=== PATIENT | female | born 1960 | race African-American/Black ===

== ENCOUNTER 2017-04-25 23:24 | Inpatient (IN) | payer OTHER ==
[2017-04-25] MEDS ORDERED: ALBUTEROL SO4 2.5/IPRATROPIUM 0.5 INH SOL 3 ML VIAL.NEB. NEB ONE (23:31)
[2017-04-26] MEDS ORDERED: MAGNESIUM SULF 50% (8.12 MEQ/2 ML-1 GM VIAL) IVPB ONE (00:08)
[2017-04-26] MEDS ORDERED: ALBUTEROL SO4 0.083% IH SOL 2.5 MG/3 ML VIAL.NEB. NEB PRN ×2 (00:08→17:13)
[2017-04-26] MEDS ORDERED: methylPREDNISolone NA SUCC 125 MG/2 ML VIAL IVPB ONE (00:08)
--- NOTE | 2017-04-26 00:08 | PDOC ---
History of Present Illness - History of Present Illness Initial Comments: 04/26/17 01:03 The patient is a 55 year old female with a significant past medical history of HTN, DM, and asthma who presents with shortness of breath and hemoptysis today s /p discharge from [facility] after a week admission for asthma exacerbation. She states she does not feel improved after her discharge and reports coughing blood today. She denies chest pain, headache and dizziness. She denies fever, chills, nausea , vomit, diarrhea and constipation. She denies dysuria, frequency, urgency and hematuria. Allergies: NKDA Past surgical history: Pt denies Social history: Pt denies toxic habits PCP - Dr. Harpreet Polo <Sahra Hay - Last Filed: 04/26/17 02:03> <Kyara Grande - Last Filed: 04/26/17 02:35> - General Chief Complaint: Asthma Stated Complaint: ASTHMA Time Seen by Provider: 04/25/17 23:30 Past History <Sahra Hay - Last Filed: 04/26/17 02:03> - Past Medical History Asthma: Yes Diabetes: Yes HTN: Yes Hypercholesterolemia: Yes - Surgical History Cholecystectomy: Yes - Psycho/Social/Smoking Cessation Hx Anxiety: No Suicidal Ideation: No Smoking History: Unknown if ever smoked Number of Cigarettes Smoked Daily: 8 Information on smoking cessation initiated: No Hx Alcohol Use: No Drug/Substance Use Hx: No Substance Use Type: None Hx Substance Use Treatment: No <Kyara Grande - Last Filed: 04/26/17 02:35> - Past Medical History Allergies/Adverse Reactions: Allergies Allergy/AdvReac Type Severity Reaction Status Date / Time No Known Allergies Allergy Verified 04/25/17 23:35 Home Medications: Ambulatory Orders Albuterol 0.083% Nebulizer Chayito [Ventolin 0.083% Nebulizer Soln -] 1 neb NEB Q6H 04/27/15 Furosemide [Lasix -] 20 mg PO DAILY 04/27/15 Hydrochlorothiazide [Hctz -] 25 mg PO DAILY 04/27/15 Insulin (Levemir) [Levemir Flexpen -] 50 units SQ HS 04/27/15 Insulin (Novolog) [Novolog Flexpen] 12 units SQ AM 04/27/15 Lisinopril [Prinivil -] 20 mg PO DAILY 04/27/15 Metoprolol Tartrate [Lopressor -] 50 mg PO DAILY 04/27/15 Verapamil HCl 10 mg PO DAILY 04/27/15 Respiratory Specific PMHX - Complaint Specific PMHX Bronchitis: Yes <HarjinderKyarawinter Arita - Last Filed: 04/26/17 02:35> Review of Systems - Review of Systems Able to Perform ROS?: Yes Comments:: 04/26/17 01:03 CONSTITUTIONAL: Absent: fever, chills, diaphoresis, generalized weakness, malaise, loss of appetite HEENT: Absent: rhinorrhea, nasal congestion, throat pain, throat swelling, difficulty swallowing, mouth swelling, ear pain, eye pain, visual Changes CARDIOVASCULAR: Absent: chest pain, syncope, palpitations, irregular heart rate, lightheadedness , peripheral edema RESPIRATORY: (+) Hemoptysis and shortness of breath, Absent: cough, dyspnea with exertion, orthopnea, wheezing, stridor, GASTROINTESTINAL: Absent: abdominal pain, abdominal distension, nausea, vomiting, diarrhea, constipation, melena, hematochezia GENITOURINARY: Absent: dysuria, frequency, urgency, hesitancy, hematuria, flank pain, genital pain MUSCULOSKELETAL: Absent: myalgia, arthralgia, joint swelling SKIN: Absent: rash, itching, pallor HEMATOLOGIC/IMMUNOLOGIC: Absent: easy bleeding, easy bruising, lymphadenopathy, frequent infections ENDOCRINE: Absent: unexplained weight gain, unexplained weight loss, heat intolerance, cold intolerance NEUROLOGIC: Absent: headache, focal weakness or paresthesias, dizziness, unsteady gait, seizure, mental status changes, bladder or bowel incontinence PSYCHIATRIC: Absent: anxiety, depression, suicidal or homicidal ideation, hallucinations. <Sahra Hay - Last Filed: 04/26/17 02:03> *Physical Exam - Vital Signs Last Vital Signs Temp Pulse Resp BP Pulse Ox 116 H 20 148/104 88 L 04/25/17 23:41 04/25/17 23:41 04/25/17 23:41 04/25/17 23:41 - Physical Exam Comments: 04/26/17 01:04 GENERAL: (+) Well developed, Obese, Awake and alert. In respiratory distress. HEENT: Normocephalic, atraumatic. PERRLA, EOMI. No conjunctival pallor. Sclera are non- icteric. Moist mucous membranes. Oropharynx is clear. NECK: Supple. Full ROM. No JVD. Carotid pulses 2+ and symmetric, without bruits. No thyromegaly. No lymphadenopathy. CARDIOVASCULAR: Regular rate and rhythm. No murmurs, rubs, or gallops. Distal pulses are 2+ and symmetric. PULMONARY: (+) respiratory distress with diffuse wheezing, No rales or rhonchi. ABDOMINAL: Soft. Non-tender. Non-distended. No rebound or guarding. No organomegaly. Normoactive bowel sounds. MUSCULOSKELETAL Normal range of motion at all joints. No bony deformities or tenderness. No CVA tenderness. EXTREMITIES: No cyanosis. No clubbing. No edema. No calf tenderness. SKIN: Warm and dry. Normal capillary refill. No rashes. No jaundice. NEUROLOGICAL: Alert, awake, appropriate. Cranial nerves 2-12 intact. Normoreflexic in the upper and lower extremities. Normal speech. Toes are down-going bilaterally. Gait is normal without ataxia. PSYCHIATRIC: Cooperative. Good eye contact. Appropriate mood and affect. <Sahra Hay - Last Filed: 04/26/17 02:03> - Vital Signs Last Vital Signs Temp Pulse Resp BP Pulse Ox 116 H 20 148/104 88 L 04/25/17 23:41 04/25/17 23:41 04/25/17 23:41 04/25/17 23:41 <Kyara Grande - Last Filed: 04/26/17 02:35> Heart Score/ECG Review - History History: Slightly suspicious - Electrocardiogram EKG: Non specific repolarization disturbance - Age Age: >/= 65 - Risk Factors Risk Factors Heart Score: Yes Hx Hypertension, Yes Hx Diabetes, Yes Hx Obesity Based on the list above the patient has:: >/=3 risk factors or Hx atherosclerotic disease - Troponin Troponin: </= normal limit - Score Heart Score - Total: 5 <Kyara Grande - Last Filed: 04/26/17 02:35> ED Treatment Course - LABORATORY CBC & Chemistry Diagram: 04/26/17 00:25 04/26/17 00:25 - ADDITIONAL ORDERS Additional order review: Laboratory Results 04/26/17 04/26/17 04/26/17 00:25 00:25 00:25 INR 1.03 Sodium Potassium Chloride Carbon Dioxide Anion Gap BUN Creatinine Creat Clearance w eGFR Random Glucose Calcium Total Bilirubin AST ALT Alkaline Phosphatase Creatine Kinase Cancelled Troponin I Cancelled B-Natriuretic Peptide Cancelled Total Protein Albumin 04/26/17 00:25 INR Sodium Cancelled Potassium Cancelled Chloride Cancelled Carbon Dioxide Cancelled Anion Gap Cancelled BUN Cancelled Creatinine Cancelled Creat Clearance w eGFR Cancelled Random Glucose Cancelled Calcium Cancelled Total Bilirubin Cancelled AST Cancelled ALT Cancelled Alkaline Phosphatase Cancelled Creatine Kinase Troponin I B-Natriuretic Peptide Total Protein Cancelled Albumin Cancelled 04/26/17 00:25 RBC 5.55 H MCV 89.1 MCHC 32.3 RDW 17.0 H MPV 8.4 Neutrophils % Y Lymphocytes % Y - RADIOLOGY Radiograph Interpretation: 04/26/17 02:03 Preliminary read of CXR by Dr. Grande reveals cardiomegaly and CHF. - Medications Given in the ED: ED Medications Discontinued Medications Generic Name Dose Route Start Last Admin Trade Name Freq PRN Reason Stop Dose Admin Magnesium Sulfate 2 gm 04/26/17 00:08 04/26/17 00:43 Magnesium Sulfate IVPB 04/26/17 00:09 2 gm ONCE ONE Administration Methylprednisolone Sodium Succinate 125 mg 04/26/17 00:08 04/26/17 00:43 Solu-Medrol - IVPB 04/26/17 00:09 125 mg ONCE ONE Administration <Sahra Hay - Last Filed: 04/26/17 02:03> - LABORATORY CBC & Chemistry Diagram: 04/26/17 00:25 04/26/17 00:25 <Kyara Grande - Last Filed: 04/26/17 02:35> Medical Decision Making - Medical Decision Making 04/26/17 02:07 67-year-old female presents with diffuse wheezing. Patient states that she was just discharged from [facility] earlier today. Past medical history significant for asthma, diabetes, CHF, obesity. EKG is initially tachycardic at 110 Exam patient lab distress, hypoxic on room air, tachycardic with diffuse expiratory wheezing Chest x-ray shows cardiomegaly, congestive heart failure. In reviewing the patient's medications as see that she is already on Lasix. She will be given Lasix IV push Patient's labs hemolyzed and therefore her BNP, chemistry and cardiac enzymes are still pending Plan-labs, IV Lasix, respiratory treatments, admission <Kyara Grande - Last Filed: 04/26/17 02:35> *DC/Admit/Observation/Transfer - Attestations Scribe Attestion: 04/26/17 01:04 Documentation prepared by Sahra Hay, acting as neuropsychology medical consultant for Kyara Grande MD <Sahra Hay - Last Filed: 04/26/17 02:03> - Discharge Dispostion Admit: Yes <Kyara Grande - Last Filed: 04/26/17 02:35> Diagnosis at time of Disposition: CHF (congestive heart failure) Qualifiers: Congestive heart failure type: unspecified congestive heart failure type Congestive heart failure chronicity: acute on chronic Qualified Code(s): I50.9 - Heart failure, unspecified Asthma Qualifiers: Asthma severity: unspecified severity Asthma complication type: uncomplicated Qualified Code(s): J45.909 - Unspecified asthma, uncomplicated Diabetes Qualifiers: Diabetes mellitus type: type 1 Diabetes mellitus complication status: with hyperglycemia Qualified Code(s): E10.65 - Type 1 diabetes mellitus with hyperglycemia - Referrals Referrals: Harpreet Polo MD [Primary Care Provider] -
[2017-04-26] MEDS ORDERED: MAGNESIUM SULF 50% (8.12 MEQ/2 ML-1 GM VIAL) ONE (00:34)
[2017-04-26] MEDS ORDERED: methylPREDNISolone NA SUCC 125 MG/2 ML VIAL ONE (00:34)
[2017-04-26 00:40] LABS: MCH 28.8 pg (25.7-33.7); MCHC 32.3 g/dl (32.0-36.0); MEAN CELL VOLUME 89.1 fl (80-96); MEAN PLT VOLUME 8.4 fl (7.5-11.1); PLATELET COUNT 333 K/MM3 (134-434); WHITE BLOOD COUNT 21.5 K/mm3 (4.0-10.0)
[2017-04-26 00:53] LABS: INR 1.03 (0.82-1.09); PROTHROMBIN TIME (PATIENT) 11.3 SEC (9.98-11.88)
[2017-04-26 01:28] LABS: PLATELET ESTIMATE ADEQUATE (NORMAL); TOTAL CELLS COUNTED 100
[2017-04-26] MEDS ORDERED: ALBUTEROL SO4 2.5/IPRATROPIUM 0.5 INH SOL 3 ML VIAL.NEB. NEB ONE (01:55)
[2017-04-26] MEDS ORDERED: FUROSEMIDE 40 MG/4 ML INJECTABLE VIAL IVPUSH ONE (02:02)
[2017-04-26] MEDS ORDERED: FUROSEMIDE 40 MG/4 ML INJECTABLE VIAL ONE ×3 (02:06→14:14)
[2017-04-26] MEDS ORDERED: ACETAMINOPHEN 325 MG TABLET (FP) ONE (02:16)
[2017-04-26] MEDS ORDERED: ACETAMINOPHEN 325 MG TABLET (FP) PO ONE ×2 (02:19)
[2017-04-26 02:43] LABS: ALBUMIN 2.8 g/dl (3.4-5.0); ALK PHOS 141 U/L (45-117); ANION GAP 10 (8-16); BILIRUBIN,TOTAL 0.5 mg/dL (0.2-1.0); CALCIUM 8.6 mg/dL (8.5-10.1); CO2 31 mmol/L (21-32); CREATININE 0.7 mg/dL (0.55-1.02); GLUCOSE,RANDOM 242 mg/dL (74-106); SGOT/AST 12 U/L (15-37); SGPT/ALT 23 U/L (12-78); TOT PROT 6.3 g/dl (6.4-8.2)
[2017-04-26 02:50] LABS: TROPONIN I 0.05 ng/ml (0.00-0.05)
[2017-04-26 06:08] LABS: TROPONIN I 0.05 ng/ml (0.00-0.05)
[2017-04-26] MEDS: FUROSEMIDE 40 MG/4 ML INJECTABLE VIAL IVPB SCH ×2 (07:11→14:16)
[2017-04-26] MEDS: INSULIN SLIDING SCALE (NOVOLOG) 1 VIAL SQ SCH ×3 (07:26→17:00)
[2017-04-26] MEDS ORDERED: LISINOPRIL 20 MG TABLET (FP) ONE (09:17)
[2017-04-26] MEDS: METOPROLOL TARTRATE 25 MG TABLET (FP) PO SCH (09:31)
[2017-04-26] MEDS: methylPREDNISolone NA SUCC 125 MG/2 ML VIAL IVPB SCH ×2 (09:31→14:52)
[2017-04-26] MEDS: LISINOPRIL 20 MG TABLET (FP) PO SCH (09:31)
[2017-04-26] MEDS ORDERED: CEFTRIAXONE 50 ML ONE (09:31)
[2017-04-26] MEDS ORDERED: LEVOFLOXACIN 750 MG IVPB 150 ML IVPB ONE (09:44)
--- NOTE | 2017-04-26 09:46 | HP ---
Admitting History and Physical - Admission History of Present Illness: 55 year old female with a significant past medical history of HTN, DM, and asthma who presents with shortness of breath and hemoptysis today s/p discharge from [facility] after a week admission for asthma exacerbation. She states she does not feel improved after her discharge and reports coughing blood today. PT C/O COUGH,SOB AND HEMOPTYSIS - Past Medical History Cardiovascular: Yes: HTN, Hyperlipdemia. No: AFIB, CAD Pulmonary: Yes: Asthma, COPD. No: Pulmonary Embolus Gastrointestinal: Yes: GERD. No: Cancer Endocrine: Yes: Diabetes Mellitus - Smoking History Smoking history: Unknown if ever smoked Have you smoked in the past 12 months: No Aproximately how many cigarettes per day: 8 - Alcohol/Substance Use Hx Alcohol Use: No Home Medications - Allergies Allergies/Adverse Reactions: Allergies Allergy/AdvReac Type Severity Reaction Status Date / Time No Known Allergies Allergy Verified 04/25/17 23:35 - Home Medications Home Medications: Ambulatory Orders Furosemide [Lasix -] 40 mg PO DAILY 04/27/15 Insulin (Levemir) [Levemir Flexpen -] 80 units SQ HS 04/27/15 Albuterol 2.5/Ipratropium 0.5 [Duoneb -] 1 neb NEB Q4H PRN 04/26/17 Amlodipine/Valsartan [Amlodipine-Valsartan 5-160 mg] 1 each PO DAILY 04/26/17 Atorvastatin Ca [Lipitor] 10 mg PO HS 04/26/17 Dapagliflozin Propanediol [Farxiga] 10 mg PO DAILY 04/26/17 Linaclotide [Linzess] 145 mcg PO DAILY 04/26/17 Montelukast Na [Singulair -] 10 mg PO HS 04/26/17 Review of Systems - Review of Systems Cardiovascular: reports: Edema, Shortness of Breath. denies: Chest Pain, Palpitations Respiratory: reports: Cough, Hemoptysis, SOB, SOB on Exertion, Wheezing Gastrointestinal: denies: Abdominal Pain, Rectal Bleeding Genitourinary: reports: No Symptoms Neurological: reports: No Symptoms. denies: Change in LOC Physical Examination Vital Signs: Vital Signs Temperature Pulse Rate 108 H 04/26/17 07:10 Respiratory Rate 20 04/26/17 07:10 Blood Pressure 138/92 04/26/17 07:10 O2 Sat by Pulse Oximetry (%) 97 04/26/17 07:29 Neck: Yes: Supple Cardiovascular: Yes: Regular Rate and Rhythm Respiratory: Yes: Diminished, On Nasal O2, Rhonchi, Wheezes Gastrointestinal: Yes: Normal Bowel Sounds, Soft. No: Tenderness Edema: Yes Edema: LLE: 2+, RLE: 2+ Imaging - Results Cat Scan: Report Reviewed Problem List - Problems (1) COPD exacerbation Assessment/Plan: IV STEROIDS IV ABX NEBS PULM CONSULT Code(s): J44.1 - CHRONIC OBSTRUCTIVE PULMONARY DISEASE W (ACUTE) EXACERBATION (2) Hemoptysis Assessment/Plan: MAYBE DUE TO PNA R/O MALIGNANCY Code(s): R04.2 - HEMOPTYSIS (3) Pneumonia Assessment/Plan: ABOVE Code(s): J18.9 - PNEUMONIA, UNSPECIFIED ORGANISM (4) CHF (congestive heart failure) Assessment/Plan: IV LASIX ECHO CARDIO Code(s): I50.9 - HEART FAILURE, UNSPECIFIED Qualifiers: Congestive heart failure type: unspecified congestive heart failure type Congestive heart failure chronicity: acute on chronic Qualified Code(s): I50.9 - Heart failure, unspecified (5) Diabetes Assessment/Plan: INSULIN BGM ENDO Code(s): E11.9 - TYPE 2 DIABETES MELLITUS WITHOUT COMPLICATIONS Qualifiers: Diabetes mellitus type: type 1 Diabetes mellitus complication status: with hyperglycemia Qualified Code(s): E10.65 - Type 1 diabetes mellitus with hyperglycemia (6) Edema Assessment/Plan: LASIX DUPLEX Code(s): R60.9 - EDEMA, UNSPECIFIED
[2017-04-26] MEDS ORDERED: ASPIRIN COATED 81 MG TABLET.EC PO SCH (10:00)
[2017-04-26] MEDS ORDERED: HEPARIN NA (PORCINE) 5,000 UNITS/ML 1ML VIAL SQ SCH (10:00)
[2017-04-26] MEDS ORDERED: CEFTRIAXONE 1 GM in DEXTROSE 5%-WATER - 50 ML IVPB SCH (10:00)
[2017-04-26 10:15] LABS: BASOPHIL 0.3 % (0-2.0); MCHC 32.6 g/dl (32.0-36.0); MEAN CELL VOLUME 89.2 fl (80-96); MEAN PLT VOLUME 8.1 fl (7.5-11.1); NEUTROPHILS 94.4 % (42.8-82.8); PLATELET COUNT 296 K/MM3 (134-434); RDW 16.6 % (11.6-15.6); WHITE BLOOD COUNT 19.2 K/mm3 (4.0-10.0)
[2017-04-26 10:31] LABS: INR 1.09 (0.82-1.09); TROPONIN I 0.03 ng/ml (0.00-0.05)
[2017-04-26 10:34] LABS: ACTIVATED PTT 32.1 SECONDS (26.9-34.4)
--- NOTE | 2017-04-26 11:08 | EKG ---
Test Reason : Blood Pressure : / mmHG Vent. Rate : 110 BPM Atrial Rate : 110 BPM P-R Int : 136 ms QRS Dur : 086 ms QT Int : 348 ms P-R-T Axes : 059 084 074 degrees QTc Int : 470 ms POOR DATA QUALITY, INTERPRETATION MAY BE ADVERSELY AFFECTED SINUS TACHYCARDIA POSSIBLE LEFT ATRIAL ENLARGEMENT SEPTAL INFARCT , AGE UNDETERMINED ABNORMAL ECG WHEN COMPARED WITH ECG OF 17-SEP-2007 18:46, FUSION COMPLEXES ARE NO LONGER PRESENT VENT. RATE HAS INCREASED BY 39 BPM NONSPECIFIC T WAVE ABNORMALITY NO LONGER EVIDENT IN INFERIOR LEADS Confirmed by MEGAN GANDHI MD ([id number]) on 04/26/2017 11:08:03 AM Referred By: Confirmed By:MEGAN GANDHI MD
--- NOTE | 2017-04-26 11:10 | EKG ---
Test Reason : Blood Pressure : / mmHG Vent. Rate : 087 BPM Atrial Rate : 087 BPM P-R Int : 142 ms QRS Dur : 090 ms QT Int : 428 ms P-R-T Axes : 051 113 092 degrees QTc Int : 515 ms NORMAL SINUS RHYTHM POSSIBLE LEFT ATRIAL ENLARGEMENT RIGHT AXIS DEVIATION PROLONGED QT ABNORMAL ECG WHEN COMPARED WITH ECG OF 26-APR-2017 00:34, NO SIGNIFICANT CHANGE WAS FOUND Confirmed by OKSANA MANSFIELD, MEGAN ([id number]) on 04/26/2017 11:10:21 AM Referred By: MARQUIS GARDNER DR Confirmed By:MEGAN GANDHI MD
[2017-04-26] MEDS ORDERED: INSULIN (NOVOLOG) ASPART 100 UNITS/ML 10ML VIAL SQ ONE (13:49)
--- NOTE | 2017-04-26 14:32 | CON.CARD ---
Consult Consult Specialty:: Cardiology Reason for Consultation:: CHF - History of Present Illness History of Present Illness: 57 F diabetic with HTN and asthma with history of NICM sp cath 10/2016 showing EF 50% and no coronary obstruction. She was treated for PNA at [facility] but is readmitted here with hempotosis and dyspnea/edema. There is no chest pain, orthopnea, palpitaitons. Has been complaint with medications prior to admission. At baseline has unlimited exercise capacity. Echocardiogram today showed moderate diffuse LV systolic dysfunction. - History Source History Provided By: Patient, Medical Record Limitations to Obtaining History: No Limitations - Past Medical History Cardio/Vascular: Yes: HTN, Hyperlipdemia, Other. No: AFIB, CAD Pulmonary: Yes: Asthma, COPD. No: Pulmonary Embolus Gastrointestinal: Yes: GERD. No: Cancer Endocrine: Yes: Diabetes Mellitus - Alcohol/Substance Use Hx Alcohol Use: No - Smoking History Smoking history: Unknown if ever smoked Have you smoked in the past 12 months: No Aproximately how many cigarettes per day: 8 Home Medications - Allergies Allergies/Adverse Reactions: Allergies Allergy/AdvReac Type Severity Reaction Status Date / Time No Known Allergies Allergy Verified 04/25/17 23:35 - Home Medications Home Medications: Ambulatory Orders Furosemide [Lasix -] 40 mg PO DAILY 04/27/15 Insulin (Levemir) [Levemir Flexpen -] 80 units SQ HS 04/27/15 Albuterol 2.5/Ipratropium 0.5 [Duoneb -] 1 neb NEB Q4H PRN 04/26/17 Amlodipine/Valsartan [Amlodipine-Valsartan 5-160 mg] 1 each PO DAILY 04/26/17 Atorvastatin Ca [Lipitor] 10 mg PO HS 04/26/17 Dapagliflozin Propanediol [Farxiga] 10 mg PO DAILY 04/26/17 Linaclotide [Linzess] 145 mcg PO DAILY 04/26/17 Montelukast Na [Singulair -] 10 mg PO HS 04/26/17 Review of Systems - Review of Systems Constitutional: reports: No Symptoms Eyes: reports: No Symptoms HENT: reports: No Symptoms Neck: reports: No Symptoms Cardiovascular: reports: Edema, Shortness of Breath Respiratory: reports: Cough, SOB, SOB on Exertion Gastrointestinal: reports: No Symptoms Neurological: reports: No Symptoms Vital Signs: Vital Signs Temperature 97.9 F 04/26/17 13:27 Pulse Rate 87 04/26/17 13:27 Respiratory Rate 19 04/26/17 13:27 Blood Pressure 142/94 04/26/17 13:27 O2 Sat by Pulse Oximetry (%) 97 04/26/17 13:27 Constitutional: Yes: Obese Eyes: Yes: Conjunctiva Clear, EOM Intact HENT: Yes: Atraumatic, Normocephalic Neck: Yes: Supple, Trachea Midline Respiratory: Yes: Rhonchi Gastrointestinal: Yes: Normal Bowel Sounds, Soft Cardiovascular: Yes: Regular Rate and Rhythm JVD: Yes Carotid Bruit: No PMI: Non-Displaced Heart Sounds: Yes: S1, S2 Edema: Yes Edema: LLE: 1+, RLE: 1+ - Other Data Labs, Other Data: CBC, BMP 04/26/17 09:50 INR, PTT INR 1.09 (0.82-1.09) 04/26/17 09:50 Troponin, BNP 04/26/17 04/26/17 05:30 09:50 Troponin I 0.05 0.03 Troponin, BNP 04/26/17 04/26/17 05:30 09:50 Troponin I 0.05 0.03 Laboratory Tests 04/26/17 02:10 B-Natriuretic Peptide 1373.87 H Imaging - Results Chest X-ray: Report Reviewed X-ray: Report Reviewed Cat Scan: Report Reviewed EKG: Image Reviewed (NSR no STT changes.) Problem List - Problems (1) CHF (congestive heart failure) Code(s): I50.9 - HEART FAILURE, UNSPECIFIED Qualifiers: Congestive heart failure type: unspecified congestive heart failure type Congestive heart failure chronicity: acute on chronic Qualified Code(s): I50.9 - Heart failure, unspecified (2) Pneumonia Code(s): J18.9 - PNEUMONIA, UNSPECIFIED ORGANISM Assessment/Plan Diabetic 57 yo woman with prior history of NICM (negative cath 10/2016 EF 50%) multilobar PNA and acute on chronic systolic CHF exacerbation. Rec: Lasix 40mg IV BID continue Valsartan Hold Amlodipine Continue Metoprolol
[2017-04-26] MEDS ORDERED: PNEUMOC 13-VAL CONJ-DIP CRM/PF 0.5 ML DISP.SYRIN IM ONE (16:21)
[2017-04-26 16:42] VITALS: BMI 35.0
[2017-04-26] MEDS ORDERED: PNEUMOCOCCAL 23 VACCINE 0.5 ML VIAL IM ONE (16:45)
--- NOTE | 2017-04-26 16:59 | PN ---
Progress Note (short form) - Note Progress Note: PULMONARY IMP EXTENSIVE BILATERAL CONSOLIDATIONS LIKELY PNEUMONIA,?INFLAMMATORY,?MALIGNANT HEMOPTYSIS SECONDARY TO ABOVE CHF NON-ISCHEMIC CARDIOMYOPATHY MEDIASTINAL AND HILAR ADENOPATHY ?REACTIVE,?MALIGNANT,?SARCOID COPD/ASTHMA ERYTHROCYTOSIS DM HTN LIKEY OSAS PLAN BROAD SPECTRUM ANTIBIOTICS INHALED BRONCHODILATORS O2 STEROID TAPER LASIX CULTURES,AFB SPUTUM CYTOLOGY LEGIONELLA URINARY ANTIGEN COLD AGGLUTININS FLEX BRONCHOSCOPY IF NO IMPROVEMENT MONITOR CBC QUANTIFERON GOLD FOLLOWUP CHEST CT 6-8WKS TO DOCUMENT RESOLUTION OF INFILTRATES SLEEP SCREEN DR LOMELI Problem List - Problems (1) CHF (congestive heart failure) Code(s): I50.9 - HEART FAILURE, UNSPECIFIED Qualifiers: Congestive heart failure type: unspecified congestive heart failure type Congestive heart failure chronicity: acute on chronic Qualified Code(s ): I50.9 - Heart failure, unspecified (2) COPD exacerbation Code(s): J44.1 - CHRONIC OBSTRUCTIVE PULMONARY DISEASE W (ACUTE) EXACERBATION (3) Diabetes Code(s): E11.9 - TYPE 2 DIABETES MELLITUS WITHOUT COMPLICATIONS Qualifiers: Diabetes mellitus type: type 1 Diabetes mellitus complication status: with hyperglycemia Qualified Code(s): E10.65 - Type 1 diabetes mellitus with hyperglycemia (4) Edema Code(s): R60.9 - EDEMA, UNSPECIFIED (5) Hemoptysis Code(s): R04.2 - HEMOPTYSIS (6) Pneumonia Code(s): J18.9 - PNEUMONIA, UNSPECIFIED ORGANISM (7) Mediastinal adenopathy Code(s): R59.0 - LOCALIZED ENLARGED LYMPH NODES (8) Cardiomyopathy Code(s): I42.9 - CARDIOMYOPATHY, UNSPECIFIED
--- NOTE | 2017-04-26 17:16 | PN ---
Progress Note (short form) - Note Progress Note: ID consult dictated imp/reccd 57 year old female PMH diabetes and asthma just admitted at [facility] for cough and asthma- 04/17 to 04/25 she left yesterday and was admitted here last night with SOB, subjective fevers at home and hemoptysis for the last 2 days no weight loss no history of TB Ct scan shows patchy nodular infiltrates including LYL and mediastinal adenopathy originally from [place] spoke to doctor at [facility]- no antibiotics there, treated with steroids and diuretics and nebs pneumonia with hemoptysis- r/o tb infectious- cover for hcap ?inflammatory- r/o sarcoid r/o neoplasm sputum culture sputum afb quant gold esr/crp sputum cytology urinary antigens levaquin and ceftriaxone today given in ED will switch to zosyn/vancomycin-has been in the hospital for 7 days at [facility] will cover for HCAP mediastinal adenopathy asthma exacerbation diabetes d/w pulmonary Problem List - Problems (1) Pneumonia Code(s): J18.9 - PNEUMONIA, UNSPECIFIED ORGANISM (2) Mediastinal adenopathy Code(s): R59.0 - LOCALIZED ENLARGED LYMPH NODES (3) Asthma Code(s): J45.909 - UNSPECIFIED ASTHMA, UNCOMPLICATED Qualifiers: Asthma severity: unspecified severity Asthma complication type: uncomplicated Qualified Code(s): J45.909 - Unspecified asthma, uncomplicated (4) Cardiomyopathy Code(s): I42.9 - CARDIOMYOPATHY, UNSPECIFIED
[2017-04-26] MEDS ORDERED: PIPERACILLIN/TAZOBACTAM 4.5 GM VIAL IVPB ONE (17:58)
[2017-04-26] MEDS ORDERED: DEXTROSE 5%-WATER 100 ML IVPB ONE (17:59)
[2017-04-26] MEDS ORDERED: PIPERACILLIN/TAZOB 4.5 GM/100 ML PRE-DOCKED IVPB SCH (18:00)
[2017-04-26] MEDS: ALBUTEROL SO4 2.5/IPRATROPIUM 0.5 INH SOL 3 ML VIAL.NEB. NEB SCH (18:03)
[2017-04-26] MEDS: PIPERACILLIN/TAZOB 4.5 GM 4.5 GM in DEXTROSE 5%-WATER 100 ML IVPB SCH (18:31)
[2017-04-26] MEDS: methylPREDNISolone NA SUCC 40 MG/1 ML VIAL IVPB SCH (21:59)
[2017-04-26] MEDS ORDERED: INSULIN DETEMIR 100 UNITS/ML MDV SQ SCH (22:00)
[2017-04-26] MEDS ORDERED: VANCOMYCIN 1 GRAM (PRE-DOCKED) 1,000 MG/250 ML BAG IVPB SCH (22:00)
[2017-04-26] MEDS ORDERED: INSULIN (NOVOLOG) ASPART 100 UNITS/ML 10ML VIAL ONE (22:00)
[2017-04-26] MEDS: VANCOMYCIN 1,000 MG in DEXTROSE 5%-WATER - 250 ML IVPB SCH (22:54)
[2017-04-27] MEDS: INSULIN SLIDING SCALE (NOVOLOG) 1 VIAL SQ SCH ×7 (00:31→21:11)
[2017-04-27] MEDS ORDERED: PIPERACILLIN/TAZOBACTAM 4.5 GM VIAL IVPB ONE (00:58)
[2017-04-27] MEDS ORDERED: DEXTROSE 5%-WATER 100 ML IVPB ONE (00:59)
[2017-04-27] MEDS: PIPERACILLIN/TAZOB 4.5 GM 4.5 GM in DEXTROSE 5%-WATER 100 ML IVPB SCH ×2 (02:57→10:36)
[2017-04-27] MEDS: methylPREDNISolone NA SUCC 40 MG/1 ML VIAL IVPB SCH ×4 (03:49→21:10)
[2017-04-27] MEDS: FUROSEMIDE 40 MG/4 ML INJECTABLE VIAL IVPB SCH ×2 (05:47→13:42)
[2017-04-27] MEDS: INSULIN DETEMIR 100 UNITS/ML MDV SQ SCH ×2 (06:11→17:34)
[2017-04-27] MEDS: ALBUTEROL SO4 2.5/IPRATROPIUM 0.5 INH SOL 3 ML VIAL.NEB. NEB SCH ×4 (06:34→18:21)
[2017-04-27 07:26] LABS: BASOPHIL 0.4 % (0-2.0); MCH 28.9 pg (25.7-33.7); MCHC 32.3 g/dl (32.0-36.0); MEAN CELL VOLUME 89.6 fl (80-96); MEAN PLT VOLUME 8.4 fl (7.5-11.1); NEUTROPHILS 88.5 % (42.8-82.8); PLATELET COUNT 293 K/MM3 (134-434); RDW 17.1 % (11.6-15.6)
--- NOTE | 2017-04-27 07:34 | CONS ---
DATE OF CONSULTATION: 04/26/2017 HISTORY OF PRESENT ILLNESS: This is a 57-year-old woman with a past medical history of diabetes and asthma. She was admitted late last night after she was discharged yesterday after spending a week at [facility] for cough and asthma. She reports she got sick about a week ago. She was coughing. Her asthma acted up. She was admitted to [facility]. She was discharged yesterday afternoon. She reported she really did not feel any better. Also reports for the last 2 days she has had hemoptysis. After going home, she felt she had subjective fever and presented to the emergency room. On further conversation with the patient, she was discharged on oral prednisone and was treated for an asthma exacerbation as well as for CHF with diuretics. She did not receive any antibiotics at [facility]. ALLERGIES: She has no known drug allergies. PAST MEDICAL HISTORY: Notable for asthma, diabetes, hypertension, hypercholesterolemia. She knows she has some trouble with her heart. She does not know the nature of this. She is status post cholecystectomy. She has a history of nonischemic cardiomyopathy and is status post catheterization in October 2015 with no coronary obstruction. She had a CAT scan done in the emergency room and was found to have bilateral multifocal pneumonia with nodular infiltrates both of the left upper lobe and left lower lobe with air bronchograms as well as the right lower lobe. She has atelectasis as well. There is no accompanying effusion. She has enlarged mediastinal lymph nodes. She had a duplex of her legs done as well that revealed no DVT. MEDICATIONS AT HOME: Include Lasix, insulin, Duo-Nebs, amlodipine, valsartan, atorvastatin, Farxiga, Linzess, Singulair, and she was on a prednisone taper. SOCIAL HISTORY: She is originally from [place]. 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 She has been on disability for the last 10 years. Currently, she unfortunately lost her apartment and she is living among relatives. There is no history of any cigarette or substance use. PRIMARY CARE PHYSICIAN: Dr. Polo PHYSICAL EXAMINATION:General: She is awake and alert. Vital Signs: Her temperature is 98.7, pulse is 92, blood pressure is 147/88, respiratory rate is 20, she weighs 217 pounds. HEENT: She is normocephalic. Her eyes are anicteric. She has no thrush. Neck: Supple. Lungs: Have scattered rhonchi and wheezes. Heart: Regular rate and rhythm. Abdomen: Soft, nontender. Extremities: Without edema. She has no rash. LABORATORIES: White count is 19.2, hemoglobin 16.1, hematocrit of 49.3, platelets of 296. Her INR is 1. BUN is 19 and creatinine is 0.7 with an alkaline phosphatase of 141. Her CAT scan findings as previously described show multifocal infiltrates and mediastinal adenopathy. ASSESSMENT: In summary, this is a 57-year-old woman originally from [place] with no history of tuberculosis, but she does not know her PPD status, admitted with hemoptysis, just discharged after a 7-day admission to another hospital, [facility]. RECOMMENDATIONS: Given the hemoptysis and the nodular infiltrates, would obtain a QuantiFERON gold, rule out TB. Obtain a regular sputum as well and treat her for HCAP. As well, would consider sarcoid given the nodular infiltrates and mediastinal adenopathy as well as possible neoplasm. Would obtain sputum AFB, sedimentation rate, CRP, sputum cytology, urinary antigens. If she has not had an HIV test, this should be obtained as well. She was given Levaquin and ceftriaxone today in the emergency room. Would switch her to Zosyn and vancomycin. Given the recent admission to [facility], she will need coverage for hospital-acquired pneumonia. Further recommendations to follow. Case was discussed at length with Pulmonary. MILLI DAVIS M.D. JEREMIAH/[id number]
--- NOTE | 2017-04-27 07:51 | CONS ---
DATE OF CONSULTATION: 04/26/2017 REFERRING PHYSICIAN: Ronnie Winkler MD HISTORY OF PRESENT ILLNESS: The patient is a 57-year-old female with a past medical history of nonischemic cardiomyopathy, moderate LV dysfunction, hypertension, asthma, history of tobacco use of a pack per day since age 15 and quit about a month ago, asthma/COPD, hyperlipidemia, admitted to [facility], recently discharged from [facility] on April 25 after hospitalization for asthma exacerbation. Patient apparently was treated with bronchodilators and steroids on previous hospitalization. She was also noted to have elevated WBC as well as hemoglobin and hematocrit. She apparently was evaluated by Hematology. Patient was discharged yesterday and presented to [facility] ER today with complaint of moderate amount of hemoptysis. She also complained of chills and fever, but did not actually take a temp. She denied any chest pain, just complained of shortness of breath. She presented to the emergency room with the above. In the ER she had a CT scan of the chest which revealed extensive bilateral consolidations, also noted mediastinal lymphadenopathy and bilateral hilar adenopathy. Patient was admitted. She was started on antibiotic therapy. She denies any previous history of known hemoptysis. She denies any prior history of pneumonia. She was born in [place], moved to the [place] in the 1980s. There is no history of TB in the past. She denies any history of occupational exposure to chemical fumes. PAST MEDICAL HISTORY: Again includes nonischemic cardiomyopathy, moderate LV dysfunction noted on echocardiogram earlier, hypertension, asthma, diabetes mellitus, COPD, hyperlipidemia, and hypertension. REVIEW OF SYSTEMS: Positive cough, positive shortness of breath, positive hemoptysis, positive chills. No chest pain. No palpitations. No nausea. No vomiting. No diaphoresis. CURRENT MEDICATIONS: Include Solu-Medrol 80 q.6, Prinivil, ceftriaxone, Lopressor, NovoLog, Levemir, Lasix, and Prevnar. PHYSICAL EXAMINATION: General: The patient is an obese female, but awake, alert, in no acute distress. Vital signs: She is currently afebrile, blood pressure 147/88, respiratory rate 20, O2 saturation is 94% on 2 L. HEENT: Head is normocephalic atraumatic. Neck: Supple. Heart: Regular, S1, S2. Chest: Scattered bilateral wheezes and rhonchi. Abdomen: Soft. Bowel sounds are positive. Extremities: No sign of bilateral lower extremity edema. LABORATORIES: Hemoglobin A1c is 10.7, BUN 19, creatinine 0.7. BNP 1373. WBC is 19.2, hemoglobin 16.1, hematocrit 49.3, with a platelet count of 296,000. Chest x-ray shows cardiomegaly, consolidated opacities of bilateral upper lobes compatible with pneumonia. Chest CT showed bilateral patchy consolidations, mediastinal and hilar adenopathy, borderline sized main pulmonary artery. There is determined left adrenal nodule. IMPRESSION: 1. Extensive bilateral consolidations likely pneumonia, treate as health-care- associated pneumonia. 2. Possible neoplasia,Inflammatory. 3. Erythrocytosis. 4. Hemoptysis secondary to pneumonia. 5. Hypertension. 6. Congestive heart failure, most likely a component secondary to pneumonia , nonischemic cardiomyopathy. PLAN: Sputum cytology, C&S, AFB, broad spectrum antibiotics as per Infectious Disease, obtain cultures, check CRP, taper of steroids, follow up chest x-ray, monitor CBC, check O2 saturation at rest and post exercise prior to discharge also consider sleep screen when patient is more stable. Also pulmonary function test as an outpatient. Follow up chest CT as an outpatient to document resolution of consolidations. If no improvement in hemoptysis or infiltrates, will schedule for a flexible bronchoscopy. TAMELA LOMELI M.D. CÉSAR/[id number] MTDD
[2017-04-27 08:00] LABS: ALBUMIN 2.7 g/dl (3.4-5.0); ANION GAP 9 (8-16); BILIRUBIN,TOTAL 0.7 mg/dL (0.2-1.0); C-REACTIVE PROTEIN 10.7 MG/DL (0.00-0.3); CO2 33 mmol/L (21-32); CREATININE 0.7 mg/dL (0.55-1.02); GLUCOSE,RANDOM 272 mg/dL (74-106); SGOT/AST 13 U/L (15-37); SGPT/ALT 26 U/L (12-78); TOT PROT 6.5 g/dl (6.4-8.2)
[2017-04-27 08:01] LABS: ALK PHOS 188 U/L (45-117)
[2017-04-27] MEDS ORDERED: PT OWN MED DRAWER 7, Y5N ONE ×3 (08:49→20:55)
--- NOTE | 2017-04-27 08:57 | PN ---
Progress Note, Physician History of Present Illness: FEELS BETTER LESS SOB NO CP - Current Medication List Current Medications: Active Medications Albuterol Sulfate (Ventolin 0.083% Nebulizer Soln -) 1 amp NEB Q4H PRN PRN Reason: SHORT OF BREATH/WHEEZING Albuterol/Ipratropium (Duoneb -) 1 amp NEB QIDR [facility] Last Admin: 04/27/17 06:34 Dose: 1 amp Furosemide (Lasix Injection -) 40 mg IVPB BIDLASIX [facility] Last Admin: 04/27/17 05:47 Dose: 40 mg Piperacillin Sod/Tazobactam (Sod 4.5 gm/ Dextrose) 100 mls @ 200 mls/hr IVPB Q8H-IV [facility] Last Admin: 04/27/17 02:57 Dose: 200 mls/hr Vancomycin HCl 1,000 mg/ (Dextrose) 250 mls @ 250 mls/hr IVPB BID [facility] Last Admin: 04/26/17 22:54 Dose: 250 mls/hr Insulin Aspart (Novolog Vial Sliding Scale -) 1 vial SQ Q4HPO [facility] PRN Reason: Protocol Last Admin: 04/27/17 06:10 Dose: 8 units Insulin Detemir (Levemir Vial) 50 units SQ BIDI [facility] Last Admin: 04/27/17 06:11 Dose: 50 units Lisinopril (Prinivil) 20 mg PO DAILY [facility] Last Admin: 04/26/17 09:31 Dose: 20 mg Methylprednisolone Sodium Succinate (Solu-Medrol -) 40 mg IVPB Q6H-IV [facility] Last Admin: 04/27/17 03:49 Dose: 40 mg Metoprolol Tartrate (Lopressor -) 25 mg PO DAILY [facility] Last Admin: 04/26/17 09:31 Dose: 25 mg - Objective Vital Signs: Vital Signs Temperature 97.9 F 04/27/17 06:00 Pulse Rate 86 04/27/17 06:00 Respiratory Rate 19 04/27/17 06:00 Blood Pressure 142/84 04/27/17 06:00 O2 Sat by Pulse Oximetry (%) 97 04/27/17 06:00 Cardiovascular: Yes: Murmur, S1, S2 Respiratory: Yes: Rales, Rhonchi Gastrointestinal: Yes: Normal Bowel Sounds, Soft Labs: CBC, BMP 04/27/17 05:35 04/27/17 05:35 INR, PTT INR 1.09 (0.82-1.09) 04/26/17 09:50 Problem List - Problems (1) COPD exacerbation Assessment/Plan: IV STEROIDS IV ABX NEBS PULM CONSULT Code(s): J44.1 - CHRONIC OBSTRUCTIVE PULMONARY DISEASE W (ACUTE) EXACERBATION (2) Hemoptysis Assessment/Plan: MAYBE DUE TO PNA R/O MALIGNANCY PULM/ID ON BOARD ISOLATION Code(s): R04.2 - HEMOPTYSIS (3) Pneumonia Code(s): J18.9 - PNEUMONIA, UNSPECIFIED ORGANISM (4) CHF (congestive heart failure) Assessment/Plan: IV LASIX ECHO CARDIO Code(s): I50.9 - HEART FAILURE, UNSPECIFIED Qualifiers: Congestive heart failure type: unspecified congestive heart failure type Congestive heart failure chronicity: acute on chronic Qualified Code(s ): I50.9 - Heart failure, unspecified (5) Diabetes Assessment/Plan: INSULIN BGM ENDO Code(s): E11.9 - TYPE 2 DIABETES MELLITUS WITHOUT COMPLICATIONS Qualifiers: Diabetes mellitus type: type 1 Diabetes mellitus complication status: with hyperglycemia Qualified Code(s): E10.65 - Type 1 diabetes mellitus with hyperglycemia (6) Edema Assessment/Plan: LASIX DUPLEX Code(s): R60.9 - EDEMA, UNSPECIFIED
[2017-04-27] MEDS: LISINOPRIL 20 MG TABLET (FP) PO SCH (09:09)
[2017-04-27] MEDS: METOPROLOL TARTRATE 25 MG TABLET (FP) PO SCH (09:09)
[2017-04-27] MEDS: VANCOMYCIN 1,000 MG in DEXTROSE 5%-WATER - 250 ML IVPB SCH (09:09)
[2017-04-27] MEDS ORDERED: PIPERACILLIN/TAZOB 4.5 GM 4.5 GM in SODIUM CHLORIDE 100 ML IVPB SCH (10:28)
[2017-04-27] MEDS ORDERED: INSULIN (NOVOLOG) ASPART 100 UNITS/ML 10ML VIAL ONE (10:28)
[2017-04-27] MEDS: PIPERACILLIN/TAZOB 4.5 GM 4.5 GM in SODIUM CHLORIDE 100 ML IVPB SCH ×2 (10:35→17:35)
--- NOTE | 2017-04-27 12:21 | PN ---
Progress Note (short form) - Note Progress Note: Feels a little better today. No francisco hemoptysis, but some blood tinged sputum. Intake & Output 04/24/17 04/25/17 04/26/17 04/27/17 23:59 23:59 23:59 23:59 Intake Total 310 1050 Balance 310 1050 Weight 195 lb 217 lb 220 lb Last Vital Signs Temp Pulse Resp BP Pulse Ox 97.9 F 82 19 142/84 95 04/27/17 06:00 04/27/17 11:31 04/27/17 06:00 04/27/17 06:00 04/27/17 11:31 Active Medications Albuterol Sulfate (Ventolin 0.083% Nebulizer Soln -) 1 amp NEB Q4H PRN PRN Reason: SHORT OF BREATH/WHEEZING Albuterol/Ipratropium (Duoneb -) 1 amp NEB QIDR [facility] Last Admin: 04/27/17 11:32 Dose: 1 amp Furosemide (Lasix Injection -) 40 mg IVPB BIDLASIX [facility] Last Admin: 04/27/17 05:47 Dose: 40 mg Vancomycin HCl 1,000 mg/ (Sodium Chloride) 250 mls @ 166.667 mls/hr IVPB BID [facility] Piperacillin Sod/Tazobactam (Sod 4.5 gm/ Sodium Chloride) 100 mls @ 200 mls/hr IVPB Q8H-IV [facility] Last Admin: 04/27/17 10:35 Dose: 200 mls/hr Insulin Aspart (Novolog Vial Sliding Scale -) 1 vial SQ Q4HPO [facility] PRN Reason: Protocol Last Admin: 04/27/17 10:35 Dose: 5 units Insulin Detemir (Levemir Vial) 50 units SQ BIDI [facility] Last Admin: 04/27/17 06:11 Dose: 50 units Lisinopril (Prinivil) 20 mg PO DAILY [facility] Last Admin: 04/27/17 09:09 Dose: 20 mg Methylprednisolone Sodium Succinate (Solu-Medrol -) 40 mg IVPB Q6H-IV [facility] Last Admin: 04/27/17 08:08 Dose: 40 mg Metoprolol Tartrate (Lopressor -) 25 mg PO DAILY [facility] Last Admin: 04/27/17 09:09 Dose: 25 mg Constitutional: Yes: NAD, Obese Eyes: Yes: Conjunctiva Clear, EOM Intact HENT: Yes: Atraumatic, Normocephalic Neck: Yes: Supple, Trachea Midline Respiratory: Yes: Bilateral Rhonchi, no wheeze Gastrointestinal: Yes: Normal Bowel Sounds, Soft Cardiovascular: Yes: Regular Rate and Rhythm JVD: Yes Carotid Bruit: No PMI: Non-Displaced Heart Sounds: Yes: S1, S2 Edema: Yes Edema: LLE: 1+, RLE: 1+ Laboratory Results - last 24 hr 04/26/17 04/26/17 04/26/17 13:42 17:01 22:05 WBC RBC Hgb Hct MCV MCH MCHC RDW Plt Count MPV Neutrophils % Lymphocytes % Monocytes % Eosinophils % Basophils % ESR Sodium Potassium Chloride Carbon Dioxide Anion Gap BUN Creatinine Creat Clearance w eGFR POC Glucometer [phone] 506 Random Glucose Calcium Total Bilirubin AST ALT Alkaline Phosphatase C-Reactive Protein Total Protein Albumin 04/26/17 04/27/17 04/27/17 22:15 02:53 05:35 WBC 17.0 H RBC 5.34 H Hgb 15.5 H Hct 47.8 H MCV 89.6 MCH 28.9 MCHC 32.3 RDW 17.1 H Plt Count 293 MPV 8.4 Neutrophils % 88.5 H Lymphocytes % 5.2 L D Monocytes % 5.9 D Eosinophils % 0.0 Basophils % 0.4 ESR Sodium Potassium Chloride Carbon Dioxide Anion Gap BUN Creatinine Creat Clearance w eGFR POC Glucometer 381 Random Glucose 548 H* D Calcium Total Bilirubin AST ALT Alkaline Phosphatase C-Reactive Protein Total Protein Albumin 04/27/17 04/27/17 04/27/17 05:35 05:35 05:35 WBC RBC Hgb Hct MCV MCH MCHC RDW Plt Count MPV Neutrophils % Lymphocytes % Monocytes % Eosinophils % Basophils % ESR 13 Sodium 140 Potassium 3.7 Chloride 98 Carbon Dioxide 33 H Anion Gap 9 BUN 25 H D Creatinine 0.7 Creat Clearance w eGFR > 60 POC Glucometer Random Glucose 272 H D Calcium 9.0 Total Bilirubin 0.7 D AST 13 L ALT 26 Alkaline Phosphatase 188 H D C-Reactive Protein 10.7 H Cancelled Total Protein 6.5 Albumin 2.7 L 04/27/17 04/27/17 05:45 10:32 WBC RBC Hgb Hct MCV MCH MCHC RDW Plt Count MPV Neutrophils % Lymphocytes % Monocytes % Eosinophils % Basophils % ESR Sodium Potassium Chloride Carbon Dioxide Anion Gap BUN Creatinine Creat Clearance w eGFR POC Glucometer 234 160 Random Glucose Calcium Total Bilirubin AST ALT Alkaline Phosphatase C-Reactive Protein Total Protein Albumin Problem List - Problems (1) CHF (congestive heart failure) Code(s): I50.9 - HEART FAILURE, UNSPECIFIED Qualifiers: Qualified Code(s): I50.9 - Heart failure, unspecified (2) COPD exacerbation Code(s): J44.1 - CHRONIC OBSTRUCTIVE PULMONARY DISEASE W (ACUTE) EXACERBATION (3) Diabetes Code(s): E11.9 - TYPE 2 DIABETES MELLITUS WITHOUT COMPLICATIONS Qualifiers: Qualified Code(s): E10.65 - Type 1 diabetes mellitus with hyperglycemia (4) Edema Code(s): R60.9 - EDEMA, UNSPECIFIED (5) Hemoptysis Code(s): R04.2 - HEMOPTYSIS (6) Pneumonia Code(s): J18.9 - PNEUMONIA, UNSPECIFIED ORGANISM (7) Mediastinal adenopathy Code(s): R59.0 - LOCALIZED ENLARGED LYMPH NODES (8) Cardiomyopathy Code(s): I42.9 - CARDIOMYOPATHY, UNSPECIFIED IMP EXTENSIVE BILATERAL CONSOLIDATIONS LIKELY PNEUMONIA,?INFLAMMATORY,?MALIGNANT HEMOPTYSIS SECONDARY TO ABOVE CHF NON-ISCHEMIC CARDIOMYOPATHY MEDIASTINAL AND HILAR ADENOPATHY ?REACTIVE,?MALIGNANT,?SARCOID COPD/ASTHMA ERYTHROCYTOSIS DM HTN LIKEY OSAS PLAN BROAD SPECTRUM ANTIBIOTICS PER ID INHALED BRONCHODILATORS O2 STEROIDS CULTURES,AFB SPUTUM CYTOLOGY COLD AGGLUTININS MAY NEED FLEX BRONCHOSCOPY IF NO IMPROVEMENT QUANTIFERON GOLD FOLLOWUP CHEST CT 6-8WKS TO DOCUMENT RESOLUTION OF INFILTRATES SLEEP SCREEN AN OUTPATIENT DR HICKMAN
--- NOTE | 2017-04-27 14:21 | PN ---
Progress Note, Physician Chief Complaint: Cardiology FU Less SOB Telem NSR History of Present Illness: 57 F diabetic with HTN and asthma with history of NICM sp cath 10/2016 showing EF 50% and no coronary obstruction. She was treated for PNA at [facility] but is readmitted here with hempotosis and dyspnea/edema. There is no chest pain, orthopnea, palpitaitons. Has been complaint with medications prior to admission. At baseline has unlimited exercise capacity. Echocardiogram today showed moderate diffuse LV systolic dysfunction. - Current Medication List Current Medications: Active Medications Albuterol Sulfate (Ventolin 0.083% Nebulizer Soln -) 1 amp NEB Q4H PRN PRN Reason: SHORT OF BREATH/WHEEZING Albuterol/Ipratropium (Duoneb -) 1 amp NEB QIDR [facility] Last Admin: 04/27/17 11:32 Dose: 1 amp Furosemide (Lasix Injection -) 40 mg IVPB BIDLASIX [facility] Last Admin: 04/27/17 13:42 Dose: 40 mg Vancomycin HCl 1,000 mg/ (Sodium Chloride) 250 mls @ 166.667 mls/hr IVPB BID [facility] Piperacillin Sod/Tazobactam (Sod 4.5 gm/ Sodium Chloride) 100 mls @ 200 mls/hr IVPB Q8H-IV [facility] Last Admin: 04/27/17 10:35 Dose: 200 mls/hr Insulin Aspart (Novolog Vial Sliding Scale -) 1 vial SQ Q4HPO [facility] PRN Reason: Protocol Last Admin: 04/27/17 10:35 Dose: 5 units Insulin Detemir (Levemir Vial) 50 units SQ BIDI [facility] Last Admin: 04/27/17 06:11 Dose: 50 units Lisinopril (Prinivil) 20 mg PO DAILY [facility] Last Admin: 04/27/17 09:09 Dose: 20 mg Methylprednisolone Sodium Succinate (Solu-Medrol -) 40 mg IVPB Q6H-IV [facility] Last Admin: 04/27/17 08:08 Dose: 40 mg Metoprolol Tartrate (Lopressor -) 25 mg PO DAILY [facility] Last Admin: 04/27/17 09:09 Dose: 25 mg - Objective Vital Signs: Vital Signs Temperature 97.9 F 04/27/17 06:00 Pulse Rate 82 04/27/17 11:31 Respiratory Rate 19 04/27/17 06:00 Blood Pressure 142/84 04/27/17 06:00 O2 Sat by Pulse Oximetry (%) 95 04/27/17 11:31 Constitutional: Yes: Well Nourished, No Distress Eyes: Yes: Conjunctiva Clear, EOM Intact HENT: Yes: Atraumatic, Normocephalic Neck: Yes: Supple, Trachea Midline Cardiovascular: Yes: Regular Rate and Rhythm, JVD Respiratory: Yes: Regular, Rales, Rhonchi, SOB Gastrointestinal: Yes: Normal Bowel Sounds, Soft ...Rectal Exam: Yes: WNL Edema: Yes Edema: LLE: 1+, RLE: 1+ Labs: CBC, BMP 04/27/17 05:35 04/27/17 05:35 INR, PTT INR 1.09 (0.82-1.09) 04/26/17 09:50 Problem List - Problems (1) CHF (congestive heart failure) Code(s): I50.9 - HEART FAILURE, UNSPECIFIED Qualifiers: Congestive heart failure type: unspecified congestive heart failure type Congestive heart failure chronicity: acute on chronic Qualified Code(s ): I50.9 - Heart failure, unspecified (2) Pneumonia Code(s): J18.9 - PNEUMONIA, UNSPECIFIED ORGANISM Assessment/Plan Diabetic 57 yo woman with prior history of NICM (negative cath 10/2016 EF 50%) multilobar PNA and acute on chronic systolic CHF exacerbation. Rec: Continue Lasix 40mg IV BID Still volume up. Repeat BNP in AM
[2017-04-27] MEDS: VANCOMYCIN 1,000 MG in SODIUM CHLORIDE 250 ML IVPB SCH (21:11)
[2017-04-28] MEDS: ALBUTEROL SO4 2.5/IPRATROPIUM 0.5 INH SOL 3 ML VIAL.NEB. NEB SCH ×5 (00:05→23:14)
--- NOTE | 2017-04-28 00:29 | CONSULT ---
Consult Consult Specialty:: endocrine Referred by:: dr.annabi villanueva Reason for Consultation:: diabetes mellitus - History of Present Illness Chief Complaint: high sugars History of Present Illness: 57 y female,pmh diabetes mellitus,htn paty katz dc from [facility] after admission for respiratory illness readmitted with respiratory difficulty cough weakness,wheezing dyspnea,and chest tightness,has had elevated blood sugars,despite insulin doses on iv steroids for copd excarcerbation - History Source History Provided By: Patient - Past Medical History Cardio/Vascular: Yes: HTN, Hyperlipdemia, Other. No: AFIB, CAD Pulmonary: Yes: Asthma, COPD. No: Pulmonary Embolus Gastrointestinal: Yes: GERD. No: Cancer Endocrine: Yes: Diabetes Mellitus - Alcohol/Substance Use Hx Alcohol Use: No - Smoking History Smoking history: Former smoker Have you smoked in the past 12 months: Yes Aproximately how many cigarettes per day: 8 If you are a former smoker, when did you quit?: 1 month ago Home Medications - Allergies Allergies/Adverse Reactions: Allergies Allergy/AdvReac Type Severity Reaction Status Date / Time No Known Allergies Allergy Verified 04/25/17 23:35 - Home Medications Home Medications: Ambulatory Orders Furosemide [Lasix -] 40 mg PO DAILY 04/27/15 Insulin (Levemir) [Levemir Flexpen -] 80 units SQ HS 04/27/15 Albuterol 2.5/Ipratropium 0.5 [Duoneb -] 1 neb NEB Q4H PRN 04/26/17 Amlodipine/Valsartan [Amlodipine-Valsartan 5-160 mg] 1 each PO DAILY 04/26/17 Atorvastatin Ca [Lipitor] 10 mg PO HS 04/26/17 Dapagliflozin Propanediol [Farxiga] 10 mg PO DAILY 04/26/17 Linaclotide [Linzess] 145 mcg PO DAILY 04/26/17 Montelukast Na [Singulair -] 10 mg PO HS 04/26/17 Review of Systems - Review of Systems Constitutional: reports: Lethargy, Weakness Eyes: reports: No Symptoms HENT: reports: No Symptoms Neck: reports: No Symptoms Cardiovascular: reports: No Symptoms, Shortness of Breath Respiratory: reports: Exercise Intolerance, SOB, SOB on Exertion Gastrointestinal: reports: No Symptoms Genitourinary: reports: No Symptoms Breasts: reports: No Symptoms Reported Musculoskeletal: reports: Muscle Cramps, Muscle Weakness Integumentary: reports: No Symptoms Neurological: reports: No Symptoms Physical Exam Vital Signs: Vital Signs Temperature 98.2 F 04/27/17 22:00 Pulse Rate 98 H 04/27/17 22:00 Respiratory Rate 20 04/27/17 22:00 Blood Pressure 158/86 04/27/17 22:00 O2 Sat by Pulse Oximetry (%) 95 04/27/17 21:00 Constitutional: Yes: Anxious Eyes: Yes: EOM Intact HENT: Yes: Normocephalic Neck: Yes: Trachea Midline Cardiovascular: Yes: Tachycardia Respiratory: Yes: Rhonchi, Tachypnea, Wheezes Gastrointestinal: Yes: Normal Bowel Sounds ...Rectal Exam: Yes: Deferred Renal/: Yes: WNL Musculoskeletal: Yes: WNL Extremities: Yes: WNL Edema: No Neurological: Yes: Alert, Oriented Labs: CBC, BMP 04/27/17 05:35 04/27/17 21:45 Problem List - Problems (1) Asthma Code(s): J45.909 - UNSPECIFIED ASTHMA, UNCOMPLICATED Qualifiers: Asthma severity: unspecified severity Asthma complication type: uncomplicated Qualified Code(s): J45.909 - Unspecified asthma, uncomplicated (2) CHF (congestive heart failure) Code(s): I50.9 - HEART FAILURE, UNSPECIFIED Qualifiers: Congestive heart failure type: unspecified congestive heart failure type Congestive heart failure chronicity: acute on chronic Qualified Code(s ): I50.9 - Heart failure, unspecified (3) COPD exacerbation Code(s): J44.1 - CHRONIC OBSTRUCTIVE PULMONARY DISEASE W (ACUTE) EXACERBATION (4) Cardiomyopathy Code(s): I42.9 - CARDIOMYOPATHY, UNSPECIFIED (5) Diabetes Code(s): E11.9 - TYPE 2 DIABETES MELLITUS WITHOUT COMPLICATIONS Qualifiers: Diabetes mellitus type: type 1 Diabetes mellitus complication status: with hyperglycemia Qualified Code(s): E10.65 - Type 1 diabetes mellitus with hyperglycemia (6) Edema Code(s): R60.9 - EDEMA, UNSPECIFIED Assessment/Plan Current Active Problems Asthma (Acute) CHF (congestive heart failure) (Acute) COPD exacerbation (Acute) Cardiomyopathy (Acute) Diabetes (Acute) Edema (Acute) Hemoptysis (Acute) Mediastinal adenopathy (Acute) Pneumonia (Acute) hyperglycemia insulin resistant Abnormal Lab Results 04/27/17 04/27/17 04/27/17 05:35 05:35 21:45 WBC 17.0 H RBC 5.34 H Hgb 15.5 H Hct 47.8 H RDW 17.1 H Neutrophils % 88.5 H Lymphocytes % 5.2 L D Carbon Dioxide 33 H BUN 25 H D Random Glucose 272 H D 469 H* D AST 13 L Alkaline Phosphatase 188 H D C-Reactive Protein 10.7 H Albumin 2.7 L Laboratory Results - last 24 hr 04/27/17 04/27/17 04/27/17 02:53 05:35 05:35 WBC 17.0 H RBC 5.34 H Hgb 15.5 H Hct 47.8 H MCV 89.6 MCH 28.9 MCHC 32.3 RDW 17.1 H Plt Count 293 MPV 8.4 Neutrophils % 88.5 H Lymphocytes % 5.2 L D Monocytes % 5.9 D Eosinophils % 0.0 Basophils % 0.4 ESR Sodium 140 Potassium 3.7 Chloride 98 Carbon Dioxide 33 H Anion Gap 9 BUN 25 H D Creatinine 0.7 Creat Clearance w eGFR > 60 POC Glucometer 381 Random Glucose 272 H D Calcium 9.0 Total Bilirubin 0.7 D AST 13 L ALT 26 Alkaline Phosphatase 188 H D C-Reactive Protein 10.7 H Total Protein 6.5 Albumin 2.7 L 04/27/17 04/27/17 04/27/17 05:35 05:35 05:45 WBC RBC Hgb Hct MCV MCH MCHC RDW Plt Count MPV Neutrophils % Lymphocytes % Monocytes % Eosinophils % Basophils % ESR 13 Sodium Potassium Chloride Carbon Dioxide Anion Gap BUN Creatinine Creat Clearance w eGFR POC Glucometer 234 Random Glucose Calcium Total Bilirubin AST ALT Alkaline Phosphatase C-Reactive Protein Cancelled Total Protein Albumin 04/27/17 04/27/17 04/27/17 10:32 21:01 21:45 WBC RBC Hgb Hct MCV MCH MCHC RDW Plt Count MPV Neutrophils % Lymphocytes % Monocytes % Eosinophils % Basophils % ESR Sodium Potassium Chloride Carbon Dioxide Anion Gap BUN Creatinine Creat Clearance w eGFR POC Glucometer 160 492 Random Glucose 469 H* D Calcium Total Bilirubin AST ALT Alkaline Phosphatase C-Reactive Protein Total Protein Albumin plan: Current Medications Generic Name Dose Route Start Last Admin Trade Name Freq PRN Reason Stop Dose Admin Albuterol Sulfate 1 amp 04/26/17 17:13 Ventolin 0.083% Nebulizer Soln - NEB Q4H PRN SHORT OF BREATH/WHEEZING Albuterol/Ipratropium 1 amp 04/26/17 18:00 04/27/17 18:21 Duoneb - NEB 1 amp QIDR LETA Administration Furosemide 40 mg 04/26/17 06:00 04/27/17 13:42 Lasix Injection - IVPB 40 mg BIDLASIX LETA Administration Vancomycin HCl 1,000 mg/ 250 mls @ 166.667 mls/hr 04/27/17 10:27 04/27/17 21:11 Sodium Chloride IVPB 166.667 mls/hr BID LETA Administration Piperacillin Sod/Tazobactam 100 mls @ 200 mls/hr 04/28/17 02:00 Sod 4.5 gm/ Sodium Chloride IVPB Q8H-IV LETA Insulin Aspart 1 vial 04/28/17 00:22 Novolog Vial Sliding Scale - SQ Q4HPO ON LICENSE OF [facility] Protocol Insulin Detemir 50 units 04/27/17 07:00 04/27/17 17:34 Levemir Vial SQ 50 units BIDI LETA Administration Lisinopril 20 mg 04/26/17 10:00 04/27/17 09:09 Prinivil PO 20 mg DAILY ON LICENSE OF [facility] Administration Methylprednisolone Sodium Succinate 40 mg 04/26/17 21:00 04/27/17 21:10 Solu-Medrol - IVPB 40 mg Q6H-IV LETA Administration Metoprolol Tartrate 25 mg 04/26/17 10:00 04/27/17 09:09 Lopressor - PO 25 mg DAILY LETA Administration ch hba1c continue to taper doses of steroid and insulin once sugars improve Laboratory Tests 04/26/17 05:30 Hemoglobin A1c % 10.7 H
[2017-04-28] MEDS: methylPREDNISolone NA SUCC 40 MG/1 ML VIAL IVPB SCH ×3 (02:00→21:44)
[2017-04-28] MEDS: PIPERACILLIN/TAZOB 4.5 GM 4.5 GM in SODIUM CHLORIDE 100 ML IVPB SCH ×3 (02:00→17:39)
[2017-04-28] MEDS: INSULIN SLIDING SCALE (NOVOLOG) 1 VIAL SQ SCH ×6 (02:07→21:44)
[2017-04-28] MEDS: FUROSEMIDE 40 MG/4 ML INJECTABLE VIAL IVPB SCH ×2 (06:34→14:29)
[2017-04-28] MEDS: INSULIN DETEMIR 100 UNITS/ML MDV SQ SCH ×2 (06:34→17:22)
--- NOTE | 2017-04-28 07:54 | PN ---
Progress Note, Physician History of Present Illness: FEELS BETTER LESS SOB NO CP - Current Medication List Current Medications: Active Medications Albuterol Sulfate (Ventolin 0.083% Nebulizer Soln -) 1 amp NEB Q4H PRN PRN Reason: SHORT OF BREATH/WHEEZING Albuterol/Ipratropium (Duoneb -) 1 amp NEB QIDR [facility] Last Admin: 04/28/17 06:50 Dose: 1 amp Furosemide (Lasix Injection -) 40 mg IVPB BIDLASIX [facility] Last Admin: 04/28/17 06:34 Dose: 40 mg Vancomycin HCl 1,000 mg/ (Sodium Chloride) 250 mls @ 166.667 mls/hr IVPB BID [facility] Last Admin: 04/27/17 21:11 Dose: 166.667 mls/hr Piperacillin Sod/Tazobactam (Sod 4.5 gm/ Sodium Chloride) 100 mls @ 200 mls/hr IVPB Q8H-IV [facility] Last Admin: 04/28/17 02:00 Dose: 200 mls/hr Insulin Aspart (Novolog Vial Sliding Scale -) 1 vial SQ Q4HPO [facility] PRN Reason: Protocol Last Admin: 04/28/17 06:33 Dose: 7 unit Insulin Detemir (Levemir Vial) 50 units SQ BIDI [facility] Last Admin: 04/28/17 06:34 Dose: 50 units Lisinopril (Prinivil) 20 mg PO DAILY [facility] Last Admin: 04/27/17 09:09 Dose: 20 mg Methylprednisolone Sodium Succinate (Solu-Medrol -) 40 mg IVPB BID [facility] Metoprolol Tartrate (Lopressor -) 25 mg PO DAILY [facility] Last Admin: 04/27/17 09:09 Dose: 25 mg - Objective Vital Signs: Vital Signs Temperature 98.2 F 04/27/17 22:00 Pulse Rate 98 H 04/27/17 22:00 Respiratory Rate 20 04/27/17 22:00 Blood Pressure 158/86 04/27/17 22:00 O2 Sat by Pulse Oximetry (%) 95 04/27/17 21:00 Cardiovascular: Yes: S1, S2 Respiratory: Yes: Rhonchi Gastrointestinal: Yes: Normal Bowel Sounds, Soft Labs: CBC, BMP 04/27/17 05:35 04/27/17 21:45 INR, PTT INR 1.09 (0.82-1.09) 04/26/17 09:50 Problem List - Problems (1) COPD exacerbation Assessment/Plan: IV STEROIDS-TAPER IV ABX NEBS PULM CONSULT Code(s): J44.1 - CHRONIC OBSTRUCTIVE PULMONARY DISEASE W (ACUTE) EXACERBATION (2) Hemoptysis Assessment/Plan: MAYBE DUE TO PNA R/O MALIGNANCY PULM/ID ON BOARD ISOLATION AFB GOLD Code(s): R04.2 - HEMOPTYSIS (3) Pneumonia Code(s): J18.9 - PNEUMONIA, UNSPECIFIED ORGANISM (4) CHF (congestive heart failure) Assessment/Plan: IV LASIX ECHO CARDIO Code(s): I50.9 - HEART FAILURE, UNSPECIFIED Qualifiers: Congestive heart failure type: unspecified congestive heart failure type Congestive heart failure chronicity: acute on chronic Qualified Code(s ): I50.9 - Heart failure, unspecified (5) Diabetes Assessment/Plan: INSULIN BGM ENDO Code(s): E11.9 - TYPE 2 DIABETES MELLITUS WITHOUT COMPLICATIONS Qualifiers: Diabetes mellitus type: type 1 Diabetes mellitus complication status: with hyperglycemia Qualified Code(s): E10.65 - Type 1 diabetes mellitus with hyperglycemia (6) Edema Assessment/Plan: LASIX DUPLEX Code(s): R60.9 - EDEMA, UNSPECIFIED
[2017-04-28] MEDS: METOPROLOL TARTRATE 25 MG TABLET (FP) PO SCH (09:36)
[2017-04-28] MEDS: LISINOPRIL 20 MG TABLET (FP) PO SCH (09:36)
[2017-04-28] MEDS: VANCOMYCIN 1,000 MG in SODIUM CHLORIDE 250 ML IVPB SCH ×2 (10:39→21:44)
--- NOTE | 2017-04-28 11:38 | PN ---
Progress Note (short form) - Note Progress Note: no more hemoptysis still with productive cough refused interpretor phone- spoke with her at length via daughter translating via cell phone no history of TBno history of HIV- consents to testing NO chronic steroid use was at [facility] about 3 months ago for asthma, discharged on steroid taper- only takes prednisone for flares currently [facility] at [facility] for the last one month- she is homeless Vital Signs Period Temp Pulse Resp BP Sys/Plasencia Pulse Ox Last 24 Hr 97.0 F-99.2 F 93-98 19-20 137-158/81-88 95 cor-rrr lung bilateral rhonchi abd soft,nt ext no edema CBC, BMP 04/27/17 05:35 04/27/17 21:45 a/p pneumonia with hemoptysis- r/o tb infectious- cover for hcap ?inflammatory- r/o sarcoid r/o neoplasm sputum culture sputum afb quant gold esr/crp sputum cytology sputumfungal culture fungitell/aspergillus galactomannan urinary antigens are negative continue vancomycin and zosyn f/u vanco trough in am erythrocytosis mediastinal adenopathy asthma exacerbation diabetes d/w pulmonary spoke with family as well Problem List - Problems (1) Pneumonia Code(s): J18.9 - PNEUMONIA, UNSPECIFIED ORGANISM (2) Mediastinal adenopathy Code(s): R59.0 - LOCALIZED ENLARGED LYMPH NODES (3) Asthma Code(s): J45.909 - UNSPECIFIED ASTHMA, UNCOMPLICATED Qualifiers: Asthma severity: unspecified severity Asthma complication type: uncomplicated Qualified Code(s): J45.909 - Unspecified asthma, uncomplicated (4) Cardiomyopathy Code(s): I42.9 - CARDIOMYOPATHY, UNSPECIFIED
--- NOTE | 2017-04-28 12:29 | PN ---
Progress Note (short form) - Note Progress Note: PULMONARY AWAKE/ALERT APPEARS IMPROVED VSS/AFEBRILE ANICTERIC DISTANT BREATH SOUNDS S1S2 OBESE DIMINISHED ANKLE EDEMA LABS/MEDS/NOTES/IMAGING/MICRO NOTED SPOKE WITH FAMILY IMP EXTENSIVE BILATERAL CONSOLIDATIONS LIKELY PNEUMONIA,?INFLAMMATORY,?MALIGNANT HEMOPTYSIS SECONDARY TO ABOVE CHF NON-ISCHEMIC CARDIOMYOPATHY MEDIASTINAL AND HILAR ADENOPATHY ?REACTIVE,?MALIGNANT,?SARCOID COPD/ASTHMA ERYTHROCYTOSIS DM HTN LIKEY OSAS PLAN BROAD SPECTRUM ANTIBIOTICS INHALED BRONCHODILATORS O2 STEROID TAPER LASIX CULTURES,AFB SPUTUM CYTOLOGY LEGIONELLA URINARY ANTIGEN COLD AGGLUTININS FLEX BRONCHOSCOPY IF NO IMPROVEMENT MONITOR CBC QUANTIFERON GOLD FOLLOWUP CHEST CT 6-8WKS TO DOCUMENT RESOLUTION OF INFILTRATES Cassandra BUENO MD
[2017-04-28 13:10] LABS: HIV 1 & 2 AB NEGATIVE; HIV 1 AGp24 NEGATIVE
--- NOTE | 2017-04-28 15:54 | PN ---
Progress Note, Physician Chief Complaint: Cardiology FU Less SOB Still edema History of Present Illness: 57 F diabetic with HTN and asthma with history of NICM sp cath 10/2016 showing EF 50% and no coronary obstruction. She was treated for PNA at [facility] but is readmitted here with hempotosis and dyspnea/edema. There is no chest pain, orthopnea, palpitaitons. Has been complaint with medications prior to admission. At baseline has unlimited exercise capacity. Echocardiogram here showed moderate diffuse LV systolic dysfunction. - Current Medication List Current Medications: Active Medications Albuterol Sulfate (Ventolin 0.083% Nebulizer Soln -) 1 amp NEB Q4H PRN PRN Reason: SHORT OF BREATH/WHEEZING Albuterol/Ipratropium (Duoneb -) 1 amp NEB QIDR [facility] Last Admin: 04/28/17 12:04 Dose: 1 amp Furosemide (Lasix Injection -) 40 mg IVPB BIDLASIX [facility] Last Admin: 04/28/17 14:29 Dose: 40 mg Vancomycin HCl 1,000 mg/ (Sodium Chloride) 250 mls @ 166.667 mls/hr IVPB BID [facility] Last Admin: 04/28/17 10:39 Dose: 166.667 mls/hr Piperacillin Sod/Tazobactam (Sod 4.5 gm/ Sodium Chloride) 100 mls @ 200 mls/hr IVPB Q8H-IV [facility] Last Admin: 04/28/17 09:36 Dose: 200 mls/hr Insulin Aspart (Novolog Vial Sliding Scale -) 1 vial SQ Q4HPO [facility] PRN Reason: Protocol Last Admin: 04/28/17 14:33 Dose: 5 unit Insulin Detemir (Levemir Vial) 50 units SQ BIDI [facility] Last Admin: 04/28/17 06:34 Dose: 50 units Lisinopril (Prinivil) 20 mg PO DAILY [facility] Last Admin: 04/28/17 09:36 Dose: 20 mg Methylprednisolone Sodium Succinate (Solu-Medrol -) 40 mg IVPB BID [facility] Last Admin: 04/28/17 09:36 Dose: 40 mg Metoprolol Tartrate (Lopressor -) 25 mg PO DAILY [facility] Last Admin: 04/28/17 09:36 Dose: 25 mg - Objective Vital Signs: Vital Signs Temperature 98.1 F 04/28/17 14:42 Pulse Rate 87 04/28/17 14:42 Respiratory Rate 20 04/28/17 14:42 Blood Pressure 150/106 04/28/17 14:42 O2 Sat by Pulse Oximetry (%) 97 04/28/17 12:09 Constitutional: Yes: Well Nourished, No Distress Eyes: Yes: Conjunctiva Clear HENT: Yes: Atraumatic, Normocephalic Neck: Yes: Supple, Trachea Midline Cardiovascular: Yes: Regular Rate and Rhythm, JVD Respiratory: Yes: Regular, Rales, Rhonchi Gastrointestinal: Yes: Normal Bowel Sounds Edema: Yes Labs: CBC, BMP 04/27/17 05:35 04/27/17 21:45 INR, PTT INR 1.09 (0.82-1.09) 04/26/17 09:50 Laboratory Tests 04/26/17 04/28/17 02:10 06:30 B-Natriuretic Peptide 1373.87 H 1762.09 H Problem List - Problems (1) CHF (congestive heart failure) Code(s): I50.9 - HEART FAILURE, UNSPECIFIED Qualifiers: Congestive heart failure type: unspecified congestive heart failure type Congestive heart failure chronicity: acute on chronic Qualified Code(s ): I50.9 - Heart failure, unspecified (2) Pneumonia Code(s): J18.9 - PNEUMONIA, UNSPECIFIED ORGANISM Assessment/Plan Diabetic 57 yo woman with prior history of NICM (negative cath 10/2016 EF 50%) multilobar PNA and acute on chronic systolic CHF exacerbation. Rec: Reduce Lasix 40mg IV qd Still volume up. Add Aldactone 25mg qd. Monitor Electrolytes.
[2017-04-28] MEDS: SPIRONOLACTONE 25 MG TABLET (FP) PO SCH (17:19)
[2017-04-29] MEDS: INSULIN SLIDING SCALE (NOVOLOG) 1 VIAL SQ SCH ×6 (03:09→21:46)
[2017-04-29] MEDS: PIPERACILLIN/TAZOB 4.5 GM 4.5 GM in SODIUM CHLORIDE 100 ML IVPB SCH ×3 (03:10→17:33)
[2017-04-29] MEDS: ALBUTEROL SO4 2.5/IPRATROPIUM 0.5 INH SOL 3 ML VIAL.NEB. NEB SCH ×4 (05:52→23:17)
[2017-04-29] MEDS: INSULIN DETEMIR 100 UNITS/ML MDV SQ SCH ×2 (06:25→17:32)
[2017-04-29 07:39] LABS: BASOPHIL 0.4 % (0-2.0); MCH 28.8 pg (25.7-33.7); MCHC 32.1 g/dl (32.0-36.0); MEAN CELL VOLUME 89.8 fl (80-96); NEUTROPHILS 89.1 % (42.8-82.8); PLATELET COUNT 331 K/MM3 (134-434); RDW 17.1 % (11.6-15.6); WHITE BLOOD COUNT 16.7 K/mm3 (4.0-10.0)
[2017-04-29 07:55] LABS: ALK PHOS 178 U/L (45-117); ANION GAP 6 (8-16); BILIRUBIN,TOTAL 0.6 mg/dL (0.2-1.0); CO2 33 mmol/L (21-32); CREATININE 0.8 mg/dL (0.55-1.02); GLUCOSE,RANDOM 168 mg/dL (74-106); SGOT/AST 34 U/L (15-37); SGPT/ALT 44 U/L (12-78)
--- NOTE | 2017-04-29 09:06 | PN ---
Progress Note, Physician Chief Complaint: AWAKE IN ISOLATION - Current Medication List Current Medications: Active Medications Albuterol Sulfate (Ventolin 0.083% Nebulizer Soln -) 1 amp NEB Q4H PRN PRN Reason: SHORT OF BREATH/WHEEZING Albuterol/Ipratropium (Duoneb -) 1 amp NEB QIDR [facility] Last Admin: 04/29/17 05:52 Dose: 1 amp Furosemide (Lasix Injection -) 40 mg IVPB DAILY [facility] Vancomycin HCl 1,000 mg/ (Sodium Chloride) 250 mls @ 166.667 mls/hr IVPB BID [facility] Last Admin: 04/28/17 21:44 Dose: 166.667 mls/hr Piperacillin Sod/Tazobactam (Sod 4.5 gm/ Sodium Chloride) 100 mls @ 200 mls/hr IVPB Q8H-IV [facility] Last Admin: 04/29/17 03:10 Dose: 200 mls/hr Insulin Aspart (Novolog Vial Sliding Scale -) 1 vial SQ Q4HPO [facility] PRN Reason: Protocol Last Admin: 04/29/17 06:25 Dose: 5 unit Insulin Detemir (Levemir Vial) 50 units SQ BIDI [facility] Last Admin: 04/29/17 06:25 Dose: 50 units Lisinopril (Prinivil) 20 mg PO DAILY [facility] Last Admin: 04/28/17 09:36 Dose: 20 mg Methylprednisolone Sodium Succinate (Solu-Medrol -) 40 mg IVPB BID [facility] Last Admin: 04/28/17 21:44 Dose: 40 mg Metoprolol Tartrate (Lopressor -) 25 mg PO DAILY [facility] Last Admin: 04/28/17 09:36 Dose: 25 mg Spironolactone (Aldactone -) 25 mg PO DAILY [facility] Last Admin: 04/28/17 17:19 Dose: 25 mg - Objective Vital Signs: Vital Signs Temperature 98.7 F 04/29/17 08:40 Pulse Rate 111 H 04/29/17 08:40 Respiratory Rate 20 04/29/17 08:40 Blood Pressure 150/90 04/29/17 08:40 O2 Sat by Pulse Oximetry (%) 97 04/28/17 20:07 Constitutional: Yes: No Distress Eyes: Yes: WNL HENT: Yes: WNL Neck: Yes: WNL Cardiovascular: Yes: WNL Respiratory: Yes: WNL Gastrointestinal: Yes: WNL Genitourinary: Yes: WNL Musculoskeletal: Yes: WNL Edema: No Peripheral Pulses WNL: Yes Integumentary: Yes: WNL Wound/Incision: Yes: Clean/Dry Neurological: Yes: WNL ...Motor Strength: WNL Psychiatric: Yes: WNL Labs: CBC, BMP 04/29/17 06:30 04/29/17 06:30 INR, PTT INR 1.09 (0.82-1.09) 04/26/17 09:50 Problem List - Problems (1) Asthma Code(s): J45.909 - UNSPECIFIED ASTHMA, UNCOMPLICATED Qualifiers: Asthma severity: unspecified severity Asthma complication type: uncomplicated Qualified Code(s): J45.909 - Unspecified asthma, uncomplicated (2) COPD exacerbation Code(s): J44.1 - CHRONIC OBSTRUCTIVE PULMONARY DISEASE W (ACUTE) EXACERBATION (3) Diabetes Code(s): E11.9 - TYPE 2 DIABETES MELLITUS WITHOUT COMPLICATIONS Qualifiers: Diabetes mellitus type: type 1 Diabetes mellitus complication status: with hyperglycemia Qualified Code(s): E10.65 - Type 1 diabetes mellitus with hyperglycemia (4) Hemoptysis Code(s): R04.2 - HEMOPTYSIS Assessment/Plan AWAITING TB STUDIES BGM CONTROL' NEBS OOB TO CHAIR
--- NOTE | 2017-04-29 10:20 | PN ---
Progress Note (short form) - Note Progress Note: Feels OK today. No francisco hemoptysis. Intake & Output 04/26/17 04/27/17 04/28/17 04/29/17 23:59 23:59 23:59 23:59 Intake Total 310 3210 1440 Balance 310 3210 1440 Weight 217 lb 220 lb 222 lb 6 oz Last Vital Signs Temp Pulse Resp BP Pulse Ox 98.7 F 111 H 20 150/90 97 04/29/17 08:40 04/29/17 08:40 04/29/17 08:40 04/29/17 08:40 04/28/17 20:07 Active Medications Albuterol Sulfate (Ventolin 0.083% Nebulizer Soln -) 1 amp NEB Q4H PRN PRN Reason: SHORT OF BREATH/WHEEZING Albuterol/Ipratropium (Duoneb -) 1 amp NEB QIDR [facility] Last Admin: 04/29/17 05:52 Dose: 1 amp Furosemide (Lasix Injection -) 40 mg IVPB DAILY [facility] Vancomycin HCl 1,000 mg/ (Sodium Chloride) 250 mls @ 166.667 mls/hr IVPB BID [facility] Last Admin: 04/28/17 21:44 Dose: 166.667 mls/hr Piperacillin Sod/Tazobactam (Sod 4.5 gm/ Sodium Chloride) 100 mls @ 200 mls/hr IVPB Q8H-IV [facility] Last Admin: 04/29/17 03:10 Dose: 200 mls/hr Insulin Aspart (Novolog Vial Sliding Scale -) 1 vial SQ Q4HPO [facility] PRN Reason: Protocol Last Admin: 04/29/17 06:25 Dose: 5 unit Insulin Detemir (Levemir Vial) 50 units SQ BIDI [facility] Last Admin: 04/29/17 06:25 Dose: 50 units Lisinopril (Prinivil) 20 mg PO DAILY [facility] Last Admin: 04/28/17 09:36 Dose: 20 mg Methylprednisolone Sodium Succinate (Solu-Medrol -) 40 mg IVPB BID [facility] Last Admin: 04/28/17 21:44 Dose: 40 mg Metoprolol Tartrate (Lopressor -) 25 mg PO DAILY [facility] Last Admin: 04/28/17 09:36 Dose: 25 mg Spironolactone (Aldactone -) 25 mg PO DAILY [facility] Last Admin: 04/28/17 17:19 Dose: 25 mg Constitutional: Yes: NAD, Obese Eyes: Yes: Conjunctiva Clear, EOM Intact HENT: Yes: Atraumatic, Normocephalic Neck: Yes: Supple, Trachea Midline Respiratory: Yes: Bilateral Rhonchi, no wheeze Gastrointestinal: Yes: Normal Bowel Sounds, Soft Cardiovascular: Yes: Regular Rate and Rhythm JVD: Yes Carotid Bruit: No PMI: Non-Displaced Heart Sounds: Yes: S1, S2 Edema: Yes Edema: LLE: 1+, RLE: 1+ Laboratory Results - last 24 hr 04/28/17 04/28/17 04/28/17 11:02 12:00 12:19 WBC RBC Hgb Hct MCV MCH MCHC RDW Plt Count MPV Neutrophils % Lymphocytes % Monocytes % Eosinophils % Basophils % Sodium Potassium Chloride Carbon Dioxide Anion Gap BUN Creatinine Creat Clearance w eGFR POC Glucometer 145 138 Random Glucose Calcium Total Bilirubin AST ALT Alkaline Phosphatase Total Protein Albumin HIV 1&2 Antibody Screen Negative HIV P24 Antigen Negative 04/28/17 04/28/17 04/28/17 14:32 17:21 21:42 WBC RBC Hgb Hct MCV MCH MCHC RDW Plt Count MPV Neutrophils % Lymphocytes % Monocytes % Eosinophils % Basophils % Sodium Potassium Chloride Carbon Dioxide Anion Gap BUN Creatinine Creat Clearance w eGFR POC Glucometer 195 141 194 Random Glucose Calcium Total Bilirubin AST ALT Alkaline Phosphatase Total Protein Albumin HIV 1&2 Antibody Screen HIV P24 Antigen 04/29/17 04/29/17 04/29/17 03:01 06:24 06:30 WBC 16.7 H RBC 5.50 H Hgb 15.9 H Hct 49.4 H MCV 89.8 MCH 28.8 MCHC 32.1 RDW 17.1 H Plt Count 331 MPV 8.0 Neutrophils % 89.1 H Lymphocytes % 5.6 L Monocytes % 4.9 Eosinophils % 0.0 Basophils % 0.4 Sodium Potassium Chloride Carbon Dioxide Anion Gap BUN Creatinine Creat Clearance w eGFR POC Glucometer 312 172 Random Glucose Calcium Total Bilirubin AST ALT Alkaline Phosphatase Total Protein Albumin HIV 1&2 Antibody Screen HIV P24 Antigen 04/29/17 06:30 WBC RBC Hgb Hct MCV MCH MCHC RDW Plt Count MPV Neutrophils % Lymphocytes % Monocytes % Eosinophils % Basophils % Sodium 139 Potassium 3.8 Chloride 100 Carbon Dioxide 33 H Anion Gap 6 L BUN 26 H Creatinine 0.8 Creat Clearance w eGFR > 60 POC Glucometer Random Glucose 168 H D Calcium 9.0 Total Bilirubin 0.6 AST 34 D ALT 44 D Alkaline Phosphatase 178 H Total Protein 7.0 Albumin 3.0 L HIV 1&2 Antibody Screen HIV P24 Antigen Problem List - Problems (1) CHF (congestive heart failure) Code(s): I50.9 - HEART FAILURE, UNSPECIFIED Qualifiers: Qualified Code(s): I50.9 - Heart failure, unspecified (2) COPD exacerbation Code(s): J44.1 - CHRONIC OBSTRUCTIVE PULMONARY DISEASE W (ACUTE) EXACERBATION (3) Diabetes Code(s): E11.9 - TYPE 2 DIABETES MELLITUS WITHOUT COMPLICATIONS Qualifiers: Qualified Code(s): E10.65 - Type 1 diabetes mellitus with hyperglycemia (4) Edema Code(s): R60.9 - EDEMA, UNSPECIFIED (5) Hemoptysis Code(s): R04.2 - HEMOPTYSIS (6) Pneumonia Code(s): J18.9 - PNEUMONIA, UNSPECIFIED ORGANISM (7) Mediastinal adenopathy Code(s): R59.0 - LOCALIZED ENLARGED LYMPH NODES (8) Cardiomyopathy Code(s): I42.9 - CARDIOMYOPATHY, UNSPECIFIED IMP EXTENSIVE BILATERAL CONSOLIDATIONS LIKELY PNEUMONIA,?INFLAMMATORY,?MALIGNANT HEMOPTYSIS SECONDARY TO ABOVE CHF NON-ISCHEMIC CARDIOMYOPATHY MEDIASTINAL AND HILAR ADENOPATHY ?REACTIVE,?MALIGNANT,?SARCOID COPD/ASTHMA ERYTHROCYTOSIS DM HTN LIKEY OSAS PLAN ANTIBIOTICS PER ID INHALED BRONCHODILATORS O2 STEROIDS FOLLOW AFB CULTURES, ONLY 1 (-) NOTED SO FAR SPUTUM CYTOLOGY MAY NEED FLEX BRONCHOSCOPY FOLLOWUP CHEST CT 6-8WKS TO DOCUMENT RESOLUTION OF INFILTRATES SLEEP SCREEN AN OUTPATIENT DR HICKMAN
[2017-04-29] MEDS ORDERED: PT OWN MED DRAWER 7, Y5N ONE ×7 (10:51→19:16)
[2017-04-29] MEDS ORDERED: INSULIN (NOVOLOG) ASPART 100 UNITS/ML 10ML VIAL ONE (10:52)
[2017-04-29] MEDS: methylPREDNISolone NA SUCC 40 MG/1 ML VIAL IVPB SCH ×2 (11:00→21:38)
[2017-04-29] MEDS: FUROSEMIDE 40 MG/4 ML INJECTABLE VIAL IVPB SCH (11:00)
[2017-04-29] MEDS: METOPROLOL TARTRATE 25 MG TABLET (FP) PO SCH (11:01)
[2017-04-29] MEDS: SPIRONOLACTONE 25 MG TABLET (FP) PO SCH (11:01)
[2017-04-29] MEDS: LISINOPRIL 20 MG TABLET (FP) PO SCH (11:02)
--- NOTE | 2017-04-29 13:15 | PN ---
Progress Note (short form) - Note Progress Note: no more hemoptysis still with productive cough but less Vital Signs Period Temp Pulse Resp BP Sys/Plasencia Pulse Ox Last 24 Hr 97.6 F-99.3 F 87-111 16-20 150-156/87-106 93-97 cor-rrr lungs bilateral rhonchi abd soft,nt ext no edema CBC, BMP 04/29/17 06:30 04/29/17 06:30 Microbiology 04/26/17 09:16 Blood - Peripheral Venous Blood Culture - Preliminary NO GROWTH OBTAINED AFTER 72 HOURS, INCUBATION TO CONTINUE FOR 2 DAYS. 04/26/17 09:16 Blood - Peripheral Venous Blood Culture - Preliminary NO GROWTH OBTAINED AFTER 72 HOURS, INCUBATION TO CONTINUE FOR 2 DAYS. 04/28/17 06:00 Sputum - Expectorated AFB Smear Concentration - Preliminary 04/28/17 06:00 Sputum - Expectorated Direct Acid Fast Bacilli Smear - Final 04/28/17 06:00 Sputum - Expectorated Mycobacterial Culture - Preliminary 04/26/17 21:00 Sputum - Expectorated Gram Stain - Final 04/26/17 21:00 Sputum - Expectorated Sputum Culture - Preliminary NORMAL RESPIRATORY ZAHIRA 04/26/17 21:00 Urine For Antigen Detection Legionella Antigen - Final 04/26/17 21:00 Urine For Antigen Detection Streptococcus pneumoniae Antigen (M - Final 04/26/17 20:00 Nasopharyngeal Swab Influenza Types A,B Antigen (CORNELIO) - Preliminary 04/26/17 20:00 Nasopharyngeal Swab - Preliminary Laboratory Tests 04/27/17 04/27/17 04/28/17 05:35 05:35 12:00 ESR 13 C-Reactive Protein 10.7 H HIV 1&2 Antibody Screen Negative HIV P24 Antigen Negative a/p pneumonia with hemoptysis- r/o tb infectious- cover for hcap ?inflammatory- r/o sarcoid r/o neoplasm sputum culture sputum afb quant gold esr/crp sputum cytology sputumfungal culture fungitell/aspergillus galactomannan urinary antigens are negative d/c vanco/zosyn sputum culture normal zahira d/c vancomycin collection sputum afb filled out forms for sputum cytology erythrocytosis mediastinal adenopathy asthma exacerbation diabetes Problem List - Problems (1) Pneumonia Code(s): J18.9 - PNEUMONIA, UNSPECIFIED ORGANISM (2) Mediastinal adenopathy Code(s): R59.0 - LOCALIZED ENLARGED LYMPH NODES (3) Asthma Code(s): J45.909 - UNSPECIFIED ASTHMA, UNCOMPLICATED Qualifiers: Asthma severity: unspecified severity Asthma complication type: uncomplicated Qualified Code(s): J45.909 - Unspecified asthma, uncomplicated (4) Cardiomyopathy Code(s): I42.9 - CARDIOMYOPATHY, UNSPECIFIED
[2017-04-29] MEDS: VANCOMYCIN 1,000 MG in SODIUM CHLORIDE 250 ML IVPB SCH (13:36)
--- NOTE | 2017-04-29 17:04 | PN ---
Progress Note, Physician Chief Complaint: Presently resting comfortably History of Present Illness: 57 F diabetic with HTN and asthma with history of NICM sp cath 10/2016 showing EF 50% and no coronary obstruction. She was treated for PNA at [facility] but is readmitted here with hempotosis and dyspnea/edema. There is no chest pain, orthopnea, palpitaitons. Has been complaint with medications prior to admission. At baseline has unlimited exercise capacity. Echocardiogram here showed moderate diffuse LV systolic dysfunction. 04/29/17 In no distress. - Current Medication List Current Medications: Active Medications Albuterol Sulfate (Ventolin 0.083% Nebulizer Soln -) 1 amp NEB Q4H PRN PRN Reason: SHORT OF BREATH/WHEEZING Albuterol/Ipratropium (Duoneb -) 1 amp NEB QIDR [facility] Last Admin: 04/29/17 11:35 Dose: 1 amp Furosemide (Lasix Injection -) 40 mg IVPB DAILY [facility] Last Admin: 04/29/17 11:00 Dose: 40 mg Piperacillin Sod/Tazobactam (Sod 4.5 gm/ Sodium Chloride) 100 mls @ 200 mls/hr IVPB Q8H-IV [facility] Last Admin: 04/29/17 11:02 Dose: 200 mls/hr Doxycycline Hyclate 100 mg/ (Dextrose) 100 mls @ 100 mls/hr IVPB BID [facility] Insulin Aspart (Novolog Vial Sliding Scale -) 1 vial SQ Q4HPO [facility] PRN Reason: Protocol Last Admin: 04/29/17 14:09 Dose: 5 unit Insulin Detemir (Levemir Vial) 50 units SQ BIDI [facility] Last Admin: 04/29/17 06:25 Dose: 50 units Lisinopril (Prinivil) 20 mg PO DAILY [facility] Last Admin: 04/29/17 11:02 Dose: 20 mg Methylprednisolone Sodium Succinate (Solu-Medrol -) 40 mg IVPB BID [facility] Last Admin: 04/29/17 11:00 Dose: 40 mg Metoprolol Tartrate (Lopressor -) 25 mg PO DAILY [facility] Last Admin: 04/29/17 11:01 Dose: 25 mg Spironolactone (Aldactone -) 25 mg PO DAILY [facility] Last Admin: 04/29/17 11:01 Dose: 25 mg - Objective Vital Signs: Vital Signs Temperature 98.0 F 04/29/17 14:15 Pulse Rate 88 04/29/17 14:15 Respiratory Rate 20 04/29/17 14:15 Blood Pressure 120/80 04/29/17 14:15 O2 Sat by Pulse Oximetry (%) 93 L 04/29/17 11:35 Constitutional: Yes: No Distress Neck: Yes: WNL Cardiovascular: Yes: Regular Rate and Rhythm, Other (NL S1S2, No MRHG) Respiratory: Yes: Other (Scattered Rhonchi) Gastrointestinal: Yes: Soft Extremities: Yes: Other (Positive edema) Integumentary: Yes: WNL Neurological: Yes: Oriented (Grossly non focal) Labs: CBC, BMP 04/29/17 06:30 04/29/17 06:30 INR, PTT INR 1.09 (0.82-1.09) 04/26/17 09:50 Assessment/Plan [facility] *LIVE* Assessment/Plan Diabetic 57 yo woman with prior history of NICM (negative cath 10/2016 EF 50%) multilobar PNA and acute on chronic systolic CHF exacerbation. Rec: Continue Lasix 40mg IVSS daily Daily Lytes/Wt's/I's/O's Continue Aldactone 25mg PO daily.
[2017-04-29] MEDS ORDERED: METOPROLOL TARTRATE 50 MG TABLET (FP) PO ONE (19:15)
[2017-04-29] MEDS: DOXYCYCLINE INJECTION 100 MG in DEXTROSE 5%-WATER - 100 ML IVPB SCH (21:38)
[2017-04-30] MEDS: PIPERACILLIN/TAZOB 4.5 GM 4.5 GM in SODIUM CHLORIDE 100 ML IVPB SCH ×2 (01:30→10:11)
[2017-04-30] MEDS: INSULIN SLIDING SCALE (NOVOLOG) 1 VIAL SQ SCH ×4 (06:20→22:15)
[2017-04-30] MEDS: INSULIN DETEMIR 100 UNITS/ML MDV SQ SCH ×2 (06:21→17:21)
[2017-04-30] MEDS: ALBUTEROL SO4 2.5/IPRATROPIUM 0.5 INH SOL 3 ML VIAL.NEB. NEB SCH ×4 (06:31→23:48)
[2017-04-30] MEDS ORDERED: PT OWN MED DRAWER 7, Y5N ONE ×2 (09:32→17:11)
[2017-04-30] MEDS: methylPREDNISolone NA SUCC 40 MG/1 ML VIAL IVPB SCH ×2 (10:11→21:54)
[2017-04-30] MEDS: METOPROLOL TARTRATE 25 MG TABLET (FP) PO SCH (10:11)
[2017-04-30] MEDS: SPIRONOLACTONE 25 MG TABLET (FP) PO SCH (10:11)
[2017-04-30] MEDS: FUROSEMIDE 40 MG/4 ML INJECTABLE VIAL IVPB SCH (10:11)
[2017-04-30] MEDS: LISINOPRIL 20 MG TABLET (FP) PO SCH (10:11)
--- NOTE | 2017-04-30 10:24 | PN ---
Progress Note (short form) - Note Progress Note: No acute events overnight. No CP or SOB. No hemoptysis. Intake & Output 04/27/17 04/28/17 04/29/17 04/30/17 23:59 23:59 23:59 23:59 Intake Total 3210 1440 380 100 Balance 3210 1440 380 100 Weight 220 lb 222 lb 6 oz 229 lb Last Vital Signs Temp Pulse Resp BP Pulse Ox 98.2 F 88 20 160/100 93 L 04/30/17 08:24 04/30/17 08:24 04/30/17 08:24 04/30/17 08:24 04/29/17 21:00 Active Medications Albuterol Sulfate (Ventolin 0.083% Nebulizer Soln -) 1 amp NEB Q4H PRN PRN Reason: SHORT OF BREATH/WHEEZING Albuterol/Ipratropium (Duoneb -) 1 amp NEB QIDR [facility] Last Admin: 04/30/17 06:31 Dose: 1 amp Furosemide (Lasix Injection -) 40 mg IVPB DAILY [facility] Last Admin: 04/30/17 10:11 Dose: 40 mg Piperacillin Sod/Tazobactam (Sod 4.5 gm/ Sodium Chloride) 100 mls @ 200 mls/hr IVPB Q8H-IV [facility] Last Admin: 04/30/17 10:11 Dose: 200 mls/hr Doxycycline Hyclate 100 mg/ (Dextrose) 100 mls @ 100 mls/hr IVPB BID [facility] Last Admin: 04/29/17 21:38 Dose: 100 mls/hr Insulin Aspart (Novolog Vial Sliding Scale -) 1 vial SQ ACHS [facility] PRN Reason: Protocol Last Admin: 04/30/17 06:20 Dose: 15 unit Insulin Detemir (Levemir Vial) 50 units SQ BIDI [facility] Last Admin: 04/30/17 06:21 Dose: 50 units Lisinopril (Prinivil) 20 mg PO DAILY [facility] Last Admin: 04/30/17 10:11 Dose: 20 mg Methylprednisolone Sodium Succinate (Solu-Medrol -) 40 mg IVPB BID [facility] Last Admin: 04/30/17 10:11 Dose: 40 mg Metoprolol Tartrate (Lopressor -) 25 mg PO DAILY [facility] Last Admin: 04/30/17 10:11 Dose: 25 mg Spironolactone (Aldactone -) 25 mg PO DAILY [facility] Last Admin: 04/30/17 10:11 Dose: 25 mg Constitutional: Yes: NAD, Obese Eyes: Yes: Conjunctiva Clear, EOM Intact HENT: Yes: Atraumatic, Normocephalic Neck: Yes: Supple, Trachea Midline Respiratory: Yes: Bilateral Rhonchi, no wheeze Gastrointestinal: Yes: Normal Bowel Sounds, Soft Cardiovascular: Yes: Regular Rate and Rhythm JVD: Yes Carotid Bruit: No PMI: Non-Displaced Heart Sounds: Yes: S1, S2 Edema: Yes Edema: LLE: 1+, RLE: 1+ Laboratory Results - last 24 hr 04/29/17 04/29/17 04/29/17 10:57 14:04 17:37 POC Glucometer 204 196 198 04/29/17 04/30/17 21:39 06:02 POC Glucometer 412 423 Problem List - Problems (1) CHF (congestive heart failure) Code(s): I50.9 - HEART FAILURE, UNSPECIFIED Qualifiers: Qualified Code(s): I50.9 - Heart failure, unspecified (2) COPD exacerbation Code(s): J44.1 - CHRONIC OBSTRUCTIVE PULMONARY DISEASE W (ACUTE) EXACERBATION (3) Diabetes Code(s): E11.9 - TYPE 2 DIABETES MELLITUS WITHOUT COMPLICATIONS Qualifiers: Qualified Code(s): E10.65 - Type 1 diabetes mellitus with hyperglycemia (4) Edema Code(s): R60.9 - EDEMA, UNSPECIFIED (5) Hemoptysis Code(s): R04.2 - HEMOPTYSIS (6) Pneumonia Code(s): J18.9 - PNEUMONIA, UNSPECIFIED ORGANISM (7) Mediastinal adenopathy Code(s): R59.0 - LOCALIZED ENLARGED LYMPH NODES (8) Cardiomyopathy Code(s): I42.9 - CARDIOMYOPATHY, UNSPECIFIED IMP EXTENSIVE BILATERAL CONSOLIDATIONS LIKELY PNEUMONIA,?INFLAMMATORY,?MALIGNANT HEMOPTYSIS SECONDARY TO ABOVE CHF NON-ISCHEMIC CARDIOMYOPATHY MEDIASTINAL AND HILAR ADENOPATHY ?REACTIVE,?MALIGNANT,?SARCOID COPD/ASTHMA ERYTHROCYTOSIS DM HTN LIKEY OSAS PLAN ANTIBIOTICS PER ID INHALED BRONCHODILATORS O2 STEROIDS FOLLOW AFB CULTURES, ONLY 1 (-) NOTED SO FAR SPUTUM CYTOLOGY MAY NEED FLEX BRONCHOSCOPY FOLLOWUP CHEST CT 6-8WKS TO DOCUMENT RESOLUTION OF INFILTRATES SLEEP SCREEN AN OUTPATIENT DR HICKMAN
[2017-04-30] MEDS: DOXYCYCLINE INJECTION 100 MG in DEXTROSE 5%-WATER - 100 ML IVPB SCH ×2 (10:52→21:54)
--- NOTE | 2017-04-30 11:34 | PN ---
Progress Note, Physician Chief Complaint: AWAKE , EVENTS REVIEWED BP ELEVATED NO CP - Current Medication List Current Medications: Active Medications Albuterol Sulfate (Ventolin 0.083% Nebulizer Soln -) 1 amp NEB Q4H PRN PRN Reason: SHORT OF BREATH/WHEEZING Albuterol/Ipratropium (Duoneb -) 1 amp NEB QIDR [facility] Last Admin: 04/30/17 06:31 Dose: 1 amp Furosemide (Lasix Injection -) 40 mg IVPB DAILY [facility] Last Admin: 04/30/17 10:11 Dose: 40 mg Piperacillin Sod/Tazobactam (Sod 4.5 gm/ Sodium Chloride) 100 mls @ 200 mls/hr IVPB Q8H-IV [facility] Last Admin: 04/30/17 10:11 Dose: 200 mls/hr Doxycycline Hyclate 100 mg/ (Dextrose) 100 mls @ 100 mls/hr IVPB BID [facility] Last Admin: 04/30/17 10:52 Dose: 100 mls/hr Insulin Aspart (Novolog Vial Sliding Scale -) 1 vial SQ ACHS [facility] PRN Reason: Protocol Last Admin: 04/30/17 06:20 Dose: 15 unit Insulin Detemir (Levemir Vial) 50 units SQ BIDI [facility] Last Admin: 04/30/17 06:21 Dose: 50 units Lisinopril (Prinivil) 20 mg PO DAILY [facility] Last Admin: 04/30/17 10:11 Dose: 20 mg Methylprednisolone Sodium Succinate (Solu-Medrol -) 40 mg IVPB BID [facility] Last Admin: 04/30/17 10:11 Dose: 40 mg Metoprolol Tartrate (Lopressor -) 50 mg PO BID [facility] Spironolactone (Aldactone -) 25 mg PO DAILY [facility] Last Admin: 04/30/17 10:11 Dose: 25 mg - Objective Vital Signs: Vital Signs Temperature 98.2 F 04/30/17 08:24 Pulse Rate 88 04/30/17 08:24 Respiratory Rate 20 04/30/17 08:24 Blood Pressure 160/100 04/30/17 08:24 O2 Sat by Pulse Oximetry (%) 93 L 04/29/17 21:00 Constitutional: Yes: No Distress Eyes: Yes: WNL HENT: Yes: WNL Neck: Yes: WNL Cardiovascular: Yes: WNL Respiratory: Yes: Rhonchi Gastrointestinal: Yes: WNL Genitourinary: Yes: WNL Musculoskeletal: Yes: WNL Extremities: Yes: WNL Edema: No Peripheral Pulses WNL: Yes Integumentary: Yes: WNL Wound/Incision: Yes: Clean/Dry Neurological: Yes: WNL ...Motor Strength: WNL Psychiatric: Yes: WNL Labs: CBC, BMP 04/29/17 06:30 04/29/17 06:30 INR, PTT INR 1.09 (0.82-1.09) 04/26/17 09:50 Problem List - Problems (1) Asthma Code(s): J45.909 - UNSPECIFIED ASTHMA, UNCOMPLICATED Qualifiers: Asthma severity: unspecified severity Asthma complication type: uncomplicated Qualified Code(s): J45.909 - Unspecified asthma, uncomplicated (2) COPD exacerbation Code(s): J44.1 - CHRONIC OBSTRUCTIVE PULMONARY DISEASE W (ACUTE) EXACERBATION (3) Diabetes Code(s): E11.9 - TYPE 2 DIABETES MELLITUS WITHOUT COMPLICATIONS Qualifiers: Diabetes mellitus type: type 1 Diabetes mellitus complication status: with hyperglycemia Qualified Code(s): E10.65 - Type 1 diabetes mellitus with hyperglycemia (4) Hemoptysis Code(s): R04.2 - HEMOPTYSIS Assessment/Plan METOPROLOL INCREASED TO 50MG BID FOR BETTER BP CONTROL NEBS 02 SUPPROT ID/PULM FOLLOW UP
[2017-04-30] MEDS: METOPROLOL TARTRATE 50 MG TABLET (FP) PO SCH ×2 (11:56→21:53)
--- NOTE | 2017-04-30 11:58 | PN ---
Progress Note (short form) - Note Progress Note: no more hemoptysis cough now dry Vital Signs Period Temp Pulse Resp BP Sys/Plasencia Pulse Ox Last 24 Hr 97.8 F-98.2 F 76-112 20-20 120-170/80-101 93 thrush cor-rrr lungs scattered rhonchi abd soft,nt ext no edema CBC, BMP 04/29/17 06:30 04/29/17 06:30 Microbiology 04/28/17 06:00 Sputum - Expectorated AFB Smear Concentration - Final 04/28/17 06:00 Sputum - Expectorated Direct Acid Fast Bacilli Smear - Final 04/28/17 06:00 Sputum - Expectorated Mycobacterial Culture - Preliminary 04/26/17 09:16 Blood - Peripheral Venous Blood Culture - Preliminary NO GROWTH OBTAINED AFTER 96 HOURS, INCUBATION TO CONTINUE FOR 1 DAYS. 04/26/17 09:16 Blood - Peripheral Venous Blood Culture - Preliminary NO GROWTH OBTAINED AFTER 96 HOURS, INCUBATION TO CONTINUE FOR 1 DAYS. 04/30/17 07:00 Sputum - Expectorated ALDAIR Preparation - Preliminary 04/30/17 07:00 Sputum - Expectorated Fungal Culture - Preliminary 04/29/17 10:20 Blood - Peripheral Venous TB Test (QFT) (CORNELIO) - Preliminary 04/26/17 21:00 Sputum - Expectorated Gram Stain - Final 04/26/17 21:00 Sputum - Expectorated Sputum Culture - Final NORMAL RESPIRATORY WILLAM 04/26/17 21:00 Urine For Antigen Detection Legionella Antigen - Final 04/26/17 21:00 Urine For Antigen Detection Streptococcus pneumoniae Antigen (M - Final 04/26/17 20:00 Nasopharyngeal Swab Influenza Types A,B Antigen (CORNELIO) - Preliminary 04/26/17 20:00 Nasopharyngeal Swab - Preliminary Laboratory Tests 04/27/17 04/27/17 04/28/17 05:35 05:35 12:00 ESR 13 C-Reactive Protein 10.7 H HIV 1&2 Antibody Screen Negative HIV P24 Antigen Negative a/p pneumonia with hemoptysis- r/o tb infectious- cover for hcap ?inflammatory- r/o sarcoid r/o neoplasm sputum culture sputum afb quant gold sputum cytology sputumfungal culture fungitell/aspergillus galactomannan urinary antigens are negative rocephin/doxy d/c zosyn- erythrocytosis mediastinal adenopathy asthma exacerbation diabetes Problem List - Problems (1) Pneumonia Code(s): J18.9 - PNEUMONIA, UNSPECIFIED ORGANISM (2) Mediastinal adenopathy Code(s): R59.0 - LOCALIZED ENLARGED LYMPH NODES (3) Asthma Code(s): J45.909 - UNSPECIFIED ASTHMA, UNCOMPLICATED Qualifiers: Asthma severity: unspecified severity Asthma complication type: uncomplicated Qualified Code(s): J45.909 - Unspecified asthma, uncomplicated (4) Cardiomyopathy Code(s): I42.9 - CARDIOMYOPATHY, UNSPECIFIED
[2017-04-30] MEDS ORDERED: cefTRIAXone 2 GM/100 ML BAG (PRE-DOCKED) IVPB SCH (12:00)
[2017-04-30] MEDS ORDERED: DEXTROSE 5%-WATER 100 ML IVPB ONE (14:28)
[2017-04-30] MEDS: CEFTRIAXONE 2 GM in DEXTROSE 5%-WATER 100 ML IVPB SCH (14:39)
[2017-04-30] MEDS: NYSTATIN 500,000 UNITS/5 ML SUSPENSION PO SCH ×2 (14:40→17:18)
[2017-04-30] MEDS ORDERED: INSULIN DETEMIR 100 UNITS/ML MDV SQ ONE ×2 (17:10→18:36)
[2017-04-30] MEDS ORDERED: INSULIN (NOVOLOG) ASPART 100 UNITS/ML 10ML VIAL ONE (20:57)
[2017-05-01] MEDS: NYSTATIN 500,000 UNITS/5 ML SUSPENSION PO SCH ×4 (00:03→17:21)
[2017-05-01] MEDS: INSULIN DETEMIR 100 UNITS/ML MDV SQ SCH ×2 (06:08→17:26)
[2017-05-01] MEDS: INSULIN SLIDING SCALE (NOVOLOG) 1 VIAL SQ SCH ×4 (06:08→22:15)
[2017-05-01] MEDS: ALBUTEROL SO4 2.5/IPRATROPIUM 0.5 INH SOL 3 ML VIAL.NEB. NEB SCH ×3 (06:35→17:55)
--- NOTE | 2017-05-01 08:21 | PN ---
Progress Note, Physician Chief Complaint: ID Marked clinical improvement since admission Couph better no hemoptysis fever SOB Ceftriaxone and Doxycycline day 5 antibiotics - Current Medication List Current Medications: Active Medications Albuterol Sulfate (Ventolin 0.083% Nebulizer Soln -) 1 amp NEB Q4H PRN PRN Reason: SHORT OF BREATH/WHEEZING Albuterol/Ipratropium (Duoneb -) 1 amp NEB QIDR [facility] Last Admin: 05/01/17 06:35 Dose: 1 amp Furosemide (Lasix Injection -) 40 mg IVPB DAILY [facility] Last Admin: 04/30/17 10:11 Dose: 40 mg Doxycycline Hyclate 100 mg/ (Dextrose) 100 mls @ 100 mls/hr IVPB BID [facility] Last Admin: 04/30/17 21:54 Dose: 100 mls/hr Ceftriaxone Sodium 2 gm/ (Dextrose) 100 mls @ 200 mls/hr IVPB DAILY [facility] Last Admin: 04/30/17 14:39 Dose: 200 mls/hr Insulin Aspart (Novolog Vial Sliding Scale -) 1 vial SQ ACHS [facility] PRN Reason: Protocol Last Admin: 05/01/17 06:08 Dose: 8 unit Insulin Detemir (Levemir Vial) 50 units SQ BIDI [facility] Last Admin: 05/01/17 06:08 Dose: 50 units Lisinopril (Prinivil) 20 mg PO DAILY [facility] Last Admin: 04/30/17 10:11 Dose: 20 mg Methylprednisolone Sodium Succinate (Solu-Medrol -) 40 mg IVPB BID [facility] Last Admin: 04/30/17 21:54 Dose: 40 mg Metoprolol Tartrate (Lopressor -) 50 mg PO BID [facility] Last Admin: 04/30/17 21:53 Dose: 50 mg Nystatin (Nystatin Oral Suspension -) 500,000 units PO Q6HPO [facility] Last Admin: 05/01/17 05:38 Dose: 500,000 units Spironolactone (Aldactone -) 25 mg PO DAILY [facility] Last Admin: 04/30/17 10:11 Dose: 25 mg - Objective Vital Signs: Vital Signs Temperature 97.2 F L 05/01/17 06:35 Pulse Rate 78 05/01/17 06:35 Respiratory Rate 20 05/01/17 06:35 Blood Pressure 149/99 05/01/17 06:35 O2 Sat by Pulse Oximetry (%) 93 L 04/29/17 21:00 Constitutional: Yes: No Distress HENT: Yes: WNL, Atraumatic Neck: Yes: WNL, Supple Respiratory: Yes: WNL, Regular, CTA Bilaterally, Wheezes. No: Rales, Rhonchi Gastrointestinal: Yes: WNL, Normal Bowel Sounds, Soft. No: Tenderness, Tenderness, Epigastrium, Tenderness, Rebound Extremities: No: Calf Tenderness, Cold, Cool, Cyanosis Edema: No Labs: CBC, BMP 04/29/17 06:30 04/29/17 06:30 INR, PTT INR 1.09 (0.82-1.09) 04/26/17 09:50 Assessment/Plan Microbiology 04/29/17 11:00 Sputum - Expectorated Direct Acid Fast Bacilli Smear - Final 04/28/17 06:00 Sputum - Expectorated AFB Smear Concentration - Final 04/28/17 06:00 Sputum - Expectorated Direct Acid Fast Bacilli Smear - Final 04/26/17 21:00 Sputum - Expectorated Gram Stain - Final 04/26/17 21:00 Sputum - Expectorated Sputum Culture - Final NORMAL RESPIRATORY WILLAM 04/28/17 06:00 Sputum - Expectorated Mycobacterial Culture - Preliminary 04/26/17 20:00 Nasopharyngeal Swab Influenza Types A,B Antigen (CORNELIO) - Preliminary 04/26/17 20:00 Nasopharyngeal Swab - Preliminary 04/26/17 09:16 Blood - Peripheral Venous Blood Culture - Preliminary NO GROWTH OBTAINED AFTER 96 HOURS, INCUBATION TO CONTINUE FOR 1 DAYS. 04/26/17 09:16 Blood - Peripheral Venous Blood Culture - Preliminary NO GROWTH OBTAINED AFTER 96 HOURS, INCUBATION TO CONTINUE FOR 1 DAYS. Laboratory Tests 04/27/17 04/28/17 04/29/17 05:35 12:00 06:30 WBC 16.7 H Hgb 15.9 H Hct 49.4 H Plt Count 331 ESR 13 BUN Creatinine AST ALT Alkaline Phosphatase Total Protein Albumin HIV 1&2 Antibody Screen Negative 04/29/17 06:30 WBC Hgb Hct Plt Count ESR BUN 26 H Creatinine 0.8 AST 34 D ALT 44 D Alkaline Phosphatase 178 H Total Protein 7.0 Albumin 3.0 L HIV 1&2 Antibody Screen Assessment Asthma exacerbation with underlying PNA HPTN DIABETES Hemoptysis resolved Alk phos elevation ? fatty liver Plan Complete 7 days treatment Doxycyline can be changed to oral TB collection in progress though given clinical improvement this seems less likely Son[facility] liver Queenie Jerome MD
[2017-05-01] MEDS ORDERED: PT OWN MED DRAWER 7, Y5N ONE (10:00)
[2017-05-01] MEDS ORDERED: DEXTROSE 5%-WATER 100 ML IVPB ONE (10:01)
[2017-05-01] MEDS: DOXYCYCLINE HYCLATE 100 MG CAPSULE PO SCH ×2 (10:14→17:21)
[2017-05-01] MEDS: LISINOPRIL 20 MG TABLET (FP) PO SCH (10:14)
[2017-05-01] MEDS: FUROSEMIDE 40 MG/4 ML INJECTABLE VIAL IVPB SCH (10:14)
[2017-05-01] MEDS: SPIRONOLACTONE 25 MG TABLET (FP) PO SCH (10:14)
[2017-05-01] MEDS: METOPROLOL TARTRATE 50 MG TABLET (FP) PO SCH ×2 (10:14→22:13)
[2017-05-01] MEDS: CEFTRIAXONE 2 GM in DEXTROSE 5%-WATER 100 ML IVPB SCH (10:15)
[2017-05-01] MEDS: methylPREDNISolone NA SUCC 40 MG/1 ML VIAL IVPB SCH ×2 (10:17→22:13)
--- NOTE | 2017-05-01 10:24 | PN ---
Progress Note (short form) - Note Progress Note: PULMONARY Feels better. Denies hemoptysis. +cough with yellow sputum. No fevers or chills. Last Vital Signs Temp Pulse Resp BP Pulse Ox 97.2 F L 78 20 149/99 93 L 05/01/17 06:35 05/01/17 06:35 05/01/17 06:35 05/01/17 06:35 04/29/17 21:00 Gen: NAD in chair Heart: RRR Lung: decreased breath sounds at the bases Abd: soft, nontender Ext: no edema CBC, BMP 04/29/17 06:30 04/29/17 06:30 Active Medications Albuterol Sulfate (Ventolin 0.083% Nebulizer Soln -) 1 amp NEB Q4H PRN PRN Reason: SHORT OF BREATH/WHEEZING Albuterol/Ipratropium (Duoneb -) 1 amp NEB QIDR [facility] Last Admin: 05/01/17 06:35 Dose: 1 amp Doxycycline Hyclate (Vibramycin -) 100 mg PO BID@1000,1800 [facility] Last Admin: 05/01/17 10:14 Dose: 100 mg Furosemide (Lasix Injection -) 40 mg IVPB DAILY [facility] Last Admin: 05/01/17 10:14 Dose: 40 mg Ceftriaxone Sodium 2 gm/ (Dextrose) 100 mls @ 200 mls/hr IVPB DAILY [facility] Last Admin: 05/01/17 10:15 Dose: 200 mls/hr Insulin Aspart (Novolog Vial Sliding Scale -) 1 vial SQ ACHS [facility] PRN Reason: Protocol Last Admin: 05/01/17 06:08 Dose: 8 unit Insulin Detemir (Levemir Vial) 50 units SQ BIDI [facility] Last Admin: 05/01/17 06:08 Dose: 50 units Lisinopril (Prinivil) 20 mg PO DAILY [facility] Last Admin: 05/01/17 10:14 Dose: 20 mg Methylprednisolone Sodium Succinate (Solu-Medrol -) 40 mg IVPB BID [facility] Last Admin: 05/01/17 10:17 Dose: 40 mg Metoprolol Tartrate (Lopressor -) 50 mg PO BID [facility] Last Admin: 05/01/17 10:14 Dose: 50 mg Nystatin (Nystatin Oral Suspension -) 500,000 units PO Q6HPO [facility] Last Admin: 09/18/17 05:38 Dose: 500,000 units Spironolactone (Aldactone -) 25 mg PO DAILY [facility] Last Admin: 05/01/17 10:14 Dose: 25 mg A/P Multilobar Pneumonia Hemoptysis resolved LV Systolic Dysfunction HTN Acute Asthma Exacerbation r/o RICKY - continue antibiotics per ID - inhaled bronchodilators - can change steroids to PO prednisone 40mg daily in AM - glucose control while on systemic steroids - DVT prophylaxis - will need outpt f/u of chest imaging to ensure resolution of infiltrates
[2017-05-01] MEDS ORDERED: INSULIN (NOVOLOG) ASPART 100 UNITS/ML 10ML VIAL ONE ×2 (11:35→17:13)
--- NOTE | 2017-05-01 14:38 | PN ---
Progress Note, Physician History of Present Illness: The patient still reports mild dyspnea. Cough persists. - Current Medication List Current Medications: Active Medications Albuterol Sulfate (Ventolin 0.083% Nebulizer Soln -) 1 amp NEB Q4H PRN PRN Reason: SHORT OF BREATH/WHEEZING Albuterol/Ipratropium (Duoneb -) 1 amp NEB QIDR [facility] Last Admin: 05/01/17 11:25 Dose: 1 amp Doxycycline Hyclate (Vibramycin -) 100 mg PO BID@1000,1800 [facility] Last Admin: 05/01/17 10:14 Dose: 100 mg Furosemide (Lasix Injection -) 40 mg IVPB DAILY [facility] Last Admin: 05/01/17 10:14 Dose: 40 mg Ceftriaxone Sodium 2 gm/ (Dextrose) 100 mls @ 200 mls/hr IVPB DAILY [facility] Last Admin: 05/01/17 10:15 Dose: 200 mls/hr Insulin Aspart (Novolog Vial Sliding Scale -) 1 vial SQ ACHS [facility] PRN Reason: Protocol Last Admin: 05/01/17 11:45 Dose: 7 unit Insulin Detemir (Levemir Vial) 50 units SQ BIDI [facility] Last Admin: 05/01/17 06:08 Dose: 50 units Lisinopril (Prinivil) 20 mg PO DAILY [facility] Last Admin: 05/01/17 10:14 Dose: 20 mg Methylprednisolone Sodium Succinate (Solu-Medrol -) 40 mg IVPB BID [facility] Last Admin: 05/01/17 10:17 Dose: 40 mg Metoprolol Tartrate (Lopressor -) 50 mg PO BID [facility] Last Admin: 05/01/17 10:14 Dose: 50 mg Nystatin (Nystatin Oral Suspension -) 500,000 units PO Q6HPO [facility] Last Admin: 05/01/17 11:42 Dose: 500,000 units Spironolactone (Aldactone -) 25 mg PO DAILY [facility] Last Admin: 05/01/17 10:14 Dose: 25 mg - Objective Vital Signs: Vital Signs Temperature 98.2 F 05/01/17 08:35 Pulse Rate 99 H 05/01/17 11:25 Respiratory Rate 18 05/01/17 08:35 Blood Pressure 157/104 05/01/17 08:35 O2 Sat by Pulse Oximetry (%) 96 05/01/17 11:25 Constitutional: Yes: Well Nourished Eyes: Yes: WNL HENT: Yes: WNL Neck: Yes: WNL, Supple Cardiovascular: Yes: Regular Rate and Rhythm, S1, S2 Respiratory: Yes: Accessory Muscle Use, Cough, Rales, Rhonchi Gastrointestinal: Yes: WNL ...Rectal Exam: Yes: Deferred Musculoskeletal: Yes: WNL Extremities: Yes: WNL Edema: LLE: Trace, RLE: Trace Peripheral Pulses WNL: Yes Labs: CBC, BMP 04/29/17 06:30 04/29/17 06:30 INR, PTT INR 1.09 (0.82-1.09) 04/26/17 09:50 Assessment/Plan The patient continues to cough. Mild respiratory distress. No angina. The blood pressure needs better control. Please increase lisinopril to 40 mg daily. Continue metoprolol as currently. Continue intravenous Lasix as currently. Sodium and fluid restrictions. There is no need for further cardiac workup at this point.
--- NOTE | 2017-05-01 16:17 | PN ---
Progress Note, Physician Chief Complaint: SOB, Cough, Pneumonia History of Present Illness: NAD, OOB in chair, coughing minimally, no hemoptysis, sob, fatigue or chills. No fevers. On iV abx and steroids went for U/S abd,alk phos mildly abnormal, likely secondary to hepatomegaly, - Current Medication List Current Medications: Active Medications Albuterol Sulfate (Ventolin 0.083% Nebulizer Soln -) 1 amp NEB Q4H PRN PRN Reason: SHORT OF BREATH/WHEEZING Albuterol/Ipratropium (Duoneb -) 1 amp NEB QIDR [facility] Last Admin: 05/01/17 11:25 Dose: 1 amp Doxycycline Hyclate (Vibramycin -) 100 mg PO BID@1000,1800 [facility] Last Admin: 05/01/17 10:14 Dose: 100 mg Furosemide (Lasix Injection -) 40 mg IVPB DAILY [facility] Last Admin: 05/01/17 10:14 Dose: 40 mg Ceftriaxone Sodium 2 gm/ (Dextrose) 100 mls @ 200 mls/hr IVPB DAILY [facility] Last Admin: 05/01/17 10:15 Dose: 200 mls/hr Insulin Aspart (Novolog Vial Sliding Scale -) 1 vial SQ ACHS [facility] PRN Reason: Protocol Last Admin: 05/01/17 11:45 Dose: 7 unit Insulin Detemir (Levemir Vial) 50 units SQ BIDI [facility] Last Admin: 05/01/17 06:08 Dose: 50 units Lisinopril (Prinivil) 40 mg PO DAILY [facility] Methylprednisolone Sodium Succinate (Solu-Medrol -) 40 mg IVPB BID [facility] Last Admin: 05/01/17 10:17 Dose: 40 mg Metoprolol Tartrate (Lopressor -) 50 mg PO BID [facility] Last Admin: 05/01/17 10:14 Dose: 50 mg Nystatin (Nystatin Oral Suspension -) 500,000 units PO Q6HPO [facility] Last Admin: 05/01/17 11:42 Dose: 500,000 units Spironolactone (Aldactone -) 25 mg PO DAILY [facility] Last Admin: 05/01/17 10:14 Dose: 25 mg - Objective Vital Signs: Vital Signs Temperature 97.7 F 05/01/17 15:51 Pulse Rate 77 05/01/17 15:51 Respiratory Rate 20 05/01/17 15:51 Blood Pressure 140/97 05/01/17 15:51 O2 Sat by Pulse Oximetry (%) 96 05/01/17 11:25 Constitutional: Yes: Well Nourished, No Distress, Calm Cardiovascular: Yes: Regular Rate and Rhythm Respiratory: Yes: Regular, Wheezes (LLL) Gastrointestinal: Yes: Normal Bowel Sounds Extremities: Yes: WNL Edema: No Peripheral Pulses WNL: Yes Neurological: Yes: Alert, Oriented Psychiatric: Yes: Alert, Oriented Labs: CBC, BMP 04/29/17 06:30 04/29/17 06:30 INR, PTT INR 1.09 (0.82-1.09) 04/26/17 09:50 Problem List - Problems (1) CHF (congestive heart failure) Code(s): I50.9 - HEART FAILURE, UNSPECIFIED Qualifiers: Congestive heart failure type: unspecified congestive heart failure type Congestive heart failure chronicity: acute on chronic Qualified Code(s ): I50.9 - Heart failure, unspecified (2) COPD exacerbation Code(s): J44.1 - CHRONIC OBSTRUCTIVE PULMONARY DISEASE W (ACUTE) EXACERBATION (3) Pneumonia Code(s): J18.9 - PNEUMONIA, UNSPECIFIED ORGANISM (4) Abnormal liver enzymes Code(s): R74.8 - ABNORMAL LEVELS OF OTHER SERUM ENZYMES (5) Hepatomegaly Code(s): R16.0 - HEPATOMEGALY, NOT ELSEWHERE CLASSIFIED (6) HTN (hypertension) Code(s): I10 - ESSENTIAL (PRIMARY) HYPERTENSION Assessment/Plan -IV abx -IV steroids -Pulmonary, ID and GI consult -neb treatments -labs in AM -Final cultures pending -lisinopril increased to 40 mg po daily as recommended by Cardiology
--- NOTE | 2017-05-01 16:33 | PN ---
Progress Note (short form) - Note Progress Note: called to evkalee elevated ALP. Ms. Cardoso's nurse asked her if she is followed by a air boatswain. She had EGD/Colnoscopy and named Dr. Ortiz as her air boatswain. Advised ZAHRA Rider to call Dr. Ortiz's service for further evaluation.
[2017-05-01] MEDS ORDERED: INSULIN DETEMIR 100 UNITS/ML MDV SQ ONE (17:29)
[2017-05-02] MEDS ORDERED: INSULIN SLIDING SCALE (NOVOLOG) 1 VIAL SQ SCH (00:12)
--- NOTE | 2017-05-02 00:17 | PN ---
Progress Note (short form) - Note Progress Note: high sugars with insulin resistant effects likely steroid related Laboratory Results - last 24 hr 05/01/17 05/01/17 05/01/17 06:06 11:14 17:19 POC Glucometer 254 201 355 05/01/17 22:12 POC Glucometer 240 Current Active Problems Abnormal liver enzymes (Acute) Asthma (Acute) CHF (congestive heart failure) (Acute) COPD exacerbation (Acute) Cardiomyopathy (Acute) Diabetes (Acute) Edema (Acute) HTN (hypertension) (Acute) Hemoptysis (Acute) Hepatomegaly (Acute) Mediastinal adenopathy (Acute) Pneumonia (Acute) plan: bgm dose titration as sugar remain elevated levemir 60 units bid Problem List - Problems (1) Asthma Code(s): J45.909 - UNSPECIFIED ASTHMA, UNCOMPLICATED Qualifiers: Asthma severity: unspecified severity Asthma complication type: uncomplicated Qualified Code(s): J45.909 - Unspecified asthma, uncomplicated (2) CHF (congestive heart failure) Code(s): I50.9 - HEART FAILURE, UNSPECIFIED Qualifiers: Congestive heart failure type: unspecified congestive heart failure type Congestive heart failure chronicity: acute on chronic Qualified Code(s ): I50.9 - Heart failure, unspecified (3) COPD exacerbation Code(s): J44.1 - CHRONIC OBSTRUCTIVE PULMONARY DISEASE W (ACUTE) EXACERBATION (4) Cardiomyopathy Code(s): I42.9 - CARDIOMYOPATHY, UNSPECIFIED (5) Diabetes Code(s): E11.9 - TYPE 2 DIABETES MELLITUS WITHOUT COMPLICATIONS Qualifiers: Diabetes mellitus type: type 1 Diabetes mellitus complication status: with hyperglycemia Qualified Code(s): E10.65 - Type 1 diabetes mellitus with hyperglycemia (6) Edema Code(s): R60.9 - EDEMA, UNSPECIFIED
[2017-05-02] MEDS ORDERED: INSULIN (NOVOLOG) ASPART 100 UNITS/ML 10ML VIAL ONE ×3 (06:18→20:24)
[2017-05-02] MEDS: INSULIN DETEMIR 100 UNITS/ML MDV SQ SCH ×2 (06:25→17:40)
[2017-05-02] MEDS: NYSTATIN 500,000 UNITS/5 ML SUSPENSION PO SCH ×4 (06:25→17:36)
[2017-05-02] MEDS: INSULIN SLIDING SCALE (NOVOLOG) 1 VIAL SQ SCH ×4 (06:26→21:41)
--- NOTE | 2017-05-02 08:21 | PN ---
Progress Note, Physician History of Present Illness: FEELS BETTER LESS SOB NO CP - Current Medication List Current Medications: Active Medications Doxycycline Hyclate (Vibramycin -) 100 mg PO BID@1000,1800 [facility] Last Admin: 05/01/17 17:21 Dose: 100 mg Furosemide (Lasix Injection -) 40 mg IVPB DAILY [facility] Last Admin: 05/01/17 10:14 Dose: 40 mg Ceftriaxone Sodium 2 gm/ (Dextrose) 100 mls @ 200 mls/hr IVPB DAILY [facility] Last Admin: 05/01/17 10:15 Dose: 200 mls/hr Insulin Aspart (Novolog Vial Sliding Scale -) 1 vial SQ ACHS [facility] PRN Reason: Protocol Last Admin: 05/02/17 06:26 Dose: 9 units Insulin Detemir (Levemir Vial) 60 units SQ BIDI [facility] Last Admin: 05/02/17 06:25 Dose: 60 units Lisinopril (Prinivil) 40 mg PO DAILY [facility] Methylprednisolone Sodium Succinate (Solu-Medrol -) 40 mg IVPB BID [facility] Last Admin: 05/01/17 22:13 Dose: 40 mg Metoprolol Tartrate (Lopressor -) 50 mg PO BID [facility] Last Admin: 05/01/17 22:13 Dose: 50 mg Nystatin (Nystatin Oral Suspension -) 500,000 units PO Q6HPO [facility] Last Admin: 05/02/17 06:25 Dose: 500,000 units Spironolactone (Aldactone -) 25 mg PO DAILY [facility] Last Admin: 05/01/17 10:14 Dose: 25 mg - Objective Vital Signs: Vital Signs Temperature 97.8 F 05/02/17 06:55 Pulse Rate 77 05/02/17 06:55 Respiratory Rate 20 05/02/17 06:55 Blood Pressure 166/109 05/02/17 06:55 O2 Sat by Pulse Oximetry (%) 96 05/01/17 21:00 Cardiovascular: Yes: Regular Rate and Rhythm Respiratory: Yes: Regular, CTA Bilaterally Gastrointestinal: Yes: Normal Bowel Sounds, Soft Labs: CBC, BMP 04/29/17 06:30 04/29/17 06:30 INR, PTT INR 1.09 (0.82-1.09) 04/26/17 09:50 Problem List - Problems (1) COPD exacerbation Assessment/Plan: IV STEROIDS-TAPER--TO PO IV ABX--DAY 6/7 NEBS PULM CONSULT Code(s): J44.1 - CHRONIC OBSTRUCTIVE PULMONARY DISEASE W (ACUTE) EXACERBATION (2) Pneumonia Code(s): J18.9 - PNEUMONIA, UNSPECIFIED ORGANISM (3) Hemoptysis Assessment/Plan: RESOLVED MAYBE DUE TO PNA R/O MALIGNANCY PULM/ID ON BOARD ISOLATION AFB NEG TO DATE GOLD Code(s): R04.2 - HEMOPTYSIS (4) CHF (congestive heart failure) Assessment/Plan: IV LASIX ECHO CARDIO Code(s): I50.9 - HEART FAILURE, UNSPECIFIED Qualifiers: Congestive heart failure type: unspecified congestive heart failure type Congestive heart failure chronicity: acute on chronic Qualified Code(s ): I50.9 - Heart failure, unspecified (5) Diabetes Assessment/Plan: INSULIN BGM ENDO Code(s): E11.9 - TYPE 2 DIABETES MELLITUS WITHOUT COMPLICATIONS Qualifiers: Diabetes mellitus type: type 1 Diabetes mellitus complication status: with hyperglycemia Qualified Code(s): E10.65 - Type 1 diabetes mellitus with hyperglycemia (6) Edema Assessment/Plan: LASIX DUPLEX Code(s): R60.9 - EDEMA, UNSPECIFIED (7) HTN (hypertension) Assessment/Plan: HIGH---ADJUST MEDS Code(s): I10 - ESSENTIAL (PRIMARY) HYPERTENSION
[2017-05-02] MEDS ORDERED: PT OWN MED DRAWER 7, Y5N ONE (09:05)
[2017-05-02] MEDS ORDERED: DEXTROSE 5%-WATER 100 ML IVPB ONE (09:05)
[2017-05-02] MEDS: SPIRONOLACTONE 25 MG TABLET (FP) PO SCH (09:16)
[2017-05-02] MEDS: METOPROLOL TARTRATE 50 MG TABLET (FP) PO SCH ×2 (09:16→21:40)
[2017-05-02] MEDS: FUROSEMIDE 40 MG/4 ML INJECTABLE VIAL IVPB SCH (09:17)
[2017-05-02] MEDS: LISINOPRIL 20 MG TABLET (FP) PO SCH (09:17)
[2017-05-02] MEDS: amLODIPine BESYLATE 10 MG TABLET (FP) PO SCH (09:17)
[2017-05-02] MEDS: DOXYCYCLINE HYCLATE 100 MG CAPSULE PO SCH ×2 (09:17→17:36)
[2017-05-02] MEDS: CEFTRIAXONE 2 GM in DEXTROSE 5%-WATER 100 ML IVPB SCH (09:18)
[2017-05-02] MEDS: methylPREDNISolone NA SUCC 40 MG/1 ML VIAL IVPB SCH (09:19)
--- NOTE | 2017-05-02 10:35 | PN ---
Progress Note (short form) - Note Progress Note: PULMONARY +cough with yellow sputum without hemoptysis. No fevers or chills. Last Vital Signs Temp Pulse Resp BP Pulse Ox 97.8 F 77 20 166/109 96 05/02/17 06:55 05/02/17 06:55 05/02/17 06:55 05/02/17 06:55 05/01/17 21:00 Gen: NAD in chair Heart: RRR Lung: decreased breath sounds at the bases Abd: soft, nontender Ext: no edema CBC, BMP 04/29/17 06:30 04/29/17 06:30 Active Medications Amlodipine Besylate (Norvasc -) 10 mg PO DAILY [facility] Last Admin: 05/02/17 09:17 Dose: 10 mg Doxycycline Hyclate (Vibramycin -) 100 mg PO BID@1000,1800 [facility] Last Admin: 05/02/17 09:17 Dose: 100 mg Furosemide (Lasix Injection -) 40 mg IVPB DAILY [facility] Last Admin: 05/02/17 09:17 Dose: 40 mg Ceftriaxone Sodium 2 gm/ (Dextrose) 100 mls @ 200 mls/hr IVPB DAILY [facility] Last Admin: 05/02/17 09:18 Dose: 200 mls/hr Insulin Aspart (Novolog Vial Sliding Scale -) 1 vial SQ ACHS [facility] PRN Reason: Protocol Last Admin: 05/02/17 06:26 Dose: 9 units Insulin Detemir (Levemir Vial) 60 units SQ BIDI [facility] Last Admin: 05/02/17 06:25 Dose: 60 units Lisinopril (Prinivil) 40 mg PO DAILY [facility] Last Admin: 05/02/17 09:17 Dose: 40 mg Metoprolol Tartrate (Lopressor -) 50 mg PO BID [facility] Last Admin: 05/02/17 09:16 Dose: 50 mg Nystatin (Nystatin Oral Suspension -) 500,000 units PO Q6HPO [facility] Last Admin: 05/02/17 06:25 Dose: 500,000 units Prednisone (Deltasone -) 40 mg PO DAILY [facility] Spironolactone (Aldactone -) 25 mg PO DAILY [facility] Last Admin: 05/02/17 09:16 Dose: 25 mg A/P Multilobar Pneumonia Hemoptysis resolved LV Systolic Dysfunction HTN Acute Asthma Exacerbation r/o RICKY - continue antibiotics per ID - inhaled bronchodilators - prednisone taper - glucose control while on systemic steroids - DVT prophylaxis - will need outpt f/u of chest imaging to ensure resolution of infiltrates - can d/c home once on PO antibiotics
--- NOTE | 2017-05-02 12:10 | PN ---
Progress Note (short form) - Note Progress Note: c/o heartburn/gerd Vital Signs Period Temp Pulse Resp BP Sys/Plasencia Pulse Ox Last 24 Hr 97.7 F-97.9 F 77-83 20-20 140-166/86-109 96 no thrush cor-rrr lungs decreased bs at bases abd soft,nt ext trace edema CBC, BMP 04/29/17 06:30 04/29/17 06:30 Microbiology 04/26/17 20:00 Nasopharyngeal Swab Influenza Types A,B Antigen (CORNELIO) - Final 04/26/17 20:00 Nasopharyngeal Swab - Final 04/29/17 11:00 Sputum - Expectorated AFB Smear Concentration - Final 04/29/17 11:00 Sputum - Expectorated Direct Acid Fast Bacilli Smear - Final 04/29/17 11:00 Sputum - Expectorated Mycobacterial Culture - Preliminary 04/30/17 12:00 Sputum - Expectorated AFB Smear Concentration - Final 04/30/17 12:00 Sputum - Expectorated Direct Acid Fast Bacilli Smear - Final 04/30/17 12:00 Sputum - Expectorated Mycobacterial Culture - Preliminary 04/26/17 09:16 Blood - Peripheral Venous Blood Culture - Final NO GROWTH AFTER 5 DAYS INCUBATION 04/26/17 09:16 Blood - Peripheral Venous Blood Culture - Final NO GROWTH AFTER 5 DAYS INCUBATION 04/28/17 16:00 Sputum - Expectorated Mycobacteria (PCR) - Preliminary 04/28/17 06:00 Sputum - Expectorated AFB Smear Concentration - Final 04/28/17 06:00 Sputum - Expectorated Direct Acid Fast Bacilli Smear - Final 04/28/17 06:00 Sputum - Expectorated Mycobacterial Culture - Preliminary 04/30/17 07:00 Sputum - Expectorated ALDAIR Preparation - Preliminary 04/30/17 07:00 Sputum - Expectorated Fungal Culture - Preliminary 04/29/17 10:20 Blood - Peripheral Venous TB Test (QFT) (CORNELIO) - Preliminary 04/26/17 21:00 Sputum - Expectorated Gram Stain - Final 04/26/17 21:00 Sputum - Expectorated Sputum Culture - Final NORMAL RESPIRATORY WILLAM 04/26/17 21:00 Urine For Antigen Detection Legionella Antigen - Final 04/26/17 21:00 Urine For Antigen Detection Streptococcus pneumoniae Antigen (M - Final Current Medications Amlodipine Besylate (Norvasc -) 10 mg PO DAILY [facility] Last Admin: 05/02/17 09:17 Dose: 10 mg Doxycycline Hyclate (Vibramycin -) 100 mg PO BID@1000,1800 [facility] Last Admin: 05/02/17 09:17 Dose: 100 mg Furosemide (Lasix Injection -) 40 mg IVPB DAILY [facility] Last Admin: 05/02/17 09:17 Dose: 40 mg Ceftriaxone Sodium 2 gm/ (Dextrose) 100 mls @ 200 mls/hr IVPB DAILY [facility] Last Admin: 05/02/17 09:18 Dose: 200 mls/hr Insulin Aspart (Novolog Vial Sliding Scale -) 1 vial SQ ACHS [facility] PRN Reason: Protocol Last Admin: 05/02/17 06:26 Dose: 9 units Insulin Detemir (Levemir Vial) 60 units SQ BIDI [facility] Last Admin: 05/02/17 06:25 Dose: 60 units Lisinopril (Prinivil) 40 mg PO DAILY [facility] Last Admin: 05/02/17 09:17 Dose: 40 mg Metoprolol Tartrate (Lopressor -) 50 mg PO BID [facility] Last Admin: 05/02/17 09:16 Dose: 50 mg Nystatin (Nystatin Oral Suspension -) 500,000 units PO Q6HPO [facility] Last Admin: 05/02/17 06:25 Dose: 500,000 units Prednisone (Deltasone -) 40 mg PO DAILY [facility] Spironolactone (Aldactone -) 25 mg PO DAILY [facility] Last Admin: 05/02/17 09:16 Dose: 25 mg a/p pneumonia with hemoptysis- infectious- cover for hcap ?inflammatory- r/o sarcoid r/o neoplasm sputum afb and mt pcr are negative can d/c isolation sputum cytology sputumfungal culture fungitell/aspergillus galactomannan urinary antigens are negative rocephin/doxy- day #7 erythrocytosis mediastinal adenopathy asthma exacerbation diabetes repeat cbc d/c isolation Problem List - Problems (1) Pneumonia Code(s): J18.9 - PNEUMONIA, UNSPECIFIED ORGANISM (2) Mediastinal adenopathy Code(s): R59.0 - LOCALIZED ENLARGED LYMPH NODES (3) Asthma Code(s): J45.909 - UNSPECIFIED ASTHMA, UNCOMPLICATED Qualifiers: Asthma severity: unspecified severity Asthma complication type: uncomplicated Qualified Code(s): J45.909 - Unspecified asthma, uncomplicated (4) Cardiomyopathy Code(s): I42.9 - CARDIOMYOPATHY, UNSPECIFIED
[2017-05-02] MEDS ORDERED: MAG HYDROX/AL HYDROX/SIMETH 30 ML UNIT-DOSE CUP PO ONE (12:11)
[2017-05-02] MEDS: predniSONE 20 MG TABLET (UD) PO SCH (12:32)
[2017-05-02] MEDS ORDERED: MAG HYDROX/AL HYDROX/SIMETH 355 ML ORAL.SUSP PO PRN (13:39)
--- NOTE | 2017-05-02 14:44 | PN ---
Progress Note, Physician History of Present Illness: The patient respiratory status is improved. She is breathing more comfortably. Denies chest pains and shortness of breath. - Current Medication List Current Medications: Active Medications Al Hydroxide/Mg Hydroxide (Mylanta Suspension -) 15 ml PO Q6HPO PRN PRN Reason: DYSPEPSIA Amlodipine Besylate (Norvasc -) 10 mg PO DAILY [facility] Last Admin: 05/02/17 09:17 Dose: 10 mg Doxycycline Hyclate (Vibramycin -) 100 mg PO BID@1000,1800 [facility] Last Admin: 05/02/17 09:17 Dose: 100 mg Furosemide (Lasix Injection -) 40 mg IVPB DAILY [facility] Last Admin: 05/02/17 09:17 Dose: 40 mg Ceftriaxone Sodium 2 gm/ (Dextrose) 100 mls @ 200 mls/hr IVPB DAILY [facility] Last Admin: 05/02/17 09:18 Dose: 200 mls/hr Insulin Aspart (Novolog Vial Sliding Scale -) 1 vial SQ ACHS [facility] PRN Reason: Protocol Last Admin: 05/02/17 12:38 Dose: 8 units Insulin Detemir (Levemir Vial) 60 units SQ BIDI [facility] Last Admin: 05/02/17 06:25 Dose: 60 units Lisinopril (Prinivil) 40 mg PO DAILY [facility] Last Admin: 05/02/17 09:17 Dose: 40 mg Metoprolol Tartrate (Lopressor -) 50 mg PO BID [facility] Last Admin: 05/02/17 09:16 Dose: 50 mg Nystatin (Nystatin Oral Suspension -) 500,000 units PO Q6HPO [facility] Last Admin: 05/02/17 12:38 Dose: 500,000 units Prednisone (Deltasone -) 40 mg PO DAILY [facility] Last Admin: 05/02/17 12:32 Dose: 40 mg Spironolactone (Aldactone -) 25 mg PO DAILY [facility] Last Admin: 05/02/17 09:16 Dose: 25 mg - Objective Vital Signs: Vital Signs Temperature 97.9 F 05/02/17 08:20 Pulse Rate 74 05/02/17 12:45 Respiratory Rate 20 05/02/17 08:20 Blood Pressure 153/102 05/02/17 12:45 O2 Sat by Pulse Oximetry (%) 96 05/01/17 21:00 Constitutional: Yes: Mild Distress, Obese Eyes: Yes: WNL HENT: Yes: WNL, Atraumatic, Normocephalic Neck: Yes: Supple, Trachea Midline Cardiovascular: Yes: Regular Rate and Rhythm, S1, S2, Other (Minimal rales bilaterally) Respiratory: Yes: Regular, Rales Gastrointestinal: Yes: WNL ...Rectal Exam: Yes: Deferred Musculoskeletal: Yes: Back Pain, Muscle Pain Extremities: Yes: WNL Edema: No Peripheral Pulses WNL: Yes Integumentary: Yes: WNL Neurological: Yes: WNL ...Motor Strength: WNL Psychiatric: Yes: WNL Labs: CBC, BMP 04/29/17 06:30 04/29/17 06:30 INR, PTT INR 1.09 (0.82-1.09) 04/26/17 09:50 Assessment/Plan The patient is responding to treatment. She is clinically better. Her cough improved. She reports no shortness of breath nor chest pains. The patient has moderate left ventricular systolic dysfunction. She needs salt and fluid restrictions. Stop metoprolol tartrate. Start Toprol-XL 100 mg daily. Start hydralazine 25 mg 3 times a day. Continue the other medications as currently. There is no need for further cardiac workup at this point. Please do not hesitate to call us PRN
--- NOTE | 2017-05-02 14:51 | PATH ---
Cytology Non-Gynecological Report Patient Name: NANCY KWOK Med. Rec. #: [id number] /Age/Gender: 1960 (Age: 57) / F Account: [id number] Location: [facility] MED/SURG Taken: 04/30/2017 Received: 05/01/2017 Reported: 05/02/2017 Physicians: Christian Veronica M.D. Specimen(s) Received SPUTUM Clinical History r/o lung cancer Final Diagnosis SPUTUM FOR CYTOLOGY: EVALUATION LIMITED BY THE ABSENCE OF ALVEOLAR MACROPHAGES. SQUAMOUS CELLS AND INFLAMMATORY CELLS PRESENT. FUNGAL ORGANISM MORPHOLOGICALLY CONSISTENT WITH STEFANIE SPECIES PRESENT. Comment: Note no macrophages are present. The specimen does not represent lower respiratory system. Clinical correlations are suggested. Electronically Signed Dino Ramirez M.D. Gross Description Received is 50 cc of clear fluid in 50% alcohol. Two cytofunnel slides are made.
--- NOTE | 2017-05-02 14:51 | PATH ---
Cytology Non-Gynecological Report Patient Name: NANCY KWOK Med. Rec. #: [id number] /Age/Gender: 1960 (Age: 57) / F Account: [id number] Location: [facility] MED/SURG Taken: 05/01/2017 Received: 05/01/2017 Reported: 05/02/2017 Physicians: Christian Veronica M.D. Specimen(s) Received SPUTUM Clinical History r/o lung cancer Final Diagnosis SPUTUM FOR CYTOLOGY: EVALUATION LIMITED BY THE ABSENCE OF ALVEOLAR MACROPHAGES. SQUAMOUS CELLS AND INFLAMMATORY CELLS PRESENT. FUNGAL ORGANISMS MORPHOLOGICALLY CONSISTENT WITH STEFANIE SPECIES PRESENT. Comment: No alveolar macrophages are seen. The specimen does not represent lower respiratory system. Clinical correlations are suggested. Electronically Signed Dino Ramirez M.D. Gross Description Received is 50 cc of pink fluid in 50% alcohol. Two cytofunnel slides are made.
[2017-05-03 00:06] LABS: C-ANCA <1:20 titer (Neg:<1:20); MYELOPEROXIDASE ANTIBODY <9.0 U/mL (0.0-9.0); P-ANCA <1:20 titer (Neg:<1:20); PROTEINASE-3 ANTIBODY <3.5 U/mL (0.0-3.5)
[2017-05-03] MEDS: NYSTATIN 500,000 UNITS/5 ML SUSPENSION PO SCH ×3 (06:14→13:07)
[2017-05-03] MEDS: INSULIN SLIDING SCALE (NOVOLOG) 1 VIAL SQ SCH ×2 (08:36→11:40)
[2017-05-03] MEDS: INSULIN DETEMIR 100 UNITS/ML MDV SQ SCH (08:37)
[2017-05-03] MEDS ORDERED: INSULIN DETEMIR 100 UNITS/ML MDV SQ ONE (08:45)
[2017-05-03] MEDS ORDERED: INSULIN (NOVOLOG) ASPART 100 UNITS/ML 10ML VIAL ONE ×2 (08:46→11:35)
[2017-05-03] MEDS ORDERED: DEXTROSE 5%-WATER 100 ML IVPB ONE (10:43)
--- NOTE | 2017-05-03 10:55 | PN ---
Progress Note (short form) - Note Progress Note: PULMONARY AWAKE/ALERT APPEARS IMPROVED VSS/AFEBRILE ANICTERIC DISTANT BREATH SOUNDS S1S2 OBESE DIMINISHED ANKLE EDEMA LABS/MEDS/NOTES/IMAGING/MICRO NOTED SPOKE WITH FAMILY IMP EXTENSIVE BILATERAL CONSOLIDATIONS LIKELY PNEUMONIA,?INFLAMMATORY,?MALIGNANT HEMOPTYSIS SECONDARY TO ABOVE NOW RESOLVED CHF NON-ISCHEMIC CARDIOMYOPATHY MEDIASTINAL AND HILAR ADENOPATHY ?REACTIVE,?MALIGNANT,?SARCOID COPD/ASTHMA ERYTHROCYTOSIS DM HTN LIKEY OSAS PLAN AGREE WITH OUTPATIENT STATUS INHALED BRONCHODILATORS STEROID TAPER OUTPATIENT LASIX FOLLOWUP CHEST CT 6-8WKS TO DOCUMENT RESOLUTION OF INFILTRATES Cassandra BUENO MD
[2017-05-03] MEDS: LISINOPRIL 20 MG TABLET (FP) PO SCH (11:24)
[2017-05-03] MEDS: METOPROLOL TARTRATE 50 MG TABLET (FP) PO SCH (11:24)
[2017-05-03] MEDS: predniSONE 20 MG TABLET (UD) PO SCH (11:25)
[2017-05-03] MEDS: amLODIPine BESYLATE 10 MG TABLET (FP) PO SCH (11:25)
[2017-05-03] MEDS: SPIRONOLACTONE 25 MG TABLET (FP) PO SCH (11:25)
[2017-05-03] MEDS: DOXYCYCLINE HYCLATE 100 MG CAPSULE PO SCH (11:26)
[2017-05-03] MEDS: FUROSEMIDE 40 MG/4 ML INJECTABLE VIAL IVPB SCH (11:27)
[2017-05-03] MEDS: CEFTRIAXONE 2 GM in DEXTROSE 5%-WATER 100 ML IVPB SCH (11:27)
[2017-05-03 12:01] VITALS: TEMP 98.2
--- NOTE | 2017-05-03 12:40 | PN ---
Progress Note (short form) - Note Progress Note: feels great no wheezing no cough Vital Signs Period Temp Pulse Resp BP Sys/Plasencia Pulse Ox Last 24 Hr 97.2 F-98.2 F 60-85 20-20 141-155/79-109 99 cor-rrr lungs clear abd soft,nt ext no edema CBC, BMP 04/29/17 06:30 04/29/17 06:30 Microbiology 04/28/17 16:00 Sputum - Expectorated Mycobacteria (PCR) - Preliminary 04/26/17 20:00 Nasopharyngeal Swab Influenza Types A,B Antigen (CORNELIO) - Final 04/26/17 20:00 Nasopharyngeal Swab - Final 04/29/17 11:00 Sputum - Expectorated AFB Smear Concentration - Final 04/29/17 11:00 Sputum - Expectorated Direct Acid Fast Bacilli Smear - Final 04/29/17 11:00 Sputum - Expectorated Mycobacterial Culture - Preliminary 04/30/17 12:00 Sputum - Expectorated AFB Smear Concentration - Final 04/30/17 12:00 Sputum - Expectorated Direct Acid Fast Bacilli Smear - Final 04/30/17 12:00 Sputum - Expectorated Mycobacterial Culture - Preliminary 04/26/17 09:16 Blood - Peripheral Venous Blood Culture - Final NO GROWTH AFTER 5 DAYS INCUBATION 04/26/17 09:16 Blood - Peripheral Venous Blood Culture - Final NO GROWTH AFTER 5 DAYS INCUBATION 04/28/17 06:00 Sputum - Expectorated AFB Smear Concentration - Final 04/28/17 06:00 Sputum - Expectorated Direct Acid Fast Bacilli Smear - Final 04/28/17 06:00 Sputum - Expectorated Mycobacterial Culture - Preliminary 04/30/17 07:00 Sputum - Expectorated ALDAIR Preparation - Preliminary 04/30/17 07:00 Sputum - Expectorated Fungal Culture - Preliminary 04/29/17 10:20 Blood - Peripheral Venous TB Test (QFT) (CORNELIO) - Preliminary 04/26/17 21:00 Sputum - Expectorated Gram Stain - Final 04/26/17 21:00 Sputum - Expectorated Sputum Culture - Final NORMAL RESPIRATORY WILLAM 04/26/17 21:00 Urine For Antigen Detection Legionella Antigen - Final 04/26/17 21:00 Urine For Antigen Detection Streptococcus pneumoniae Antigen (M - Final a/p pneumonia with hemoptysis- multilobar i rocephin/doxy- day #8 can switch to po ceftin/doxycycline to complete 10 days Total erythrocytosis-should have heme followup as outpt mediastinal adenopathy-will need repeat chest ct as outpt per pulmonary asthma exacerbation diabetes Problem List - Problems (1) Pneumonia Code(s): J18.9 - PNEUMONIA, UNSPECIFIED ORGANISM (2) Mediastinal adenopathy Code(s): R59.0 - LOCALIZED ENLARGED LYMPH NODES (3) Asthma Code(s): J45.909 - UNSPECIFIED ASTHMA, UNCOMPLICATED Qualifiers: Asthma severity: unspecified severity Asthma complication type: uncomplicated Qualified Code(s): J45.909 - Unspecified asthma, uncomplicated (4) Cardiomyopathy Code(s): I42.9 - CARDIOMYOPATHY, UNSPECIFIED
[2017-05-03 13:10] LABS: ASPERGILLUS GALACTOMANNAN AG 0.04
--- NOTE | 2017-05-03 13:47 | PATH ---
Cytology Non-Gynecological Report Patient Name: NANCY KWOK Med. Rec. #: [id number] /Age/Gender: 1960 (Age: 57) / F Account: [id number] Location: [facility] MED/SURG Taken: 05/02/2017 Received: 05/02/2017 Reported: 05/03/2017 Physicians: Christian Veronica M.D. Specimen(s) Received SPUTUM Clinical History r/o lung cancer Final Diagnosis SPUTUM FOR CYTOLOGY: EVALUATION IS LIMITED BY THE ABSENCE OF ALVEOLAR MACROPHAGES. SQUAMOUS CELLS AND INFLAMMATORY CELLS PRESENT. SCATTERED FUNGAL ORGANISMS MORPHOLOGICALLY CONSISTENT WITH STEFANIE SPECIES PRESENT. Comment: The specimen does not represent lower respiratory tract. Clinical correlations are suggested. Electronically Signed Dino Ramirez M.D. Gross Description Received is 50 cc of clear fluid in 50% alcohol. Two cytofunnel slides are made.
--- NOTE | 2017-05-03 14:19 | PN ---
Progress Note, Physician Chief Complaint: SOB, Cough, Pneumonia History of Present Illness: NAD, OOB in chair, - Current Medication List Current Medications: Active Medications Al Hydroxide/Mg Hydroxide (Mylanta Suspension -) 15 ml PO Q6HPO PRN PRN Reason: DYSPEPSIA Amlodipine Besylate (Norvasc -) 10 mg PO DAILY [facility] Last Admin: 05/03/17 11:25 Dose: 10 mg Doxycycline Hyclate (Vibramycin -) 100 mg PO BID@1000,1800 [facility] Last Admin: 05/03/17 11:26 Dose: 100 mg Furosemide (Lasix Injection -) 40 mg IVPB DAILY [facility] Last Admin: 05/03/17 11:27 Dose: Not Given Ceftriaxone Sodium 2 gm/ (Dextrose) 100 mls @ 200 mls/hr IVPB DAILY [facility] Last Admin: 05/03/17 11:27 Dose: Not Given Insulin Aspart (Novolog Vial Sliding Scale -) 1 vial SQ ACHS [facility] PRN Reason: Protocol Last Admin: 05/03/17 11:40 Dose: 8 units Insulin Detemir (Levemir Vial) 60 units SQ BIDI [facility] Last Admin: 05/03/17 08:37 Dose: 60 units Lisinopril (Prinivil) 40 mg PO DAILY [facility] Last Admin: 05/03/17 11:24 Dose: 40 mg Metoprolol Tartrate (Lopressor -) 50 mg PO BID [facility] Last Admin: 05/03/17 11:24 Dose: 50 mg Nystatin (Nystatin Oral Suspension -) 500,000 units PO Q6HPO [facility] Last Admin: 05/03/17 13:07 Dose: 500,000 units Prednisone (Deltasone -) 40 mg PO DAILY [facility] Last Admin: 05/03/17 11:25 Dose: 40 mg Spironolactone (Aldactone -) 25 mg PO DAILY [facility] Last Admin: 05/03/17 11:25 Dose: 25 mg - Objective Vital Signs: Vital Signs Temperature 98.2 F 05/03/17 12:00 Pulse Rate 85 05/03/17 12:00 Respiratory Rate 20 05/03/17 12:00 Blood Pressure 151/79 05/03/17 12:00 O2 Sat by Pulse Oximetry (%) 99 05/03/17 09:00 Constitutional: Yes: Well Nourished, No Distress, Calm Cardiovascular: Yes: Regular Rate and Rhythm Respiratory: Yes: Regular Gastrointestinal: Yes: Normal Bowel Sounds Musculoskeletal: Yes: WNL Extremities: Yes: WNL Edema: No Peripheral Pulses WNL: Yes Neurological: Yes: Alert, Oriented Psychiatric: Yes: Alert, Oriented Labs: CBC, BMP 04/29/17 06:30 04/29/17 06:30 INR, PTT INR 1.09 (0.82-1.09) 04/26/17 09:50 Problem List - Problems (1) CHF (congestive heart failure) Assessment/Plan: -PO diuretics daily -low sodium diet -seen by cardiology, no further cardiac work up recommended. Code(s): I50.9 - HEART FAILURE, UNSPECIFIED Qualifiers: Congestive heart failure type: unspecified congestive heart failure type Congestive heart failure chronicity: acute on chronic Qualified Code(s ): I50.9 - Heart failure, unspecified (2) COPD exacerbation Code(s): J44.1 - CHRONIC OBSTRUCTIVE PULMONARY DISEASE W (ACUTE) EXACERBATION (3) Pneumonia Assessment/Plan: -Abx changed to po for another 3 days -doxycycline 100 mg po BID x 3 days -ceftin 500 mg po BID x 3 days Code(s): J18.9 - PNEUMONIA, UNSPECIFIED ORGANISM (4) Abnormal liver enzymes Assessment/Plan: -Chronic, likely secondary to hepatomegaly Code(s): R74.8 - ABNORMAL LEVELS OF OTHER SERUM ENZYMES (5) Hepatomegaly Code(s): R16.0 - HEPATOMEGALY, NOT ELSEWHERE CLASSIFIED (6) HTN (hypertension) Assessment/Plan: -stable, baseline Code(s): I10 - ESSENTIAL (PRIMARY) HYPERTENSION (7) Polycythemia Assessment/Plan: f/u with hematology outpatient. Code(s): D75.1 - SECONDARY POLYCYTHEMIA Assessment/Plan will discharge home on tapering steroids and oral antibiotics will need repeat CT chest as outpatient f/u with PCP, pulmonary and hematology as outpatient
[2017-05-03 14:33] VITALS: BP 124/89; PULSE 78
== END 2017-05-03 15:42 | disposition home or self-care (01) | DRG 190 ==
LOC: JER 23:24 → JERBED 04-26 02:30 → UNDOADMIN 04-26 02:46 → J4S 04-26 15:28 → J4W 04-26 20:12 → J4S 04-26 20:15 → J4W 04-26 21:06 → J8W 04-27 19:42
PROVIDERS: ADMIT Family Medicine; ATTEND Family Medicine
DX: J44.1 Chronic obstructive pulmonary disease with (acute) exacerbation (principal); J18.9 Pneumonia, unspecified organism; I50.23 Acute on chronic systolic (congestive) heart failure; R04.2 Hemoptysis; B37.89 Other sites of candidiasis; I42.8 Other cardiomyopathies; R00.0 Tachycardia, unspecified; I11.0 Hypertensive heart disease with heart failure; R09.02 Hypoxemia; E66.8 Other obesity; Z68.37 Body mass index [BMI] 37.0-37.9, adult; J45.909 Unspecified asthma, uncomplicated; E78.5 Hyperlipidemia, unspecified; K21.9 Gastro-esophageal reflux disease without esophagitis; E10.65 Type 1 diabetes mellitus with hyperglycemia; R60.9 Edema, unspecified; G47.33 Obstructive sleep apnea (adult) (pediatric); R59.0 Localized enlarged lymph nodes; D75.1 Secondary polycythemia; R16.0 Hepatomegaly, not elsewhere classified; R74.8 Abnormal levels of other serum enzymes; Z79.4 Long term (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 of insulin
CPT/HCPCS: 36415; 71010-TC; 71275-TC; 76705-TC; 80053; 80061; 82553; 82947; 83036; 83520; 83721; 83880; 84484; 85025; 85610; 85651; 85730; 86140; 86256; 86480; 87040; 87070; 87102; 87116; 87205; 87206; 87210; 87305; 87389; 87449; 87556; 87804; 87899; 88104; 88108; 90732; 93005; 93010; 93306-TC; 93970-TC; 94640; 99285-25; G0009; J1644

== ENCOUNTER 2017-07-01 02:08 | Inpatient (IN) | payer OTHER ==
[2017-07-01] MEDS ORDERED: ALBUTEROL SO4 0.083% IH SOL 2.5 MG/3 ML VIAL.NEB. NEB ONE ×2 (02:36→03:14)
--- NOTE | 2017-07-01 02:53 | PDOC ---
History of Present Illness - General Chief Complaint: Shortness of Breath Stated Complaint: DIFFICULTY BREATHING Time Seen by Provider: 07/01/17 02:15 History Source: Patient Exam Limitations: No Limitations - History of Present Illness Initial Comments: 07/01/17 02:43 Patient is a 57F with history of HTN, IDDM, Asthma/COPD, CHF and polycythemia here today complaining of shortness of breath after inhaling chemicals from a bug bomb. Paramedics report that she was exposed to tetramethrin and cypermethrin. Patient reports associated cough, wheezing, back pain and foot pain after exposure. She denies feeling ill before exposure. Denies chest pain, changes in vision, rhinorrhea, nausea, vomiting, and confusion. Paramedics report that her lungs were clear with normal vital signs when they arrived. Given albuterol and fluids in the field. Past History - Past Medical History Allergies/Adverse Reactions: Allergies Allergy/AdvReac Type Severity Reaction Status Date / Time No Known Allergies Allergy Verified 07/01/17 02:14 Home Medications: Ambulatory Orders Albuterol 2.5/Ipratropium 0.5 [Duoneb -] 1 neb NEB Q4H PRN #180 amp 05/03/17 Amlodipine Besylate [Norvasc -] 10 mg PO DAILY #30 tab 05/03/17 Atorvastatin Ca [Lipitor] 10 mg PO HS #30 tab 05/03/17 Cefuroxime Axetil [Ceftin -] 500 mg PO BID #6 tablet 05/03/17 Dapagliflozin Propanediol [Farxiga] 10 mg PO DAILY #30 tab 05/03/17 Doxycycline Hyclate [Vibramycin -] 100 mg PO BID@1000,1800 #6 cap 05/03/17 Furosemide [Lasix -] 40 mg PO DAILY #30 tab 05/03/17 Insulin (Levemir) [Levemir Flexpen -] 50 units SQ BID 30 Days each 05/03/17 Linaclotide [Linzess] 145 mcg PO DAILY #30 cap 05/03/17 Lisinopril [Prinivil] 40 mg PO DAILY #30 tablet 05/03/17 Metoprolol Tartrate [Lopressor -] 50 mg PO BID #30 tablet 05/03/17 Montelukast Na [Singulair -] 10 mg PO HS #30 tab 05/03/17 Nystatin Oral Suspension - [Nystatin Oral Susp 944976 Units/5 ML -] 500,000 units PO Q6HPO 10 Days ml 05/03/17 Prednisone [Deltasone -] 40 mg PO DAILY #32 tablet 05/03/17 Spironolactone [Aldactone -] 25 mg PO DAILY #30 tablet 05/03/17 Asthma: Yes Diabetes: Yes HTN: Yes Hypercholesterolemia: Yes - Surgical History Cholecystectomy: Yes - Suicide/Smoking/Psychosocial Hx Smoking History: Unknown if ever smoked Have you smoked in the past 12 months: Yes Number of Cigarettes Smoked Daily: 8 If you are a former smoker, when did you quit?: 1 month ago Information on smoking cessation initiated: No 'Breaking Loose' booklet given: 04/26/17 Hx Alcohol Use: No Drug/Substance Use Hx: No Substance Use Type: None Hx Substance Use Treatment: No Review of Systems - Review of Systems Comments:: 07/01/17 02:53 GENERAL/CONSTITUTIONAL: No fever or chills. No weakness. HEAD, EYES, EARS, NOSE AND THROAT: No change in vision. No sore throat. CARDIOVASCULAR: No chest pain. Positive for shortness of breath RESPIRATORY: Positive for cough and wheezing. Negative for hemoptysis. GASTROINTESTINAL: No nausea, vomiting, diarrhea or constipation. GENITOURINARY: No dysuria, frequency, or change in urination. MUSCULOSKELETAL: No joint or muscle swelling or pain. No neck or back pain. SKIN: No rash NEUROLOGIC: No headache, vertigo, loss of consciousness, or change in strength/ sensation. ENDOCRINE: No increased thirst. No abnormal weight change HEMATOLOGIC/LYMPHATIC: No anemia, easy bleeding, or history of blood clots. Positive for history of polycythemia. ALLERGIC/IMMUNOLOGIC: No hives or skin allergy. *Physical Exam - Vital Signs Last Vital Signs Temp Pulse Resp BP Pulse Ox 97.9 F 104 H 28 H 122/78 98 07/01/17 02:14 07/01/17 02:14 07/01/17 02:14 07/01/17 02:14 07/01/17 02:14 - Physical Exam Comments: 07/01/17 02:54 GENERAL: Awake, alert, and fully oriented, in no acute distress, coughing during interview HEAD: No signs of trauma, normocephalic, atraumatic EYES: PERRLA, EOMI, sclera anicteric, conjunctiva clear ENT: Auricles normal inspection, hearing grossly normal, nares patent, oropharynx clear without exudates. Moist mucosa NECK: Normal ROM, supple, no lymphadenopathy, JVD, or masses LUNGS: No distress, speaks full sentences, scattered wheezes bilaterally HEART: Regular rate and rhythm, normal S1 and S2, no murmurs, rubs or gallops, peripheral pulses normal and equal bilaterally. ABDOMEN: Soft, nontender, normoactive bowel sounds. No guarding, no rebound. No masses EXTREMITIES: Normal inspection, Normal range of motion, no edema. No clubbing or cyanosis. NEUROLOGICAL: Cranial nerves II through XII grossly intact. Normal speech, no focal sensorimotor deficits SKIN: Warm, Dry, normal turgor, no rashes or lesions noted. ED Treatment Course - LABORATORY CBC & Chemistry Diagram: 07/01/17 03:23 07/01/17 03:23 - RADIOLOGY Radiology Studies Ordered: Category Date Time Status CHEST X-RAY PORTABLE* [RAD] Stat Radiology 07/01/17 02:36 Ordered Medical Decision Making - Medical Decision Making 07/01/17 02:55 Patient is a 57F with history of HTN, IDDM, Asthma/COPD, CHF and polycythemia here today complaining of shortness of breath after inhaling tetramethrin and cypermethrin. Vital signs stable and normal. Will give additional duoneb and observe. Will eval further with cbc, cmp, ekg and cxr. 07/01/17 03:20 Poison control called. Chemical exposure to tetramethrin and cypermethrin can cause immediate respiratory reactions in people with asthma and copd. Can also cause a chemical pneumonitis with presentation delayed up to 6 hours. Will observe patient. Also recommended to use humidified oxygen. 07/01/17 04:41 Laboratory Tests 07/01/17 07/01/17 03:23 03:23 WBC 7.0 D Hgb 15.8 H Hct 48.5 H Plt Count 285 Sodium 140 Potassium 3.6 BUN 14 D Creatinine 1.1 H D Random Glucose 408 H* D Glucose 408, acetone added. Potassium 3.6. Will give gentle hydration and hold insulin. Upon further questioning, patient ate and did not take her insulin before coming into the ED today. Will give 6U insulin sq. 07/01/17 04:51 CXR shows bilateral patchy infiltrates, concerning for CHF vs pneumonitis. Patient's baseline CXR is likely abnormal, but concerned that a small insult to this patient with poor reserve will lead to a poor outcome. Will admit for further observation and management of DM/CHF. 07/01/17 05:27 EKG shows normal sinus rhythm at regular rate with right axis deviation. Multiple biphasic p waves. QTc prolongation to 505ms. No st elevations/ depressions. Will give 2g mag. 07/01/17 06:12 Dr Layne consulted for admission. Discussed patient. Referred admission back to Dr Pereyra. 07/01/17 06:30 Dr Pereyra consulted for admission. Discussed patient. Admitted to med/surg under Annabi. *DC/Admit/Observation/Transfer Diagnosis at time of Disposition: Shortness of breath - Discharge Dispostion Condition at time of disposition: Stable Admit: Yes - Referrals - Patient Instructions - Post Discharge Activity
[2017-07-01 03:32] LABS: BASOPHIL 0.7 % (0-2.0); EOSINOPHIL 1.2 % (0-4.5); MCH 29.5 pg (25.7-33.7); MCHC 32.6 g/dl (32.0-36.0); MEAN CELL VOLUME 90.3 fl (80-96); MEAN PLT VOLUME 8.1 fl (7.5-11.1); NEUTROPHILS 66.5 % (42.8-82.8); PLATELET COUNT 285 K/MM3 (134-434); RDW 16.5 % (11.6-15.6)
[2017-07-01 03:51] LABS: ALBUMIN 3.1 g/dl (3.4-5.0); ALK PHOS 203 U/L (45-117); ANION GAP 12 (8-16); BILIRUBIN,TOTAL 0.2 mg/dL (0.2-1.0); CALCIUM 9.2 mg/dL (8.5-10.1); CO2 25 mmol/L (21-32); CREATININE 1.1 mg/dL (0.55-1.02); SGOT/AST 13 U/L (15-37); SGPT/ALT 24 U/L (12-78); TOT PROT 6.7 g/dl (6.4-8.2)
[2017-07-01 04:07] LABS: GLUCOSE,RANDOM 408 mg/dL (74-106)
--- NOTE | 2017-07-01 04:51 | PDOC ---
Attending Attestation - Resident Resident Name: Harjinder Sullivan - ED Attending Attestation I have performed the following: I have examined & evaluated the patient, The case was reviewed & discussed with the resident, I agree w/resident's findings & plan - HPI HPI: 07/02/17 01:40 Pt has difficulty breathing after setting off a chemical insect icide bomb. - Physicial Exam PE: 07/02/17 01:40 Agree with resident exam - Medical Decision Making 07/01/17 06:28 Patient Name: NANCY KWOK THIS IS A PRELIMINARY REPORT FROM [facility] DATE OF SERVICE: 2017-07-01 04:31:44 IMAGES: 1 EXAM: X-RAY CHEST Patchy opacities right greater than left lungs, possibly pneumonitis, pneumonia or pulmonary edema. Cardiomegaly and/or pericardial effusion. THIS DOCUMENT HAS BEEN ELECTRONICALLY SIGNED 07/02/17 01:40 Pt improved home with PMD follow up.
[2017-07-01] MEDS ORDERED: MAGNESIUM SULF 50% (8.12 MEQ/2 ML-1 GM VIAL) IVPB ONE (05:28)
[2017-07-01] MEDS ORDERED: MAGNESIUM SULF 50% (8.12 MEQ/2 ML-1 GM VIAL) ONE (05:30)
[2017-07-01 09:39] LABS: MCH 29.3 pg (25.7-33.7); MCHC 32.1 g/dl (32.0-36.0); MEAN CELL VOLUME 91.3 fl (80-96); PLATELET COUNT 287 K/MM3 (134-434); RDW 16.7 % (11.6-15.6); WHITE BLOOD COUNT 7.8 K/mm3 (4.0-10.0)
[2017-07-01] MEDS ORDERED: ACETAMINOPHEN 325 MG TABLET (FP) PO PRN (09:51)
--- NOTE | 2017-07-01 10:02 | HP ---
Admitting History and Physical - Primary Care Physician PCP: Ronnie Winkler - Admission Chief Complaint: RESPIRATORY DISTRESS/ ACUTE ON CHRONIC CHF/ACUTE ON CHRONIC COPD/ASTHMA EXACERBATION History of Present Illness: 57 Y/O FEMALE NON-COMPLIANT DIABETIC WITH HISTORY OF CHF, COPD HERE WITH RESPIRATORY DISTRESS. PATIENT CLAIMS SHE INHALED AN UROLOGY SURGEON CHEMICAL THAT WAS USED IN HER HOUSE HOLD. EMS DESCRIBES THE CHEMICAL A CYPER/ TETRAMETHRINS. History Source: Medical Record Limitations to Obtaining History: Clinical Condition - Past Medical History Cardiovascular: Yes: HTN, Hyperlipdemia, Other. No: AFIB, CAD Pulmonary: Yes: Asthma, COPD. No: Pulmonary Embolus Gastrointestinal: Yes: GERD. No: Cancer Endocrine: Yes: Diabetes Mellitus - Smoking History Smoking history: Unknown if ever smoked Have you smoked in the past 12 months: Yes Aproximately how many cigarettes per day: 8 If you are a former smoker, when did you quit?: 1 month ago - Alcohol/Substance Use Hx Alcohol Use: No Home Medications - Allergies Allergies/Adverse Reactions: Allergies Allergy/AdvReac Type Severity Reaction Status Date / Time No Known Allergies Allergy Verified 07/01/17 02:14 - Home Medications Home Medications: Ambulatory Orders Albuterol 2.5/Ipratropium 0.5 [Duoneb -] 1 neb NEB Q4H PRN #180 amp 05/03/17 Amlodipine Besylate [Norvasc -] 10 mg PO DAILY #30 tab 05/03/17 Atorvastatin Ca [Lipitor] 10 mg PO HS #30 tab 05/03/17 Cefuroxime Axetil [Ceftin -] 500 mg PO BID #6 tablet 05/03/17 Dapagliflozin Propanediol [Farxiga] 10 mg PO DAILY #30 tab 05/03/17 Doxycycline Hyclate [Vibramycin -] 100 mg PO BID@1000,1800 #6 cap 05/03/17 Furosemide [Lasix -] 40 mg PO DAILY #30 tab 05/03/17 Insulin (Levemir) [Levemir Flexpen -] 50 units SQ BID 30 Days each 05/03/17 Linaclotide [Linzess] 145 mcg PO DAILY #30 cap 05/03/17 Lisinopril [Prinivil] 40 mg PO DAILY #30 tablet 05/03/17 Metoprolol Tartrate [Lopressor -] 50 mg PO BID #30 tablet 05/03/17 Montelukast Na [Singulair -] 10 mg PO HS #30 tab 05/03/17 Nystatin Oral Suspension - [Nystatin Oral Susp 833757 Units/5 ML -] 500,000 units PO Q6HPO 10 Days ml 05/03/17 Prednisone [Deltasone -] 40 mg PO DAILY #32 tablet 05/03/17 Spironolactone [Aldactone -] 25 mg PO DAILY #30 tablet 05/03/17 Review of Systems Findings/Remarks: BOLIVARSEY - Review of Systems Constitutional: reports: Lethargy, Weakness Eyes: reports: No Symptoms HENT: reports: No Symptoms Neck: reports: No Symptoms Cardiovascular: reports: No Symptoms Respiratory: reports: SOB, Wheezing Gastrointestinal: reports: No Symptoms Genitourinary: reports: No Symptoms Musculoskeletal: reports: Muscle Weakness Integumentary: reports: No Symptoms Neurological: reports: Weakness Endocrine: reports: No Symptoms Hematology/Lymphatic: reports: No Symptoms Psychiatric: reports: No Symptoms Physical Examination Vital Signs: Vital Signs Temperature 97.8 F 07/01/17 05:53 Pulse Rate 105 H 07/01/17 06:33 Respiratory Rate 16 07/01/17 05:53 Blood Pressure 119/90 07/01/17 05:53 O2 Sat by Pulse Oximetry (%) 96 07/01/17 06:43 Constitutional: Yes: Mild Distress Eyes: Yes: WNL HENT: Yes: WNL Neck: Yes: WNL Cardiovascular: Yes: WNL Respiratory: Yes: Wheezes Gastrointestinal: Yes: WNL Renal/: Yes: WNL Musculoskeletal: Yes: WNL Extremities: Yes: WNL Edema: Yes Edema: LLE: Trace, RLE: Trace Peripheral Pulses WNL: Yes Integumentary: Yes: WNL Wound/Incision: Yes: Clean/Dry Neurological: Yes: WNL ...Motor Strength: WNL Psychiatric: Yes: WNL Labs: CBC, BMP 07/01/17 09:25 Imaging - Results Chest X-ray: Report Reviewed, Image Reviewed Problem List - Problems (1) Diabetes 1.5, managed as type 1 Code(s): E10.9 - TYPE 1 DIABETES MELLITUS WITHOUT COMPLICATIONS (2) Shortness of breath Code(s): R06.02 - SHORTNESS OF BREATH (3) CHF (congestive heart failure) Code(s): I50.9 - HEART FAILURE, UNSPECIFIED Qualifiers: Congestive heart failure type: unspecified congestive heart failure type Congestive heart failure chronicity: acute on chronic Qualified Code(s): I50.9 - Heart failure, unspecified (4) COPD exacerbation Code(s): J44.1 - CHRONIC OBSTRUCTIVE PULMONARY DISEASE W (ACUTE) EXACERBATION (5) Cardiomyopathy Code(s): I42.9 - CARDIOMYOPATHY, UNSPECIFIED Qualifiers: Cardiomyopathy type: unspecified Qualified Code(s): I42.9 - Cardiomyopathy , unspecified (6) HTN (hypertension) Code(s): I10 - ESSENTIAL (PRIMARY) HYPERTENSION Qualifiers: Hypertension type: essential hypertension Qualified Code(s): I10 - Essential (primary) hypertension (7) Lethargy Code(s): R53.83 - OTHER FATIGUE Assessment/Plan AMMONIA LEVEL NOW BNP LEVEL CT CHEST AND HEAD NOW TRANSFER TELEMETRY ABG BGM CHECKS DIABETIC PRECAUTIONS
[2017-07-01 10:03] LABS: ANION GAP 6 (8-16); CALCIUM 8.6 mg/dL (8.5-10.1); CO2 29 mmol/L (21-32); CREATININE 0.9 mg/dL (0.55-1.02); GLUCOSE,RANDOM 292 mg/dL (74-106)
[2017-07-01] MEDS: INSULIN DETEMIR 100 UNITS/ML MDV SQ SCH ×2 (11:49→17:32)
[2017-07-01] MEDS: METOPROLOL TARTRATE 50 MG TABLET (FP) PO SCH ×2 (11:50→21:43)
[2017-07-01] MEDS: HEPARIN NA (PORCINE) 5,000 UNITS/ML 1ML VIAL SQ SCH ×2 (11:50→21:46)
[2017-07-01] MEDS: SPIRONOLACTONE 25 MG TABLET (FP) PO SCH (11:50)
[2017-07-01] MEDS: ATORVASTATIN CA 10 MG TABLET (FP) PO SCH ×2 (11:50→21:48)
[2017-07-01] MEDS: amLODIPine BESYLATE 5 MG TABLET (FP) PO SCH (11:51)
[2017-07-01] MEDS: FUROSEMIDE 40 MG/4 ML INJECTABLE VIAL IVPUSH SCH ×2 (11:52→14:55)
[2017-07-01 11:54] LABS: ARTERIAL BLD GAS O2 SATURATION 94.8 % (90-98.9); ARTERIAL BLOOD GAS BASE EXCESS 0.3 meq/l (-2-2); ARTERIAL BLOOD GAS HCO3 27.4 meq/L (22-26); ARTERIAL BLOOD GAS PO2 78.4 mmHg (80-100); ARTERIAL BLOOD GAS pH 7.31 (7.35-7.45)
[2017-07-01 11:55] LABS: ALLENS TEST POSITIVE
[2017-07-01 11:56] LABS: PT. ON O2? YES
--- NOTE | 2017-07-01 11:59 | CONSULT ---
Consult - text type - Consultation Consultation Note: Neurology History of Present Illness Patient is a 57F with history of HTN, IDDM, Asthma/COPD, CHF and polycythemia here today complaining of shortness of breath after inhaling chemicals from a bug bomb. Paramedics report that she was exposed to tetramethrin and cypermethrin. Patient reports associated cough, wheezing, back pain and foot pain after exposure. She denies feeling ill before exposure. Denies chest pain, changes in vision, rhinorrhea, nausea, vomiting, and confusion. Paramedics report that her lungs were clear with normal vital signs when they arrived. Given albuterol and fluids in the field. She was admitted to the hospital and CT head completed, reviewed images and report. Radiologist suggested MRI brain which was ordered. She is on telemetry monitoring and is somnolent but arousable. When awoken follows commands in k[place]. No focal deficits and able to move all extremities grossly. Does not maintain awakeness but was following basic comands. Past History - Past Medical History Allergies/Adverse Reactions: Allergies Allergy/AdvReac Type Severity Reaction Status Date / Time No Known Allergies Allergy Verified 07/01/17 02:14 Home Medications: Ambulatory Orders Albuterol 2.5/Ipratropium 0.5 [Duoneb -] 1 neb NEB Q4H PRN #180 amp 05/03/17 Amlodipine Besylate [Norvasc -] 10 mg PO DAILY #30 tab 05/03/17 Atorvastatin Ca [Lipitor] 10 mg PO HS #30 tab 05/03/17 Cefuroxime Axetil [Ceftin -] 500 mg PO BID #6 tablet 05/03/17 Dapagliflozin Propanediol [Farxiga] 10 mg PO DAILY #30 tab 05/03/17 Doxycycline Hyclate [Vibramycin -] 100 mg PO BID@1000,1800 #6 cap 05/03/17 Furosemide [Lasix -] 40 mg PO DAILY #30 tab 05/03/17 Insulin (Levemir) [Levemir Flexpen -] 50 units SQ BID 30 Days each 05/03/17 Linaclotide [Linzess] 145 mcg PO DAILY #30 cap 05/03/17 Lisinopril [Prinivil] 40 mg PO DAILY #30 tablet 05/03/17 Metoprolol Tartrate [Lopressor -] 50 mg PO BID #30 tablet 05/03/17 Montelukast Na [Singulair -] 10 mg PO HS #30 tab 05/03/17 Nystatin Oral Suspension - [Nystatin Oral Susp 978731 Units/5 ML -] 500,000 units PO Q6HPO 10 Days ml 05/03/17 Prednisone [Deltasone -] 40 mg PO DAILY #32 tablet 05/03/17 Spironolactone [Aldactone -] 25 mg PO DAILY #30 tablet 05/03/17 Asthma: Yes Diabetes: Yes HTN: Yes Hypercholesterolemia: Yes - Surgical History Cholecystectomy: Yes - Suicide/Smoking/Psychosocial Hx Smoking History: Unknown if ever smoked Have you smoked in the past 12 months: Yes Number of Cigarettes Smoked Daily: 8 If you are a former smoker, when did you quit?: 1 month ago Information on smoking cessation initiated: No 'Breaking Loose' booklet given: 04/26/17 Hx Alcohol Use: No Drug/Substance Use Hx: No Substance Use Type: None Hx Substance Use Treatment: No Review of Systems GENERAL/CONSTITUTIONAL: No fever or chills. No weakness. HEAD, EYES, EARS, NOSE AND THROAT: No change in vision. No sore throat. CARDIOVASCULAR: No chest pain. Positive for shortness of breath RESPIRATORY: Positive for cough and wheezing. Negative for hemoptysis. GASTROINTESTINAL: No nausea, vomiting, diarrhea or constipation. GENITOURINARY: No dysuria, frequency, or change in urination. MUSCULOSKELETAL: No joint or muscle swelling or pain. No neck or back pain. SKIN: No rash NEUROLOGIC: No headache, vertigo, loss of consciousness, or change in strength/ sensation. ENDOCRINE: No increased thirst. No abnormal weight change HEMATOLOGIC/LYMPHATIC: No anemia, easy bleeding, or history of blood clots. Positive for history of polycythemia. ALLERGIC/IMMUNOLOGIC: No hives or skin allergy. *Physical Exam - Vital Signs Last Vital Signs Temp Pulse Resp BP Pulse Ox 97.9 F 104 H 28 H 122/78 98 07/01/17 02:14 07/01/17 02:14 07/01/17 02:14 07/01/17 02:14 07/01/17 02:14 GENERAL: Somnolent but in no acute distress HEAD: No signs of trauma, normocephalic, atraumatic EYES: PERRLA, EOMI, sclera anicteric, conjunctiva clear ENT: Auricles normal inspection, hearing grossly normal, nares patent, oropharynx clear without exudates. Moist mucosa NECK: Normal ROM, supple, no lymphadenopathy, JVD, or masses LUNGS: No distress, speaks full sentences, scattered wheezes bilaterally HEART: Regular rate and rhythm, normal S1 and S2, no murmurs, rubs or gallops, peripheral pulses normal and equal bilaterally. ABDOMEN: Soft, nontender, normoactive bowel sounds. No guarding, no rebound. No masses EXTREMITIES: Normal inspection, Normal range of motion, no edema. No clubbing or cyanosis. NEUROLOGICAL: Cranial nerves II through XII grossly intact. Normal speech, no focal sensorimotor deficits, somnolent, not following complex commands SKIN: Warm, Dry, normal turgor, no rashes or lesions noted. CBCD WBC 7.8 K/mm3 (4.0-10.0) 07/01/17 09:25 RBC 5.43 M/mm3 (3.60-5.2) H 07/01/17 09:25 Hgb 15.9 GM/dL (10.7-15.3) H 07/01/17 09:25 Hct 49.6 % (32.4-45.2) H 07/01/17 09:25 MCV 91.3 fl (80-96) 07/01/17 09:25 MCHC 32.1 g/dl (32.0-36.0) 07/01/17 09:25 RDW 16.7 % (11.6-15.6) H 07/01/17 09:25 Plt Count 287 K/MM3 (134-434) 07/01/17 09:25 MPV 8.0 fl (7.5-11.1) 07/01/17 09:25 CMP Sodium 140 mmol/L (136-145) 07/01/17 09:25 Potassium 3.7 mmol/L (3.5-5.1) 07/01/17 09:25 Chloride 105 mmol/L (98-107) 07/01/17 09:25 Carbon Dioxide 29 mmol/L (21-32) 07/01/17 09:25 Anion Gap 6 (8-16) L 07/01/17 09:25 BUN 12 mg/dL (7-18) 07/01/17 09:25 Creatinine 0.9 mg/dL (0.55-1.02) 07/01/17 09:25 Creat Clearance w eGFR 51.38 (>60) 07/01/17 03:23 Calcium 8.6 mg/dL (8.5-10.1) 07/01/17 09:25 Total Bilirubin 0.2 mg/dL (0.2-1.0) D 07/01/17 03:23 AST 13 U/L (15-37) L D 07/01/17 03:23 ALT 24 U/L (12-78) D 07/01/17 03:23 Alkaline Phosphatase 203 U/L (45-117) H 07/01/17 03:23 Total Protein 6.7 g/dl (6.4-8.2) 07/01/17 03:23 Albumin 3.1 g/dl (3.4-5.0) L 07/01/17 03:23 - RADIOLOGY CT head completed and reviewed Medical Decision Making 57F with history of HTN, IDDM, Asthma/COPD, CHF and polycythemia here today complaining of shortness of breath after inhaling chemicals from a bug bomb. Paramedics report that she was exposed to tetramethrin and cypermethrin. Patient reports associated cough, wheezing, back pain and foot pain after exposure. She denies feeling ill before exposure. Denies chest pain, changes in vision, rhinorrhea, nausea, vomiting, and confusion. Paramedics report that her lungs were clear with normal vital signs when they arrived. Given albuterol and fluids in the field. She was admitted to the hospital and CT head completed, reviewed images and report. Radiologist suggested MRI brain which was ordered. She is on telemetry monitoring and is somnolent but arousable. When awoken follows commands in [place]. No focal deficits and able to move all extremities grossly. Does not maintain awakeness but was following basic comands. AMS and Toxic metabolic encephalopahthy Ammonia level pending Follow up MRI brain Continue tele monitoring in ICU Maintain adequate hydration, may not be taking PO at this time Caution for aspiriation Monitor respiratory status as tetramethrin and cypermethrin can cause immediate respiratory reactions Hyperglycemic, continue Tx of MD, tight glycemic control Monitor CHF status, consider cardiology follow up Blood pressure control, maintain < 140/90 Continue anti-HTN medication DVT ppx as patient not ambulatory
[2017-07-01] MEDS: ALBUTEROL SO4 2.5/IPRATROPIUM 0.5 INH SOL 3 ML VIAL.NEB. NEB PRN (12:02)
[2017-07-01] MEDS: INSULIN SLIDING SCALE (NOVOLOG) 1 VIAL SQ SCH ×4 (12:03→22:33)
[2017-07-01 12:50] VITALS: BMI 38.3
[2017-07-01] MEDS: MONTELUKAST NA 10 MG TABLET PO SCH ×2 (13:00→21:45)
--- NOTE | 2017-07-01 13:06 | CON.NEP ---
Consult Consult Specialty:: nephrology Referred by:: dr rojas Reason for Consultation:: conner - History of Present Illness Chief Complaint: acute sob History of Present Illness: multiple medical problems including copd admitted with acute sob after exposure to bug spray PMHx noted dm, htn, hf, erythrocytosis - Past Medical History Cardio/Vascular: Yes: HTN, Hyperlipdemia, Other. No: AFIB, CAD Pulmonary: Yes: Asthma, COPD. No: Pulmonary Embolus Gastrointestinal: Yes: GERD. No: Cancer Endocrine: Yes: Diabetes Mellitus - Alcohol/Substance Use Hx Alcohol Use: No - Smoking History Smoking history: Former smoker Have you smoked in the past 12 months: Yes Aproximately how many cigarettes per day: 4 If you are a former smoker, when did you quit?: 1 month ago Home Medications - Allergies Allergies/Adverse Reactions: Allergies Allergy/AdvReac Type Severity Reaction Status Date / Time No Known Allergies Allergy Verified 07/01/17 02:14 - Home Medications Home Medications: Ambulatory Orders Albuterol 2.5/Ipratropium 0.5 [Duoneb -] 1 neb NEB Q4H PRN #180 amp 05/03/17 Amlodipine Besylate [Norvasc -] 10 mg PO DAILY #30 tab 05/03/17 Atorvastatin Ca [Lipitor] 10 mg PO HS #30 tab 05/03/17 Cefuroxime Axetil [Ceftin -] 500 mg PO BID #6 tablet 05/03/17 Dapagliflozin Propanediol [Farxiga] 10 mg PO DAILY #30 tab 05/03/17 Doxycycline Hyclate [Vibramycin -] 100 mg PO BID@1000,1800 #6 cap 05/03/17 Furosemide [Lasix -] 40 mg PO DAILY #30 tab 05/03/17 Insulin (Levemir) [Levemir Flexpen -] 50 units SQ BID 30 Days each 05/03/17 Linaclotide [Linzess] 145 mcg PO DAILY #30 cap 05/03/17 Lisinopril [Prinivil] 40 mg PO DAILY #30 tablet 05/03/17 Metoprolol Tartrate [Lopressor -] 50 mg PO BID #30 tablet 05/03/17 Montelukast Na [Singulair -] 10 mg PO HS #30 tab 05/03/17 Nystatin Oral Suspension - [Nystatin Oral Susp 148683 Units/5 ML -] 500,000 units PO Q6HPO 10 Days ml 05/03/17 Prednisone [Deltasone -] 40 mg PO DAILY #32 tablet 05/03/17 Spironolactone [Aldactone -] 25 mg PO DAILY #30 tablet 05/03/17 Review of Systems - Review of Systems Constitutional: reports: No Symptoms Respiratory: reports: SOB Nephrology Consult - Height Height: 5 ft 3 in - Weight Weight: 216 lb 7.903 oz - BMI Body Mass Index (BMI): 38.3 - Lab Results CBC,BMP: CBC, BMP 07/01/17 09:25 07/01/17 09:25 Anion Gap: Anion Gap Anion Gap 6 (8-16) L 07/01/17 09:25 - Physical Examination Vital Signs: Vital Signs Temperature 98.6 F 07/01/17 12:00 Pulse Rate 100 H 07/01/17 12:54 Respiratory Rate 15 07/01/17 12:54 Blood Pressure 126/86 07/01/17 12:54 O2 Sat by Pulse Oximetry (%) 95 07/01/17 12:30 Constitutional: Yes: Well Nourished Eyes: Yes: WNL, Conjunctiva Clear, EOM Intact HENT: Yes: WNL, Atraumatic, Normocephalic Neck: Yes: WNL, Supple, Trachea Midline Cardiovascular: Yes: WNL, Regular Rate and Rhythm Respiratory: Yes: WNL, Regular, CTA Bilaterally Gastrointestinal: Yes: WNL, Normal Bowel Sounds Renal/: Yes: WNL Extremities: Yes: WNL Integumentary: Yes: WNL Neurological: Yes: WNL, Alert, Oriented Psychiatric: Yes: WNL, Alert, Oriented Assessment/Plan CONNER secondary to prerenal factors related to acute illness serum creatinine 1.1 now coming down to 0.9 conner seems to be resolving Bronchospasm/smoker/underlying obstructive lung disease- s/p exposure to airway irritant h/o HTN DM HF Erythrocytosis Plan- follow renal function in labs tomorrow
[2017-07-01] MEDS: methylPREDNISolone NA SUCC 40 MG/1 ML VIAL IVPUSH SCH (21:40)
[2017-07-02] MEDS: FUROSEMIDE 40 MG/4 ML INJECTABLE VIAL IVPUSH SCH ×2 (06:00→15:53)
[2017-07-02] MEDS: methylPREDNISolone NA SUCC 40 MG/1 ML VIAL IVPUSH SCH ×4 (06:03→21:24)
[2017-07-02] MEDS: INSULIN SLIDING SCALE (NOVOLOG) 1 VIAL SQ SCH ×4 (06:14→21:26)
[2017-07-02 06:34] LABS: ANION GAP 8 (8-16); CALCIUM 8.7 mg/dL (8.5-10.1); CO2 24 mmol/L (21-32); CREATININE 0.9 mg/dL (0.55-1.02); GLUCOSE,RANDOM 260 mg/dL (74-106)
[2017-07-02] MEDS: INSULIN DETEMIR 100 UNITS/ML MDV SQ SCH ×2 (07:06→18:02)
[2017-07-02] MEDS: SPIRONOLACTONE 25 MG TABLET (FP) PO SCH (10:02)
[2017-07-02] MEDS: METOPROLOL TARTRATE 50 MG TABLET (FP) PO SCH ×2 (10:02→21:26)
[2017-07-02] MEDS: amLODIPine BESYLATE 5 MG TABLET (FP) PO SCH (10:02)
[2017-07-02] MEDS: HEPARIN NA (PORCINE) 5,000 UNITS/ML 1ML VIAL SQ SCH ×2 (10:02→21:24)
[2017-07-02] MEDS: ALBUTEROL SO4 2.5/IPRATROPIUM 0.5 INH SOL 3 ML VIAL.NEB. NEB PRN (10:58)
--- NOTE | 2017-07-02 11:08 | PN ---
Progress Note, Physician Chief Complaint: AWAKE ALERT, FAMILY BEDSIDE C/O DIZZINESS UNSTEADY GAIT - Current Medication List Current Medications: Active Medications Acetaminophen (Tylenol -) 650 mg PO Q6H PRN PRN Reason: FEVER OR PAIN Albuterol/Ipratropium (Duoneb -) 1 amp NEB Q6H PRN PRN Reason: SHORTNESS OF BREATH Last Admin: 07/02/17 10:58 Dose: 1 amp Amlodipine Besylate (Norvasc -) 5 mg PO DAILY [facility] Last Admin: 07/02/17 10:02 Dose: 5 mg Atorvastatin Calcium (Lipitor -) 10 mg PO HS [facility] Last Admin: 07/01/17 21:48 Dose: 10 mg Furosemide (Lasix Injection -) 40 mg IVPUSH BID@0600,1400 [facility] Last Admin: 07/02/17 06:00 Dose: 40 mg Heparin Sodium (Porcine) (Heparin -) 5,000 unit SQ BID [facility] Last Admin: 07/02/17 10:02 Dose: 5,000 unit Insulin Aspart (Novolog Vial Sliding Scale -) 1 vial SQ ACHS [facility] PRN Reason: Protocol Last Admin: 07/02/17 06:14 Dose: 4 units Insulin Detemir (Levemir Vial) 25 units SQ BIDAC [facility] Last Admin: 07/02/17 07:06 Dose: 25 unit Methylprednisolone Sodium Succinate (Solu-Medrol -) 40 mg IVPUSH Q6H-IV [facility] Last Admin: 07/02/17 10:01 Dose: 40 mg Metoprolol Tartrate (Lopressor -) 50 mg PO BID [facility] Last Admin: 07/02/17 10:02 Dose: 50 mg Montelukast Sodium (Singulair -) 10 mg PO HS [facility] Last Admin: 07/01/17 21:45 Dose: 10 mg Spironolactone (Aldactone -) 25 mg PO DAILY [facility] Last Admin: 07/02/17 10:02 Dose: 25 mg - Objective Vital Signs: Vital Signs Temperature 98 F 07/02/17 09:59 Pulse Rate 104 H 07/02/17 09:59 Respiratory Rate 20 07/02/17 09:59 Blood Pressure 120/79 07/02/17 09:59 O2 Sat by Pulse Oximetry (%) 95 07/02/17 09:00 Constitutional: Yes: Mild Distress Eyes: Yes: WNL HENT: Yes: WNL Neck: Yes: WNL Cardiovascular: Yes: WNL Respiratory: Yes: WNL Gastrointestinal: Yes: WNL Genitourinary: Yes: WNL Musculoskeletal: Yes: Back Pain, Muscle Weakness Extremities: Yes: WNL Edema: No Peripheral Pulses WNL: Yes Integumentary: Yes: WNL Wound/Incision: Yes: Clean/Dry Neurological: Yes: Pre-Existing Deficit ...Motor Strength: WNL Psychiatric: Yes: Other Labs: CBC, BMP 07/01/17 09:25 07/02/17 05:50 Problem List - Problems (1) Diabetes 1.5, managed as type 1 Code(s): E10.9 - TYPE 1 DIABETES MELLITUS WITHOUT COMPLICATIONS (2) Shortness of breath Code(s): R06.02 - SHORTNESS OF BREATH (3) CHF (congestive heart failure) Code(s): I50.9 - HEART FAILURE, UNSPECIFIED Qualifiers: Congestive heart failure type: unspecified congestive heart failure type Congestive heart failure chronicity: acute on chronic Qualified Code(s): I50.9 - Heart failure, unspecified (4) COPD exacerbation Code(s): J44.1 - CHRONIC OBSTRUCTIVE PULMONARY DISEASE W (ACUTE) EXACERBATION (5) Cardiomyopathy Code(s): I42.9 - CARDIOMYOPATHY, UNSPECIFIED Qualifiers: Cardiomyopathy type: unspecified Qualified Code(s): I42.9 - Cardiomyopathy , unspecified (6) HTN (hypertension) Code(s): I10 - ESSENTIAL (PRIMARY) HYPERTENSION Qualifiers: Hypertension type: essential hypertension Qualified Code(s): I10 - Essential (primary) hypertension (7) Lethargy Code(s): R53.83 - OTHER FATIGUE (8) Toxic metabolic encephalopathy Code(s): G92 - TOXIC ENCEPHALOPATHY Assessment/Plan NEUROLOGY WORKUP FOR MS RULE OUT OR OTHER NEUROLOGICAL MANIFESTATION WILL NEED STRICT DIABETIC CONTROL [facility] FOR SHORT STAY OOB TO CHAIR WITH ASSIST FALL RISK PRECAUTIONS PSYCHOLOGY EVAL
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
--- NOTE | 2017-07-02 12:12 | CON.PSY ---
Psychiatry Consult Chief Complaint: 57 yr old female with COPD and other chronic medical conditions admitted after expoeuru to some chemiocals. swhe has a history of non compliane with tratyment.Patient being ecavulated forvMS. Sjhe reports to have seen a psychqaitrist some time ago and hjaving taken some meds. She is not able to remember the meds at this time Reportts ghanshyam quesada is iok Mentally now. Symptoms: reports: Impaired Concentration - Previous Psychiatric Treatment Outpatient: More than 6 mos ago Inpatient: None - Previous Substance Abuse Treatment Outpatient: None Inpatient: None - Current Medications Current Medications: Active Medications Acetaminophen (Tylenol -) 650 mg PO Q6H PRN PRN Reason: FEVER OR PAIN Albuterol/Ipratropium (Duoneb -) 1 amp NEB Q6H PRN PRN Reason: SHORTNESS OF BREATH Last Admin: 07/02/17 10:58 Dose: 1 amp Amlodipine Besylate (Norvasc -) 5 mg PO DAILY [facility] Last Admin: 07/02/17 10:02 Dose: 5 mg Atorvastatin Calcium (Lipitor -) 10 mg PO HS [facility] Last Admin: 07/01/17 21:48 Dose: 10 mg Furosemide (Lasix Injection -) 40 mg IVPUSH BID@0600,1400 [facility] Last Admin: 07/02/17 06:00 Dose: 40 mg Heparin Sodium (Porcine) (Heparin -) 5,000 unit SQ BID [facility] Last Admin: 07/02/17 10:02 Dose: 5,000 unit Insulin Aspart (Novolog Vial Sliding Scale -) 1 vial SQ ACHS [facility] PRN Reason: Protocol Last Admin: 07/02/17 06:14 Dose: 4 units Insulin Detemir (Levemir Vial) 25 units SQ BIDAC [facility] Last Admin: 07/02/17 07:06 Dose: 25 unit Methylprednisolone Sodium Succinate (Solu-Medrol -) 40 mg IVPUSH Q6H-IV [facility] Stop: 07/03/17 23:59 Last Admin: 07/02/17 10:01 Dose: 40 mg Metoprolol Tartrate (Lopressor -) 50 mg PO BID [facility] Last Admin: 07/02/17 10:02 Dose: 50 mg Montelukast Sodium (Singulair -) 10 mg PO HS [facility] Last Admin: 07/01/17 21:45 Dose: 10 mg Spironolactone (Aldactone -) 25 mg PO DAILY [facility] Last Admin: 07/02/17 10:02 Dose: 25 mg - Allergies Allergies: Allergies Allergy/AdvReac Type Severity Reaction Status Date / Time No Known Allergies Allergy Verified 07/01/17 02:14 - Current Living Status Usual Living Arrangement: Alone - Current Mental Status Evaluation Appearance: Well Groomed Attitude: Cooperative - Affect Affect: Constrictive Appropriateness: Appropriate to Content - Mood Mood: Euthymic - Speech/Language Expressive: Coherent - Psychomotor Activity Psychomotor Activity: Normal - Thought Process Thought Process: Intact - Thought Content Hallucinations: Absent Delusions: Absent - Self Perception Self Perception: No Impairment - Cognition Attention: Alert Orientation: Time Memory, Immediate Recall: Intact Memory, Short Term: 2/3 Memory, Remote with Promptin/3 - Concentration Serial Sevens Intact: No Simple Calculations Intact: No - Abstraction Proverb Interpretation: Intact Judgement: Minimally Impaired - Insight Insight: Intact - Impulse Control Impulse Control: Minimally Impaired - Suicidal Ideation Suicidal Ideation: No - Homicidal Ideation Homicidal Ideation: No Assessment/Plan 1) No evidence ofv any acute Psych issues at this time./2) No need for Psych meds at this time./ 3) Will follow.
[2017-07-02] MEDS ORDERED: INSULIN (NOVOLOG) ASPART 100 UNITS/ML 10ML VIAL ONE (12:17)
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
--- NOTE | 2017-07-02 17:38 | PN ---
Progress Note (short form) - Note Progress Note: conner copd htn dm hf erythrocytosis Current Medications Acetaminophen (Tylenol -) 650 mg PO Q6H PRN PRN Reason: FEVER OR PAIN Albuterol/Ipratropium (Duoneb -) 1 amp NEB Q6H PRN PRN Reason: SHORTNESS OF BREATH Last Admin: 07/02/17 10:58 Dose: 1 amp Amlodipine Besylate (Norvasc -) 5 mg PO DAILY [facility] Last Admin: 07/02/17 10:02 Dose: 5 mg Atorvastatin Calcium (Lipitor -) 10 mg PO HS [facility] Last Admin: 07/01/17 21:48 Dose: 10 mg Furosemide (Lasix Injection -) 40 mg IVPUSH BID@0600,1400 [facility] Last Admin: 07/02/17 15:53 Dose: 40 mg Heparin Sodium (Porcine) (Heparin -) 5,000 unit SQ BID [facility] Last Admin: 07/02/17 10:02 Dose: 5,000 unit Insulin Aspart (Novolog Vial Sliding Scale -) 1 vial SQ ACHS [facility] PRN Reason: Protocol Last Admin: 07/02/17 12:00 Dose: 10 units Insulin Detemir (Levemir Vial) 25 units SQ BIDAC [facility] Last Admin: 07/02/17 07:06 Dose: 25 unit Methylprednisolone Sodium Succinate (Solu-Medrol -) 40 mg IVPUSH Q6H-IV [facility] Stop: 07/03/17 23:59 Last Admin: 07/02/17 15:54 Dose: 40 mg Metoprolol Tartrate (Lopressor -) 50 mg PO BID [facility] Last Admin: 07/02/17 10:02 Dose: 50 mg Montelukast Sodium (Singulair -) 10 mg PO HS [facility] Last Admin: 07/01/17 21:45 Dose: 10 mg Spironolactone (Aldactone -) 25 mg PO DAILY [facility] Last Admin: 07/02/17 10:02 Dose: 25 mg Last Vital Signs Temp Pulse Resp BP Pulse Ox 98.5 F 104 H 20 123/84 95 07/02/17 14:00 07/02/17 09:59 07/02/17 14:00 07/02/17 14:00 07/02/17 09:00 Lungs clear Heart reg Abd soft ext no edema CBC, BMP 07/01/17 09:25 07/02/17 05:50 CONNER secondary to prerenal factors related to acute illness serum creatinine 1.1 now coming down to 0.9 conner resolved Bronchospasm/smoker/underlying obstructive lung disease- s/p exposure to airway irritant h/o HTN DM HF Erythrocytosis Plan- follow renal function in labs tomorrow
[2017-07-02] MEDS: MONTELUKAST NA 10 MG TABLET PO SCH (21:25)
[2017-07-02] MEDS: ATORVASTATIN CA 10 MG TABLET (FP) PO SCH (21:25)
[2017-07-03] MEDS: methylPREDNISolone NA SUCC 40 MG/1 ML VIAL IVPUSH SCH ×4 (02:16→22:28)
[2017-07-03] MEDS ORDERED: INSULIN (NOVOLOG) ASPART 100 UNITS/ML 10ML VIAL ONE ×2 (05:36→11:52)
[2017-07-03] MEDS: FUROSEMIDE 40 MG/4 ML INJECTABLE VIAL IVPUSH SCH ×2 (06:18→14:52)
[2017-07-03] MEDS: INSULIN DETEMIR 100 UNITS/ML MDV SQ SCH ×2 (06:18→18:17)
[2017-07-03] MEDS: INSULIN SLIDING SCALE (NOVOLOG) 1 VIAL SQ SCH ×4 (06:19→22:28)
--- NOTE | 2017-07-03 09:08 | PN ---
Progress Note, Physician History of Present Illness: c/o feeling dizzy and off balance - Current Medication List Current Medications: Active Medications Acetaminophen (Tylenol -) 650 mg PO Q6H PRN PRN Reason: FEVER OR PAIN Albuterol/Ipratropium (Duoneb -) 1 amp NEB Q6H PRN PRN Reason: SHORTNESS OF BREATH Last Admin: 07/02/17 10:58 Dose: 1 amp Amlodipine Besylate (Norvasc -) 5 mg PO DAILY [facility] Last Admin: 07/02/17 10:02 Dose: 5 mg Atorvastatin Calcium (Lipitor -) 10 mg PO HS [facility] Last Admin: 07/02/17 21:25 Dose: 10 mg Furosemide (Lasix Injection -) 40 mg IVPUSH BID@0600,1400 [facility] Last Admin: 07/03/17 06:18 Dose: 40 mg Heparin Sodium (Porcine) (Heparin -) 5,000 unit SQ BID [facility] Last Admin: 07/02/17 21:24 Dose: 5,000 unit Insulin Aspart (Novolog Vial Sliding Scale -) 1 vial SQ ACHS [facility] PRN Reason: Protocol Last Admin: 07/03/17 06:19 Dose: 6 units Insulin Detemir (Levemir Vial) 25 units SQ BIDAC [facility] Last Admin: 07/03/17 06:18 Dose: 25 unit Methylprednisolone Sodium Succinate (Solu-Medrol -) 40 mg IVPUSH Q6H-IV [facility] Stop: 07/03/17 23:59 Last Admin: 07/03/17 02:16 Dose: 40 mg Metoprolol Tartrate (Lopressor -) 50 mg PO BID [facility] Last Admin: 07/02/17 21:26 Dose: 50 mg Montelukast Sodium (Singulair -) 10 mg PO HS [facility] Last Admin: 07/02/17 21:25 Dose: 10 mg Spironolactone (Aldactone -) 25 mg PO DAILY [facility] Last Admin: 07/02/17 10:02 Dose: 25 mg - Objective Vital Signs: Vital Signs Temperature 97.7 F 07/03/17 05:54 Pulse Rate 80 07/03/17 05:54 Respiratory Rate 20 07/03/17 08:24 Blood Pressure 138/99 07/03/17 05:54 O2 Sat by Pulse Oximetry (%) 95 07/02/17 22:00 Cardiovascular: Yes: S1, S2 Respiratory: Yes: Regular, CTA Bilaterally Gastrointestinal: Yes: Normal Bowel Sounds, Soft. No: Tenderness Edema: No Labs: CBC, BMP 07/01/17 09:25 07/02/17 05:50 Problem List - Problems (1) Diabetes 1.5, managed as type 1 Assessment/Plan: continue with insulin--levemir and sliding scale a1c monitor bgm endo consult Code(s): E10.9 - TYPE 1 DIABETES MELLITUS WITHOUT COMPLICATIONS (2) Multiple sclerosis Assessment/Plan: must rule out with pt s/s mri with contrast neuro follow up Code(s): G35 - MULTIPLE SCLEROSIS (3) CHF (congestive heart failure) Assessment/Plan: on iv lASIX F/U CXR Code(s): I50.9 - HEART FAILURE, UNSPECIFIED Qualifiers: Congestive heart failure type: unspecified congestive heart failure type Congestive heart failure chronicity: acute on chronic Qualified Code(s): I50.9 - Heart failure, unspecified (4) COPD exacerbation Assessment/Plan: STEROID TAPER PER PULM NEBS Code(s): J44.1 - CHRONIC OBSTRUCTIVE PULMONARY DISEASE W (ACUTE) EXACERBATION (5) Pneumonia Assessment/Plan: IV ABX ID CONSULT CXR Code(s): J18.9 - PNEUMONIA, UNSPECIFIED ORGANISM
--- NOTE | 2017-07-03 09:22 | PN ---
Progress Note (short form) - Note Progress Note: Neurology History of Present Illness Patient is a 57F with history of HTN, IDDM, Asthma/COPD, CHF and presented for shortness of breath after inhaling chemicals from a bug bomb. Paramedics reported that she was exposed to tetramethrin and cypermethrin. Patient reports associated cough, wheezing, back pain and foot pain after exposure. She denies feeling ill before exposure. She was admitted to the hospital and CT head completed, reviewed images and report. Radiologist suggested MRI brain which was completed and showed extensive white matter changes. She is on telemetry monitoring and more arousable now. No focal deficits and more interactive at this time. Active Medications Acetaminophen (Tylenol -) 650 mg PO Q6H PRN PRN Reason: FEVER OR PAIN Albuterol/Ipratropium (Duoneb -) 1 amp NEB Q6H PRN PRN Reason: SHORTNESS OF BREATH Last Admin: 07/02/17 10:58 Dose: 1 amp Amlodipine Besylate (Norvasc -) 5 mg PO DAILY [facility] Last Admin: 07/02/17 10:02 Dose: 5 mg Atorvastatin Calcium (Lipitor -) 10 mg PO HS [facility] Last Admin: 07/02/17 21:25 Dose: 10 mg Furosemide (Lasix Injection -) 40 mg IVPUSH BID@0600,1400 [facility] Last Admin: 07/03/17 06:18 Dose: 40 mg Heparin Sodium (Porcine) (Heparin -) 5,000 unit SQ BID [facility] Last Admin: 07/02/17 21:24 Dose: 5,000 unit Insulin Aspart (Novolog Vial Sliding Scale -) 1 vial SQ ACHS [facility] PRN Reason: Protocol Last Admin: 07/03/17 06:19 Dose: 6 units Insulin Detemir (Levemir Vial) 25 units SQ BIDAC [facility] Last Admin: 07/03/17 06:18 Dose: 25 unit Methylprednisolone Sodium Succinate (Solu-Medrol -) 40 mg IVPUSH Q6H-IV [facility] Stop: 07/03/17 23:59 Last Admin: 07/03/17 02:16 Dose: 40 mg Metoprolol Tartrate (Lopressor -) 50 mg PO BID [facility] Last Admin: 07/02/17 21:26 Dose: 50 mg Montelukast Sodium (Singulair -) 10 mg PO HS [facility] Last Admin: 07/02/17 21:25 Dose: 10 mg Spironolactone (Aldactone -) 25 mg PO DAILY [facility] Last Admin: 07/02/17 10:02 Dose: 25 mg *Physical Exam Vital Signs Temperature 97.7 F 07/03/17 05:54 Pulse Rate 80 07/03/17 05:54 Respiratory Rate 20 07/03/17 08:24 Blood Pressure 138/99 07/03/17 05:54 O2 Sat by Pulse Oximetry (%) 95 07/02/17 22:00 GENERAL: Somnolent but in no acute distress HEAD: No signs of trauma, normocephalic, atraumatic EYES: PERRLA, EOMI, sclera anicteric, conjunctiva clear ENT: Auricles normal inspection, hearing grossly normal, nares patent, oropharynx clear without exudates. Moist mucosa NECK: Normal ROM, supple, no lymphadenopathy, JVD, or masses LUNGS: No distress, speaks full sentences, scattered wheezes bilaterally HEART: Regular rate and rhythm, normal S1 and S2, no murmurs, rubs or gallops, peripheral pulses normal and equal bilaterally. ABDOMEN: Soft, nontender, normoactive bowel sounds. No guarding, no rebound. No masses EXTREMITIES: Normal inspection, Normal range of motion, no edema. No clubbing or cyanosis. NEUROLOGICAL: Cranial nerves II through XII grossly intact. Normal speech, no focal sensorimotor deficits, somnolent, not following complex commands SKIN: Warm, Dry, normal turgor, no rashes or lesions noted. CBC,CMP WBC 7.8 K/mm3 (4.0-10.0) 07/01/17 09:25 RBC 5.43 M/mm3 (3.60-5.2) H 07/01/17 09:25 Hgb 15.9 GM/dL (10.7-15.3) H 07/01/17 09:25 Hct 49.6 % (32.4-45.2) H 07/01/17 09:25 MCV 91.3 fl (80-96) 07/01/17 09:25 MCH 29.3 pg (25.7-33.7) 07/01/17 09:25 MCHC 32.1 g/dl (32.0-36.0) 07/01/17 09:25 RDW 16.7 % (11.6-15.6) H 07/01/17 09:25 Plt Count 287 K/MM3 (134-434) 07/01/17 09:25 MPV 8.0 fl (7.5-11.1) 07/01/17 09:25 Neutrophils % 66.5 % (42.8-82.8) D 07/01/17 03:23 Lymphocytes % 22.2 % (8-40) D 07/01/17 03:23 Monocytes % 9.4 % (3.8-10.2) D 07/01/17 03:23 Eosinophils % 1.2 % (0-4.5) D 07/01/17 03:23 Basophils % 0.7 % (0-2.0) 07/01/17 03:23 Sodium 139 mmol/L (136-145) 07/02/17 05:50 Potassium 4.8 mmol/L (3.5-5.1) D 07/02/17 05:50 Chloride 107 mmol/L (98-107) 07/02/17 05:50 Carbon Dioxide 24 mmol/L (21-32) 07/02/17 05:50 Anion Gap 8 (8-16) 07/02/17 05:50 BUN 17 mg/dL (7-18) D 07/02/17 05:50 Creatinine 0.9 mg/dL (0.55-1.02) 07/02/17 05:50 Creat Clearance w eGFR 51.38 (>60) 07/01/17 03:23 POC Glucometer 323 UNITS (80-120) 07/03/17 05:26 Random Glucose 260 mg/dL (74-106) H 07/02/17 05:50 Calcium 8.7 mg/dL (8.5-10.1) 07/02/17 05:50 Total Bilirubin 0.2 mg/dL (0.2-1.0) D 07/01/17 03:23 AST 13 U/L (15-37) L D 07/01/17 03:23 ALT 24 U/L (12-78) D 07/01/17 03:23 Alkaline Phosphatase 203 U/L (45-117) H 07/01/17 03:23 Ammonia 31.26 umol/L (11-32) 07/01/17 09:25 B-Natriuretic Peptide 260.92 pg/ml (5-125) H 07/01/17 09:25 Total Protein 6.7 g/dl (6.4-8.2) 07/01/17 03:23 Albumin 3.1 g/dl (3.4-5.0) L 07/01/17 03:23 - RADIOLOGY CT head completed and reviewed MRI brain completed and reviewed Medical Decision Making 57F with history of HTN, IDDM, Asthma/COPD, CHF and presented for shortness of breath after inhaling chemicals from a bug bomb. Paramedics reported that she was exposed to tetramethrin and cypermethrin. Patient reports associated cough, wheezing, back pain and foot pain after exposure. She denies feeling ill before exposure. She was admitted to the hospital and CT head completed, reviewed images and report. Radiologist suggested MRI brain which was completed and showed extensive white matter changes. She is on telemetry monitoring and more arousable now. No focal deficits and more interactive at this time. MRI brain reviewed, white matter changes noted Does not have signs of demylination Post contrast imaging mentioned, can be done as outpatient Maintain adequate hydration Caution for aspiriation Monitor respiratory status as tetramethrin and cypermethrin can cause immediate respiratory reactions Hyperglycemic, continue Tx of MD, tight glycemic control Monitor CHF status, consider cardiology follow up Blood pressure control, maintain < 140/90 Continue anti-HTN medication DVT ppx as patient not ambulatory
--- NOTE | 2017-07-03 09:56 | EKG ---
Test Reason : Blood Pressure : / mmHG Vent. Rate : 100 BPM Atrial Rate : 100 BPM P-R Int : 152 ms QRS Dur : 098 ms QT Int : 392 ms P-R-T Axes : 057 124 079 degrees QTc Int : 505 ms NORMAL SINUS RHYTHM POSSIBLE LEFT ATRIAL ENLARGEMENT RIGHT AXIS DEVIATION PROLONGED QT ABNORMAL ECG WHEN COMPARED WITH ECG OF 26-APR-2017 10:53, NO SIGNIFICANT CHANGE WAS FOUND Confirmed by OKSANA MANSFIELD, MEGAN ([id number]) on 07/03/2017 9:56:20 AM Referred By: Confirmed By:MEGAN GANDHI MD
[2017-07-03 10:20] LABS: BASOPHIL 0.2 % (0-2.0); MCH 29.1 pg (25.7-33.7); MCHC 31.9 g/dl (32.0-36.0); MEAN CELL VOLUME 91.1 fl (80-96); MEAN PLT VOLUME 8.2 fl (7.5-11.1); NEUTROPHILS 92.6 % (42.8-82.8); PLATELET COUNT 314 K/MM3 (134-434); RDW 16.5 % (11.6-15.6); WHITE BLOOD COUNT 18.4 K/mm3 (4.0-10.0)
[2017-07-03] MEDS: ALBUTEROL SO4 2.5/IPRATROPIUM 0.5 INH SOL 3 ML VIAL.NEB. NEB PRN (10:35)
[2017-07-03] MEDS: amLODIPine BESYLATE 5 MG TABLET (FP) PO SCH (10:48)
[2017-07-03] MEDS: SPIRONOLACTONE 25 MG TABLET (FP) PO SCH (10:48)
[2017-07-03] MEDS: METOPROLOL TARTRATE 50 MG TABLET (FP) PO SCH ×2 (10:48→22:25)
[2017-07-03] MEDS: HEPARIN NA (PORCINE) 5,000 UNITS/ML 1ML VIAL SQ SCH ×2 (10:48→22:26)
[2017-07-03 11:12] LABS: ALBUMIN 3.4 g/dl (3.4-5.0); ANION GAP 10 (8-16); CALCIUM 8.5 mg/dL (8.5-10.1); CO2 30 mmol/L (21-32)
[2017-07-03 11:17] LABS: ALK PHOS 136 U/L (45-117); BILIRUBIN,TOTAL 0.4 mg/dL (0.2-1.0); CREATININE 1.2 mg/dL (0.55-1.02); SGOT/AST 19 U/L (15-37); SGPT/ALT 37 U/L (12-78); TOT PROT 7.6 g/dl (6.4-8.2)
[2017-07-03 11:53] LABS: GLUCOSE,RANDOM 431 mg/dL (74-106)
--- NOTE | 2017-07-03 12:46 | PN ---
Progress Note, Physician History of Present Illness: pulmonary alert,feeling better,less dyspneic,less cough - Current Medication List Current Medications: Active Medications Acetaminophen (Tylenol -) 650 mg PO Q6H PRN PRN Reason: FEVER OR PAIN Albuterol/Ipratropium (Duoneb -) 1 amp NEB Q6H PRN PRN Reason: SHORTNESS OF BREATH Last Admin: 07/03/17 10:35 Dose: 1 amp Amlodipine Besylate (Norvasc -) 5 mg PO DAILY [facility] Last Admin: 07/03/17 10:48 Dose: 5 mg Atorvastatin Calcium (Lipitor -) 10 mg PO HS [facility] Last Admin: 07/02/17 21:25 Dose: 10 mg Furosemide (Lasix Injection -) 40 mg IVPUSH BID@0600,1400 [facility] Last Admin: 07/03/17 06:18 Dose: 40 mg Heparin Sodium (Porcine) (Heparin -) 5,000 unit SQ BID [facility] Last Admin: 07/03/17 10:48 Dose: 5,000 unit Insulin Aspart (Novolog Vial Sliding Scale -) 1 vial SQ ACHS [facility] PRN Reason: Protocol Last Admin: 07/03/17 11:57 Dose: 6 units Insulin Detemir (Levemir Vial) 25 units SQ BIDAC [facility] Last Admin: 07/03/17 06:18 Dose: 25 unit Methylprednisolone Sodium Succinate (Solu-Medrol -) 40 mg IVPUSH Q6H-IV [facility] Stop: 07/03/17 23:59 Last Admin: 07/03/17 10:48 Dose: 40 mg Metoprolol Tartrate (Lopressor -) 50 mg PO BID [facility] Last Admin: 07/03/17 10:48 Dose: 50 mg Montelukast Sodium (Singulair -) 10 mg PO HS [facility] Last Admin: 07/02/17 21:25 Dose: 10 mg Spironolactone (Aldactone -) 25 mg PO DAILY [facility] Last Admin: 07/03/17 10:48 Dose: 25 mg - Objective Vital Signs: Vital Signs Temperature 98 F 07/03/17 09:00 Pulse Rate 88 07/03/17 10:40 Respiratory Rate 20 07/03/17 09:00 Blood Pressure 130/69 07/03/17 09:00 O2 Sat by Pulse Oximetry (%) 92 L 07/03/17 10:40 Constitutional: Yes: Well Nourished, Calm Eyes: Yes: WNL HENT: Yes: WNL Neck: Yes: WNL Cardiovascular: Yes: Regular Rate and Rhythm, S1, S2 Respiratory: Yes: Wheezes (scattered bilateral wheezes) Gastrointestinal: Yes: Normal Bowel Sounds, Soft Extremities: Yes: WNL Edema: No Labs: CBC, BMP 07/03/17 10:03 07/03/17 10:03 Problem List - Problems (1) Diabetes 1.5, managed as type 1 Code(s): E10.9 - TYPE 1 DIABETES MELLITUS WITHOUT COMPLICATIONS (2) HTN (hypertension) Code(s): I10 - ESSENTIAL (PRIMARY) HYPERTENSION Qualifiers: Hypertension type: essential hypertension Qualified Code(s): I10 - Essential (primary) hypertension (3) Polycythemia Code(s): D75.1 - SECONDARY POLYCYTHEMIA Assessment/Plan Problem List - Problems (1) Bronchiolitis Code(s): J21.9 - ACUTE BRONCHIOLITIS, UNSPECIFIED (2) Diabetes 1.5, managed as type 1 Code(s): E10.9 - TYPE 1 DIABETES MELLITUS WITHOUT COMPLICATIONS (3) Shortness of breath Code(s): R06.02 - SHORTNESS OF BREATH (4) Abnormal liver enzymes Code(s): R74.8 - ABNORMAL LEVELS OF OTHER SERUM ENZYMES (5) Asthma Code(s): J45.909 - UNSPECIFIED ASTHMA, UNCOMPLICATED Qualifiers: Asthma severity: unspecified severity Asthma complication type: uncomplicated Qualified Code(s): J45.909 - Unspecified asthma, uncomplicated (6) Asthmatic bronchitis Code(s): J45.909 - UNSPECIFIED ASTHMA, UNCOMPLICATED Assessment/Plan LIKELY INHALATION INJURY TO "BUG BOMB" ASTHMA/COPD EXACERBATION SECONDARY TO ABOVE POLYCYTHEMIA HTN DM PLAN IV STEROIDS INHALED BRONCHODILATORS O2 PRN PEAK FLOW PFTS OUTPATIENT DR LOMELI
--- NOTE | 2017-07-03 13:13 | PN ---
Progress Note (short form) - Note Progress Note: ID consult dictated imp/reccd 57 year old female with HTN, DM, Asthma, chf admitted with sob after "bug bomomb " in her apt. denies fevers or chills +cough +wheezing chest ct with ground glass infiltrates and patchy lower lobe infiltrates now with leukocytosis hiv negative - tested in april 2017 suspect inhalation bronchospasm but cannot r/o pneumonia add ceftriaxone check echo d/w Dr Paredes Problem List - Problems (1) Asthma Code(s): J45.909 - UNSPECIFIED ASTHMA, UNCOMPLICATED Qualifiers: Asthma severity: unspecified severity Asthma complication type: uncomplicated (2) Pneumonia Code(s): J18.9 - PNEUMONIA, UNSPECIFIED ORGANISM
[2017-07-03] MEDS ORDERED: cefTRIAXone 2 GM/100 ML BAG (PRE-DOCKED) IVPB SCH (13:30)
--- NOTE | 2017-07-03 14:35 | CONS ---
DATE OF CONSULTATION: REQUESTING PHYSICIAN: Ronnie Winkler MD HISTORY: This is a 57-year-old woman with past medical history of hypertension, diabetes, asthma who had an admission in April to [facility] for pneumonia and hemoptysis. Included AFB workup. Sputum grew Mycobacterium avium complex. She was HIV negative. She was discharged home on oral antibiotics. She reports she did well at that time. She is now admitted after she developed shortness of breath at home from chemicals from apparently a bug bomb that was set up in her kitchen. She reports she has been having cough difficult at tell and perhaps even prior to this bomb as well as she now is wheezing. She was admitted with these complaints. As part of the evaluation, she had a head CT that was abnormal. She had an MRI of her brain showing white matter changes. She had a chest x-ray that shows bibasilar infiltrates as well as a chest CT that shows bibasilar atelectasis and infiltrates with some ground-glass with some air trapping in the upper lobes. When compared to CAT scan from April, most of the infiltrates are resolved, but she does appear to have a new left lower lobe infiltrate. I am asked to see her for leukocytosis infiltrate. PAST MEDICAL HISTORY: Notable for history of hypertension, diabetes, asthma, COPD, CHF, and polycythemia. She has a history of GERD as well. ALLERGIES: She has no known drug allergies. MEDICATIONS: Her medication list could not be verified from the last admission and included DuoNeb, Norvasc, Lipitor, Farxiga, Lasix, insulin, , Prinivil, Lopressor, Singulair, and spironolactone. SURGICAL HISTORY: She is status post cholecystectomy. She has a history of nonischemic cardiomyopathy as well. She had a CAT scan in 2016 that showed no coronary obstruction. SOCIAL HISTORY: She is originally from [place]. 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 She has been on disability. No history of any cigarette or substance use. She is followed by Dr. Winkler. REVIEW OF SYSTEMS: Notable for wheezing. Otherwise, she has a good appetite and feels well. She denies any headache or visual changes. PHYSICAL EXAMINATION: Vital Signs: Temperature is 98, pulse 88, blood pressure 130/69, respiratory rate 20, saturating 92% on room air. HEENT: She is normocephalic. Eyes are anicteric. She has no thrush. Neck: Supple. Lungs: Scattered rhonchi and crackles at the left base. Heart: Regular rate and rhythm. Abdomen: Soft and nontender. It is protuberant. Cannot palpate any organomegaly. Extremities: Without edema. Her HIV test in April was negative. Her BUN 26, creatinine 1.2 with a glucose for 431. Hemoglobin A1C is 11.4. Her white count is 18.4 today, hemoglobin 15.6 with platelets 314. In summary, this is a 57-year-old woman admitted after an inhalation with shortness of breath and a questionable bibasilar infiltrate, possible left lower lobe on x-ray now with leukocytosis, which may well be secondary to steroids. As well, she is HIV negative. I suspect she has inhalation bronchospasm but given the CAT scan findings, cannot rule out pneumonia. Would obtain cultures and add ceftriaxone. As well would obtain an echocardiogram. The case was discussed with Pulmonary. Christian [id number]
--- NOTE | 2017-07-03 15:06 | PN ---
Progress Note, Physician History of Present Illness: Pt seen and examined at bedside. She is awake and alert. She feels her breathing is improved. - Current Medication List Current Medications: Active Medications Acetaminophen (Tylenol -) 650 mg PO Q6H PRN PRN Reason: FEVER OR PAIN Albuterol/Ipratropium (Duoneb -) 1 amp NEB Q6H PRN PRN Reason: SHORTNESS OF BREATH Last Admin: 07/03/17 10:35 Dose: 1 amp Amlodipine Besylate (Norvasc -) 5 mg PO DAILY [facility] Last Admin: 07/03/17 10:48 Dose: 5 mg Atorvastatin Calcium (Lipitor -) 10 mg PO HS [facility] Last Admin: 07/02/17 21:25 Dose: 10 mg Ceftriaxone Sodium (Rocephin 2gm Ivpb (Pre-Docked)) 2 gm IVPB DAILY [facility] PRN Reason: Protocol Furosemide (Lasix Injection -) 40 mg IVPUSH BID@0600,1400 [facility] Last Admin: 07/03/17 14:52 Dose: 40 mg Heparin Sodium (Porcine) (Heparin -) 5,000 unit SQ BID [facility] Last Admin: 07/03/17 10:48 Dose: 5,000 unit Insulin Aspart (Novolog Vial Sliding Scale -) 1 vial SQ ACHS [facility] PRN Reason: Protocol Last Admin: 07/03/17 11:57 Dose: 6 units Insulin Detemir (Levemir Vial) 25 units SQ BIDAC [facility] Last Admin: 07/03/17 06:18 Dose: 25 unit Methylprednisolone Sodium Succinate (Solu-Medrol -) 40 mg IVPUSH Q6H-IV [facility] Stop: 07/03/17 23:59 Last Admin: 07/03/17 14:52 Dose: 40 mg Metoprolol Tartrate (Lopressor -) 50 mg PO BID [facility] Last Admin: 07/03/17 10:48 Dose: 50 mg Montelukast Sodium (Singulair -) 10 mg PO HS [facility] Last Admin: 07/02/17 21:25 Dose: 10 mg Spironolactone (Aldactone -) 25 mg PO DAILY [facility] Last Admin: 07/03/17 10:48 Dose: 25 mg - Objective Vital Signs: Vital Signs Temperature 98.2 F 07/03/17 13:37 Pulse Rate 82 07/03/17 13:37 Respiratory Rate 20 07/03/17 13:37 Blood Pressure 113/67 11/20/17 13:37 O2 Sat by Pulse Oximetry (%) 92 L 07/03/17 10:40 Constitutional: Yes: Calm Eyes: Yes: Conjunctiva Clear HENT: Yes: Atraumatic Neck: Yes: Supple Cardiovascular: Yes: S1, S2 Respiratory: Yes: On Nasal O2 Gastrointestinal: Yes: Soft Genitourinary: Yes: WNL Extremities: Yes: WNL Edema: No Neurological: Yes: Oriented Labs: CBC, BMP 07/03/17 10:03 07/03/17 10:03 Assessment/Plan Current Medications Generic Name Dose Route Start Last Admin Trade Name Freq PRN Reason Stop Dose Admin Acetaminophen 650 mg 07/01/17 09:51 Tylenol - PO Q6H PRN FEVER OR PAIN Albuterol/Ipratropium 1 amp 07/01/17 09:51 07/03/17 10:35 Duoneb - NEB 1 amp Q6H PRN Administration SHORTNESS OF BREATH Amlodipine Besylate 5 mg 07/01/17 10:00 07/03/17 10:48 Norvasc - PO 5 mg DAILY [facility] Administration Atorvastatin Calcium 10 mg 07/01/17 10:00 07/02/17 21:25 Lipitor - PO 10 mg HS [facility] Administration Ceftriaxone Sodium 2 gm 07/03/17 13:30 Rocephin 2gm Ivpb (Pre-Docked) IVPB DAILY [facility] Protocol Furosemide 40 mg 07/01/17 10:00 07/03/17 14:52 Lasix Injection - IVPUSH 40 mg BID@0600,1400 [facility] Administration Heparin Sodium (Porcine) 5,000 unit 07/01/17 10:45 07/03/17 10:48 Heparin - SQ 5,000 unit BID [facility] Administration Insulin Aspart 1 vial 07/01/17 10:00 07/03/17 11:57 Novolog Vial Sliding Scale - SQ 6 units ACHS [facility] Administration Protocol Insulin Detemir 25 units 07/01/17 10:00 07/03/17 06:18 Levemir Vial SQ 25 unit BIDAC [facility] Administration Methylprednisolone Sodium Succinate 40 mg 07/01/17 21:00 07/03/17 14:52 Solu-Medrol - IVPUSH 07/03/17 23:59 40 mg Q6H-IV [facility] Administration Metoprolol Tartrate 50 mg 07/01/17 10:00 07/03/17 10:48 Lopressor - PO 50 mg BID [facility] Administration Montelukast Sodium 10 mg 07/01/17 10:00 07/02/17 21:25 Singulair - PO 10 mg HS [facility] Administration Spironolactone 25 mg 07/01/17 10:00 07/03/17 10:48 Aldactone - PO 25 mg DAILY [facility] Administration Impression 1. CONNER 2. DM uncontrolled 3. CHF 4. copd 5. htn Plan - renal function worse today - repeat labs in am - will need better glucose control - repeat cxr - check ua Dr Lawrence
[2017-07-03] MEDS: CEFTRIAXONE 2 GM in DEXTROSE 5%-WATER - 100 ML IVPB SCH (15:45)
[2017-07-03] MEDS ORDERED: PT OWN MED DRAWER 7, Y5N ONE (16:29)
[2017-07-03 17:54] LABS: URINE APPEARANCE CLEAR; URINE BILIRUBIN NEGATIVE (NEGATIVE); URINE BLOOD 1+ (NEGATIVE); URINE COLOR STRAW; URINE GLUCOSE (UA) 3+ (NEGATIVE); URINE KETONE NEGATIVE (NEGATIVE); URINE NITRITE NEGATIVE (NEGATIVE); URINE PROTEIN NEGATIVE (NEGATIVE); URINE UROBILINOGEN NEGATIVE mg/dL (0.2-1.0)
[2017-07-03 17:56] LABS: URINE MUCUS RARE; URINE RBC 1 /hpf (0-3); URINE WBC 1 /hpf (3-5)
[2017-07-03] MEDS ORDERED: INSULIN DETEMIR 100 UNITS/ML MDV SQ ONE (18:10)
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
[2017-07-03 21:45] LABS: URINE LEUK ESTERASE Negative (NEGATIVE)
[2017-07-03] MEDS: ATORVASTATIN CA 10 MG TABLET (FP) PO SCH (22:26)
[2017-07-03] MEDS: MONTELUKAST NA 10 MG TABLET PO SCH (22:26)
[2017-07-04] MEDS ORDERED: INSULIN DETEMIR 100 UNITS/ML MDV SQ ONE ×2 (00:30→17:28)
[2017-07-04] MEDS: INSULIN DETEMIR 100 UNITS/ML MDV SQ SCH ×2 (06:22→17:30)
[2017-07-04] MEDS: FUROSEMIDE 40 MG/4 ML INJECTABLE VIAL IVPUSH SCH ×2 (06:22→13:09)
[2017-07-04] MEDS: INSULIN SLIDING SCALE (NOVOLOG) 1 VIAL SQ SCH ×4 (06:23→21:30)
[2017-07-04] MEDS ORDERED: INSULIN (NOVOLOG) ASPART 100 UNITS/ML 10ML VIAL ONE ×3 (06:39→21:22)
[2017-07-04 07:34] LABS: ANION GAP 7 (8-16); CALCIUM 8.1 mg/dL (8.5-10.1); CO2 31 mmol/L (21-32); CREATININE 0.9 mg/dL (0.55-1.02)
[2017-07-04 07:41] LABS: GLUCOSE,RANDOM 409 mg/dL (74-106)
--- NOTE | 2017-07-04 08:07 | PN ---
Progress Note, Physician History of Present Illness: c/o feeling dizzy and off balance - Current Medication List Current Medications: Active Medications Acetaminophen (Tylenol -) 650 mg PO Q6H PRN PRN Reason: FEVER OR PAIN Albuterol/Ipratropium (Duoneb -) 1 amp NEB Q6H PRN PRN Reason: SHORTNESS OF BREATH Last Admin: 07/03/17 10:35 Dose: 1 amp Amlodipine Besylate (Norvasc -) 5 mg PO DAILY [facility] Last Admin: 07/03/17 10:48 Dose: 5 mg Atorvastatin Calcium (Lipitor -) 10 mg PO HS [facility] Last Admin: 07/03/17 22:26 Dose: 10 mg Furosemide (Lasix Injection -) 40 mg IVPUSH BID@0600,1400 [facility] Last Admin: 07/04/17 06:22 Dose: 40 mg Heparin Sodium (Porcine) (Heparin -) 5,000 unit SQ BID [facility] Last Admin: 07/03/17 22:26 Dose: 5,000 unit Ceftriaxone Sodium 2 gm/ (Dextrose) 100 mls @ 200 mls/hr IVPB DAILY [facility] Last Admin: 07/03/17 15:45 Dose: 200 mls/hr Insulin Aspart (Novolog Vial Sliding Scale -) 1 vial SQ ACHS [facility] PRN Reason: Protocol Last Admin: 07/04/17 06:23 Dose: 13 units Insulin Detemir (Levemir Vial) 36 units SQ BIDAC [facility] Last Admin: 07/04/17 06:22 Dose: 36 units Metoprolol Tartrate (Lopressor -) 50 mg PO BID [facility] Last Admin: 07/03/17 22:25 Dose: 50 mg Montelukast Sodium (Singulair -) 10 mg PO HS [facility] Last Admin: 07/03/17 22:26 Dose: 10 mg Spironolactone (Aldactone -) 25 mg PO DAILY [facility] Last Admin: 07/03/17 10:48 Dose: 25 mg - Objective Vital Signs: Vital Signs Temperature 97.4 F L 07/04/17 06:00 Pulse Rate 86 07/04/17 06:00 Respiratory Rate 18 07/04/17 06:00 Blood Pressure 116/72 07/04/17 06:00 O2 Sat by Pulse Oximetry (%) 96 07/03/17 22:00 Respiratory: Yes: Rales (-less) Gastrointestinal: Yes: Normal Bowel Sounds, Soft Labs: CBC, BMP 07/04/17 06:49 Problem List - Problems (1) Diabetes 1.5, managed as type 1 Assessment/Plan: continue with insulin--levemir and sliding scale a1c monitor bgm endo consult noted Code(s): E10.9 - TYPE 1 DIABETES MELLITUS WITHOUT COMPLICATIONS (2) Multiple sclerosis Assessment/Plan: ruled out mri with contrast no evidence of demyelinating ds neuro follow up Code(s): G35 - MULTIPLE SCLEROSIS (3) CHF (congestive heart failure) Assessment/Plan: lv dysfunctio--ef 44% on iv lASIX--change to po F/U CXR noted Code(s): I50.9 - HEART FAILURE, UNSPECIFIED Qualifiers: Congestive heart failure type: unspecified congestive heart failure type Congestive heart failure chronicity: acute on chronic Qualified Code(s): I50.9 - Heart failure, unspecified (4) COPD exacerbation Assessment/Plan: STEROID TAPER PER PULM NEBS Code(s): J44.1 - CHRONIC OBSTRUCTIVE PULMONARY DISEASE W (ACUTE) EXACERBATION (5) Pneumonia Assessment/Plan: IV ABX ID CONSULT NOTED--ON ABX CXR Code(s): J18.9 - PNEUMONIA, UNSPECIFIED ORGANISM
[2017-07-04 08:09] LABS: MCH 28.7 pg (25.7-33.7); MCHC 31.6 g/dl (32.0-36.0); MEAN CELL VOLUME 90.9 fl (80-96); MEAN PLT VOLUME 8.6 fl (7.5-11.1); PLATELET COUNT 315 K/MM3 (134-434); RDW 16.5 % (11.6-15.6); WHITE BLOOD COUNT 16.7 K/mm3 (4.0-10.0)
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
[2017-07-04] MEDS: SPIRONOLACTONE 25 MG TABLET (FP) PO SCH (09:49)
[2017-07-04] MEDS: amLODIPine BESYLATE 5 MG TABLET (FP) PO SCH (09:49)
[2017-07-04] MEDS: HEPARIN NA (PORCINE) 5,000 UNITS/ML 1ML VIAL SQ SCH ×2 (09:49→21:30)
[2017-07-04] MEDS: CEFTRIAXONE 2 GM in DEXTROSE 5%-WATER - 100 ML IVPB SCH (09:49)
[2017-07-04] MEDS: METOPROLOL TARTRATE 50 MG TABLET (FP) PO SCH ×2 (09:50→21:33)
[2017-07-04 10:00] LABS: PLATELET ESTIMATE ADEQUATE; TOTAL CELLS COUNTED 100
[2017-07-04] MEDS: ALBUTEROL SO4 2.5/IPRATROPIUM 0.5 INH SOL 3 ML VIAL.NEB. NEB PRN ×2 (10:00→22:33)
--- NOTE | 2017-07-04 11:46 | PN ---
Progress Note, Physician History of Present Illness: PULMONARY AWAKE,AMBULATING WITH PT,-RESP DISTRES - Current Medication List Current Medications: Active Medications Acetaminophen (Tylenol -) 650 mg PO Q6H PRN PRN Reason: FEVER OR PAIN Albuterol/Ipratropium (Duoneb -) 1 amp NEB Q6H PRN PRN Reason: SHORTNESS OF BREATH Last Admin: 07/04/17 10:00 Dose: 1 amp Amlodipine Besylate (Norvasc -) 5 mg PO DAILY [facility] Last Admin: 07/04/17 09:49 Dose: 5 mg Atorvastatin Calcium (Lipitor -) 10 mg PO HS [facility] Last Admin: 07/03/17 22:26 Dose: 10 mg Furosemide (Lasix Injection -) 40 mg IVPUSH BID@0600,1400 [facility] Last Admin: 07/04/17 06:22 Dose: 40 mg Heparin Sodium (Porcine) (Heparin -) 5,000 unit SQ BID [facility] Last Admin: 07/04/17 09:49 Dose: 5,000 unit Ceftriaxone Sodium 2 gm/ (Dextrose) 100 mls @ 200 mls/hr IVPB DAILY [facility] Last Admin: 07/04/17 09:49 Dose: 200 mls/hr Insulin Aspart (Novolog Vial Sliding Scale -) 1 vial SQ ACHS [facility] PRN Reason: Protocol Last Admin: 07/04/17 06:23 Dose: 13 units Insulin Detemir (Levemir Vial) 36 units SQ BIDAC [facility] Last Admin: 07/04/17 06:22 Dose: 36 units Metoprolol Tartrate (Lopressor -) 50 mg PO BID [facility] Last Admin: 07/04/17 09:50 Dose: 50 mg Montelukast Sodium (Singulair -) 10 mg PO HS [facility] Last Admin: 07/03/17 22:26 Dose: 10 mg Spironolactone (Aldactone -) 25 mg PO DAILY [facility] Last Admin: 07/04/17 09:49 Dose: 25 mg - Objective Vital Signs: Vital Signs Temperature 97.4 F L 07/04/17 06:00 Pulse Rate 84 07/04/17 10:00 Respiratory Rate 18 07/04/17 06:00 Blood Pressure 116/72 07/04/17 06:00 O2 Sat by Pulse Oximetry (%) 98 07/04/17 10:00 Constitutional: Yes: Well Nourished, Calm Eyes: Yes: WNL HENT: Yes: WNL Neck: Yes: WNL Cardiovascular: Yes: Regular Rate and Rhythm, S1, S2 Respiratory: Yes: Diminished Gastrointestinal: Yes: Normal Bowel Sounds, Soft Extremities: Yes: WNL Edema: No Labs: CBC, BMP 07/04/17 06:50 07/04/17 06:49 - ....Imaging Chest X-ray: Report Reviewed, Image Reviewed Cat Scan: Report Reviewed, Image Reviewed Problem List - Problems (1) Diabetes 1.5, managed as type 1 Code(s): E10.9 - TYPE 1 DIABETES MELLITUS WITHOUT COMPLICATIONS (2) HTN (hypertension) Code(s): I10 - ESSENTIAL (PRIMARY) HYPERTENSION Qualifiers: Hypertension type: essential hypertension Qualified Code(s): I10 - Essential (primary) hypertension (3) Polycythemia Code(s): D75.1 - SECONDARY POLYCYTHEMIA Assessment/Plan Problem List - Problems (1) Bronchiolitis Code(s): J21.9 - ACUTE BRONCHIOLITIS, UNSPECIFIED (2) Diabetes 1.5, managed as type 1 Code(s): E10.9 - TYPE 1 DIABETES MELLITUS WITHOUT COMPLICATIONS (3) Shortness of breath Code(s): R06.02 - SHORTNESS OF BREATH (4) Abnormal liver enzymes Code(s): R74.8 - ABNORMAL LEVELS OF OTHER SERUM ENZYMES (5) Asthma Code(s): J45.909 - UNSPECIFIED ASTHMA, UNCOMPLICATED Qualifiers: Asthma severity: unspecified severity Asthma complication type: uncomplicated Qualified Code(s): J45.909 - Unspecified asthma, uncomplicated (6) Asthmatic bronchitis Code(s): J45.909 - UNSPECIFIED ASTHMA, UNCOMPLICATED Assessment/Plan LIKELY INHALATION INJURY TO "BUG BOMB" ASTHMA/COPD EXACERBATION SECONDARY TO ABOVE POLYCYTHEMIA HTN DM BILATERAL BIBASILAR INFILTRATES/ATELECTASIS PLAN IV STEROIDS INHALED BRONCHODILATORS O2 PRN PEAK FLOW PFTS OUTPATIENT DR LOMELI
--- NOTE | 2017-07-04 13:43 | PN ---
Progress Note, Physician History of Present Illness: Pt seen and examined at bedside. Her blood sugar has been difficult to control. - Current Medication List Current Medications: Active Medications Acetaminophen (Tylenol -) 650 mg PO Q6H PRN PRN Reason: FEVER OR PAIN Albuterol/Ipratropium (Duoneb -) 1 amp NEB Q6H PRN PRN Reason: SHORTNESS OF BREATH Last Admin: 07/04/17 10:00 Dose: 1 amp Amlodipine Besylate (Norvasc -) 5 mg PO DAILY [facility] Last Admin: 07/04/17 09:49 Dose: 5 mg Atorvastatin Calcium (Lipitor -) 10 mg PO HS [facility] Last Admin: 07/03/17 22:26 Dose: 10 mg Furosemide (Lasix Injection -) 40 mg IVPUSH BID@0600,1400 [facility] Last Admin: 07/04/17 13:09 Dose: 40 mg Heparin Sodium (Porcine) (Heparin -) 5,000 unit SQ BID [facility] Last Admin: 07/04/17 09:49 Dose: 5,000 unit Ceftriaxone Sodium 2 gm/ (Dextrose) 100 mls @ 200 mls/hr IVPB DAILY [facility] Last Admin: 07/04/17 09:49 Dose: 200 mls/hr Insulin Aspart (Novolog Vial Sliding Scale -) 1 vial SQ ACHS [facility] PRN Reason: Protocol Last Admin: 07/04/17 11:54 Dose: 13 units Insulin Detemir (Levemir Vial) 36 units SQ BIDAC [facility] Last Admin: 07/04/17 06:22 Dose: 36 units Metoprolol Tartrate (Lopressor -) 50 mg PO BID [facility] Last Admin: 07/04/17 09:50 Dose: 50 mg Montelukast Sodium (Singulair -) 10 mg PO HS [facility] Last Admin: 07/03/17 22:26 Dose: 10 mg Spironolactone (Aldactone -) 25 mg PO DAILY [facility] Last Admin: 07/04/17 09:49 Dose: 25 mg - Objective Vital Signs: Vital Signs Temperature 98.2 F 07/04/17 10:00 Pulse Rate 85 07/04/17 10:00 Respiratory Rate 20 07/04/17 10:00 Blood Pressure 133/83 07/04/17 10:00 O2 Sat by Pulse Oximetry (%) 98 07/04/17 10:00 Constitutional: Yes: Calm Eyes: Yes: Conjunctiva Clear HENT: Yes: Atraumatic Neck: Yes: Supple Cardiovascular: Yes: S1, S2 Respiratory: Yes: CTA Bilaterally Gastrointestinal: Yes: Soft Genitourinary: Yes: WNL Musculoskeletal: Yes: WNL Edema: No Neurological: Yes: Oriented Psychiatric: Yes: Oriented Labs: CBC, BMP 07/04/17 06:50 07/04/17 06:49 Problem List - Problems (1) Hematuria Code(s): R31.9 - HEMATURIA, UNSPECIFIED (2) CHF (congestive heart failure) Code(s): I50.9 - HEART FAILURE, UNSPECIFIED Qualifiers: Congestive heart failure type: unspecified congestive heart failure type Congestive heart failure chronicity: acute on chronic Qualified Code(s): I50.9 - Heart failure, unspecified (3) COPD exacerbation Code(s): J44.1 - CHRONIC OBSTRUCTIVE PULMONARY DISEASE W (ACUTE) EXACERBATION Assessment/Plan Current Medications Generic Name Dose Route Start Last Admin Trade Name Freq PRN Reason Stop Dose Admin Acetaminophen 650 mg 07/01/17 09:51 Tylenol - PO Q6H PRN FEVER OR PAIN Albuterol/Ipratropium 1 amp 07/01/17 09:51 07/04/17 10:00 Duoneb - NEB 1 amp Q6H PRN Administration SHORTNESS OF BREATH Amlodipine Besylate 5 mg 07/01/17 10:00 07/04/17 09:49 Norvasc - PO 5 mg DAILY [facility] Administration Atorvastatin Calcium 10 mg 07/01/17 10:00 07/03/17 22:26 Lipitor - PO 10 mg HS [facility] Administration Furosemide 40 mg 07/01/17 10:00 07/04/17 13:09 Lasix Injection - IVPUSH 40 mg BID@0600,1400 [facility] Administration Heparin Sodium (Porcine) 5,000 unit 07/01/17 10:45 07/04/17 09:49 Heparin - SQ 5,000 unit BID [facility] Administration Ceftriaxone Sodium 2 gm/ 100 mls @ 200 mls/hr 07/03/17 15:30 07/04/17 09:49 Dextrose IVPB 200 mls/hr DAILY [facility] Administration Insulin Aspart 1 vial 07/03/17 22:00 07/04/17 11:54 Novolog Vial Sliding Scale - SQ 13 units ACHS [facility] Administration Protocol Insulin Detemir 36 units 07/04/17 07:00 07/04/17 06:22 Levemir Vial SQ 36 units BIDAC [facility] Administration Metoprolol Tartrate 50 mg 07/01/17 10:00 07/04/17 09:50 Lopressor - PO 50 mg BID [facility] Administration Montelukast Sodium 10 mg 07/01/17 10:00 07/03/17 22:26 Singulair - PO 10 mg HS [facility] Administration Spironolactone 25 mg 07/01/17 10:00 07/04/17 09:49 Aldactone - PO 25 mg DAILY [facility] Administration Laboratory Tests 07/03/17 17:00 Urine Glucose (UA) 3+ H Urine Blood 1+ H Impression 1. CONNER 2. DM uncontrolled 3. CHF 4. copd 5. htn 6. microscopic hematuria Plan - renal function is improved - will need better glucose control - repeat labs in am - check renal ultrasound as she has microscopic hematuria - cxr reviewed, there is congestion - cont with diuretics - will follow Dr Lawrence
--- NOTE | 2017-07-04 13:57 | PN ---
Progress Note (short form) - Note Progress Note: doing well less wheezing Vital Signs Period Temp Pulse Resp BP Sys/Plasencia Pulse Ox Last 24 Hr 97.4 F-98.7 F 80-88 16-20 116-146/72-97 96-98 cor-rrr lungs scattered wheezes - few abd soft,nt ext no edema CBC, BMP 07/04/17 06:50 07/04/17 06:49 cultures pending imp/reccd 57 year old female with HTN, DM, Asthma, chf admitted with sob after "bug bog bomb" in her apt. denies fevers or chills +cough +wheezing suspect inhalation bronchospasm but cannot r/o pneumonia ceftriaxone day #2, can switch to ceftin in am complete 7 days Problem List - Problems (1) Asthma Code(s): J45.909 - UNSPECIFIED ASTHMA, UNCOMPLICATED Qualifiers: Asthma severity: unspecified severity Asthma complication type: uncomplicated (2) Pneumonia Code(s): J18.9 - PNEUMONIA, UNSPECIFIED ORGANISM
[2017-07-04] MEDS: ALPRAZolam 0.25 MG TABLET PO PRN (15:07)
[2017-07-04] MEDS ORDERED: FLU VACCINE QUAD 60 MCG/0.5 ML (MDV 17-18) IM ONE (16:00)
[2017-07-04] MEDS: MONTELUKAST NA 10 MG TABLET PO SCH (21:32)
[2017-07-04] MEDS: ATORVASTATIN CA 10 MG TABLET (FP) PO SCH (21:33)
[2017-07-05] MEDS: ALPRAZolam 0.25 MG TABLET PO PRN (03:19)
[2017-07-05] MEDS ORDERED: INSULIN DETEMIR 100 UNITS/ML MDV SQ ONE (05:39)
[2017-07-05] MEDS: FUROSEMIDE 40 MG/4 ML INJECTABLE VIAL IVPUSH SCH (06:31)
[2017-07-05] MEDS: INSULIN SLIDING SCALE (NOVOLOG) 1 VIAL SQ SCH ×3 (06:34→17:51)
[2017-07-05] MEDS ORDERED: INSULIN (NOVOLOG) ASPART 100 UNITS/ML 10ML VIAL ONE ×2 (06:42→12:05)
--- NOTE | 2017-07-05 09:17 | DS ---
Physical Examination Vital Signs: Vital Signs Temperature 98 F 07/05/17 09:00 Pulse Rate 82 07/05/17 09:00 Respiratory Rate 20 07/05/17 09:00 Blood Pressure 106/66 07/05/17 09:00 O2 Sat by Pulse Oximetry (%) 95 07/04/17 22:00 Labs: CBC, BMP 07/04/17 06:50 07/04/17 06:49 Discharge Summary Reason For Visit: SHORTNESS OF BREATH Current Active Problems Bronchiolitis (Acute) Diabetes 1.5, managed as type 1 (Acute) Hematuria (Acute) Lethargy (Acute) Multiple sclerosis (Acute) Shortness of breath (Acute) Toxic metabolic encephalopathy (Acute) Hospital Course: 57 Y/O FEMALE NON-COMPLIANT DIABETIC WITH HISTORY OF CHF, COPD HERE WITH RESPIRATORY DISTRESS. PATIENT CLAIMS SHE INHALED AN [employer] CHEMICAL THAT WAS USED IN HER HOUSE HOLD. EMS DESCRIBES THE CHEMICAL A CYPER/ TETRAMETHRINS. History Source: Medical Record Limitations to Obtaining History: Clinical Condition - Past Medical History Cardiovascular: Yes: HTN, Hyperlipdemia, Other. No: AFIB, CAD Pulmonary: Yes: Asthma, COPD. No: Pulmonary Embolus Gastrointestinal: Yes: GERD. No: Cancer Endocrine: Yes: Diabetes Mellitus Problems (1) Diabetes 1.5, managed as type 1 Assessment/Plan: continue with insulin--levemir and sliding scale a1c monitor bgm endo consult noted Code(s): E10.9 - TYPE 1 DIABETES MELLITUS WITHOUT COMPLICATIONS (2) Multiple sclerosis Assessment/Plan: ruled out mri with contrast no evidence of demyelinating ds neuro follow up Code(s): G35 - MULTIPLE SCLEROSIS (3) CHF (congestive heart failure) Assessment/Plan: lv dysfunctio--ef 44% on iv lASIX--change to po F/U CXR noted Code(s): I50.9 - HEART FAILURE, UNSPECIFIED Qualifiers: Congestive heart failure type: unspecified congestive heart failure type Congestive heart failure chronicity: acute on chronic Qualified Code(s): I50.9 - Heart failure, unspecified (4) COPD exacerbation Assessment/Plan: STEROID TAPER PER PULM NEBS 0xygen 88 %--needs home oxygen Code(s): J44.1 - CHRONIC OBSTRUCTIVE PULMONARY DISEASE W (ACUTE) EXACERBATION (5) Pneumonia Assessment/Plan: IV ABX--to po ID CONSULT NOTED--ON ABX CXR Code(s): J18.9 - PNEUMONIA, UNSPECIFIED ORGANISM Condition: Improved - Instructions Disposition: HOME - Home Medications Comprehensive Discharge Medication List: Ambulatory Orders Albuterol 2.5/Ipratropium 0.5 [Duoneb -] 1 neb NEB Q4H PRN #180 amp 05/03/17 Atorvastatin Ca [Lipitor] 10 mg PO HS #30 tab 05/03/17 Dapagliflozin Propanediol [Farxiga] 10 mg PO DAILY #30 tab 05/03/17 Doxycycline Hyclate [Vibramycin -] 100 mg PO BID@1000,1800 #6 cap 05/03/17 Insulin (Levemir) [Levemir Flexpen -] 50 units SQ BID 30 Days each 05/03/17 Linaclotide [Linzess] 145 mcg PO DAILY #30 cap 05/03/17 Metoprolol Tartrate [Lopressor -] 50 mg PO BID #30 tablet 05/03/17 Montelukast Na [Singulair -] 10 mg PO HS #30 tab 05/03/17 Nystatin Oral Suspension - [Nystatin Oral Susp 551783 Units/5 ML -] 500,000 units PO Q6HPO 10 Days ml 05/03/17 Spironolactone [Aldactone -] 25 mg PO DAILY #30 tablet 05/03/17 Amlodipine Besylate [Norvasc -] 5 mg PO DAILY #30 tablet 07/05/17 Cefuroxime Axetil [Ceftin -] 500 mg PO BID #14 tablet 07/05/17 Furosemide [Lasix -] 40 mg PO BID@0600,1400 #60 tablet 07/05/17 Prednisone [Deltasone -] 10 mg PO BID #60 tablet 07/05/17 Ramipril [Altace] 2.5 mg PO DAILY #30 capsule 07/05/17
--- NOTE | 2017-07-05 09:35 | PN ---
Progress Note (short form) - Note Progress Note: Neurology History of Present Illness Patient is a 57F with history of HTN, IDDM, Asthma/COPD, CHF and presented for shortness of breath after inhaling chemicals from a bug bomb. Paramedics reported that she was exposed to tetramethrin and cypermethrin. Patient reports associated cough, wheezing, back pain and foot pain after exposure. She denies feeling ill before exposure. She was admitted to the hospital and CT head completed, reviewed images and report. Radiologist suggested MRI brain which was completed and showed extensive white matter changes. MRI brain with contrast completed and did not show demylination, only showed microvascular changes as seen on noncontrast MRI. She feels well this morning, some slight dizzyness but otherwise stable. No focal deficits and more interactive at this time. Plan is for discharge. Active Medications Acetaminophen (Tylenol -) 650 mg PO Q6H PRN PRN Reason: FEVER OR PAIN Albuterol/Ipratropium (Duoneb -) 1 amp NEB Q6H PRN PRN Reason: SHORTNESS OF BREATH Last Admin: 07/04/17 22:33 Dose: 1 amp Alprazolam (Xanax -) 0.25 mg PO Q12H PRN Last Admin: 07/05/17 03:19 Dose: 0.25 mg Amlodipine Besylate (Norvasc -) 5 mg PO DAILY [facility] Last Admin: 07/04/17 09:49 Dose: 5 mg Atorvastatin Calcium (Lipitor -) 10 mg PO HS [facility] Last Admin: 07/04/17 21:33 Dose: 10 mg Furosemide (Lasix -) 40 mg PO BID@0600,1400 [facility] Heparin Sodium (Porcine) (Heparin -) 5,000 unit SQ BID [facility] Last Admin: 07/04/17 21:30 Dose: 5,000 unit Ceftriaxone Sodium 2 gm/ (Dextrose) 100 mls @ 200 mls/hr IVPB DAILY [facility] Last Admin: 07/04/17 09:49 Dose: 200 mls/hr Insulin Aspart (Novolog Vial Sliding Scale -) 1 vial SQ ACHS [facility] PRN Reason: Protocol Last Admin: 07/05/17 06:34 Dose: Not Given Insulin Detemir (Levemir Vial) 36 units SQ BIDAC [facility] Last Admin: 07/04/17 17:30 Dose: 36 units Metoprolol Tartrate (Lopressor -) 50 mg PO BID [facility] Last Admin: 07/04/17 21:33 Dose: 50 mg Montelukast Sodium (Singulair -) 10 mg PO HS [facility] Last Admin: 07/04/17 21:32 Dose: 10 mg Prednisone (Deltasone -) 10 mg PO BID [facility] Ramipril (Altace -) 2.5 mg PO DAILY [facility] Spironolactone (Aldactone -) 25 mg PO DAILY [facility] Last Admin: 07/04/17 09:49 Dose: 25 mg *Physical Exam Vital Signs Period Temp Pulse Resp BP Sys/Plasencia Pulse Ox Last 24 Hr 97.7 F-98.2 F 70-85 16-20 106-140/66-83 95-98 GENERAL: Somnolent but in no acute distress HEAD: No signs of trauma, normocephalic, atraumatic EYES: PERRLA, EOMI, sclera anicteric, conjunctiva clear ENT: Auricles normal inspection, hearing grossly normal, nares patent, oropharynx clear without exudates. Moist mucosa NECK: Normal ROM, supple, no lymphadenopathy, JVD, or masses LUNGS: No distress, speaks full sentences, scattered wheezes bilaterally HEART: Regular rate and rhythm, normal S1 and S2, no murmurs, rubs or gallops, peripheral pulses normal and equal bilaterally. ABDOMEN: Soft, nontender, normoactive bowel sounds. No guarding, no rebound. No masses EXTREMITIES: Normal inspection, Normal range of motion, no edema. No clubbing or cyanosis. NEUROLOGICAL: Cranial nerves II through XII grossly intact. Normal speech, no focal sensorimotor deficits, somnolent, not following complex commands SKIN: Warm, Dry, normal turgor, no rashes or lesions noted. CBCD WBC 16.7 K/mm3 (4.0-10.0) H 07/04/17 06:50 RBC 5.33 M/mm3 (3.60-5.2) H 07/04/17 06:50 Hgb 15.3 GM/dL (10.7-15.3) 07/04/17 06:50 Hct 48.4 % (32.4-45.2) H 07/04/17 06:50 MCV 90.9 fl (80-96) 07/04/17 06:50 MCHC 31.6 g/dl (32.0-36.0) L 11/21/17 06:50 RDW 16.5 % (11.6-15.6) H 07/04/17 06:50 Plt Count 315 K/MM3 (134-434) 07/04/17 06:50 MPV 8.6 fl (7.5-11.1) 07/04/17 06:50 CMP Sodium 137 mmol/L (136-145) 07/04/17 06:49 Potassium 4.5 mmol/L (3.5-5.1) 07/04/17 06:49 Chloride 99 mmol/L (98-107) 07/04/17 06:49 Carbon Dioxide 31 mmol/L (21-32) 07/04/17 06:49 Anion Gap 7 (8-16) L 07/04/17 06:49 BUN 25 mg/dL (7-18) H 07/04/17 06:49 Creatinine 0.9 mg/dL (0.55-1.02) D 07/04/17 06:49 Creat Clearance w eGFR 46.47 (>60) 07/03/17 10:03 Calcium 8.1 mg/dL (8.5-10.1) L 07/04/17 06:49 Total Bilirubin 0.4 mg/dL (0.2-1.0) D 07/03/17 10:03 AST 19 U/L (15-37) D 07/03/17 10:03 ALT 37 U/L (12-78) D 07/03/17 10:03 Alkaline Phosphatase 136 U/L (45-117) H D 07/03/17 10:03 Total Protein 7.6 g/dl (6.4-8.2) 07/03/17 10:03 Albumin 3.4 g/dl (3.4-5.0) 07/03/17 10:03 - RADIOLOGY MRI brain completed and reviewed MRI brain with contrast reviewed Medical Decision Making 57F with history of HTN, IDDM, Asthma/COPD, CHF and presented for shortness of breath after inhaling chemicals from a bug bomb. Paramedics reported that she was exposed to tetramethrin and cypermethrin. Patient reports associated cough, wheezing, back pain and foot pain after exposure. She denies feeling ill before exposure. She was admitted to the hospital and CT head completed, reviewed images and report. Radiologist suggested MRI brain which was completed and showed extensive white matter changes. She is on telemetry monitoring and more arousable now. No focal deficits and more interactive at this time. MRI brain with contrast reviewed, white matter changes noted Does not have clinical signs or symptoms of demylination Maintain adequate hydration Blood pressure control, maintain < 140/90 Continue anti-HTN medication Neurologically stable at this time for discharge
[2017-07-05] MEDS: INSULIN DETEMIR 100 UNITS/ML MDV SQ SCH ×2 (10:31→17:52)
[2017-07-05] MEDS: amLODIPine BESYLATE 5 MG TABLET (FP) PO SCH (10:32)
[2017-07-05] MEDS: SPIRONOLACTONE 25 MG TABLET (FP) PO SCH (10:32)
[2017-07-05] MEDS: METOPROLOL TARTRATE 50 MG TABLET (FP) PO SCH (10:32)
[2017-07-05] MEDS: HEPARIN NA (PORCINE) 5,000 UNITS/ML 1ML VIAL SQ SCH (10:32)
[2017-07-05] MEDS: FUROSEMIDE 40 MG TABLET (FP) PO SCH ×2 (10:37→15:18)
[2017-07-05] MEDS: predniSONE 10 MG TABLET (UD) PO SCH ×2 (10:37)
[2017-07-05] MEDS: RAMIPRIL 2.5 MG CAPSULE (FP) PO SCH ×2 (10:37)
[2017-07-05] MEDS: ALBUTEROL SO4 2.5/IPRATROPIUM 0.5 INH SOL 3 ML VIAL.NEB. NEB PRN (11:20)
[2017-07-05] MEDS: CEFTRIAXONE 2 GM in DEXTROSE 5%-WATER - 100 ML IVPB SCH (12:24)
--- NOTE | 2017-07-05 13:09 | PN ---
Progress Note, Physician History of Present Illness: Pt seen and examined at bedside. She is awake and alert. She says she feels better. - Current Medication List Current Medications: Active Medications Acetaminophen (Tylenol -) 650 mg PO Q6H PRN PRN Reason: FEVER OR PAIN Albuterol/Ipratropium (Duoneb -) 1 amp NEB Q6H PRN PRN Reason: SHORTNESS OF BREATH Last Admin: 07/05/17 11:20 Dose: 1 amp Alprazolam (Xanax -) 0.25 mg PO Q12H PRN Last Admin: 07/05/17 03:19 Dose: 0.25 mg Amlodipine Besylate (Norvasc -) 5 mg PO DAILY [facility] Last Admin: 07/05/17 10:32 Dose: 5 mg Atorvastatin Calcium (Lipitor -) 10 mg PO HS [facility] Last Admin: 07/04/17 21:33 Dose: 10 mg Furosemide (Lasix -) 40 mg PO BID@0600,1400 [facility] Last Admin: 07/05/17 10:37 Dose: 40 mg Heparin Sodium (Porcine) (Heparin -) 5,000 unit SQ BID [facility] Last Admin: 07/05/17 10:32 Dose: 5,000 unit Ceftriaxone Sodium 2 gm/ (Dextrose) 100 mls @ 200 mls/hr IVPB DAILY [facility] Last Admin: 07/05/17 12:24 Dose: 200 mls/hr Insulin Aspart (Novolog Vial Sliding Scale -) 1 vial SQ ACHS [facility] PRN Reason: Protocol Last Admin: 07/05/17 12:24 Dose: 6 units Insulin Detemir (Levemir Vial) 36 units SQ BIDAC [facility] Last Admin: 07/05/17 10:31 Dose: Not Given Metoprolol Tartrate (Lopressor -) 50 mg PO BID [facility] Last Admin: 07/05/17 10:32 Dose: 50 mg Montelukast Sodium (Singulair -) 10 mg PO HS [facility] Last Admin: 07/04/17 21:32 Dose: 10 mg Prednisone (Deltasone -) 10 mg PO BID [facility] Last Admin: 07/05/17 10:37 Dose: 10 mg Ramipril (Altace -) 2.5 mg PO DAILY [facility] Last Admin: 07/05/17 10:37 Dose: 2.5 mg Spironolactone (Aldactone -) 25 mg PO DAILY [facility] Last Admin: 07/05/17 10:32 Dose: 25 mg - Objective Vital Signs: Vital Signs Temperature 98 F 07/05/17 09:00 Pulse Rate 84 07/05/17 11:05 Respiratory Rate 20 07/05/17 09:00 Blood Pressure 106/66 07/05/17 09:00 O2 Sat by Pulse Oximetry (%) 93 L 07/05/17 11:05 Constitutional: Yes: Calm Eyes: Yes: Conjunctiva Clear HENT: Yes: Atraumatic Neck: Yes: Supple Cardiovascular: Yes: S1, S2 Respiratory: Yes: CTA Bilaterally Gastrointestinal: Yes: Soft, Abdomen, Obese Genitourinary: Yes: WNL Musculoskeletal: Yes: WNL Edema: No Neurological: Yes: Oriented Psychiatric: Yes: Oriented Labs: CBC, BMP 07/04/17 06:50 07/04/17 06:49 Problem List - Problems (1) Hematuria Code(s): R31.9 - HEMATURIA, UNSPECIFIED (2) CHF (congestive heart failure) Code(s): I50.9 - HEART FAILURE, UNSPECIFIED Qualifiers: Congestive heart failure type: unspecified congestive heart failure type Congestive heart failure chronicity: acute on chronic Qualified Code(s): I50.9 - Heart failure, unspecified (3) COPD exacerbation Code(s): J44.1 - CHRONIC OBSTRUCTIVE PULMONARY DISEASE W (ACUTE) EXACERBATION Assessment/Plan Current Medications Generic Name Dose Route Start Last Admin Trade Name Freq PRN Reason Stop Dose Admin Acetaminophen 650 mg 07/01/17 09:51 Tylenol - PO Q6H PRN FEVER OR PAIN Albuterol/Ipratropium 1 amp 07/01/17 09:51 07/05/17 11:20 Duoneb - NEB 1 amp Q6H PRN Administration SHORTNESS OF BREATH Alprazolam 0.25 mg 07/04/17 14:03 07/05/17 03:19 Xanax - PO 0.25 mg Q12H PRN Administration Amlodipine Besylate 5 mg 07/01/17 10:00 07/05/17 10:32 Norvasc - PO 5 mg DAILY [facility] Administration Atorvastatin Calcium 10 mg 07/01/17 10:00 07/04/17 21:33 Lipitor - PO 10 mg HS [facility] Administration Furosemide 40 mg 07/05/17 09:15 07/05/17 10:37 Lasix - PO 40 mg BID@0600,1400 [facility] Administration Heparin Sodium (Porcine) 5,000 unit 07/01/17 10:45 07/05/17 10:32 Heparin - SQ 5,000 unit BID [facility] Administration Ceftriaxone Sodium 2 gm/ 100 mls @ 200 mls/hr 07/03/17 15:30 07/05/17 12:24 Dextrose IVPB 200 mls/hr DAILY [facility] Administration Insulin Aspart 1 vial 07/03/17 22:00 07/05/17 12:24 Novolog Vial Sliding Scale - SQ 6 units ACHS [facility] Administration Protocol Insulin Detemir 36 units 07/04/17 07:00 07/05/17 10:31 Levemir Vial SQ Not Given BIDAC [facility] Metoprolol Tartrate 50 mg 07/01/17 10:00 07/05/17 10:32 Lopressor - PO 50 mg BID [facility] Administration Montelukast Sodium 10 mg 07/01/17 10:00 07/04/17 21:32 Singulair - PO 10 mg HS [facility] Administration Prednisone 10 mg 07/05/17 09:15 07/05/17 10:37 Deltasone - PO 10 mg BID [facility] Administration Ramipril 2.5 mg 07/05/17 09:15 07/05/17 10:37 Altace - PO 2.5 mg DAILY [facility] Administration Spironolactone 25 mg 07/01/17 10:00 07/05/17 10:32 Aldactone - PO 25 mg DAILY [facility] Administration Impression 1. CONNER 2. DM uncontrolled 3. CHF 4. copd 5. htn 6. microscopic hematuria Plan - cont current meds - will need outpt renal follow up - no bmp today - blood sugars are improved - pt will monitor blood sugar more closely - renal ultrasound reviewed, will repeat urine studies in office - cont with diuretics - will follow Dr Lawrence
[2017-07-05 14:07] VITALS: BP 117/77; PULSE 77; TEMP 98.1
== END 2017-07-05 19:36 | disposition home or self-care (01) | DRG 917 ==
LOC: JER 02:08 → JERBED 06:31 → UNDOADMIN 06:32 → J6S 07:37 → J2W 11:14 → J4S 07-02 07:02
PROVIDERS: ADMIT Family Medicine; ATTEND Family Medicine
DX: T60.2X1A Toxic effect of other insecticides, accidental (unintentional), initial encounter (principal); J18.9 Pneumonia, unspecified organism; G92 Toxic encephalopathy; J44.1 Chronic obstructive pulmonary disease with (acute) exacerbation; I42.9 Cardiomyopathy, unspecified; N17.9 Acute kidney failure, unspecified; J21.9 Acute bronchiolitis, unspecified; I50.22 Chronic systolic (congestive) heart failure; E10.65 Type 1 diabetes mellitus with hyperglycemia; G35 Multiple sclerosis; R31.29 Other microscopic hematuria; I11.0 Hypertensive heart disease with heart failure; R74.8 Abnormal levels of other serum enzymes; D75.1 Secondary polycythemia; R53.83 Other fatigue; Y92.89 Other specified places as the place of occurrence of the external cause; Z79.4 Long term (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 of insulin
CPT/HCPCS: 36415; 36600; 70450-TC; 70551-TC; 70552-TC; 71010-TC; 71020-TC; 71250-TC; 76775-TC; 76856-TC; 80048; 80053; 81003; 81015; 82009; 82140; 82607; 82803; 82947; 83036; 83880; 84443; 85025; 85027; 87040; 87070; 87205; 87899; 90688; 93005; 93010; 93306-TC; 94640; 94761; 97116-GP; 97161-GP; 99284-25; J1644

== ENCOUNTER 2017-07-23 04:27 | Emergency (ER) | payer OTHER ==
--- NOTE | 2017-07-23 04:56 | PDOC ---
History of Present Illness - General History Source: Patient Exam Limitations: No Limitations - History of Present Illness Initial Comments: 07/23/17 05:24 The patient is a 57 year old female with a significant PMH of HTN, insulin- dependent diabetes, asthma/COPD (on home O2 as needed), CHF, polycythemia, and chronic knee pain who presents to the emergency department with cough and shortness of breath beginning approximately yesterday. The patient also reports bilateral knee pain, which is chronic, and left flank pain. The patients daughter reports that the patient does not like using her home O2 as it drys her nose and makes her bleed. The patients daughter notes that the patients grandsons had RSV and strep throat recently, respectively. The patient denies receiving this years flu shot. The patient denies chest pain, shortness of breath, headache and dizziness. Denies fever, chills, nausea, vomit, diarrhea and constipation. Denies dysuria, frequency, urgency and hematuria. Allergies: NKA Past surgical history: Cholecystectomy (1988). Social history: Current everyday smoker (6 cigs/day). No reported alcohol or drug use. PCP: Dr. Hsu <Bob Sierra - Last Filed: 07/23/17 05:24> <Rakel Valencia - Last Filed: 07/23/17 19:56> - General Chief Complaint: Shortness of Breath Stated Complaint: COUGH Time Seen by Provider: 07/23/17 04:45 Past History <Bob Sierra - Last Filed: 07/23/17 05:24> - Past Medical History Asthma: Yes Diabetes: Yes HTN: Yes Hypercholesterolemia: Yes - Surgical History Cholecystectomy: Yes - Suicide/Smoking/Psychosocial Hx Smoking History: Current every day smoker Have you smoked in the past 12 months: Yes Number of Cigarettes Smoked Daily: 6 If you are a former smoker, when did you quit?: 1 month ago Cigars Per Day: 0 Information on smoking cessation initiated: Yes 'Breaking Loose' booklet given: 07/01/17 Hx Alcohol Use: No Drug/Substance Use Hx: No Substance Use Type: None Hx Substance Use Treatment: No <Rakel Valencia - Last Filed: 07/23/17 19:56> - Past Medical History Allergies/Adverse Reactions: Allergies Allergy/AdvReac Type Severity Reaction Status Date / Time No Known Allergies Allergy Verified 07/23/17 05:39 Home Medications: Ambulatory Orders Albuterol 2.5/Ipratropium 0.5 [Duoneb -] 1 neb NEB Q4H PRN #180 amp 05/03/17 Atorvastatin Ca [Lipitor] 10 mg PO HS #30 tab 05/03/17 Dapagliflozin Propanediol [Farxiga] 10 mg PO DAILY #30 tab 05/03/17 Doxycycline Hyclate [Vibramycin -] 100 mg PO BID@1000,1800 #6 cap 05/03/17 Insulin (Levemir) [Levemir Flexpen -] 50 units SQ BID 30 Days each 05/03/17 Linaclotide [Linzess] 145 mcg PO DAILY #30 cap 05/03/17 Metoprolol Tartrate [Lopressor -] 50 mg PO BID #30 tablet 05/03/17 Montelukast Na [Singulair -] 10 mg PO HS #30 tab 05/03/17 Nystatin Oral Suspension - [Nystatin Oral Susp 440835 Units/5 ML -] 500,000 units PO Q6HPO 10 Days ml 05/03/17 Spironolactone [Aldactone -] 25 mg PO DAILY #30 tablet 05/03/17 Amlodipine Besylate [Norvasc -] 5 mg PO DAILY #30 tablet 07/05/17 Cefuroxime Axetil [Ceftin -] 500 mg PO BID #14 tablet 07/05/17 Furosemide [Lasix -] 40 mg PO BID@0600,1400 #60 tablet 07/05/17 Prednisone [Deltasone -] 10 mg PO BID #60 tablet 07/05/17 Ramipril [Altace] 2.5 mg PO DAILY #30 capsule 07/05/17 Prednisone [Deltasone -] 40 mg PO DAILY #5 tablet 07/23/17 Review of Systems - Review of Systems Able to Perform ROS?: Yes Comments:: 07/23/17 05:24 GENERAL/CONSTITUTIONAL: No fever or chills. No weakness. HEAD, EYES, EARS, NOSE AND THROAT: No change in vision. No ear pain or discharge. No sore throat. CARDIOVASCULAR: (+) Shortness of breath. No chest pain. RESPIRATORY: (+) Cough. No wheezing, or hemoptysis. GASTROINTESTINAL: No nausea, vomiting, diarrhea or constipation. GENITOURINARY: No dysuria, frequency, or change in urination. MUSCULOSKELETAL: (+) Left flank pain. No joint pain. No neck or back pain. SKIN: No rash NEUROLOGIC: No headache, vertigo, loss of consciousness, or change in strength/ sensation. ENDOCRINE: No increased thirst. No abnormal weight change. HEMATOLOGIC/LYMPHATIC: No anemia, easy bleeding, or history of blood clots. ALLERGIC/IMMUNOLOGIC: No hives or skin allergy. <Bob Sierra - Last Filed: 07/23/17 05:24> *Physical Exam - Vital Signs Last Vital Signs Temp Pulse Resp BP Pulse Ox 98.9 F 110 H 18 130/92 96 07/23/17 04:45 07/23/17 04:45 07/23/17 04:45 07/23/17 04:45 07/23/17 04:45 - Physical Exam Comments: 07/23/17 05:25 GENERAL: Awake, alert, and fully oriented, in no acute distress HEAD: No signs of trauma EYES: PERRLA, EOMI, sclera anicteric, conjunctiva clear ENT: Auricles normal inspection, hearing grossly normal, nares patent, oropharynx clear without exudates. Moist mucosa NECK: Normal ROM, supple, no lymphadenopathy, JVD, or masses LUNGS: (+) Decreased breath sounds. Breath sounds equal, clear to auscultation bilaterally. No wheezes, and no crackles HEART: Regular rate and rhythm, normal S1 and S2, no murmurs, rubs or gallops ABDOMEN: Soft, nontender, normoactive bowel sounds. No guarding, no rebound. No masses EXTREMITIES: Normal range of motion, no edema. No clubbing or cyanosis. No cords, erythema, or tenderness NEUROLOGICAL: Cranial nerves II through XII grossly intact. Normal speech. SKIN: Warm, Dry, normal turgor, no rashes or lesions noted. <Bob Sierra - Last Filed: 07/23/17 05:24> - Vital Signs Last Vital Signs Temp Pulse Resp BP Pulse Ox 98.9 F 110 H 18 130/92 96 07/23/17 04:45 07/23/17 04:45 07/23/17 04:45 07/23/17 04:45 07/23/17 04:45 <Rakel Valencia - Last Filed: 07/23/17 19:56> ED Treatment Course - LABORATORY CBC & Chemistry Diagram: 07/23/17 05:01 07/23/17 05:01 - ADDITIONAL ORDERS Additional order review: 07/23/17 05:01 RBC 5.38 H MCV 91.9 MCHC 33.3 RDW 17.2 H MPV 8.1 - Medications Given in the ED: ED Medications Discontinued Medications Generic Name Dose Route Start Last Admin Trade Name Corey PRN Reason Stop Dose Admin Methylprednisolone Sodium Succinate 125 mg 07/23/17 05:11 07/23/17 05:21 Solu-Medrol - IVPB 07/23/17 05:12 125 mg ONCE ONE Administration <Bob Sierra - Last Filed: 07/23/17 05:24> - LABORATORY CBC & Chemistry Diagram: 07/23/17 05:01 07/23/17 05:01 <Rakel Valencia - Last Filed: 07/23/17 19:56> Medical Decision Making - Medical Decision Making 07/23/17 05:40 CXR appears normal 07/23/17 06:36 Pt comes with COPD exacerbation. She has home oxygen, and she has been uncomfortable on it. She is a current smoker. Pt didn't get her flu vaccine this year. Pt's 2 grandchildren are ill. Once has RSV and the other has sore throat/step throat. Pt has no complaint of sore throat. Only cough and SOB. 07/23/17 06:38 Influenza is normal; pt doesn't have the flu. 07/23/17 06:38 Pt is a bit dry/dehydrated; WBC is normal. Pt has an elevated blood sugar. Likely viral syndrome. However, we will get a CXR. 07/23/17 19:56 Pt signed out to the day team. <Rakel Valencia - Last Filed: 07/23/17 19:56> *DC/Admit/Observation/Transfer - Attestations Scribe Attestion: 07/23/17 05:25 Documentation prepared by Bob Sierra, acting as medical office technology instructor for Rakel Valencia MD. <Bob Sierra - Last Filed: 07/23/17 05:24> <Rakel Valencia - Last Filed: 07/23/17 19:56> Diagnosis at time of Disposition: COPD exacerbation, Bronchiolitis, Shortness of breath, Asthmatic bronchitis, Hyperglycemia - Discharge Dispostion Disposition: HOME Condition at time of disposition: Improved - Prescriptions Prescriptions: Prednisone [Deltasone -] 40 mg PO DAILY #5 tablet - Referrals Referrals: Ronnie Hus MD [Primary Care Provider] - - Patient Instructions Printed Discharge Instructions: DI for Chronic Obstructive Pulmonary Disease, DI for Hyperglycemia -- Adult Additional Instructions: Use albuterol inhaler 2 puffs every 4 hours as needed for cough or wheezing take prednisone 40 mg daily 5 days be sure to follow up with Dr. hsu, This week call to schedule. Return for any worsening shortness of breath high fevers vomiting chest pain or any concerns - Post Discharge Activity
[2017-07-23 04:58] VITALS: TEMP 98.9; BMI 35.4
[2017-07-23] MEDS ORDERED: ALBUTEROL SO4 2.5/IPRATROPIUM 0.5 INH SOL 3 ML VIAL.NEB. NEB ONE ×3 (05:11→08:18)
[2017-07-23] MEDS ORDERED: methylPREDNISolone NA SUCC 125 MG/2 ML VIAL IVPB ONE (05:11)
[2017-07-23] MEDS ORDERED: methylPREDNISolone NA SUCC 125 MG/2 ML VIAL ONE (05:12)
[2017-07-23 05:16] LABS: MCH 30.6 pg (25.7-33.7); MCHC 33.3 g/dl (32.0-36.0); MEAN CELL VOLUME 91.9 fl (80-96); MEAN PLT VOLUME 8.1 fl (7.5-11.1); PLATELET COUNT 330 K/MM3 (134-434); RDW 17.2 % (11.6-15.6); WHITE BLOOD COUNT 6.6 K/mm3 (4.0-10.0)
[2017-07-23 05:36] LABS: INR 0.98 (0.82-1.09); PROTHROMBIN TIME (PATIENT) 11.1 SEC (9.98-11.88)
[2017-07-23 05:51] LABS: ALBUMIN 3.3 g/dl (3.4-5.0); ANION GAP 9 (8-16); BILIRUBIN,TOTAL 0.2 mg/dL (0.2-1.0); CALCIUM 8.8 mg/dL (8.5-10.1); CO2 28 mmol/L (21-32); CREATININE 1.3 mg/dL (0.55-1.02); SGOT/AST 12 U/L (15-37); SGPT/ALT 25 U/L (12-78); TOT PROT 7.3 g/dl (6.4-8.2)
[2017-07-23 05:53] LABS: ALK PHOS 191 U/L (45-117)
[2017-07-23 05:58] LABS: GLUCOSE,RANDOM 389 mg/dL (74-106)
[2017-07-23] MEDS ORDERED: INSULIN REGULAR HUMAN 100 UNITS/ML *VIAL IVPUSH ONE (05:59)
[2017-07-23] MEDS ORDERED: INSULIN REGULAR HUMAN 100 UNITS/ML *VIAL ONE (06:01)
[2017-07-23] MEDS ORDERED: SODIUM CHLORIDE 0.9% 500 ML INFUS.BAG IV ONE (06:39)
[2017-07-23] MEDS ORDERED: SODIUM CHLORIDE 0.9% 1000 ML INFUS.BAG IV ONE (08:13)
--- NOTE | 2017-07-23 08:18 | PDOC ---
*Physical Exam - Vital Signs Last Vital Signs Temp Pulse Resp BP Pulse Ox 98.9 F 110 H 18 130/92 96 07/23/17 04:45 07/23/17 04:45 07/23/17 04:45 07/23/17 04:45 07/23/17 04:45 <Manju Crespo - Last Filed: 07/23/17 09:17> - Vital Signs Last Vital Signs Temp Pulse Resp BP Pulse Ox 98.9 F 110 H 18 130/92 96 07/23/17 04:45 07/23/17 04:45 07/23/17 04:45 07/23/17 04:45 07/23/17 04:45 - Physical Exam General Appearance: Yes: Appropriately Dressed HEENT: positive: Normal ENT Inspection Neck: positive: Trachea midline Respiratory/Chest: positive: Lungs Clear, Normal Breath Sounds Cardiovascular: positive: Regular Rhythm, Regular Rate, S1, S2 Gastrointestinal/Abdominal: positive: Normal Bowel Sounds, Flat, Soft Musculoskeletal: positive: Normal Inspection Extremity: positive: Normal Capillary Refill Integumentary: positive: Normal Color, Dry, Warm Neurologic: positive: Fully Oriented, Alert, Normal Mood/Affect <Arina Spaulding - Last Filed: 07/23/17 09:23> ED Treatment Course - LABORATORY CBC & Chemistry Diagram: 07/23/17 05:01 07/23/17 05:01 - ADDITIONAL ORDERS Additional order review: Laboratory Results 07/23/17 07/23/17 07/23/17 06:35 05:01 05:01 PT with INR INR D-Dimer Sodium 139 Potassium 4.8 Chloride 102 Carbon Dioxide 28 Anion Gap 9 BUN 16 D Creatinine 1.3 H D Creat Clearance w eGFR 42.37 Random Glucose 389 H* Calcium 8.8 Total Bilirubin 0.2 D AST 12 L D ALT 25 D Alkaline Phosphatase 191 H D B-Natriuretic Peptide 315.70 H Total Protein 7.3 Albumin 3.3 L Lipase 216 Blood Type O POSITIVE Antibody Screen Negative 07/23/17 05:01 PT with INR 11.10 INR 0.98 D-Dimer 212 Sodium Potassium Chloride Carbon Dioxide Anion Gap BUN Creatinine Creat Clearance w eGFR Random Glucose Calcium Total Bilirubin AST ALT Alkaline Phosphatase B-Natriuretic Peptide Total Protein Albumin Lipase Blood Type Antibody Screen 07/23/17 05:03 Influenza Types A,B Antigen (CORNELIO) - Final Nasopharyngeal Swab - Final 07/23/17 05:01 RBC 5.38 H MCV 91.9 MCHC 33.3 RDW 17.2 H MPV 8.1 - Medications Given in the ED: ED Medications Discontinued Medications Generic Name Dose Route Start Last Admin Trade Name Corey PRN Reason Stop Dose Admin Albuterol/Ipratropium 1 amp 07/23/17 05:11 07/23/17 05:26 Duoneb - NEB 07/23/17 05:12 1 amp ONCE ONE Administration Insulin Human Regular 8 units 07/23/17 05:59 07/23/17 06:21 Novolin R Vial *For Ivpush Or Iv Drip Only* IVPUSH 07/23/17 06:00 8 unit ONCE ONE Administration Methylprednisolone Sodium Succinate 125 mg 07/23/17 05:11 07/23/17 05:21 Solu-Medrol - IVPB 07/23/17 05:12 125 mg ONCE ONE Administration Sodium Chloride 250 ml 07/23/17 06:39 07/23/17 06:48 Normal Saline - IV 07/23/17 06:40 250 ml ONCE ONE Administration <Manju Crespo - Last Filed: 07/23/17 09:17> - LABORATORY CBC & Chemistry Diagram: 07/23/17 05:01 07/23/17 05:01 - ADDITIONAL ORDERS Additional order review: Laboratory Results 07/23/17 07/23/17 07/23/17 06:35 05:01 05:01 PT with INR INR D-Dimer Sodium 139 Potassium 4.8 Chloride 102 Carbon Dioxide 28 Anion Gap 9 BUN 16 D Creatinine 1.3 H D Creat Clearance w eGFR 42.37 Random Glucose 389 H* Calcium 8.8 Total Bilirubin 0.2 D AST 12 L D ALT 25 D Alkaline Phosphatase 191 H D B-Natriuretic Peptide 315.70 H Total Protein 7.3 Albumin 3.3 L Lipase 216 Blood Type O POSITIVE Antibody Screen Negative 07/23/17 05:01 PT with INR 11.10 INR 0.98 D-Dimer 212 Sodium Potassium Chloride Carbon Dioxide Anion Gap BUN Creatinine Creat Clearance w eGFR Random Glucose Calcium Total Bilirubin AST ALT Alkaline Phosphatase B-Natriuretic Peptide Total Protein Albumin Lipase Blood Type Antibody Screen 07/23/17 05:03 Influenza Types A,B Antigen (CORNELIO) - Final Nasopharyngeal Swab - Final 07/23/17 05:01 RBC 5.38 H MCV 91.9 MCHC 33.3 RDW 17.2 H MPV 8.1 - Medications Given in the ED: ED Medications Discontinued Medications Generic Name Dose Route Start Last Admin Trade Name Corey PRN Reason Stop Dose Admin Albuterol/Ipratropium 1 amp 07/23/17 05:11 07/23/17 05:26 Duoneb - NEB 07/23/17 05:12 1 amp ONCE ONE Administration Insulin Human Regular 8 units 07/23/17 05:59 07/23/17 06:21 Novolin R Vial *For Ivpush Or Iv Drip Only* IVPUSH 07/23/17 06:00 8 unit ONCE ONE Administration Methylprednisolone Sodium Succinate 125 mg 07/23/17 05:11 07/23/17 05:21 Solu-Medrol - IVPB 07/23/17 05:12 125 mg ONCE ONE Administration Sodium Chloride 250 ml 07/23/17 06:39 07/23/17 06:48 Normal Saline - IV 07/23/17 06:40 250 ml ONCE ONE Administration <Arina Spaulding - Last Filed: 07/23/17 09:23> Medical Decision Making - Medical Decision Making 07/23/17 08:13am Call was placed to Dr. Hsu's answering service, awaiting call back 9:09pm A second call was placed to Dr. Hsu, case was discussed. <Manju Crespo - Last Filed: 07/23/17 09:17> - Medical Decision Making 07/23/17 08:14 57-year-old female signed out to me by Dr. Brown with a history of COPD and diabetes here with shortness of breath cough known sick contacts and elevated blood sugars in the 300s. Patient was given insulin small amount of IV fluids nebs states overall she is feeling much improved like to go home did have a flu swab which was negative discuss with Dr. Hsu. On exam patient is sleeping comfortably but arousable lungs are clear bilaterally without audible wheezing no acute distress heart is regular no murmurs rubs or gallops skin is warm and dry semis are warm well perfused no noted edema Plan patient feels improved we'll recheck glucose administer 1 more DuoNeb and discussed With Dr. hsu for likely outpatient follow-up 07/23/17 09:[address] Hsu patient can follow-up as an outpatient feels better given prescription for prednisone 40 mg sugars improved in the 200s <Arina Spaulding - Last Filed: 07/23/17 09:23> *DC/Admit/Observation/Transfer - Attestations Scribe Attestion: 07/23/17 08:28 Documentation prepared by Manju Crespo, acting as medical doctor md/medical director for Arina Spaulding MD, MD. <Manju Crespo - Last Filed: 07/23/17 09:17> - Discharge Dispostion Admit: No <Arina Spaulding - Last Filed: 07/23/17 09:23> Diagnosis at time of Disposition: COPD exacerbation, Bronchiolitis, Shortness of breath, Asthmatic bronchitis, Hyperglycemia - Discharge Dispostion Disposition: HOME Condition at time of disposition: Improved - Prescriptions Prescriptions: Prednisone [Deltasone -] 40 mg PO DAILY #5 tablet - Referrals Referrals: Ronnie Hsu MD [Primary Care Provider] - - Patient Instructions Printed Discharge Instructions: Chronic Obstructive Pulmonary Disease ( Alternative Therapy), DI for Hyperglycemia -- Adult Additional Instructions: Use albuterol inhaler 2 puffs every 4 hours as needed for cough or wheezing take prednisone 40 mg daily 5 days be sure to follow up with Dr. hsu, This week call to schedule. Return for any worsening shortness of breath high fevers vomiting chest pain or any concerns - Post Discharge Activity
[2017-07-23 09:46] VITALS: BP 110/77; PULSE 68
== END 2017-07-23 09:30 | disposition home or self-care (01) ==
LOC: JER 04:27
PROC: 3E0337Z Introduction of Electrolytic and Water Balance Substance into Peripheral Vein, Percutaneous Approach (ICD-10-PCS; principal; 2017-07-23)
PROC: 3E0F7GC Introduction of Other Therapeutic Substance into Respiratory Tract, Via Natural or Artificial Opening (ICD-10-PCS; 2017-07-23)
PROC: 3E033VG Introduction of Insulin into Peripheral Vein, Percutaneous Approach (ICD-10-PCS; 2017-07-23)
PROC: 3E033GC Introduction of Other Therapeutic Substance into Peripheral Vein, Percutaneous Approach (ICD-10-PCS; 2017-07-23)
DX: J44.1 Chronic obstructive pulmonary disease with (acute) exacerbation (principal); J45.909 Unspecified asthma, uncomplicated; R06.02 Shortness of breath; E11.65 Type 2 diabetes mellitus with hyperglycemia; Z79.4 Long term (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 of insulin
CPT/HCPCS: 36415; 71020-TC; 80053; 83690; 83880; 85027; 85379; 85610; 86850; 86900; 86901; 87804; 94640; 96374; 96375; 99284-25

== ENCOUNTER 2017-08-29 12:24 | Inpatient (IN) | payer OTHER ==
[2017-08-29 12:34] VITALS: BMI 38.9
--- NOTE | 2017-08-29 12:37 | PDOC ---
History of Present Illness - General Chief Complaint: Edema Stated Complaint: SWOLLEN FEET Time Seen by Provider: 08/29/17 12:37 - History of Present Illness Initial Comments: The patient is a 57 year old female with a significant PMH of HTN, insulin- dependent diabetes, asthma/COPD (on home O2 @ 2.5 L), CHF, polycythemia, and chronic knee pain presenting with increased bilateral pitting edema and slightly worsened SOB (no change in O2 requirement) for the past three weeks. Patient states that she has been taking her lasix 4 0PO BID and her spirinolactone as instructed but her swelling has gotten worse over the past three weeks. Also admits to a cough with occasional warmth over the same period of time occasionally productive of green sputum. She has been constipated over the past 4 days as well that hasn't resolved with an enema. Denies chest pain, nausea, vomiting, dysuria, or syncope. Her PCP is Dr. Polo but she wasn't able to scheduel an appointment sooner than 2 weeks from now so she came into the ED. 08/29/17 12:51 Past History - Past Medical History Allergies/Adverse Reactions: Allergies Allergy/AdvReac Type Severity Reaction Status Date / Time No Known Allergies Allergy Verified 08/29/17 12:29 Home Medications: Ambulatory Orders Albuterol 2.5/Ipratropium 0.5 [Duoneb -] 1 neb NEB Q4H PRN #180 amp 05/03/17 Atorvastatin Ca [Lipitor] 10 mg PO HS #30 tab 05/03/17 Dapagliflozin Propanediol [Farxiga] 10 mg PO DAILY #30 tab 05/03/17 Doxycycline Hyclate [Vibramycin -] 100 mg PO BID@1000,1800 #6 cap 05/03/17 Insulin (Levemir) [Levemir Flexpen -] 50 units SQ BID 30 Days each 05/03/17 Linaclotide [Linzess] 145 mcg PO DAILY #30 cap 05/03/17 Metoprolol Tartrate [Lopressor -] 50 mg PO BID #30 tablet 05/03/17 Montelukast Na [Singulair -] 10 mg PO HS #30 tab 05/03/17 Nystatin Oral Suspension - [Nystatin Oral Susp 237077 Units/5 ML -] 500,000 units PO Q6HPO 10 Days ml 05/03/17 Spironolactone [Aldactone -] 25 mg PO DAILY #30 tablet 05/03/17 Amlodipine Besylate [Norvasc -] 5 mg PO DAILY #30 tablet 07/05/17 Cefuroxime Axetil [Ceftin -] 500 mg PO BID #14 tablet 07/05/17 Furosemide [Lasix -] 40 mg PO BID@0600,1400 #60 tablet 07/05/17 Prednisone [Deltasone -] 10 mg PO BID #60 tablet 07/05/17 Ramipril [Altace] 2.5 mg PO DAILY #30 capsule 07/05/17 Prednisone [Deltasone -] 40 mg PO DAILY #5 tablet 07/23/17 Asthma: Yes COPD: No DVT: No Diabetes: Yes HTN: Yes Hypercholesterolemia: Yes - Surgical History Cholecystectomy: Yes - Immunization History Immunization Up to Date: Yes - Suicide/Smoking/Psychosocial Hx Smoking History: Never smoked Have you smoked in the past 12 months: Yes Number of Cigarettes Smoked Daily: 6 If you are a former smoker, when did you quit?: 1 month ago Cigars Per Day: 0 Information on smoking cessation initiated: No 'Breaking Loose' booklet given: 07/01/17 Hx Alcohol Use: No Drug/Substance Use Hx: No Substance Use Type: None Hx Substance Use Treatment: No Review of Systems - Review of Systems Constitutional: No: Chills, Diaphoresis, Fever, Loss of Appetite, Weakness HEENTM: No: Blurred Vision Respiratory: Yes: Cough, Shortness of Breath, Productive cough. No: Hemoptysis Cardiac (ROS): Yes: Edema. No: Chest Pain, Irregular Heart Rate ABD/GI: Yes: Abdominal Distended, Constipated. No: Diarrhea : No: Burning, Dysuria Musculoskeletal: No: Back Pain Integumentary: No: Change in Color, Lesions Neurological: No: Headache, Numbness, Paresthesia *Physical Exam - Vital Signs Last Vital Signs Temp Pulse Resp BP Pulse Ox 98.4 F 119 H 16 135/94 95 08/29/17 12:29 08/29/17 12:29 08/29/17 12:29 08/29/17 12:29 08/29/17 12:29 - Physical Exam General Appearance: Yes: Nourished, Appropriately Dressed. No: Apparent Distress HEENT: positive: EOMI, REESE, Normal ENT Inspection, Normal Voice Neck: positive: Trachea midline, Normal Thyroid, Supple. negative: Tender, Rigid Respiratory/Chest: positive: Decreased Breath Sounds (distant breath sounds bilaterally6 with delayed expiratory phase), Crackles (Bilateral basilar crackles (faint)). negative: Chest Tender, Lungs Clear, Normal Breath Sounds, Respiratory Distress, Accessory Muscle Use Cardiovascular: positive: Regular Rhythm, Tachycardia. negative: Regular Rate, Murmur Gastrointestinal/Abdominal: positive: Normal Bowel Sounds, Distended, Other. negative: Tender, Flat, Soft (overall distended and slightly firm but no pain) Musculoskeletal: negative: Normal Inspection (Per below) Extremity: positive: Normal Capillary Refill, Normal Range of Motion, Pedal Edema (Bilateral pitting edema R>L 3+ to the knees). negative: Normal Inspection, Tender Neurologic: positive: Fully Oriented, Alert, Normal Mood/Affect, Normal Response , Motor Strength 5/ ED Treatment Course - LABORATORY CBC & Chemistry Diagram: 08/29/17 13:37 08/29/17 13:30 Medical Decision Making - Medical Decision Making 57 year old female with a significant PMH of HTN, insulin-dependent diabetes, asthma/COPD (2.5 L), CHF, polycythemia, and chronic knee pain presenting with worsenign bilateral LE pitting edema, slightly worsened SOB, cough ( occasionally productive), and constipation over the past three weeks. PE significant for 3+ bilateral pitting edema R>L, decreased lung sounds with bilateral LLF faint crackles, and abdominal firmnes without pain. SOB and pitting edema likely related to worsening CHF (related to subtherapetuic lasix, new cardiac pathology, or recent URI) vs. new onset Afib vs PE vs. PNA vs. blood dyscrasia. ABdominal distenson likely constipation given lack of pain and relatively normal appetite possibly in the setting of increased bowel gut edema 2/2 CHF exacerbation. Will give lasix 40 IV, get CXR, RLE doppler, CBC, CMP, BNP , cardiac panel, EKG, and re-evaluate patient for further workup (including CTA , therapeutic rate control, etc) 08/29/17 13:20 Labs returned signifcant for BNP of 2500 compared to highest in our system of 1300 and last recorded at 300. CBC and CMP significant for slightly elevated Alk Phos, CK, and positive troponin of 0.13. Asa ordered. EKG pending as patient is fetting her RLE ultrasound. 08/29/17 14:[address] Polo, she has possible drug use history and had an LHC on 11/28 at [facility] that was negative for ischemic heart disease but a recent echo in our records (07/03/17) that sdemonstrates EF 45% mod RA dilation, Mod MR, and mild TR. Will add on UDS. Pending EKG and CXR or admission. 08/29/17 14:54 EKG demonstrating poor R wave progression in lateral leads and possible new Q wave in V3, V4 08/29/17 16:18 Good output with 40 IV Lasix. Spoke to Dr. Winkler and will admit the patient for serial troponins, and further IV diuresis. 08/29/17 17:36 *DC/Admit/Observation/Transfer Diagnosis at time of Disposition: Acute on chronic systolic (congestive) heart failure - Discharge Dispostion Condition at time of disposition: Stable Admit: Yes - Referrals - Patient Instructions - Post Discharge Activity
[2017-08-29] MEDS ORDERED: FUROSEMIDE 40 MG/4 ML INJECTABLE VIAL IVPUSH ONE (13:03)
[2017-08-29] MEDS ORDERED: FUROSEMIDE 40 MG/4 ML INJECTABLE VIAL ONE (13:24)
[2017-08-29] MEDS ORDERED: ALBUTEROL SO4 2.5/IPRATROPIUM 0.5 INH SOL 3 ML VIAL.NEB. NEB ONE ×2 (13:35→14:46)
--- NOTE | 2017-08-29 13:38 | PDOC ---
Attending Attestation - Resident Resident Name: Annie Larsen - ED Attending Attestation I have performed the following: I have examined & evaluated the patient, The case was reviewed & discussed with the resident, I agree w/resident's findings & plan, Exceptions are as noted - HPI HPI: 08/29/17 13:35 57-year-old female with history of COPD, CHF presents with 2-3 weeks of worsening volume overload with dyspnea on exertion and leg swelling. Patient takes 80 mg of Lasix daily and reports compliance, last admission for volume overload was about 3 months ago, is scheduled to see Dr. Polo at the end of the month for her symptoms of present secondary to worsening dyspnea and edema. - Physicial Exam PE: 08/29/17 13:35 tachy, + dyspnea on minimal exertion bibasilar crackles + abd wall edema 2/3+ edema b/l, R slightly more than L - Medical Decision Making 08/29/17 13:37 Patient seen and evaluated with the resident. I agree with the overall evaluation, assessment, and management with the following summary of visit: 57-year-old female with history of CHF and COPD with worsening volume overload/ dyspnea/edema despite compliance with her medications. No chest pain. Labs, troponin, BNP Chest x-ray, Dopplers IV diuresis, will likely need ongoing IV diuresis in the hospital
[2017-08-29 13:43] LABS: BASO % 0.4 % (0-2.0); EOS % 0.8 % (0-4.5); HEMATOCRIT 48.2 % (32.4-45.2); HEMOGLOBIN 15.3 GM/dL (10.7-15.3); MCH 29.7 pg (25.7-33.7); MCHC 31.7 g/dl (32.0-36.0); MEAN CELL VOLUME 93.9 fl (80-96); MEAN PLT VOLUME 7.6 fl (7.5-11.1); MONO % 11.1 % (3.8-10.2); NEUT % 76.7 % (42.8-82.8); PLATELET COUNT 301 K/MM3 (134-434); RBC 5.13 M/mm3 (3.60-5.2); RDW 16.8 % (11.6-15.6); WHITE BLOOD COUNT 9.1 K/mm3 (4.0-10.0)
[2017-08-29 14:04] LABS: ALBUMIN 2.5 g/dl (3.4-5.0); ANION GAP 8 (8-16); BLOOD UREA NITROGEN 16 mg/dL (7-18); CALCIUM 8.2 mg/dL (8.5-10.1); CHLORIDE 106 mmol/L (98-107); CO2 28 mmol/L (21-32); GLUCOSE,RANDOM 159 mg/dL (74-106); SODIUM 142 mmol/L (136-145)
[2017-08-29 14:10] LABS: ALK PHOS 251 U/L (45-117); BILIRUBIN,TOTAL 0.9 mg/dL (0.2-1.0); N-TERMINAL BNP 2576.89 pg/ml (5-125); SGPT/ALT 70 U/L (12-78)
[2017-08-29 14:12] LABS: POTASSIUM 4.2 mmol/L (3.5-5.1); SGOT/AST 43 U/L (15-37)
[2017-08-29] MEDS ORDERED: ASPIRIN 81 MG CHEWABLE TABLETS PO ONE (14:32)
[2017-08-29] MEDS ORDERED: ASPIRIN 81 MG CHEWABLE TABLETS ONE (14:45)
[2017-08-29 16:33] LABS: URINE APPEARANCE CLEAR; URINE BILIRUBIN NEGATIVE (NEGATIVE); URINE BLOOD NEGATIVE (NEGATIVE); URINE COLOR COLORLESS; URINE GLUCOSE (UA) 3+ (NEGATIVE); URINE KETONE NEGATIVE (NEGATIVE); URINE LEUK ESTERASE NEGATIVE (NEGATIVE); URINE NITRITE NEGATIVE (NEGATIVE); URINE PROTEIN NEGATIVE (NEGATIVE); URINE UROBILINOGEN NEGATIVE mg/dL (0.2-1.0)
[2017-08-29 17:43] LABS: OPIATES, URI NEGATIVE ng/ml (CUTOFF=300); PHENCYCLIDINE,URINE NEGATIVE ng/ml (CUTOFF=25); URINE AMPHETAMINES NEGATIVE ng/ml (CUTOFF=500); URINE BARBITURATES NEGATIVE ng/ml (CUTOFF=200); URINE BENZODIAZEPINES NEGATIVE ng/ml (CUTOFF=200)
[2017-08-29 17:44] LABS: METHADONE, UR NEGATIVE ng/ml (CUTOFF=300)
[2017-08-29 17:45] LABS: COCAINE, UR POSITIVE ng/ml (CUTOFF=300)
--- NOTE | 2017-08-29 20:59 | HP ---
Admitting History and Physical - Admission History of Present Illness: 57 year old female with a significant PMH of HTN, insulin-dependent diabetes, asthma/COPD (on home O2 @ 2.5 L), CHF, polycythemia, and chronic knee pain presenting with increased bilateral pitting edema and slightly worsened SOB (no change in O2 requirement) for the past three weeks. Patient states that she has been taking her lasix 4 0PO BID and her spirinolactone as instructed but her swelling has gotten worse over the past three weeks. Also admits to a cough with occasional warmth over the same period of time occasionally productive of green sputum. She has been constipated over the past 4 days as well that hasn't resolved with an enema. Denies chest pain, nausea, vomiting, dysuria, or syncope. Her PCP is Dr. Polo but she wasn't able to scheduel an appointment sooner than 2 weeks from now so she came into the ED. - Past Medical History Cardiovascular: Yes: HTN, Hyperlipdemia, Other. No: AFIB, CAD Pulmonary: Yes: Asthma, COPD. No: Pulmonary Embolus Gastrointestinal: Yes: GERD. No: Cancer Endocrine: Yes: Diabetes Mellitus - Smoking History Smoking history: Never smoked Have you smoked in the past 12 months: Yes Aproximately how many cigarettes per day: 6 If you are a former smoker, when did you quit?: 1 month ago - Alcohol/Substance Use Hx Alcohol Use: No Home Medications - Allergies Allergies/Adverse Reactions: Allergies Allergy/AdvReac Type Severity Reaction Status Date / Time No Known Allergies Allergy Verified 08/29/17 12:29 - Home Medications Home Medications: Ambulatory Orders Albuterol 2.5/Ipratropium 0.5 [Duoneb -] 1 neb NEB Q4H PRN #180 amp 05/03/17 Atorvastatin Ca [Lipitor] 10 mg PO HS #30 tab 05/03/17 Dapagliflozin Propanediol [Farxiga] 10 mg PO DAILY #30 tab 05/03/17 Insulin (Levemir) [Levemir Flexpen -] 50 units SQ BID 30 Days each 05/03/17 Linaclotide [Linzess] 145 mcg PO DAILY #30 cap 05/03/17 Metoprolol Tartrate [Lopressor -] 50 mg PO BID #30 tablet 05/03/17 Montelukast Na [Singulair -] 10 mg PO HS #30 tab 05/03/17 Nystatin Oral Suspension - [Nystatin Oral Susp 299512 Units/5 ML -] 500,000 units PO Q6HPO 10 Days ml 05/03/17 Spironolactone [Aldactone -] 25 mg PO DAILY #30 tablet 05/03/17 Amlodipine Besylate [Norvasc -] 5 mg PO DAILY #30 tablet 07/05/17 Cefuroxime Axetil [Ceftin -] 500 mg PO BID #14 tablet 07/05/17 Furosemide [Lasix -] 40 mg PO BID@0600,1400 #60 tablet 07/05/17 Prednisone [Deltasone -] 10 mg PO BID #60 tablet 07/05/17 Ramipril [Altace] 2.5 mg PO DAILY #30 capsule 07/05/17 Review of Systems - Review of Systems Cardiovascular: denies: Chest Pain Respiratory: reports: Cough, SOB, SOB on Exertion. denies: Wheezing Physical Examination Vital Signs: Vital Signs Temperature 98.4 F 08/29/17 12:29 Pulse Rate 117 H 08/29/17 20:47 Respiratory Rate 22 08/29/17 20:47 Blood Pressure 124/87 08/29/17 20:47 O2 Sat by Pulse Oximetry (%) 96 08/29/17 20:47 Cardiovascular: Yes: S1, S2 Respiratory: Yes: On Nasal O2, Rales, SOB Gastrointestinal: Yes: Normal Bowel Sounds, Soft Edema: Yes Edema: LLE: 3+, RLE: 3+ Labs: CBC, BMP 08/29/17 13:37 08/29/17 13:30 Problem List - Problems (1) Acute on chronic systolic (congestive) heart failure Assessment/Plan: IV LASIX FOLLOW LYTES ECHO CARDIO Code(s): I50.23 - ACUTE ON CHRONIC SYSTOLIC (CONGESTIVE) HEART FAILURE (2) COPD exacerbation Assessment/Plan: SOLUMEDROL O2 NEBS Code(s): J44.1 - CHRONIC OBSTRUCTIVE PULMONARY DISEASE W (ACUTE) EXACERBATION (3) Diabetes Assessment/Plan: BGM INSULIN ENDO Code(s): E11.9 - TYPE 2 DIABETES MELLITUS WITHOUT COMPLICATIONS Qualifiers: Diabetes mellitus type: type 1 Diabetes mellitus complication status: with hyperglycemia Qualified Code(s): E10.65 - Type 1 diabetes mellitus with hyperglycemia
[2017-08-29] MEDS ORDERED: methylPREDNISolone NA SUCC 40 MG/1 ML VIAL ONE (21:11)
[2017-08-29] MEDS: methylPREDNISolone NA SUCC 40 MG/1 ML VIAL IVPUSH SCH (21:17)
[2017-08-29] MEDS ORDERED: METOPROLOL TARTRATE 50 MG TABLET (FP) ONE (22:34)
[2017-08-29] MEDS ORDERED: HEPARIN NA (PORCINE) 5,000 UNITS/ML 1ML VIAL ONE (22:35)
[2017-08-29] MEDS ORDERED: MONTELUKAST NA 10 MG TABLET ONE (22:35)
[2017-08-29] MEDS ORDERED: INSULIN (NOVOLOG) ASPART 100 UNITS/ML 10ML VIAL ONE (22:49)
[2017-08-29] MEDS: METOPROLOL TARTRATE 50 MG TABLET (FP) PO SCH (23:00)
[2017-08-29] MEDS: HEPARIN NA (PORCINE) 5,000 UNITS/ML 1ML VIAL SQ SCH (23:00)
[2017-08-29] MEDS: INSULIN SLIDING SCALE (NOVOLOG) 1 VIAL SQ SCH (23:00)
[2017-08-29] MEDS: MONTELUKAST NA 10 MG TABLET PO SCH (23:01)
[2017-08-29] MEDS: ATORVASTATIN CA 10 MG TABLET (FP) PO SCH (23:03)
[2017-08-30] MEDS ORDERED: methylPREDNISolone NA SUCC 40 MG/1 ML VIAL ONE ×2 (02:55→08:17)
[2017-08-30] MEDS: methylPREDNISolone NA SUCC 40 MG/1 ML VIAL IVPUSH SCH ×3 (03:07→22:12)
[2017-08-30] MEDS ORDERED: FUROSEMIDE 40 MG/4 ML INJECTABLE VIAL ONE (06:16)
[2017-08-30] MEDS: FUROSEMIDE 40 MG/4 ML INJECTABLE VIAL IVPUSH SCH ×2 (06:31→15:02)
[2017-08-30] MEDS ORDERED: INSULIN (NOVOLOG) ASPART 100 UNITS/ML 10ML VIAL ONE ×2 (07:25→11:09)
[2017-08-30] MEDS: INSULIN SLIDING SCALE (NOVOLOG) 1 VIAL SQ SCH ×4 (07:28→22:12)
[2017-08-30 07:32] LABS: BASO % 0.3 % (0-2.0); EOS % 0.1 % (0-4.5); HEMATOCRIT 49.8 % (32.4-45.2); HEMOGLOBIN 15.5 GM/dL (10.7-15.3); LYMPH % 4.8 % (8-40); MCHC 31.2 g/dl (32.0-36.0); MEAN PLT VOLUME 8.1 fl (7.5-11.1); MONO % 1.7 % (3.8-10.2); NEUT % 93.1 % (42.8-82.8); PLATELET COUNT 311 K/MM3 (134-434); RBC 5.18 M/mm3 (3.60-5.2); RDW 17.6 % (11.6-15.6)
[2017-08-30 07:54] LABS: ALBUMIN 2.4 g/dl (3.4-5.0); ANION GAP 8 (8-16); BLOOD UREA NITROGEN 18 mg/dL (7-18); CALCIUM 7.5 mg/dL (8.5-10.1); CHLORIDE 106 mmol/L (98-107); CO2 26 mmol/L (21-32); POTASSIUM 4.8 mmol/L (3.5-5.1); SODIUM 140 mmol/L (136-145)
[2017-08-30 07:58] LABS: ALK PHOS 300 U/L (45-117); BILIRUBIN,TOTAL 0.6 mg/dL (0.2-1.0); CHOLESTEROL 104 mg/dL (50-200); CREATININE 1.2 mg/dL (0.55-1.02); HDL CHOLESTEROL 37 mg/dL (40-60); LDL CHOLESTEROL (ONLY SJRH) 64 mg/dL (5-100); SGOT/AST 49 U/L (15-37); SGPT/ALT 69 U/L (12-78); TOT PROT 5.7 g/dl (6.4-8.2); TRIGLYCERIDES 87 mg/dL (35-160)
[2017-08-30] MEDS ORDERED: amLODIPine BESYLATE 5 MG TABLET (FP) ONE (08:16)
[2017-08-30] MEDS ORDERED: SPIRONOLACTONE 25 MG TABLET (FP) ONE (08:17)
[2017-08-30] MEDS ORDERED: HEPARIN NA (PORCINE) 5,000 UNITS/ML 1ML VIAL ONE (08:17)
[2017-08-30] MEDS ORDERED: METOPROLOL TARTRATE 50 MG TABLET (FP) ONE (08:17)
[2017-08-30 08:32] LABS: GLUCOSE,RANDOM 446 mg/dL (74-106)
[2017-08-30] MEDS ORDERED: ALBUTEROL SO4 2.5/IPRATROPIUM 0.5 INH SOL 3 ML VIAL.NEB. NEB ONE (08:40)
[2017-08-30] MEDS: ALBUTEROL SO4 2.5/IPRATROPIUM 0.5 INH SOL 3 ML VIAL.NEB. NEB PRN ×2 (08:45→16:54)
[2017-08-30] MEDS: SPIRONOLACTONE 25 MG TABLET (FP) PO SCH (08:59)
[2017-08-30] MEDS: RAMIPRIL 2.5 MG CAPSULE (FP) PO SCH (08:59)
[2017-08-30] MEDS: HEPARIN NA (PORCINE) 5,000 UNITS/ML 1ML VIAL SQ SCH ×2 (08:59→22:12)
[2017-08-30] MEDS: METOPROLOL TARTRATE 50 MG TABLET (FP) PO SCH ×2 (08:59→22:12)
[2017-08-30] MEDS ORDERED: amLODIPine BESYLATE 5 MG TABLET (FP) PO SCH (10:00)
--- NOTE | 2017-08-30 10:07 | PN ---
Progress Note, Physician - Current Medication List Current Medications: Active Medications Albuterol/Ipratropium (Duoneb -) 1 amp NEB Q4H PRN PRN Reason: ASTHMA Last Admin: 08/30/17 08:45 Dose: 1 amp Amlodipine Besylate (Norvasc -) 5 mg PO DAILY [facility] Last Admin: 08/30/17 08:59 Dose: 5 mg Atorvastatin Calcium (Lipitor -) 10 mg PO HS [facility] Last Admin: 08/29/17 23:03 Dose: 10 mg Furosemide (Lasix Injection -) 40 mg IVPUSH BID@0600,1400 [facility] Last Admin: 08/30/17 06:31 Dose: 40 mg Heparin Sodium (Porcine) (Heparin -) 5,000 unit SQ BID [facility] Last Admin: 08/30/17 08:59 Dose: 5,000 unit Insulin Aspart (Novolog Vial Sliding Scale -) 1 vial SQ ACHS [facility] PRN Reason: Protocol Last Admin: 08/30/17 07:28 Dose: 14 units Methylprednisolone Sodium Succinate (Solu-Medrol -) 40 mg IVPUSH Q6H-IV [facility] Last Admin: 08/30/17 08:49 Dose: 40 mg Metoprolol Tartrate (Lopressor -) 50 mg PO BID [facility] Last Admin: 08/30/17 08:59 Dose: 50 mg Montelukast Sodium (Singulair -) 10 mg PO HS [facility] Last Admin: 08/29/17 23:01 Dose: 10 mg Non-Formulary Medication (Insulin (Levemir) [Levemir Flexpen -]) 50 units SQ BID [facility] Non-Formulary Medication (Linaclotide [Linzess]) 145 mcg PO DAILY [facility] Ramipril (Altace -) 2.5 mg PO DAILY [facility] Last Admin: 08/30/17 08:59 Dose: Not Given Spironolactone (Aldactone -) 25 mg PO DAILY [facility] Last Admin: 08/30/17 08:59 Dose: 25 mg - Objective Vital Signs: Vital Signs Temperature 97.8 F 08/30/17 06:31 Pulse Rate 97 H 08/30/17 06:31 Respiratory Rate 20 08/30/17 06:31 Blood Pressure 117/72 08/30/17 06:31 O2 Sat by Pulse Oximetry (%) 98 08/30/17 06:31 Cardiovascular: Yes: Regular Rate and Rhythm Respiratory: Yes: Rales Gastrointestinal: Yes: Normal Bowel Sounds, Soft Edema: Yes Edema: LLE: 2+, RLE: 2+ Labs: CBC, BMP 08/30/17 07:11 08/30/17 07:08 Problem List - Problems (1) Acute on chronic systolic (congestive) heart failure Assessment/Plan: IV LASIX FOLLOW LYTES ECHO CARDIO Code(s): I50.23 - ACUTE ON CHRONIC SYSTOLIC (CONGESTIVE) HEART FAILURE (2) COPD exacerbation Assessment/Plan: SOLUMEDROL TAPER O2 NEBS Code(s): J44.1 - CHRONIC OBSTRUCTIVE PULMONARY DISEASE W (ACUTE) EXACERBATION (3) Diabetes Assessment/Plan: BGM INSULIN ENDO Code(s): E11.9 - TYPE 2 DIABETES MELLITUS WITHOUT COMPLICATIONS Qualifiers: Diabetes mellitus type: type 1 Diabetes mellitus complication status: with hyperglycemia Qualified Code(s): E10.65 - Type 1 diabetes mellitus with hyperglycemia (4) Substance abuse Assessment/Plan: TOX SCREN POSITIVE PT DENIES Code(s): F19.10 - OTHER PSYCHOACTIVE SUBSTANCE ABUSE, UNCOMPLICATED
--- NOTE | 2017-08-30 10:49 | EKG ---
Test Reason : Blood Pressure : / mmHG Vent. Rate : 100 BPM Atrial Rate : 100 BPM P-R Int : 162 ms QRS Dur : 090 ms QT Int : 380 ms P-R-T Axes : 018 136 073 degrees QTc Int : 490 ms SINUS RHYTHM WITH OCCASIONAL PREMATURE VENTRICULAR COMPLEXES POSSIBLE LEFT ATRIAL ENLARGEMENT RIGHT AXIS DEVIATION PULMONARY DISEASE PATTERN SEPTAL INFARCT (CITED ON OR BEFORE 29-AUG-2017) ABNORMAL ECG WHEN COMPARED WITH ECG OF 29-AUG-2017 16:03, PREMATURE VENTRICULAR COMPLEXES ARE NOW PRESENT Confirmed by OKSANA MANSFIELD, MEGAN ([id number]) on 08/30/2017 10:48:46 AM Referred By: MARQUIS GARDNER DR Confirmed By:MEGAN GANDHI MD
--- NOTE | 2017-08-30 10:55 | EKG ---
Test Reason : Blood Pressure : / mmHG Vent. Rate : 110 BPM Atrial Rate : 110 BPM P-R Int : 154 ms QRS Dur : 090 ms QT Int : 382 ms P-R-T Axes : 008 117 059 degrees QTc Int : 516 ms SINUS TACHYCARDIA RIGHT AXIS DEVIATION LOW VOLTAGE QRS SEPTAL INFARCT , AGE UNDETERMINED ABNORMAL ECG WHEN COMPARED WITH ECG OF 01-JUL-2017 02:17, QRS VOLTAGE HAS DECREASED Confirmed by OKSANA MANSFIELD, MEGAN ([id number]) on 08/30/2017 10:55:08 AM Referred By: Confirmed By:MEGAN GANDHI MD
--- NOTE | 2017-08-30 14:36 | CON.CARD ---
Consult Consult Specialty:: Cardiology Reason for Consultation:: CHF - History of Present Illness History of Present Illness: This is a 57 year old female with a a PMH of HTN, insulin-dependent diabetes, asthma/COPD (on home O2 @ 2.5 L), CHF, polycythemia, and chronic knee pain. She presents here with with increased bilateral pitting edema and slightly worsened SOB (no change in O2 requirement) for the past three weeks. Patient states that she has been taking her lasix 40 PO BID and her spirinolactone as instructed but her swelling has gotten worse over the past three weeks. She also has been coughing, occasionally productive of green sputum. - Past Medical History Cardio/Vascular: Yes: HTN, Hyperlipdemia, Other. No: AFIB, CAD Pulmonary: Yes: Asthma, COPD. No: Pulmonary Embolus Gastrointestinal: Yes: GERD. No: Cancer Endocrine: Yes: Diabetes Mellitus - Alcohol/Substance Use Hx Alcohol Use: No - Smoking History Smoking history: Never smoked Have you smoked in the past 12 months: Yes Aproximately how many cigarettes per day: 6 If you are a former smoker, when did you quit?: 1 month ago - Social History Usual Living Arrangement: Alone Home Medications - Allergies Allergies/Adverse Reactions: Allergies Allergy/AdvReac Type Severity Reaction Status Date / Time No Known Allergies Allergy Verified 08/29/17 12:29 - Home Medications Home Medications: Ambulatory Orders Albuterol 2.5/Ipratropium 0.5 [Duoneb -] 1 neb NEB Q4H PRN #180 amp 05/03/17 Atorvastatin Ca [Lipitor] 10 mg PO HS #30 tab 05/03/17 Dapagliflozin Propanediol [Farxiga] 10 mg PO DAILY #30 tab 05/03/17 Insulin (Levemir) [Levemir Flexpen -] 50 units SQ BID 30 Days each 05/03/17 Linaclotide [Linzess] 145 mcg PO DAILY #30 cap 05/03/17 Metoprolol Tartrate [Lopressor -] 50 mg PO BID #30 tablet 05/03/17 Montelukast Na [Singulair -] 10 mg PO HS #30 tab 05/03/17 Nystatin Oral Suspension - [Nystatin Oral Susp 308782 Units/5 ML -] 500,000 units PO Q6HPO 10 Days ml 05/03/17 Spironolactone [Aldactone -] 25 mg PO DAILY #30 tablet 05/03/17 Amlodipine Besylate [Norvasc -] 5 mg PO DAILY #30 tablet 07/05/17 Cefuroxime Axetil [Ceftin -] 500 mg PO BID #14 tablet 07/05/17 Furosemide [Lasix -] 40 mg PO BID@0600,1400 #60 tablet 07/05/17 Prednisone [Deltasone -] 10 mg PO BID #60 tablet 07/05/17 Ramipril [Altace] 2.5 mg PO DAILY #30 capsule 07/05/17 Review of Systems Findings/Remarks: As per HPI Vital Signs: Vital Signs Temperature 97.5 F L 08/30/17 09:00 Pulse Rate 99 H 08/30/17 09:00 Respiratory Rate 20 08/30/17 09:00 Blood Pressure 105/68 08/30/17 09:00 O2 Sat by Pulse Oximetry (%) 100 08/30/17 10:00 Constitutional: Yes: No Distress HENT: Yes: WNL Neck: Yes: WNL Respiratory: Yes: Rales (Bibasilar rales) Gastrointestinal: Yes: Soft Cardiovascular: Yes: Regular Rate and Rhythm (NL S1S2, no MRHG) JVD: No Extremities: Yes: WNL Edema: Yes Edema: LLE: Trace, RLE: Trace Neurological: Yes: Alert, Oriented (Grossly non focal) - Other Data Labs, Other Data: CBC, BMP 08/30/17 07:11 08/30/17 07:08 Troponin, BNP 08/29/17 08/30/17 19:54 07:08 Troponin I 0.13 H 0.10 H Troponin, BNP 08/29/17 08/30/17 19:54 07:08 Troponin I 0.13 H 0.10 H Assessment/Plan Systolic CHF Acute on Chronic Would Diuress with LASIX 60 IVSS BID Daily I's/O's/Wt's/Lytes Continue Spironolactone [Aldactone -] 25 mg PO DAILY Continue Metoprolol Tartrate [Lopressor -] 50 mg PO BID Continue Ramipril [Altace] 2.5 mg PO DAILY Consider DC'ing Norvasc as that can lead to worsening peripheral edema and the BP is low HLD Continue Atorvastatin Ca [Lipitor] 10 mg PO Will follow with you
--- NOTE | 2017-08-30 14:37 | PN ---
Progress Note (short form) - Note Progress Note: PULMONARY CONSULTATION DICTATED 08/30/17 IMP DYSPNEA ACUTE ON CHRONIC SYSTOLIC CHF SEVERE LV DYSFUNCTION COPD O2 DEPENDENT PULMONARY HTN DM POLYCYTHEMIA PLAN IV LASIX O2 INHALED BRONCHODILATORS DAILY WTS STRICT I+OS F/U CHEST X-RAYS DR LOMELI Problem List - Problems (1) Acute on chronic systolic (congestive) heart failure Code(s): I50.23 - ACUTE ON CHRONIC SYSTOLIC (CONGESTIVE) HEART FAILURE (2) CHF (congestive heart failure) Code(s): I50.9 - HEART FAILURE, UNSPECIFIED Qualifiers: Congestive heart failure type: unspecified congestive heart failure type Congestive heart failure chronicity: acute on chronic Qualified Code(s): I50.9 - Heart failure, unspecified (3) COPD exacerbation Code(s): J44.1 - CHRONIC OBSTRUCTIVE PULMONARY DISEASE W (ACUTE) EXACERBATION (4) Cardiomyopathy Code(s): I42.9 - CARDIOMYOPATHY, UNSPECIFIED Qualifiers: Cardiomyopathy type: unspecified Qualified Code(s): I42.9 - Cardiomyopathy , unspecified (5) Diabetes Code(s): E11.9 - TYPE 2 DIABETES MELLITUS WITHOUT COMPLICATIONS Qualifiers: Diabetes mellitus type: type 1 Diabetes mellitus complication status: with hyperglycemia Qualified Code(s): E10.65 - Type 1 diabetes mellitus with hyperglycemia (6) HTN (hypertension) Code(s): I10 - ESSENTIAL (PRIMARY) HYPERTENSION Qualifiers: Hypertension type: essential hypertension Qualified Code(s): I10 - Essential (primary) hypertension (7) Polycythemia Code(s): D75.1 - SECONDARY POLYCYTHEMIA (8) Shortness of breath Code(s): R06.02 - SHORTNESS OF BREATH
--- NOTE | 2017-08-30 15:39 | CONS ---
DATE OF CONSULTATION: 08/30/2017 REFERRING PHYSICIAN: Ronnie Winkler MD The patient is a 57-year-old female with a past medical history of hypertension, insulin-dependent diabetes mellitus, asthma, COPD, on home O2, CHF , polycythemia, chronic knee pain, admitted to [facility] with increasing shortness of breath. Patient states the past 3 weeks though she started noted increasing shortness of breath, dyspnea on exertion, and bilateral lower extremity edema. Denied any chest pain, nausea, vomiting or diaphoresis. Apparently she has been compliant with the Lasix at home, taking 40 b.i.d. as well as Aldactone. It has only continued to increase in severity. She also has an occasional cough which is productive of mostly clear sputum. Denies any fever, chills, nausea, vomiting or diaphoresis. Denies any hemoptysis. She presented to the emergency room with above. In the emergency room, she was noted with shortness of breath. She was started on IV Lasix, with good response. She was also felt to have possible new-onset atrial fibrillation. Chest x-ray performed, which revealed bilateral pulmonary vascular congestion. She was admitted to telemetry unit for further monitoring. Patient was also noted to have elevated troponins. Basic metabolic panel on admission was 2576. Past medical history again includes polycythemia, COPD, on O2, CHF. REVIEW OF SYSTEMS: Positive orthopnea, positive dyspnea, positive cough. No chest pain, no palpitation, no fevers, no chills, no hemoptysis. Positive increase in lower extremity edema. Current medications include insulin, , Solu-Medrol, Altace, heparin, DuoNeb, Lopressor, Norvasc, Lipitor, NovoLog, Singulair, and Aldactone. SOCIAL HISTORY: Born in [place]. No occupational exposures. Positive history of smoking 1 pack per day for greater than 40 years, stopped about a month ago. PHYSICAL EXAMINATION: General: The patient is a well-developed, well-nourished female, awake, alert, currently in no acute distress. Vital Signs: She is currently afebrile. Heart rate is 99. Blood pressure is 117/72. Respiratory rate 20. HEENT: Normocephalic, atraumatic. Neck: Supple. Heart: Regular, normal S1, S2. Chest: Bibasilar crackles. Abdomen: Soft. Bowel sounds are present. Extremities: Bilateral extremity edema. Chest x-ray shows cardiomegaly with pulmonary vascular congestion bilaterally. Vascular study: No evidence of DVT. Echocardiogram: Normal LV size, left ventricular systolic function severely reduced, severe global hypokinesia of the left ventricle. Right ventricle is normal. Right ventricular systolic function mildly reduced. Right ventricular systolic pressure 30 to 40 mmHg. IMPRESSION: 1. Dyspnea, acute on chronic decompensated congestive heart failure. 2. Severe left ventricular dysfunction, 3. Chronic obstructive pulmonary disease. 4. Pulmonary hypertension. 5. Diabetes mellitus. 6. History of polycythemia. 7. Likely OSAS PLAN: Supplemental O2, Lasix, daily weights, inhaled bronchodilators, monitor hemoglobin and hematocrit, monitor CBC, monitor electrolytes. Obtain followup chest x-rays,sleep studies outpatient . Thank you. Will follow closely with you. TAMELA LOMELI M.D. [id number] MTDD
[2017-08-30] MEDS: ATORVASTATIN CA 10 MG TABLET (FP) PO SCH (22:12)
[2017-08-30] MEDS: MONTELUKAST NA 10 MG TABLET PO SCH (22:12)
[2017-08-30] MEDS: BENZOCAINE/MENTH/CETYLPYRD CL 1 EACH LOZENGE MM PRN (22:13)
[2017-08-31] MEDS: ALBUTEROL SO4 2.5/IPRATROPIUM 0.5 INH SOL 3 ML VIAL.NEB. NEB PRN ×5 (01:30→21:15)
[2017-08-31] MEDS ORDERED: MAG HYDROX/AL HYDROX/SIMETH 30 ML UNIT-DOSE CUP PO ONE (04:00)
--- NOTE | 2017-08-31 04:02 | HOSP ---
Subjective - Review of Symptoms Events since last encounter: Called to see pt by RN as BP 89/68 and pt c/o dizziness Subjective: pt c/o sensation of dizziness, not breathing properly and itching to bilat arms. She also reports pain in her epigastric region. Physical Examination Vital Signs: Vital Signs Temperature 97.9 F 08/31/17 02:00 Pulse Rate 103 H 08/31/17 02:00 Respiratory Rate 20 08/31/17 02:00 Blood Pressure 128/76 08/31/17 02:00 O2 Sat by Pulse Oximetry (%) 92 L 08/30/17 21:00 Current: T 98.4 P99 R 18 BP 89/68 ox sat 96% on oxygen Cardiovascular: Yes: Regular Rate and Rhythm, S1, S2 Respiratory: Yes: Wheezes (mild diffuse expiratory wheezing noted, especially left lower lobe). No: Cough, Rales Gastrointestinal: Yes: Normal Bowel Sounds, Soft, Tenderness (epigastric on deep palpation) Labs: CBC, BMP 08/30/17 07:11 08/30/17 07:08 Hospitalist Encounter Assessment: Dizziness - ? due to hypotension, pt with severe CHF, EF 14%, will defer IVF for now, repeat BP in one hour - will dc norvasc as per cardiology recommendation wheezing - nebulizer now itching - no rash noted, will defer treatment epigastric discomfort - maalox 30cc x 1
[2017-08-31] MEDS ORDERED: ALBUTEROL SO4 0.083% IH SOL 2.5 MG/3 ML VIAL.NEB. NEB ONE (04:48)
[2017-08-31] MEDS ORDERED: SODIUM CHLORIDE 0.45% 1,000 ML IV SCH (05:45)
[2017-08-31] MEDS: FUROSEMIDE 40 MG/4 ML INJECTABLE VIAL IVPUSH SCH ×2 (06:14→13:23)
[2017-08-31] MEDS: INSULIN SLIDING SCALE (NOVOLOG) 1 VIAL SQ SCH ×4 (06:18→22:51)
[2017-08-31] MEDS: BENZOCAINE/MENTH/CETYLPYRD CL 1 EACH LOZENGE MM PRN ×2 (08:18→15:36)
[2017-08-31] MEDS ORDERED: INSULIN DETEMIR SQ SCH (10:00)
[2017-08-31] MEDS ORDERED: [UNRECOGNIZED DRUG - OTHER] SQ SCH (10:00)
[2017-08-31] MEDS: SPIRONOLACTONE 25 MG TABLET (FP) PO SCH (10:05)
[2017-08-31] MEDS: RAMIPRIL 2.5 MG CAPSULE (FP) PO SCH (10:05)
[2017-08-31] MEDS: methylPREDNISolone NA SUCC 40 MG/1 ML VIAL IVPUSH SCH ×2 (10:05→22:50)
[2017-08-31] MEDS: METOPROLOL TARTRATE 50 MG TABLET (FP) PO SCH (10:05)
[2017-08-31] MEDS: HEPARIN NA (PORCINE) 5,000 UNITS/ML 1ML VIAL SQ SCH ×2 (10:05→22:50)
[2017-08-31] MEDS: PATIENT'S OWN MEDICATION (NON-FORMULARY) (Linaclotide [Linzess] 145 MCG) PO SCH (13:23)
--- NOTE | 2017-08-31 13:54 | PN ---
Progress Note (short form) - Note Progress Note: Breathing feels slightly better. Reports dizziness that worsens with movement. Nares feel dry. Intake & Output 08/28/17 08/29/17 08/30/17 08/31/17 23:59 23:59 23:59 23:59 Intake Total 740 250 Balance 740 250 Weight 220 lb 267 lb 6.4 oz Last Vital Signs Temp Pulse Resp BP Pulse Ox 97.6 F 105 H 18 104/82 97 08/31/17 05:39 08/31/17 12:00 08/31/17 12:00 08/31/17 12:00 08/31/17 09:00 Active Medications Albuterol/Ipratropium (Duoneb -) 1 amp NEB Q4H PRN PRN Reason: ASTHMA Last Admin: 08/31/17 11:46 Dose: 1 amp Atorvastatin Calcium (Lipitor -) 10 mg PO [facility] Last Admin: 08/30/17 22:12 Dose: 10 mg Benzocaine/Menthol (Cepacol Lozenge -) 1 each MM Q1H PRN PRN Reason: SORE THROAT Last Admin: 08/31/17 08:18 Dose: 1 each Furosemide (Lasix Injection -) 40 mg IVPUSH BID@0600,1400 [facility] Last Admin: 08/31/17 13:23 Dose: 40 mg Guaifenesin (Diabetic Tussin Dm -) 10 ml PO Q6H PRN PRN Reason: COUGH Heparin Sodium (Porcine) (Heparin -) 5,000 unit SQ BID [facility] Last Admin: 08/31/17 10:05 Dose: 5,000 unit Insulin Aspart (Novolog Vial Sliding Scale -) 1 vial SQ [facility] PRN Reason: Protocol Last Admin: 08/31/17 11:19 Dose: 5 units Insulin Detemir (Levemir Vial) 50 units SQ BID@0700,2200 [facility] Melatonin (Melatonin) 3 mg PO [facility] Methylprednisolone Sodium Succinate (Solu-Medrol -) 40 mg IVPUSH BID [facility] Last Admin: 08/31/17 10:05 Dose: 40 mg Metoprolol Tartrate (Lopressor -) 50 mg PO BID [facility] Last Admin: 08/31/17 10:05 Dose: 50 mg Montelukast Sodium (Singulair -) 10 mg PO [facility] Last Admin: 08/30/17 22:12 Dose: 10 mg Non-Formulary Medication (Linaclotide [Linzess]) 145 mcg PO DAILY [facility] Last Admin: 08/31/17 13:23 Dose: 145 mcg Nystatin (Nystatin Oral Suspension -) 500,000 units PO Q6HPO [facility] Stop: 09/10/17 17:59 Ramipril (Altace -) 2.5 mg PO DAILY [facility] Last Admin: 08/31/17 10:05 Dose: 2.5 mg Spironolactone (Aldactone -) 25 mg PO DAILY [facility] Last Admin: 08/31/17 10:05 Dose: 25 mg Constitutional: Yes: NAD HENT: Yes: WNL Neck: Yes: WNL Respiratory: Yes: Bibasilar rales / rhonchi Gastrointestinal: Yes: Soft Cardiovascular: Yes: Regular Rate and Rhythm (NL S1S2, no MRHG) JVD: No Extremities: Yes: WNL Edema: Yes Edema: LLE: Trace, RLE: Trace Neurological: Yes: Alert, Non-focal Laboratory Results - last 24 hr 08/30/17 08/30/17 08/30/17 07:09 11:05 16:56 POC Glucometer > 400 > 400 351 08/30/17 08/31/17 08/31/17 22:01 03:36 06:13 POC Glucometer 311 266 217 08/31/17 08/31/17 08:47 11:15 POC Glucometer 209 265 Problem List - Problems (1) Acute on chronic systolic (congestive) heart failure Code(s): I50.23 - ACUTE ON CHRONIC SYSTOLIC (CONGESTIVE) HEART FAILURE (2) CHF (congestive heart failure) Code(s): I50.9 - HEART FAILURE, UNSPECIFIED Qualifiers: Congestive heart failure type: unspecified congestive heart failure type Congestive heart failure chronicity: acute on chronic Qualified Code(s): I50.9 - Heart failure, unspecified (3) COPD exacerbation Code(s): J44.1 - CHRONIC OBSTRUCTIVE PULMONARY DISEASE W (ACUTE) EXACERBATION (4) Cardiomyopathy Code(s): I42.9 - CARDIOMYOPATHY, UNSPECIFIED Qualifiers: Cardiomyopathy type: unspecified Qualified Code(s): I42.9 - Cardiomyopathy , unspecified (5) Diabetes Code(s): E11.9 - TYPE 2 DIABETES MELLITUS WITHOUT COMPLICATIONS Qualifiers: Diabetes mellitus type: type 1 Diabetes mellitus complication status: with hyperglycemia Qualified Code(s): E10.65 - Type 1 diabetes mellitus with hyperglycemia (6) HTN (hypertension) Code(s): I10 - ESSENTIAL (PRIMARY) HYPERTENSION Qualifiers: Hypertension type: essential hypertension Qualified Code(s): I10 - Essential (primary) hypertension (7) Polycythemia Code(s): D75.1 - SECONDARY POLYCYTHEMIA (8) Shortness of breath Code(s): R06.02 - SHORTNESS OF BREATH IMP DYSPNEA ACUTE ON CHRONIC SYSTOLIC CHF SEVERE LV DYSFUNCTION COPD O2 DEPENDENT PULMONARY HTN DM POLYCYTHEMIA HIGH CLINICAL SUSPICION FOR SLEEP APNEA PLAN IV LASIX O2 INHALED BRONCHODILATORS DAILY WTS STRICT I+OS HUMIDIFY O2 SHOULD HAVE FORMAL SLEEP APNEA WORKUP AFTER D/C DR HICKMAN
[2017-08-31] MEDS: guaiFENesin/D-M SUGAR-FREE/ACLHOL-FREE 118 ML BOTTLE PO PRN (15:34)
--- NOTE | 2017-08-31 15:45 | PN ---
Progress Note, Physician Chief Complaint: Symptomatically improved History of Present Illness: This is a 57 year old female with a a PMH of HTN, insulin-dependent diabetes, asthma/COPD (on home O2 @ 2.5 L), CHF, polycythemia, and chronic knee pain. She presents here with with increased bilateral pitting edema and slightly worsened SOB (no change in O2 requirement) for the past three weeks. Patient states that she has been taking her lasix 40 PO BID and her spirinolactone as instructed but her swelling has gotten worse over the past three weeks. She also has been coughing, occasionally productive of green sputum. Echocardiogram 08/30/17: EF 13.5% Severely reduced LV function Moderately reduced RV function Moderate MR Moderate TR This is significantly reduced compared with at echocardiogram from 04/27/17 where the EF was 40%. - Current Medication List Current Medications: Active Medications Albuterol/Ipratropium (Duoneb -) 1 amp NEB Q4H PRN PRN Reason: ASTHMA Last Admin: 08/31/17 11:46 Dose: 1 amp Atorvastatin Calcium (Lipitor -) 10 mg PO HS [facility] Last Admin: 08/30/17 22:12 Dose: 10 mg Benzocaine/Menthol (Cepacol Lozenge -) 1 each MM Q1H PRN PRN Reason: SORE THROAT Last Admin: 08/31/17 08:18 Dose: 1 each Furosemide (Lasix Injection -) 40 mg IVPUSH BID@0600,1400 [facility] Last Admin: 08/31/17 13:23 Dose: 40 mg Guaifenesin (Diabetic Tussin Dm -) 10 ml PO Q6H PRN PRN Reason: COUGH Heparin Sodium (Porcine) (Heparin -) 5,000 unit SQ BID [facility] Last Admin: 08/31/17 10:05 Dose: 5,000 unit Insulin Aspart (Novolog Vial Sliding Scale -) 1 vial SQ ACHS [facility] PRN Reason: Protocol Last Admin: 08/31/17 11:19 Dose: 5 units Insulin Detemir (Levemir Vial) 50 units SQ BID@0700,2200 [facility] Melatonin (Melatonin) 3 mg PO HS [facility] Methylprednisolone Sodium Succinate (Solu-Medrol -) 40 mg IVPUSH BID [facility] Last Admin: 08/31/17 10:05 Dose: 40 mg Metoprolol Tartrate (Lopressor -) 50 mg PO BID [facility] Last Admin: 08/31/17 10:05 Dose: 50 mg Montelukast Sodium (Singulair -) 10 mg PO HS [facility] Last Admin: 08/30/17 22:12 Dose: 10 mg Non-Formulary Medication (Linaclotide [Linzess]) 145 mcg PO DAILY [facility] Last Admin: 08/31/17 13:23 Dose: 145 mcg Nystatin (Nystatin Oral Suspension -) 500,000 units PO Q6HPO [facility] Stop: 09/10/17 17:59 Ramipril (Altace -) 2.5 mg PO DAILY [facility] Last Admin: 08/31/17 10:05 Dose: 2.5 mg Spironolactone (Aldactone -) 25 mg PO DAILY [facility] Last Admin: 08/31/17 10:05 Dose: 25 mg - Objective Vital Signs: Vital Signs Temperature 97.6 F 08/31/17 05:39 Pulse Rate 105 H 08/31/17 12:00 Respiratory Rate 18 08/31/17 12:00 Blood Pressure 104/82 08/31/17 12:00 O2 Sat by Pulse Oximetry (%) 97 08/31/17 09:00 Constitutional: Yes: No Distress Eyes: Yes: WNL Neck: Yes: WNL Cardiovascular: Yes: Regular Rate and Rhythm (NL S1S2, no MRHG) Respiratory: Yes: CTA Bilaterally Gastrointestinal: Yes: Soft Extremities: Yes: WNL Edema: LLE: Trace, RLE: Trace Neurological: Yes: Alert, Oriented (Grossly non focal) Labs: CBC, BMP 08/30/17 07:11 08/30/17 07:08 Assessment/Plan Systolic CHF Acute on Chronic Would Diuress with LASIX 60 IVSS BID Daily I's/O's/Wt's/Lytes Continue Spironolactone [Aldactone -] 25 mg PO DAILY Continue Ramipril [Altace] 2.5 mg PO DAILY Agree with NELL'edmond Orellana as that can lead to worsening peripheral edema and the BP is low Given she is cocaine positive, would change metoprolol to carvedilol which is both an alpha elias and a beta elias HLD Continue Atorvastatin Ca [Lipitor] 10 mg PO Given the very low EF, the the patient would benefit from being followed at [facility] with advance care such as an evaluation for an ICD. Upon discharge please consider arranging for a Heart Failure Clinic Visit . Will follow with you
[2017-08-31] MEDS ORDERED: PT OWN MED DRAWER 7, Y5N ONE ×2 (16:00→22:42)
--- NOTE | 2017-08-31 16:14 | PN ---
Progress Note, Physician Chief Complaint: in bed sleeping - Current Medication List Current Medications: Active Medications Albuterol/Ipratropium (Duoneb -) 1 amp NEB Q4H PRN PRN Reason: ASTHMA Last Admin: 08/31/17 11:46 Dose: 1 amp Atorvastatin Calcium (Lipitor -) 10 mg PO [facility] Last Admin: 08/30/17 22:12 Dose: 10 mg Benzocaine/Menthol (Cepacol Lozenge -) 1 each MM Q1H PRN PRN Reason: SORE THROAT Last Admin: 08/31/17 15:36 Dose: 1 each Furosemide (Lasix Injection -) 40 mg IVPUSH BID@0600,1400 [facility] Last Admin: 08/31/17 13:23 Dose: 40 mg Guaifenesin (Diabetic Tussin Dm -) 10 ml PO Q6H PRN PRN Reason: COUGH Last Admin: 08/31/17 15:34 Dose: 10 ml Heparin Sodium (Porcine) (Heparin -) 5,000 unit SQ BID [facility] Last Admin: 08/31/17 10:05 Dose: 5,000 unit Insulin Aspart (Novolog Vial Sliding Scale -) [address] [facility] PRN Reason: Protocol Last Admin: 08/31/17 11:19 Dose: 5 units Insulin Detemir (Levemir Vial) 50 units SQ BID@0700,2200 [facility] Melatonin (Melatonin) 3 mg PO [facility] Methylprednisolone Sodium Succinate (Solu-Medrol -) 40 mg IVPUSH BID [facility] Last Admin: 08/31/17 10:05 Dose: 40 mg Metoprolol Tartrate (Lopressor -) 50 mg PO BID [facility] Last Admin: 08/31/17 10:05 Dose: 50 mg Montelukast Sodium (Singulair -) 10 mg PO [facility] Last Admin: 08/30/17 22:12 Dose: 10 mg Non-Formulary Medication (Linaclotide [Linzess]) 145 mcg PO DAILY [facility] Last Admin: 08/31/17 13:23 Dose: 145 mcg Nystatin (Nystatin Oral Suspension -) 500,000 units PO Q6HPO [facility] Stop: 09/10/17 17:59 Ramipril (Altace -) 2.5 mg PO DAILY [facility] Last Admin: 08/31/17 10:05 Dose: 2.5 mg Spironolactone (Aldactone -) 25 mg PO DAILY [facility] Last Admin: 08/31/17 10:05 Dose: 25 mg - Objective Vital Signs: Vital Signs Temperature 97.6 F 08/31/17 05:39 Pulse Rate 105 H 08/31/17 12:00 Respiratory Rate 18 08/31/17 12:00 Blood Pressure 104/82 08/31/17 12:00 O2 Sat by Pulse Oximetry (%) 97 08/31/17 09:00 Constitutional: Yes: Calm Cardiovascular: Yes: Regular Rate and Rhythm, S1, S2 Respiratory: Yes: CTA Bilaterally Gastrointestinal: Yes: Normal Bowel Sounds, Soft Neurological: Yes: Alert Labs: CBC, BMP 08/30/17 07:11 08/30/17 07:08 Problem List - Problems (1) Acute on chronic systolic (congestive) heart failure Assessment/Plan: iv lasix continue aldactone ramipril and stop Metoprolol and start coreg i/o cxr monitor lytes low EF noted : will need to FU at Heart failure clinic at [facility] on discharge Code(s): I50.23 - ACUTE ON CHRONIC SYSTOLIC (CONGESTIVE) HEART FAILURE (2) COPD exacerbation Assessment/Plan: iv steroids oxygen will need sleep study on discharge Code(s): J44.1 - CHRONIC OBSTRUCTIVE PULMONARY DISEASE W (ACUTE) EXACERBATION (3) Diabetes Assessment/Plan: insulin bgm hga1c noted levemir bid enodcrine eval Code(s): E11.9 - TYPE 2 DIABETES MELLITUS WITHOUT COMPLICATIONS Qualifiers: Diabetes mellitus type: type 1 Diabetes mellitus complication status: with hyperglycemia Qualified Code(s): E10.65 - Type 1 diabetes mellitus with hyperglycemia
[2017-08-31] MEDS: NYSTATIN 500,000 UNITS/5 ML SUSPENSION PO SCH (17:41)
[2017-08-31] MEDS ORDERED: INSULIN (NOVOLOG) ASPART 100 UNITS/ML 10ML VIAL ONE (22:40)
[2017-08-31] MEDS: INSULIN DETEMIR 100 UNITS/ML MDV SQ SCH (22:50)
[2017-08-31] MEDS: ATORVASTATIN CA 10 MG TABLET (FP) PO SCH (22:51)
[2017-08-31] MEDS: CARVEDILOL 3.125 MG TABLET (FP) PO SCH (22:51)
[2017-08-31] MEDS: MONTELUKAST NA 10 MG TABLET PO SCH (22:51)
[2017-08-31] MEDS: MELATONIN 1 MG TABLET PO SCH (22:52)
[2017-09-01] MEDS: NYSTATIN 500,000 UNITS/5 ML SUSPENSION PO SCH ×4 (00:29→17:42)
--- NOTE | 2017-09-01 01:11 | CONSULT ---
Consult Consult Specialty:: endocrine Referred by:: dr.annabi villanueva Reason for Consultation:: diabetes mellitus hyperglycemia - History of Present Illness Chief Complaint: difficulty breathing and high sugars History of Present Illness: 57 year old female with a significant PMH of HTN, insulin-dependent diabetes, asthma/COPD (on home O2 @ 2.5 L), CHF, polycythemia, and chronic knee pain presenting with increased bilateral pitting edema and slightly worsened SOB and cough wheezing.her blood sugars have been elevated although she had no appetite ,no hypoglycemia - History Source History Provided By: Patient - Past Medical History Cardio/Vascular: Yes: HTN, Hyperlipdemia, Other. No: AFIB, CAD Pulmonary: Yes: Asthma, COPD. No: Pulmonary Embolus Gastrointestinal: Yes: GERD. No: Cancer Endocrine: Yes: Diabetes Mellitus - Alcohol/Substance Use Hx Alcohol Use: No - Smoking History Smoking history: Never smoked Have you smoked in the past 12 months: Yes Aproximately how many cigarettes per day: 6 If you are a former smoker, when did you quit?: 1 month ago - Social History Usual Living Arrangement: Alone Home Medications - Allergies Allergies/Adverse Reactions: Allergies Allergy/AdvReac Type Severity Reaction Status Date / Time No Known Allergies Allergy Verified 08/29/17 12:29 - Home Medications Home Medications: Ambulatory Orders Albuterol 2.5/Ipratropium 0.5 [Duoneb -] 1 neb NEB Q4H PRN #180 amp 05/03/17 Atorvastatin Ca [Lipitor] 10 mg PO HS #30 tab 05/03/17 Dapagliflozin Propanediol [Farxiga] 10 mg PO DAILY #30 tab 05/03/17 Insulin (Levemir) [Levemir Flexpen -] 50 units SQ BID 30 Days each 05/03/17 Linaclotide [Linzess] 145 mcg PO DAILY #30 cap 05/03/17 Metoprolol Tartrate [Lopressor -] 50 mg PO BID #30 tablet 05/03/17 Montelukast Na [Singulair -] 10 mg PO HS #30 tab 05/03/17 Nystatin Oral Suspension - [Nystatin Oral Susp 021562 Units/5 ML -] 500,000 units PO Q6HPO 10 Days ml 05/03/17 Spironolactone [Aldactone -] 25 mg PO DAILY #30 tablet 05/03/17 Amlodipine Besylate [Norvasc -] 5 mg PO DAILY #30 tablet 07/05/17 Cefuroxime Axetil [Ceftin -] 500 mg PO BID #14 tablet 07/05/17 Furosemide [Lasix -] 40 mg PO BID@0600,1400 #60 tablet 07/05/17 Prednisone [Deltasone -] 10 mg PO BID #60 tablet 07/05/17 Ramipril [Altace] 2.5 mg PO DAILY #30 capsule 07/05/17 Review of Systems - Review of Systems Constitutional: reports: Lethargy, Loss of Appetite, Weakness Eyes: reports: Blurred Vision HENT: reports: Throat Pain Neck: reports: No Symptoms Cardiovascular: reports: Palpitations, Shortness of Breath Respiratory: reports: Exercise Intolerance, Orthopnea, SOB on Exertion, Wheezing Gastrointestinal: reports: Bloating, Nausea Genitourinary: reports: No Symptoms Breasts: reports: No Symptoms Reported Musculoskeletal: reports: Extremity Pain, Muscle Pain, Muscle Cramps, Muscle Weakness Integumentary: reports: No Symptoms Neurological: reports: Dizziness, Numbness, Tremors, Unsteady Gait, Weakness Endocrine: reports: Unexplained Weight Gain Physical Exam Vital Signs: Vital Signs Temperature 97.3 F L 08/31/17 22:00 Pulse Rate 106 H 08/31/17 22:00 Respiratory Rate 18 08/31/17 22:00 Blood Pressure 101/74 08/31/17 22:00 O2 Sat by Pulse Oximetry (%) 97 08/31/17 09:00 Constitutional: Yes: Anxious Eyes: Yes: EOM Intact HENT: Yes: Normocephalic Neck: Yes: Trachea Midline Cardiovascular: Yes: Tachycardia, S3 Respiratory: Yes: On Nasal O2, Rales, Rhonchi, SOB, Tachypnea Gastrointestinal: Yes: Abdomen, Obese ...Rectal Exam: Yes: Deferred Renal/: Yes: WNL Musculoskeletal: Yes: Back Pain Extremities: Yes: Delayed Capillary Refill Edema: LLE: 1+, RLE: 1+ Neurological: Yes: Alert, Oriented Labs: CBC, BMP 08/30/17 07:11 08/30/17 07:08 Problem List - Problems (1) Controlled type 1 diabetes mellitus with peripheral vascular disease Code(s): E10.51 - TYPE 1 DIABETES W DIABETIC PERIPHERAL ANGIOPATH W/O GANGRENE (2) Acute on chronic systolic (congestive) heart failure Code(s): I50.23 - ACUTE ON CHRONIC SYSTOLIC (CONGESTIVE) HEART FAILURE (3) Asthmatic bronchitis Code(s): J45.909 - UNSPECIFIED ASTHMA, UNCOMPLICATED (4) Bronchiolitis Code(s): J21.9 - ACUTE BRONCHIOLITIS, UNSPECIFIED (5) CHF (congestive heart failure) Code(s): I50.9 - HEART FAILURE, UNSPECIFIED Qualifiers: Congestive heart failure type: unspecified congestive heart failure type Congestive heart failure chronicity: acute on chronic Qualified Code(s): I50.9 - Heart failure, unspecified Assessment/Plan Current Active Problems Acute on chronic systolic (congestive) heart failure (Acute) Controlled type 1 diabetes mellitus with peripheral vascular disease (Acute) Substance abuse (Acute) iddm hyperglycemia morbid obesity Laboratory Results - last 24 hr 08/31/17 08/31/17 08/31/17 03:36 06:13 08:47 POC Glucometer 266 217 209 08/31/17 08/31/17 08/31/17 11:15 17:12 20:59 POC Glucometer 265 223 231 Laboratory Tests 08/30/17 08/30/17 08/30/17 07:08 07:08 07:11 WBC 7.0 RBC 5.18 Hgb 15.5 H Hct 49.8 H MCV 96.0 MCH 30.0 RDW 17.6 H Sodium 140 Potassium 4.8 Chloride 106 Carbon Dioxide 26 Anion Gap 8 BUN 18 Creatinine 1.2 H Creat Clearance w eGFR 46.47 POC Glucometer Hemoglobin A1c % 10.4 H D Cholesterol 104 D Total LDL Cholesterol 64 08/31/17 08/31/17 08/31/17 03:36 06:13 08:47 WBC RBC Hgb Hct MCV MCH RDW Sodium Potassium Chloride Carbon Dioxide Anion Gap BUN Creatinine Creat Clearance w eGFR POC Glucometer 266 217 209 Hemoglobin A1c % Cholesterol Total LDL Cholesterol 08/31/17 08/31/17 08/31/17 11:15 17:12 20:59 WBC RBC Hgb Hct MCV MCH RDW Sodium Potassium Chloride Carbon Dioxide Anion Gap BUN Creatinine Creat Clearance w eGFR POC Glucometer 265 223 231 Hemoglobin A1c % Cholesterol Total LDL Cholesterol plan: abgm qid novolog scale adjustment levemir 50 units bid will need titration of insulin as steroids are tapered
[2017-09-01] MEDS: ALBUTEROL SO4 2.5/IPRATROPIUM 0.5 INH SOL 3 ML VIAL.NEB. NEB PRN ×4 (03:05→21:37)
[2017-09-01 06:41] LABS: BASO % 0.1 % (0-2.0); EOS % 0.1 % (0-4.5); HEMATOCRIT 51.4 % (32.4-45.2); HEMOGLOBIN 16.1 GM/dL (10.7-15.3); LYMPH % 6.7 % (8-40); MCH 29.8 pg (25.7-33.7); MCHC 31.4 g/dl (32.0-36.0); MEAN CELL VOLUME 94.9 fl (80-96); MEAN PLT VOLUME 8.4 fl (7.5-11.1); MONO % 7.5 % (3.8-10.2); NEUT % 85.6 % (42.8-82.8); PLATELET COUNT 396 K/MM3 (134-434); RBC 5.42 M/mm3 (3.60-5.2); RDW 17.3 % (11.6-15.6); WHITE BLOOD COUNT 15.5 K/mm3 (4.0-10.0)
[2017-09-01] MEDS: FUROSEMIDE 40 MG/4 ML INJECTABLE VIAL IVPUSH SCH ×2 (06:46→14:21)
[2017-09-01] MEDS: INSULIN DETEMIR 100 UNITS/ML MDV SQ SCH ×2 (06:46→21:21)
[2017-09-01] MEDS: INSULIN SLIDING SCALE (NOVOLOG) 1 VIAL SQ SCH ×4 (06:47→21:20)
[2017-09-01 07:22] LABS: ALBUMIN 2.5 g/dl (3.4-5.0); ANION GAP 10 (8-16); BILIRUBIN,TOTAL 1.9 mg/dL (0.2-1.0); BLOOD UREA NITROGEN 59 mg/dL (7-18); CALCIUM 8.1 mg/dL (8.5-10.1); CHLORIDE 103 mmol/L (98-107); CO2 24 mmol/L (21-32); GLUCOSE,RANDOM 167 mg/dL (74-106); POTASSIUM 4.5 mmol/L (3.5-5.1); SGOT/AST 341 U/L (15-37); SGPT/ALT 314 U/L (12-78); SODIUM 137 mmol/L (136-145); TOT PROT 5.5 g/dl (6.4-8.2)
[2017-09-01 07:23] LABS: ALK PHOS 273 U/L (45-117)
[2017-09-01] MEDS: HEPARIN NA (PORCINE) 5,000 UNITS/ML 1ML VIAL SQ SCH ×2 (09:03→21:20)
[2017-09-01] MEDS: methylPREDNISolone NA SUCC 40 MG/1 ML VIAL IVPUSH SCH ×2 (09:03→21:21)
[2017-09-01] MEDS: RAMIPRIL 2.5 MG CAPSULE (FP) PO SCH (09:04)
[2017-09-01] MEDS: SPIRONOLACTONE 25 MG TABLET (FP) PO SCH (09:04)
[2017-09-01] MEDS: CARVEDILOL 3.125 MG TABLET (FP) PO SCH ×2 (09:04→21:21)
[2017-09-01] MEDS: PATIENT'S OWN MEDICATION (NON-FORMULARY) (Linaclotide [Linzess] 145 MCG) PO SCH (09:04)
[2017-09-01] MEDS: guaiFENesin/D-M SUGAR-FREE/ACLHOL-FREE 118 ML BOTTLE PO PRN (09:15)
--- NOTE | 2017-09-01 15:35 | PN ---
Progress Note, Physician Chief Complaint: Patient lying flat SOB improved as per patient Not compliant with urine monitoring History of Present Illness: This is a 57 year old female with a a PMH of HTN, insulin-dependent diabetes, asthma/COPD (on home O2 @ 2.5 L), CHF, polycythemia, and chronic knee pain. She presents here with with increased bilateral pitting edema and slightly worsened SOB (no change in O2 requirement) for the past three weeks. Patient states that she has been taking her lasix 40 PO BID and her spirinolactone as instructed but her swelling has gotten worse over the past three weeks. She also has been coughing, occasionally productive of green sputum. Echocardiogram 08/30/17: EF 13.5% Severely reduced LV function Moderately reduced RV function Moderate MR Moderate TR This is significantly reduced compared with at echocardiogram from 04/27/17 where the EF was 40%. - Current Medication List Current Medications: Active Medications Albuterol/Ipratropium (Duoneb -) 1 amp NEB Q4H PRN PRN Reason: ASTHMA Last Admin: 09/01/17 07:45 Dose: 1 amp Atorvastatin Calcium (Lipitor -) 10 mg PO HS [facility] Last Admin: 08/31/17 22:51 Dose: 10 mg Benzocaine/Menthol (Cepacol Lozenge -) 1 each MM Q1H PRN PRN Reason: SORE THROAT Last Admin: 08/31/17 15:36 Dose: 1 each Carvedilol (Coreg -) 3.125 mg PO BID [facility] Last Admin: 09/01/17 09:04 Dose: 3.125 mg Furosemide (Lasix Injection -) 40 mg IVPUSH BID@0600,1400 [facility] Last Admin: 09/01/17 14:21 Dose: 40 mg Guaifenesin (Diabetic Tussin Dm -) 10 ml PO Q6H PRN PRN Reason: COUGH Last Admin: 09/01/17 09:15 Dose: 10 ml Heparin Sodium (Porcine) (Heparin -) 5,000 unit SQ BID [facility] Last Admin: 09/01/17 09:03 Dose: 5,000 unit Insulin Aspart (Novolog Vial Sliding Scale -) 1 vial SQ ACHS [facility] PRN Reason: Protocol Last Admin: 09/01/17 11:48 Dose: Not Given Insulin Detemir (Levemir Vial) 50 units SQ BID@0700,2200 [facility] Last Admin: 09/01/17 06:46 Dose: 50 units Melatonin (Melatonin) 3 mg PO [facility] Last Admin: 08/31/17 22:52 Dose: 3 mg Methylprednisolone Sodium Succinate (Solu-Medrol -) 40 mg IVPUSH BID [facility] Last Admin: 09/01/17 09:03 Dose: 40 mg Montelukast Sodium (Singulair -) 10 mg PO HS [facility] Last Admin: 08/31/17 22:51 Dose: 10 mg Non-Formulary Medication (Linaclotide [Linzess]) 145 mcg PO DAILY [facility] Last Admin: 09/01/17 09:04 Dose: 145 mcg Nystatin (Nystatin Oral Suspension -) 500,000 units PO Q6HPO [facility] Stop: 09/10/17 17:59 Last Admin: 09/01/17 11:48 Dose: 500,000 units Ramipril (Altace -) 2.5 mg PO DAILY [facility] Last Admin: 09/01/17 09:04 Dose: 2.5 mg Spironolactone (Aldactone -) 25 mg PO DAILY [facility] Last Admin: 09/01/17 09:04 Dose: 25 mg - Objective Vital Signs: Vital Signs Temperature 97.5 F L 09/01/17 14:45 Pulse Rate 104 H 09/01/17 14:45 Respiratory Rate 20 09/01/17 14:31 Blood Pressure 120/74 09/01/17 14:45 O2 Sat by Pulse Oximetry (%) 116 H 09/01/17 09:00 Constitutional: Yes: No Distress Cardiovascular: Yes: Regular Rate and Rhythm, JVD. No: Murmur Respiratory: Yes: Wheezes Gastrointestinal: Yes: Soft Edema: Yes Edema: LLE: 1+, RLE: 1+ Labs: CBC, BMP 09/01/17 05:35 09/01/17 05:35 Problem List - Problems (1) Acute on chronic systolic (congestive) heart failure Code(s): I50.23 - ACUTE ON CHRONIC SYSTOLIC (CONGESTIVE) HEART FAILURE Assessment/Plan This is a 57 year old female with a a PMH of HTN, insulin-dependent diabetes, asthma/COPD (on home O2 @ 2.5 L), CHF, polycythemia, and chronic knee pain. She presents here with with increased bilateral pitting edema and slightly worsened SOB (no change in O2 requirement) for the past three weeks. Patient states that she has been taking her lasix 40 PO BID and her spirinolactone as instructed but her swelling has gotten worse over the past three weeks. She also has been coughing, occasionally productive of green sputum. Echocardiogram 08/30/17: EF 13.5% Severely reduced LV function Moderately reduced RV function Moderate MR Moderate TR This is significantly reduced compared with at echocardiogram from 04/27/17 where the EF was 40%. 1) Acute on chronic systolic CHF nonischemic +cocaine use -CHF regimen of carvedilol low dose, low dose ramipril, and spironolactone Patient with LE edema but comfortable lying flat and feels better. BP borderline. Not compliant with urine monitoring but nurse says patient is peeing a lot and always has a wet adult diaper. CONNER on labs. Will decrease furosemide to 40mg IV daily and monitor bun/cr and to best ability I/O's. Also will monitor lfts as elevated. Monitor K as patient with CONNER and on bárbara-i along with spironolactone Will monitor closely how patient responds and if no improvement whether patient needs any additional chf therapy such as ionotropes
--- NOTE | 2017-09-01 17:05 | PN ---
Progress Note, Physician History of Present Illness: a little better - Current Medication List Current Medications: Active Medications Albuterol/Ipratropium (Duoneb -) 1 amp NEB Q4H PRN PRN Reason: ASTHMA Last Admin: 09/01/17 07:45 Dose: 1 amp Atorvastatin Calcium (Lipitor -) 10 mg PO [facility] Last Admin: 08/31/17 22:51 Dose: 10 mg Benzocaine/Menthol (Cepacol Lozenge -) 1 each MM Q1H PRN PRN Reason: SORE THROAT Last Admin: 08/31/17 15:36 Dose: 1 each Carvedilol (Coreg -) 3.125 mg PO BID [facility] Last Admin: 09/01/17 09:04 Dose: 3.125 mg Furosemide (Lasix Injection -) 40 mg IVPUSH DAILY [facility] Guaifenesin (Diabetic Tussin Dm -) 10 ml PO Q6H PRN PRN Reason: COUGH Last Admin: 09/01/17 09:15 Dose: 10 ml Heparin Sodium (Porcine) (Heparin -) 5,000 unit SQ BID [facility] Last Admin: 09/01/17 09:03 Dose: 5,000 unit Insulin Aspart (Novolog Vial Sliding Scale -) 1 vial SQ [facility] PRN Reason: Protocol Last Admin: 09/01/17 16:34 Dose: Not Given Insulin Detemir (Levemir Vial) 50 units SQ BID@0700,2200 [facility] Last Admin: 09/01/17 06:46 Dose: 50 units Melatonin (Melatonin) 3 mg PO [facility] Last Admin: 08/31/17 22:52 Dose: 3 mg Methylprednisolone Sodium Succinate (Solu-Medrol -) 40 mg IVPUSH BID [facility] Last Admin: 09/01/17 09:03 Dose: 40 mg Montelukast Sodium (Singulair -) 10 mg PO [facility] Last Admin: 08/31/17 22:51 Dose: 10 mg Non-Formulary Medication (Linaclotide [Linzess]) 145 mcg PO DAILY [facility] Last Admin: 09/01/17 09:04 Dose: 145 mcg Nystatin (Nystatin Oral Suspension -) 500,000 units PO Q6HPO [facility] Stop: 09/10/17 17:59 Last Admin: 09/01/17 11:48 Dose: 500,000 units Ramipril (Altace -) 2.5 mg PO DAILY [facility] Last Admin: 09/01/17 09:04 Dose: 2.5 mg Spironolactone (Aldactone -) 25 mg PO DAILY [facility] Last Admin: 09/01/17 09:04 Dose: 25 mg - Objective Vital Signs: Vital Signs Temperature 97.5 F L 09/01/17 14:45 Pulse Rate 104 H 09/01/17 14:45 Respiratory Rate 20 09/01/17 14:31 Blood Pressure 120/74 09/01/17 14:45 O2 Sat by Pulse Oximetry (%) 116 H 09/01/17 09:00 Respiratory: Yes: On Nasal O2, Rales, Rhonchi Gastrointestinal: Yes: Normal Bowel Sounds, Soft. No: Tenderness Labs: CBC, BMP 09/01/17 05:35 09/01/17 05:35 Problem List - Problems (1) Acute on chronic systolic (congestive) heart failure Assessment/Plan: IV LASIX FOLLOW LYTES ECHO CARDIO Code(s): I50.23 - ACUTE ON CHRONIC SYSTOLIC (CONGESTIVE) HEART FAILURE (2) COPD exacerbation Assessment/Plan: SOLUMEDROL TAPER O2 NEBS Code(s): J44.1 - CHRONIC OBSTRUCTIVE PULMONARY DISEASE W (ACUTE) EXACERBATION (3) Diabetes Assessment/Plan: BGM INSULIN ENDO Code(s): E11.9 - TYPE 2 DIABETES MELLITUS WITHOUT COMPLICATIONS Qualifiers: Diabetes mellitus type: type 1 Diabetes mellitus complication status: with hyperglycemia Qualified Code(s): E10.65 - Type 1 diabetes mellitus with hyperglycemia (4) Substance abuse Assessment/Plan: TOX SCREN POSITIVE PT DENIES Code(s): F19.10 - OTHER PSYCHOACTIVE SUBSTANCE ABUSE, UNCOMPLICATED
--- NOTE | 2017-09-01 17:08 | PN ---
Progress Note, Physician History of Present Illness: pulmonary alert,still c/o sob,congestion - Current Medication List Current Medications: Active Medications Albuterol/Ipratropium (Duoneb -) 1 amp NEB Q4H PRN PRN Reason: ASTHMA Last Admin: 09/01/17 07:45 Dose: 1 amp Atorvastatin Calcium (Lipitor -) 10 mg PO [facility] Last Admin: 08/31/17 22:51 Dose: 10 mg Benzocaine/Menthol (Cepacol Lozenge -) 1 each MM Q1H PRN PRN Reason: SORE THROAT Last Admin: 08/31/17 15:36 Dose: 1 each Carvedilol (Coreg -) 3.125 mg PO BID [facility] Last Admin: 09/01/17 09:04 Dose: 3.125 mg Furosemide (Lasix Injection -) 40 mg IVPUSH DAILY [facility] Guaifenesin (Diabetic Tussin Dm -) 10 ml PO Q6H PRN PRN Reason: COUGH Last Admin: 09/01/17 09:15 Dose: 10 ml Heparin Sodium (Porcine) (Heparin -) 5,000 unit SQ BID [facility] Last Admin: 09/01/17 09:03 Dose: 5,000 unit Insulin Aspart (Novolog Vial Sliding Scale -) 1 vial SQ [facility] PRN Reason: Protocol Last Admin: 09/01/17 16:34 Dose: Not Given Insulin Detemir (Levemir Vial) 50 units SQ BID@0700,2200 [facility] Last Admin: 09/01/17 06:46 Dose: 50 units Melatonin (Melatonin) 3 mg PO [facility] Last Admin: 08/31/17 22:52 Dose: 3 mg Methylprednisolone Sodium Succinate (Solu-Medrol -) 40 mg IVPUSH BID [facility] Last Admin: 09/01/17 09:03 Dose: 40 mg Montelukast Sodium (Singulair -) 10 mg PO [facility] Last Admin: 08/31/17 22:51 Dose: 10 mg Non-Formulary Medication (Linaclotide [Linzess]) 145 mcg PO DAILY [facility] Last Admin: 09/01/17 09:04 Dose: 145 mcg Nystatin (Nystatin Oral Suspension -) 500,000 units PO Q6HPO [facility] Stop: 09/10/17 17:59 Last Admin: 09/01/17 11:48 Dose: 500,000 units Ramipril (Altace -) 2.5 mg PO DAILY [facility] Last Admin: 09/01/17 09:04 Dose: 2.5 mg Spironolactone (Aldactone -) 25 mg PO DAILY [facility] Last Admin: 09/01/17 09:04 Dose: 25 mg - Objective Vital Signs: Vital Signs Temperature 97.5 F L 09/01/17 14:45 Pulse Rate 104 H 09/01/17 14:45 Respiratory Rate 20 09/01/17 14:31 Blood Pressure 120/74 09/01/17 14:45 O2 Sat by Pulse Oximetry (%) 116 H 09/01/17 09:00 Constitutional: Yes: Well Nourished, Calm Eyes: Yes: WNL HENT: Yes: WNL Neck: Yes: WNL Cardiovascular: Yes: Regular Rate and Rhythm, S1, S2 Respiratory: Yes: Rhonchi, Wheezes (vivi rhonchi and wheezes) Gastrointestinal: Yes: Normal Bowel Sounds, Soft Extremities: Yes: WNL Edema: Yes Labs: CBC, BMP 09/01/17 05:35 09/01/17 05:35 Problem List - Problems (1) Acute on chronic systolic (congestive) heart failure Code(s): I50.23 - ACUTE ON CHRONIC SYSTOLIC (CONGESTIVE) HEART FAILURE (2) CHF (congestive heart failure) Code(s): I50.9 - HEART FAILURE, UNSPECIFIED Qualifiers: Congestive heart failure type: unspecified congestive heart failure type Congestive heart failure chronicity: acute on chronic Qualified Code(s): I50.9 - Heart failure, unspecified (3) COPD exacerbation Code(s): J44.1 - CHRONIC OBSTRUCTIVE PULMONARY DISEASE W (ACUTE) EXACERBATION (4) Cardiomyopathy Code(s): I42.9 - CARDIOMYOPATHY, UNSPECIFIED Qualifiers: Cardiomyopathy type: unspecified Qualified Code(s): I42.9 - Cardiomyopathy , unspecified (5) Diabetes Code(s): E11.9 - TYPE 2 DIABETES MELLITUS WITHOUT COMPLICATIONS Qualifiers: Diabetes mellitus type: type 1 Diabetes mellitus complication status: with hyperglycemia Qualified Code(s): E10.65 - Type 1 diabetes mellitus with hyperglycemia (6) HTN (hypertension) Code(s): I10 - ESSENTIAL (PRIMARY) HYPERTENSION Qualifiers: Hypertension type: essential hypertension Qualified Code(s): I10 - Essential (primary) hypertension (7) Polycythemia Code(s): D75.1 - SECONDARY POLYCYTHEMIA (8) Shortness of breath Code(s): R06.02 - SHORTNESS OF BREATH Assessment/Plan IMP DYSPNEA ACUTE ON CHRONIC SYSTOLIC CHF SEVERE LV DYSFUNCTION COPD O2 DEPENDENT PULMONARY HTN DM POLYCYTHEMIA LIKELY OSAS PLAN IV LASIX O2 INHALED BRONCHODILATORS DAILY WTS STRICT I+OS F/U CHEST X-RAYS SLEEP STUDIES OUTPATIENT DR LOMELI Problem List - Problems (1) Acute on chronic systolic (congestive) heart failure Code(s): I50.23 - ACUTE ON CHRONIC SYSTOLIC (CONGESTIVE) HEART FAILURE (2) CHF (congestive heart failure) Code(s): I50.9 - HEART FAILURE, UNSPECIFIED Qualifiers: Congestive heart failure type: unspecified congestive heart failure type Congestive heart failure chronicity: acute on chronic Qualified Code(s): I50.9 - Heart failure, unspecified (3) COPD exacerbation Code(s): J44.1 - CHRONIC OBSTRUCTIVE PULMONARY DISEASE W (ACUTE) EXACERBATION (4) Cardiomyopathy Code(s): I42.9 - CARDIOMYOPATHY, UNSPECIFIED Qualifiers: Cardiomyopathy type: unspecified Qualified Code(s): I42.9 - Cardiomyopathy , unspecified (5) Diabetes Code(s): E11.9 - TYPE 2 DIABETES MELLITUS WITHOUT COMPLICATIONS Qualifiers: Diabetes mellitus type: type 1 Diabetes mellitus complication status: with hyperglycemia Qualified Code(s): E10.65 - Type 1 diabetes mellitus with hyperglycemia (6) HTN (hypertension) Code(s): I10 - ESSENTIAL (PRIMARY) HYPERTENSION Qualifiers: Hypertension type: essential hypertension Qualified Code(s): I10 - Essential (primary) hypertension (7) Polycythemia Code(s): D75.1 - SECONDARY POLYCYTHEMIA (8) Shortness of breath Code(s): R06.02 - SHORTNESS OF BREATH
[2017-09-01] MEDS ORDERED: PT OWN MED DRAWER 7, Y5N ONE (20:46)
[2017-09-01] MEDS: ATORVASTATIN CA 10 MG TABLET (FP) PO SCH (21:20)
[2017-09-01] MEDS: MELATONIN 1 MG TABLET PO SCH (21:20)
[2017-09-01] MEDS: MONTELUKAST NA 10 MG TABLET PO SCH (21:20)
[2017-09-02] MEDS: NYSTATIN 500,000 UNITS/5 ML SUSPENSION PO SCH ×4 (00:30→17:34)
[2017-09-02] MEDS: INSULIN DETEMIR 100 UNITS/ML MDV SQ SCH (06:16)
[2017-09-02] MEDS: INSULIN SLIDING SCALE (NOVOLOG) 1 VIAL SQ SCH ×4 (06:16→22:00)
--- NOTE | 2017-09-02 07:54 | PN ---
Progress Note, Physician Chief Complaint: Cardiology consult No events Cough and congestion Telem NSR History of Present Illness: 57 year old female with a a PMH of HTN, insulin-dependent diabetes, asthma/ COPD (on home O2 @ 2.5 L), CHF, polycythemia, and chronic knee pain. She presents with increased bilateral pitting edema and worsened SOB (no change in O2 requirement) for the past three weeks. Echocardiogram 08/30/17: EF 13.5% Severely reduced LV function Moderately reduced RV function Moderate MR Moderate TR This is significantly reduced compared with at echocardiogram from 04/27/17 where the EF was 40%. - Current Medication List Current Medications: Active Medications Albuterol/Ipratropium (Duoneb -) 1 amp NEB Q4H PRN PRN Reason: ASTHMA Last Admin: 09/01/17 21:37 Dose: 1 amp Atorvastatin Calcium (Lipitor -) 10 mg PO HS [facility] Last Admin: 09/01/17 21:20 Dose: 10 mg Benzocaine/Menthol (Cepacol Lozenge -) 1 each MM Q1H PRN PRN Reason: SORE THROAT Last Admin: 08/31/17 15:36 Dose: 1 each Carvedilol (Coreg -) 3.125 mg PO BID [facility] Last Admin: 09/01/17 21:21 Dose: 3.125 mg Furosemide (Lasix Injection -) 40 mg IVPUSH DAILY [facility] Guaifenesin (Diabetic Tussin Dm -) 10 ml PO Q6H PRN PRN Reason: COUGH Last Admin: 09/01/17 09:15 Dose: 10 ml Heparin Sodium (Porcine) (Heparin -) 5,000 unit SQ BID [facility] Last Admin: 09/01/17 21:20 Dose: 5,000 unit Insulin Aspart (Novolog Vial Sliding Scale -) 1 vial SQ ACHS [facility] PRN Reason: Protocol Last Admin: 09/02/17 06:16 Dose: 5 units Insulin Detemir (Levemir Vial) 50 units SQ BID@0700,2200 [facility] Last Admin: 09/02/17 06:16 Dose: 50 units Melatonin (Melatonin) 3 mg PO HS [facility] Last Admin: 09/01/17 21:20 Dose: 3 mg Methylprednisolone Sodium Succinate (Solu-Medrol -) 40 mg IVPUSH BID [facility] Last Admin: 09/01/17 21:21 Dose: 40 mg Montelukast Sodium (Singulair -) 10 mg PO HS [facility] Last Admin: 09/01/17 21:20 Dose: 10 mg Non-Formulary Medication (Linaclotide [Linzess]) 145 mcg PO DAILY [facility] Last Admin: 09/01/17 09:04 Dose: 145 mcg Nystatin (Nystatin Oral Suspension -) 500,000 units PO Q6HPO [facility] Stop: 09/10/17 17:59 Last Admin: 09/02/17 06:06 Dose: 500,000 units Ramipril (Altace -) 2.5 mg PO DAILY [facility] Last Admin: 09/01/17 09:04 Dose: 2.5 mg Spironolactone (Aldactone -) 25 mg PO DAILY [facility] Last Admin: 09/01/17 09:04 Dose: 25 mg - Objective Vital Signs: Vital Signs Temperature 97.4 F L 09/02/17 06:00 Pulse Rate 92 H 09/02/17 06:00 Respiratory Rate 18 09/02/17 06:00 Blood Pressure 134/84 09/02/17 06:00 O2 Sat by Pulse Oximetry (%) 98 09/01/17 21:00 Constitutional: Yes: No Distress Eyes: Yes: Conjunctiva Clear HENT: Yes: WNL Cardiovascular: Yes: Regular Rate and Rhythm, S1, S2. No: JVD Respiratory: Yes: CTA Bilaterally, SOB on Exertion. No: Orthopnea, Rhonchi Gastrointestinal: Yes: WNL, Soft, Abdomen, Obese Edema: Yes Edema: LLE: 2+, RLE: 2+ Labs: CBC, BMP 09/01/17 05:35 09/01/17 05:35 Problem List - Problems (1) Acute on chronic systolic (congestive) heart failure Code(s): I50.23 - ACUTE ON CHRONIC SYSTOLIC (CONGESTIVE) HEART FAILURE (2) Substance abuse Code(s): F19.10 - OTHER PSYCHOACTIVE SUBSTANCE ABUSE, UNCOMPLICATED (3) Abnormal liver enzymes Code(s): R74.8 - ABNORMAL LEVELS OF OTHER SERUM ENZYMES (4) Cardiomyopathy Code(s): I42.9 - CARDIOMYOPATHY, UNSPECIFIED Qualifiers: Cardiomyopathy type: unspecified Qualified Code(s): I42.9 - Cardiomyopathy , unspecified Assessment/Plan nonischemic cardiomyopathy with significant reduction of LVEF. +cocaine use -CHF regimen of carvedilol low dose, low dose ramipril, and spironolactone Continue present dose of Lasix, ACEI adn spironolactone. On low dose Coreg. DC Statin and monitor LFT
[2017-09-02] MEDS ORDERED: FUROSEMIDE 40 MG/4 ML INJECTABLE VIAL IVPUSH SCH (10:00)
[2017-09-02] MEDS: methylPREDNISolone NA SUCC 40 MG/1 ML VIAL IVPUSH SCH (10:29)
[2017-09-02] MEDS: HEPARIN NA (PORCINE) 5,000 UNITS/ML 1ML VIAL SQ SCH (10:29)
[2017-09-02] MEDS: SPIRONOLACTONE 25 MG TABLET (FP) PO SCH (10:29)
[2017-09-02] MEDS: RAMIPRIL 2.5 MG CAPSULE (FP) PO SCH (10:29)
[2017-09-02] MEDS: PATIENT'S OWN MEDICATION (NON-FORMULARY) (Linaclotide [Linzess] 145 MCG) PO SCH (10:29)
[2017-09-02] MEDS: CARVEDILOL 3.125 MG TABLET (FP) PO SCH (10:29)
[2017-09-02] MEDS: guaiFENesin/D-M SUGAR-FREE/ACLHOL-FREE 118 ML BOTTLE PO PRN (10:41)
[2017-09-02] MEDS: ALBUTEROL SO4 2.5/IPRATROPIUM 0.5 INH SOL 3 ML VIAL.NEB. NEB PRN ×2 (11:15→20:03)
[2017-09-02] MEDS: BENZOCAINE/MENTH/CETYLPYRD CL 1 EACH LOZENGE MM PRN (12:16)
--- NOTE | 2017-09-02 14:06 | PN ---
Progress Note (short form) - Note Progress Note: Breathing feels slightly better. Saturation 98% on 2 L NC O2. Still with some dizziness. No acute events overnight. Intake & Output 08/30/17 08/31/17 09/01/17 09/02/17 23:59 23:59 23:59 23:59 Intake Total 740 650 140 Balance 740 650 140 Weight 267 lb 6.4 oz Last Vital Signs Temp Pulse Resp BP Pulse Ox 98.3 F 92 H 18 100/63 98 09/02/17 10:00 09/02/17 10:00 09/02/17 10:00 09/02/17 10:00 09/02/17 10:00 Active Medications Albuterol/Ipratropium (Duoneb -) 1 amp NEB Q4H PRN PRN Reason: ASTHMA Last Admin: 09/02/17 11:15 Dose: 1 amp Atorvastatin Calcium (Lipitor -) 10 mg PO HS [facility] Last Admin: 09/01/17 21:20 Dose: 10 mg Benzocaine/Menthol (Cepacol Lozenge -) 1 each MM Q1H PRN PRN Reason: SORE THROAT Last Admin: 09/02/17 12:16 Dose: 1 each Carvedilol (Coreg -) 3.125 mg PO BID [facility] Last Admin: 09/02/17 10:29 Dose: 3.125 mg Furosemide (Lasix Injection -) 40 mg IVPUSH DAILY [facility] Last Admin: 09/02/17 10:29 Dose: 40 mg Guaifenesin (Diabetic Tussin Dm -) 10 ml PO Q6H PRN PRN Reason: COUGH Last Admin: 09/02/17 10:41 Dose: 10 ml Heparin Sodium (Porcine) (Heparin -) 5,000 unit SQ BID [facility] Last Admin: 09/02/17 10:29 Dose: 5,000 unit Insulin Aspart (Novolog Vial Sliding Scale -) 1 vial SQ ACHS [facility] PRN Reason: Protocol Last Admin: 09/02/17 12:13 Dose: Not Given Insulin Detemir (Levemir Vial) 50 units SQ BID@0700,2200 [facility] Last Admin: 09/02/17 06:16 Dose: 50 units Melatonin (Melatonin) 3 mg PO HS [facility] Last Admin: 09/01/17 21:20 Dose: 3 mg Methylprednisolone Sodium Succinate (Solu-Medrol -) 40 mg IVPUSH BID [facility] Last Admin: 09/02/17 10:29 Dose: 40 mg Montelukast Sodium (Singulair -) 10 mg PO HS [facility] Last Admin: 09/01/17 21:20 Dose: 10 mg Non-Formulary Medication (Linaclotide [Linzess]) 145 mcg PO DAILY [facility] Last Admin: 09/02/17 10:29 Dose: 145 mcg Nystatin (Nystatin Oral Suspension -) 500,000 units PO Q6HPO [facility] Stop: 09/10/17 17:59 Last Admin: 09/02/17 12:15 Dose: 500,000 units Ramipril (Altace -) 2.5 mg PO DAILY [facility] Last Admin: 09/02/17 10:29 Dose: 2.5 mg Spironolactone (Aldactone -) 25 mg PO DAILY [facility] Last Admin: 09/02/17 10:29 Dose: 25 mg Constitutional: Yes: NAD HENT: Yes: WNL Neck: Yes: WNL Respiratory: Yes: Bibasilar rales / rhonchi Gastrointestinal: Yes: Soft Cardiovascular: Yes: Regular Rate and Rhythm (NL S1S2, no MRHG) JVD: No Extremities: Yes: WNL Edema: Yes Edema: LLE: Trace, RLE: Trace Neurological: Yes: Alert, Non-focal Laboratory Results - last 24 hr 09/01/17 09/01/17 09/02/17 16:33 21:15 06:03 POC Glucometer 117 196 184 09/02/17 11:49 POC Glucometer 103 Problem List - Problems (1) Acute on chronic systolic (congestive) heart failure Code(s): I50.23 - ACUTE ON CHRONIC SYSTOLIC (CONGESTIVE) HEART FAILURE (2) CHF (congestive heart failure) Code(s): I50.9 - HEART FAILURE, UNSPECIFIED Qualifiers: Congestive heart failure type: unspecified congestive heart failure type Congestive heart failure chronicity: acute on chronic Qualified Code(s): I50.9 - Heart failure, unspecified (3) COPD exacerbation Code(s): J44.1 - CHRONIC OBSTRUCTIVE PULMONARY DISEASE W (ACUTE) EXACERBATION (4) Cardiomyopathy Code(s): I42.9 - CARDIOMYOPATHY, UNSPECIFIED Qualifiers: Cardiomyopathy type: unspecified Qualified Code(s): I42.9 - Cardiomyopathy , unspecified (5) Diabetes Code(s): E11.9 - TYPE 2 DIABETES MELLITUS WITHOUT COMPLICATIONS Qualifiers: Diabetes mellitus type: type 1 Diabetes mellitus complication status: with hyperglycemia Qualified Code(s): E10.65 - Type 1 diabetes mellitus with hyperglycemia (6) HTN (hypertension) Code(s): I10 - ESSENTIAL (PRIMARY) HYPERTENSION Qualifiers: Hypertension type: essential hypertension Qualified Code(s): I10 - Essential (primary) hypertension (7) Polycythemia Code(s): D75.1 - SECONDARY POLYCYTHEMIA (8) Shortness of breath Code(s): R06.02 - SHORTNESS OF BREATH IMP DYSPNEA ACUTE ON CHRONIC SYSTOLIC CHF SEVERE LV DYSFUNCTION COPD O2 DEPENDENT PULMONARY HTN DM POLYCYTHEMIA HIGH CLINICAL SUSPICION FOR SLEEP APNEA PLAN IV LASIX O2 INHALED BRONCHODILATORS DAILY WTS STRICT I+OS HUMIDIFY O2 SHOULD HAVE FORMAL SLEEP APNEA WORKUP AFTER D/C DR HICKMAN
[2017-09-02] MEDS ORDERED: PT OWN MED DRAWER 7, Y5N ONE (19:16)
--- NOTE | 2017-09-02 22:31 | PN ---
Progress Note, Physician Chief Complaint: CHF, SOB History of Present Illness: NAD, feels a bit better on Nasal o2 - Current Medication List Current Medications: Active Medications Albuterol/Ipratropium (Duoneb -) 1 amp NEB Q4H PRN PRN Reason: ASTHMA Last Admin: 09/02/17 20:03 Dose: 1 amp Atorvastatin Calcium (Lipitor -) 10 mg PO [facility] Last Admin: 09/01/17 21:20 Dose: 10 mg Benzocaine/Menthol (Cepacol Lozenge -) 1 each MM Q1H PRN PRN Reason: SORE THROAT Last Admin: 09/02/17 12:16 Dose: 1 each Carvedilol (Coreg -) 3.125 mg PO BID [facility] Last Admin: 09/02/17 10:29 Dose: 3.125 mg Furosemide (Lasix Injection -) 40 mg IVPUSH DAILY [facility] Last Admin: 09/02/17 10:29 Dose: 40 mg Guaifenesin (Diabetic Tussin Dm -) 10 ml PO Q6H PRN PRN Reason: COUGH Last Admin: 09/02/17 10:41 Dose: 10 ml Heparin Sodium (Porcine) (Heparin -) 5,000 unit SQ BID [facility] Last Admin: 09/02/17 10:29 Dose: 5,000 unit Insulin Aspart (Novolog Vial Sliding Scale -) 1 vial SQ [facility] PRN Reason: Protocol Last Admin: 09/02/17 17:34 Dose: Not Given Insulin Detemir (Levemir Vial) 50 units SQ BID@0700,2200 [facility] Last Admin: 09/02/17 06:16 Dose: 50 units Melatonin (Melatonin) 3 mg PO [facility] Last Admin: 09/01/17 21:20 Dose: 3 mg Methylprednisolone Sodium Succinate (Solu-Medrol -) 40 mg IVPUSH BID [facility] Last Admin: 09/02/17 10:29 Dose: 40 mg Montelukast Sodium (Singulair -) 10 mg PO [facility] Last Admin: 09/01/17 21:20 Dose: 10 mg Non-Formulary Medication (Linaclotide [Linzess]) 145 mcg PO DAILY [facility] Last Admin: 09/02/17 10:29 Dose: 145 mcg Nystatin (Nystatin Oral Suspension -) 500,000 units PO Q6HPO [facility] Stop: 09/10/17 17:59 Last Admin: 09/02/17 17:34 Dose: 500,000 units Ramipril (Altace -) 2.5 mg PO DAILY [facility] Last Admin: 09/02/17 10:29 Dose: 2.5 mg Spironolactone (Aldactone -) 25 mg PO DAILY [facility] Last Admin: 09/02/17 10:29 Dose: 25 mg - Objective Vital Signs: Vital Signs Temperature 97.8 F 09/02/17 18:01 Pulse Rate 101 H 09/02/17 18:01 Respiratory Rate 20 09/02/17 18:01 Blood Pressure 99/76 09/02/17 18:01 O2 Sat by Pulse Oximetry (%) 98 09/02/17 10:00 Constitutional: Yes: Well Nourished, No Distress, Calm Cardiovascular: Yes: Regular Rate and Rhythm Respiratory: Yes: Regular Gastrointestinal: Yes: Normal Bowel Sounds, Soft Edema: Yes Edema: LLE: Trace, RLE: Trace Peripheral Pulses WNL: Yes Neurological: Yes: Alert, Oriented Psychiatric: Yes: Alert, Oriented Labs: CBC, BMP 09/01/17 05:35 09/01/17 05:35 Problem List - Problems (1) Constipation Assessment/Plan: -Chronic -on linzess Code(s): K59.00 - CONSTIPATION, UNSPECIFIED (2) Diabetes Assessment/Plan: -in insulin sliding scale -diabetic diet -endocrinology consult -last A1c at 10.4 Code(s): E11.9 - TYPE 2 DIABETES MELLITUS WITHOUT COMPLICATIONS Qualifiers: Diabetes mellitus type: type 1 Diabetes mellitus complication status: with hyperglycemia Qualified Code(s): E10.65 - Type 1 diabetes mellitus with hyperglycemia (3) CHF (congestive heart failure) Assessment/Plan: -acute on chronic -IV lasix -continue aldactone ramipril and stop Metoprolol and start coreg -I/O's -CXR -monitor lytes -low EF noted : will need to FU at Heart failure clinic at [facility] on discharge Code(s): I50.9 - HEART FAILURE, UNSPECIFIED Qualifiers: Congestive heart failure type: unspecified congestive heart failure type Congestive heart failure chronicity: acute on chronic (4) Abnormal liver enzymes Assessment/Plan: -GI consult -check Hepatitis panel -monitor trend -last U/S abdomen 04/2017 showed hepatomegaly -d/c statin Code(s): R74.8 - ABNORMAL LEVELS OF OTHER SERUM ENZYMES Assessment/Plan see problem list
--- NOTE | 2017-09-02 23:02 | PN ---
Progress Note, Physician Chief Complaint: short of breath in bed,weak and light headed standing History of Present Illness: chf,ashd,copd,dm hyperglycemia,insulin requirements higher - Current Medication List Current Medications: Active Medications Albuterol/Ipratropium (Duoneb -) 1 amp NEB Q4H PRN PRN Reason: ASTHMA Last Admin: 09/02/17 20:03 Dose: 1 amp Atorvastatin Calcium (Lipitor -) 10 mg PO [facility] Last Admin: 09/01/17 21:20 Dose: 10 mg Benzocaine/Menthol (Cepacol Lozenge -) 1 each MM Q1H PRN PRN Reason: SORE THROAT Last Admin: 09/02/17 12:16 Dose: 1 each Carvedilol (Coreg -) 3.125 mg PO BID [facility] Last Admin: 09/02/17 10:29 Dose: 3.125 mg Furosemide (Lasix Injection -) 40 mg IVPUSH DAILY [facility] Last Admin: 09/02/17 10:29 Dose: 40 mg Guaifenesin (Diabetic Tussin Dm -) 10 ml PO Q6H PRN PRN Reason: COUGH Last Admin: 09/02/17 10:41 Dose: 10 ml Heparin Sodium (Porcine) (Heparin -) 5,000 unit SQ BID [facility] Last Admin: 09/02/17 10:29 Dose: 5,000 unit Insulin Aspart (Novolog Vial Sliding Scale -) 1 vial SQ [facility] PRN Reason: Protocol Last Admin: 09/02/17 17:34 Dose: Not Given Insulin Detemir (Levemir Vial) 50 units SQ BID@0700,2200 [facility] Last Admin: 09/02/17 06:16 Dose: 50 units Melatonin (Melatonin) 3 mg PO [facility] Last Admin: 09/01/17 21:20 Dose: 3 mg Methylprednisolone Sodium Succinate (Solu-Medrol -) 40 mg IVPUSH BID [facility] Last Admin: 09/02/17 10:29 Dose: 40 mg Montelukast Sodium (Singulair -) 10 mg PO [facility] Last Admin: 09/01/17 21:20 Dose: 10 mg Non-Formulary Medication (Linaclotide [Linzess]) 145 mcg PO DAILY [facility] Last Admin: 09/02/17 10:29 Dose: 145 mcg Nystatin (Nystatin Oral Suspension -) 500,000 units PO Q6HPO [facility] Stop: 09/10/17 17:59 Last Admin: 09/02/17 17:34 Dose: 500,000 units Ramipril (Altace -) 2.5 mg PO DAILY [facility] Last Admin: 09/02/17 10:29 Dose: 2.5 mg Spironolactone (Aldactone -) 25 mg PO DAILY [facility] Last Admin: 09/02/17 10:29 Dose: 25 mg - Objective Vital Signs: Vital Signs Temperature 97.8 F 09/02/17 18:01 Pulse Rate 101 H 09/02/17 18:01 Respiratory Rate 20 09/02/17 18:01 Blood Pressure 99/76 09/02/17 18:01 O2 Sat by Pulse Oximetry (%) 98 09/02/17 10:00 Constitutional: Yes: Anxious Eyes: Yes: EOM Intact HENT: Yes: Normocephalic Neck: Yes: Trachea Midline Cardiovascular: Yes: Tachycardia, JVD, S3 Respiratory: Yes: Rales, SOB, Tachypnea Gastrointestinal: Yes: Abdomen, Obese ...Rectal Exam: Yes: Deferred Genitourinary: Yes: WNL Extremities: Yes: Delayed Capillary Refill, Erythema Edema: LLE: 3+, RLE: 3+ Neurological: Yes: Alert, Oriented Labs: CBC, BMP 09/01/17 05:35 09/01/17 05:35 Problem List - Problems (1) Controlled type 1 diabetes mellitus with peripheral vascular disease Code(s): E10.51 - TYPE 1 DIABETES W DIABETIC PERIPHERAL ANGIOPATH W/O GANGRENE (2) Acute on chronic systolic (congestive) heart failure Code(s): I50.23 - ACUTE ON CHRONIC SYSTOLIC (CONGESTIVE) HEART FAILURE (3) Asthmatic bronchitis Code(s): J45.909 - UNSPECIFIED ASTHMA, UNCOMPLICATED (4) Bronchiolitis Code(s): J21.9 - ACUTE BRONCHIOLITIS, UNSPECIFIED (5) CHF (congestive heart failure) Code(s): I50.9 - HEART FAILURE, UNSPECIFIED Qualifiers: Congestive heart failure type: unspecified congestive heart failure type Congestive heart failure chronicity: acute on chronic Assessment/Plan Current Active Problems Acute on chronic systolic (congestive) heart failure (Acute) Controlled type 1 diabetes mellitus with peripheral vascular disease (Acute) Substance abuse (Acute) Laboratory Results - last 24 hr 01/09/02/17 09/02/17 06:03 11:49 17:30 POC Glucometer 184 103 124 09/02/17 22:21 POC Glucometer 176 Laboratory Tests 08/30/17 09/01/17 09/01/17 07:08 05:35 05:35 WBC 15.5 H D RBC 5.42 H Hgb 16.1 H Hct 51.4 H MCV 94.9 MCH 29.8 Sodium 137 Potassium 4.5 Chloride 103 Carbon Dioxide 24 Anion Gap 10 Creat Clearance w eGFR 25.77 POC Glucometer AST 341 H ALT 314 H Total LDL Cholesterol 64 09/01/17 09/01/17 09/01/17 11:46 16:33 21:15 WBC RBC Hgb Hct MCV MCH Sodium Potassium Chloride Carbon Dioxide Anion Gap Creat Clearance w eGFR POC Glucometer 96 117 196 AST ALT Total LDL Cholesterol 09/02/17 06:03 WBC RBC Hgb Hct MCV MCH Sodium Potassium Chloride Carbon Dioxide Anion Gap Creat Clearance w eGFR POC Glucometer 184 AST ALT Total LDL Cholesterol plan: continue with diuresis continue levemir insulin 30 uinits bid bgm qid novolog doses
[2017-09-02] MEDS ORDERED: INSULIN DETEMIR 100 UNITS/ML MDV SQ SCH (23:03)
[2017-09-03] MEDS: HEPARIN NA (PORCINE) 5,000 UNITS/ML 1ML VIAL SQ SCH (00:05)
[2017-09-03] MEDS: NYSTATIN 500,000 UNITS/5 ML SUSPENSION PO SCH ×2 (00:05→05:11)
[2017-09-03] MEDS: ATORVASTATIN CA 10 MG TABLET (FP) PO SCH (00:05)
[2017-09-03] MEDS: MONTELUKAST NA 10 MG TABLET PO SCH (00:05)
[2017-09-03] MEDS: CARVEDILOL 3.125 MG TABLET (FP) PO SCH (00:05)
[2017-09-03] MEDS: methylPREDNISolone NA SUCC 40 MG/1 ML VIAL IVPUSH SCH (00:05)
[2017-09-03] MEDS ORDERED: PT OWN MED DRAWER 7, Y5N ONE (00:07)
[2017-09-03] MEDS: INSULIN SLIDING SCALE (NOVOLOG) 1 VIAL SQ SCH ×2 (00:08→07:25)
[2017-09-03] MEDS: MELATONIN 1 MG TABLET PO SCH (00:08)
[2017-09-03] MEDS ORDERED: guaiFENesin/CODEINE 5 ML UNIT-DOSE CUPS PO PRN (02:29)
[2017-09-03 06:49] VITALS: BP 136/85; PULSE 80; TEMP 97.6
[2017-09-03] MEDS: ALBUTEROL SO4 2.5/IPRATROPIUM 0.5 INH SOL 3 ML VIAL.NEB. NEB PRN (08:40)
[2017-09-03 08:44] LABS: BASO % 0.2 % (0-2.0); HEMATOCRIT 50.8 % (32.4-45.2); LYMPH % 5.8 % (8-40); MCH 29.8 pg (25.7-33.7); MCHC 31.5 g/dl (32.0-36.0); MEAN CELL VOLUME 94.4 fl (80-96); MONO % 8.5 % (3.8-10.2); NEUT % 85.5 % (42.8-82.8); PLATELET COUNT 331 K/MM3 (134-434); RBC 5.38 M/mm3 (3.60-5.2); RDW 17.1 % (11.6-15.6); WHITE BLOOD COUNT 13.5 K/mm3 (4.0-10.0)
[2017-09-03 09:07] LABS: ALBUMIN 2.5 g/dl (3.4-5.0); ALK PHOS 308 U/L (45-117); ANION GAP 5 (8-16); BLOOD UREA NITROGEN 60 mg/dL (7-18); CALCIUM 7.9 mg/dL (8.5-10.1); CHLORIDE 105 mmol/L (98-107); CO2 29 mmol/L (21-32); CREATININE 1.4 mg/dL (0.55-1.02); GLUCOSE,RANDOM 153 mg/dL (74-106); SGPT/ALT 301 U/L (12-78); SODIUM 139 mmol/L (136-145); TOT PROT 5.6 g/dl (6.4-8.2)
[2017-09-03 09:11] LABS: POTASSIUM 4.7 mmol/L (3.5-5.1); SGOT/AST 160 U/L (15-37)
[2017-09-05 08:07] LABS: CMV IgM < 30.0 AU/mL (0.0-29.9)
[2017-09-06 00:11] LABS: HBSAG SCREEN Negative (Negative); HEP A AB, IGM Negative (Negative); HEP B CORE AB, TOT Negative (Negative)
== END 2017-09-03 09:45 | disposition left against medical advice (07) | DRG 292 ==
LOC: JER 12:24 → JERBED 17:05 → J4S 08-30 13:27
PROVIDERS: ADMIT Family Medicine; ATTEND Family Medicine
DX: I11.0 Hypertensive heart disease with heart failure (principal); J44.1 Chronic obstructive pulmonary disease with (acute) exacerbation; Z68.42 Body mass index [BMI] 45.0-49.9, adult; N17.9 Acute kidney failure, unspecified; I50.23 Acute on chronic systolic (congestive) heart failure; E78.00 Pure hypercholesterolemia, unspecified; D75.1 Secondary polycythemia; K21.9 Gastro-esophageal reflux disease without esophagitis; F19.10 Other psychoactive substance abuse, uncomplicated; F14.10 Cocaine abuse, uncomplicated; E10.65 Type 1 diabetes mellitus with hyperglycemia; I27.20 Pulmonary hypertension, unspecified; R74.8 Abnormal levels of other serum enzymes; G47.33 Obstructive sleep apnea (adult) (pediatric); I08.1 Rheumatic disorders of both mitral and tricuspid valves; I42.8 Other cardiomyopathies; M25.561 Pain in right knee; M25.562 Pain in left knee; E10.51 Type 1 diabetes mellitus with diabetic peripheral angiopathy without gangrene; E66.01 Morbid (severe) obesity due to excess calories; Z99.81 Dependence on supplemental oxygen; Z79.4 Long term (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 of insulin
CPT/HCPCS: 36415; 71045-TC; 71046-TC; 80053; 80061; 80307; 81003; 82550; 82553; 82962; 83036; 83721; 83880; 84484; 85025; 85651; 86140; 86645; 86664; 86704; 86706; 86708; 86735; 86803; 87340; 87389; 87804; 93005; 93010; 93306-TC; 93971-TC; 94640; 99285-25; J1644

== ENCOUNTER 2018-04-20 14:05 | Inpatient (IN) | payer OTHER ==
[2018-04-20] MEDS ORDERED: BENZOIN/ALOE VERA/STORAX/TOLU 58 ML BOTTLE ONE (14:15)
[2018-04-20] MEDS ORDERED: DEXTROSE 50%-WATER - 25 GM/50 ML VIAL IVPUSH ONE ×2 (14:19→17:00)
--- NOTE | 2018-04-20 14:19 | PDOC ---
Attending Attestation - Resident Resident Name: April Valdivia - ED Attending Attestation I have performed the following: I have examined & evaluated the patient, The case was reviewed & discussed with the resident, I agree w/resident's findings & plan, Exceptions are as noted - HPI HPI: 58 yo F history DM presents with AMS. Brought in by EMS, BGM 40s. She took her medication this morning but barely ate anything. No recent illness. No dysuria. - Physicial Exam PE: GENERAL: Lethargic, altered. HEAD: No signs of trauma EYES: PERRLA, EOMI, sclera anicteric, conjunctiva clear ENT: Auricles normal inspection, hearing grossly normal, nares patent, oropharynx clear without exudates. Moist mucosa NECK: Normal ROM, supple, no lymphadenopathy, JVD, or masses LUNGS: Breath sounds equal, clear to auscultation bilaterally. No wheezes, and no crackles HEART: Regular rate and rhythm, normal S1 and S2, no murmurs, rubs or gallops ABDOMEN: Soft, nontender, normoactive bowel sounds. No guarding, no rebound. No masses EXTREMITIES: Normal range of motion, no edema. No clubbing or cyanosis. No cords, erythema, or tenderness NEUROLOGICAL: Limited due to AMS. SKIN: Diaphoretic, normal turgor, no rashes or lesions noted. - Medical Decision Making Pt with hypoglycemia on arrival, second episode in ED after eating a sandwich. Initial temp 94, likely due to hypoglycemia, as she recovered quickly. Will admit for multiple hypoglycemic episodes despite PO intake.
[2018-04-20 14:45] LABS: BASO % 0.5 % (0-2.0); EOS % 0.6 % (0-4.5); HEMATOCRIT 50.5 % (32.4-45.2); HEMOGLOBIN 16.4 GM/dL (10.7-15.3); LYMPH % 14.3 % (8-40); MCH 28.9 pg (25.7-33.7); MCHC 32.5 g/dl (32.0-36.0); MEAN CELL VOLUME 89.2 fl (80-96); MEAN PLT VOLUME 8.1 fl (7.5-11.1); MONO % 12.5 % (3.8-10.2); NEUT % 72.1 % (42.8-82.8); PLATELET COUNT 327 K/MM3 (134-434); RBC 5.66 M/mm3 (3.60-5.2); RDW 16.1 % (11.6-15.6); WHITE BLOOD COUNT 9.8 K/mm3 (4.0-10.0)
[2018-04-20 14:52] VITALS: BMI 33.5
--- NOTE | 2018-04-20 15:05 | PDOC ---
History of Present Illness - General Chief Complaint: Blood Sugar Problem Stated Complaint: SYNCOPE Time Seen by Provider: 04/20/18 14:19 History Source: EMS, Family Exam Limitations: Clinical Condition - History of Present Illness Initial Comments: This is a 58 YOF with h/o insulin-dependent type II DM who was BIBEMS for syncope and subsequent altered mental status onset at the [facility] across the street, while she was at an appointment. EMS found her very confused, minimally responsive, diaphoretic. They measured her FSBG to be 42 just CLAIMS CLERK to the ED. On initial history, the patient is unable to provide any relevant history or symptoms 2/2 decreased responsivenes/obtundation. The notes that she has been taking her insulin as per usual. The daughter notes that a similar incident happened 2 days ago for which the patient was seen at [facility], and discharged without any abnormalities found on workup other than hypoglycemia. On awakening, the patient notes that she ate a small amount for breakfast today (less than normal) and took her normal dose of insulin. She denies any symptoms other than feeling tired. Past History - Past Medical History Allergies/Adverse Reactions: Allergies Allergy/AdvReac Type Severity Reaction Status Date / Time No Known Allergies Allergy Verified 04/20/18 14:42 Home Medications: Ambulatory Orders Albuterol 2.5/Ipratropium 0.5 [Duoneb -] 1 neb NEB Q4H PRN #180 amp 05/03/17 Atorvastatin Ca [Lipitor] 10 mg PO HS #30 tab 05/03/17 Linaclotide [Linzess] 145 mcg PO DAILY #30 cap 05/03/17 Montelukast Na [Singulair -] 10 mg PO HS #30 tab 05/03/17 Esomeprazole Magnesium [Nexium 24Hr] 20 mg PO 04/20/18 Insulin (Levemir) [Levemir Flexpen -] 70 units SQ DAILY 04/20/18 Insulin Lispro [Humalog] 6 unit SQ TID 04/20/18 Linagliptin/Metformin HCl [Jentadueto 2.5 mg-1000 mg Tab] BID 04/20/18 Metoprolol Tartrate [Lopressor -] 50 mg PO DAILY 04/20/18 Asthma: Yes Cancer: No COPD: No DVT: No Diabetes: Yes GI Disorders: No Disorders: No HTN: Yes Hypercholesterolemia: Yes Liver Disease: No Thyroid Disease: No - Surgical History Cholecystectomy: Yes - Immunization History Immunization Up to Date: Yes - Suicide/Smoking/Psychosocial Hx Smoking History: Never smoked Have you smoked in the past 12 months: Yes Number of Cigarettes Smoked Daily: 6 If you are a former smoker, when did you quit?: 1 month ago Cigars Per Day: 0 Information on smoking cessation initiated: No 'Breaking Loose' booklet given: 07/01/17 Hx Alcohol Use: No Drug/Substance Use Hx: No Substance Use Type: None Hx Substance Use Treatment: No *Physical Exam - Vital Signs Last Vital Signs Temp Pulse Resp BP Pulse Ox 78 17 133/75 95 04/20/18 14:56 04/20/18 14:56 04/20/18 14:56 04/20/18 14:56 - Physical Exam General Appearance: Yes: Other (initially obtunded, responsive to pain, opens eyes to loud voice, very diaphoretic, accompanied by family at bedside) HEENT: positive: EOMI, REESE, Normal ENT Inspection, Normal Voice, Hearing Grossly Normal, Other (initially disconjugate gaze). negative: Scleral Icterus (R), Scleral Icterus (L), Nasal Congestion Neck: positive: Trachea midline, Supple. negative: Tender, Rigid Respiratory/Chest: positive: Lungs Clear, Normal Breath Sounds. negative: Respiratory Distress, Crackles, Rhonchi, Stridor, Wheezing Cardiovascular: positive: Regular Rhythm, S1, S2, Tachycardia. negative: Edema , JVD, Murmur Gastrointestinal/Abdominal: positive: Normal Bowel Sounds, Soft, Protuberent ( not tight). negative: Tender, Organomegaly, Pulsatile Mass, Guarding Musculoskeletal: positive: Normal Inspection. negative: Decreased Range of Motion, Vertebral Tenderness Extremity: positive: Normal Capillary Refill, Normal Inspection, Normal Range of Motion. negative: Tender, Cyanosis Integumentary: positive: Normal Color, Dry, Warm. negative: Erythema, Rash, Bruising Neurologic: positive: Other (initially unable to participate in neurological exam but moving all extremities, responds to pain and loud voice, dysconjugate gaze but pupils are equal and reactive to light and accomodation) Heart Score/ECG Review #1 Sinus tachycardia, rate of 138, right axis deviation, prolonged QT grossly and calculated QTc is 572 ms which looks like a reasonable calculation compared with gross appearance, incomplete RBBB, no ischemic ST-T changes ED Treatment Course - LABORATORY CBC & Chemistry Diagram: 04/20/18 14:28 04/20/18 14:28 - ADDITIONAL ORDERS Additional order review: Laboratory Results 04/20/18 14:19 POC Glucometer [id number] 04/20/18 04/20/18 14:28 14:19 RBC 5.66 H MCV 89.2 MCHC 32.5 RDW 16.1 H MPV 8.1 Neutrophils % 72.1 Lymphocytes % 14.3 D Monocytes % 12.5 H Eosinophils % 0.6 D Basophils % 0.5 POC Glucometer [id number] - Medications Given in the ED: ED Medications Discontinued Medications Generic Name Dose Route Start Last Admin Trade Name Corey PRN Reason Stop Dose Admin Dextrose 25 gm 04/20/18 14:19 04/20/18 14:15 D50w (Vial) - IVPUSH 04/20/18 14:20 25 gm NOW ONE Administration Medical Decision Making - Medical Decision Making Pt p/w hypoglycemia FSBG per EMS en route was 42. 1 amp D50 given, subsequently FSBG is 178. Initial Vital Signs Pulse Resp BP Pulse Ox 138 H 16 160/106 95 04/20/18 14:05 04/20/18 14:05 04/20/18 14:05 04/20/18 14:05 Exam: INITIAL examination as noted in Physical Exam section. About one minute after giving D50 the patient awakens, no longer obtunded, smiling, answering questions appropriately, diaphoresis rapidly resolving, no longer dysconjugate gaze, normal neurological examination, A/O x4. DDX IBNLT: simple hypoglycemia (e.g. non-adherence to medications, diet-related , etc), EtOH or drug use, starvation, drug-induced, infection/inflammation/ sepsis (i.e. UTI/pyelonephritis, PNA, bronchitis, skin infection, pancreatitis, etc), ACS, CVA/TIA, renal failure, etc. W/U ordered: FSBG CBCD CMP Mg Phos Serum Trop CK CKMB EKG CXR UA UCx hCG Additional TX ordered: IVF, potassium EKG: Reviewed; results as noted in ECG Review section. Prolonged QT grossly and calculated by computer. CXR: Pulmonary vascular congestion with interval worsening from prior study. Reassessment: Patient states much improved, still sleepy, no pain, no confusion. Laboratory Tests 04/20/18 04/20/18 04/20/18 14:19 14:22 14:28 WBC 9.8 RBC 5.66 H Hgb 16.4 H Hct 50.5 H MCV 89.2 MCH 28.9 MCHC 32.5 RDW 16.1 H Plt Count 327 MPV 8.1 Absolute Neuts (auto) 7.1 Neutrophils % 72.1 Lymphocytes % 14.3 D Monocytes % 12.5 H Eosinophils % 0.6 D Basophils % 0.5 Nucleated RBC % 0 PT with INR INR Sodium Potassium Chloride Carbon Dioxide Anion Gap BUN Creatinine Creat Clearance w eGFR POC Glucometer [id number] Random Glucose Calcium Total Bilirubin AST ALT Alkaline Phosphatase Creatine Kinase Troponin I Total Protein Albumin TSH Blood Type O POSITIVE Antibody Screen Negative 04/20/18 04/20/18 04/20/18 14:28 14:28 16:56 WBC RBC Hgb Hct MCV MCH MCHC RDW Plt Count MPV Absolute Neuts (auto) Neutrophils % Lymphocytes % Monocytes % Eosinophils % Basophils % Nucleated RBC % PT with INR 13.10 H INR 1.16 H Sodium 140 Potassium 3.2 L Chloride 104 Carbon Dioxide 25 Anion Gap 11 BUN 17 Creatinine 0.9 Creat Clearance w eGFR > 60 POC Glucometer < 50 Random Glucose 218 H Calcium 9.0 Total Bilirubin 0.5 AST 24 ALT 19 Alkaline Phosphatase 176 H Creatine Kinase 119 Troponin I 0.02 Total Protein 8.1 Albumin 3.6 TSH 0.81 Blood Type Antibody Screen Vital Signs Temperature 94.9 F L 04/20/18 15:10 Pulse Rate 108 H 04/20/18 15:10 Respiratory Rate 17 04/20/18 14:56 Blood Pressure 133/75 04/20/18 14:56 O2 Sat by Pulse Oximetry (%) 95 04/20/18 14:56 04/20/18 15:38 Patient hypothermic but most likely this is metabolic from hypoglycemia. Will re-check in one hour and confirm this is improving. FSBG recheck ordered. On reassessment patient also has wet-sounding cough, states has had for a few days, CXR will be ordered. 04/20/18 17:10 Repeat FSBG measured to be 42; another amp of D25 ordered. Q1h FSBG order placed. ADMIT The Pt is unsafe for discharge at this time. They require further hospital observation, workup, and treatment. Microblog sent to [facility] for admission. Blank Decision to Admit order placed. 04/20/18 17:[address] Yeung who is [facility]. In agreement patient to be admitted to Med/Surg Obs. Decision to Admit order placed to Dr. Yeung. 04/20/18 19:58 FSBG is 103 Repeat EKG to be ordered now that patient's HR has normalized. *DC/Admit/Observation/Transfer Diagnosis at time of Disposition: Hypoglycemia, Cough, Prolonged Q-T interval on ECG Syncope Qualifiers: Syncope type: unspecified Qualified Code(s): R55 - Syncope and collapse - Discharge Dispostion Condition at time of disposition: Guarded Decision to Admit order: Yes - Referrals - Patient Instructions - Post Discharge Activity
[2018-04-20 15:09] LABS: INR 1.16 (0.83-1.09); PROTHROMBIN TIME (PATIENT) 13.1 SEC (9.7-13.0)
[2018-04-20 15:40] LABS: ALBUMIN 3.6 g/dl (3.4-5.0); ANION GAP 11 MMOL/L (8-16); BLOOD UREA NITROGEN 17 mg/dL (7-18); CHLORIDE 104 mmol/L (98-107); CO2 25 mmol/L (21-32); GLUCOSE,RANDOM 218 mg/dL (74-106); SODIUM 140 mmol/L (136-145)
[2018-04-20 15:52] LABS: ALK PHOS 176 U/L (45-117); BILIRUBIN,TOTAL 0.5 mg/dL (0.2-1.0); CREATININE 0.9 mg/dL (0.55-1.02); SGPT/ALT 19 U/L (12-78); TOT PROT 8.1 g/dl (6.4-8.2)
[2018-04-20 15:56] LABS: POTASSIUM 3.2 mmol/L (3.5-5.1); SGOT/AST 24 U/L (15-37)
[2018-04-20] MEDS ORDERED: POTASSIUM CHLORIDE TABS 20 MEQ TABLET.ER (FP) PO ONE (16:09)
[2018-04-20] MEDS ORDERED: DEXTROSE 50%-WATER 25 GM/50 ML DISP.SYRIN ONE (16:59)
[2018-04-20] MEDS ORDERED: SODIUM CHLORIDE 0.9% 500 ML INFUS.BAG IV ONE (17:03)
[2018-04-20] MEDS ORDERED: POTASSIUM CHLORIDE TABS 10 MEQ TABLET.ER (FP) ONE (17:12)
[2018-04-20] MEDS ORDERED: HEMOQUE TEST 1 EACH EACH ONE (18:06)
[2018-04-20] MEDS ORDERED: DEXTROSE 50%-WATER - 25 GM/50 ML VIAL IVPUSH PRN (18:29)
[2018-04-20] MEDS: INSULIN SLIDING SCALE (NOVOLOG) 1 VIAL SQ SCH (18:36)
--- NOTE | 2018-04-20 18:39 | HP ---
CHIEF COMPLAINT: Hypoglycemia PCP: Dr. Winkler HISTORY OF PRESENT ILLNESS: Patient is a 58 year old female with a PMHx of HTN, IDDMII, CHF, HLD, Asthma who was BIBEMS from [facility] when she was at her husbands doctors appointment after her noticed her being diaphoretic and pale. THey checked her glucose level and it was found to be 42 with OJ given afterwards. Patient had altered mental status and was lethargic according to the ED staff. Upon my arrival patient was awake, alert and reports feeling much better as she recieved two amps of D50. Patient reports having two episodes in the last three weeks with a recent admission to [facility] for this reason. Further questioning revealed that patient has been taking Lantus and levemir as part of her normal regimen. Patient reports taking 70 units on lantus in the morning, which is her normal dose, and 2 units of levemir with breakfast asnd 1.5 units before lunch. However, prior to this hospitalization patient was taking 6 units of levemir before each meal. Patient also reports having poor appetite in the last couple of days after being discharged from [facility]. Otherwise, patient denies chest pain, palpitations, shortness of breath, fever, chills, nausea, vomiting, constipation, diarrhea, dysuria, hematuria. ER course was notable for: (1) Hypoglycemia with glucose levels in the 40's (2) Hypothermia but improved (3) Recent Travel: Denies PAST MEDICAL HISTORY: HTN, IDDMII, CHF, HLD, Asthma PAST SURGICAL HISTORY: Cholecystectomy Social History: SmokinPPD 30 + years. Quit last week. Alcohol: Denies Drugs: Denies Family History: Mother- HTN, HLD Father- DM Allergies: No Known Allergies Allergy (Verified 04/20/18 14:42) HOME MEDICATIONS: Home Medications Medication Instructions Recorded Albuterol 2.5/Ipratropium 0.5 1 neb NEB Q4H PRN #180 amp 05/03/17 [Duoneb -] Atorvastatin Ca [Lipitor] 10 mg PO HS #30 tab 05/03/17 Linaclotide [Linzess] 145 mcg PO DAILY #30 cap 05/03/17 Montelukast Na [Singulair -] 10 mg PO HS #30 tab 05/03/17 Spironolactone [Aldactone -] 25 mg PO DAILY #30 tablet 05/03/17 Ramipril [Altace] 2.5 mg PO DAILY #30 capsule 07/05/17 Esomeprazole Magnesium [Nexium 20 mg PO 04/20/18 24Hr] Furosemide [Lasix -] 40 mg PO DAILY 04/20/18 Insulin (Levemir) [Levemir Flexpen 80 units SQ DAILY 04/20/18 -] Linagliptin/Metformin HCl BID 04/20/18 [Jentadueto 2.5 mg-1000 mg Tab] Metoprolol Tartrate [Lopressor -] 50 mg PO DAILY 04/20/18 REVIEW OF SYSTEMS CONSTITUTIONAL: Absent: fever, chills, diaphoresis, generalized weakness, malaise, loss of appetite, weight change HEENT: Absent: rhinorrhea, nasal congestion, throat pain, throat swelling, difficulty swallowing, mouth swelling, ear pain, eye pain, visual changes CARDIOVASCULAR: Absent: chest pain, syncope, palpitations, irregular heart rate, lightheadedness , peripheral edema RESPIRATORY: Absent: cough, shortness of breath, dyspnea with exertion, orthopnea, wheezing, stridor, hemoptysis GASTROINTESTINAL: Absent: abdominal pain, abdominal distension, nausea, vomiting, diarrhea, constipation, melena, hematochezia GENITOURINARY: Absent: dysuria, frequency, urgency, hesitancy, hematuria, flank pain, genital pain MUSCULOSKELETAL: Absent: myalgia, arthralgia, joint swelling, back pain, neck pain SKIN: Absent: rash, itching, pallor HEMATOLOGIC/IMMUNOLOGIC: Absent: easy bleeding, easy bruising, lymphadenopathy, frequent infections ENDOCRINE: Absent: unexplained weight gain, unexplained weight loss, heat intolerance, cold intolerance NEUROLOGIC: dizziness, mental status changes Absent: headache, focal weakness or paresthesias, unsteady gait, seizure, bladder or bowel incontinence PSYCHIATRIC: Absent: anxiety, depression, suicidal or homicidal ideation, hallucinations. PHYSICAL EXAMINATION Vital Signs - 24 hr 04/20/18 04/20/18 04/20/18 14:05 14:56 15:10 Temperature 94.9 F L Pulse Rate 138 H Pulse Rate [ 78 108 H Apical] Respiratory 16 17 Rate Blood Pressure 160/106 Blood Pressure 133/75 [Right Arm] O2 Sat by Pulse 95 95 Oximetry (%) 04/20/18 04/20/18 04/20/18 15:49 16:30 17:28 Temperature 98.0 F 96.8 F L 96.8 F L Pulse Rate Pulse Rate [ 87 92 H Apical] Respiratory 18 17 Rate Blood Pressure Blood Pressure 117/86 142/100 [Right Arm] O2 Sat by Pulse 96 95 Oximetry (%) 04/20/18 04/20/18 17:48 18:15 Temperature 97 F L 97.4 F L Pulse Rate Pulse Rate [ Apical] Respiratory Rate Blood Pressure Blood Pressure [Right Arm] O2 Sat by Pulse Oximetry (%) GENERAL: Awake, alert, and fully oriented, in no acute distress. HEAD: Normal with no signs of trauma. EYES: Pupils equal, round and reactive to light, extraocular movements intact, sclera anicteric, conjunctiva clear. No lid lag. EARS, NOSE, THROAT: Oropharynx clear without exudates. Moist mucous membranes. NECK: Normal range of motion, supple without lymphadenopathy, JVD, or masses. LUNGS: Breath sounds equal, clear to auscultation bilaterally. No wheezes, and no crackles. No accessory muscle use. HEART: Tachycardic and regular rhythm, normal S1 and S2 without murmur, rub or gallop. ABDOMEN: Soft, nontender, not distended, normoactive bowel sounds, no guarding, no rebound, no masses. No hepatomegaly or splenomegaly. MUSCULOSKELETAL: Normal range of motion at all joints. No bony deformities or tenderness. No CVA tenderness. UPPER EXTREMITIES: 2+ pulses, warm, well-perfused. No cyanosis. No clubbing. No peripheral edema. LOWER EXTREMITIES: 2+ pulses, warm, well-perfused. No calf tenderness. No peripheral edema. NEUROLOGICAL: Cranial nerves II-XII intact. Normal speech. Normal gait. PSYCHIATRIC: Cooperative. Good eye contact. Appropriate mood and affect. SKIN: Warm, dry, normal turgor, no rashes or lesions noted, normal capillary refill. Laboratory Results - last 24 hr CBC, BMP 04/20/18 14:28 04/20/18 14:28 04/20/18 04/20/18 04/20/18 14:28 14:28 17:20 INR 1.16 H Lactic Acid 1.8 Alkaline Phosphatase 176 H TSH 0.81 IMAGES Chest X-Ray (04/20/18): Interval worsening pulmonary venous congestion. Cannot rule out superimposed infiltrates. ASSESSMENT/PLAN: Patient is a 58 year old female who was BIBEMS for diaphoresis, lethargy, AMS and was found to have hypoglycemia. Patient admitted for further monitoring and management/ Hypoglycemia -Likely medication induced -Patient reports taking Lantus and Levemir with oral medications -ISS Q6H -BGM Q6H -D50 PRN -Asked daughter to bring vials from home Hypothermia -Likely secondary to hypoglycemia -Was on a damir hugger but now improved -Continue to monitor vitals Hypokalemia -Potassium cloride 40meq given in ed -IV Fluids NS with KCl ordered -Check magnesium -Monitor BMP Polycythemia -Secondary to dehydration -IV NS ordered -Monitor CBC CHF -No signs of fluid overload -Continue Metoprolol HTN -Continue Metoprolol HLD -Lipitor 10mg HS Asthma -Albuterol PRN Prophylaxis -Heparin 5000 units Sq TID -No Gi required F/E/N -IV NS @83mls/hr -Hypokalemia. Replete and repeat -Sodium controlled diet Disposition -Full code -Frequent glucose checks Case Discussed with Attending, Dr. Yeung. Laly Todd [id number] Visit type - Emergency Visit Emergency Visit: Yes ED Registration Date: 04/20/18 Care time: The patient presented to the Emergency Department on the above date and was hospitalized for further evaluation of their emergent condition. - New Patient This patient is new to me today: Yes Date on this admission: 04/20/18 - Critical Care Critical Care patient: No Hospitalist Screening - Colonoscopy Questionnaire Colonoscopy Questionnaire: Colonoscopy Questionnaire - Patient: 50 - 75 years old and never had a screening colonoscopy: No History of colon or rectal polyps, or CA: No History of IBD, Crohn's disease or UC: No History of abdominal radiation therapy as a child: No - Relative: 1 with colon or rectal CA, or polyps at age 60 or younger: No Colon or rectal CA diagnosed at age 45 or younger: No Multiple relatives with colon or rectal CA: No - Outcome: Screening Result: Negative Screen
--- NOTE | 2018-04-20 18:40 | PN ---
Teaching Attending Note Name of Resident: Laly Todd ATTENDING PHYSICIAN STATEMENT I saw and evaluated the patient. I reviewed the resident's note and discussed the case with the resident. I agree with the resident's findings and plan as documented. SUBJECTIVE:58yo F sent to the ER from [facility] when she was there with her for his doctors appointment and she became faint and diaphoretic. her sugar was checked and was noted to be 42. she was given OJ and brought to ER. on arrival she had barely any mental status and was given d50 nad slowly improved. Sugar on repeat was noted to be 200's. pt was monitored and prior to discharge sugar was repeat at 1700 to be 42. an additional amp ws given. Pt states she took lantus 70units this morning (her normal dose) and levemir 2 units with breakfast but ate very little and then 1.5 units around lunch time around the time of the incident. Pt was recently hospitalized at [facility] for PNA and had several episodes of hypoglycemia there. she states she was previously taking levemir 12 units prior to each meal and was discharged and told to take only 6 units prior to each meal. as per daughter she has been eating less lately due to poor appetite. currently patient is asymptomatic. dneies Cp, SOB, fever, chills, dizzyness, lightheadedness, N/V/C/D, OBJECTIVE: Last Vital Signs Temp Pulse Resp BP Pulse Ox 97.4 F L 92 H 17 142/100 95 04/20/18 18:15 04/20/18 17:28 04/20/18 17:28 04/20/18 17:28 04/20/18 17:28 General NAD CV S1 S2 RRR no murmur/rub/gallop Lungs CTA B/L no wheezing/rale/rhonchi Abdomen soft NT/ND Extremities no pedal edema ASSESSMENT AND PLAN: 58yo F with PMH DM, CHF presented to the ER with decreased mental status assoc with hypoglycemia which is now improving 1. Hypoglycemia- high concern for overmedication and confusion. Pt is on 2 separate long acting insulins and taking them 5x/day. in addition to oral hypoglycemics. possible her medication was changed at recent hospitalization and pt was confused. will hold all insulin at this time. check BGM Q6H. give d50 as needed. frequent neurochecks and instructed patient to inform RN if developing any symptoms of hypoglycemia. will call pharmacy to med rec and verify medications. requested daughter to bring medications wiht her to the hospital in the morning 2. Hypothermia- likely due to hypoglycemia. was on damir hugger. now improving. cont to monitor with frequent vitals 3. Hypokalemia- Kcl po. check mg 4. polycythemia- likely dehydration. will give IVF and monitor 5. CHF- no signs of volume overload. cont lopressor. hold lasix and aldactone 6. DVT ppx- EAM 7. spoke with daughter present at bedside. discussed plan in detail. verbalized understanding of plan. will bring home medications tomorrow.
[2018-04-20] MEDS ORDERED: SODIUM CHLORIDE 1,000 ML with POTASSIUM CHLORIDE 40 MEQ IVPB SCH (18:45)
[2018-04-20] MEDS ORDERED: POTASSIUM CHLORIDE 40 MEQ in SODIUM CHLORIDE 1,000 ML IVPB SCH (22:11)
[2018-04-20] MEDS: ATORVASTATIN CA 10 MG TABLET (FP) PO SCH (23:02)
[2018-04-20] MEDS: MONTELUKAST NA 10 MG TABLET PO SCH (23:02)
[2018-04-21] MEDS: INSULIN SLIDING SCALE (NOVOLOG) 1 VIAL SQ SCH ×5 (01:21→22:17)
[2018-04-21] MEDS: HEPARIN NA (PORCINE) 5,000 UNITS/ML 1ML VIAL SQ SCH ×3 (02:57→17:23)
[2018-04-21 07:10] LABS: HEMATOCRIT 48.9 % (32.4-45.2); HEMOGLOBIN 15.7 GM/dL (10.7-15.3); MCH 28.8 pg (25.7-33.7); MCHC 32.2 g/dl (32.0-36.0); MEAN CELL VOLUME 89.5 fl (80-96); MEAN PLT VOLUME 8.1 fl (7.5-11.1); PLATELET COUNT 283 K/MM3 (134-434); RBC 5.46 M/mm3 (3.60-5.2); RDW 16.4 % (11.6-15.6); WHITE BLOOD COUNT 5.8 K/mm3 (4.0-10.0)
[2018-04-21 07:34] LABS: CHLORIDE 106 mmol/L (98-107); POTASSIUM 4.7 mmol/L (3.5-5.1); SODIUM 139 mmol/L (136-145)
[2018-04-21 07:40] LABS: ANION GAP 8 MMOL/L (8-16); BLOOD UREA NITROGEN 17 mg/dL (7-18); CALCIUM 8.9 mg/dL (8.5-10.1); CO2 25 mmol/L (21-32); CREATININE 0.9 mg/dL (0.55-1.02); GLUCOSE,RANDOM 215 mg/dL (74-106); MAGNESIUM 1.7 mg/dL (1.8-2.4); PHOSPHOROUS 3.7 mg/dL (2.5-4.9)
[2018-04-21] MEDS: METOPROLOL TARTRATE 50 MG TABLET (FP) PO SCH (09:50)
--- NOTE | 2018-04-21 11:58 | PN ---
Progress Note, Physician History of Present Illness: Patient is a 58 year old female who was BIBEMS for diaphoresis, lethargy, AMS and was found to have hypoglycemia. Patient admitted for further monitoring and management/ - Current Medication List Current Medications: Active Medications Albuterol/Ipratropium (Duoneb -) 1 amp NEB Q4H PRN PRN Reason: ASTHMA Atorvastatin Calcium (Lipitor -) 10 mg PO HS [facility] Last Admin: 04/20/18 23:02 Dose: 10 mg Dextrose (D50w (Vial) -) 25 gm IVPUSH PRN PRN PRN Reason: hypoglycemia Heparin Sodium (Porcine) (Heparin -) 5,000 unit SQ Q8H-IV [facility] Last Admin: 04/21/18 09:50 Dose: 5,000 unit Insulin Aspart (Novolog Vial Sliding Scale -) 1 vial SQ Q6H [facility]; Protocol Last Admin: 04/21/18 11:34 Dose: 4 units Metoprolol Tartrate (Lopressor -) 50 mg PO DAILY [facility] Last Admin: 04/21/18 09:50 Dose: 50 mg Montelukast Sodium (Singulair -) 10 mg PO [facility] Last Admin: 04/20/18 23:02 Dose: 10 mg - Objective Vital Signs: Vital Signs Temperature 98.3 F 04/21/18 06:00 Pulse Rate 102 H 04/21/18 06:00 Respiratory Rate 18 04/21/18 06:00 Blood Pressure 137/96 04/21/18 06:00 O2 Sat by Pulse Oximetry (%) 95 04/20/18 22:00 Cardiovascular: Yes: Regular Rate and Rhythm Respiratory: Yes: Rales, Rhonchi Gastrointestinal: Yes: Normal Bowel Sounds, Soft Edema: No Neurological: Yes: Alert, Oriented Labs: CBC, BMP 04/21/18 06:30 04/21/18 06:30 INR, PTT INR 1.16 (0.83-1.09) H 04/20/18 14:28 Problem List - Problems (1) Hypoglycemia Assessment/Plan: -Likely medication induced -Patient reports taking Lantus and Levemir with oral medications -ISS Q6H -BGM Q6H -D50 PRN -Endo Consult Code(s): E16.2 - HYPOGLYCEMIA, UNSPECIFIED (2) CHF (congestive heart failure) Assessment/Plan: -Ct chest -BNP -Lasix Code(s): I50.9 - HEART FAILURE, UNSPECIFIED (3) Diabetes Assessment/Plan: -As above Code(s): E11.9 - TYPE 2 DIABETES MELLITUS WITHOUT COMPLICATIONS Qualifiers: Diabetes mellitus type: type 1 Diabetes mellitus complication status: with hyperglycemia Qualified Code(s): E10.65 - Type 1 diabetes mellitus with hyperglycemia (4) HTN (hypertension) Assessment/Plan: -Metoprolol Code(s): I10 - ESSENTIAL (PRIMARY) HYPERTENSION Qualifiers: Hypertension type: essential hypertension Qualified Code(s): I10 - Essential (primary) hypertension (5) Mediastinal adenopathy Assessment/Plan: -CT chest Code(s): R59.0 - LOCALIZED ENLARGED LYMPH NODES
--- NOTE | 2018-04-21 12:58 | CON.CARD ---
Consult Consult Specialty:: Cardiology Referred by:: jose a cifuentes Reason for Consultation:: CHF - History of Present Illness Chief Complaint: hypoglycemia History of Present Illness: 58 year old female with a PMHx of HTN, IDDMII, HLD, Asthma, and nonischemic CM with LVEF 25% and severe MR on recent echo in March with history of cath in 2016 with normal coronaries who was BIBEMS from [facility] when she was at her husbands doctors appointment after her noticed her being diaphoretic and pale. THy checked her glucose level and it was found to be 42 with OJ given afterwards. Patient had altered mental status and was lethargic according to the ED staff. Currently, patient says she feels fine. Denies any chest pain or sob. No pnd, orthopnea, or edema. No syncope. Has had these episodes prior and admitted to [facility] for similar hypoglycemic episode. Poor appetite CXR: venous congestion and cannot r/o superimposed infiltrate. - History Source History Provided By: Patient, Medical Record - Past Medical History Cardio/Vascular: Yes: HTN, Hyperlipdemia, Other. No: AFIB, CAD Pulmonary: Yes: Asthma, COPD. No: Pulmonary Embolus Gastrointestinal: Yes: GERD. No: Cancer Endocrine: Yes: Diabetes Mellitus - Alcohol/Substance Use Hx Alcohol Use: No - Smoking History Smoking history: Never smoked Have you smoked in the past 12 months: Yes Aproximately how many cigarettes per day: 6 If you are a former smoker, when did you quit?: 1 month ago - Social History Usual Living Arrangement: Alone Home Medications - Allergies Allergies/Adverse Reactions: Allergies Allergy/AdvReac Type Severity Reaction Status Date / Time No Known Allergies Allergy Verified 04/20/18 14:42 - Home Medications Home Medications: Ambulatory Orders Albuterol 2.5/Ipratropium 0.5 [Duoneb -] 1 neb NEB Q4H PRN #180 amp 05/03/17 Atorvastatin Ca [Lipitor] 10 mg PO HS #30 tab 05/03/17 Linaclotide [Linzess] 145 mcg PO DAILY #30 cap 05/03/17 Montelukast Na [Singulair -] 10 mg PO HS #30 tab 05/03/17 Esomeprazole Magnesium [Nexium 24Hr] 20 mg PO 04/20/18 Insulin (Levemir) [Levemir Flexpen -] 70 units SQ DAILY 04/20/18 Insulin Lispro [Humalog] 6 unit SQ TID 04/20/18 Linagliptin/Metformin HCl [Jentadueto 2.5 mg-1000 mg Tab] BID 04/20/18 Metoprolol Tartrate [Lopressor -] 50 mg PO DAILY 04/20/18 Vital Signs: Vital Signs Temperature 98.3 F 04/21/18 06:00 Pulse Rate 102 H 04/21/18 06:00 Respiratory Rate 18 04/21/18 06:00 Blood Pressure 137/96 04/21/18 06:00 O2 Sat by Pulse Oximetry (%) 95 04/20/18 22:00 Constitutional: Yes: No Distress Neck: Yes: Supple Respiratory: Yes: CTA Bilaterally Gastrointestinal: Yes: Soft Cardiovascular: Yes: Regular Rate and Rhythm JVD: No Carotid Bruit: No PMI: Non-Displaced Heart Sounds: Yes: S1, S2 Murmur: Yes: Systolic Murmur Extremities: Yes: WNL Edema: No - Other Data Labs, Other Data: CBC, BMP 04/21/18 06:30 04/21/18 06:30 INR, PTT INR 1.16 (0.83-1.09) H 04/20/18 14:28 Troponin, BNP 04/20/18 14:28 Troponin I 0.02 Troponin, BNP 04/20/18 14:28 Troponin I 0.02 Imaging - Results X-ray: Report Reviewed EKG: Image Reviewed Assessment/Plan 58 year old female with a PMHx of HTN, IDDMII, HLD, Asthma, and nonischemic CM with LVEF 25% and severe MR on recent echo in March with history of cath in 2016 with normal coronaries who was BIBEMS from [facility] when she was at her husbands doctors appointment after her noticed her being diaphoretic and pale. THy checked her glucose level and it was found to be 42 with OJ given afterwards. Patient had altered mental status and was lethargic according to the ED staff. Currently, patient says she feels fine. Denies any chest pain or sob. No pnd, orthopnea, or edema. No syncope. Has had these episodes prior and admitted to [facility] for similar hypoglycemic episode. Poor appetite CXR: venous congestion and cannot r/o superimposed infiltrate. 1) Nonischemic CHF -clarify what meds she was taking at home. Last week during hospital admission she was started on CHF regimen of carvedilol 3.125mg, valsartan, and spironolactone along with furosemide bid dosing. Would prefer patient to be on low dose beta elias, losartan, and spironolactone if bp tolerates -Had a cath one year ago which was normal - Would restart furosemide 40mg po bid Planned for CT chest -Repeat ekg as initial ekg yesterday HR 140 and read as sinus tachycardia. Could have been tachy in setting of hypoglycemia but but ekg is concerning for possible atrial tach so will plan for transfer to telemetry unit to evaluate with warp hanger. -Consider utox as was positive for cocaine last month.
[2018-04-21 13:26] LABS: N-TERMINAL BNP 1705.06 pg/ml (5-125)
[2018-04-21] MEDS: FUROSEMIDE 40 MG/4 ML INJECTABLE VIAL IVPUSH SCH (14:11)
--- NOTE | 2018-04-21 15:58 | CONSULT ---
Consult Consult Specialty:: Endocrinology for Dr Penaloza Referred by:: Dr Winkler Reason for Consultation:: Hypoglycemia - History of Present Illness Chief Complaint: AMS History of Present Illness: This is a 58 year old female with h/o HTN, DM since 2001, on Insulin from 2003 , CHF, HLD, Asthma who was BIBEMS from [facility] after her noticed her being diaphoretic and pale when she was for waiting for transport after her 's doctor's appointment . THey checked her glucose level and it was found to be 42 with OJ given afterwards. Patient had altered mental status and was lethargic according to the ED staff. Patient was awake, alert and reported feeling much better after she recieved two amps of D50. Patient reports having two episodes of hypoglycemia in the last three weeks with a recent admission to [facility] for this reason. Pt says her blood sugar was in 300s in the morning yesterday and took one and half ML of Levemir and 2 ML of Humalog. When shown Insulin syringe she said she was not using that type of syringe. When shown a regular 3 ML syringe she said that was the type she was using. Pt says she is supposed to take Levemir 70 units daily in the morning and Humalog 2 to 12 Units TID with meals. She has Insulin pens at home. Unclear how she has been taking the Insulin the other days. Has blurred vision. Saw Ophthalmology last month. Denies paresthesia of feet. No CP, SOB, Palpitations. No Abd pain, No NV. FS at home usually 200 to 300. - History Source History Provided By: Patient, Medical Record - Past Medical History Cardio/Vascular: Yes: HTN, Hyperlipdemia, Other. No: AFIB, CAD Pulmonary: Yes: Asthma, COPD. No: Pulmonary Embolus Gastrointestinal: Yes: GERD. No: Cancer Endocrine: Yes: Diabetes Mellitus - Alcohol/Substance Use Hx Alcohol Use: No - Smoking History Smoking history: Never smoked Have you smoked in the past 12 months: Yes Aproximately how many cigarettes per day: 6 If you are a former smoker, when did you quit?: 1 month ago - Social History Usual Living Arrangement: Alone Home Medications - Allergies Allergies/Adverse Reactions: Allergies Allergy/AdvReac Type Severity Reaction Status Date / Time No Known Allergies Allergy Verified 04/20/18 14:42 - Home Medications Home Medications: Ambulatory Orders Albuterol 2.5/Ipratropium 0.5 [Duoneb -] 1 neb NEB Q4H PRN #180 amp 05/03/17 Atorvastatin Ca [Lipitor] 10 mg PO HS #30 tab 05/03/17 Linaclotide [Linzess] 145 mcg PO DAILY #30 cap 05/03/17 Montelukast Na [Singulair -] 10 mg PO HS #30 tab 05/03/17 Esomeprazole Magnesium [Nexium 24Hr] 20 mg PO 04/20/18 Insulin (Levemir) [Levemir Flexpen -] 70 units SQ DAILY 04/20/18 Insulin Lispro [Humalog] 6 unit SQ TID 04/20/18 Linagliptin/Metformin HCl [Jentadueto 2.5 mg-1000 mg Tab] BID 04/20/18 Metoprolol Tartrate [Lopressor -] 50 mg PO DAILY 04/20/18 Family Disease History - Family Disease History Family Disease History: Diabetes: Father, Brother Review of Systems - Review of Systems Constitutional: reports: No Symptoms Eyes: reports: Blurred Vision HENT: reports: No Symptoms Neck: reports: No Symptoms Cardiovascular: reports: No Symptoms Respiratory: reports: No Symptoms Gastrointestinal: reports: No Symptoms Genitourinary: reports: No Symptoms Musculoskeletal: reports: No Symptoms Endocrine: reports: No Symptoms Hematology/Lymphatic: reports: No Symptoms Physical Exam Vital Signs: Vital Signs Temperature 98.3 F 04/21/18 06:00 Pulse Rate 102 H 04/21/18 06:00 Respiratory Rate 18 04/21/18 06:00 Blood Pressure 137/96 04/21/18 06:00 O2 Sat by Pulse Oximetry (%) 95 04/20/18 22:00 Constitutional: Yes: No Distress, Calm Eyes: Yes: Conjunctiva Clear, EOM Intact HENT: Yes: Atraumatic, Normocephalic Neck: Yes: Supple, Trachea Midline Cardiovascular: Yes: Regular Rate and Rhythm Respiratory: Yes: Regular, CTA Bilaterally Gastrointestinal: Yes: Normal Bowel Sounds, Soft Musculoskeletal: Yes: WNL Extremities: Yes: WNL Edema: No Integumentary: Yes: WNL Neurological: Yes: Alert, Oriented Labs: CBC, BMP 04/21/18 06:30 04/21/18 06:30 Imaging - Results Chest X-ray: Report Reviewed Cat Scan: Report Reviewed (Chest) Assessment/Plan AP: DM Hypoglycemia: Sec to overdose of Insulin. Seems to have taken 150 units of Levemir 200 units of Humalog Discussed need to take Insulin as presribed. Showed the Insulin syringe and a regular 3 ML syringe and explained the difference that one ML in the regular syringe is 100 units of Insulin Pt verbalizes understanding. Pt's to bring all Insulin and syringes she has at home to review and educate her on the use of the devices. BGM QACHS Novolog SS coverage Nutrition Consult Diabetes education Pericardial effusion/Pleural Effusion on CT Chest Mediastinal Lymphadenopathy HTN HLD Asthma
[2018-04-21] MEDS ORDERED: oxyCODONE HCL 5 MG TABLET PO ONE (21:28)
[2018-04-21] MEDS: ATORVASTATIN CA 10 MG TABLET (FP) PO SCH (22:07)
[2018-04-21] MEDS: MONTELUKAST NA 10 MG TABLET PO SCH (22:07)
[2018-04-21 22:47] LABS: URINE APPEARANCE CLEAR; URINE BILIRUBIN NEGATIVE (<2.0 mg/dL); URINE COLOR LTYELLOW; URINE GLUCOSE (UA) 3+ (NEGATIVE); URINE KETONE NEGATIVE (NEGATIVE); URINE LEUK ESTERASE NEGATIVE (NEGATIVE); URINE NITRITE NEGATIVE (NEGATIVE); URINE UROBILINOGEN NEGATIVE mg/dL (0.2-1.0)
[2018-04-21 22:57] LABS: URINE PROTEIN 1+ (NEGATIVE)
[2018-04-21 22:58] LABS: EPI CELLS RARE /HPF (FEW); URINE HYALINE CAST 17 /lpf; URINE MUCUS RARE
[2018-04-22 01:13] LABS: MAGNESIUM 1.9 mg/dL (1.8-2.4); POTASSIUM 4.3 mmol/L (3.5-5.1)
[2018-04-22] MEDS: HEPARIN NA (PORCINE) 5,000 UNITS/ML 1ML VIAL SQ SCH ×4 (01:41→22:00)
[2018-04-22] MEDS: INSULIN SLIDING SCALE (NOVOLOG) 1 VIAL SQ SCH ×4 (06:26→21:29)
[2018-04-22 06:56] LABS: BASO % 1.3 % (0-2.0); EOS % 2.8 % (0-4.5); HEMATOCRIT 48.5 % (32.4-45.2); HEMOGLOBIN 15.5 GM/dL (10.7-15.3); LYMPH % 40.8 % (8-40); MCH 28.6 pg (25.7-33.7); MCHC 31.9 g/dl (32.0-36.0); MEAN CELL VOLUME 89.5 fl (80-96); MEAN PLT VOLUME 8.3 fl (7.5-11.1); MONO % 13.3 % (3.8-10.2); NEUT % 41.8 % (42.8-82.8); PLATELET COUNT 281 K/MM3 (134-434); RBC 5.43 M/mm3 (3.60-5.2); RDW 16.2 % (11.6-15.6); WHITE BLOOD COUNT 4.8 K/mm3 (4.0-10.0)
[2018-04-22 07:35] LABS: ALBUMIN 3.1 g/dl (3.4-5.0); ALK PHOS 158 U/L (45-117); ANION GAP 6 MMOL/L (8-16); BILIRUBIN,TOTAL 0.5 mg/dL (0.2-1.0); BLOOD UREA NITROGEN 28 mg/dL (7-18); CALCIUM 8.6 mg/dL (8.5-10.1); CHLORIDE 104 mmol/L (98-107); CO2 27 mmol/L (21-32); CREATININE 1.3 mg/dL (0.55-1.02); GLUCOSE,RANDOM 227 mg/dL (74-106); POTASSIUM 4.4 mmol/L (3.5-5.1); SGOT/AST 18 U/L (15-37); SGPT/ALT 18 U/L (12-78); SODIUM 137 mmol/L (136-145)
[2018-04-22] MEDS: FUROSEMIDE 40 MG/4 ML INJECTABLE VIAL IVPUSH SCH (09:29)
[2018-04-22] MEDS: METOPROLOL TARTRATE 50 MG TABLET (FP) PO SCH (09:30)
[2018-04-22] MEDS: ALBUTEROL SO4 2.5/IPRATROPIUM 0.5 INH SOL 3 ML VIAL.NEB. NEB PRN ×2 (10:27→21:40)
--- NOTE | 2018-04-22 11:26 | CON.PULM ---
Consult - History of Present Illness History of Present Illness: This 58 female with h/o insulin-dependent type II DM who was BIBEMS for syncope and subsequent altered mental status onset at the [facility] clinic across the street, while she was at an appointment. EMS found her very confused , minimally responsive, diaphoretic. 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 On initial history, the patient is unable to provide any relevant history or symptoms 2/2 decreased responsivenes/obtundation. The notes that she has been taking her insulin as per usual. The daughter notes that a similar incident happened 2 days ago for which the patient was seen at [facility], and discharged without any abnormalities found on workup other than hypoglycemia. Also h/o COPD for which she takes bronchodilators at home. 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 No: AFIB, CAD Pulmonary: Yes: Asthma, COPD. No: O2 Dependent, Pneumonia, Pulmonary Embolus, Pulmonary Fibrosis, Sleep Apnea Gastrointestinal: Yes: GERD. No: Cancer Hepatobiliary: No: Cirrhosis Renal/: Yes: Renal Inusuff Reproductive: Yes: Postmenopausal ...: No Heme/Onc: No: Anemia Psych: No: Addictions Musculoskeletal: No: Chronic low back pain Rheumatology: No: Fibromyalgia ENT: No: Allergic Rhinitis Endocrine: Yes: Diabetes Mellitus - Alcohol/Substance Use Hx Alcohol Use: No - Smoking History Smoking history: Never smoked Have you smoked in the past 12 months: Yes Aproximately how many cigarettes per day: 6 If you are a former smoker, when did you quit?: 1 month ago - Social History Usual Living Arrangement: With Spouse ADL: Independent Place of : Other History of Recent Travel: No Home Medications - Allergies Allergies/Adverse Reactions: Allergies Allergy/AdvReac Type Severity Reaction Status Date / Time No Known Allergies Allergy Verified 04/20/18 14:42 - Home Medications Home Medications: Ambulatory Orders Albuterol 2.5/Ipratropium 0.5 [Duoneb -] 1 neb NEB Q4H PRN #180 amp 05/03/17 Atorvastatin Ca [Lipitor] 10 mg PO HS #30 tab 05/03/17 Linaclotide [Linzess] 145 mcg PO DAILY #30 cap 05/03/17 Montelukast Na [Singulair -] 10 mg PO HS #30 tab 05/03/17 Esomeprazole Magnesium [Nexium 24Hr] 20 mg PO 04/20/18 Insulin (Levemir) [Levemir Flexpen -] 70 units SQ DAILY 04/20/18 Insulin Lispro [Humalog] 6 unit SQ TID 04/20/18 Linagliptin/Metformin HCl [Jentadueto 2.5 mg-1000 mg Tab] BID 04/20/18 Metoprolol Tartrate [Lopressor -] 50 mg PO DAILY 04/20/18 Family Disease History - Family Disease History Family Disease History: Diabetes: Father, Brother Review of Systems - Review of Systems Constitutional: reports: Lethargy. denies: Fever Eyes: reports: Blurred Vision HENT: denies: Difficult Swallowing Neck: denies: Decreased ROM Cardiovascular: denies: Chest Pain Respiratory: reports: SOB on Exertion. denies: Cough, Hemoptysis, Orthopnea, Wheezing Gastrointestinal: denies: Abdominal Pain Genitourinary: denies: Burning Breasts: reports: No Symptoms Reported Musculoskeletal: reports: No Symptoms Integumentary: reports: No Symptoms Endocrine: reports: Excessive Sweating Physical Exam Vital Sings: Vital Signs Temperature 98.1 F 04/22/18 05:56 Pulse Rate 82 04/22/18 05:56 Respiratory Rate 18 04/22/18 10:00 Blood Pressure 120/94 04/22/18 05:56 O2 Sat by Pulse Oximetry (%) 95 04/22/18 10:00 Constitutional: Yes: Calm Eyes: Yes: EOM Intact HENT: Yes: Normocephalic Neck: Yes: Trachea Midline Cardiovascular: Yes: S1, S2 Respiratory: Yes: Diminished Gastrointestinal: Yes: Normal Bowel Sounds Edema: No Labs: CBC, BMP 04/22/18 06:00 04/22/18 05:30 Imaging - Results Chest X-ray: Report Reviewed, Image Reviewed Cat Scan: Report Reviewed, Image Reviewed Problem List - Problems (1) Hypoglycemia Code(s): E16.2 - HYPOGLYCEMIA, UNSPECIFIED (2) COPD exacerbation Code(s): J44.1 - CHRONIC OBSTRUCTIVE PULMONARY DISEASE W (ACUTE) EXACERBATION (3) Diabetes 1.5, managed as type 1 Code(s): E10.9 - TYPE 1 DIABETES MELLITUS WITHOUT COMPLICATIONS Assessment/Plan HYPOGLYCEMIC EPISODE HAS RESOLVED RESPIRATORY STATUS STABLE RECEIVING NEBS PRN ON A BETA SELECTIVE LYDIA WHICH IS OK WITH COPD/BRONCHOSPASM NO OBJECTION TO CONTINUING TREATMENT AN OUTPATIENT Cassandra BUENO MD
--- NOTE | 2018-04-22 12:19 | PN ---
Progress Note (short form) - Note Progress Note: Feels good Denies any complaints Vital Signs Period Temp Pulse Resp BP Sys/Plasencia Pulse Ox Last 24 Hr 97.5 F-98.4 F 78-92 18-29 101-120/75-100 94-95 PE: AOx3 Neck: Supple, No JVD HEENT: PERRL, EOMI Lungs: CTA CVS: S1S2 Abd: Benign Ext: No edema Neuro: No focal deficit CMP Sodium 137 mmol/L (136-145) 04/22/18 05:30 Potassium 4.4 mmol/L (3.5-5.1) 04/22/18 05:30 Chloride 104 mmol/L (98-107) 04/22/18 05:30 Carbon Dioxide 27 mmol/L (21-32) 04/22/18 05:30 Anion Gap 6 MMOL/L (8-16) L 04/22/18 05:30 BUN 28 mg/dL (7-18) H 04/22/18 05:30 Creatinine 1.3 mg/dL (0.55-1.02) H 04/22/18 05:30 Creat Clearance w eGFR 42.22 (>60) 04/22/18 05:30 POC Glucometer 227 UNITS (80-120) 04/22/18 11:27 Random Glucose 227 mg/dL (74-106) H 04/22/18 05:30 Hemoglobin A1c % 8.6 % (4.8-6.0) H 04/21/18 12:40 Lactic Acid 1.4 mmol/L (0.0-2.0) 04/20/18 21:10 Calcium 8.6 mg/dL (8.5-10.1) 04/22/18 05:30 Phosphorus 3.7 mg/dL (2.5-4.9) 04/21/18 06:30 Magnesium 2.0 mg/dL (1.8-2.4) 04/22/18 05:30 Total Bilirubin 0.5 mg/dL (0.2-1.0) 04/22/18 05:30 AST 18 U/L (15-37) 04/22/18 05:30 ALT 18 U/L (12-78) 04/22/18 05:30 Alkaline Phosphatase 158 U/L (45-117) H D 04/22/18 05:30 Creatine Kinase 66 IU/L (26-192) 04/21/18 12:40 Troponin I 0.04 ng/ml (0.00-0.05) 04/21/18 12:40 B-Natriuretic Peptide 1705.06 pg/ml (5-125) H 04/21/18 12:40 Total Protein 7.0 g/dl (6.4-8.2) 04/22/18 05:30 Albumin 3.1 g/dl (3.4-5.0) L 04/22/18 05:30 TSH 0.81 uIU/ml (0.358-3.74) 04/20/18 14:28 Current Medications Generic Name Dose Route Start Last Admin Trade Name Freq PRN Reason Stop Dose Admin Albuterol/Ipratropium 1 amp 04/20/18 18:37 04/22/18 10:27 Duoneb - NEB 1 amp Q4H PRN Administration ASTHMA Atorvastatin Calcium 10 mg 04/20/18 22:00 04/21/18 22:07 Lipitor - PO 10 mg HS LETA Administration Dextrose 25 gm 04/20/18 18:29 D50w (Vial) - IVPUSH PRN PRN hypoglycemia Furosemide 40 mg 04/21/18 12:00 04/22/18 09:29 Lasix Injection - IVPUSH 40 mg DAILY LETA Administration Heparin Sodium (Porcine) 5,000 unit 04/21/18 02:00 04/22/18 01:41 Heparin - SQ 5,000 unit Q8H-IV LETA Administration Insulin Aspart 1 vial 04/21/18 22:00 04/21/18 22:17 Novolog Vial Sliding Scale - SQ 2 unit HS LETA Administration Protocol Insulin Aspart 1 vial 04/21/18 16:30 04/22/18 06:26 Novolog Vial Sliding Scale - SQ 4 units TIDAC LETA Administration Protocol Metoprolol Tartrate 50 mg 04/21/18 10:00 04/22/18 09:30 Lopressor - PO 50 mg DAILY LETA Administration Montelukast Sodium 10 mg 04/20/18 22:00 04/21/18 22:07 Singulair - PO 10 mg HS LETA Administration Oxycodone HCl 10 mg 04/22/18 10:55 Roxicodone - PO Q6H PRN PAIN LEVEL 6-10 AP: DM Hypoglycemia: Sec to overdose of Insulin. Seems to have taken 150 units of Levemir 200 units of Humalog Discussed need to take Insulin as presribed. Pt brought the syringe she was using at home to take and it was a 3ML syringe as per RN who saw it. Discussed with patient need to take Insulin from the Pen as directed using a pentip needle. Demonstrated how it should be done. Pt verbalizes understanding. BGM QACHS Novolog SS coverage Start Levemir 15 units daily. First dose stat. Nutrition Consult Diabetes education Pt to be discharged home on this dose with adjustments to be made outpatient as necessary. Pericardial effusion/Pleural Effusion on CT Chest Mediastinal Lymphadenopathy HTN HLD Asthma
[2018-04-22] MEDS ORDERED: INSULIN (LEVEMIR) 100 UNITS/ML UNITS SQ ONE ×2 (12:20→16:33)
--- NOTE | 2018-04-22 13:41 | PN ---
Progress Note, Physician History of Present Illness: Patient is a 58 year old female who was BIBEMS for diaphoresis, lethargy, AMS and was found to have hypoglycemia. Patient admitted for further monitoring and management/ - Current Medication List Current Medications: Active Medications Albuterol/Ipratropium (Duoneb -) 1 amp NEB Q4H PRN PRN Reason: ASTHMA Last Admin: 04/22/18 10:27 Dose: 1 amp Atorvastatin Calcium (Lipitor -) 10 mg PO HS [facility] Last Admin: 04/21/18 22:07 Dose: 10 mg Dextrose (D50w (Vial) -) 25 gm IVPUSH PRN PRN PRN Reason: hypoglycemia Furosemide (Lasix Injection -) 40 mg IVPUSH DAILY [facility] Last Admin: 04/22/18 09:29 Dose: 40 mg Heparin Sodium (Porcine) (Heparin -) 5,000 unit SQ Q8H-IV LETA Last Admin: 04/22/18 01:41 Dose: 5,000 unit Insulin Aspart (Novolog Vial Sliding Scale -) 1 vial SQ HS [facility]; Protocol Last Admin: 04/21/18 22:17 Dose: 2 unit Insulin Aspart (Novolog Vial Sliding Scale -) 1 vial SQ TIDAC [facility]; Protocol Last Admin: 04/22/18 12:17 Dose: 4 units Insulin Detemir (Levemir Vial) 15 units SQ ACBK [facility] Metoprolol Tartrate (Lopressor -) 50 mg PO DAILY [facility] Last Admin: 04/22/18 09:30 Dose: 50 mg Montelukast Sodium (Singulair -) 10 mg PO [facility] Last Admin: 04/21/18 22:07 Dose: 10 mg Oxycodone HCl (Roxicodone -) 10 mg PO Q6H PRN PRN Reason: PAIN LEVEL 6-10 - Objective Vital Signs: Vital Signs Temperature 98.1 F 04/22/18 05:56 Pulse Rate 82 04/22/18 05:56 Respiratory Rate 18 04/22/18 10:00 Blood Pressure 120/94 04/22/18 05:56 O2 Sat by Pulse Oximetry (%) 95 04/22/18 10:00 Cardiovascular: Yes: S1, S2 Respiratory: Yes: Regular, Rales Gastrointestinal: Yes: Normal Bowel Sounds, Soft Labs: CBC, BMP 04/22/18 06:00 04/22/18 05:30 INR, PTT INR 1.16 (0.83-1.09) H 04/20/18 14:28 Problem List - Problems (1) Hypoglycemia Assessment/Plan: Meds from home reviewed pt was using 3cc syringe to inject insulin dose was inappropriate==this qas discussed with pt and granddaughter -Likely medication induced -Patient reports taking Lantus and Levemir with oral medications -ISS Q6H -BGM Q6H -D50 PRN -Endo Consult Code(s): E16.2 - HYPOGLYCEMIA, UNSPECIFIED (2) CHF (congestive heart failure) Assessment/Plan: -Ct chest -BNP -Lasix Code(s): I50.9 - HEART FAILURE, UNSPECIFIED (3) Diabetes Assessment/Plan: -As above Code(s): E11.9 - TYPE 2 DIABETES MELLITUS WITHOUT COMPLICATIONS Qualifiers: Diabetes mellitus type: type 1 Diabetes mellitus complication status: with hyperglycemia Qualified Code(s): E10.65 - Type 1 diabetes mellitus with hyperglycemia (4) HTN (hypertension) Assessment/Plan: -Metoprolol Code(s): I10 - ESSENTIAL (PRIMARY) HYPERTENSION Qualifiers: Hypertension type: essential hypertension Qualified Code(s): I10 - Essential (primary) hypertension (5) Mediastinal adenopathy Assessment/Plan: -CT chest noted--pulm on board Code(s): R59.0 - LOCALIZED ENLARGED LYMPH NODES
--- NOTE | 2018-04-22 16:01 | PN ---
Progress Note, Physician Chief Complaint: No chest pain or sob Sinus on tele with brief nsvt History of Present Illness: 58 year old female with a PMHx of HTN, IDDMII, HLD, Asthma, and nonischemic CM with LVEF 25% and severe MR on recent echo in March with history of cath in 2017 with normal coronaries who was BIBEMS from [facility] when she was at her husbands doctors appointment after her noticed her being diaphoretic and pale. THy checked her glucose level and it was found to be 42 with OJ given afterwards. Patient had altered mental status and was lethargic according to the ED staff. Currently, patient says she feels fine. Denies any chest pain or sob. No pnd, orthopnea, or edema. No syncope. Has had these episodes prior and admitted to [facility] for similar hypoglycemic episode. Poor appetite CXR: venous congestion and cannot r/o superimposed infiltrate. - Current Medication List Current Medications: Active Medications Albuterol/Ipratropium (Duoneb -) 1 amp NEB Q4H PRN PRN Reason: ASTHMA Last Admin: 04/22/18 10:27 Dose: 1 amp Atorvastatin Calcium (Lipitor -) 10 mg PO HS [facility] Last Admin: 04/21/18 22:07 Dose: 10 mg Dextrose (D50w (Vial) -) 25 gm IVPUSH PRN PRN PRN Reason: hypoglycemia Furosemide (Lasix Injection -) 40 mg IVPUSH DAILY [facility] Last Admin: 04/22/18 09:29 Dose: 40 mg Heparin Sodium (Porcine) (Heparin -) 5,000 unit SQ Q8H-IV [facility] Last Admin: 04/22/18 01:41 Dose: 5,000 unit Insulin Aspart (Novolog Vial Sliding Scale -) 1 vial SQ HS [facility]; Protocol Last Admin: 04/21/18 22:17 Dose: 2 unit Insulin Aspart (Novolog Vial Sliding Scale -) 1 vial SQ TIDAC [facility]; Protocol Last Admin: 04/22/18 12:17 Dose: 4 units Insulin Detemir (Levemir Vial) 15 units SQ ACBK [facility] Metoprolol Tartrate (Lopressor -) 50 mg PO DAILY [facility] Last Admin: 04/22/18 09:30 Dose: 50 mg Montelukast Sodium (Singulair -) 10 mg PO HS [facility] Last Admin: 04/21/18 22:07 Dose: 10 mg Oxycodone HCl (Roxicodone -) 10 mg PO Q6H PRN PRN Reason: PAIN LEVEL 6-10 - Objective Vital Signs: Vital Signs Temperature 98.2 F 04/22/18 14:00 Pulse Rate 82 04/22/18 14:00 Respiratory Rate 20 04/22/18 14:00 Blood Pressure 91/69 04/22/18 14:00 O2 Sat by Pulse Oximetry (%) 95 04/22/18 10:00 Constitutional: Yes: No Distress Cardiovascular: Yes: Regular Rate and Rhythm, Murmur (2/6 HSM apex), S1, S2. No : JVD Respiratory: Yes: CTA Bilaterally Gastrointestinal: Yes: Soft Edema: No Labs: CBC, BMP 04/22/18 06:00 04/22/18 05:30 INR, PTT INR 1.16 (0.83-1.09) H 04/20/18 14:28 Assessment/Plan 58 year old female with a PMHx of HTN, IDDMII, HLD, Asthma, and nonischemic CM with LVEF 25% and severe MR on recent echo in March with history of cath in 2016 with normal coronaries who was BIBEMS from [facility] when she was at her husbands doctors appointment after her noticed her being diaphoretic and pale. THy checked her glucose level and it was found to be 42 with OJ given afterwards. Patient had altered mental status and was lethargic according to the ED staff. Currently, patient says she feels fine. Denies any chest pain or sob. No pnd, orthopnea, or edema. No syncope. Has had these episodes prior and admitted to [facility] for similar hypoglycemic episode. Poor appetite CXR: venous congestion and cannot r/o superimposed infiltrate. 1) Nonischemic CHF -clarify what meds she was taking at home. Last week during hospital admission she was started on CHF regimen of carvedilol 3.125mg, valsartan, and spironolactone along with furosemide bid dosing. Would prefer patient to be on low dose beta elias, losartan, and spironolactone if bp tolerates. Today her bp on low side and only on lopressor. Would change to carvedilol 3.125mg and restart other CHF meds if tolerates -Had a cath one year ago which was normal - Can D/C IV furosemide and change to 40mg po bid as she was on at home F/u results of CT chest -Tele sinus with no significant arrhythmias but one brief nsvt -Substance abuse cessation Discussed diet. Eating fried chicken and box of oreos
[2018-04-22] MEDS: MONTELUKAST NA 10 MG TABLET PO SCH (21:28)
[2018-04-22] MEDS: ATORVASTATIN CA 10 MG TABLET (FP) PO SCH (21:29)
[2018-04-23] MEDS: oxyCODONE HCL 5 MG TABLET PO PRN ×2 (04:17→21:21)
[2018-04-23] MEDS: HEPARIN NA (PORCINE) 5,000 UNITS/ML 1ML VIAL SQ SCH ×3 (05:57→21:17)
[2018-04-23] MEDS: INSULIN SLIDING SCALE (NOVOLOG) 1 VIAL SQ SCH ×4 (06:00→21:17)
[2018-04-23] MEDS ORDERED: INSULIN (LEVEMIR) 100 UNITS/ML UNITS SQ SCH ×3 (07:00→15:48)
[2018-04-23] MEDS: METOPROLOL TARTRATE 50 MG TABLET (FP) PO SCH (09:14)
--- NOTE | 2018-04-23 10:09 | PN ---
Progress Note, Physician - Current Medication List Current Medications: Active Medications Albuterol/Ipratropium (Duoneb -) 1 amp NEB Q4H PRN PRN Reason: ASTHMA Last Admin: 04/22/18 21:40 Dose: 1 amp Atorvastatin Calcium (Lipitor -) 10 mg PO HS [facility] Last Admin: 04/22/18 21:29 Dose: 10 mg Dextrose (D50w (Vial) -) 25 gm IVPUSH PRN PRN PRN Reason: hypoglycemia Furosemide (Lasix -) 40 mg PO DAILY [facility] Heparin Sodium (Porcine) (Heparin -) 5,000 unit SQ TID [facility] Last Admin: 04/23/18 05:57 Dose: 5,000 unit Insulin Aspart (Novolog Vial Sliding Scale -) 1 vial SQ HS [facility]; Protocol Last Admin: 04/22/18 21:29 Dose: 4 unit Insulin Aspart (Novolog Vial Sliding Scale -) 1 vial SQ TIDAC [facility]; Protocol Last Admin: 04/23/18 06:00 Dose: 2 units Insulin Detemir (Levemir Vial) 25 units SQ ACBK [facility] Metoprolol Tartrate (Lopressor -) 50 mg PO DAILY [facility] Last Admin: 04/23/18 09:14 Dose: 50 mg Montelukast Sodium (Singulair -) 10 mg PO [facility] Last Admin: 04/22/18 21:28 Dose: 10 mg Oxycodone HCl (Roxicodone -) 10 mg PO Q6H PRN PRN Reason: PAIN LEVEL 6-10 Last Admin: 04/23/18 04:17 Dose: 10 mg - Objective Vital Signs: Vital Signs Temperature 98.9 F 04/23/18 01:16 Pulse Rate 84 04/23/18 01:16 Respiratory Rate 20 04/23/18 04:00 Blood Pressure 112/62 04/23/18 01:16 O2 Sat by Pulse Oximetry (%) 96 04/23/18 04:00 Cardiovascular: Yes: Regular Rate and Rhythm Respiratory: Yes: Regular, CTA Bilaterally Gastrointestinal: Yes: Normal Bowel Sounds, Soft Labs: CBC, BMP 04/22/18 06:00 04/22/18 05:30 INR, PTT INR 1.16 (0.83-1.09) H 04/20/18 14:28 Problem List - Problems (1) Hypoglycemia Assessment/Plan: Meds from home reviewed pt was using 3cc syringe to inject insulin dose was inappropriate==this qas discussed with pt and granddaughter -Likely medication induced -Patient reports taking Lantus and Levemir with oral medications -ISS Q6H -BGM Q6H -D50 PRN -Endo Consult noted Code(s): E16.2 - HYPOGLYCEMIA, UNSPECIFIED (2) CHF (congestive heart failure) Assessment/Plan: -Ct chest -BNP -Lasix to po Code(s): I50.9 - HEART FAILURE, UNSPECIFIED (3) Diabetes Assessment/Plan: -As above -Levemir started Code(s): E11.9 - TYPE 2 DIABETES MELLITUS WITHOUT COMPLICATIONS Qualifiers: Diabetes mellitus type: type 1 Diabetes mellitus complication status: with hyperglycemia Qualified Code(s): E10.65 - Type 1 diabetes mellitus with hyperglycemia (4) HTN (hypertension) Assessment/Plan: -Metoprolol Code(s): I10 - ESSENTIAL (PRIMARY) HYPERTENSION Qualifiers: Hypertension type: essential hypertension Qualified Code(s): I10 - Essential (primary) hypertension (5) Mediastinal adenopathy Assessment/Plan: -CT chest noted--pulm on board Code(s): R59.0 - LOCALIZED ENLARGED LYMPH NODES
--- NOTE | 2018-04-23 10:43 | EKG ---
Test Reason : Blood Pressure : / mmHG Vent. Rate : 086 BPM Atrial Rate : 086 BPM P-R Int : 186 ms QRS Dur : 090 ms QT Int : 420 ms P-R-T Axes : 034 147 072 degrees QTc Int : 502 ms NORMAL SINUS RHYTHM POSSIBLE LEFT ATRIAL ENLARGEMENT PROLONGED QT ABNORMAL ECG WHEN COMPARED WITH ECG OF 20-APR-2018 14:10, VENT. RATE HAS DECREASED Confirmed by DIAMANTE MANSFIELD, MARCUS ([id number]) on 04/23/2018 10:43:03 AM Referred By: Cedric SNYDER Confirmed By:MARCUS BOBBY MD
--- NOTE | 2018-04-23 11:16 | EKG ---
Test Reason : Blood Pressure : / mmHG Vent. Rate : 138 BPM Atrial Rate : 138 BPM P-R Int : 120 ms QRS Dur : 100 ms QT Int : 378 ms P-R-T Axes : 000 128 -02 degrees QTc Int : 572 ms SINUS TACHYCARDIA WITH PREMATURE SUPRAVENTRICULAR COMPLEXES RIGHT AXIS DEVIATION LOW VOLTAGE QRS INCOMPLETE RIGHT BUNDLE BRANCH BLOCK SEPTAL INFARCT (CITED ON OR BEFORE 29-AUG-2017) ABNORMAL ECG WHEN COMPARED WITH ECG OF 30-AUG-2017 09:03, PREMATURE VENTRICULAR COMPLEXES ARE NO LONGER PRESENT PREMATURE SUPRAVENTRICULAR COMPLEXES ARE NOW PRESENT VENT. RATE HAS INCREASED Confirmed by DIAMANTE MANSFIELD, MARCUS ([id number]) on 04/23/2018 11:15:49 AM Referred By: Confirmed By:MARCUS BOBBY MD
--- NOTE | 2018-04-23 11:31 | PN ---
Progress Note, Physician History of Present Illness: PULMONARY ,-SOB ALERT,NO DISTRESS - Current Medication List Current Medications: Active Medications Albuterol/Ipratropium (Duoneb -) 1 amp NEB Q4H PRN PRN Reason: ASTHMA Last Admin: 04/22/18 21:40 Dose: 1 amp Atorvastatin Calcium (Lipitor -) 10 mg PO HS [facility] Last Admin: 04/22/18 21:29 Dose: 10 mg Dextrose (D50w (Vial) -) 25 gm IVPUSH PRN PRN PRN Reason: hypoglycemia Furosemide (Lasix -) 40 mg PO DAILY [facility] Heparin Sodium (Porcine) (Heparin -) 5,000 unit SQ TID [facility] Last Admin: 04/23/18 05:57 Dose: 5,000 unit Insulin Aspart (Novolog Vial Sliding Scale -) 1 vial SQ HS [facility]; Protocol Last Admin: 04/22/18 21:29 Dose: 4 unit Insulin Aspart (Novolog Vial Sliding Scale -) 1 vial SQ TIDAC [facility]; Protocol Last Admin: 04/23/18 06:00 Dose: 2 units Insulin Detemir (Levemir Vial) 25 units SQ ACBK [facility] Metoprolol Tartrate (Lopressor -) 50 mg PO DAILY [facility] Last Admin: 04/23/18 09:14 Dose: 50 mg Montelukast Sodium (Singulair -) 10 mg PO [facility] Last Admin: 04/22/18 21:28 Dose: 10 mg Oxycodone HCl (Roxicodone -) 10 mg PO Q6H PRN PRN Reason: PAIN LEVEL 6-10 Last Admin: 04/23/18 04:17 Dose: 10 mg - Objective Vital Signs: Vital Signs Temperature 98.9 F 04/23/18 01:16 Pulse Rate 84 04/23/18 01:16 Respiratory Rate 20 04/23/18 04:00 Blood Pressure 112/62 04/23/18 01:16 O2 Sat by Pulse Oximetry (%) 96 04/23/18 04:00 Constitutional: Yes: Well Nourished, Calm Eyes: Yes: WNL HENT: Yes: WNL Neck: Yes: WNL Cardiovascular: Yes: Regular Rate and Rhythm, S1, S2 Respiratory: Yes: CTA Bilaterally Gastrointestinal: Yes: Normal Bowel Sounds, Soft Extremities: Yes: WNL Edema: No Labs: 04/22/18 06:00 Assessment/Plan Problem List - Problems (1) Hypoglycemia Code(s): E16.2 - HYPOGLYCEMIA, UNSPECIFIED (2) COPD exacerbation Code(s): J44.1 - CHRONIC OBSTRUCTIVE PULMONARY DISEASE W (ACUTE) EXACERBATION (3) Diabetes 1.5, managed as type 1 Code(s): E10.9 - TYPE 1 DIABETES MELLITUS WITHOUT COMPLICATIONS Assessment/Plan HYPOGLYCEMIC EPISODE HAS RESOLVED RESPIRATORY STATUS STABLE NEBS PRN ON A BETA SELECTIVE LYDIA WHICH IS OK WITH COPD/BRONCHOSPASM NO OBJECTION TO CONTINUING TREATMENT AN OUTPATIENT DR LOMELI
--- NOTE | 2018-04-23 11:51 | PN ---
Progress Note (short form) - Note Progress Note: Feels good Denies any complaints Vital Signs Period Temp Pulse Resp BP Sys/Plasencia Pulse Ox Last 24 Hr 97.6 F-98.9 F 72-84 20-20 91-113/59-69 95-98 PE: AOx3 Neck: Supple, No JVD HEENT: PERRL, EOMI Lungs: CTA CVS: S1S2 Abd: Benign Ext: No edema Neuro: No focal deficit CMP Sodium 137 mmol/L (136-145) 04/22/18 05:30 Potassium 4.4 mmol/L (3.5-5.1) 04/22/18 05:30 Chloride 104 mmol/L (98-107) 04/22/18 05:30 Carbon Dioxide 27 mmol/L (21-32) 04/22/18 05:30 Anion Gap 6 MMOL/L (8-16) L 04/22/18 05:30 BUN 28 mg/dL (7-18) H 04/22/18 05:30 Creatinine 1.3 mg/dL (0.55-1.02) H 04/22/18 05:30 Creat Clearance w eGFR 42.22 (>60) 04/22/18 05:30 POC Glucometer 171 UNITS (80-120) 04/23/18 05:15 Random Glucose 227 mg/dL (74-106) H 04/22/18 05:30 Hemoglobin A1c % 8.6 % (4.8-6.0) H 04/21/18 12:40 Lactic Acid 1.4 mmol/L (0.0-2.0) 04/20/18 21:10 Calcium 8.6 mg/dL (8.5-10.1) 04/22/18 05:30 Phosphorus 3.7 mg/dL (2.5-4.9) 04/21/18 06:30 Magnesium 2.0 mg/dL (1.8-2.4) 04/22/18 05:30 Total Bilirubin 0.5 mg/dL (0.2-1.0) 04/22/18 05:30 AST 18 U/L (15-37) 04/22/18 05:30 ALT 18 U/L (12-78) 04/22/18 05:30 Alkaline Phosphatase 158 U/L (45-117) H D 04/22/18 05:30 Creatine Kinase 66 IU/L (26-192) 04/21/18 12:40 Troponin I 0.04 ng/ml (0.00-0.05) 04/21/18 12:40 B-Natriuretic Peptide 1705.06 pg/ml (5-125) H 04/21/18 12:40 Total Protein 7.0 g/dl (6.4-8.2) 04/22/18 05:30 Albumin 3.1 g/dl (3.4-5.0) L 04/22/18 05:30 TSH 0.81 uIU/ml (0.358-3.74) 04/20/18 14:28 Current Medications Generic Name Dose Route Start Last Admin Trade Name Freq PRN Reason Stop Dose Admin Albuterol/Ipratropium 1 amp 04/20/18 18:37 04/22/18 21:40 Duoneb - NEB 1 amp Q4H PRN Administration ASTHMA Atorvastatin Calcium 10 mg 04/20/18 22:00 04/22/18 21:29 Lipitor - PO 10 mg HS [facility] Administration Dextrose 25 gm 04/20/18 18:29 D50w (Vial) - IVPUSH PRN PRN hypoglycemia Furosemide 40 mg 04/24/18 10:00 Lasix - PO DAILY [facility] Heparin Sodium (Porcine) 5,000 unit 04/22/18 06:00 04/23/18 05:57 Heparin - SQ 5,000 unit TID [facility] Administration Insulin Aspart 1 vial 04/21/18 22:00 04/22/18 21:29 Novolog Vial Sliding Scale - SQ 4 unit HS [facility] Administration Protocol Insulin Aspart 1 vial 04/21/18 16:30 04/23/18 06:00 Novolog Vial Sliding Scale - SQ 2 units TIDAC [facility] Administration Protocol Insulin Detemir 25 units 04/23/18 10:04 Levemir Vial SQ ACBK [facility] Metoprolol Tartrate 50 mg 04/21/18 10:00 04/23/18 09:14 Lopressor - PO 50 mg DAILY [facility] Administration Montelukast Sodium 10 mg 04/20/18 22:00 04/22/18 21:28 Singulair - PO 10 mg HS [facility] Administration Oxycodone HCl 10 mg 04/22/18 10:55 04/23/18 04:17 Roxicodone - PO 10 mg Q6H PRN Administration PAIN LEVEL 6-10 AP: DM Hypoglycemia: Sec to overdose of Insulin. Seems to have taken 150 units of Levemir 200 units of Humalog Discussed need to take Insulin as presribed. Demonstrated use of Insulin pen again. . Pt verbalizes understanding. Pt's nurse to do it again before discharge BGM QACHS Novolog SS coverage Levemir 15 units daily. Nutrition Consult Diabetes education Pt to be discharged home on Levemir 15 daily in the morning and Humalog 5 units TID with meals. The same explained to patient. Not to take Levemir and Humalog as she was taking prior to admission. Dose to be adjusted as outpatient by PCP. F/U with PCP within the week of discharge. Pericardial effusion/Pleural Effusion on CT Chest Mediastinal Lymphadenopathy HTN HLD Asthma
[2018-04-23] MEDS: FUROSEMIDE 40 MG/4 ML INJECTABLE VIAL IVPUSH SCH (14:50)
--- NOTE | 2018-04-23 16:24 | PN ---
Progress Note, Physician Chief Complaint: Patient appears comfortable. No SOB at rest, chest pain or palpitation. Refuses to wear tele monitor. Tele showed sinus with 5 beat NSVT. History of Present Illness: 58 year old woman with a PMHx of HTN, IDDM, HLD, asthma, and nonischemic CM with LVEF 25% and severe MR on recent echo in March with history of cath in 2016 with normal coronaries admitted with diaphoretic and pale with evidence of severe hypoglycemia (glucose level and it was found to be 42). Patient had altered mental status and was lethargic according to the ED staff. She has been treated for chronic systolic CHF. CXR: venous congestion and cannot r/o superimposed infiltrate - Current Medication List Current Medications: Active Medications Albuterol/Ipratropium (Duoneb -) 1 amp NEB Q4H PRN PRN Reason: ASTHMA Last Admin: 04/22/18 21:40 Dose: 1 amp Atorvastatin Calcium (Lipitor -) 10 mg PO HS [facility] Last Admin: 04/22/18 21:29 Dose: 10 mg Carvedilol (Coreg -) 6.25 mg PO BID [facility] Dextrose (D50w (Vial) -) 25 gm IVPUSH PRN PRN PRN Reason: hypoglycemia Furosemide (Lasix -) 40 mg PO DAILY [facility] Heparin Sodium (Porcine) (Heparin -) 5,000 unit SQ TID [facility] Last Admin: 04/23/18 05:57 Dose: 5,000 unit Insulin Aspart (Novolog Vial Sliding Scale -) 1 vial SQ HS [facility]; Protocol Last Admin: 04/22/18 21:29 Dose: 4 unit Insulin Aspart (Novolog Vial Sliding Scale -) 1 vial SQ TIDAC [facility]; Protocol Last Admin: 04/23/18 11:58 Dose: Not Given Insulin Detemir (Levemir Vial) 15 units SQ ACBK [facility] Losartan Potassium (Cozaar -) 25 mg PO DAILY [facility] Montelukast Sodium (Singulair -) 10 mg PO HS [facility] Last Admin: 04/22/18 21:28 Dose: 10 mg Oxycodone HCl (Roxicodone -) 10 mg PO Q6H PRN PRN Reason: PAIN LEVEL 6-10 Last Admin: 04/23/18 04:17 Dose: 10 mg Spironolactone (Aldactone -) 25 mg PO DAILY [facility] - Objective Vital Signs: Vital Signs Temperature 98 F 09/10/18 14:45 Pulse Rate 77 04/23/18 14:45 Respiratory Rate 20 04/23/18 14:45 Blood Pressure 119/47 04/23/18 14:45 O2 Sat by Pulse Oximetry (%) 96 04/23/18 04:00 General: Well developed. Well nourished. No acute distress. Head: Normocephalic. Atraumatic, Eyes: PERRLA, EOMI. Sclerae anicteric. Conjunctivae clear. Neck: Supple. No JVD. No bruits. Heart: Normal S1, S2: Regularly regular rhythm and rate. No murmur. No gallop or rub. Lungs: Symmetrical air entry. Clear to auscultation. No crackle. No wheezing or rhonchi. Abdomen: Soft. Bowel sound positive. Non tender. No masses. Extremities: No edema. No clubbing or cyanosis. PD 2+, equal bilaterally. Labs: CBC, BMP 04/22/18 06:00 04/22/18 05:30 INR, PTT INR 1.16 (0.83-1.09) H 04/20/18 14:28 Assessment/Plan 58 year old woman with a PMHx of HTN, IDDM, HLD, asthma, and nonischemic CM with LVEF 25% and severe MR on recent echo in March with history of cath in 2016 with normal coronaries admitted with diaphoretic and pale with evidence of severe hypoglycemia (glucose level and it was found to be 42). Patient had altered mental status and was lethargic according to the ED staff. She has been treated for chronic systolic CHF. CXR: venous congestion and cannot r/o superimposed infiltrate. Nonischemic cardiac myopathy with chronic systolic CHF and severe LV systolic dysfunction: -Unclar what meds she was taking at home. Prefer patient to be on low dose beta elias, losartan, and spironolactone if bp tolerates. Start Carvedilol 6.25 mg BID (titrate up as BP tolerated), losartan 25 mg daily and spironolactone 25 mg daily. Monitor BP, heart rate, potassium and renal function. Continue Lasix 40 mg daily.
[2018-04-23] MEDS: ALBUTEROL SO4 2.5/IPRATROPIUM 0.5 INH SOL 3 ML VIAL.NEB. NEB PRN ×2 (17:28→22:00)
[2018-04-23] MEDS: LOSARTAN POTASSIUM 25 MG TABLET PO SCH (18:08)
[2018-04-23] MEDS: SPIRONOLACTONE 25 MG TABLET (FP) PO SCH (18:08)
[2018-04-23] MEDS: ATORVASTATIN CA 10 MG TABLET (FP) PO SCH (21:16)
[2018-04-23] MEDS: MONTELUKAST NA 10 MG TABLET PO SCH (21:16)
[2018-04-23] MEDS: CARVEDILOL 6.25 MG TABLET (FP) PO SCH (21:16)
[2018-04-24] MEDS: INSULIN SLIDING SCALE (NOVOLOG) 1 VIAL SQ SCH ×2 (06:12→12:00)
[2018-04-24] MEDS: HEPARIN NA (PORCINE) 5,000 UNITS/ML 1ML VIAL SQ SCH (06:18)
--- NOTE | 2018-04-24 08:03 | PN ---
Progress Note, Physician - Current Medication List Current Medications: Active Medications Albuterol/Ipratropium (Duoneb -) 1 amp NEB Q4H PRN PRN Reason: ASTHMA Last Admin: 04/23/18 22:00 Dose: 1 amp Atorvastatin Calcium (Lipitor -) 10 mg PO HS [facility] Last Admin: 04/23/18 21:16 Dose: 10 mg Carvedilol (Coreg -) 6.25 mg PO BID [facility] Last Admin: 04/23/18 21:16 Dose: 6.25 mg Dextrose (D50w (Vial) -) 25 gm IVPUSH PRN PRN PRN Reason: hypoglycemia Furosemide (Lasix -) 40 mg PO DAILY [facility] Heparin Sodium (Porcine) (Heparin -) 5,000 unit SQ TID [facility] Last Admin: 04/24/18 06:18 Dose: 5,000 unit Insulin Aspart (Novolog Vial Sliding Scale -) 1 vial SQ HS [facility]; Protocol Last Admin: 04/23/18 21:17 Dose: 2 unit Insulin Aspart (Novolog Vial Sliding Scale -) 1 vial SQ TIDAC [facility]; Protocol Last Admin: 04/24/18 06:12 Dose: 4 units Insulin Detemir (Levemir Vial) 15 units SQ ACBK [facility] Last Admin: 04/24/18 06:21 Dose: 15 units Losartan Potassium (Cozaar -) 25 mg PO DAILY [facility] Last Admin: 04/23/18 18:08 Dose: Not Given Montelukast Sodium (Singulair -) 10 mg PO HS [facility] Last Admin: 04/23/18 21:16 Dose: 10 mg Oxycodone HCl (Roxicodone -) 10 mg PO Q6H PRN PRN Reason: PAIN LEVEL 6-10 Last Admin: 04/23/18 21:21 Dose: 10 mg Spironolactone (Aldactone -) 25 mg PO DAILY [facility] Last Admin: 04/23/18 18:08 Dose: Not Given - Objective Vital Signs: Vital Signs Temperature 98.6 F 04/24/18 06:00 Pulse Rate 77 04/24/18 06:00 Respiratory Rate 18 04/24/18 06:00 Blood Pressure 116/83 04/24/18 06:00 O2 Sat by Pulse Oximetry (%) 98 04/24/18 04:00 Cardiovascular: Yes: S1, S2 Respiratory: Yes: Regular, CTA Bilaterally Gastrointestinal: Yes: Normal Bowel Sounds, Soft Labs: CBC, BMP 04/22/18 06:00 04/22/18 05:30 INR, PTT INR 1.16 (0.83-1.09) H 04/20/18 14:28 Problem List - Problems (1) Hypoglycemia Assessment/Plan: Meds from home reviewed pt was using 3cc syringe to inject insulin dose was inappropriate==this was discussed with pt and granddaughter -Likely medication induced -Patient reports taking Lantus and Levemir with oral medications -ISS Q6H -BGM Q6H -D50 PRN -Endo Consult noted Code(s): E16.2 - HYPOGLYCEMIA, UNSPECIFIED (2) CHF (congestive heart failure) Assessment/Plan: -EF 25% -on coreg and arb -Lasix to po -Further plan per cardio Code(s): I50.9 - HEART FAILURE, UNSPECIFIED (3) Diabetes Assessment/Plan: -As above -Levemir started Code(s): E11.9 - TYPE 2 DIABETES MELLITUS WITHOUT COMPLICATIONS Qualifiers: Diabetes mellitus type: type 1 Diabetes mellitus complication status: with hyperglycemia Qualified Code(s): E10.65 - Type 1 diabetes mellitus with hyperglycemia (4) HTN (hypertension) Assessment/Plan: -Metoprolol Code(s): I10 - ESSENTIAL (PRIMARY) HYPERTENSION Qualifiers: Hypertension type: essential hypertension Qualified Code(s): I10 - Essential (primary) hypertension (5) Mediastinal adenopathy Assessment/Plan: -CT chest noted--pulm on board -will need outpatient follow up Code(s): R59.0 - LOCALIZED ENLARGED LYMPH NODES
[2018-04-24 09:04] LABS: ANION GAP 7 MMOL/L (8-16); BLOOD UREA NITROGEN 32 mg/dL (7-18); CHLORIDE 104 mmol/L (98-107); CO2 25 mmol/L (21-32); CREATININE 1.2 mg/dL (0.55-1.02); GLUCOSE,RANDOM 248 mg/dL (74-106); POTASSIUM 4.9 mmol/L (3.5-5.1); SODIUM 136 mmol/L (136-145)
[2018-04-24] MEDS ORDERED: FUROSEMIDE 40 MG TABLET (FP) PO SCH (10:00)
[2018-04-24] MEDS: CARVEDILOL 6.25 MG TABLET (FP) PO SCH (10:16)
[2018-04-24] MEDS: SPIRONOLACTONE 25 MG TABLET (FP) PO SCH (10:17)
[2018-04-24] MEDS: LOSARTAN POTASSIUM 25 MG TABLET PO SCH (10:17)
[2018-04-24] MEDS ORDERED: CARVEDILOL 12.5 MG TABLET (FP) PO SCH (10:21)
--- NOTE | 2018-04-24 10:24 | PN ---
Progress Note, Physician History of Present Illness: seen and examined today in nad. no overnight events. no new complaints. - Current Medication List Current Medications: Active Medications Albuterol/Ipratropium (Duoneb -) 1 amp NEB Q4H PRN PRN Reason: ASTHMA Last Admin: 04/23/18 22:00 Dose: 1 amp Atorvastatin Calcium (Lipitor -) 10 mg PO HS [facility] Last Admin: 04/23/18 21:16 Dose: 10 mg Carvedilol (Coreg -) 6.25 mg PO BID [facility] Last Admin: 04/24/18 10:16 Dose: 6.25 mg Dextrose (D50w (Vial) -) 25 gm IVPUSH PRN PRN PRN Reason: hypoglycemia Furosemide (Lasix -) 40 mg PO DAILY [facility] Last Admin: 04/24/18 10:16 Dose: 40 mg Heparin Sodium (Porcine) (Heparin -) 5,000 unit SQ TID [facility] Last Admin: 04/24/18 06:18 Dose: 5,000 unit Insulin Aspart (Novolog Vial Sliding Scale -) 1 vial SQ HS [facility]; Protocol Last Admin: 04/23/18 21:17 Dose: 2 unit Insulin Aspart (Novolog Vial Sliding Scale -) 1 vial SQ TIDAC [facility]; Protocol Last Admin: 04/24/18 06:12 Dose: 4 units Insulin Detemir (Levemir Vial) 15 units SQ ACBK [facility] Last Admin: 04/24/18 06:21 Dose: 15 units Losartan Potassium (Cozaar -) 25 mg PO DAILY [facility] Last Admin: 04/24/18 10:17 Dose: 25 mg Montelukast Sodium (Singulair -) 10 mg PO [facility] Last Admin: 04/23/18 21:16 Dose: 10 mg Oxycodone HCl (Roxicodone -) 10 mg PO Q6H PRN PRN Reason: PAIN LEVEL 6-10 Last Admin: 04/23/18 21:21 Dose: 10 mg Spironolactone (Aldactone -) 25 mg PO DAILY [facility] Last Admin: 04/24/18 10:17 Dose: 25 mg - Objective Vital Signs: Vital Signs Temperature 98.6 F 04/24/18 06:00 Pulse Rate 77 04/24/18 06:00 Respiratory Rate 18 04/24/18 06:00 Blood Pressure 116/83 04/24/18 06:00 O2 Sat by Pulse Oximetry (%) 98 04/24/18 04:00 Constitutional: Yes: No Distress, Calm Eyes: Yes: Conjunctiva Clear, EOM Intact HENT: Yes: Atraumatic, Normocephalic Neck: Yes: Supple, Trachea Midline Cardiovascular: Yes: Regular Rate and Rhythm, S1, S2. No: Bradycardia, Tachycardia, Pulse Irregular, Bruit, JVD, Gallop, Murmur, Rub, S3, S4, Varicosities Respiratory: Yes: Regular, Diminished. No: Rales, Rhonchi, SOB, Wheezes Gastrointestinal: Yes: Normal Bowel Sounds, Soft Edema: No Peripheral Pulses WNL: Yes Neurological: Yes: Alert, Oriented Psychiatric: Yes: Alert, Oriented Labs: CBC, BMP 04/22/18 06:00 04/24/18 07:55 INR, PTT INR 1.16 (0.83-1.09) H 04/20/18 14:28 - ....Imaging Chest X-ray: Report Reviewed, Image Reviewed EKG: Report Reviewed, Image Reviewed Other: Report Reviewed, Image Reviewed (tele-no sig arrhythmias recorded) Assessment/Plan 58 year old woman with a PMHx of HTN, IDDM, HLD, asthma, and nonischemic CM with LVEF 25% and severe MR on recent echo in March with history of cath in 2016 with normal coronaries admitted with diaphoretic and pale with evidence of severe hypoglycemia (glucose level and it was found to be 42). Patient had altered mental status and was lethargic according to the ED staff. She has been treated for chronic systolic CHF. CXR: venous congestion and cannot r/o superimposed infiltrate. Nonischemic cardiomyopathy with chronic systolic CHF and severe LV systolic dysfunction: -currently euvolemic and compensated -Unclear what meds she was taking at home. -cont Coreg 6.25mg bid -if BP tolerates start Losartan and spironolactone, BP did not tolerate yesterday and thus these meds were not given -cont Lasix 40mg po daily for now -Pt is acceptable for discharge planning from a cardiac standpoint with a plan for close outpatient fup and additiona/titration of meds as tolerates. If she does not tolerate Losartan/spironolactone as inpatient can be re-evaluated as outpatient
--- NOTE | 2018-04-24 10:25 | PN ---
Progress Note, Physician History of Present Illness: pulmonary alert,no distress,-cp,-sob,-cough - Current Medication List Current Medications: Active Medications Albuterol/Ipratropium (Duoneb -) 1 amp NEB Q4H PRN PRN Reason: ASTHMA Last Admin: 04/23/18 22:00 Dose: 1 amp Atorvastatin Calcium (Lipitor -) 10 mg PO HS [facility] Last Admin: 04/23/18 21:16 Dose: 10 mg Carvedilol (Coreg -) 6.25 mg PO BID [facility] Last Admin: 04/24/18 10:16 Dose: 6.25 mg Dextrose (D50w (Vial) -) 25 gm IVPUSH PRN PRN PRN Reason: hypoglycemia Furosemide (Lasix -) 40 mg PO DAILY [facility] Last Admin: 04/24/18 10:16 Dose: 40 mg Heparin Sodium (Porcine) (Heparin -) 5,000 unit SQ TID [facility] Last Admin: 04/24/18 06:18 Dose: 5,000 unit Insulin Aspart (Novolog Vial Sliding Scale -) 1 vial SQ HS [facility]; Protocol Last Admin: 04/23/18 21:17 Dose: 2 unit Insulin Aspart (Novolog Vial Sliding Scale -) 1 vial SQ TIDAC [facility]; Protocol Last Admin: 04/24/18 06:12 Dose: 4 units Insulin Detemir (Levemir Vial) 15 units SQ ACBK [facility] Last Admin: 04/24/18 06:21 Dose: 15 units Losartan Potassium (Cozaar -) 25 mg PO DAILY [facility] Last Admin: 04/24/18 10:17 Dose: 25 mg Montelukast Sodium (Singulair -) 10 mg PO [facility] Last Admin: 04/23/18 21:16 Dose: 10 mg Oxycodone HCl (Roxicodone -) 10 mg PO Q6H PRN PRN Reason: PAIN LEVEL 6-10 Last Admin: 04/23/18 21:21 Dose: 10 mg Spironolactone (Aldactone -) 25 mg PO DAILY [facility] Last Admin: 04/24/18 10:17 Dose: 25 mg - Objective Vital Signs: Vital Signs Temperature 98.6 F 04/24/18 06:00 Pulse Rate 77 04/24/18 06:00 Respiratory Rate 18 04/24/18 06:00 Blood Pressure 116/83 04/24/18 06:00 O2 Sat by Pulse Oximetry (%) 98 04/24/18 04:00 Constitutional: Yes: Well Nourished, Calm Eyes: Yes: WNL HENT: Yes: WNL Neck: Yes: WNL Cardiovascular: Yes: Regular Rate and Rhythm, S1, S2 Respiratory: Yes: CTA Bilaterally Gastrointestinal: Yes: Normal Bowel Sounds, Soft Extremities: Yes: WNL Edema: No Labs: CBC, BMP 04/24/18 07:55 INR, PTT Assessment/Plan Problem List - Problems (1) Hypoglycemia Code(s): E16.2 - HYPOGLYCEMIA, UNSPECIFIED (2) COPD exacerbation Code(s): J44.1 - CHRONIC OBSTRUCTIVE PULMONARY DISEASE W (ACUTE) EXACERBATION (3) Diabetes 1.5, managed as type 1 Code(s): E10.9 - TYPE 1 DIABETES MELLITUS WITHOUT COMPLICATIONS 4 Medistinal adenopathy Assessment/Plan HYPOGLYCEMIC EPISODE HAS RESOLVED RESPIRATORY STATUS STABLE PFTS OUTPATIENT CONSIDER PET CT OUTPATIENT TO FURTHER EVALUATE MEDISTINAL ADENOPATHY NEBS PRN ON A BETA SELECTIVE LYDIA WHICH IS OK WITH COPD/BRONCHOSPASM DR LOMELI
[2018-04-24 11:29] VITALS: BP 112/82; PULSE 84; TEMP 97.5
[2018-04-24] MEDS ORDERED: INSULIN (NOVOLOG) ASPART 100 UNITS/ML 10ML VIAL ONE (11:56)
== END 2018-04-24 14:01 | disposition home health service (06) | DRG 917 ==
LOC: JER 14:05 → JERBED 17:12 → J5S 20:33 → J4W 04-21 16:15 → OBSVTOIN 04-22 13:59
PROVIDERS: ADMIT Internal Medicine; ATTEND Family Medicine
DX: T38.3X1A Poisoning by insulin and oral hypoglycemic [antidiabetic] drugs, accidental (unintentional), initial encounter (principal); G92 Toxic encephalopathy; I42.8 Other cardiomyopathies; I31.3 Pericardial effusion (noninflammatory); I50.22 Chronic systolic (congestive) heart failure; Z79.4 Long term (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 of insulin; E11.649 Type 2 diabetes mellitus with hypoglycemia without coma; R68.0 Hypothermia, not associated with low environmental temperature; E87.6 Hypokalemia; D75.1 Secondary polycythemia; I11.0 Hypertensive heart disease with heart failure; I50.9 Heart failure, unspecified; E78.5 Hyperlipidemia, unspecified; J45.909 Unspecified asthma, uncomplicated; R59.0 Localized enlarged lymph nodes; I34.0 Nonrheumatic mitral (valve) insufficiency
CPT/HCPCS: 36415; 71045-TC-FY; 71250-TC; 80048; 80053; 81003; 81015; 82550; 82962; 83036; 83525; 83605; 83735; 83880; 84100; 84132; 84443; 84484; 85025; 85027; 85610; 86850; 86900; 86901; 87040; 87086; 93005; 93010; 94640; 99283-25; G0378; J1644; J7030; J7620

== ENCOUNTER 2018-04-25 12:05 | Inpatient (IN) | payer OTHER ==
[2018-04-25 12:19] VITALS: BMI 32.5
--- NOTE | 2018-04-25 15:50 | PDOC ---
*Physical Exam - Vital Signs Last Vital Signs Temp Pulse Resp BP Pulse Ox 98.2 F 89 17 138/100 97 04/25/18 12:16 04/25/18 12:16 04/25/18 12:16 04/25/18 12:16 04/25/18 12:16 - Physical Exam Comments: 04/25/18 15:50 The patient was examined by [ZAHRA Redmond] under my direct supervision. I personally evaluated the patient. I concur with the above findings and the plan of care. ED Treatment Course - LABORATORY CBC & Chemistry Diagram: 04/30/18 06:20 04/30/18 06:20 *DC/Admit/Observation/Transfer Diagnosis at time of Disposition: Phlebitis, Thrombophlebitis of upper extremity - Discharge Dispostion Disposition: VNS/HOME HEALTH CARE Condition at time of disposition: Stable - Prescriptions - Referrals - Patient Instructions - Post Discharge Activity
--- NOTE | 2018-04-25 15:50 | PDOC ---
History of Present Illness - General Chief Complaint: Edema Stated Complaint: SWOLLEN RT ARM Time Seen by Provider: 04/25/18 14:11 History Source: Patient Exam Limitations: No Limitations - History of Present Illness Initial Comments: 04/25/18 15:59 58-year-old female presents to the emergency room for evaluation of right arm swelling and pain including redness and limited range of motion secondary to the above symptoms. Patient states was discharged from [facility] yesterday and had IVs to the right forearm. Pt states no symptoms but when she awoke this morning she had noticed the above. Patient denies fever, chills, weakness of the right upper extremity or sensory changes to the area. Patient denies chest pain or difficulty breathing. Timing/Duration: constant, getting worse Severity: moderate Associated Symptoms: reports: denies symptoms Past History - Travel Traveled outside of the country in the last 30 days: No - Past Medical History Allergies/Adverse Reactions: Allergies Allergy/AdvReac Type Severity Reaction Status Date / Time No Known Allergies Allergy Verified 04/25/18 12:19 Home Medications: Ambulatory Orders Albuterol 2.5/Ipratropium 0.5 [Duoneb -] 1 neb NEB Q4H PRN #180 amp 05/03/17 Atorvastatin Ca [Lipitor] 10 mg PO HS #30 tab 05/03/17 Linaclotide [Linzess] 145 mcg PO DAILY #30 cap 05/03/17 Montelukast Na [Singulair -] 10 mg PO HS #30 tab 05/03/17 Esomeprazole Magnesium [Nexium 24Hr] 20 mg PO 04/20/18 Carvedilol [Coreg -] 6.25 mg PO BID #60 tablet 04/24/18 Furosemide [Lasix -] 40 mg PO DAILY #30 tablet 04/24/18 Insulin (Levemir) [Levemir Vial] 15 units SQ ACBK units 04/24/18 Insulin Sliding Scale [Novolog Vial Sliding Scale -] 1 vial SQ HS units Losartan Potassium [Cozaar -] 25 mg PO DAILY #30 tablet 04/24/18 Spironolactone [Aldactone -] 25 mg PO DAILY #30 tablet 04/24/18 Asthma: Yes Cancer: No COPD: No DVT: No Diabetes: Yes GI Disorders: No Disorders: No HTN: Yes Hypercholesterolemia: Yes Liver Disease: No Thyroid Disease: No - Surgical History Cholecystectomy: Yes - Immunization History Immunization Up to Date: Yes - Suicide/Smoking/Psychosocial Hx Smoking History: Current every day smoker Have you smoked in the past 12 months: Yes Number of Cigarettes Smoked Daily: 10 If you are a former smoker, when did you quit?: 1 month ago Cigars Per Day: 0 Information on smoking cessation initiated: Yes 'Breaking Loose' booklet given: 04/25/18 Hx Alcohol Use: No Drug/Substance Use Hx: No Substance Use Type: None Hx Substance Use Treatment: No Patient Lives Alone: No Lives with/in: spouse/SO Review of Systems - Review of Systems Able to Perform ROS?: No Constitutional: No: Symptoms Reported HEENTM: No: Symptoms Reported Respiratory: No: Symptoms reported Cardiac (ROS): No: Symptoms Reported ABD/GI: No: Symptoms Reported : No: Symptoms Reported Musculoskeletal: Yes: Muscle Pain Integumentary: Yes: Erythema, Lumps Neurological: No: Symptoms reported Endocrine: No: Symptoms Reported Hematologic/Lymphatic: No: Symptoms Reported *Physical Exam - Vital Signs Last Vital Signs Temp Pulse Resp BP Pulse Ox 98.2 F 89 17 138/100 97 04/25/18 12:16 04/25/18 12:16 04/25/18 12:16 04/25/18 12:16 04/25/18 12:16 - Physical Exam General Appearance: Yes: Nourished, Appropriately Dressed. No: Apparent Distress HEENT: negative: Pale Conjunctivae Respiratory/Chest: positive: Lungs Clear, Normal Breath Sounds. negative: Respiratory Distress, Accessory Muscle Use Cardiovascular: positive: Regular Rhythm, Regular Rate. negative: Murmur Gastrointestinal/Abdominal: positive: Soft. negative: Tenderness Musculoskeletal: positive: Normal Inspection Extremity: positive: Normal Capillary Refill, Tender (generalized over rt forearm and hand). negative: Normal Inspection (noted increased warmth, edema, and redness over the right hand and distal forearm), Normal Range of Motion ( unable to flex at right wrist) Integumentary: positive: Erythema, Swelling Neurologic: positive: Motor Strength 5/5 (rt hand grasp) ED Treatment Course - RADIOLOGY Radiology Studies Ordered: Category Date Time Status DUPLEX VASCUL US-1 ARM [US] Stat Ultrasound 04/25/18 14:55 Ordered Medical Decision Making - Medical Decision Making 04/25/18 15:11 Patient here for evaluation of right forearm swelling redness, and pain since awakening this morning. Patient states had IVs placed to the affected area which were removed upon discharge yesterday. Patient denies fever or chills or drainage from the IV insertion sites. Patient exam and signing for superficial thrombosis versus cellulitis versus phlebitis. Patient ordered for ultrasound to rule out DVT along with labs and IV vancomycin. 04/25/18 16:31 Ultrasound shows no evidence of DVT. Superficial thrombosis within the cephalic pain are noted. Thrombus within a superficial hand pain is at the site of a recent IV. Patient be admitted for IV antibiotics under Dr. Winkler. He is recommending Dr. Rivers ID physician. *DC/Admit/Observation/Transfer Diagnosis at time of Disposition: Phlebitis, Thrombophlebitis of upper extremity - Discharge Dispostion Decision to Admit order: Yes - Referrals - Patient Instructions - Post Discharge Activity
[2018-04-25] MEDS ORDERED: MAGNESIUM SULF 50% (8.12 MEQ/2 ML-1 GM VIAL) ONE (15:58)
[2018-04-25] MEDS ORDERED: VANCOMYCIN 1,000 MG in DEXTROSE 5%-WATER - 250 ML IVPB ONE (15:58)
[2018-04-25] MEDS ORDERED: VANCOMYCIN 1 GRAM (PRE-DOCKED) 1,000 MG/250 ML BAG IVPB ONE (16:44)
[2018-04-25 17:18] LABS: BASO % 0.9 % (0-2.0); EOS % 1.1 % (0-4.5); HEMATOCRIT 49.2 % (32.4-45.2); HEMOGLOBIN 15.9 GM/dL (10.7-15.3); LYMPH % 21.4 % (8-40); MCH 28.7 pg (25.7-33.7); MCHC 32.4 g/dl (32.0-36.0); MEAN CELL VOLUME 88.6 fl (80-96); MEAN PLT VOLUME 8.3 fl (7.5-11.1); NEUT % 65.6 % (42.8-82.8); PLATELET COUNT 292 K/MM3 (134-434); RBC 5.55 M/mm3 (3.60-5.2); RDW 16.5 % (11.6-15.6); WHITE BLOOD COUNT 5.5 K/mm3 (4.0-10.0)
[2018-04-25 17:34] LABS: INR 1.22 (0.83-1.09); PROTHROMBIN TIME (PATIENT) 13.8 SEC (9.7-13.0)
[2018-04-25 17:44] LABS: ALBUMIN 3.4 g/dl (3.4-5.0); ANION GAP 6 MMOL/L (8-16); CHLORIDE 104 mmol/L (98-107); CO2 28 mmol/L (21-32); CREATININE 0.9 mg/dL (0.55-1.02); GLUCOSE,RANDOM 210 mg/dL (74-106); POTASSIUM 4.8 mmol/L (3.5-5.1); SGOT/AST 24 U/L (15-37); SGPT/ALT 28 U/L (12-78); SODIUM 138 mmol/L (136-145)
[2018-04-25 17:47] LABS: ALK PHOS 196 U/L (45-117); BILIRUBIN,TOTAL 0.7 mg/dL (0.2-1.0); BLOOD UREA NITROGEN 20 mg/dL (7-18); TOT PROT 7.8 g/dl (6.4-8.2)
[2018-04-25 23:23] LABS: URINE APPEARANCE SLCLOUDY; URINE BILIRUBIN NEGATIVE (<2.0 mg/dL); URINE COLOR YELLOW; URINE GLUCOSE (UA) 3+ (NEGATIVE); URINE KETONE NEGATIVE (NEGATIVE); URINE LEUK ESTERASE TRACE (NEGATIVE); URINE NITRITE NEGATIVE (NEGATIVE)
[2018-04-25 23:24] LABS: URINE PROTEIN 2+ (NEGATIVE)
[2018-04-25 23:26] LABS: EPI CELLS RARE /HPF (FEW); URINE MUCUS RARE
[2018-04-25] MEDS: HEPARIN NA (PORCINE) 5,000 UNITS/ML 1ML VIAL SQ SCH (23:55)
[2018-04-26] MEDS ORDERED: oxyCODONE HCL 5 MG TABLET PO ONE (01:17)
--- NOTE | 2018-04-26 02:16 | HP ---
CHIEF COMPLAINT: RIGHT ARM PAIN PCP: Cathi HISTORY OF PRESENT ILLNESS: This is a 58 year old female with a significant past medical history of DM, HTN , HLD, asthma who presented to the ED with right arm pain and swelling since awakening 04/25. She was discharged 04/24 after a brief hospitalization for hypoglycemia and CHF. She reports that she had IVs placed in her right arm. ER course was notable for: (1) US neg for DVT, + for superficial thrombus cephalic vein (2) WBC 5.5 Recent Travel: pt denies PAST MEDICAL HISTORY: HTN, HLD, CHF, IDDM, asthma PAST SURGICAL HISTORY: cholecystectomy Social History: Smoking: previous 1ppd x 30+ years, quit recently Alcohol: pt denies Drugs: pt denies Family History: mother HTN, HLD father DM Allergies No Known Allergies Allergy (Verified 04/25/18 12:19) HOME MEDICATIONS: 3 Medication Instructions Recorded Albuterol 2.5/Ipratropium 0.5 1 neb NEB Q4H PRN #180 amp 05/03/17 [Duoneb -] Atorvastatin Ca [Lipitor] 10 mg PO HS #30 tab 05/03/17 Linaclotide [Linzess] 145 mcg PO DAILY #30 cap 05/03/17 Montelukast Na [Singulair -] 10 mg PO HS #30 tab 05/03/17 Esomeprazole Magnesium [Nexium 20 mg PO DAILY 04/20/18 24Hr] Carvedilol [Coreg -] 6.25 mg PO BID #60 tablet 04/24/18 Furosemide [Lasix -] 40 mg PO DAILY #30 tablet 04/24/18 Insulin (Levemir) [Levemir Vial] 15 units SQ ACBK units 04/24/18 Insulin Sliding Scale [Novolog 1 vial SQ HS units 04/24/18 Vial Sliding Scale -] Losartan Potassium [Cozaar -] 25 mg PO DAILY #30 tablet 04/24/18 Spironolactone [Aldactone -] 25 mg PO DAILY #30 tablet 04/24/18 REVIEW OF SYSTEMS CONSTITUTIONAL: Absent: fever, chills, diaphoresis, generalized weakness, malaise, loss of appetite, weight change HEENT: Absent: rhinorrhea, nasal congestion, throat pain, throat swelling, difficulty swallowing, mouth swelling, ear pain, eye pain, visual changes CARDIOVASCULAR: Absent: chest pain, syncope, palpitations, irregular heart rate, lightheadedness , peripheral edema RESPIRATORY: Absent: cough, shortness of breath, dyspnea with exertion, orthopnea, wheezing, stridor, hemoptysis GASTROINTESTINAL: Absent: abdominal pain, abdominal distension, nausea, vomiting, diarrhea, constipation, melena, hematochezia GENITOURINARY: Absent: dysuria, frequency, urgency, hesitancy, hematuria, flank pain, genital pain MUSCULOSKELETAL: Present: right arm pain, redness and swelling Absent: myalgia, arthralgia, joint swelling, back pain, neck pain SKIN: Absent: rash, itching, pallor HEMATOLOGIC/IMMUNOLOGIC: Absent: easy bleeding, easy bruising, lymphadenopathy, frequent infections ENDOCRINE: Absent: unexplained weight gain, unexplained weight loss, heat intolerance, cold intolerance NEUROLOGIC: Absent: headache, focal weakness or paresthesias, dizziness, unsteady gait, seizure, mental status changes, bladder or bowel incontinence PSYCHIATRIC: Absent: anxiety, depression, suicidal or homicidal ideation, hallucinations. PHYSICAL EXAMINATION Vital Signs - 24 hr 3 04/25/18 04/25/18 04/25/18 12:16 12:35 18:31 Temperature 98.2 F 97.7 F Pulse Rate 89 Pulse Rate [ 91 H Right Radial] Respiratory 17 18 Rate Blood Pressure 138/100 Blood Pressure 131/72 [Left Arm] O2 Sat by Pulse 97 99 98 Oximetry (%) 3 04/25/18 04/25/18 04/25/18 20:42 21:00 23:44 Temperature 98.9 F Pulse Rate 87 Pulse Rate [ Right Radial] Respiratory 18 18 18 Rate Blood Pressure 121/84 Blood Pressure [Left Arm] O2 Sat by Pulse 97 98 Oximetry (%) GENERAL: Awake, alert, and fully oriented, in no acute distress. HEAD: Normal with no signs of trauma. EYES: Pupils equal, round and reactive to light, extraocular movements intact, sclera anicteric, conjunctiva clear. No lid lag. EARS, NOSE, THROAT: Ears normal, nares patent, oropharynx clear without exudates. Moist mucous membranes. NECK: Normal range of motion, supple without lymphadenopathy, JVD, or masses. LUNGS: Breath sounds equal, clear to auscultation bilaterally. No wheezes, and no crackles. No accessory muscle use. HEART: Regular rate and rhythm, normal S1 and S2 without murmur, rub or gallop. ABDOMEN: Soft, nontender, not distended, normoactive bowel sounds, no guarding, no rebound, no masses. No hepatomegaly or splenomegaly. MUSCULOSKELETAL: Normal range of motion at all joints except right wrist and elbow. No bony deformities or tenderness. No CVA tenderness. UPPER EXTREMITIES: 2+ pulses, warm, well-perfused. No cyanosis. No clubbing. No peripheral edema. LOWER EXTREMITIES: 2+ pulses, warm, well-perfused. No calf tenderness. No peripheral edema. NEUROLOGICAL: Cranial nerves II-XII intact. Normal speech. PSYCHIATRIC: Cooperative. Good eye contact. Appropriate mood and affect. SKIN: Warm, dry, normal turgor, no rashes or lesions noted, normal capillary refill. + swelling, tenderness and excessive warmth noted right hand and forearm. minimal erythema. Laboratory Results - last 24 hr 3 04/25/18 04/25/18 04/25/18 17:05 17:05 17:05 WBC 5.5 RBC 5.55 H Hgb 15.9 H Hct 49.2 H MCV 88.6 MCH 28.7 MCHC 32.4 RDW 16.5 H Plt Count 292 MPV 8.3 Absolute Neuts (auto) 3.6 Neutrophils % 65.6 D Lymphocytes % 21.4 D Monocytes % 11.0 H Eosinophils % 1.1 Basophils % 0.9 Nucleated RBC % 0 PT with INR 13.80 H INR 1.22 H Sodium Potassium Chloride Carbon Dioxide Anion Gap BUN Creatinine Creat Clearance w eGFR POC Glucometer Random Glucose Lactic Acid 1.6 Calcium Total Bilirubin AST ALT Alkaline Phosphatase Total Protein Albumin Urine Color Urine Appearance Urine pH Ur Specific [place] Urine Protein Urine Glucose (UA) Urine Ketones Urine Blood Urine Nitrite Urine Bilirubin Urine Urobilinogen Ur Leukocyte Esterase Urine WBC (Auto) Urine RBC (Auto) Ur Epithelial Cells Urine Mucus 3 04/25/18 04/25/18 04/26/18 17:05 Unknown 01:13 WBC RBC Hgb Hct MCV MCH MCHC RDW Plt Count MPV Absolute Neuts (auto) Neutrophils % Lymphocytes % Monocytes % Eosinophils % Basophils % Nucleated RBC % PT with INR INR Sodium 138 Potassium 4.8 Chloride 104 Carbon Dioxide 28 Anion Gap 6 L BUN 20 H Creatinine 0.9 Creat Clearance w eGFR > 60 POC Glucometer 251 Random Glucose 210 H Lactic Acid Calcium 9.0 Total Bilirubin 0.7 AST 24 ALT 28 Alkaline Phosphatase 196 H D Total Protein 7.8 Albumin 3.4 Urine Color Yellow Urine Appearance Slcloudy Urine pH 5.0 Ur Specific [place] 1.023 Urine Protein 2+ H Urine Glucose (UA) 3+ H Urine Ketones Negative Urine Blood 1+ H Urine Nitrite Negative Urine Bilirubin Negative Urine Urobilinogen 2.0 H Ur Leukocyte Esterase Trace Urine WBC (Auto) 4 Urine RBC (Auto) 7 Ur Epithelial Cells Rare Urine Mucus Rare Radiology Reports Duplex US Right arm IMPRESSION: 1. No evidence of deep venous thrombosis. 2. Superficial thrombosis within the cephalic vein. 3. Thrombus within a superficial hand vein at the site of a recent IV. Please see above discussion. Reported By: Karl Burns MD 04/25/18 [id number] ASSESSMENT/PLAN: 58yF with PMH DM, HTN, HLD, CHF, asthma presented to the ED with swelling, redness and pain to right forearm. Cellulitis vs thombophlebitis Right arm - given vanco in ED - ID consult, as pt afebrile and no WBC, will defer antibiotic tx to ID - warm compresses - oxycodone for pain, consider short course NSAID if oxycodone not effective superficial thrombus right arm - consider anticoagulation, will attempt conservative management: pain management, warm compresses and elevation HTN/HLD/CHF - cont home meds: lipitor, coreg 6.25, lasix, cozaar, aldactone - monitor BP closely DM - cont home levemir - BGM AC/HS asthma - cont home duoneb PRN - cont home singulair DVT PPX - heparin 5000u SC FEN - tolerating po - BMP in am - diabetic/low sodium diet as tolerated Dispo: Pt currently requires further observation. Visit type - Emergency Visit Emergency Visit: Yes ED Registration Date: 04/25/18 Care time: The patient presented to the Emergency Department on the above date and was hospitalized for further evaluation of their emergent condition. - New Patient This patient is new to me today: Yes Date on this admission: 04/26/18 - Critical Care Critical Care patient: No Hospitalist Screening - Colonoscopy Questionnaire Colonoscopy Questionnaire: Colonoscopy Questionnaire - Patient: 50 - 75 years old and never had a screening colonoscopy: Yes History of colon or rectal polyps, or CA: Unknown History of IBD, Crohn's disease or UC: Unknown History of abdominal radiation therapy as a child: Unknown - Relative: 1 with colon or rectal CA, or polyps at age 60 or younger: Unknown Colon or rectal CA diagnosed at age 45 or younger: Unknown Multiple relatives with colon or rectal CA: Unknown - Outcome: Screening Result: Positive Screen
[2018-04-26] MEDS: oxyCODONE HCL 5 MG TABLET PO PRN ×5 (02:39→21:56)
[2018-04-26] MEDS: HEPARIN NA (PORCINE) 5,000 UNITS/ML 1ML VIAL SQ SCH ×3 (06:45→21:52)
[2018-04-26] MEDS: INSULIN SLIDING SCALE (NOVOLOG) 1 VIAL SQ SCH ×4 (06:46→21:52)
[2018-04-26] MEDS ORDERED: INSULIN (LEVEMIR) 100 UNITS/ML UNITS SQ SCH (07:00)
[2018-04-26 07:46] LABS: BASO % 0.5 % (0-2.0); EOS % 1.2 % (0-4.5); HEMATOCRIT 43.5 % (32.4-45.2); HEMOGLOBIN 14.4 GM/dL (10.7-15.3); LYMPH % 21.9 % (8-40); MCH 29.4 pg (25.7-33.7); MEAN CELL VOLUME 88.9 fl (80-96); MEAN PLT VOLUME 8.7 fl (7.5-11.1); MONO % 13.8 % (3.8-10.2); NEUT % 62.6 % (42.8-82.8); PLATELET COUNT 267 K/MM3 (134-434); RBC 4.89 M/mm3 (3.60-5.2); RDW 16.6 % (11.6-15.6); WHITE BLOOD COUNT 5.6 K/mm3 (4.0-10.0)
[2018-04-26 08:35] LABS: ANION GAP 6 MMOL/L (8-16); BLOOD UREA NITROGEN 17 mg/dL (7-18); CALCIUM 8.5 mg/dL (8.5-10.1); CHLORIDE 104 mmol/L (98-107); CO2 27 mmol/L (21-32); CREATININE 0.8 mg/dL (0.55-1.02); GLUCOSE,RANDOM 252 mg/dL (74-106); MAGNESIUM 1.8 mg/dL (1.8-2.4); POTASSIUM 4.7 mmol/L (3.5-5.1); SODIUM 137 mmol/L (136-145)
[2018-04-26] MEDS: LOSARTAN POTASSIUM 25 MG TABLET PO SCH (09:26)
[2018-04-26] MEDS: PANTOPRAZOLE 20 MG TABLET (FP) PO SCH (09:26)
[2018-04-26] MEDS: FUROSEMIDE 40 MG TABLET (FP) PO SCH (09:26)
[2018-04-26] MEDS: CARVEDILOL 6.25 MG TABLET (FP) PO SCH ×2 (09:26→21:52)
[2018-04-26] MEDS: SPIRONOLACTONE 25 MG TABLET (FP) PO SCH (09:27)
[2018-04-26] MEDS ORDERED: IBUPROFEN 400 MG TABLET (FP) PO PRN (12:15)
--- NOTE | 2018-04-26 12:18 | PN ---
Progress Note, Physician Chief Complaint: patient seen and examined complaining of hand pain and swelling unable to flex her wrist and any slight movement causing severe pain - Current Medication List Current Medications: Active Medications Albuterol/Ipratropium (Duoneb -) 1 amp NEB Q4H PRN PRN Reason: ASTHMA Atorvastatin Calcium (Lipitor -) 10 mg PO HS [facility] Carvedilol (Coreg -) 6.25 mg PO BID [facility] Last Admin: 04/26/18 09:26 Dose: 6.25 mg Furosemide (Lasix -) 40 mg PO DAILY [facility] Last Admin: 04/26/18 09:26 Dose: 40 mg Heparin Sodium (Porcine) (Heparin -) 5,000 unit SQ TID [facility] Last Admin: 04/26/18 06:45 Dose: 5,000 unit Insulin Aspart (Novolog Vial Sliding Scale -) 1 vial SQ ACHS [facility]; Protocol Last Admin: 04/26/18 06:46 Dose: 3 units Insulin Detemir (Levemir Vial) 20 units SQ ACBK [facility] Losartan Potassium (Cozaar -) 25 mg PO DAILY [facility] Last Admin: 04/26/18 09:26 Dose: 25 mg Montelukast Sodium (Singulair -) 10 mg PO HS [facility] Non-Formulary Medication (Linaclotide [Linzess]) 145 mcg PO DAILY [facility] Oxycodone HCl (Roxicodone -) 10 mg PO Q4H PRN PRN Reason: PAIN LEVEL 6-10 Last Admin: 04/26/18 12:03 Dose: 10 mg Pantoprazole Sodium (Protonix -) 20 mg PO DAILY [facility] Last Admin: 04/26/18 09:26 Dose: 20 mg Spironolactone (Aldactone -) 25 mg PO DAILY [facility] Last Admin: 04/26/18 09:27 Dose: 25 mg - Objective Vital Signs: Vital Signs Temperature 97.6 F 04/26/18 09:30 Pulse Rate 90 04/26/18 09:30 Respiratory Rate 22 04/26/18 09:30 Blood Pressure 126/84 04/26/18 09:30 O2 Sat by Pulse Oximetry (%) 98 04/25/18 23:44 Constitutional: Yes: Mild Distress Cardiovascular: Yes: Regular Rate and Rhythm, S1, S2 Respiratory: Yes: CTA Bilaterally Gastrointestinal: Yes: Normal Bowel Sounds, Soft Extremities: Yes: Other (hand and wrist is swollen and tender to touch warm decreased ROM) Edema: No Labs: CBC, BMP 04/26/18 06:30 04/26/18 06:30 INR, PTT INR 1.22 (0.83-1.09) H 04/25/18 17:05 Problem List - Problems (1) Thrombophlebitis of upper extremity Assessment/Plan: warm compress motrin hand elevation hand and wrist xray ortho and ID eval got vancomycin one dose heparin subQ tid Code(s): I80.8 - PHLEBITIS AND THROMBOPHLEBITIS OF OTHER SITES (2) CHF (congestive heart failure) Assessment/Plan: aldactone coreg lasix losartan Code(s): I50.9 - HEART FAILURE, UNSPECIFIED (3) Diabetes Assessment/Plan: insulin bgm sliding scale Code(s): E11.9 - TYPE 2 DIABETES MELLITUS WITHOUT COMPLICATIONS Qualifiers: Diabetes mellitus type: type 1 Diabetes mellitus complication status: with hyperglycemia Qualified Code(s): E10.65 - Type 1 diabetes mellitus with hyperglycemia (4) COPD (chronic obstructive pulmonary disease) Assessment/Plan: bronchodilators singulair Code(s): J44.9 - CHRONIC OBSTRUCTIVE PULMONARY DISEASE, UNSPECIFIED
[2018-04-26] MEDS ORDERED: INSULIN (NOVOLOG) ASPART 100 UNITS/ML 10ML VIAL ONE ×2 (12:58→21:25)
[2018-04-26] MEDS ORDERED: VANCOMYCIN 1,000 MG in DEXTROSE 5%-WATER - 250 ML IVPB ONE (14:52)
[2018-04-26] MEDS ORDERED: PIPERACILLIN/TAZOB 3.375 GM 3.375 GM in DEXTROSE 5%-WATER - 50 ML IVPB ONE (14:53)
[2018-04-26] MEDS ORDERED: PIPERACILLIN/TAZOBACTAM 3.375 GM VIAL IVPB ONE (16:13)
[2018-04-26] MEDS ORDERED: DEXTROSE 5%-WATER - 50 ML IVPB ONE (16:13)
--- NOTE | 2018-04-26 16:36 | PN ---
Progress Note (short form) - Note Progress Note: ID Consult dictated ? catheter -related staph bacteremia Await BC Echocardiogram Vancomycin
[2018-04-26] MEDS ORDERED: VANCOMYCIN 1,000 MG in DEXTROSE 5%-WATER - 250 ML IVPB SCH (17:00)
[2018-04-26] MEDS: VANCOMYCIN 1,250 MG in DEXTROSE 5%-WATER - 250 ML IVPB SCH (17:28)
--- NOTE | 2018-04-26 17:53 | CONS ---
DATE OF CONSULTATION: DATE OF DICTATION: 04/26/2018 INFECTIOUS DISEASE CONSULTATION The patient is a 58-year-old diabetic female who was evaluated for positive blood cultures. The patient was recently hospitalized at [facility] from December 20 through December 22 for symptomatic hypoglycemia. She was discharged on the December 22. She now returns with complaints of right hand and upper extremity pain and swelling. The patient developed pain and swelling approximately within 24 hours prior to readmission. She denies any traumatic injury to the hand. No insect or animal bites or scratches. The patient did note that she had an IV catheter present in the right hand which was causing her discomfort. She denies any fever. She did complain of chills. She was evaluated in the emergency room where cultures were obtained. Blood cultures are now positive for gram-positive cocci in clusters in 2/4 bottles. Doppler exam was negative for DVT but did show a superficial thrombophlebitis. PAST MEDICAL HISTORY: Positive for congestive heart failure, COPD, hypertension, diabetes mellitus, asthma. PAST SURGICAL HISTORY: Status post cholecystectomy and tubal ligation. No known allergies. LABORATORY DATA: White count 5.6, creatinine 0.8. PHYSICAL EXAMINATION: General: She is awake. She is lethargic status post pain medication. Vital Signs: Temperature 98.0, blood pressure 114/85, pulse 83 regular, respirations 20 per minute. Eyes: Sclerae anicteric. Heart: Sounds S1, S2 with a possible soft pansystolic murmur. Lungs: Grossly clear. Abdomen: Obese, nontender. Extremities: Examination of the right hand: There appears to be a puncture wound present on the dorsal aspect of the right hand in the area of the wrist. It is tender to palpation and slightly indurated. There is no palpable cord. There is diffuse swelling of the dorsum of the hand. No appreciable erythema or lymphangitis. No crepitus or fluctuance. IMPRESSION: 1. Possible catheter-related thrombophlebitis/bacteremia. 2. Diabetes mellitus. RECOMMENDATIONS: 1. Await identification of blood isolate. Obtain echocardiogram. 2. Empiric vancomycin 1 g IV piggyback every 12 hours pending identification of blood isolate. 3. Further recommendations to follow. 4. Surgery evaluation. Thank you for the kind referral. BEN SANDOVAL M.D. [id number]
[2018-04-26] MEDS: ALBUTEROL SO4 2.5/IPRATROPIUM 0.5 INH SOL 3 ML VIAL.NEB. NEB PRN (20:45)
[2018-04-26] MEDS: MONTELUKAST NA 10 MG TABLET PO SCH (21:51)
[2018-04-26] MEDS: ATORVASTATIN CA 10 MG TABLET (FP) PO SCH (21:52)
[2018-04-27] MEDS: guaiFENesin 200 MG/10 ML 10 ML UNIT-DOSE CUPS PO PRN (01:37)
[2018-04-27] MEDS: VANCOMYCIN 1,250 MG in DEXTROSE 5%-WATER - 250 ML IVPB SCH ×2 (04:41→17:43)
[2018-04-27] MEDS: oxyCODONE HCL 5 MG TABLET PO PRN ×3 (06:42→19:18)
[2018-04-27] MEDS: INSULIN (LEVEMIR) 100 UNITS/ML UNITS SQ SCH (06:43)
[2018-04-27] MEDS: HEPARIN NA (PORCINE) 5,000 UNITS/ML 1ML VIAL SQ SCH ×3 (06:43→21:36)
[2018-04-27] MEDS: INSULIN SLIDING SCALE (NOVOLOG) 1 VIAL SQ SCH ×4 (06:46→21:36)
[2018-04-27] MEDS ORDERED: PT OWN MED DRAWER 7, Y5N ONE ×2 (11:25→17:30)
[2018-04-27] MEDS: FUROSEMIDE 40 MG TABLET (FP) PO SCH (11:27)
[2018-04-27] MEDS: PANTOPRAZOLE 20 MG TABLET (FP) PO SCH (11:27)
[2018-04-27] MEDS: CARVEDILOL 6.25 MG TABLET (FP) PO SCH ×2 (11:27→21:36)
[2018-04-27] MEDS: LOSARTAN POTASSIUM 25 MG TABLET PO SCH (11:27)
[2018-04-27] MEDS: SPIRONOLACTONE 25 MG TABLET (FP) PO SCH (11:27)
--- NOTE | 2018-04-27 11:50 | ECHO ---
Name: NANCY KWOK Exam:Adult Echocardiogram Study Date: 04/27/2018 10:47 AM Age: 58 yrs Reason For Study: +BLOOD CULTURE C/S STAPH Height: 64 in Weight: 190 lb BSA: 1.9 m2 MMode/2D Measurements & Calculations IVSd: 0.98 cm Ao root diam: 2.9 cm LVIDd: 5.5 cm LA dimension: 4.2 cm LVIDs: 5.0 cm LVPWd: 0.99 cm EDV(Teich): 145.4 ml TAPSE: 1.9 cm ESV(Teich): 119.4 ml RV S Tito: 6.1 cm/sec Doppler Measurements & Calculations MV E max tito: 76.5 cm/sec MR max tito: 357.8 cm/sec MV A max tito: 22.2 cm/sec MR max P.9 mmHg MV E/A: 3.4 MV dec time: 0.14 sec TR max tito: 178.0 cm/sec PI end-d tito: 156.4 cm/sec TR max P.7 mmHg Med Peak E' Tito: 4.0 cm/sec Med E/e': 18.9 Lat Peak E' Tito: 5.6 cm/sec Lat E/e': 13.6 Left Ventricle Left ventricular systolic function is severely reduced. Ejection Fraction = 15-20%. Right Ventricle The right ventricle is grossly normal size. The right ventricular systolic function is grossly normal . Atria The left atrium is mildly dilated. Mitral Valve The mitral valve is grossly normal. There is no mitral valve stenosis. There is mild mitral regurgita tion. Tricuspid Valve The tricuspid valve is not well visualized, but is grossly normal. There is mild to moderate tricuspi d regurgitation. Aortic Valve The aortic valve opens well. No hemodynamically significant valvular aortic stenosis. No aortic regur gitation is present. Pulmonic Valve The pulmonic valve is not well seen, but is grossly normal. There is no pulmonic valvular stenosis. M ild pulmonic valvular regurgitation. Great Vessels The aortic root is normal size. Pericardium/Pleura There is no pericardial effusion. Interpretation Summary Left ventricular systolic function is severely reduced. Ejection Fraction = 15-20%. The left atrium is mildly dilated. There is mild mitral regurgitation. There is mild to moderate tricuspid regurgitation. Mild pulmonic valvular regurgitation. There is no pericardial effusion. MD Skyler Hernandez 04/27/2018 11:49 AM
[2018-04-27] MEDS ORDERED: INSULIN (NOVOLOG) ASPART 100 UNITS/ML 10ML VIAL ONE ×3 (12:08→21:26)
--- NOTE | 2018-04-27 13:38 | PN ---
Progress Note, Physician Chief Complaint: patient seen and examined complaining of hand pain and swelling unable to flex her wrist and any slight movement causing severe pain - Current Medication List Current Medications: Active Medications Albuterol/Ipratropium (Duoneb -) 1 amp NEB Q4H PRN PRN Reason: ASTHMA Last Admin: 04/26/18 20:45 Dose: 1 amp Atorvastatin Calcium (Lipitor -) 10 mg PO HS [facility] Last Admin: 04/26/18 21:52 Dose: 10 mg Carvedilol (Coreg -) 6.25 mg PO BID [facility] Last Admin: 04/27/18 11:27 Dose: 6.25 mg Furosemide (Lasix -) 40 mg PO DAILY [facility] Last Admin: 04/27/18 11:27 Dose: 40 mg Guaifenesin (Robitussin -) 10 ml PO Q4H PRN PRN Reason: COUGH Last Admin: 04/27/18 01:37 Dose: 10 ml Heparin Sodium (Porcine) (Heparin -) 5,000 unit SQ TID [facility] Last Admin: 04/27/18 06:43 Dose: 5,000 unit Vancomycin HCl 1,250 mg/ (Dextrose) 250 mls @ 166.667 mls/hr IVPB BID@0500, 1700 [facility]; Protocol Last Admin: 04/27/18 04:41 Dose: 166.667 mls/hr Ibuprofen (Motrin -) 400 mg PO Q6H PRN PRN Reason: FEVER Insulin Aspart (Novolog Vial Sliding Scale -) 1 vial SQ ACHS [facility]; Protocol Last Admin: 04/27/18 12:47 Dose: 2 units Insulin Detemir (Levemir Vial) 20 units SQ ACBK [facility] Last Admin: 04/27/18 06:43 Dose: 20 units Losartan Potassium (Cozaar -) 25 mg PO DAILY [facility] Last Admin: 04/27/18 11:27 Dose: 25 mg Montelukast Sodium (Singulair -) 10 mg PO [facility] Last Admin: 04/26/18 21:51 Dose: 10 mg Non-Formulary Medication (Linaclotide [Linzess]) 145 mcg PO DAILY [facility] Oxycodone HCl (Roxicodone -) 10 mg PO Q4H PRN PRN Reason: PAIN LEVEL 6-10 Last Admin: 04/27/18 11:29 Dose: 10 mg Pantoprazole Sodium (Protonix -) 20 mg PO DAILY [facility] Last Admin: 04/27/18 11:27 Dose: 20 mg Spironolactone (Aldactone -) 25 mg PO DAILY [facility] Last Admin: 04/27/18 11:27 Dose: 25 mg - Objective Vital Signs: Vital Signs Temperature 98.3 F 04/27/18 06:00 Pulse Rate 80 04/27/18 06:00 Respiratory Rate 20 04/27/18 06:00 Blood Pressure 125/90 04/27/18 06:00 O2 Sat by Pulse Oximetry (%) 98 04/26/18 22:49 Constitutional: Yes: Calm Cardiovascular: Yes: Regular Rate and Rhythm, S2 Respiratory: Yes: CTA Bilaterally Gastrointestinal: Yes: Normal Bowel Sounds, Soft Extremities: Yes: Other (hand and arm swelling reduced and less tender to touch able to flex fingers) Edema: No Neurological: Yes: Alert, Oriented Labs: CBC, BMP 04/26/18 06:30 04/26/18 06:30 INR, PTT INR 1.22 (0.83-1.09) H 04/25/18 17:05 Problem List - Problems (1) Thrombophlebitis of upper extremity Assessment/Plan: warm compress motrin hand elevation hand and wrist xray ortho and ID eval noted Microbiology 04/25/18 17:05 Blood - Peripheral Venous Blood Culture - Preliminary Presumptive Mrsa (Pbp2a Pos) contact isolatiion echo done got vancomycin one dose heparin subQ tid Code(s): I80.8 - PHLEBITIS AND THROMBOPHLEBITIS OF OTHER SITES (2) CHF (congestive heart failure) Assessment/Plan: aldactone coreg lasix losartan Code(s): I50.9 - HEART FAILURE, UNSPECIFIED (3) Diabetes Assessment/Plan: insulin bgm sliding scale Code(s): E11.9 - TYPE 2 DIABETES MELLITUS WITHOUT COMPLICATIONS Qualifiers: Diabetes mellitus type: type 1 Diabetes mellitus complication status: with hyperglycemia Qualified Code(s): E10.65 - Type 1 diabetes mellitus with hyperglycemia (4) COPD (chronic obstructive pulmonary disease) Assessment/Plan: bronchodilators singulair Code(s): J44.9 - CHRONIC OBSTRUCTIVE PULMONARY DISEASE, UNSPECIFIED
--- NOTE | 2018-04-27 14:19 | CONSULT ---
Consult - text type - Consultation Consultation Note: FULL CONSULT DICTATED IMP; RIGHT HAND CELLULITIS AND INFECTION OF IV SITE BUT NO SPECIFIC ABSCESS AT THIS TIME PLAN: IV ABX, ELEVATION AND WARM SOAKS, WILL FOLLOW
--- NOTE | 2018-04-27 16:15 | PN ---
Progress Note, Physician History of Present Illness: Reports less hand pain No c/o fever/ chills BC presumptive MRSA - Current Medication List Current Medications: Active Medications Albuterol/Ipratropium (Duoneb -) 1 amp NEB Q4H PRN PRN Reason: ASTHMA Last Admin: 04/26/18 20:45 Dose: 1 amp Atorvastatin Calcium (Lipitor -) 10 mg PO HS [facility] Last Admin: 04/26/18 21:52 Dose: 10 mg Carvedilol (Coreg -) 6.25 mg PO BID [facility] Last Admin: 04/27/18 11:27 Dose: 6.25 mg Furosemide (Lasix -) 40 mg PO DAILY [facility] Last Admin: 04/27/18 11:27 Dose: 40 mg Guaifenesin (Robitussin -) 10 ml PO Q4H PRN PRN Reason: COUGH Last Admin: 04/27/18 01:37 Dose: 10 ml Heparin Sodium (Porcine) (Heparin -) 5,000 unit SQ TID [facility] Last Admin: 04/27/18 14:07 Dose: 5,000 unit Vancomycin HCl 1,250 mg/ (Dextrose) 250 mls @ 166.667 mls/hr IVPB BID@0500, 1700 [facility]; Protocol Last Admin: 04/27/18 04:41 Dose: 166.667 mls/hr Ibuprofen (Motrin -) 400 mg PO Q6H PRN PRN Reason: FEVER Insulin Aspart (Novolog Vial Sliding Scale -) 1 vial SQ ACHS [facility]; Protocol Last Admin: 04/27/18 12:47 Dose: 2 units Insulin Detemir (Levemir Vial) 20 units SQ ACBK [facility] Last Admin: 04/27/18 06:43 Dose: 20 units Losartan Potassium (Cozaar -) 25 mg PO DAILY [facility] Last Admin: 04/27/18 11:27 Dose: 25 mg Montelukast Sodium (Singulair -) 10 mg PO HS [facility] Last Admin: 04/26/18 21:51 Dose: 10 mg Non-Formulary Medication (Linaclotide [Linzess]) 145 mcg PO DAILY [facility] Oxycodone HCl (Roxicodone -) 10 mg PO Q4H PRN PRN Reason: PAIN LEVEL 6-10 Last Admin: 04/27/18 11:29 Dose: 10 mg Pantoprazole Sodium (Protonix -) 20 mg PO DAILY [facility] Last Admin: 04/27/18 11:27 Dose: 20 mg Spironolactone (Aldactone -) 25 mg PO DAILY [facility] Last Admin: 04/27/18 11:27 Dose: 25 mg - Objective Vital Signs: Vital Signs Temperature 98.3 F 04/27/18 15:59 Pulse Rate 87 04/27/18 15:59 Respiratory Rate 18 04/27/18 15:59 Blood Pressure 128/95 04/27/18 15:59 O2 Sat by Pulse Oximetry (%) 95 04/27/18 10:00 Constitutional: Yes: No Distress Cardiovascular: Yes: Regular Rate and Rhythm, S1, S2 Respiratory: Yes: CTA Bilaterally Gastrointestinal: Yes: Normal Bowel Sounds, Soft, Abdomen, Obese. No: Tenderness Extremities: Yes: Other (+ R hand swelling/ tenderness/ decreased ROM) Labs: CBC, BMP 04/26/18 06:30 04/26/18 06:30 INR, PTT INR 1.22 (0.83-1.09) H 04/25/18 17:05 Assessment/Plan ? catheter- related bacteremia Await BC result Continue vancomycin
--- NOTE | 2018-04-27 16:20 | CON.CARD ---
Consult Consult Specialty:: Cardiology Referred by:: Dr. Winkler Reason for Consultation:: Systolic CHF - History of Present Illness Chief Complaint: Right hand pain History of Present Illness: 58 year old woman with PMHx of HTN, DM, HLD, chronic systolic CHF with severe LV systolic dysfunction secondary to non-ischemic cardiomyopathy with normal coronary arteries from cardiac cath in October 2016, asthma; recently treated for systolic CHF and discharged 04/24/2018, readmitted 04/25/2018 with right arm IV site pain and swelling. US showed right superficial thrombus in cephalic vein. Seen by ID. Jacinto peterson. Ms. Cardoso has been stable from cardiac stand point. She has no recurrent SOB, edema, orthopnea or PND. No chest pain, palpitation, syncope or near syncope. Repeat echo 04/27/2018 showed normal LV size with severe global LV systolic dysfunction, LVEF = 15-20%. Normal RV. Mild MR. - History Source History Provided By: Patient, Medical Record Limitations to Obtaining History: No Limitations - Past Medical History Cardio/Vascular: Yes: HTN, Hyperlipdemia. No: AFIB, CAD Pulmonary: Yes: Asthma, COPD. No: O2 Dependent, Pneumonia, Pulmonary Embolus, Pulmonary Fibrosis, Sleep Apnea Gastrointestinal: Yes: GERD. No: Cancer Renal/: Yes: Renal Inusuff Endocrine: Yes: Diabetes Mellitus - Alcohol/Substance Use Hx Alcohol Use: No - Smoking History Smoking history: Former smoker Have you smoked in the past 12 months: Yes Aproximately how many cigarettes per day: 10 If you are a former smoker, when did you quit?: 1 month ago - Social History Usual Living Arrangement: With Spouse ADL: Independent History of Recent Travel: No Home Medications - Allergies Allergies/Adverse Reactions: Allergies Allergy/AdvReac Type Severity Reaction Status Date / Time No Known Allergies Allergy Verified 04/25/18 12:19 - Home Medications Home Medications: Ambulatory Orders Albuterol 2.5/Ipratropium 0.5 [Duoneb -] 1 neb NEB Q4H PRN #180 amp 05/03/17 Atorvastatin Ca [Lipitor] 10 mg PO HS #30 tab 05/03/17 Linaclotide [Linzess] 145 mcg PO DAILY #30 cap 05/03/17 Montelukast Na [Singulair -] 10 mg PO HS #30 tab 05/03/17 Esomeprazole Magnesium [Nexium 24Hr] 20 mg PO DAILY 04/20/18 Carvedilol [Coreg -] 6.25 mg PO BID #60 tablet 04/24/18 Furosemide [Lasix -] 40 mg PO DAILY #30 tablet 04/24/18 Insulin (Levemir) [Levemir Vial] 15 units SQ ACBK units 04/24/18 Insulin Sliding Scale [Novolog Vial Sliding Scale -] 1 vial SQ HS units Losartan Potassium [Cozaar -] 25 mg PO DAILY #30 tablet 04/24/18 Spironolactone [Aldactone -] 25 mg PO DAILY #30 tablet 04/24/18 Family Disease History - Family Disease History Family Disease History: Diabetes: Father, Brother Review of Systems - Review of Systems Constitutional: reports: No Symptoms Eyes: reports: No Symptoms HENT: reports: No Symptoms Neck: reports: No Symptoms Cardiovascular: reports: No Symptoms Respiratory: reports: No Symptoms Gastrointestinal: reports: No Symptoms Genitourinary: reports: No Symptoms Breasts: reports: No Symptoms Reported Musculoskeletal: reports: Other (Right hand pain and swelling) Neurological: reports: No Symptoms Endocrine: reports: No Symptoms Vital Signs: Vital Signs Temperature 98.3 F 04/27/18 15:59 Pulse Rate 87 04/27/18 15:59 Respiratory Rate 18 04/27/18 15:59 Blood Pressure 128/95 04/27/18 15:59 O2 Sat by Pulse Oximetry (%) 95 04/27/18 10:00 General: Well developed. Well nourished. No acute distress. Head: Normocephalic. Atraumatic, Eyes: PERRLA, EOMI. Sclerae anicteric. Conjunctivae clear. Neck: Supple. No JVD. No bruits. Heart: Normal S1, S2: Regularly regular rhythm and rate. No murmur. No gallop or rub. Lungs: Symmetrical air entry. Clear to auscultation. No crackle. No wheezing or rhonchi. Abdomen: Soft. Bowel sound positive. Non tender. No masses. Extremities: Right hand and forearm swelling, warm and tender. No leg edema. No clubbing or cyanosis. PD 2+, equal bilaterally. Neuro: Intact, no focal findings. AAO X3. - Other Data Labs, Other Data: CBC, BMP 04/26/18 06:30 04/26/18 06:30 INR, PTT INR 1.22 (0.83-1.09) H 04/25/18 17:05 Assessment/Plan 58 year old woman with PMHx of HTN, DM, HLD, chronic systolic CHF with severe LV systolic dysfunction secondary to non-ischemic cardiomyopathy with normal coronary arteries from cardiac cath in October 2016, asthma; recently treated for systolic CHF and discharged 04/24/2018, readmitted 04/25/2018 with right arm IV site pain and swelling. US showed right superficial thrombus in cephalic vein. Seen by ID. Vancomycin started. Ms. Cardoso has been stable from cardiac stand point. She has no recurrent SOB, edema, orthopnea or PND. No chest pain, palpitation, syncope or near syncope. Repeat echo 04/27/2018 showed normal LV size with severe global LV systolic dysfunction, LVEF = 15-20%. Normal RV. Mild MR. Chronic systolic CHF with severe LV systolic dysfunction: Stable without acute exacerbation. No physical signs of fluid overload. 1) Increase carvedilol to 12.5 mg BID. 2) Continue Losartan, increase it to 50 mg daily as BP tolerated. 3) Continue Lasix and Aldactone. 4) Close out-pt cardiac follow up with Dr. Peacock. 5) May need AICD if LV systolic function remains poor in 2-3 months. Please call us for reconsult as needed.
--- NOTE | 2018-04-27 17:47 | CONS ---
DATE OF CONSULTATION: 04/27/2018 ORTHOPEDIC CONSULTATION HISTORY OF PRESENT ILLNESS: Patient is a 58-year-old female who is readmitted from the emergency room yesterday with a painful and swollen right hand. She had just been discharged from the hospital a few days prior where she had an IV that was placed in her right hand. Since then, the pain and swelling has intensified. Patient was admitted and placed on IV antibiotics, and orthopedic consultation was requested. Patient states that she feels much better than she did yesterday when they started her on IV antibiotics. LABORATORY: Values are positive for a white count which is normal, 5.5. She denies fever. PHYSICAL EXAMINATION: She does have painful swollen dorsum of the right hand in the mid aspect, propagating over the wrist, some erythema in this region, no lymphangitis, good motion of all of her fingers, no deep space tenderness in the palm or hand. She can range her wrist but it is quite painful. There is, at the center of this region, a small puncture wound where the IP was inserted, but there does not appear to be any abscess or fluctuance in any specific location. IMPRESSION: Cellulitis and potentially a septic phlebitis from an IV site in the right hand. I recommend continued intravenous antibiotics as per infectious disease. Elevation, warm soaks, and will follow patient over the next few days, see how she does. JAHAIRA GAMEZ M.D. [id number]
[2018-04-27] MEDS: ATORVASTATIN CA 10 MG TABLET (FP) PO SCH (21:36)
[2018-04-27] MEDS: MONTELUKAST NA 10 MG TABLET PO SCH (21:36)
[2018-04-28] MEDS: VANCOMYCIN 1,250 MG in DEXTROSE 5%-WATER - 250 ML IVPB SCH ×3 (05:41→18:25)
[2018-04-28] MEDS: INSULIN SLIDING SCALE (NOVOLOG) 1 VIAL SQ SCH ×4 (06:50→21:15)
[2018-04-28] MEDS: oxyCODONE HCL 5 MG TABLET PO PRN ×3 (06:50→21:17)
[2018-04-28] MEDS: HEPARIN NA (PORCINE) 5,000 UNITS/ML 1ML VIAL SQ SCH ×3 (06:50→21:16)
[2018-04-28] MEDS: INSULIN (LEVEMIR) 100 UNITS/ML UNITS SQ SCH (06:50)
[2018-04-28 07:09] LABS: BASO % 0.7 % (0-2.0); EOS % 1.9 % (0-4.5); HEMATOCRIT 42.6 % (32.4-45.2); HEMOGLOBIN 13.6 GM/dL (10.7-15.3); MCH 28.3 pg (25.7-33.7); MCHC 31.9 g/dl (32.0-36.0); NEUT % 59.4 % (42.8-82.8); PLATELET COUNT 244 K/MM3 (134-434); RBC 4.78 M/mm3 (3.60-5.2); RDW 16.3 % (11.6-15.6); WHITE BLOOD COUNT 5.1 K/mm3 (4.0-10.0)
[2018-04-28 08:02] LABS: CHLORIDE 100 mmol/L (98-107); POTASSIUM 4.4 mmol/L (3.5-5.1); SODIUM 134 mmol/L (136-145)
[2018-04-28 08:15] LABS: ALBUMIN 2.7 g/dl (3.4-5.0); ALK PHOS 181 U/L (45-117); ANION GAP 6 MMOL/L (8-16); BILIRUBIN,TOTAL 0.6 mg/dL (0.2-1.0); BLOOD UREA NITROGEN 16 mg/dL (7-18); CALCIUM 8.2 mg/dL (8.5-10.1); CO2 28 mmol/L (21-32); CREATININE 0.8 mg/dL (0.55-1.3); GLUCOSE,RANDOM 219 mg/dL (74-106); SGOT/AST 16 U/L (15-37); SGPT/ALT 18 U/L (13-61); TOT PROT 6.4 g/dl (6.4-8.2)
--- NOTE | 2018-04-28 08:18 | PN ---
Progress Note, Physician Chief Complaint: AWAKE ALERT NAD EVENTS AND NOTES REVIEWED - Current Medication List Current Medications: Active Medications Albuterol/Ipratropium (Duoneb -) 1 amp NEB Q4H PRN PRN Reason: ASTHMA Last Admin: 04/26/18 20:45 Dose: 1 amp Atorvastatin Calcium (Lipitor -) 10 mg PO HS [facility] Last Admin: 04/27/18 21:36 Dose: 10 mg Carvedilol (Coreg -) 6.25 mg PO BID [facility] Last Admin: 04/27/18 21:36 Dose: 6.25 mg Furosemide (Lasix -) 40 mg PO DAILY [facility] Last Admin: 04/27/18 11:27 Dose: 40 mg Guaifenesin (Robitussin -) 10 ml PO Q4H PRN PRN Reason: COUGH Last Admin: 04/27/18 01:37 Dose: 10 ml Heparin Sodium (Porcine) (Heparin -) 5,000 unit SQ TID [facility] Last Admin: 04/28/18 06:50 Dose: 5,000 unit Vancomycin HCl 1,250 mg/ (Dextrose) 250 mls @ 166.667 mls/hr IVPB BID@0500, 1700 [facility]; Protocol Last Admin: 04/28/18 06:42 Dose: Not Given Ibuprofen (Motrin -) 400 mg PO Q6H PRN PRN Reason: FEVER Insulin Aspart (Novolog Vial Sliding Scale -) 1 vial SQ ACHS [facility]; Protocol Last Admin: 04/28/18 06:50 Dose: 8 units Insulin Detemir (Levemir Vial) 20 units SQ ACBK [facility] Last Admin: 04/28/18 06:50 Dose: 20 units Losartan Potassium (Cozaar -) 25 mg PO DAILY [facility] Last Admin: 04/27/18 11:27 Dose: 25 mg Montelukast Sodium (Singulair -) 10 mg PO HS [facility] Last Admin: 04/27/18 21:36 Dose: 10 mg Non-Formulary Medication (Linaclotide [Linzess]) 145 mcg PO DAILY [facility] Oxycodone HCl (Roxicodone -) 10 mg PO Q4H PRN PRN Reason: PAIN LEVEL 6-10 Last Admin: 04/28/18 06:50 Dose: 10 mg Pantoprazole Sodium (Protonix -) 20 mg PO DAILY [facility] Last Admin: 04/27/18 11:27 Dose: 20 mg Spironolactone (Aldactone -) 25 mg PO DAILY [facility] Last Admin: 04/27/18 11:27 Dose: 25 mg - Objective Vital Signs: Vital Signs Temperature 98.2 F 04/28/18 06:20 Pulse Rate 80 04/28/18 06:20 Respiratory Rate 18 04/28/18 06:20 Blood Pressure 123/85 04/28/18 06:20 O2 Sat by Pulse Oximetry (%) 96 04/27/18 21:00 Constitutional: Yes: Mild Distress Eyes: Yes: WNL HENT: Yes: WNL Neck: Yes: WNL Cardiovascular: Yes: WNL Respiratory: Yes: WNL Gastrointestinal: Yes: WNL Genitourinary: Yes: Incontinence Musculoskeletal: Yes: Muscle Weakness Extremities: Yes: WNL Edema: Yes Peripheral Pulses WNL: Yes Integumentary: Yes: WNL Wound/Incision: Yes: Clean/Dry Neurological: Yes: WNL ...Motor Strength: WNL Psychiatric: Yes: WNL Labs: CBC, BMP 04/28/18 06:10 04/28/18 06:10 INR, PTT INR 1.22 (0.83-1.09) H 04/25/18 17:05 Problem List - Problems (1) COPD (chronic obstructive pulmonary disease) Code(s): J44.9 - CHRONIC OBSTRUCTIVE PULMONARY DISEASE, UNSPECIFIED (2) Phlebitis Code(s): I80.9 - PHLEBITIS AND THROMBOPHLEBITIS OF UNSPECIFIED SITE (3) Acute on chronic systolic (congestive) heart failure Code(s): I50.23 - ACUTE ON CHRONIC SYSTOLIC (CONGESTIVE) HEART FAILURE Assessment/Plan IV ABX PER ID OOB TO CHAIR NEBS PAIN CONTROL
[2018-04-28] MEDS: FUROSEMIDE 40 MG TABLET (FP) PO SCH (09:43)
[2018-04-28] MEDS: guaiFENesin 200 MG/10 ML 10 ML UNIT-DOSE CUPS PO PRN ×2 (09:43→21:16)
[2018-04-28] MEDS: LOSARTAN POTASSIUM 25 MG TABLET PO SCH (09:43)
[2018-04-28] MEDS: PANTOPRAZOLE 20 MG TABLET (FP) PO SCH (09:44)
[2018-04-28] MEDS: CARVEDILOL 6.25 MG TABLET (FP) PO SCH ×2 (09:44→21:16)
[2018-04-28] MEDS: SPIRONOLACTONE 25 MG TABLET (FP) PO SCH (09:44)
[2018-04-28] MEDS: PATIENT'S OWN MEDICATION (NON-FORMULARY) (Linaclotide [Linzess] 145 MCG) PO SCH (09:46)
[2018-04-28] MEDS ORDERED: INSULIN (NOVOLOG) ASPART 100 UNITS/ML 10ML VIAL ONE ×3 (11:15→20:45)
--- NOTE | 2018-04-28 13:46 | PN ---
Progress Note, Physician History of Present Illness: Reports less hand pain/ swelling No c/o fever/ chills BC MRSA - Current Medication List Current Medications: Active Medications Albuterol/Ipratropium (Duoneb -) 1 amp NEB Q4H PRN PRN Reason: ASTHMA Last Admin: 04/26/18 20:45 Dose: 1 amp Atorvastatin Calcium (Lipitor -) 10 mg PO HS [facility] Last Admin: 04/27/18 21:36 Dose: 10 mg Carvedilol (Coreg -) 6.25 mg PO BID [facility] Last Admin: 04/28/18 09:44 Dose: 6.25 mg Furosemide (Lasix -) 40 mg PO DAILY [facility] Last Admin: 04/28/18 09:43 Dose: 40 mg Guaifenesin (Robitussin -) 10 ml PO Q4H PRN PRN Reason: COUGH Last Admin: 04/28/18 09:43 Dose: 10 ml Heparin Sodium (Porcine) (Heparin -) 5,000 unit SQ TID [facility] Last Admin: 04/28/18 13:25 Dose: 5,000 unit Vancomycin HCl 1,250 mg/ (Dextrose) 250 mls @ 166.667 mls/hr IVPB BID@0500, 1700 [facility]; Protocol Last Admin: 04/28/18 06:42 Dose: Not Given Ibuprofen (Motrin -) 400 mg PO Q6H PRN PRN Reason: FEVER Insulin Aspart (Novolog Vial Sliding Scale -) 1 vial SQ ACHS [facility]; Protocol Last Admin: 04/28/18 11:20 Dose: 2 units Insulin Detemir (Levemir Vial) 20 units SQ ACBK [facility] Last Admin: 04/28/18 06:50 Dose: 20 units Losartan Potassium (Cozaar -) 25 mg PO DAILY [facility] Last Admin: 04/28/18 09:43 Dose: 25 mg Montelukast Sodium (Singulair -) 10 mg PO [facility] Last Admin: 04/27/18 21:36 Dose: 10 mg Non-Formulary Medication (Linaclotide [Linzess]) 145 mcg PO DAILY [facility] Last Admin: 04/28/18 09:46 Dose: 145 mcg Oxycodone HCl (Roxicodone -) 10 mg PO Q4H PRN PRN Reason: PAIN LEVEL 6-10 Last Admin: 04/28/18 12:31 Dose: 10 mg Pantoprazole Sodium (Protonix -) 20 mg PO DAILY [facility] Last Admin: 04/28/18 09:44 Dose: 20 mg Spironolactone (Aldactone -) 25 mg PO DAILY [facility] Last Admin: 04/28/18 09:44 Dose: 25 mg - Objective Vital Signs: Vital Signs Temperature 98.7 F 04/28/18 10:00 Pulse Rate 82 04/28/18 10:00 Respiratory Rate 18 04/28/18 10:00 Blood Pressure 128/95 04/28/18 10:00 O2 Sat by Pulse Oximetry (%) 96 04/27/18 21:00 Constitutional: Yes: No Distress Eyes: Yes: Conjunctiva Clear Cardiovascular: Yes: Regular Rate and Rhythm, S1, S2 Respiratory: Yes: CTA Bilaterally Gastrointestinal: Yes: Normal Bowel Sounds, Soft. No: Tenderness Extremities: Yes: Other (decreased R hand edema/ tenderness) Edema: No Labs: CBC, BMP 04/28/18 06:10 04/28/18 06:10 INR, PTT INR 1.22 (0.83-1.09) H 04/25/18 17:05 Assessment/Plan ? catheter- related bacteremia MRSA Continue vancomycin Check trough level
[2018-04-28] MEDS ORDERED: BISACODYL 5 MG TABLET.DR (FP) PO ONE (14:00)
[2018-04-28] MEDS ORDERED: MAGNESIUM HYDROX 2400MG/30ML ORAL SUSPENSION 30 ML CUP PO ONE (14:00)
[2018-04-28] MEDS: ALBUTEROL SO4 2.5/IPRATROPIUM 0.5 INH SOL 3 ML VIAL.NEB. NEB PRN (21:05)
[2018-04-28] MEDS: ATORVASTATIN CA 10 MG TABLET (FP) PO SCH (21:16)
[2018-04-28] MEDS: MONTELUKAST NA 10 MG TABLET PO SCH (21:16)
[2018-04-29] MEDS ORDERED: PT OWN MED DRAWER 7, Y5N ONE ×2 (04:53→06:57)
[2018-04-29] MEDS: oxyCODONE HCL 5 MG TABLET PO PRN ×3 (05:36→20:15)
[2018-04-29] MEDS: VANCOMYCIN 1,250 MG in DEXTROSE 5%-WATER - 250 ML IVPB SCH ×2 (05:36→18:23)
[2018-04-29] MEDS: guaiFENesin 200 MG/10 ML 10 ML UNIT-DOSE CUPS PO PRN ×3 (05:36→21:32)
[2018-04-29] MEDS: HEPARIN NA (PORCINE) 5,000 UNITS/ML 1ML VIAL SQ SCH ×3 (06:41→21:32)
[2018-04-29] MEDS: INSULIN SLIDING SCALE (NOVOLOG) 1 VIAL SQ SCH ×4 (06:42→21:32)
[2018-04-29] MEDS: INSULIN (LEVEMIR) 100 UNITS/ML UNITS SQ SCH (06:42)
[2018-04-29] MEDS ORDERED: INSULIN (LEVEMIR) 100 UNITS/ML UNITS SQ ONE (06:57)
--- NOTE | 2018-04-29 09:07 | PN ---
Progress Note (short form) - Note Progress Note: IMPROVING SLOWLY AROM RIGHT WRIST IMPROVING AND SWELLING GOING DOWN PLAN: CONTINUE ABX , WILL FOLLOW
[2018-04-29] MEDS: PANTOPRAZOLE 20 MG TABLET (FP) PO SCH (09:38)
[2018-04-29] MEDS: LOSARTAN POTASSIUM 25 MG TABLET PO SCH (09:38)
[2018-04-29] MEDS: PATIENT'S OWN MEDICATION (NON-FORMULARY) (Linaclotide [Linzess] 145 MCG) PO SCH (09:38)
[2018-04-29] MEDS: FUROSEMIDE 40 MG TABLET (FP) PO SCH (09:38)
[2018-04-29] MEDS: CARVEDILOL 6.25 MG TABLET (FP) PO SCH ×2 (09:38→21:31)
[2018-04-29] MEDS: SPIRONOLACTONE 25 MG TABLET (FP) PO SCH (09:39)
--- NOTE | 2018-04-29 11:25 | PN ---
Progress Note, Physician Chief Complaint: AWAKE ALERT MILD DISCOMFORT - Current Medication List Current Medications: Active Medications Albuterol/Ipratropium (Duoneb -) 1 amp NEB Q4H PRN PRN Reason: ASTHMA Last Admin: 04/28/18 21:05 Dose: 1 amp Atorvastatin Calcium (Lipitor -) 10 mg PO HS [facility] Last Admin: 04/28/18 21:16 Dose: 10 mg Carvedilol (Coreg -) 6.25 mg PO BID [facility] Last Admin: 04/29/18 09:38 Dose: 6.25 mg Furosemide (Lasix -) 40 mg PO DAILY [facility] Last Admin: 04/29/18 09:38 Dose: 40 mg Guaifenesin (Robitussin -) 10 ml PO Q4H PRN PRN Reason: COUGH Last Admin: 04/29/18 09:49 Dose: 10 ml Heparin Sodium (Porcine) (Heparin -) 5,000 unit SQ TID [facility] Last Admin: 04/29/18 06:41 Dose: 5,000 unit Vancomycin HCl 1,250 mg/ (Dextrose) 250 mls @ 166.667 mls/hr IVPB BID@0500, 1700 [facility]; Protocol Last Admin: 04/29/18 05:36 Dose: 166.667 mls/hr Ibuprofen (Motrin -) 400 mg PO Q6H PRN PRN Reason: FEVER Insulin Aspart (Novolog Vial Sliding Scale -) 1 vial SQ ACHS [facility]; Protocol Last Admin: 04/29/18 11:09 Dose: 2 units Insulin Detemir (Levemir Vial) 20 units SQ ACBK [facility] Last Admin: 04/29/18 06:42 Dose: 20 units Losartan Potassium (Cozaar -) 25 mg PO DAILY [facility] Last Admin: 04/29/18 09:38 Dose: 25 mg Montelukast Sodium (Singulair -) 10 mg PO [facility] Last Admin: 04/28/18 21:16 Dose: 10 mg Non-Formulary Medication (Linaclotide [Linzess]) 145 mcg PO DAILY [facility] Last Admin: 04/29/18 09:38 Dose: 145 mcg Oxycodone HCl (Roxicodone -) 10 mg PO Q4H PRN PRN Reason: PAIN LEVEL 6-10 Last Admin: 04/29/18 09:36 Dose: 10 mg Pantoprazole Sodium (Protonix -) 20 mg PO DAILY [facility] Last Admin: 04/29/18 09:38 Dose: 20 mg Spironolactone (Aldactone -) 25 mg PO DAILY [facility] Last Admin: 04/29/18 09:39 Dose: 25 mg - Objective Vital Signs: Vital Signs Temperature 98.4 F 04/29/18 05:55 Pulse Rate 79 04/29/18 05:55 Respiratory Rate 20 04/29/18 05:55 Blood Pressure 113/77 04/29/18 05:55 O2 Sat by Pulse Oximetry (%) 96 04/28/18 21:00 Constitutional: Yes: Mild Distress Eyes: Yes: WNL HENT: Yes: WNL Neck: Yes: WNL Cardiovascular: Yes: WNL Respiratory: Yes: WNL Gastrointestinal: Yes: WNL Genitourinary: Yes: WNL Musculoskeletal: Yes: WNL Extremities: Yes: Erythema Edema: Yes Edema: RUE: 1+ Peripheral Pulses WNL: Yes Integumentary: Yes: Erythema Wound/Incision: Yes: Clean/Dry Neurological: Yes: Other Psychiatric: Yes: Other Labs: CBC, BMP 04/28/18 06:10 04/28/18 06:10 INR, PTT INR 1.22 (0.83-1.09) H 04/25/18 17:05 Problem List - Problems (1) COPD (chronic obstructive pulmonary disease) Code(s): J44.9 - CHRONIC OBSTRUCTIVE PULMONARY DISEASE, UNSPECIFIED (2) Phlebitis Code(s): I80.9 - PHLEBITIS AND THROMBOPHLEBITIS OF UNSPECIFIED SITE (3) Acute on chronic systolic (congestive) heart failure Code(s): I50.23 - ACUTE ON CHRONIC SYSTOLIC (CONGESTIVE) HEART FAILURE Assessment/Plan IV ABX PER ID OOB TO CHAIR NEBS PAIN CONTROL ORTHOPEDIC EVAL
[2018-04-29] MEDS ORDERED: MAGNESIUM HYDROX 2400MG/30ML ORAL SUSPENSION 30 ML CUP PO PRN (11:28)
[2018-04-29] MEDS: POLYETHYLENE GLYCOL 3350 119 GM BTL PO SCH (11:52)
[2018-04-29] MEDS: ALBUTEROL SO4 2.5/IPRATROPIUM 0.5 INH SOL 3 ML VIAL.NEB. NEB PRN (20:58)
[2018-04-29] MEDS ORDERED: INSULIN (NOVOLOG) ASPART 100 UNITS/ML 10ML VIAL ONE (21:20)
--- NOTE | 2018-04-29 21:24 | PN ---
Progress Note, Physician History of Present Illness: Less hand pain/ swelling No c/o fever/ chills BC MRSA - Current Medication List Current Medications: Active Medications Albuterol/Ipratropium (Duoneb -) 1 amp NEB Q4H PRN PRN Reason: ASTHMA Last Admin: 04/28/18 21:05 Dose: 1 amp Atorvastatin Calcium (Lipitor -) 10 mg PO HS [facility] Last Admin: 04/28/18 21:16 Dose: 10 mg Carvedilol (Coreg -) 6.25 mg PO BID [facility] Last Admin: 04/29/18 09:38 Dose: 6.25 mg Furosemide (Lasix -) 40 mg PO DAILY [facility] Last Admin: 04/29/18 09:38 Dose: 40 mg Guaifenesin (Robitussin -) 10 ml PO Q4H PRN PRN Reason: COUGH Last Admin: 04/29/18 09:49 Dose: 10 ml Heparin Sodium (Porcine) (Heparin -) 5,000 unit SQ TID [facility] Last Admin: 04/29/18 14:10 Dose: 5,000 unit Vancomycin HCl 1,250 mg/ (Dextrose) 250 mls @ 166.667 mls/hr IVPB BID@0500, 1700 [facility]; Protocol Last Admin: 04/29/18 18:23 Dose: 166.667 mls/hr Ibuprofen (Motrin -) 400 mg PO Q6H PRN PRN Reason: FEVER Insulin Aspart (Novolog Vial Sliding Scale -) 1 vial SQ ACHS [facility]; Protocol Last Admin: 04/29/18 16:17 Dose: 4 units Insulin Detemir (Levemir Vial) 20 units SQ ACBK [facility] Last Admin: 04/29/18 06:42 Dose: 20 units Losartan Potassium (Cozaar -) 25 mg PO DAILY [facility] Last Admin: 04/29/18 09:38 Dose: 25 mg Magnesium Hydroxide (Milk Of Magnesia -) 30 ml PO Q8H PRN PRN Reason: INDIGESTION Montelukast Sodium (Singulair -) 10 mg PO HS [facility] Last Admin: 04/28/18 21:16 Dose: 10 mg Non-Formulary Medication (Linaclotide [Linzess]) 145 mcg PO DAILY [facility] Last Admin: 04/29/18 09:38 Dose: 145 mcg Oxycodone HCl (Roxicodone -) 10 mg PO Q4H PRN PRN Reason: PAIN LEVEL 6-10 Last Admin: 04/29/18 20:15 Dose: 10 mg Pantoprazole Sodium (Protonix -) 20 mg PO DAILY [facility] Last Admin: 04/29/18 09:38 Dose: 20 mg Polyethylene Glycol (Miralax (For Daily Use) -) 17 gm PO DAILY [facility] Last Admin: 04/29/18 11:52 Dose: 17 gm Senna (Senna -) 1 tab PO [facility] Spironolactone (Aldactone -) 25 mg PO DAILY [facility] Last Admin: 04/29/18 09:39 Dose: 25 mg - Objective Vital Signs: Vital Signs Temperature 98.3 F 04/29/18 18:23 Pulse Rate 86 04/29/18 18:23 Respiratory Rate 18 04/29/18 18:23 Blood Pressure 124/94 04/29/18 18:23 O2 Sat by Pulse Oximetry (%) 94 L 04/29/18 09:00 Constitutional: Yes: No Distress Cardiovascular: Yes: Regular Rate and Rhythm, S1, S2 Respiratory: Yes: CTA Bilaterally Gastrointestinal: Yes: Normal Bowel Sounds Extremities: Yes: Other (R hand remains swollen Less tender Better ROM Able to clench fist) Labs: CBC, BMP 04/28/18 06:10 04/28/18 06:10 INR, PTT INR 1.22 (0.83-1.09) H 04/25/18 17:05 Assessment/Plan ? catheter- related phlebitis/ bacteremia MRSA Continue vancomycin Repeat BC am Discussed with family at bedside
[2018-04-29] MEDS: SENNOSIDES 8.6MG TABLET (FP) PO SCH (21:31)
[2018-04-29] MEDS: ATORVASTATIN CA 10 MG TABLET (FP) PO SCH (21:31)
[2018-04-29] MEDS: MONTELUKAST NA 10 MG TABLET PO SCH (21:31)
[2018-04-30] MEDS ORDERED: PT OWN MED DRAWER 7, Y5N ONE ×3 (04:58→21:25)
[2018-04-30] MEDS: INSULIN (LEVEMIR) 100 UNITS/ML UNITS SQ SCH (06:08)
[2018-04-30] MEDS: VANCOMYCIN 1,250 MG in DEXTROSE 5%-WATER - 250 ML IVPB SCH ×2 (06:08→18:32)
[2018-04-30] MEDS: INSULIN SLIDING SCALE (NOVOLOG) 1 VIAL SQ SCH ×4 (06:09→21:18)
[2018-04-30] MEDS: HEPARIN NA (PORCINE) 5,000 UNITS/ML 1ML VIAL SQ SCH ×3 (06:10→21:17)
[2018-04-30] MEDS: oxyCODONE HCL 5 MG TABLET PO PRN ×3 (07:23→23:06)
[2018-04-30 07:58] LABS: HEMATOCRIT 43.3 % (32.4-45.2); HEMOGLOBIN 13.9 GM/dL (10.7-15.3); MCH 28.6 pg (25.7-33.7); MCHC 32.1 g/dl (32.0-36.0); MEAN CELL VOLUME 89.1 fl (80-96); MEAN PLT VOLUME 8.2 fl (7.5-11.1); PLATELET COUNT 239 K/MM3 (134-434); RBC 4.86 M/mm3 (3.60-5.2); RDW 16.7 % (11.6-15.6); WHITE BLOOD COUNT 4.7 K/mm3 (4.0-10.0)
[2018-04-30] MEDS ORDERED: INSULIN (LEVEMIR) 100 UNITS/ML UNITS SQ ONE (08:05)
[2018-04-30] MEDS ORDERED: INSULIN (NOVOLOG) ASPART 100 UNITS/ML 10ML VIAL ONE ×2 (08:05→21:06)
[2018-04-30 08:36] LABS: ALBUMIN 2.7 g/dl (3.4-5.0); ANION GAP 8 MMOL/L (8-16); BLOOD UREA NITROGEN 14 mg/dL (7-18); CALCIUM 8.3 mg/dL (8.5-10.1); CHLORIDE 100 mmol/L (98-107); CO2 28 mmol/L (21-32); CREATININE 0.9 mg/dL (0.55-1.3); POTASSIUM 4.4 mmol/L (3.5-5.1); SGOT/AST 15 U/L (15-37); SGPT/ALT 15 U/L (13-61); SODIUM 136 mmol/L (136-145)
[2018-04-30 08:38] LABS: ALK PHOS 200 U/L (45-117); BILIRUBIN,TOTAL 0.7 mg/dL (0.2-1.0); TOT PROT 6.5 g/dl (6.4-8.2)
--- NOTE | 2018-04-30 08:47 | PN ---
Progress Note (short form) - Note Progress Note: Ortho Pt seen and examined- swelling and pain improving Selected Entries 04/30/18 06:00 Temperature 97.5 F L Pulse Rate 83 Respiratory 18 Rate Blood Pressure 130/92 Laboratory Tests 04/30/18 06:20 WBC 4.7 Hgb 13.9 Hct 43.3 Plt Count 239 decr swelling, incr rom, small area of fluctuance over dorsal aspect of wrist, nvi a/p continue abx Dr. Hernandez to evaluate for possible I&D tomorrow afternoon will keep NPO after midnight pain control elevation d/w Dr. Hernandez
[2018-04-30 09:00] LABS: GLUCOSE,RANDOM 307 mg/dL (74-106)
[2018-04-30] MEDS: PANTOPRAZOLE 20 MG TABLET (FP) PO SCH (10:24)
[2018-04-30] MEDS: SPIRONOLACTONE 25 MG TABLET (FP) PO SCH (11:00)
[2018-04-30] MEDS: FUROSEMIDE 40 MG TABLET (FP) PO SCH (11:24)
[2018-04-30] MEDS: CARVEDILOL 6.25 MG TABLET (FP) PO SCH ×2 (11:24→21:19)
[2018-04-30] MEDS: LOSARTAN POTASSIUM 25 MG TABLET PO SCH (12:24)
[2018-04-30] MEDS: PATIENT'S OWN MEDICATION (NON-FORMULARY) (Linaclotide [Linzess] 145 MCG) PO SCH (12:24)
[2018-04-30] MEDS: POLYETHYLENE GLYCOL 3350 119 GM BTL PO SCH ×2 (12:25→18:45)
--- NOTE | 2018-04-30 13:56 | PN ---
Progress Note, Physician History of Present Illness: Reports less hand pain/ swelling No c/o fever/ chills Tolerating antibiotic - Current Medication List Current Medications: Active Medications Albuterol/Ipratropium (Duoneb -) 1 amp NEB Q4H PRN PRN Reason: ASTHMA Last Admin: 04/29/18 20:58 Dose: 1 amp Atorvastatin Calcium (Lipitor -) 10 mg PO [facility] Last Admin: 04/29/18 21:31 Dose: 10 mg Carvedilol (Coreg -) 6.25 mg PO BID [facility] Last Admin: 04/30/18 11:24 Dose: 6.25 mg Furosemide (Lasix -) 40 mg PO DAILY [facility] Last Admin: 04/30/18 11:24 Dose: 40 mg Guaifenesin (Robitussin -) 10 ml PO Q4H PRN PRN Reason: COUGH Last Admin: 04/29/18 21:32 Dose: 10 ml Heparin Sodium (Porcine) (Heparin -) 5,000 unit SQ TID [facility] Last Admin: 04/30/18 06:10 Dose: 5,000 unit Vancomycin HCl 1,250 mg/ (Dextrose) 250 mls @ 166.667 mls/hr IVPB BID@0500, 1700 [facility]; Protocol Last Admin: 04/30/18 06:08 Dose: 166.667 mls/hr Ibuprofen (Motrin -) 400 mg PO Q6H PRN PRN Reason: FEVER Insulin Aspart (Novolog Vial Sliding Scale -) 1 vial SQ ACHS [facility]; Protocol Last Admin: 04/30/18 13:31 Dose: 4 units Insulin Detemir (Levemir Vial) 20 units SQ ACBK [facility] Last Admin: 04/30/18 06:08 Dose: 20 units Losartan Potassium (Cozaar -) 25 mg PO DAILY [facility] Last Admin: 04/30/18 12:24 Dose: 25 mg Magnesium Hydroxide (Milk Of Magnesia -) 30 ml PO Q8H PRN PRN Reason: INDIGESTION Montelukast Sodium (Singulair -) 10 mg PO HS [facility] Last Admin: 04/29/18 21:31 Dose: 10 mg Non-Formulary Medication (Linaclotide [Linzess]) 145 mcg PO DAILY [facility] Last Admin: 04/30/18 12:24 Dose: 145 mcg Oxycodone HCl (Roxicodone -) 10 mg PO Q4H PRN PRN Reason: PAIN LEVEL 6-10 Last Admin: 04/30/18 07:23 Dose: 10 mg Pantoprazole Sodium (Protonix -) 20 mg PO DAILY [facility] Last Admin: 04/30/18 10:24 Dose: 20 mg Polyethylene Glycol (Miralax (For Daily Use) -) 17 gm PO DAILY [facility] Last Admin: 04/30/18 12:25 Dose: Not Given Senna (Senna -) 1 tab PO HS [facility] Last Admin: 04/29/18 21:31 Dose: 1 tab Spironolactone (Aldactone -) 25 mg PO DAILY [facility] Last Admin: 04/30/18 11:00 Dose: 25 mg - Objective Vital Signs: Vital Signs Temperature 98 F 04/30/18 12:29 Pulse Rate 87 04/30/18 12:29 Respiratory Rate 18 04/30/18 12:29 Blood Pressure 136/98 04/30/18 12:29 O2 Sat by Pulse Oximetry (%) 94 L 04/29/18 21:00 Constitutional: Yes: No Distress Eyes: Yes: Conjunctiva Clear Cardiovascular: Yes: Regular Rate and Rhythm, S1, S2 Respiratory: Yes: CTA Bilaterally Gastrointestinal: Yes: Normal Bowel Sounds, Soft. No: Tenderness Extremities: Yes: Other (+ swelling, dorsum of hand. Approx 2cm fluctuant swelling, dorsum of wrist.) Labs: CBC, BMP 04/30/18 06:20 04/30/18 06:20 INR, PTT INR 1.22 (0.83-1.09) H 04/25/18 17:05 Assessment/Plan ? catheter- related phlebitis/ bacteremia MRSA Abscess formation Continue vancomycin Repeat BC pending Surgical follow up appreciated For I&D
[2018-04-30] MEDS: ALBUTEROL SO4 2.5/IPRATROPIUM 0.5 INH SOL 3 ML VIAL.NEB. NEB PRN (19:19)
[2018-04-30] MEDS: ATORVASTATIN CA 10 MG TABLET (FP) PO SCH (21:19)
[2018-04-30] MEDS: MONTELUKAST NA 10 MG TABLET PO SCH (21:19)
[2018-04-30] MEDS: SENNOSIDES 8.6MG TABLET (FP) PO SCH (21:20)
[2018-04-30] MEDS: guaiFENesin 200 MG/10 ML 10 ML UNIT-DOSE CUPS PO PRN (21:20)
--- NOTE | 2018-04-30 22:20 | PN ---
Progress Note, Physician Chief Complaint: right arm cellulitis History of Present Illness: NAD wants to go home right Forearm swelling improved on IV vanco - Current Medication List Current Medications: Active Medications Albuterol/Ipratropium (Duoneb -) 1 amp NEB Q4H PRN PRN Reason: ASTHMA Last Admin: 04/30/18 19:19 Dose: 1 amp Atorvastatin Calcium (Lipitor -) 10 mg PO [facility] Last Admin: 04/30/18 21:19 Dose: 10 mg Carvedilol (Coreg -) 6.25 mg PO BID [facility] Last Admin: 04/30/18 21:19 Dose: 6.25 mg Furosemide (Lasix -) 40 mg PO DAILY [facility] Last Admin: 04/30/18 11:24 Dose: 40 mg Guaifenesin (Robitussin -) 10 ml PO Q4H PRN PRN Reason: COUGH Last Admin: 04/30/18 21:20 Dose: 10 ml Heparin Sodium (Porcine) (Heparin -) 5,000 unit SQ TID [facility] Last Admin: 04/30/18 21:17 Dose: 5,000 unit Vancomycin HCl 1,250 mg/ (Dextrose) 250 mls @ 166.667 mls/hr IVPB BID@0500, 1700 [facility]; Protocol Last Admin: 04/30/18 18:32 Dose: 166.667 mls/hr Ibuprofen (Motrin -) 400 mg PO Q6H PRN PRN Reason: FEVER Insulin Aspart (Novolog Vial Sliding Scale -) 1 vial SQ ACHS [facility]; Protocol Last Admin: 04/30/18 21:18 Dose: 4 units Insulin Detemir (Levemir Vial) 20 units SQ ACBK [facility] Last Admin: 04/30/18 06:08 Dose: 20 units Losartan Potassium (Cozaar -) 25 mg PO DAILY [facility] Last Admin: 04/30/18 12:24 Dose: 25 mg Magnesium Hydroxide (Milk Of Magnesia -) 30 ml PO Q8H PRN PRN Reason: INDIGESTION Montelukast Sodium (Singulair -) 10 mg PO HS [facility] Last Admin: 04/30/18 21:19 Dose: 10 mg Non-Formulary Medication (Linaclotide [Linzess]) 145 mcg PO DAILY [facility] Last Admin: 04/30/18 12:24 Dose: 145 mcg Oxycodone HCl (Roxicodone -) 10 mg PO Q4H PRN PRN Reason: PAIN LEVEL 6-10 Last Admin: 04/30/18 18:49 Dose: 10 mg Pantoprazole Sodium (Protonix -) 20 mg PO DAILY [facility] Last Admin: 04/30/18 10:24 Dose: 20 mg Polyethylene Glycol (Miralax (For Daily Use) -) 17 gm PO DAILY [facility] Last Admin: 04/30/18 18:45 Dose: 17 gm Senna (Senna -) 1 tab PO [facility] Last Admin: 04/30/18 21:20 Dose: Not Given Spironolactone (Aldactone -) 25 mg PO DAILY [facility] Last Admin: 04/30/18 11:00 Dose: 25 mg - Objective Vital Signs: Vital Signs Temperature 98.1 F 04/30/18 18:00 Pulse Rate 88 04/30/18 18:00 Respiratory Rate 20 04/30/18 18:00 Blood Pressure 141/78 04/30/18 18:00 O2 Sat by Pulse Oximetry (%) 94 L 04/30/18 09:00 Constitutional: Yes: Well Nourished, No Distress, Calm Gastrointestinal: Yes: Normal Bowel Sounds, Soft Musculoskeletal: Yes: WNL Extremities: Yes: WNL Edema: No Peripheral Pulses WNL: Yes Wound/Incision: Yes: Clean/Dry, Well Approximated, Open to air Neurological: Yes: Alert, Oriented Psychiatric: Yes: Alert, Oriented Labs: CBC, BMP 04/30/18 06:20 04/30/18 06:20 INR, PTT INR 1.22 (0.83-1.09) H 04/25/18 17:05 Problem List - Problems (1) MRSA bacteremia Assessment/Plan: -ID on borad -IV vancomycin BID -Repeat BC pending -Needs PICC and IV abx for 4-6 weeks Code(s): R78.81 - BACTEREMIA (2) Thrombophlebitis of upper extremity Assessment/Plan: -looks much better -No I&D indicated -Seen by ortho and ID -IV abx Code(s): I80.8 - PHLEBITIS AND THROMBOPHLEBITIS OF OTHER SITES (3) Diabetes Assessment/Plan: -BGM AC HS -diabetic diet -Insulin -last A1c at 8.6 Code(s): E11.9 - TYPE 2 DIABETES MELLITUS WITHOUT COMPLICATIONS Qualifiers: Diabetes mellitus type: type 1 Diabetes mellitus complication status: with hyperglycemia Qualified Code(s): E10.65 - Type 1 diabetes mellitus with hyperglycemia Assessment/Plan see problem list
[2018-05-01] MEDS: VANCOMYCIN 1,250 MG in DEXTROSE 5%-WATER - 250 ML IVPB SCH ×2 (06:18→17:52)
[2018-05-01] MEDS: INSULIN (LEVEMIR) 100 UNITS/ML UNITS SQ SCH (06:19)
[2018-05-01] MEDS: HEPARIN NA (PORCINE) 5,000 UNITS/ML 1ML VIAL SQ SCH ×3 (06:19→21:23)
[2018-05-01] MEDS: INSULIN SLIDING SCALE (NOVOLOG) 1 VIAL SQ SCH ×4 (06:20→21:24)
[2018-05-01] MEDS: guaiFENesin 200 MG/10 ML 10 ML UNIT-DOSE CUPS PO PRN ×2 (06:35→10:43)
[2018-05-01] MEDS ORDERED: INSULIN (NOVOLOG) ASPART 100 UNITS/ML 10ML VIAL ONE ×2 (06:58→20:28)
[2018-05-01] MEDS: LOSARTAN POTASSIUM 25 MG TABLET PO SCH (09:57)
[2018-05-01] MEDS: PANTOPRAZOLE 20 MG TABLET (FP) PO SCH (09:57)
[2018-05-01] MEDS: PATIENT'S OWN MEDICATION (NON-FORMULARY) (Linaclotide [Linzess] 145 MCG) PO SCH (09:58)
[2018-05-01] MEDS: SPIRONOLACTONE 25 MG TABLET (FP) PO SCH (09:58)
[2018-05-01] MEDS: FUROSEMIDE 40 MG TABLET (FP) PO SCH (09:58)
[2018-05-01] MEDS: CARVEDILOL 6.25 MG TABLET (FP) PO SCH ×2 (09:58→21:23)
[2018-05-01] MEDS: ALBUTEROL SO4 2.5/IPRATROPIUM 0.5 INH SOL 3 ML VIAL.NEB. NEB PRN ×2 (10:40→20:46)
[2018-05-01] MEDS: POLYETHYLENE GLYCOL 3350 119 GM BTL PO SCH (10:43)
--- NOTE | 2018-05-01 11:54 | PN ---
Progress Note, Physician Chief Complaint: right arm cellulitis History of Present Illness: NAD wants to go home right Forearm swelling improved on IV vanco I&D at bedside not done yet - Current Medication List Current Medications: Active Medications Albuterol/Ipratropium (Duoneb -) 1 amp NEB Q4H PRN PRN Reason: ASTHMA Last Admin: 04/30/18 19:19 Dose: 1 amp Atorvastatin Calcium (Lipitor -) 10 mg PO HS [facility] Last Admin: 04/30/18 21:19 Dose: 10 mg Carvedilol (Coreg -) 6.25 mg PO BID [facility] Last Admin: 05/01/18 09:58 Dose: 6.25 mg Furosemide (Lasix -) 40 mg PO DAILY [facility] Last Admin: 05/01/18 09:58 Dose: 40 mg Guaifenesin (Robitussin -) 10 ml PO Q4H PRN PRN Reason: COUGH Last Admin: 05/01/18 10:43 Dose: 10 ml Heparin Sodium (Porcine) (Heparin -) 5,000 unit SQ TID [facility] Last Admin: 05/01/18 06:19 Dose: 5,000 unit Vancomycin HCl 1,250 mg/ (Dextrose) 250 mls @ 166.667 mls/hr IVPB BID@0500, 1700 [facility]; Protocol Last Admin: 05/01/18 06:18 Dose: 166.667 mls/hr Ibuprofen (Motrin -) 400 mg PO Q6H PRN PRN Reason: FEVER Last Admin: 05/01/18 06:36 Dose: 400 mg Insulin Aspart (Novolog Vial Sliding Scale -) 1 vial SQ ACHS [facility]; Protocol Last Admin: 05/01/18 11:32 Dose: 6 units Insulin Detemir (Levemir Vial) 20 units SQ ACBK [facility] Last Admin: 05/01/18 06:19 Dose: 20 units Losartan Potassium (Cozaar -) 25 mg PO DAILY [facility] Last Admin: 05/01/18 09:57 Dose: 25 mg Magnesium Hydroxide (Milk Of Magnesia -) 30 ml PO Q8H PRN PRN Reason: INDIGESTION Last Admin: 05/01/18 06:35 Dose: 30 ml Montelukast Sodium (Singulair -) 10 mg PO HS [facility] Last Admin: 04/30/18 21:19 Dose: 10 mg Non-Formulary Medication (Linaclotide [Linzess]) 145 mcg PO DAILY [facility] Last Admin: 05/01/18 09:58 Dose: 145 mcg Oxycodone HCl (Roxicodone -) 10 mg PO Q4H PRN PRN Reason: PAIN LEVEL 6-10 Last Admin: 04/30/18 23:06 Dose: 10 mg Pantoprazole Sodium (Protonix -) 20 mg PO DAILY [facility] Last Admin: 05/01/18 09:57 Dose: 20 mg Polyethylene Glycol (Miralax (For Daily Use) -) 17 gm PO DAILY [facility] Last Admin: 05/01/18 10:43 Dose: 17 gm Senna (Senna -) 1 tab PO HS [facility] Last Admin: 04/30/18 21:20 Dose: Not Given Spironolactone (Aldactone -) 25 mg PO DAILY [facility] Last Admin: 05/01/18 09:58 Dose: 25 mg - Objective Vital Signs: Vital Signs Temperature 97.6 F 05/01/18 10:00 Pulse Rate 86 05/01/18 10:00 Respiratory Rate 18 05/01/18 10:00 Blood Pressure 145/82 05/01/18 10:00 O2 Sat by Pulse Oximetry (%) 94 L 04/30/18 21:00 Constitutional: Yes: Well Nourished, No Distress, Calm Cardiovascular: Yes: Regular Rate and Rhythm Respiratory: Yes: Regular Gastrointestinal: Yes: Normal Bowel Sounds, Soft Musculoskeletal: Yes: WNL Extremities: Yes: WNL Wound/Incision: Yes: Clean/Dry, Well Approximated, Open to air Neurological: Yes: Alert, Oriented Psychiatric: Yes: Alert, Oriented Labs: CBC, BMP 04/30/18 06:20 04/30/18 06:20 INR, PTT INR 1.22 (0.83-1.09) H 04/25/18 17:05 Problem List - Problems (1) MRSA bacteremia Assessment/Plan: -ID on borad -IV vancomycin BID -Repeat BC pending -Needs PICC and IV abx for 4-6 weeks Code(s): R78.81 - BACTEREMIA (2) Thrombophlebitis of upper extremity Assessment/Plan: -looks much better -No I&D indicated -Seen by ortho and ID -IV abx Code(s): I80.8 - PHLEBITIS AND THROMBOPHLEBITIS OF OTHER SITES (3) Diabetes Assessment/Plan: -BGM AC HS -diabetic diet -Insulin -last A1c at 8.6 Code(s): E11.9 - TYPE 2 DIABETES MELLITUS WITHOUT COMPLICATIONS Qualifiers: Diabetes mellitus type: type 1 Diabetes mellitus complication status: with hyperglycemia Qualified Code(s): E10.65 - Type 1 diabetes mellitus with hyperglycemia Assessment/Plan see problem list
--- NOTE | 2018-05-01 15:36 | PN ---
Progress Note (short form) - Note Progress Note: Pt seen and examined again. She states her right wrist and hand pain are dramatically improved. I agree, it looks much better. No erythema, min swelling , not hot, minimally tender. No need for an open I&D. Rec Con't antibiotic regimen Can DC from an ortho pov
[2018-05-01] MEDS ORDERED: PT OWN MED DRAWER 7, Y5N ONE (20:27)
[2018-05-01] MEDS: oxyCODONE HCL 5 MG TABLET PO PRN (21:21)
[2018-05-01] MEDS: ATORVASTATIN CA 10 MG TABLET (FP) PO SCH (21:23)
[2018-05-01] MEDS: MONTELUKAST NA 10 MG TABLET PO SCH (21:24)
[2018-05-01] MEDS: SENNOSIDES 8.6MG TABLET (FP) PO SCH (21:24)
[2018-05-02] MEDS: VANCOMYCIN 1,250 MG in DEXTROSE 5%-WATER - 250 ML IVPB SCH (05:05)
[2018-05-02] MEDS: guaiFENesin 200 MG/10 ML 10 ML UNIT-DOSE CUPS PO PRN (05:05)
[2018-05-02] MEDS: ALBUTEROL SO4 2.5/IPRATROPIUM 0.5 INH SOL 3 ML VIAL.NEB. NEB PRN ×2 (05:12→16:57)
[2018-05-02] MEDS: INSULIN (LEVEMIR) 100 UNITS/ML UNITS SQ SCH (06:31)
[2018-05-02] MEDS: HEPARIN NA (PORCINE) 5,000 UNITS/ML 1ML VIAL SQ SCH ×2 (06:33→15:57)
[2018-05-02] MEDS: INSULIN SLIDING SCALE (NOVOLOG) 1 VIAL SQ SCH ×3 (06:33→16:50)
[2018-05-02] MEDS ORDERED: INSULIN (NOVOLOG) ASPART 100 UNITS/ML 10ML VIAL ONE (06:45)
[2018-05-02] MEDS ORDERED: PT OWN MED DRAWER 7, Y5N ONE (09:46)
[2018-05-02] MEDS: SPIRONOLACTONE 25 MG TABLET (FP) PO SCH (09:56)
[2018-05-02] MEDS: CARVEDILOL 6.25 MG TABLET (FP) PO SCH (09:57)
[2018-05-02] MEDS: LOSARTAN POTASSIUM 25 MG TABLET PO SCH (09:57)
[2018-05-02] MEDS: PANTOPRAZOLE 20 MG TABLET (FP) PO SCH (09:59)
[2018-05-02] MEDS: FUROSEMIDE 40 MG TABLET (FP) PO SCH (09:59)
[2018-05-02] MEDS: POLYETHYLENE GLYCOL 3350 119 GM BTL PO SCH (10:00)
[2018-05-02] MEDS: PATIENT'S OWN MEDICATION (NON-FORMULARY) (Linaclotide [Linzess] 145 MCG) PO SCH (10:00)
[2018-05-02] MEDS: oxyCODONE HCL 5 MG TABLET PO PRN (10:06)
[2018-05-02] MEDS ORDERED: PICC LINE 8 ML FLUSH PROTOCOL IVPUSH PRN (10:28)
--- NOTE | 2018-05-02 10:31 | DS ---
Physical Examination Vital Signs: Vital Signs Temperature 98.2 F 05/02/18 06:00 Pulse Rate 81 05/02/18 06:00 Respiratory Rate 18 05/02/18 06:00 Blood Pressure 133/90 05/02/18 06:00 O2 Sat by Pulse Oximetry (%) 96 05/01/18 21:00 Findings/Remarks: This is a 58 year old female with a significant past medical history of DM, HTN , HLD, asthma who presented to the ED with right arm pain and swelling since awakening 04/25. She was discharged 04/24 after a brief hospitalization for hypoglycemia and CHF. She reports that she had IVs placed in her right arm. Constitutional: Yes: Well Nourished, No Distress, Calm Cardiovascular: Yes: Regular Rate and Rhythm Respiratory: Yes: Regular Gastrointestinal: Yes: Normal Bowel Sounds, Soft Musculoskeletal: Yes: WNL Extremities: Yes: Other (Right forearm mild swelling) Edema: No Peripheral Pulses WNL: Yes Wound/Incision: Yes: Clean/Dry, Well Approximated, Open to air Neurological: Yes: Alert, Oriented Psychiatric: Yes: Alert, Oriented Labs: CBC, BMP 04/30/18 06:20 04/30/18 06:20 Discharge Summary Reason For Visit: THROMBOPHLEBITIS OF UPPER EXTREMITY Current Active Problems COPD (chronic obstructive pulmonary disease) (Acute) MRSA bacteremia (Acute) Phlebitis (Acute) Thrombophlebitis of upper extremity (Acute) Condition: Stable - Instructions Diet, Activity, Other Instructions: Vancomycin 1250 mg IVPB 2 x day for 3 weeks CBC/CMP once a week [place] Weekly Disposition: VNS/HOME HEALTH CARE - Home Medications Comprehensive Discharge Medication List: Ambulatory Orders Albuterol 2.5/Ipratropium 0.5 [Duoneb -] 1 neb NEB Q4H PRN #180 amp 05/03/17 Atorvastatin Ca [Lipitor] 10 mg PO HS #30 tab 05/03/17 Linaclotide [Linzess] 145 mcg PO DAILY #30 cap 05/03/17 Montelukast Na [Singulair -] 10 mg PO HS #30 tab 05/03/17 Esomeprazole Magnesium [Nexium 24Hr] 20 mg PO DAILY 04/20/18 Carvedilol [Coreg -] 6.25 mg PO BID #60 tablet 04/24/18 Furosemide [Lasix -] 40 mg PO DAILY #30 tablet 04/24/18 Insulin (Levemir) [Levemir Vial] 15 units SQ ACBK units 04/24/18 Insulin Sliding Scale [Novolog Vial Sliding Scale -] 1 vial SQ HS units Losartan Potassium [Cozaar -] 25 mg PO DAILY #30 tablet 04/24/18 Spironolactone [Aldactone -] 25 mg PO DAILY #30 tablet 04/24/18 Guaifenesin [Robitussin -] 10 ml PO Q4H PRN #1 bottle 05/02/18 Magnesium Hydrox 2400MG/30Ml [Milk of Magnesia -] 30 ml PO Q8H PRN #1 bot Polyethylene Glycol 3350 [Miralax 119 gm Btl -] 17 gm PO DAILY #1 bottle Sennosides [Senna -] 1 tab PO HS #30 tablet 05/02/18 Vancomycin 1,250 mg IVPB BID@0500,1700 #70 vial 05/02/18 oxyCODONE HCL [Roxicodone -] 10 mg PO Q4H PRN #30 tablet MDD 6 05/02/18
--- NOTE | 2018-05-02 11:15 | PN ---
Progress Note (short form) - Note Progress Note: Ortho Pt seen and examined- swelling and pain improving Selected Entries 05/02/18 06:00 Temperature 98.2 F Pulse Rate 81 Respiratory 18 Rate Blood Pressure 133/90 Laboratory Tests 04/30/18 06:20 WBC 4.7 Hgb 13.9 Hct 43.3 Plt Count 239 decr pain,decr swelling, incr rom, nvi a/p continue abx as per ID ROM exercises no surgical intervention d/c planning d/w Dr. Hernandez
[2018-05-02 15:34] VITALS: BP 145/99; PULSE 81; TEMP 97.8
== END 2018-05-02 17:14 | disposition home health service (06) | DRG 868 ==
LOC: JER 12:05 → JERBED 16:32 → UNDOADMIN 16:32 → J5S 19:35 → JERBED 19:35 → J5S 23:43 → JERBED 23:43 → INTOOBSV 23:43 → J5S 04-26 12:53 → OBSVTOIN 04-27 14:53
PROVIDERS: ADMIT Family Medicine; ATTEND Family Medicine
PROC: 02HV33Z Insertion of Infusion Device into Superior Vena Cava, Percutaneous Approach (ICD-10-PCS; principal; 2018-05-02)
PROC: B518ZZA Fluoroscopy of Superior Vena Cava, Guidance (ICD-10-PCS; 2018-05-02)
DX: T80.22XA Acute infection following transfusion, infusion, or injection of blood and blood products, initial encounter (principal); L03.113 Cellulitis of right upper limb; I50.22 Chronic systolic (congestive) heart failure; I42.8 Other cardiomyopathies; R78.81 Bacteremia; I82.611 Acute embolism and thrombosis of superficial veins of right upper extremity; E11.9 Type 2 diabetes mellitus without complications; E78.5 Hyperlipidemia, unspecified; I11.0 Hypertensive heart disease with heart failure; Z79.4 Long term (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 of insulin; J44.9 Chronic obstructive pulmonary disease, unspecified; Y83.8 Other surgical procedures as the cause of abnormal reaction of the patient, or of later complication, without mention of misadventure at the time of the procedure; B95.62 Methicillin resistant Staphylococcus aureus infection as the cause of diseases classified elsewhere
CPT/HCPCS: 36415; 36569; 73110-TC-RT-FY; 73130-TC-RT-FY; 77001-TC-FY; 80048; 80053; 81003; 81015; 82962; 83605; 83735; 84100; 85025; 85027; 85610; 87040; 87186; 93306-TC; 93971; 94640; 99284-25; C1751; G0378; G0480; J1644; J7620

== ENCOUNTER 2018-09-19 16:39 | Inpatient (IN) | payer OTHER ==
--- NOTE | 2018-09-19 17:05 | PDOC ---
Rapid Medical Evaluation Chief Complaint: Shortness of Breath Time Seen by Provider: 09/19/18 16:56 Medical Evaluation: Allergies Allergy/AdvReac Type Severity Reaction Status Date / Time No Known Allergies Allergy Verified 09/19/18 16:55 09/19/18 16:58 I have performed a brief in-person evaluation of this patient. The patient presents with a chief complaint of:worsening sob w/ edema and cough x 1 week[address] Sent in By Dr Oscar (pul) "fluid on her lungs" on CXR today per daughter. H/o COPD on oxygen, CHF on lasix, HTN, HLD, IDDM Pertinent physical exam findings:Stable I have ordered the following:ekg/cxr/labs The patient will proceed to the ED for further evaluation. 09/19/18 17:05 Discharge Disposition - Diagnosis SOB (shortness of breath) - Referrals Referrals: Ronnie Oscar MD [Primary Care Provider] - - Patient Instructions - Post Discharge Activity
[2018-09-19 18:32] LABS: BASO % 0.4 % (0-2.0); EOS % 0.1 % (0-4.5); HEMATOCRIT 48.6 % (32.4-45.2); HEMOGLOBIN 15.8 GM/dL (10.7-15.3); LYMPH % 7.8 % (8-40); MCH 30.6 pg (25.7-33.7); MCHC 32.5 g/dl (32.0-36.0); MEAN CELL VOLUME 94.3 fl (80-96); MEAN PLT VOLUME 7.9 fl (7.5-11.1); MONO % 6.4 % (3.8-10.2); NEUT % 85.3 % (42.8-82.8); PLATELET COUNT 324 K/MM3 (134-434); RBC 5.15 M/mm3 (3.60-5.2); RDW 18.6 % (11.6-15.6); WHITE BLOOD COUNT 8.6 K/mm3 (4.0-10.0)
[2018-09-19 19:09] LABS: ALBUMIN 2.9 g/dl (3.4-5.0); ALK PHOS 274 U/L (45-117); ANION GAP 7 MMOL/L (8-16); BILIRUBIN,TOTAL 0.5 mg/dL (0.2-1); BLOOD UREA NITROGEN 25 mg/dL (7-18); CALCIUM 8.1 mg/dL (8.5-10.1); CHLORIDE 102 mmol/L (98-107); CO2 28 mmol/L (21-32); CREATININE 1.5 mg/dL (0.55-1.3); N-TERMINAL BNP 4314.4 pg/ml (5-125); POTASSIUM 4.5 mmol/L (3.5-5.1); SGOT/AST 27 U/L (15-37); SGPT/ALT 36 U/L (13-61); SODIUM 137 mmol/L (136-145); TOT PROT 6.6 g/dl (6.4-8.2)
[2018-09-19 19:40] LABS: GLUCOSE,RANDOM 461 mg/dL (74-106)
--- NOTE | 2018-09-19 20:12 | PDOC ---
History of Present Illness - General Chief Complaint: Shortness of Breath Stated Complaint: REF. DOCTOR Time Seen by Provider: 09/19/18 16:56 History Source: Patient Exam Limitations: No Limitations - History of Present Illness Initial Comments: 58 yo F with a hx of COPD on 2.5 liters of home O2, CHF on lasix, HTN, HLD, and IDDM presents to the emergency department with worsening SOB and bilateral leg swelling over 2 days. Per the patient, she has been having increased use of her albuterol and ran out of her home O2. She was recently evaluated by her metal fabricating inspector Dr. Oscar who sent her into the ED for evaluation of COPD vs CHF exacerbation with congestive changes on CXR. Per the patient, she is compliant with her medications. Denies the following: fever, chills, nausea, vomiting, chest pain, ears/nose/throat pain, abdominal pain, dysuria, hematuria , diarrhea, and melena. Shx: cholecystectomy Meds: lasix and insulin Allergies: NKDA Social: Endorses 1 cigarette per day, denies alcohol and substance abuse. Past History - Past Medical History Allergies/Adverse Reactions: Allergies Allergy/AdvReac Type Severity Reaction Status Date / Time No Known Allergies Allergy Verified 09/19/18 16:55 Home Medications: Ambulatory Orders Albuterol 2.5/Ipratropium 0.5 [Duoneb -] 1 neb NEB Q4H PRN #180 amp 05/03/17 Atorvastatin Ca [Lipitor] 10 mg PO HS #30 tab 05/03/17 Linaclotide [Linzess] 145 mcg PO DAILY #30 cap 05/03/17 Montelukast Na [Singulair -] 10 mg PO HS #30 tab 05/03/17 Esomeprazole Magnesium [Nexium 24Hr] 20 mg PO DAILY 04/20/18 Carvedilol [Coreg -] 6.25 mg PO BID #60 tablet 04/24/18 Furosemide [Lasix -] 40 mg PO DAILY #30 tablet 04/24/18 Insulin (Levemir) [Levemir Vial] 15 units SQ ACBK units 04/24/18 Insulin Sliding Scale [Novolog Vial Sliding Scale -] 1 vial SQ HS units Losartan Potassium [Cozaar -] 25 mg PO DAILY #30 tablet 04/24/18 Spironolactone [Aldactone -] 25 mg PO DAILY #30 tablet 04/24/18 Guaifenesin [Robitussin -] 10 ml PO Q4H PRN #1 bottle 05/02/18 Magnesium Hydrox 2400MG/30Ml [Milk of Magnesia -] 30 ml PO Q8H PRN #1 bot Polyethylene Glycol 3350 [Miralax 119 gm Btl -] 17 gm PO DAILY #1 bottle Sennosides [Senna -] 1 tab PO HS #30 tablet 05/02/18 Vancomycin 1,250 mg IVPB BID@0500,1700 #70 vial 05/02/18 Dapagliflozin Propanediol [Farxiga] 10 mg PO DAILY 09/20/18 Farxiga 10 mg PO DAILY 09/21/18 Xanax 2 mg PO BID 09/21/18 oxyCODONE HCL [Roxicodone -] 10 mg PO Q6H PRN MDD 6 09/21/18 Asthma: Yes Cancer: No COPD: Yes CHF: Yes DVT: No Diabetes: Yes GI Disorders: No Disorders: No HTN: Yes Hypercholesterolemia: Yes Liver Disease: No Thyroid Disease: No - Surgical History Cholecystectomy: Yes Orthopedic Surgery: (lt shoulder repair) - Immunization History Immunization Up to Date: Yes - Suicide/Smoking/Psychosocial Hx Smoking History: Current every day smoker Have you smoked in the past 12 months: Yes Number of Cigarettes Smoked Daily: 10 If you are a former smoker, when did you quit?: 1 month ago Cigars Per Day: 0 Information on smoking cessation initiated: No 'Breaking Loose' booklet given: 04/25/18 Hx Alcohol Use: No Drug/Substance Use Hx: No Substance Use Type: None Hx Substance Use Treatment: No Review of Systems - Review of Systems Able to Perform ROS?: Yes Is the patient limited Maltese proficient: No Constitutional: No: Chills, Diaphoresis, Fever, Weakness HEENTM: No: Blurred Vision, Recent change in vision, Ear Pain, Nose Pain, Throat Pain, Mouth Pain Respiratory: Yes: SOB with Exertion, SOB at Rest, Wheezing. No: Cough, Hemoptysis Cardiac (ROS): No: Chest Pain, Lightheadedness, Palpitations, Syncope, Chest Tightness ABD/GI: No: Constipated, Diarrhea, Nausea, Rectal Bleeding, Vomiting, Tarry Stools : No: Burning, Dysuria, Frequency, Hematuria Musculoskeletal: No: Gout, Joint Pain, Neck Pain Integumentary: No: Erythema, Rash Neurological: Yes: Headache. No: Numbness, Tingling, Tremors, Ataxia, Dizziness Psychiatric: No: Change in Appetite Endocrine: No: Unexplained Weight Gain Hematologic/Lymphatic: No: Anemia *Physical Exam - Vital Signs Last Vital Signs Temp Pulse Resp BP Pulse Ox 98.1 F 94 H 26 H 158/110 H 96 09/19/18 16:57 09/19/18 16:57 09/19/18 16:57 09/19/18 16:57 09/19/18 16:57 - Physical Exam General Appearance: Yes: Nourished, Appropriately Dressed. No: Apparent Distress, Intoxicated HEENT: positive: EOMI, REESE, Normal Voice, Symmetrical, Pharynx Normal, Hearing Grossly Normal. negative: Pale Conjunctivae, Scleral Icterus (R), Scleral Icterus (L), Muffled/Hoarse voice, Pharyngeal Erythema, Tonsillar Exudate, Tonsillar Erythema, Nasal Congestion, Rhinorrhea, Excessive drooling Neck: positive: Trachea midline, Supple. negative: Tender, Lymphadenopathy (R) , Lymphadenopathy (L), Tender lateral, Tender midline Respiratory/Chest: positive: Rapid RR, Crackles, Wheezing. negative: Chest Tender, Lungs Clear, Normal Breath Sounds, Accessory Muscle Use Cardiovascular: positive: Regular Rhythm, Regular Rate, S1, S2. negative: Systolic Murmur Gastrointestinal/Abdominal: positive: Normal Bowel Sounds, Soft, Distended. negative: Tender Lymphatic: negative: Adenopathy Musculoskeletal: positive: Normal Inspection. negative: CVA Tenderness, Vertebral Tenderness Extremity: positive: Normal Capillary Refill, Normal Range of Motion, Pedal Edema, Swelling (2+ pitting edema bilaterally up to the thigh). negative: Normal Inspection Integumentary: positive: Normal Color, Dry, Warm Neurologic: positive: market development analyst II-XII NML intact, Fully Oriented, Alert, Normal Mood/ Affect, Normal Response, Motor Strength 5/5. negative: EOM Palsy, Facial Droop , Sensory Deficit Moderate Sedation - Procedure Monitoring Vital Signs: Procedure Monitoring Vital Signs Temperature 98.1 F 09/19/18 16:57 Pulse Rate 94 H 09/19/18 16:57 Respiratory Rate 26 H 09/19/18 16:57 Blood Pressure 158/110 H 09/19/18 16:57 O2 Sat by Pulse Oximetry (%) 96 09/19/18 16:57 Heart Score/ECG Review - ECG Intrepretation Comment:: ventricular rate is 93 bpm. NH is 166 ms, QRs is 88 ms, QTc is 479 ms. Sinus rhythm with PVCs. Right axis deviation. no st elevations or depressions. ED Treatment Course - LABORATORY CBC & Chemistry Diagram: 09/22/18 06:00 09/22/18 06:00 - ADDITIONAL ORDERS Additional order review: Laboratory Results 09/19/18 18:09 Sodium 137 Potassium 4.5 Chloride 102 Carbon Dioxide 28 Anion Gap 7 L BUN 25 H Creatinine 1.5 H Creat Clearance w eGFR 35.79 Random Glucose 461 H* Calcium 8.1 L Total Bilirubin 0.5 AST 27 ALT 36 Alkaline Phosphatase 274 H Creatine Kinase 79 Troponin I 0.04 B-Natriuretic Peptide 4314.4 H Total Protein 6.6 Albumin 2.9 L 09/19/18 18:09 RBC 5.15 MCV 94.3 MCHC 32.5 RDW 18.6 H MPV 7.9 Neutrophils % 85.3 H D Lymphocytes % 7.8 L D Monocytes % 6.4 Eosinophils % 0.1 D Basophils % 0.4 Medical Decision Making - Medical Decision Making 58 yo F with a hx of COPD on 2.5 liters of home O2, CHF on lasix, HTN, HLD, and IDDM presents to the emergency department with worsening SOB and bilateral leg swelling over 2 days. Initial vitals: Initial Vital Signs Temp Pulse Resp BP Pulse Ox 98.1 F 94 H 26 H 158/110 H 96 09/19/18 16:57 09/19/18 16:57 09/19/18 16:57 09/19/18 16:57 09/19/18 16:57 Work up: ddx: COPD exacerbation vs CHF exacerbation vs ACS vs pleural effusions vs pericardial effusions Laboratory Tests 09/19/18 09/19/18 18:09 18:09 WBC 8.6 RBC 5.15 Hgb 15.8 H Hct 48.6 H MCV 94.3 MCH 30.6 MCHC 32.5 RDW 18.6 H Plt Count 324 D MPV 7.9 Absolute Neuts (auto) 7.3 Neutrophils % 85.3 H D Lymphocytes % 7.8 L D Monocytes % 6.4 Eosinophils % 0.1 D Basophils % 0.4 Nucleated RBC % 0 Sodium 137 Potassium 4.5 Chloride 102 Carbon Dioxide 28 Anion Gap 7 L BUN 25 H Creatinine 1.5 H Creat Clearance w eGFR 35.79 Random Glucose 461 H* Calcium 8.1 L Total Bilirubin 0.5 AST 27 ALT 36 Alkaline Phosphatase 274 H Creatine Kinase 79 Troponin I 0.04 B-Natriuretic Peptide 4314.4 H Total Protein 6.6 Albumin 2.9 L BNP elevated to 4314 with elevation in glucose (461). Patient had a creatinine of 1.5. Patient will be given the follow interventions: Nitroglycerin, lasix 40 mg, and SQ insulin 10 units. CXR has congestive changes noted. insulin reduced BG to 187. will require observation admission. Spoke to Kyara Mckeon who accepted admission. Dispo: Admit *DC/Admit/Observation/Transfer Diagnosis at time of Disposition: SOB (shortness of breath) - Referrals - Patient Instructions - Post Discharge Activity
--- NOTE | 2018-09-19 20:19 | PDOC ---
Attending Attestation - HPI HPI: 09/19/18 20:57 The patient is a 58 year old female with a PMH of COPD on home O2, CHF on lasix , HTN, HLD, and IDDM who presents to the ER with worsening shortness of breath and bilateral leg swelling since yesterday. Patient admits to orthopnea and has been requiring multiple pillows to sleep at night. Patient is also complaining on dyspnea on exertion. Patient states she was seen at [facility] for shortness of breath and was discharged home on O2, but has ran out of it for the past two weeks. Patient followed up with Dr. Oscar, ribbon blocker, yesterday who suggested she come to the ER for further evaluation. The patient denies chest pain, headache and dizziness. Denies fever, chills, nausea, vomit, diarrhea and constipation. Denies dysuria, frequency, urgency and hematuria. Allergies: NKA Past surgical history: None reported. Social history: No reported alcohol, drug, or cigarette use. PCP: Dr. Hsu - Physicial Exam PE: 09/19/18 21:10 ADULT PHYSICAL EXAM Constitutional: Awake, alert, oriented. Head: Normocephalic. Atraumatic Eyes: PERRL. EOMI. Conjunctivae are not pale. ENT: Mucous membranes are moist and intact. Posterior pharynx without exudates or erythema. Uvula midline. Neck: Supple. Full ROM. No lymphadenopathy. Cardiovascular: Regular rate. Regular rhythm. S1, S2 regular. Distal pulses are 2+ and symmetric. Pulmonary/Chest: (+) Diminished, soft rales on bilateral bases. No wheezes or rhonchi. Abdominal: (+) Lower abdominal pitting edema. Soft and non-distended. There is no tenderness. No organomegaly. No palpable masses. Good bowel sounds. Musculoskeletal: (+) 3+ bilateral lower extremity pitting edema. No cyanosis. No clubbing. Full range of motion in all extremities. Nocalf tenderness. Radial/pedal pulses are intact and 2+ bilaterally Skin: Skin is warm and dry. No petechiae. No purpura. Neurological: Alert and oriented to person, place, and time. Cranial nerves II -XII are grossly intact. Strength is grossly symmetric. No sensory deficits. Psychiatric: Good eye contact. Normal interaction, affect and behavior. <Olivier,Lanny - Last Filed: 09/19/18 20:58> - Resident Resident Name: [email or web address] - ED Attending Attestation I have performed the following: I have examined & evaluated the patient, The case was reviewed & discussed with the resident, I agree w/resident's findings & plan, Exceptions are as noted - Medical Decision Making 09/19/18 20:19 I, Dr. Jennifer Herrera, DO, attest that this document has been prepared under my direction and personally reviewed by me in its entirety. I further attest, that it accurately reflects all work, treatment, procedures and medical decision -making performed by me. 09/19/18 20:55 a/p: 58yo female sent from her pulm for eval of sob -orthopnea, pnd, lucero -no fever/chills -R lower cp -swelling to lower abd and legs -concern for chf exacerbation -hypertensive in ED -labs, ekg, cxr -Dr. Oscar is pul -Dr. Hsu is PMD 09/19/18 20:57 elevated bnp cxr shows cephalization and congestion -nitro, lasix ordered -pt will need obs 09/19/18 21:31 resident discussed the case with Kyara Mckeon APN who accepts pt to dr. hsu service <Jennifer Herrera - Last Filed: 09/19/18 21:32> Heart Score/ECG Review - ECG Intrepretation Comment:: 09/19/18 20:37 sinus at 93, R axis deviation, poor r wave progression, qtc 479, no acute st/t wave findings <Jennifer Herrera - Last Filed: 09/19/18 21:32>
[2018-09-19] MEDS ORDERED: NITROGLYCERIN 2% OINTMENT - 1GM PACKET TD ONE (20:40)
[2018-09-19] MEDS ORDERED: FUROSEMIDE 40 MG/4 ML INJECTABLE VIAL IVPUSH ONE (20:41)
[2018-09-19] MEDS ORDERED: INSULIN REGULAR HUMAN 100 UNITS/ML *VIAL SQ ONE (20:43)
--- NOTE | 2018-09-19 22:43 | HP ---
Admitting History and Physical - Primary Care Physician PCP: Ronnie Winkler - Admission Chief Complaint: SOB, Bilateral Leg Swelling, Ran Out of Home O2 History of Present Illness: This is a 58 y/o woman with a PMHx of: HTN, HLD, IDDM, Chronic Systolic CHF (on Lasix), COPD (home O2- 2.5L). Who presents to the ED for increased SOB, [place], B/ L lower extremity edema x 1-2 days. Patient reports having to use her nebulizer more frequently without- relief. She reports running out of her O2. Patient reports having a productive cough with white-yellow phlegm and noted blood tinged sputum which resolved several days ago. Patient denies chest pain, palpitations. Patient denies fever, chills, AP, N/V/D, dysuria. History Source: Patient Limitations to Obtaining History: No Limitations - Past Medical History Cardiovascular: Yes: CHF, HTN, Hyperlipdemia. No: AFIB, CAD Pulmonary: Yes: Asthma, COPD. No: O2 Dependent, Pneumonia, Pulmonary Embolus, Pulmonary Fibrosis, Sleep Apnea Gastrointestinal: Yes: GERD. No: Cancer Renal/: Yes: Renal Inusuff Endocrine: Yes: Diabetes Mellitus - Past Surgical History Additional Past Surgical History: Cardiac Cath 10/2016 - Smoking History Smoking history: Current every day smoker Have you smoked in the past 12 months: Yes Aproximately how many cigarettes per day: 1 - Alcohol/Substance Use Hx Alcohol Use: No History of Substance Use: reports: None - Social History Usual Living Arrangement: Yes: Alone ADL: Independent History of Recent Travel: No Home Medications - Allergies Allergies/Adverse Reactions: Allergies Allergy/AdvReac Type Severity Reaction Status Date / Time No Known Allergies Allergy Verified 09/19/18 16:55 - Home Medications Home Medications: Ambulatory Orders Albuterol 2.5/Ipratropium 0.5 [Duoneb -] 1 neb NEB Q4H PRN #180 amp 05/03/17 Atorvastatin Ca [Lipitor] 10 mg PO HS #30 tab 05/03/17 Linaclotide [Linzess] 145 mcg PO DAILY #30 cap 05/03/17 Montelukast Na [Singulair -] 10 mg PO HS #30 tab 05/03/17 Esomeprazole Magnesium [Nexium 24Hr] 20 mg PO DAILY 04/20/18 Carvedilol [Coreg -] 6.25 mg PO BID #60 tablet 04/24/18 Furosemide [Lasix -] 40 mg PO DAILY #30 tablet 04/24/18 Insulin (Levemir) [Levemir Vial] 15 units SQ ACBK units 04/24/18 Insulin Sliding Scale [Novolog Vial Sliding Scale -] 1 vial SQ HS units Losartan Potassium [Cozaar -] 25 mg PO DAILY #30 tablet 04/24/18 Spironolactone [Aldactone -] 25 mg PO DAILY #30 tablet 04/24/18 Guaifenesin [Robitussin -] 10 ml PO Q4H PRN #1 bottle 05/02/18 Magnesium Hydrox 2400MG/30Ml [Milk of Magnesia -] 30 ml PO Q8H PRN #1 bot Polyethylene Glycol 3350 [Miralax 119 gm Btl -] 17 gm PO DAILY #1 bottle Sennosides [Senna -] 1 tab PO HS #30 tablet 05/02/18 Vancomycin 1,250 mg IVPB BID@0500,1700 #70 vial 05/02/18 oxyCODONE HCL [Roxicodone -] 10 mg PO Q4H PRN #30 tablet MDD 6 05/02/18 Family Disease History - Family Disease History Family Disease History: Diabetes: Father, Brother Review of Systems - Review of Systems Constitutional: reports: No Symptoms Eyes: reports: No Symptoms HENT: reports: No Symptoms Neck: reports: No Symptoms Cardiovascular: reports: Edema, Shortness of Breath Respiratory: reports: Cough, SOB, SOB on Exertion, Wheezing Gastrointestinal: reports: Bloating, Constipation Genitourinary: reports: No Symptoms Breasts: reports: No Symptoms Reported Musculoskeletal: reports: Back Pain Integumentary: reports: No Symptoms Neurological: reports: No Symptoms Endocrine: reports: No Symptoms Hematology/Lymphatic: reports: No Symptoms Psychiatric: reports: No Symptoms Physical Examination Vital Signs: Vital Signs Temperature 98.1 F 09/19/18 16:57 Pulse Rate 94 H 09/19/18 16:57 Respiratory Rate 26 H 09/19/18 16:57 Blood Pressure 158/110 H 09/19/18 16:57 O2 Sat by Pulse Oximetry (%) 96 09/19/18 16:57 Constitutional: Yes: Well Nourished, Moderate Distress, Obese Eyes: Yes: WNL, Conjunctiva Clear, EOM Intact, PERRL HENT: Yes: WNL, Atraumatic, Normocephalic Neck: Yes: WNL, Supple, Trachea Midline Cardiovascular: Yes: Regular Rate and Rhythm, S1, S2 Respiratory: Yes: Cough, Diminished (bases), On Nasal O2, Rhonchi, SOB, SOB on Exertion, Wheezes Gastrointestinal: Yes: Normal Bowel Sounds, Soft, Abdomen, Obese ...Rectal Exam: Yes: Deferred Renal/: Yes: WNL Breast(s): Yes: WNL Musculoskeletal: Yes: Back Pain Extremities: Yes: WNL Edema: Yes Edema: LLE: 2+, RLE: 1+ Peripheral Pulses WNL: Yes Neurological: Yes: WNL, Alert, Oriented, Cran Nerves II-XII Intact ...Motor Strength: WNL Psychiatric: Yes: WNL, Alert, Oriented Labs: CBC, BMP 09/19/18 18:09 09/19/18 18:09 Imaging - Results Chest X-ray: Image Reviewed EKG: Image Reviewed Problem List - Problems (1) Acute on chronic systolic (congestive) heart failure Code(s): I50.23 - ACUTE ON CHRONIC SYSTOLIC (CONGESTIVE) HEART FAILURE (2) Shortness of breath Code(s): R06.02 - SHORTNESS OF BREATH (3) COPD exacerbation Code(s): J44.1 - CHRONIC OBSTRUCTIVE PULMONARY DISEASE W (ACUTE) EXACERBATION (4) Asthma Code(s): J45.909 - UNSPECIFIED ASTHMA, UNCOMPLICATED Qualifiers: Asthma severity: unspecified severity Asthma complication type: uncomplicated (5) Uncontrolled diabetes mellitus Code(s): E11.65 - TYPE 2 DIABETES MELLITUS WITH HYPERGLYCEMIA (6) Cardiomyopathy Code(s): I42.9 - CARDIOMYOPATHY, UNSPECIFIED Qualifiers: Cardiomyopathy type: unspecified Qualified Code(s): I42.9 - Cardiomyopathy , unspecified (7) HTN (hypertension) Code(s): I10 - ESSENTIAL (PRIMARY) HYPERTENSION Qualifiers: Hypertension type: essential hypertension Qualified Code(s): I10 - Essential (primary) hypertension (8) Tobacco dependence Code(s): F17.200 - NICOTINE DEPENDENCE, UNSPECIFIED, UNCOMPLICATED Assessment/Plan 58 y/o woman admitted to Telemetry for Acute on Chronic CHF, Acute COPD Exacerbation for further evaluation of their emergent condition. Plan: 1. Cardiovascular: Acute on Chronic Systolic CHF HTN HLD Continue cardiac monitoring Chest Xray image- congestive changes Lasix given in the ED, will continue Nitro paste applied in ED Appreciate Cardiology consult Strict INOs Daily weights Echo 04/27/18 normal LV size with severe global LV systolic dysfunction, lVEF 15- 20%, normal RV, mild MR Serial Enzymes, 1st neg Continue home meds 2. Pulmonary: Acute COPD Exacerbation Likely secondary to tobacco use vs CHF flare vs infection Duoneb given in ED, will continue Appreciate Pulm consult Will start on solumederol w/taper O2 Chest Xray- increased markings, pulm congestion, cardiomegaly Smoking Cessation Case Management consult- home O2 (ran out) 3. Endocrinology: Uncontrolled Diabetes Likely secondary to poor diet vs non-compliance vs infection BGMs ISS HgbA1c in am RD consult Consider Endocrinology consult or f/u outpatient Monitor renal function 4. Tobacco Dependence Counseled on smoking cessation, patient is amendable She reports that her insurance will not pay for the Nicoderm Patch Case Management consult FEN Fluid Restriction 1L Replete lytes prn Low Na, Diabetic Diet Dispo: Requires Inpatient Care Visit type - Emergency Visit Emergency Visit: Yes ED Registration Date: 09/19/18 Care time: The patient presented to the Emergency Department on the above date and was hospitalized for further evaluation of their emergent condition. - New Patient This patient is new to me today: Yes Date on this admission: 09/19/18 - Critical Care Critical Care patient: No
[2018-09-20] MEDS ORDERED: methylPREDNISolone NA SUCC 125 MG/2 ML VIAL IVPUSH ONE (01:00)
[2018-09-20 06:20] LABS: BASO % 0.5 % (0-2.0); EOS % 0.1 % (0-4.5); HEMATOCRIT 46.9 % (32.4-45.2); HEMOGLOBIN 15.2 GM/dL (10.7-15.3); LYMPH % 3.3 % (8-40); MCH 29.9 pg (25.7-33.7); MCHC 32.4 g/dl (32.0-36.0); MEAN CELL VOLUME 92.4 fl (80-96); MEAN PLT VOLUME 7.8 fl (7.5-11.1); NEUT % 94.1 % (42.8-82.8); PLATELET COUNT 325 K/MM3 (134-434); RBC 5.07 M/mm3 (3.60-5.2); WHITE BLOOD COUNT 14.7 K/mm3 (4.0-10.0)
[2018-09-20 06:38] LABS: ANION GAP 9 MMOL/L (8-16); BLOOD UREA NITROGEN 23 mg/dL (7-18); CALCIUM 8.7 mg/dL (8.5-10.1); CHLORIDE 104 mmol/L (98-107); CO2 26 mmol/L (21-32); GLUCOSE,RANDOM 277 mg/dL (74-106); POTASSIUM 4.3 mmol/L (3.5-5.1); SODIUM 139 mmol/L (136-145)
[2018-09-20] MEDS: ALBUTEROL SO4 2.5/IPRATROPIUM 0.5 INH SOL 3 ML VIAL.NEB. NEB SCH ×4 (08:24→20:40)
[2018-09-20] MEDS: methylPREDNISolone NA SUCC 40 MG/1 ML VIAL IVPUSH SCH ×3 (08:24→20:45)
[2018-09-20] MEDS: INSULIN SLIDING SCALE (NOVOLOG) 1 VIAL SQ SCH ×5 (08:34→21:36)
[2018-09-20] MEDS ORDERED: INSULIN (NOVOLOG) ASPART 100 UNITS/ML 10ML VIAL ONE ×2 (08:35→21:23)
[2018-09-20] MEDS ORDERED: FUROSEMIDE 40 MG/4 ML INJECTABLE VIAL IVPUSH SCH (10:00)
[2018-09-20] MEDS: NICOTINE 7 MG/24 HOURS TOPICAL PATCH TD SCH (10:05)
[2018-09-20 11:59] LABS: ANISOCYTOSIS 0; MACROCYTOSIS 0; PLATELET ESTIMATE NORMAL
--- NOTE | 2018-09-20 14:21 | CON.CARD ---
Consult Consult Specialty:: cardiology Referred by:: Cathi Reason for Consultation:: Shortness of breath and leg edema - History of Present Illness Chief Complaint: Shortness of breath and leg edema History of Present Illness: The patient is a 58-year-old obese female, with a history of diabetes, hypertension, hyperlipidemia, COPD/asthma, nonischemic cardiomyopathy with severe systolic dysfunction, normal coronary arteries 10/28, now admitted with shortness of breath and leg edema. The patient looks quite comfortable. Denies chest pains. No palpitations. - History Source History Provided By: Patient, Medical Record Limitations to Obtaining History: No Limitations - Past Medical History Cardio/Vascular: Yes: CHF, HTN, Hyperlipdemia. No: AFIB, CAD Pulmonary: Yes: Asthma, COPD. No: O2 Dependent, Pneumonia, Pulmonary Embolus, Pulmonary Fibrosis, Sleep Apnea Gastrointestinal: Yes: GERD. No: Cancer Renal/: Yes: Renal Inusuff Endocrine: Yes: Diabetes Mellitus - Alcohol/Substance Use Hx Alcohol Use: No History of Substance Use: reports: None - Smoking History Smoking history: Current every day smoker Have you smoked in the past 12 months: Yes Aproximately how many cigarettes per day: 1 If you are a former smoker, when did you quit?: 1 month ago - Social History Usual Living Arrangement: With Spouse ADL: Independent History of Recent Travel: No Home Medications - Allergies Allergies/Adverse Reactions: Allergies Allergy/AdvReac Type Severity Reaction Status Date / Time No Known Allergies Allergy Verified 09/19/18 16:55 - Home Medications Home Medications: Ambulatory Orders Albuterol 2.5/Ipratropium 0.5 [Duoneb -] 1 neb NEB Q4H PRN #180 amp 05/03/17 Atorvastatin Ca [Lipitor] 10 mg PO HS #30 tab 05/03/17 Linaclotide [Linzess] 145 mcg PO DAILY #30 cap 05/03/17 Montelukast Na [Singulair -] 10 mg PO HS #30 tab 05/03/17 Esomeprazole Magnesium [Nexium 24Hr] 20 mg PO DAILY 04/20/18 Carvedilol [Coreg -] 6.25 mg PO BID #60 tablet 04/24/18 Furosemide [Lasix -] 40 mg PO DAILY #30 tablet 04/24/18 Insulin (Levemir) [Levemir Vial] 15 units SQ ACBK units 04/24/18 Insulin Sliding Scale [Novolog Vial Sliding Scale -] 1 vial SQ HS units Losartan Potassium [Cozaar -] 25 mg PO DAILY #30 tablet 04/24/18 Spironolactone [Aldactone -] 25 mg PO DAILY #30 tablet 04/24/18 Guaifenesin [Robitussin -] 10 ml PO Q4H PRN #1 bottle 05/02/18 Magnesium Hydrox 2400MG/30Ml [Milk of Magnesia -] 30 ml PO Q8H PRN #1 bot Polyethylene Glycol 3350 [Miralax 119 gm Btl -] 17 gm PO DAILY #1 bottle Sennosides [Senna -] 1 tab PO HS #30 tablet 05/02/18 Vancomycin 1,250 mg IVPB BID@0500,1700 #70 vial 05/02/18 oxyCODONE HCL [Roxicodone -] 10 mg PO Q4H PRN #30 tablet MDD 6 05/02/18 Family Disease History - Family Disease History Family Disease History: Diabetes: Father, Brother Review of Systems - Review of Systems Constitutional: reports: No Symptoms Eyes: reports: No Symptoms HENT: reports: No Symptoms Neck: reports: No Symptoms Cardiovascular: reports: Edema, Shortness of Breath Respiratory: reports: SOB Gastrointestinal: reports: No Symptoms Genitourinary: reports: No Symptoms Breasts: reports: No Symptoms Reported Musculoskeletal: reports: No Symptoms Integumentary: reports: No Symptoms Neurological: reports: No Symptoms Endocrine: reports: No Symptoms Hematology/Lymphatic: reports: No Symptoms Psychiatric: reports: No Symptoms Vital Signs: Vital Signs Temperature 99.5 F 09/20/18 09:23 Pulse Rate 90 09/20/18 10:56 Respiratory Rate 18 09/20/18 10:56 Blood Pressure 120/79 09/20/18 10:56 O2 Sat by Pulse Oximetry (%) 93 L 09/20/18 10:56 Constitutional: Yes: Obese Eyes: Yes: WNL, Conjunctiva Clear, EOM Intact HENT: Yes: WNL, Atraumatic, Normocephalic Neck: Yes: WNL, Supple, Trachea Midline Respiratory: Yes: WNL, Regular, CTA Bilaterally Gastrointestinal: Yes: WNL, Normal Bowel Sounds, Soft Renal/: Yes: WNL Cardiovascular: Yes: WNL, Regular Rate and Rhythm JVD: No Carotid Bruit: No PMI: Non-Displaced Heart Sounds: Yes: S1, S2 Murmur: Yes: Systolic Murmur, Grade 2 Musculoskeletal: Yes: WNL Edema: LLE: 1+, RLE: 1+ Peripheral Pulses: 1+ Left Carotid, 1+ Right Carotid, 1+ Left Femoral, 1+ Right Femoral, 1+ Left Popliteal, 1+ Right Popliteal, 1+ Left Doralis Pedis, 1+ Right Dorsalis Pedis Integumentary: Yes: WNL Neurological: Yes: WNL, Alert, Oriented ...Motor Strength: WNL - Other Data Labs, Other Data: CBC, BMP 09/20/18 05:55 09/20/18 05:55 Troponin, BNP 09/19/18 09/20/18 18:09 01:14 Troponin I 0.04 B-Natriuretic Peptide 4314.4 H 3331.8 H Troponin, BNP 09/19/18 09/20/18 18:09 01:14 Troponin I 0.04 B-Natriuretic Peptide 4314.4 H 3331.8 H Assessment/Plan The patient is a 58-year-old obese female, with a history of diabetes, hypertension, hyperlipidemia, COPD/asthma, nonischemic cardiomyopathy with severe systolic dysfunction, normal coronary arteries 10/28, now admitted with shortness of breath and leg edema. The patient looks quite comfortable. Denies chest pains. No palpitations. The patient is not in pulmonary edema. She is breathing quite comfortably. She has mild lower extremity edema. No angina. No palpitations. Would give Lasix 40 mg by mouth twice daily. Strict salt and fluid restrictions. Continue the other medications as currently. There is no need for cardiac monitoring. The patient is stable from the cardiac standpoint. No need for further cardiac testing/workup at this point. Consider pulmonary evaluation. [facility]
[2018-09-20] MEDS ORDERED: ALBUTEROL SO4 0.083% IH SOL 2.5 MG/3 ML VIAL.NEB. NEB PRN (15:08)
--- NOTE | 2018-09-20 15:14 | CON.PULM ---
Consult Consult Specialty:: PULM/CCM Referred by:: VIANEY Reason for Consultation:: SOB - History of Present Illness Chief Complaint: SOB History of Present Illness: 58 F, COPD on 2.5 L home O2 therapy (continues to smoke), HTN, HLD, IDDM, and Chronic Systolic CHF. Admitted via the ER due to progressive increase of bilateral LE edema and SOB / [place] for the past 2 days. She reports increase of her daily chronic cough with increased sputum production. No hemoptysis. No fever or chills. She has been utilizing her bronchodilators more frequently with less efficacy. No travel history or sick contacts. CXR: minimal increased interstitial markings / significant improvement when compared to recent CXR which was consistent with pulmonary vascular congestion. CT: 05/01: increasing right carinal LN from previous imaging - History Source History Provided By: Patient Limitations to Obtaining History: No Limitations - Past Medical History Cardio/Vascular: Yes: CHF, HTN, Hyperlipdemia. No: AFIB, CAD Pulmonary: Yes: Asthma, COPD, O2 Dependent. No: Pneumonia, Previously Intubated , Pulmonary Embolus, Pulmonary Fibrosis, Sleep Apnea Gastrointestinal: Yes: GERD. No: Cancer Renal/: Yes: Renal Inusuff Endocrine: Yes: Diabetes Mellitus - Alcohol/Substance Use Hx Alcohol Use: No History of Substance Use: reports: None - Smoking History Smoking history: Current every day smoker Have you smoked in the past 12 months: Yes Aproximately how many cigarettes per day: 1 If you are a former smoker, when did you quit?: 1 month ago - Social History Usual Living Arrangement: With Spouse ADL: Independent History of Recent Travel: No Home Medications - Allergies Allergies/Adverse Reactions: Allergies Allergy/AdvReac Type Severity Reaction Status Date / Time No Known Allergies Allergy Verified 09/19/18 16:55 - Home Medications Home Medications: Ambulatory Orders Albuterol 2.5/Ipratropium 0.5 [Duoneb -] 1 neb NEB Q4H PRN #180 amp 05/03/17 Atorvastatin Ca [Lipitor] 10 mg PO HS #30 tab 05/03/17 Linaclotide [Linzess] 145 mcg PO DAILY #30 cap 05/03/17 Montelukast Na [Singulair -] 10 mg PO HS #30 tab 05/03/17 Esomeprazole Magnesium [Nexium 24Hr] 20 mg PO DAILY 04/20/18 Carvedilol [Coreg -] 6.25 mg PO BID #60 tablet 04/24/18 Furosemide [Lasix -] 40 mg PO DAILY #30 tablet 04/24/18 Insulin (Levemir) [Levemir Vial] 15 units SQ ACBK units 04/24/18 Insulin Sliding Scale [Novolog Vial Sliding Scale -] 1 vial SQ HS units Losartan Potassium [Cozaar -] 25 mg PO DAILY #30 tablet 04/24/18 Spironolactone [Aldactone -] 25 mg PO DAILY #30 tablet 04/24/18 Guaifenesin [Robitussin -] 10 ml PO Q4H PRN #1 bottle 05/02/18 Magnesium Hydrox 2400MG/30Ml [Milk of Magnesia -] 30 ml PO Q8H PRN #1 bot Polyethylene Glycol 3350 [Miralax 119 gm Btl -] 17 gm PO DAILY #1 bottle Sennosides [Senna -] 1 tab PO HS #30 tablet 05/02/18 Vancomycin 1,250 mg IVPB BID@0500,1700 #70 vial 05/02/18 oxyCODONE HCL [Roxicodone -] 10 mg PO Q4H PRN #30 tablet MDD 6 05/02/18 Family Disease History - Family Disease History Family Disease History: Diabetes: Father, Brother Review of Systems - Review of Systems Constitutional: reports: Malaise. denies: Chills, Fever, Night Sweats, Unintentional Wgt. Loss Eyes: reports: No Symptoms HENT: reports: No Symptoms Neck: reports: No Symptoms Cardiovascular: reports: Edema. denies: Chest Pain, Palpitations, Shortness of Breath Respiratory: reports: Cough, Orthopnea, Snoring, SOB, SOB on Exertion, Wheezing. denies: Hemoptysis Gastrointestinal: reports: No Symptoms Genitourinary: reports: No Symptoms Breasts: reports: No Symptoms Reported Musculoskeletal: reports: No Symptoms Integumentary: reports: No Symptoms Neurological: reports: No Symptoms Endocrine: reports: No Symptoms Hematology/Lymphatic: reports: No Symptoms Psychiatric: reports: No Symptoms Physical Exam Vital Sings: Vital Signs Temperature 99.5 F 09/20/18 09:23 Pulse Rate 90 09/20/18 10:56 Respiratory Rate 18 09/20/18 10:56 Blood Pressure 120/79 09/20/18 10:56 O2 Sat by Pulse Oximetry (%) 93 L 09/20/18 10:56 Constitutional: Yes: No Distress, Calm Eyes: Yes: Conjunctiva Clear, EOM Intact HENT: Yes: Atraumatic, Normocephalic Neck: Yes: Supple, Trachea Midline Cardiovascular: Yes: Regular Rate and Rhythm Respiratory: Yes: Cough, Diminished, On Nasal O2, Rhonchi, SOB, SOB on Exertion , Tachypnea, Wheezes. No: Accessory Muscle Use, Rales, Stridor ...Inspection: Yes: WNL ...Clubbing: No Gastrointestinal: Yes: Normal Bowel Sounds, Soft, Abdomen, Obese Renal/: Yes: WNL Musculoskeletal: Yes: WNL Extremities: Yes: WNL Edema: Yes Peripheral Pulses WNL: No Integumentary: Yes: WNL Neurological: Yes: WNL, Alert, Oriented ...Motor Strength: WNL Psychiatric: Yes: WNL, Alert, Oriented Labs: CBC, BMP 09/20/18 05:55 09/20/18 05:55 Imaging - Results Chest X-ray: Report Reviewed, Image Reviewed Problem List - Problems (1) Shortness of breath Code(s): R06.02 - SHORTNESS OF BREATH (2) Tobacco dependence Code(s): F17.200 - NICOTINE DEPENDENCE, UNSPECIFIED, UNCOMPLICATED (3) Uncontrolled diabetes mellitus Code(s): E11.65 - TYPE 2 DIABETES MELLITUS WITH HYPERGLYCEMIA (4) Acute on chronic systolic (congestive) heart failure Code(s): I50.23 - ACUTE ON CHRONIC SYSTOLIC (CONGESTIVE) HEART FAILURE (5) Asthmatic bronchitis Code(s): J45.909 - UNSPECIFIED ASTHMA, UNCOMPLICATED (6) CHF (congestive heart failure) Code(s): I50.9 - HEART FAILURE, UNSPECIFIED (7) COPD (chronic obstructive pulmonary disease) Code(s): J44.9 - CHRONIC OBSTRUCTIVE PULMONARY DISEASE, UNSPECIFIED (8) COPD exacerbation Code(s): J44.1 - CHRONIC OBSTRUCTIVE PULMONARY DISEASE W (ACUTE) EXACERBATION (9) Cardiomyopathy Code(s): I42.9 - CARDIOMYOPATHY, UNSPECIFIED Qualifiers: Cardiomyopathy type: unspecified Qualified Code(s): I42.9 - Cardiomyopathy , unspecified (10) Cough Code(s): R05 - COUGH (11) Diabetes Code(s): E11.9 - TYPE 2 DIABETES MELLITUS WITHOUT COMPLICATIONS Qualifiers: Diabetes mellitus type: type 1 Diabetes mellitus complication status: with hyperglycemia Qualified Code(s): E10.65 - Type 1 diabetes mellitus with hyperglycemia (12) HTN (hypertension) Code(s): I10 - ESSENTIAL (PRIMARY) HYPERTENSION Qualifiers: Hypertension type: essential hypertension Qualified Code(s): I10 - Essential (primary) hypertension (13) Mediastinal lymphadenopathy Code(s): R59.0 - LOCALIZED ENLARGED LYMPH NODES (14) Smoker Code(s): F17.200 - NICOTINE DEPENDENCE, UNSPECIFIED, UNCOMPLICATED Assessment/Plan Medrol BD TX standing and PRN Would monitor off ABX for now Lasix CT chest in AM to follow enlarging mediastinal lymphadenopathy O2 to maintain saturation 88% to 92% No smoking Will follow Thank you. Dr Asencio
--- NOTE | 2018-09-20 15:54 | PN ---
Progress Note, Physician Chief Complaint: patient seen and examined in ER - Current Medication List Current Medications: Active Medications Albuterol Sulfate (Ventolin 0.083% Nebulizer Soln -) 1 amp NEB Q4H PRN PRN Reason: SHORT OF BREATH/WHEEZING Albuterol/Ipratropium (Duoneb -) 1 amp NEB RQID [facility] Last Admin: 09/20/18 12:03 Dose: 1 amp Furosemide (Lasix Injection -) 40 mg IVPUSH DAILY [facility] Last Admin: 09/20/18 10:05 Dose: 40 mg Insulin Aspart (Novolog Vial Sliding Scale -) 1 vial SQ ACHS [facility]; Protocol Last Admin: 09/20/18 11:29 Dose: 6 units Methylprednisolone Sodium Succinate (Solu-Medrol -) 40 mg IVPUSH Q6H-IV [facility] Last Admin: 09/20/18 15:53 Dose: 40 mg Nicotine (Nicoderm Patch -) 7 mg TD DAILY [facility] Last Admin: 09/20/18 10:05 Dose: 7 mg - Objective Vital Signs: Vital Signs Temperature 99.5 F 09/20/18 09:23 Pulse Rate 90 09/20/18 10:56 Respiratory Rate 18 09/20/18 10:56 Blood Pressure 120/79 09/20/18 10:56 O2 Sat by Pulse Oximetry (%) 93 L 09/20/18 10:56 Constitutional: Yes: Calm Cardiovascular: Yes: Regular Rate and Rhythm, S1, S2 Respiratory: Yes: Rhonchi Gastrointestinal: Yes: Normal Bowel Sounds, Soft Labs: CBC, BMP 09/20/18 05:55 09/20/18 05:55 Problem List - Problems (1) Mediastinal lymphadenopathy Assessment/Plan: chest ct scan Code(s): R59.0 - LOCALIZED ENLARGED LYMPH NODES (2) Shortness of breath Assessment/Plan: oxygen bronchodilators medrol lasix for elevated bnp cardiology and pulm on board Code(s): R06.02 - SHORTNESS OF BREATH
[2018-09-20 16:26] LABS: COCAINE, UR NEGATIVE ng/ml (CUTOFF=300); METHADONE, UR NEGATIVE ng/ml (CUTOFF=300); OPIATES, URI NEGATIVE ng/ml (CUTOFF=300); PHENCYCLIDINE,URINE NEGATIVE ng/ml (CUTOFF=25); URINE AMPHETAMINES NEGATIVE ng/ml (CUTOFF=500); URINE BARBITURATES NEGATIVE ng/ml (CUTOFF=200); URINE BENZODIAZEPINES NEGATIVE ng/ml (CUTOFF=200)
--- NOTE | 2018-09-20 16:45 | EKG ---
Test Reason : Blood Pressure : / mmHG Vent. Rate : 093 BPM Atrial Rate : 093 BPM P-R Int : 166 ms QRS Dur : 088 ms QT Int : 386 ms P-R-T Axes : 042 142 077 degrees QTc Int : 479 ms SINUS RHYTHM WITH OCCASIONAL PREMATURE VENTRICULAR COMPLEXES POSSIBLE LEFT ATRIAL ENLARGEMENT RIGHT AXIS DEVIATION LOW VOLTAGE QRS CANNOT RULE OUT ANTERIOR INFARCT , AGE UNDETERMINED ABNORMAL ECG WHEN COMPARED WITH ECG OF 21-APR-2018 13:15, PREMATURE VENTRICULAR COMPLEXES ARE NOW PRESENT Confirmed by LIVAN RICARDO MD ([id number]) on 09/20/2018 4:45:16 PM Referred By: Confirmed By:LIVAN RICARDO MD
[2018-09-20 16:50] LABS: URINE APPEARANCE CLEAR; URINE BILIRUBIN NEGATIVE (<2.0 mg/dL); URINE COLOR LTYELLOW; URINE GLUCOSE (UA) 3+ (NEGATIVE); URINE KETONE NEGATIVE (NEGATIVE); URINE LEUK ESTERASE NEGATIVE (NEGATIVE); URINE NITRITE NEGATIVE (NEGATIVE); URINE PROTEIN 2+ (NEGATIVE); URINE UROBILINOGEN NEGATIVE mg/dL (0.2-1.0)
[2018-09-20 17:15] LABS: EPI CELLS RARE /HPF (FEW)
[2018-09-20] MEDS ORDERED: INSULIN REGULAR HUMAN 100 UNITS/ML *VIAL SQ ONE ×2 (18:23→21:21)
[2018-09-20] MEDS ORDERED: INSULIN REGULAR HUMAN 100 UNITS/ML *VIAL ONE (18:33)
[2018-09-20] MEDS ORDERED: ALBUTEROL SO4 2.5/IPRATROPIUM 0.5 INH SOL 3 ML VIAL.NEB. NEB ONE (20:21)
[2018-09-20] MEDS ORDERED: methylPREDNISolone NA SUCC 40 MG/1 ML VIAL ONE (20:22)
[2018-09-20] MEDS ORDERED: FUROSEMIDE 40 MG/4 ML INJECTABLE VIAL IVPUSH ONE (21:03)
[2018-09-20] MEDS ORDERED: FUROSEMIDE 40 MG/4 ML INJECTABLE VIAL ONE (21:11)
[2018-09-21] MEDS: methylPREDNISolone NA SUCC 40 MG/1 ML VIAL IVPUSH SCH ×4 (03:08→22:04)
[2018-09-21] MEDS: INSULIN (LEVEMIR) 100 UNITS/ML UNITS SQ SCH (06:38)
[2018-09-21] MEDS: FUROSEMIDE 40 MG TABLET (FP) PO SCH ×2 (06:38→14:30)
[2018-09-21] MEDS: INSULIN SLIDING SCALE (NOVOLOG) 1 VIAL SQ SCH ×4 (06:39→22:04)
[2018-09-21] MEDS: ALBUTEROL SO4 2.5/IPRATROPIUM 0.5 INH SOL 3 ML VIAL.NEB. NEB SCH ×4 (07:31→20:28)
[2018-09-21 07:36] LABS: BASO % 0.3 % (0-2.0); HEMATOCRIT 43.4 % (32.4-45.2); HEMOGLOBIN 14.2 GM/dL (10.7-15.3); MCH 30.2 pg (25.7-33.7); MCHC 32.7 g/dl (32.0-36.0); MEAN CELL VOLUME 92.3 fl (80-96); MEAN PLT VOLUME 7.7 fl (7.5-11.1); MONO % 3.6 % (3.8-10.2); NEUT % 94.1 % (42.8-82.8); PLATELET COUNT 316 K/MM3 (134-434); RDW 17.7 % (11.6-15.6); WHITE BLOOD COUNT 18.7 K/mm3 (4.0-10.0)
[2018-09-21 08:21] LABS: ALBUMIN 2.7 g/dl (3.4-5.0); ALK PHOS 199 U/L (45-117); ANION GAP 7 MMOL/L (8-16); BILIRUBIN,TOTAL 0.6 mg/dL (0.2-1); BLOOD UREA NITROGEN 34 mg/dL (7-18); CALCIUM 8.6 mg/dL (8.5-10.1); CHLORIDE 102 mmol/L (98-107); CO2 30 mmol/L (21-32); CREATININE 1.3 mg/dL (0.55-1.3); POTASSIUM 4.2 mmol/L (3.5-5.1); SGOT/AST 8 U/L (15-37); SGPT/ALT 24 U/L (13-61); SODIUM 138 mmol/L (136-145); TOT PROT 6.1 g/dl (6.4-8.2)
[2018-09-21 08:45] LABS: GLUCOSE,RANDOM 316 mg/dL (74-106)
[2018-09-21 10:10] LABS: ANISOCYTOSIS 1+; MACROCYTOSIS 1+; OVALOCYTE 1+; PLATELET ESTIMATE NORMAL; TARGET CELLS 1+
[2018-09-21] MEDS: CARVEDILOL 6.25 MG TABLET (FP) PO SCH ×2 (10:38→22:04)
[2018-09-21] MEDS: NICOTINE 7 MG/24 HOURS TOPICAL PATCH TD SCH (10:39)
--- NOTE | 2018-09-21 13:18 | PN ---
Progress Note, Physician History of Present Illness: PULMONARY ALERT,FEELING BETTER,LESS DYSPNEIC - Current Medication List Current Medications: Active Medications Albuterol Sulfate (Ventolin 0.083% Nebulizer Soln -) 1 amp NEB Q4H PRN PRN Reason: SHORT OF BREATH/WHEEZING Albuterol/Ipratropium (Duoneb -) 1 amp NEB RQID [facility] Last Admin: 09/21/18 11:29 Dose: 1 amp Atorvastatin Calcium (Lipitor -) 10 mg PO HS [facility] Carvedilol (Coreg -) 6.25 mg PO BID [facility] Last Admin: 09/21/18 10:38 Dose: 6.25 mg Furosemide (Lasix -) 40 mg PO BID@0600,1400 [facility] Last Admin: 09/21/18 06:38 Dose: 40 mg Insulin Aspart (Novolog Vial Sliding Scale -) 1 vial SQ ACHS [facility]; Protocol Last Admin: 09/21/18 11:52 Dose: 6 units Insulin Detemir (Levemir Vial) 15 units SQ ACBK [facility] Last Admin: 09/21/18 06:38 Dose: 15 unit Methylprednisolone Sodium Succinate (Solu-Medrol -) 40 mg IVPUSH Q6H-IV [facility] Last Admin: 09/21/18 10:38 Dose: 40 mg Nicotine (Nicoderm Patch -) 7 mg TD DAILY [facility] Last Admin: 09/21/18 10:39 Dose: 7 mg - Objective Vital Signs: Vital Signs Temperature 98.1 F 09/21/18 06:00 Pulse Rate 89 09/21/18 06:00 Respiratory Rate 18 09/21/18 06:00 Blood Pressure 146/94 09/21/18 06:00 O2 Sat by Pulse Oximetry (%) 95 09/21/18 01:06 Constitutional: Yes: Well Nourished, Calm Eyes: Yes: WNL HENT: Yes: WNL Neck: Yes: WNL Cardiovascular: Yes: Regular Rate and Rhythm, S1, S2 Respiratory: Yes: Rales (BIBASILAR RALES) Gastrointestinal: Yes: Normal Bowel Sounds, Soft Extremities: Yes: WNL Edema: Yes Labs: CBC, BMP 09/21/18 06:00 09/21/18 06:00 - ....Imaging Cat Scan: Report Reviewed, Image Reviewed (LLL ALVEOLAR INFILTRATE,MILD INCREASED MEDIASTINAL ADENOPATHY) Assessment/Plan Problem List - Problems (1) Shortness of breath Code(s): R06.02 - SHORTNESS OF BREATH (2) Tobacco dependence Code(s): F17.200 - NICOTINE DEPENDENCE, UNSPECIFIED, UNCOMPLICATED (3) Uncontrolled diabetes mellitus Code(s): E11.65 - TYPE 2 DIABETES MELLITUS WITH HYPERGLYCEMIA (4) Acute on chronic systolic (congestive) heart failure Code(s): I50.23 - ACUTE ON CHRONIC SYSTOLIC (CONGESTIVE) HEART FAILURE (5) Asthmatic bronchitis Code(s): J45.909 - UNSPECIFIED ASTHMA, UNCOMPLICATED (6) CHF (congestive heart failure) Code(s): I50.9 - HEART FAILURE, UNSPECIFIED (7) COPD (chronic obstructive pulmonary disease) Code(s): J44.9 - CHRONIC OBSTRUCTIVE PULMONARY DISEASE, UNSPECIFIED (8) COPD exacerbation Code(s): J44.1 - CHRONIC OBSTRUCTIVE PULMONARY DISEASE W (ACUTE) EXACERBATION (9) Cardiomyopathy Code(s): I42.9 - CARDIOMYOPATHY, UNSPECIFIED Qualifiers: Cardiomyopathy type: unspecified Qualified Code(s): I42.9 - Cardiomyopathy , unspecified (10) Cough Code(s): R05 - COUGH (11) Diabetes Code(s): E11.9 - TYPE 2 DIABETES MELLITUS WITHOUT COMPLICATIONS Qualifiers: Diabetes mellitus type: type 1 Diabetes mellitus complication status: with hyperglycemia Qualified Code(s): E10.65 - Type 1 diabetes mellitus with hyperglycemia (12) HTN (hypertension) Code(s): I10 - ESSENTIAL (PRIMARY) HYPERTENSION Qualifiers: Hypertension type: essential hypertension Qualified Code(s): I10 - Essential (primary) hypertension (13) Mediastinal lymphadenopathy Code(s): R59.0 - LOCALIZED ENLARGED LYMPH NODES (14) Smoker Code(s): F17.200 - NICOTINE DEPENDENCE, UNSPECIFIED, UNCOMPLICATED Assessment/Plan Medrol BD TX standing and PRN Would monitor off ABX for now Lasix ABX O2 to maintain saturation 88% to 92% No smoking DR LOMELI
[2018-09-21] MEDS ORDERED: DEXTROSE 5%-WATER - 50 ML IVPB ONE (14:19)
[2018-09-21] MEDS ORDERED: cefTRIAXone SODIUM 1 GM VIAL ONE (14:19)
[2018-09-21] MEDS: CEFTRIAXONE 1 GM in DEXTROSE 5%-WATER - 50 ML IVPB SCH (14:29)
--- NOTE | 2018-09-21 14:36 | PN ---
Progress Note, Physician Chief Complaint: Mediastinal lymphadenopathy SOB Acute on chronic congestive heart failure History of Present Illness: Previous notes and events reviewed awake and alert NAD patient states feeling SOB, continue to have productive cough - Current Medication List Current Medications: Active Medications Albuterol Sulfate (Ventolin 0.083% Nebulizer Soln -) 1 amp NEB Q4H PRN PRN Reason: SHORT OF BREATH/WHEEZING Albuterol/Ipratropium (Duoneb -) 1 amp NEB RQID [facility] Last Admin: 09/21/18 11:29 Dose: 1 amp Atorvastatin Calcium (Lipitor -) 10 mg PO HS [facility] Carvedilol (Coreg -) 6.25 mg PO BID [facility] Last Admin: 09/21/18 10:38 Dose: 6.25 mg Furosemide (Lasix -) 40 mg PO BID@0600,1400 [facility] Last Admin: 09/21/18 14:30 Dose: 40 mg Ceftriaxone Sodium 1 gm/ (Dextrose) 50 mls @ 100 mls/hr IVPB DAILY [facility]; Protocol Last Admin: 09/21/18 14:29 Dose: 100 mls/hr Insulin Aspart (Novolog Vial Sliding Scale -) 1 vial SQ ACHS [facility]; Protocol Last Admin: 09/21/18 11:52 Dose: 6 units Insulin Detemir (Levemir Vial) 15 units SQ ACBK [facility] Last Admin: 09/21/18 06:38 Dose: 15 unit Methylprednisolone Sodium Succinate (Solu-Medrol -) 40 mg IVPUSH Q6H-IV [facility] Last Admin: 09/21/18 14:30 Dose: 40 mg Nicotine (Nicoderm Patch -) 7 mg TD DAILY [facility] Last Admin: 09/21/18 10:39 Dose: 7 mg - Objective Vital Signs: Vital Signs Temperature 98.1 F 09/21/18 06:00 Pulse Rate 89 09/21/18 06:00 Respiratory Rate 18 09/21/18 06:00 Blood Pressure 146/94 09/21/18 06:00 O2 Sat by Pulse Oximetry (%) 95 09/21/18 01:06 Constitutional: Yes: No Distress, Calm, Obese Eyes: Yes: Conjunctiva Clear HENT: Yes: Normocephalic Neck: Yes: Supple Cardiovascular: Yes: Regular Rate and Rhythm Respiratory: Yes: Cough (productive), On Nasal O2, Rales Gastrointestinal: Yes: Normal Bowel Sounds, Soft, Abdomen, Obese, Other ( nontender) Extremities: Yes: WNL Edema: Yes Edema: LLE: Trace, RLE: Trace Neurological: Yes: Alert, Oriented Psychiatric: Yes: Alert, Oriented Labs: CBC, BMP 09/21/18 06:00 09/21/18 06:00 Active Medications Generic Name Dose Route Start Last Admin Trade Name Freq PRN Reason Stop Dose Admin Albuterol Sulfate 1 amp 09/20/18 15:08 Ventolin 0.083% Nebulizer Soln - NEB Q4H PRN SHORT OF BREATH/WHEEZING Albuterol/Ipratropium 1 amp 09/20/18 08:00 09/21/18 11:29 Duoneb - NEB 1 amp RQID [facility] Administration Atorvastatin Calcium 10 mg 09/21/18 22:00 Lipitor - PO HS [facility] Carvedilol 6.25 mg 09/21/18 10:00 09/21/18 10:38 Coreg - PO 6.25 mg BID [facility] Administration Furosemide 40 mg 09/21/18 06:00 09/21/18 14:30 Lasix - PO 40 mg BID@0600,1400 [facility] Administration Ceftriaxone Sodium 1 gm/ 50 mls @ 100 mls/hr 09/21/18 13:30 09/21/18 14:29 Dextrose IVPB 100 mls/hr DAILY [facility] Administration Protocol Insulin Aspart 1 vial 09/20/18 07:00 09/21/18 11:52 Novolog Vial Sliding Scale - SQ 6 units ACHS [facility] Administration Protocol Insulin Detemir 15 units 09/21/18 07:00 09/21/18 06:38 Levemir Vial SQ 15 unit ACBK [facility] Administration Methylprednisolone Sodium Succinate 40 mg 09/20/18 09:00 09/21/18 14:30 Solu-Medrol - IVPUSH 40 mg Q6H-IV [facility] Administration Nicotine 7 mg 09/20/18 10:00 09/21/18 10:39 Nicoderm Patch - TD 7 mg DAILY [facility] Administration <Krysta Tariq - Last Filed: 09/21/18 14:37> - Current Medication List Current Medications: Active Medications Albuterol Sulfate (Ventolin 0.083% Nebulizer Soln -) 1 amp NEB Q4H PRN PRN Reason: SHORT OF BREATH/WHEEZING Albuterol/Ipratropium (Duoneb -) 1 amp NEB RQID [facility] Last Admin: 09/23/18 15:31 Dose: 1 amp Albuterol/Ipratropium (Duoneb -) 1 amp NEB Q4H PRN PRN Reason: ASTHMA Atorvastatin Calcium (Lipitor -) 10 mg PO HS [facility] Last Admin: 09/22/18 22:14 Dose: 10 mg Carvedilol (Coreg -) 6.25 mg PO BID [facility] Last Admin: 09/23/18 09:48 Dose: 6.25 mg Furosemide (Lasix -) 40 mg PO BID@0600,1400 [facility] Last Admin: 09/23/18 13:34 Dose: 40 mg Guaifenesin (Robitussin -) 10 ml PO Q4H PRN PRN Reason: COUGH Last Admin: 09/23/18 09:47 Dose: 10 ml Ceftriaxone Sodium 1 gm/ (Dextrose) 50 mls @ 100 mls/hr IVPB DAILY [facility]; Protocol Last Admin: 09/23/18 09:46 Dose: 100 mls/hr Insulin Aspart (Novolog Vial Sliding Scale -) 1 vial SQ ACHS [facility]; Protocol Last Admin: 09/23/18 16:27 Dose: 9 units Insulin Aspart (Novolog Mix 70/30 Vial) 30 units SQ BIDAC [facility] Last Admin: 09/23/18 16:28 Dose: 30 units Insulin Detemir (Levemir Vial) 40 units SQ ACBK [facility] Last Admin: 09/23/18 06:37 Dose: 40 units Losartan Potassium (Cozaar -) 25 mg PO DAILY [facility] Last Admin: 09/23/18 09:48 Dose: 25 mg Magnesium Hydroxide (Milk Of Magnesia -) 30 ml PO Q8H PRN PRN Reason: INDIGESTION Last Admin: 09/22/18 14:32 Dose: 30 ml Methylprednisolone Sodium Succinate (Solu-Medrol -) 40 mg IVPUSH Q12H [facility] Nicotine (Nicoderm Patch -) 7 mg TD DAILY [facility] Last Admin: 09/23/18 09:47 Dose: 7 mg Oxycodone HCl (Roxicodone -) 10 mg PO Q6H PRN PRN Reason: PAIN LEVEL 6-10 Last Admin: 09/23/18 09:47 Dose: 10 mg Polyethylene Glycol (Miralax (For Daily Use) -) 17 gm PO DAILY [facility] Last Admin: 09/23/18 10:23 Dose: 17 gm Senna (Senna -) 1 tab PO HS [facility] Last Admin: 09/22/18 22:14 Dose: 1 tab Spironolactone (Aldactone -) 25 mg PO DAILY [facility] Last Admin: 09/23/18 09:47 Dose: 25 mg - Objective Vital Signs: Vital Signs Temperature 97.9 F 09/23/18 10:00 Pulse Rate 85 09/23/18 10:00 Respiratory Rate 18 09/23/18 10:00 Blood Pressure 142/83 09/23/18 10:00 O2 Sat by Pulse Oximetry (%) 94 L 09/23/18 09:00 Labs: CBC, BMP 09/22/18 06:00 09/22/18 06:00 <Cherelle Samuel - Last Filed: 09/23/18 18:14> Problem List - Problems (1) Mediastinal lymphadenopathy Assessment/Plan: -pulmonary on board -Chest CT scan reviewed-show infiltrates will start on ceftriaxone 1g IVPB Code(s): R59.0 - LOCALIZED ENLARGED LYMPH NODES (2) Shortness of breath Assessment/Plan: -pulmonary on board -continue methylprednisone IVPB -albuterol neb tx PRN -O2 via NC PRN Code(s): R06.02 - SHORTNESS OF BREATH (3) Uncontrolled diabetes mellitus Assessment/Plan: -BGM ACHS, ISS -endocrinology consult -cont with levemir -diabetic diet Code(s): E11.65 - TYPE 2 DIABETES MELLITUS WITH HYPERGLYCEMIA (4) Acute on chronic systolic (congestive) heart failure Assessment/Plan: -cardiology on board -lasix PO bid -1L fluid restriction -daily weights Code(s): I50.23 - ACUTE ON CHRONIC SYSTOLIC (CONGESTIVE) HEART FAILURE (5) HTN (hypertension) Assessment/Plan: -continue with coreg -lo Na diet Code(s): I10 - ESSENTIAL (PRIMARY) HYPERTENSION Qualifiers: Hypertension type: essential hypertension Qualified Code(s): I10 - Essential (primary) hypertension <Krysta Tariq - Last Filed: 09/21/18 14:37> Assessment/Plan PATIENT SEEN AND EXAMINED AND I AGREE WITH ABOVE NOTE <Cherelle Samuel - Last Filed: 09/23/18 18:14>
[2018-09-21] MEDS: ATORVASTATIN CA 10 MG TABLET (FP) PO SCH (22:04)
[2018-09-22] MEDS: methylPREDNISolone NA SUCC 40 MG/1 ML VIAL IVPUSH SCH ×4 (03:33→17:52)
[2018-09-22] MEDS ORDERED: INSULIN REGULAR HUMAN 100 UNITS/ML *VIAL IVPUSH ONE (03:51)
[2018-09-22] MEDS: FUROSEMIDE 40 MG TABLET (FP) PO SCH ×2 (05:45→14:18)
[2018-09-22] MEDS: INSULIN (LEVEMIR) 100 UNITS/ML UNITS SQ SCH (06:45)
[2018-09-22] MEDS: INSULIN SLIDING SCALE (NOVOLOG) 1 VIAL SQ SCH ×4 (06:45→22:14)
[2018-09-22] MEDS: ALBUTEROL SO4 2.5/IPRATROPIUM 0.5 INH SOL 3 ML VIAL.NEB. NEB SCH ×4 (07:04→21:05)
[2018-09-22] MEDS ORDERED: INSULIN (NOVOLOG) ASPART 100 UNITS/ML 10ML VIAL ONE ×3 (08:02→16:53)
[2018-09-22 08:16] LABS: HEMATOCRIT 45.6 % (32.4-45.2); HEMOGLOBIN 14.7 GM/dL (10.7-15.3); MCHC 32.3 g/dl (32.0-36.0); MEAN CELL VOLUME 92.9 fl (80-96); PLATELET COUNT 334 K/MM3 (134-434); RBC 4.91 M/mm3 (3.60-5.2); RDW 17.6 % (11.6-15.6); WHITE BLOOD COUNT 18.3 K/mm3 (4.0-10.0)
[2018-09-22 08:43] LABS: ALBUMIN 2.8 g/dl (3.4-5.0); ALK PHOS 221 U/L (45-117); ANION GAP 8 MMOL/L (8-16); BILIRUBIN,TOTAL 0.6 mg/dL (0.2-1); BLOOD UREA NITROGEN 29 mg/dL (7-18); CALCIUM 8.5 mg/dL (8.5-10.1); CHLORIDE 98 mmol/L (98-107); CO2 27 mmol/L (21-32); CREATININE 1.1 mg/dL (0.55-1.3); POTASSIUM 4.6 mmol/L (3.5-5.1); SGOT/AST 8 U/L (15-37); SGPT/ALT 22 U/L (13-61); SODIUM 134 mmol/L (136-145); TOT PROT 6.4 g/dl (6.4-8.2)
--- NOTE | 2018-09-22 09:11 | PN ---
Progress Note, Physician - Current Medication List Current Medications: Active Medications Albuterol Sulfate (Ventolin 0.083% Nebulizer Soln -) 1 amp NEB Q4H PRN PRN Reason: SHORT OF BREATH/WHEEZING Albuterol/Ipratropium (Duoneb -) 1 amp NEB RQID [facility] Last Admin: 09/22/18 07:04 Dose: 1 amp Atorvastatin Calcium (Lipitor -) 10 mg PO HS [facility] Last Admin: 09/21/18 22:04 Dose: 10 mg Carvedilol (Coreg -) 6.25 mg PO BID [facility] Last Admin: 09/21/18 22:04 Dose: 6.25 mg Furosemide (Lasix -) 40 mg PO BID@0600,1400 [facility] Last Admin: 09/22/18 05:45 Dose: 40 mg Ceftriaxone Sodium 1 gm/ (Dextrose) 50 mls @ 100 mls/hr IVPB DAILY [facility]; Protocol Last Admin: 09/21/18 14:29 Dose: 100 mls/hr Insulin Aspart (Novolog Vial Sliding Scale -) 1 vial SQ ACHS [facility]; Protocol Last Admin: 09/22/18 06:45 Dose: 10 units Insulin Detemir (Levemir Vial) 15 units SQ ACBK [facility] Last Admin: 09/22/18 06:45 Dose: 15 unit Methylprednisolone Sodium Succinate (Solu-Medrol -) 40 mg IVPUSH Q6H-IV [facility] Last Admin: 09/22/18 03:33 Dose: 40 mg Nicotine (Nicoderm Patch -) 7 mg TD DAILY [facility] Last Admin: 09/21/18 10:39 Dose: 7 mg - Objective Vital Signs: Vital Signs Temperature 98.4 F 09/22/18 06:00 Pulse Rate 71 09/22/18 06:00 Respiratory Rate 18 09/22/18 06:00 Blood Pressure 128/79 09/22/18 06:00 O2 Sat by Pulse Oximetry (%) 94 L 09/21/18 21:00 Cardiovascular: Yes: S1, S2 Respiratory: Yes: Rhonchi, Wheezes Gastrointestinal: Yes: Normal Bowel Sounds, Soft Labs: CBC, BMP 09/22/18 06:00 09/22/18 06:00 Problem List - Problems (1) COPD exacerbation Assessment/Plan: iv steroids nebs pulm Code(s): J44.1 - CHRONIC OBSTRUCTIVE PULMONARY DISEASE W (ACUTE) EXACERBATION (2) Acute on chronic systolic (congestive) heart failure Assessment/Plan: lasix cardio Code(s): I50.23 - ACUTE ON CHRONIC SYSTOLIC (CONGESTIVE) HEART FAILURE (3) Mediastinal lymphadenopathy Assessment/Plan: per pulm Code(s): R59.0 - LOCALIZED ENLARGED LYMPH NODES (4) Uncontrolled diabetes mellitus Assessment/Plan: increase levemir endo bgm Code(s): E11.65 - TYPE 2 DIABETES MELLITUS WITH HYPERGLYCEMIA
[2018-09-22] MEDS ORDERED: PT OWN MED DRAWER 7, Y5N ONE (09:24)
[2018-09-22] MEDS ORDERED: cefTRIAXone SODIUM 1 GM VIAL ONE (09:24)
[2018-09-22] MEDS ORDERED: DEXTROSE 5%-WATER - 50 ML IVPB ONE (09:24)
[2018-09-22 09:27] LABS: GLUCOSE,RANDOM 412 mg/dL (74-106)
[2018-09-22] MEDS: CARVEDILOL 6.25 MG TABLET (FP) PO SCH ×2 (09:34→22:14)
[2018-09-22] MEDS: CEFTRIAXONE 1 GM in DEXTROSE 5%-WATER - 50 ML IVPB SCH (09:34)
[2018-09-22] MEDS: NICOTINE 7 MG/24 HOURS TOPICAL PATCH TD SCH (09:34)
[2018-09-22] MEDS ORDERED: MAGNESIUM HYDROX 2400MG/30ML ORAL SUSPENSION 30 ML CUP PO PRN (13:19)
[2018-09-22] MEDS ORDERED: ALBUTEROL SO4 2.5/IPRATROPIUM 0.5 INH SOL 3 ML VIAL.NEB. NEB PRN (13:19)
[2018-09-22] MEDS ORDERED: INSULIN (LEVEMIR) 100 UNITS/ML UNITS SQ ONE ×2 (14:15→21:39)
[2018-09-22] MEDS: oxyCODONE HCL 5 MG TABLET PO PRN (14:32)
[2018-09-22] MEDS: guaiFENesin 200 MG/10 ML 10 ML UNIT-DOSE CUPS PO PRN (14:32)
--- NOTE | 2018-09-22 14:42 | PN ---
Progress Note, Physician History of Present Illness: PULMONARY ALERT,FEELING BETTER,LESS SOB - Current Medication List Current Medications: Active Medications Albuterol Sulfate (Ventolin 0.083% Nebulizer Soln -) 1 amp NEB Q4H PRN PRN Reason: SHORT OF BREATH/WHEEZING Albuterol/Ipratropium (Duoneb -) 1 amp NEB RQID [facility] Last Admin: 09/22/18 11:26 Dose: 1 amp Albuterol/Ipratropium (Duoneb -) 1 amp NEB Q4H PRN PRN Reason: ASTHMA Atorvastatin Calcium (Lipitor -) 10 mg PO HS [facility] Last Admin: 09/21/18 22:04 Dose: 10 mg Carvedilol (Coreg -) 6.25 mg PO BID [facility] Last Admin: 09/22/18 09:34 Dose: 6.25 mg Furosemide (Lasix -) 40 mg PO BID@0600,1400 [facility] Last Admin: 09/22/18 14:18 Dose: 40 mg Guaifenesin (Robitussin -) 10 ml PO Q4H PRN PRN Reason: COUGH Last Admin: 09/22/18 14:32 Dose: 10 ml Ceftriaxone Sodium 1 gm/ (Dextrose) 50 mls @ 100 mls/hr IVPB DAILY [facility]; Protocol Last Admin: 09/22/18 09:34 Dose: 100 mls/hr Insulin Aspart (Novolog Vial Sliding Scale -) 1 vial SQ ACHS [facility]; Protocol Last Admin: 09/22/18 11:35 Dose: 10 units Insulin Detemir (Levemir Vial) 40 units SQ ACBK [facility] Losartan Potassium (Cozaar -) 25 mg PO DAILY [facility] Magnesium Hydroxide (Milk Of Magnesia -) 30 ml PO Q8H PRN PRN Reason: INDIGESTION Last Admin: 09/22/18 14:32 Dose: 30 ml Methylprednisolone Sodium Succinate (Solu-Medrol -) 40 mg IVPUSH Q6H-IV [facility] Last Admin: 09/22/18 14:18 Dose: 40 mg Nicotine (Nicoderm Patch -) 7 mg TD DAILY [facility] Last Admin: 09/22/18 09:34 Dose: 7 mg Oxycodone HCl (Roxicodone -) 10 mg PO Q6H PRN PRN Reason: PAIN LEVEL 6-10 Last Admin: 09/22/18 14:32 Dose: 10 mg Polyethylene Glycol (Miralax (For Daily Use) -) 17 gm PO DAILY [facility] Senna (Senna -) 1 tab PO HS [facility] Spironolactone (Aldactone -) 25 mg PO DAILY [facility] - Objective Vital Signs: Vital Signs Temperature 97.0 F L 09/22/18 10:00 Pulse Rate 100 H 09/22/18 10:00 Respiratory Rate 20 09/22/18 10:00 Blood Pressure 138/76 09/22/18 10:00 O2 Sat by Pulse Oximetry (%) 95 09/22/18 09:00 Constitutional: Yes: Well Nourished, Calm Eyes: Yes: WNL HENT: Yes: WNL Neck: Yes: WNL Cardiovascular: Yes: Regular Rate and Rhythm, S1, S2 Respiratory: Yes: Diminished Gastrointestinal: Yes: Normal Bowel Sounds, Soft Extremities: Yes: WNL Edema: No Labs: CBC, BMP 09/22/18 06:00 09/22/18 06:00 Assessment/Plan Problem List - Problems (1) Shortness of breath Code(s): R06.02 - SHORTNESS OF BREATH (2) Tobacco dependence Code(s): F17.200 - NICOTINE DEPENDENCE, UNSPECIFIED, UNCOMPLICATED (3) Uncontrolled diabetes mellitus Code(s): E11.65 - TYPE 2 DIABETES MELLITUS WITH HYPERGLYCEMIA (4) Acute on chronic systolic (congestive) heart failure Code(s): I50.23 - ACUTE ON CHRONIC SYSTOLIC (CONGESTIVE) HEART FAILURE (5) Asthmatic bronchitis Code(s): J45.909 - UNSPECIFIED ASTHMA, UNCOMPLICATED (6) CHF (congestive heart failure) Code(s): I50.9 - HEART FAILURE, UNSPECIFIED (7) COPD (chronic obstructive pulmonary disease) Code(s): J44.9 - CHRONIC OBSTRUCTIVE PULMONARY DISEASE, UNSPECIFIED (8) COPD exacerbation Code(s): J44.1 - CHRONIC OBSTRUCTIVE PULMONARY DISEASE W (ACUTE) EXACERBATION (9) Cardiomyopathy Code(s): I42.9 - CARDIOMYOPATHY, UNSPECIFIED Qualifiers: Cardiomyopathy type: unspecified Qualified Code(s): I42.9 - Cardiomyopathy , unspecified (10) Cough Code(s): R05 - COUGH (11) Diabetes Code(s): E11.9 - TYPE 2 DIABETES MELLITUS WITHOUT COMPLICATIONS Qualifiers: Diabetes mellitus type: type 1 Diabetes mellitus complication status: with hyperglycemia Qualified Code(s): E10.65 - Type 1 diabetes mellitus with hyperglycemia (12) HTN (hypertension) Code(s): I10 - ESSENTIAL (PRIMARY) HYPERTENSION Qualifiers: Hypertension type: essential hypertension Qualified Code(s): I10 - Essential (primary) hypertension (13) Mediastinal lymphadenopathy Code(s): R59.0 - LOCALIZED ENLARGED LYMPH NODES (14) Smoker Code(s): F17.200 - NICOTINE DEPENDENCE, UNSPECIFIED, UNCOMPLICATED Assessment/Plan Medrol taper BD TX standing and PRN Lasix ABX O2 to maintain saturation 88% to 92% No smoking DR LOMELI
[2018-09-22] MEDS ORDERED: INSULIN (NOVOLOG) ASPART 100 UNITS/ML 10ML VIAL SQ ONE (18:00)
--- NOTE | 2018-09-22 21:30 | CONSULT ---
Consult Consult Specialty:: endocrine Referred by:: dr.ammir rojas Reason for Consultation:: diabetes mellitus hyperglycemia - History of Present Illness Chief Complaint: shortness of breath/high sugars History of Present Illness: 58 y/o woman with a PMHx of:DM 2,MORBID OBESITY, HTN, HLD, Chronic Systolic CHF (on Lasix), COPD (home O2- 2.5L). Who presents to the ED for increased SOB, [place] , B/L lower extremity edema x 1-2 days. Patient reports having frequent episodes of wheezing and chough. She reports running out of her O2. Patient reports having a productive cough with white-yellow phlegm and noted blood tinged sputum. Patient denies chest pain, palpitations. her sugars have been higher than usual despite poor appetite and increased insulin doses - Past Medical History Cardio/Vascular: Yes: CHF, HTN, Hyperlipdemia. No: AFIB, CAD Pulmonary: Yes: Asthma, COPD, O2 Dependent. No: Pneumonia, Previously Intubated , Pulmonary Embolus, Pulmonary Fibrosis, Sleep Apnea Gastrointestinal: Yes: GERD. No: Cancer Renal/: Yes: Renal Inusuff Endocrine: Yes: Diabetes Mellitus - Alcohol/Substance Use Hx Alcohol Use: No History of Substance Use: reports: None - Smoking History Smoking history: Current every day smoker Have you smoked in the past 12 months: Yes Aproximately how many cigarettes per day: 1 If you are a former smoker, when did you quit?: 1 month ago - Social History Usual Living Arrangement: With Spouse ADL: Independent History of Recent Travel: No Home Medications - Allergies Allergies/Adverse Reactions: Allergies Allergy/AdvReac Type Severity Reaction Status Date / Time No Known Allergies Allergy Verified 09/19/18 16:55 - Home Medications Home Medications: Ambulatory Orders Albuterol 2.5/Ipratropium 0.5 [Duoneb -] 1 neb NEB Q4H PRN #180 amp 05/03/17 Atorvastatin Ca [Lipitor] 10 mg PO HS #30 tab 05/03/17 Linaclotide [Linzess] 145 mcg PO DAILY #30 cap 05/03/17 Montelukast Na [Singulair -] 10 mg PO HS #30 tab 05/03/17 Esomeprazole Magnesium [Nexium 24Hr] 20 mg PO DAILY 04/20/18 Carvedilol [Coreg -] 6.25 mg PO BID #60 tablet 04/24/18 Furosemide [Lasix -] 40 mg PO DAILY #30 tablet 04/24/18 Insulin (Levemir) [Levemir Vial] 15 units SQ ACBK units 04/24/18 Insulin Sliding Scale [Novolog Vial Sliding Scale -] 1 vial SQ HS units Losartan Potassium [Cozaar -] 25 mg PO DAILY #30 tablet 04/24/18 Spironolactone [Aldactone -] 25 mg PO DAILY #30 tablet 04/24/18 Guaifenesin [Robitussin -] 10 ml PO Q4H PRN #1 bottle 05/02/18 Magnesium Hydrox 2400MG/30Ml [Milk of Magnesia -] 30 ml PO Q8H PRN #1 bot Polyethylene Glycol 3350 [Miralax 119 gm Btl -] 17 gm PO DAILY #1 bottle Sennosides [Senna -] 1 tab PO HS #30 tablet 05/02/18 Vancomycin 1,250 mg IVPB BID@0500,1700 #70 vial 05/02/18 Dapagliflozin Propanediol [Farxiga] 10 mg PO DAILY 09/20/18 Farxiga 10 mg PO DAILY 09/21/18 Xanax 2 mg PO BID 09/21/18 oxyCODONE HCL [Roxicodone -] 10 mg PO Q6H PRN MDD 6 09/21/18 Family Disease History - Family Disease History Family Disease History: Diabetes: Father, Brother Review of Systems - Review of Systems Constitutional: reports: Lethargy, Weakness Eyes: reports: Blurred Vision HENT: reports: Throat Pain Neck: reports: No Symptoms Cardiovascular: reports: Shortness of Breath Respiratory: reports: Exercise Intolerance, SOB on Exertion, Wheezing Gastrointestinal: reports: Bloating Genitourinary: reports: Frequency Breasts: reports: No Symptoms Reported Musculoskeletal: reports: Muscle Pain, Muscle Cramps Integumentary: reports: Rash Neurological: reports: Numbness Endocrine: reports: Excessive Sweating, Unexplained Weight Gain Physical Exam Vital Signs: Vital Signs Temperature 97.0 F L 09/22/18 10:00 Pulse Rate 100 H 09/22/18 10:00 Respiratory Rate 20 09/22/18 10:00 Blood Pressure 138/76 09/22/18 10:00 O2 Sat by Pulse Oximetry (%) 95 09/22/18 09:00 Constitutional: Yes: Anxious Eyes: Yes: EOM Intact HENT: Yes: Normocephalic Cardiovascular: Yes: Tachycardia Respiratory: Yes: Rhonchi, SOB, SOB on Exertion, Tachypnea, Wheezes Gastrointestinal: Yes: Normal Bowel Sounds, Abdomen, Obese ...Rectal Exam: Yes: Deferred Renal/: Yes: WNL Musculoskeletal: Yes: Back Pain, Muscle Weakness Extremities: Yes: Delayed Capillary Refill Edema: LLE: 3+, RLE: 3+ Integumentary: Yes: Onychomycosis, Venous Stasis Changes Labs: CBC, BMP 09/22/18 06:00 09/22/18 06:00 Problem List - Problems (1) Mediastinal lymphadenopathy Code(s): R59.0 - LOCALIZED ENLARGED LYMPH NODES (2) Shortness of breath Code(s): R06.02 - SHORTNESS OF BREATH (3) Smoker Code(s): F17.200 - NICOTINE DEPENDENCE, UNSPECIFIED, UNCOMPLICATED (4) Tobacco dependence Code(s): F17.200 - NICOTINE DEPENDENCE, UNSPECIFIED, UNCOMPLICATED (5) Uncontrolled diabetes mellitus Code(s): E11.65 - TYPE 2 DIABETES MELLITUS WITH HYPERGLYCEMIA (6) Abnormal liver enzymes Code(s): R74.8 - ABNORMAL LEVELS OF OTHER SERUM ENZYMES (7) Acute on chronic systolic (congestive) heart failure Code(s): I50.23 - ACUTE ON CHRONIC SYSTOLIC (CONGESTIVE) HEART FAILURE Assessment/Plan Current Active Problems Mediastinal lymphadenopathy (Acute) Shortness of breath (Acute) Smoker (Acute) Tobacco dependence (Acute) Uncontrolled diabetes mellitus (Acute) Abnormal Lab Results 09/22/18 09/22/18 06:00 06:00 WBC 18.3 H Hct 45.6 H RDW 17.6 H Sodium 134 L BUN 29 H Random Glucose 412 H* AST 8 L Alkaline Phosphatase 221 H Albumin 2.8 L Laboratory Results - last 24 hr 09/21/18 09/21/18 09/21/18 22:00 22:02 23:10 WBC RBC Hgb Hct MCV MCH MCHC RDW Plt Count MPV Sodium Potassium Chloride Carbon Dioxide Anion Gap BUN Creatinine Creat Clearance w eGFR POC Glucometer > 600 > 600 588 Random Glucose Calcium Total Bilirubin AST ALT Alkaline Phosphatase Total Protein Albumin 0209/22/18 09/22/18 03:37 05:44 06:00 WBC 18.3 H RBC 4.91 Hgb 14.7 Hct 45.6 H MCV 92.9 MCH 30.0 MCHC 32.3 RDW 17.6 H Plt Count 334 MPV 8.0 Sodium Potassium Chloride Carbon Dioxide Anion Gap BUN Creatinine Creat Clearance w eGFR POC Glucometer 511 427 Random Glucose Calcium Total Bilirubin AST ALT Alkaline Phosphatase Total Protein Albumin 09/22/18 09/22/18 09/22/18 06:00 06:39 11:47 WBC RBC Hgb Hct MCV MCH MCHC RDW Plt Count MPV Sodium 134 L Potassium 4.6 Chloride 98 Carbon Dioxide 27 Anion Gap 8 BUN 29 H Creatinine 1.1 Creat Clearance w eGFR 51.20 POC Glucometer 409 490 Random Glucose 412 H* Calcium 8.5 Total Bilirubin 0.6 AST 8 L ALT 22 Alkaline Phosphatase 221 H Total Protein 6.4 Albumin 2.8 L 09/22/18 16:48 WBC RBC Hgb Hct MCV MCH MCHC RDW Plt Count MPV Sodium Potassium Chloride Carbon Dioxide Anion Gap BUN Creatinine Creat Clearance w eGFR POC Glucometer 487 Random Glucose Calcium Total Bilirubin AST ALT Alkaline Phosphatase Total Protein Albumin plan; bgm qid novolog insulin novolog 70/30 tid doses ck [id number] levemir 20 units dose once now for hyperglycemia will need higher doses as steroid may be needed, for copd
[2018-09-22] MEDS: SENNOSIDES 8.6MG TABLET (FP) PO SCH (22:14)
[2018-09-22] MEDS: ATORVASTATIN CA 10 MG TABLET (FP) PO SCH (22:14)
[2018-09-23] MEDS ORDERED: Insulin (LOG) Aspart 100 UNITS/ML VIAL IV ONE (00:38)
[2018-09-23] MEDS: methylPREDNISolone NA SUCC 40 MG/1 ML VIAL IVPUSH SCH ×3 (02:35→21:48)
[2018-09-23] MEDS: FUROSEMIDE 40 MG TABLET (FP) PO SCH ×2 (06:34→13:34)
[2018-09-23] MEDS: INSULIN SLIDING SCALE (NOVOLOG) 1 VIAL SQ SCH ×4 (06:34→21:53)
[2018-09-23] MEDS: INSULIN (NOVOLOG MIX 70/30) 100 UNITS/ML MDV SQ SCH ×2 (06:36→16:28)
[2018-09-23] MEDS: INSULIN (LEVEMIR) 100 UNITS/ML UNITS SQ SCH (06:37)
[2018-09-23] MEDS: ALBUTEROL SO4 2.5/IPRATROPIUM 0.5 INH SOL 3 ML VIAL.NEB. NEB SCH ×4 (07:20→20:31)
[2018-09-23] MEDS ORDERED: DEXTROSE 5%-WATER - 50 ML IVPB ONE (09:42)
[2018-09-23] MEDS ORDERED: cefTRIAXone SODIUM 1 GM VIAL ONE (09:42)
[2018-09-23] MEDS: CEFTRIAXONE 1 GM in DEXTROSE 5%-WATER - 50 ML IVPB SCH (09:46)
[2018-09-23] MEDS: oxyCODONE HCL 5 MG TABLET PO PRN ×2 (09:47→21:57)
[2018-09-23] MEDS: NICOTINE 7 MG/24 HOURS TOPICAL PATCH TD SCH (09:47)
[2018-09-23] MEDS: guaiFENesin 200 MG/10 ML 10 ML UNIT-DOSE CUPS PO PRN ×2 (09:47→21:48)
[2018-09-23] MEDS: SPIRONOLACTONE 25 MG TABLET (FP) PO SCH (09:47)
[2018-09-23] MEDS: CARVEDILOL 6.25 MG TABLET (FP) PO SCH ×2 (09:48→21:47)
[2018-09-23] MEDS: LOSARTAN POTASSIUM 25 MG TABLET PO SCH (09:48)
[2018-09-23] MEDS: POLYETHYLENE GLYCOL 3350 119 GM BTL PO SCH (10:23)
--- NOTE | 2018-09-23 12:36 | PN ---
Progress Note, Physician - Current Medication List Current Medications: Active Medications Albuterol Sulfate (Ventolin 0.083% Nebulizer Soln -) 1 amp NEB Q4H PRN PRN Reason: SHORT OF BREATH/WHEEZING Albuterol/Ipratropium (Duoneb -) 1 amp NEB RQID [facility] Last Admin: 09/23/18 11:30 Dose: 1 amp Albuterol/Ipratropium (Duoneb -) 1 amp NEB Q4H PRN PRN Reason: ASTHMA Atorvastatin Calcium (Lipitor -) 10 mg PO HS [facility] Last Admin: 09/22/18 22:14 Dose: 10 mg Carvedilol (Coreg -) 6.25 mg PO BID [facility] Last Admin: 09/23/18 09:48 Dose: 6.25 mg Furosemide (Lasix -) 40 mg PO BID@0600,1400 [facility] Last Admin: 09/23/18 06:34 Dose: 40 mg Guaifenesin (Robitussin -) 10 ml PO Q4H PRN PRN Reason: COUGH Last Admin: 09/23/18 09:47 Dose: 10 ml Ceftriaxone Sodium 1 gm/ (Dextrose) 50 mls @ 100 mls/hr IVPB DAILY [facility]; Protocol Last Admin: 09/23/18 09:46 Dose: 100 mls/hr Insulin Aspart (Novolog Vial Sliding Scale -) 1 vial SQ ACHS [facility]; Protocol Last Admin: 09/23/18 11:42 Dose: 9 units Insulin Aspart (Novolog Mix 70/30 Vial) 30 units SQ BIDAC [facility] Last Admin: 09/23/18 06:36 Dose: 30 units Insulin Detemir (Levemir Vial) 40 units SQ ACBK [facility] Last Admin: 09/23/18 06:37 Dose: 40 units Losartan Potassium (Cozaar -) 25 mg PO DAILY [facility] Last Admin: 09/23/18 09:48 Dose: 25 mg Magnesium Hydroxide (Milk Of Magnesia -) 30 ml PO Q8H PRN PRN Reason: INDIGESTION Last Admin: 09/22/18 14:32 Dose: 30 ml Methylprednisolone Sodium Succinate (Solu-Medrol -) 40 mg IVPUSH Q8H-IV [facility] Last Admin: 09/23/18 09:48 Dose: 40 mg Nicotine (Nicoderm Patch -) 7 mg TD DAILY [facility] Last Admin: 02/10/19 09:47 Dose: 7 mg Oxycodone HCl (Roxicodone -) 10 mg PO Q6H PRN PRN Reason: PAIN LEVEL 6-10 Last Admin: 09/23/18 09:47 Dose: 10 mg Polyethylene Glycol (Miralax (For Daily Use) -) 17 gm PO DAILY [facility] Last Admin: 09/23/18 10:23 Dose: 17 gm Senna (Senna -) 1 tab PO HS [facility] Last Admin: 09/22/18 22:14 Dose: 1 tab Spironolactone (Aldactone -) 25 mg PO DAILY [facility] Last Admin: 09/23/18 09:47 Dose: 25 mg - Objective Vital Signs: Vital Signs Temperature 97.9 F 09/23/18 10:00 Pulse Rate 85 09/23/18 10:00 Respiratory Rate 18 09/23/18 10:00 Blood Pressure 142/83 09/23/18 10:00 O2 Sat by Pulse Oximetry (%) 94 L 09/23/18 09:00 Cardiovascular: Yes: Regular Rate and Rhythm Respiratory: Yes: On Nasal O2, Rales Gastrointestinal: Yes: Normal Bowel Sounds, Soft Labs: CBC, BMP 09/22/18 06:00 09/22/18 06:00 Problem List - Problems (1) COPD exacerbation Assessment/Plan: iv steroids nebs pulm Code(s): J44.1 - CHRONIC OBSTRUCTIVE PULMONARY DISEASE W (ACUTE) EXACERBATION (2) Acute on chronic systolic (congestive) heart failure Assessment/Plan: lasix cardio Code(s): I50.23 - ACUTE ON CHRONIC SYSTOLIC (CONGESTIVE) HEART FAILURE (3) Mediastinal lymphadenopathy Assessment/Plan: per pulm Code(s): R59.0 - LOCALIZED ENLARGED LYMPH NODES (4) Uncontrolled diabetes mellitus Assessment/Plan: increase levemir endo bgm Code(s): E11.65 - TYPE 2 DIABETES MELLITUS WITH HYPERGLYCEMIA (5) Pneumonia Assessment/Plan: IV abx id consult Code(s): J18.9 - PNEUMONIA, UNSPECIFIED ORGANISM
--- NOTE | 2018-09-23 14:49 | PN ---
Progress Note, Physician History of Present Illness: pulmonary alert,no distress,-sob,less cough - Current Medication List Current Medications: Active Medications Albuterol Sulfate (Ventolin 0.083% Nebulizer Soln -) 1 amp NEB Q4H PRN PRN Reason: SHORT OF BREATH/WHEEZING Albuterol/Ipratropium (Duoneb -) 1 amp NEB RQID [facility] Last Admin: 09/23/18 11:30 Dose: 1 amp Albuterol/Ipratropium (Duoneb -) 1 amp NEB Q4H PRN PRN Reason: ASTHMA Atorvastatin Calcium (Lipitor -) 10 mg PO HS [facility] Last Admin: 09/22/18 22:14 Dose: 10 mg Carvedilol (Coreg -) 6.25 mg PO BID [facility] Last Admin: 09/23/18 09:48 Dose: 6.25 mg Furosemide (Lasix -) 40 mg PO BID@0600,1400 [facility] Last Admin: 09/23/18 13:34 Dose: 40 mg Guaifenesin (Robitussin -) 10 ml PO Q4H PRN PRN Reason: COUGH Last Admin: 09/23/18 09:47 Dose: 10 ml Ceftriaxone Sodium 1 gm/ (Dextrose) 50 mls @ 100 mls/hr IVPB DAILY [facility]; Protocol Last Admin: 09/23/18 09:46 Dose: 100 mls/hr Insulin Aspart (Novolog Vial Sliding Scale -) 1 vial SQ ACHS [facility]; Protocol Last Admin: 09/23/18 11:42 Dose: 9 units Insulin Aspart (Novolog Mix 70/30 Vial) 30 units SQ BIDAC [facility] Last Admin: 09/23/18 06:36 Dose: 30 units Insulin Detemir (Levemir Vial) 40 units SQ ACBK [facility] Last Admin: 09/23/18 06:37 Dose: 40 units Losartan Potassium (Cozaar -) 25 mg PO DAILY [facility] Last Admin: 09/23/18 09:48 Dose: 25 mg Magnesium Hydroxide (Milk Of Magnesia -) 30 ml PO Q8H PRN PRN Reason: INDIGESTION Last Admin: 09/22/18 14:32 Dose: 30 ml Methylprednisolone Sodium Succinate (Solu-Medrol -) 40 mg IVPUSH Q8H-IV [facility] Last Admin: 09/23/18 09:48 Dose: 40 mg Nicotine (Nicoderm Patch -) 7 mg TD DAILY [facility] Last Admin: 09/23/18 09:47 Dose: 7 mg Oxycodone HCl (Roxicodone -) 10 mg PO Q6H PRN PRN Reason: PAIN LEVEL 6-10 Last Admin: 09/23/18 09:47 Dose: 10 mg Polyethylene Glycol (Miralax (For Daily Use) -) 17 gm PO DAILY [facility] Last Admin: 09/23/18 10:23 Dose: 17 gm Senna (Senna -) 1 tab PO HS [facility] Last Admin: 09/22/18 22:14 Dose: 1 tab Spironolactone (Aldactone -) 25 mg PO DAILY [facility] Last Admin: 09/23/18 09:47 Dose: 25 mg - Objective Vital Signs: Vital Signs Temperature 97.9 F 09/23/18 10:00 Pulse Rate 85 09/23/18 10:00 Respiratory Rate 18 09/23/18 10:00 Blood Pressure 142/83 09/23/18 10:00 O2 Sat by Pulse Oximetry (%) 94 L 09/23/18 09:00 Constitutional: Yes: Well Nourished, Calm Eyes: Yes: WNL HENT: Yes: WNL Neck: Yes: WNL Cardiovascular: Yes: Regular Rate and Rhythm, S1, S2 Respiratory: Yes: Diminished Gastrointestinal: Yes: Normal Bowel Sounds, Soft Extremities: Yes: WNL Edema: No Labs: CBC, BMP 09/22/18 06:00 09/22/18 06:00 Assessment/Plan Problem List - Problems (1) Shortness of breath Code(s): R06.02 - SHORTNESS OF BREATH (2) Tobacco dependence Code(s): F17.200 - NICOTINE DEPENDENCE, UNSPECIFIED, UNCOMPLICATED (3) Uncontrolled diabetes mellitus Code(s): E11.65 - TYPE 2 DIABETES MELLITUS WITH HYPERGLYCEMIA (4) Acute on chronic systolic (congestive) heart failure Code(s): I50.23 - ACUTE ON CHRONIC SYSTOLIC (CONGESTIVE) HEART FAILURE (5) Asthmatic bronchitis Code(s): J45.909 - UNSPECIFIED ASTHMA, UNCOMPLICATED (6) CHF (congestive heart failure) Code(s): I50.9 - HEART FAILURE, UNSPECIFIED (7) COPD (chronic obstructive pulmonary disease) Code(s): J44.9 - CHRONIC OBSTRUCTIVE PULMONARY DISEASE, UNSPECIFIED (8) COPD exacerbation Code(s): J44.1 - CHRONIC OBSTRUCTIVE PULMONARY DISEASE W (ACUTE) EXACERBATION (9) Cardiomyopathy Code(s): I42.9 - CARDIOMYOPATHY, UNSPECIFIED Qualifiers: Cardiomyopathy type: unspecified Qualified Code(s): I42.9 - Cardiomyopathy , unspecified (10) Cough Code(s): R05 - COUGH (11) Diabetes Code(s): E11.9 - TYPE 2 DIABETES MELLITUS WITHOUT COMPLICATIONS Qualifiers: Diabetes mellitus type: type 1 Diabetes mellitus complication status: with hyperglycemia Qualified Code(s): E10.65 - Type 1 diabetes mellitus with hyperglycemia (12) HTN (hypertension) Code(s): I10 - ESSENTIAL (PRIMARY) HYPERTENSION Qualifiers: Hypertension type: essential hypertension Qualified Code(s): I10 - Essential (primary) hypertension (13) Mediastinal lymphadenopathy Code(s): R59.0 - LOCALIZED ENLARGED LYMPH NODES (14) Smoker Code(s): F17.200 - NICOTINE DEPENDENCE, UNSPECIFIED, UNCOMPLICATED Assessment/Plan Medrol taper BD TX standing and PRN Lasix ABX O2 to maintain saturation 88% to 92% No smoking DR LOMELI
[2018-09-23] MEDS ORDERED: INSULIN (NOVOLOG) ASPART 100 UNITS/ML 10ML VIAL ONE ×2 (16:31→21:40)
[2018-09-23] MEDS: SENNOSIDES 8.6MG TABLET (FP) PO SCH (21:47)
[2018-09-23] MEDS: ATORVASTATIN CA 10 MG TABLET (FP) PO SCH (21:47)
[2018-09-24] MEDS: FUROSEMIDE 40 MG TABLET (FP) PO SCH ×2 (06:33→14:17)
[2018-09-24] MEDS: INSULIN (LEVEMIR) 100 UNITS/ML UNITS SQ SCH (06:34)
[2018-09-24] MEDS: INSULIN (NOVOLOG MIX 70/30) 100 UNITS/ML MDV SQ SCH ×2 (06:35→16:59)
[2018-09-24] MEDS: INSULIN SLIDING SCALE (NOVOLOG) 1 VIAL SQ SCH ×4 (06:35→22:29)
[2018-09-24] MEDS: guaiFENesin 200 MG/10 ML 10 ML UNIT-DOSE CUPS PO PRN ×2 (06:39→22:29)
[2018-09-24] MEDS: ALBUTEROL SO4 2.5/IPRATROPIUM 0.5 INH SOL 3 ML VIAL.NEB. NEB SCH ×4 (07:25→20:21)
[2018-09-24] MEDS ORDERED: cefTRIAXone SODIUM 1 GM VIAL ONE (10:57)
[2018-09-24] MEDS ORDERED: DEXTROSE 5%-WATER - 50 ML IVPB ONE (10:57)
[2018-09-24] MEDS: NICOTINE 7 MG/24 HOURS TOPICAL PATCH TD SCH (11:05)
[2018-09-24] MEDS: POLYETHYLENE GLYCOL 3350 119 GM BTL PO SCH (11:05)
[2018-09-24] MEDS: methylPREDNISolone NA SUCC 40 MG/1 ML VIAL IVPUSH SCH ×2 (11:05→22:29)
[2018-09-24] MEDS: CEFTRIAXONE 1 GM in DEXTROSE 5%-WATER - 50 ML IVPB SCH (11:05)
[2018-09-24] MEDS: LOSARTAN POTASSIUM 25 MG TABLET PO SCH (11:05)
[2018-09-24] MEDS: CARVEDILOL 6.25 MG TABLET (FP) PO SCH ×2 (11:05→22:28)
[2018-09-24] MEDS: SPIRONOLACTONE 25 MG TABLET (FP) PO SCH (11:06)
--- NOTE | 2018-09-24 11:14 | PN ---
Progress Note, Physician Chief Complaint: Mediastinal lymphadenopathy SOB Acute on chronic congestive heart failure History of Present Illness: Previous notes and events reviewed awake and alert NAD patient states breathing has improved but continues with productive cough elev WBC 18.3 - Current Medication List Current Medications: Active Medications Albuterol Sulfate (Ventolin 0.083% Nebulizer Soln -) 1 amp NEB Q4H PRN PRN Reason: SHORT OF BREATH/WHEEZING Albuterol/Ipratropium (Duoneb -) 1 amp NEB RQID [facility] Last Admin: 09/24/18 11:04 Dose: 1 amp Albuterol/Ipratropium (Duoneb -) 1 amp NEB Q4H PRN PRN Reason: ASTHMA Atorvastatin Calcium (Lipitor -) 10 mg PO HS [facility] Last Admin: 09/23/18 21:47 Dose: 10 mg Carvedilol (Coreg -) 6.25 mg PO BID [facility] Last Admin: 09/24/18 11:05 Dose: 6.25 mg Furosemide (Lasix -) 40 mg PO BID@0600,1400 [facility] Last Admin: 09/24/18 06:33 Dose: 40 mg Guaifenesin (Robitussin -) 10 ml PO Q4H PRN PRN Reason: COUGH Last Admin: 09/24/18 06:39 Dose: 10 ml Ceftriaxone Sodium 1 gm/ (Dextrose) 50 mls @ 100 mls/hr IVPB DAILY [facility]; Protocol Last Admin: 09/24/18 11:05 Dose: 100 mls/hr Insulin Aspart (Novolog Vial Sliding Scale -) 1 vial SQ ACHS [facility]; Protocol Last Admin: 09/24/18 06:35 Dose: 8 units Insulin Aspart (Novolog Mix 70/30 Vial) 30 units SQ BIDAC [facility] Last Admin: 09/24/18 06:35 Dose: 30 units Insulin Detemir (Levemir Vial) 40 units SQ ACBK [facility] Last Admin: 09/24/18 06:34 Dose: 40 units Losartan Potassium (Cozaar -) 25 mg PO DAILY [facility] Last Admin: 09/24/18 11:05 Dose: 25 mg Magnesium Hydroxide (Milk Of Magnesia -) 30 ml PO Q8H PRN PRN Reason: INDIGESTION Last Admin: 09/22/18 14:32 Dose: 30 ml Methylprednisolone Sodium Succinate (Solu-Medrol -) 40 mg IVPUSH Q12H [facility] Last Admin: 09/24/18 11:05 Dose: 40 mg Nicotine (Nicoderm Patch -) 7 mg TD DAILY [facility] Last Admin: 09/24/18 11:05 Dose: 7 mg Oxycodone HCl (Roxicodone -) 10 mg PO Q6H PRN PRN Reason: PAIN LEVEL 6-10 Last Admin: 09/23/18 21:57 Dose: 10 mg Polyethylene Glycol (Miralax (For Daily Use) -) 17 gm PO DAILY [facility] Last Admin: 09/24/18 11:05 Dose: 17 gm Senna (Senna -) 1 tab PO HS [facility] Last Admin: 09/23/18 21:47 Dose: 1 tab Spironolactone (Aldactone -) 25 mg PO DAILY [facility] Last Admin: 09/24/18 11:06 Dose: 25 mg - Objective Vital Signs: Vital Signs Temperature 97.3 F L 09/24/18 06:56 Pulse Rate 103 H 09/24/18 06:56 Respiratory Rate 20 09/24/18 06:56 Blood Pressure 141/92 09/24/18 06:56 O2 Sat by Pulse Oximetry (%) 93 L 09/23/18 21:00 Constitutional: Yes: No Distress, Calm Eyes: Yes: Conjunctiva Clear Cardiovascular: Yes: Tachycardia Respiratory: Yes: Diminished Gastrointestinal: Yes: Normal Bowel Sounds, Soft, Abdomen, Obese, Tenderness ( RLQ) Musculoskeletal: Yes: WNL Extremities: Yes: WNL Edema: Yes Edema: LLE: Trace, RLE: 1+ (pedal) Neurological: Yes: Alert, Oriented Psychiatric: Yes: Alert, Oriented Labs: CBC, BMP 09/22/18 06:00 09/22/18 06:00 Problem List - Problems (1) Mediastinal lymphadenopathy Assessment/Plan: -pulmonary on board -Chest CT scan reviewed-show infiltrates will start on ceftriaxone 1g IVPB Code(s): R59.0 - LOCALIZED ENLARGED LYMPH NODES (2) Shortness of breath Assessment/Plan: -pulmonary on board -continue methylprednisone 40mg q12h IVPB -albuterol neb tx PRN -O2 via NC PRN Code(s): R06.02 - SHORTNESS OF BREATH (3) Uncontrolled diabetes mellitus Assessment/Plan: -BGM ACHS, ISS -endocrinology on board -cont with levemir, Novolog 70/30 BID -diabetic diet Code(s): E11.65 - TYPE 2 DIABETES MELLITUS WITH HYPERGLYCEMIA (4) Acute on chronic systolic (congestive) heart failure Assessment/Plan: -cardiology on board -lasix PO bid -1L fluid restriction -daily weights Code(s): I50.23 - ACUTE ON CHRONIC SYSTOLIC (CONGESTIVE) HEART FAILURE (5) HTN (hypertension) Assessment/Plan: -continue with coreg -low Na diet Code(s): I10 - ESSENTIAL (PRIMARY) HYPERTENSION Qualifiers: Hypertension type: essential hypertension Qualified Code(s): I10 - Essential (primary) hypertension (6) Abdominal pain Assessment/Plan: -Abdominal US ordered Code(s): R10.9 - UNSPECIFIED ABDOMINAL PAIN (7) Leukocytosis Assessment/Plan: -ID consult, pending recommendations -will monitor CBC for downtrend of WBC Code(s): D72.829 - ELEVATED WHITE BLOOD CELL COUNT, UNSPECIFIED
--- NOTE | 2018-09-24 11:53 | PN ---
Progress Note (short form) - Note Progress Note: ID consult dictated imp/reccd leukocytosis LLL pneumonia history of MRSA bacteremia 05/01 suspect leukocytosis is multifactorial and may at least partially be due to steroids would get blood cultures and urinary antigens for pneumonia, continue ceftriaxone for now as she reports improvement in her breathing status Problem List - Problems (1) Leukocytosis Code(s): D72.829 - ELEVATED WHITE BLOOD CELL COUNT, UNSPECIFIED (2) Pneumonia Code(s): J18.9 - PNEUMONIA, UNSPECIFIED ORGANISM (3) MRSA infection greater than 3 months ago Code(s): Z86.14 - PERSONAL HISTORY OF METHICILLIN RESIS STAPH INFECTION
--- NOTE | 2018-09-24 13:13 | PN ---
Progress Note, Physician History of Present Illness: pulmonary alert,no distress,-sob - Current Medication List Current Medications: Active Medications Albuterol Sulfate (Ventolin 0.083% Nebulizer Soln -) 1 amp NEB Q4H PRN PRN Reason: SHORT OF BREATH/WHEEZING Albuterol/Ipratropium (Duoneb -) 1 amp NEB RQID [facility] Last Admin: 09/24/18 11:04 Dose: 1 amp Albuterol/Ipratropium (Duoneb -) 1 amp NEB Q4H PRN PRN Reason: ASTHMA Atorvastatin Calcium (Lipitor -) 10 mg PO HS [facility] Last Admin: 09/23/18 21:47 Dose: 10 mg Carvedilol (Coreg -) 6.25 mg PO BID [facility] Last Admin: 09/24/18 11:05 Dose: 6.25 mg Furosemide (Lasix -) 40 mg PO BID@0600,1400 [facility] Last Admin: 09/24/18 06:33 Dose: 40 mg Guaifenesin (Robitussin -) 10 ml PO Q4H PRN PRN Reason: COUGH Last Admin: 09/24/18 06:39 Dose: 10 ml Ceftriaxone Sodium 1 gm/ (Dextrose) 50 mls @ 100 mls/hr IVPB DAILY [facility]; Protocol Last Admin: 09/24/18 11:05 Dose: 100 mls/hr Insulin Aspart (Novolog Vial Sliding Scale -) 1 vial SQ ACHS [facility]; Protocol Last Admin: 09/24/18 11:50 Dose: 9 units Insulin Aspart (Novolog Mix 70/30 Vial) 30 units SQ BIDAC [facility] Last Admin: 09/24/18 06:35 Dose: 30 units Insulin Detemir (Levemir Vial) 40 units SQ ACBK [facility] Last Admin: 09/24/18 06:34 Dose: 40 units Losartan Potassium (Cozaar -) 25 mg PO DAILY [facility] Last Admin: 09/24/18 11:05 Dose: 25 mg Magnesium Hydroxide (Milk Of Magnesia -) 30 ml PO Q8H PRN PRN Reason: INDIGESTION Last Admin: 09/22/18 14:32 Dose: 30 ml Methylprednisolone Sodium Succinate (Solu-Medrol -) 40 mg IVPUSH Q12H [facility] Last Admin: 09/24/18 11:05 Dose: 40 mg Nicotine (Nicoderm Patch -) 7 mg TD DAILY [facility] Last Admin: 09/24/18 11:05 Dose: 7 mg Oxycodone HCl (Roxicodone -) 10 mg PO Q6H PRN PRN Reason: PAIN LEVEL 6-10 Last Admin: 09/23/18 21:57 Dose: 10 mg Polyethylene Glycol (Miralax (For Daily Use) -) 17 gm PO DAILY [facility] Last Admin: 09/24/18 11:05 Dose: 17 gm Senna (Senna -) 1 tab PO HS [facility] Last Admin: 09/23/18 21:47 Dose: 1 tab Spironolactone (Aldactone -) 25 mg PO DAILY [facility] Last Admin: 09/24/18 11:06 Dose: 25 mg - Objective Vital Signs: Vital Signs Temperature 97.3 F L 09/24/18 06:56 Pulse Rate 86 09/24/18 10:00 Respiratory Rate 18 09/24/18 10:00 Blood Pressure 144/70 09/24/18 10:00 O2 Sat by Pulse Oximetry (%) 93 L 09/23/18 21:00 Constitutional: Yes: Well Nourished, Calm Eyes: Yes: WNL HENT: Yes: WNL Neck: Yes: WNL Cardiovascular: Yes: Regular Rate and Rhythm, S1, S2 Respiratory: Yes: Diminished, Rales (crackles r base) Gastrointestinal: Yes: Normal Bowel Sounds, Soft Extremities: Yes: WNL Edema: No Labs: CBC, BMP 09/22/18 06:00 09/22/18 06:00 Assessment/Plan Problem List - Problems (1) Shortness of breath Code(s): R06.02 - SHORTNESS OF BREATH (2) Tobacco dependence Code(s): F17.200 - NICOTINE DEPENDENCE, UNSPECIFIED, UNCOMPLICATED (3) Uncontrolled diabetes mellitus Code(s): E11.65 - TYPE 2 DIABETES MELLITUS WITH HYPERGLYCEMIA (4) Acute on chronic systolic (congestive) heart failure Code(s): I50.23 - ACUTE ON CHRONIC SYSTOLIC (CONGESTIVE) HEART FAILURE (5) Asthmatic bronchitis Code(s): J45.909 - UNSPECIFIED ASTHMA, UNCOMPLICATED (6) CHF (congestive heart failure) Code(s): I50.9 - HEART FAILURE, UNSPECIFIED (7) COPD (chronic obstructive pulmonary disease) Code(s): J44.9 - CHRONIC OBSTRUCTIVE PULMONARY DISEASE, UNSPECIFIED (8) COPD exacerbation Code(s): J44.1 - CHRONIC OBSTRUCTIVE PULMONARY DISEASE W (ACUTE) EXACERBATION (9) Cardiomyopathy Code(s): I42.9 - CARDIOMYOPATHY, UNSPECIFIED Qualifiers: Cardiomyopathy type: unspecified Qualified Code(s): I42.9 - Cardiomyopathy , unspecified (10) Cough Code(s): R05 - COUGH (11) Diabetes Code(s): E11.9 - TYPE 2 DIABETES MELLITUS WITHOUT COMPLICATIONS Qualifiers: Diabetes mellitus type: type 1 Diabetes mellitus complication status: with hyperglycemia Qualified Code(s): E10.65 - Type 1 diabetes mellitus with hyperglycemia (12) HTN (hypertension) Code(s): I10 - ESSENTIAL (PRIMARY) HYPERTENSION Qualifiers: Hypertension type: essential hypertension Qualified Code(s): I10 - Essential (primary) hypertension (13) Mediastinal lymphadenopathy Code(s): R59.0 - LOCALIZED ENLARGED LYMPH NODES (14) Smoker Code(s): F17.200 - NICOTINE DEPENDENCE, UNSPECIFIED, UNCOMPLICATED Assessment/Plan Medrol BD TX standing and PRN Lasix ABX O2 to maintain saturation 88% to 92% No smoking DR LOMELI
--- NOTE | 2018-09-24 17:25 | CONS ---
DATE OF CONSULTATION: DATE OF DICTATION: 09/24/2018 REQUESTING PHYSICIAN: Ronnie Winkler M.D. CONSULTING PHYSICIAN: Milli Davis M.D. HISTORY OF PRESENT ILLNESS: This is a 58-year-old woman. She lives in the community. She has a past medical history of COPD. She has a history as well of heart failure and diabetes. She is on oxygen at home. She presents with increasing bilateral lower extremity edema and shortness of breath. On the , she was noted to have on CAT scan evidence of a left lower lobe infiltrate along with diuretics and steroids. She was treated with antibiotics. She got 1 dose of Levaquin and has been on ceftriaxone. Today is now day 5 of antibiotics. I am to see her for a persistent white count. She reports her pulmonary symptoms are improved. She is less short of breath. She has less cough. PAST MEDICAL HISTORY: Notable for heart failure, hypertension, hyperlipidemia, asthma, COPD. She uses oxygen at home 2.5 L. She has a history of diabetes, renal insufficiency, and GERD. Of note in April she had a positive blood culture for MRSA that was felt to be secondary to phlebitis, and she was treated for 1 month with vancomycin via a PICC line. SOCIAL HISTORY: She is still an active smoker. She lives alone. She is originally from [place]. There is no history of any recent travel. She has no allergies. Her medications as an outpatient include nebulizer treatment, Lipitor, , Singulair, Nexium, Coreg, furosemide, insulin, Cozaar, spironolactone, senna, and apparently Roxicodone p.r.n. FAMILY HISTORY: Notable for diabetes. REVIEW OF SYSTEMS: She reports improvement in her respiratory symptoms. She denies any fevers or chills. PHYSICAL EXAMINATION: VITAL SIGNS: Temperature 97.3, pulse 103, blood pressure 141/92, respiratory rate 20, she weighs 97 kg. HEENT: Normocephalic. Eyes are anicteric. She has no thrush. LUNGS: Diminished breath sounds at the bases. HEART: Regular rate and rhythm. ABDOMEN: Soft, nontender. EXTREMITIES: Without edema. She has a well healed cholecystectomy scar in the right upper quadrant. SKIN: Notable for she has sort of a raised rash on her left hand, as well she has evidence of a cervicodorsal hump. LABORATORY: Notable for a white count of 18.3, hemoglobin 14.7, platelets 337. BUN and creatinine are 34 and 1.3. LFTs are notable for an alkaline phosphatase of 199. Urinalysis is negative. Urine toxicology screen is negative. No cultures have been sent. IMPRESSION: In summary, this is a 58-year-old female with leukocytosis, left lower lobe pneumonia, history of in April of 2018. I would treat it with vancomycin for 1 month. I would suspect her leukocytosis, multifactorial, and may be at least partly due to steroids. Would get blood cultures and urinary antigens for pneumonia, continue ceftriaxone for now, as she reports improvement in her breathing status. Further recommendations to follow. MILLI DAVIS M.D. [id number]
[2018-09-24] MEDS ORDERED: INSULIN (NOVOLOG) ASPART 100 UNITS/ML 10ML VIAL ONE (22:26)
[2018-09-24] MEDS: SENNOSIDES 8.6MG TABLET (FP) PO SCH (22:28)
[2018-09-24] MEDS: oxyCODONE HCL 5 MG TABLET PO PRN (22:28)
[2018-09-24] MEDS: ATORVASTATIN CA 10 MG TABLET (FP) PO SCH (22:28)
[2018-09-25] MEDS: FUROSEMIDE 40 MG TABLET (FP) PO SCH ×2 (05:58→13:27)
--- NOTE | 2018-09-25 09:03 | PN ---
Progress Note, Physician Chief Complaint: TRANSFERRING TO RADIOLOGY FOR ABD SONO AWAKE ALERT MILD DISTRESS - Current Medication List Current Medications: Active Medications Albuterol Sulfate (Ventolin 0.083% Nebulizer Soln -) 1 amp NEB Q4H PRN PRN Reason: SHORT OF BREATH/WHEEZING Albuterol/Ipratropium (Duoneb -) 1 amp NEB Q4H PRN PRN Reason: ASTHMA Atorvastatin Calcium (Lipitor -) 10 mg PO HS [facility] Last Admin: 09/24/18 22:28 Dose: 10 mg Carvedilol (Coreg -) 6.25 mg PO BID [facility] Last Admin: 09/24/18 22:28 Dose: 6.25 mg Furosemide (Lasix -) 40 mg PO BID@0600,1400 [facility] Last Admin: 09/25/18 05:58 Dose: 40 mg Guaifenesin (Robitussin -) 10 ml PO Q4H PRN PRN Reason: COUGH Last Admin: 09/24/18 22:29 Dose: 10 ml Ceftriaxone Sodium 1 gm/ (Dextrose) 50 mls @ 100 mls/hr IVPB DAILY [facility]; Protocol Last Admin: 09/24/18 11:05 Dose: 100 mls/hr Insulin Aspart (Novolog Vial Sliding Scale -) 1 vial SQ ACHS [facility]; Protocol Last Admin: 09/24/18 22:29 Dose: 12 units Insulin Aspart (Novolog Mix 70/30 Vial) 30 units SQ BIDAC [facility] Last Admin: 09/24/18 16:59 Dose: 30 units Insulin Detemir (Levemir Vial) 40 units SQ ACBK [facility] Last Admin: 09/24/18 06:34 Dose: 40 units Losartan Potassium (Cozaar -) 25 mg PO DAILY [facility] Last Admin: 09/24/18 11:05 Dose: 25 mg Magnesium Hydroxide (Milk Of Magnesia -) 30 ml PO Q8H PRN PRN Reason: INDIGESTION Last Admin: 09/22/18 14:32 Dose: 30 ml Methylprednisolone Sodium Succinate (Solu-Medrol -) 40 mg IVPUSH Q12H [facility] Last Admin: 09/24/18 22:29 Dose: 40 mg Nicotine (Nicoderm Patch -) 7 mg TD DAILY [facility] Last Admin: 09/24/18 11:05 Dose: 7 mg Oxycodone HCl (Roxicodone -) 10 mg PO Q6H PRN PRN Reason: PAIN LEVEL 6-10 Last Admin: 09/24/18 22:28 Dose: 10 mg Polyethylene Glycol (Miralax (For Daily Use) -) 17 gm PO DAILY [facility] Last Admin: 09/24/18 11:05 Dose: 17 gm Senna (Senna -) 1 tab PO HS [facility] Last Admin: 09/24/18 22:28 Dose: 1 tab Spironolactone (Aldactone -) 25 mg PO DAILY [facility] Last Admin: 09/24/18 11:06 Dose: 25 mg - Objective Vital Signs: Vital Signs Temperature 97.7 F 09/25/18 05:16 Pulse Rate 92 H 09/25/18 05:16 Respiratory Rate 20 09/25/18 05:16 Blood Pressure 148/92 09/25/18 05:16 O2 Sat by Pulse Oximetry (%) 94 L 09/24/18 21:00 Constitutional: Yes: Mild Distress Eyes: Yes: WNL HENT: Yes: WNL Neck: Yes: WNL Cardiovascular: Yes: Regular Rate and Rhythm Respiratory: Yes: WNL Gastrointestinal: Yes: Abdomen, Obese Genitourinary: Yes: WNL Musculoskeletal: Yes: Muscle Pain Edema: No Peripheral Pulses WNL: Yes Wound/Incision: Yes: Clean/Dry Neurological: Yes: WNL ...Motor Strength: WNL Psychiatric: Yes: WNL Labs: CBC, BMP 09/22/18 06:00 09/22/18 06:00 Problem List - Problems (1) Non-compliance with treatment Code(s): Z91.19 - PATIENT'S NONCOMPLIANCE W OTH MEDICAL TREATMENT AND REGIMEN (2) Abdominal pain Code(s): R10.9 - UNSPECIFIED ABDOMINAL PAIN (3) Leukocytosis Code(s): D72.829 - ELEVATED WHITE BLOOD CELL COUNT, UNSPECIFIED (4) Shortness of breath Code(s): R06.02 - SHORTNESS OF BREATH (5) Smoker Code(s): F17.200 - NICOTINE DEPENDENCE, UNSPECIFIED, UNCOMPLICATED (6) Uncontrolled diabetes mellitus Code(s): E11.65 - TYPE 2 DIABETES MELLITUS WITH HYPERGLYCEMIA (7) Abnormal liver enzymes Code(s): R74.8 - ABNORMAL LEVELS OF OTHER SERUM ENZYMES (8) Diabetes Code(s): E11.9 - TYPE 2 DIABETES MELLITUS WITHOUT COMPLICATIONS Qualifiers: Diabetes mellitus type: type 1 Diabetes mellitus complication status: with hyperglycemia Qualified Code(s): E10.65 - Type 1 diabetes mellitus with hyperglycemia (9) Hyperglycemia Code(s): R73.9 - HYPERGLYCEMIA, UNSPECIFIED (10) Toxic metabolic encephalopathy Code(s): G92 - TOXIC ENCEPHALOPATHY Assessment/Plan PATIENT SEEN GOING TO [facility] FOR CANDY AND CHIPS COMPLIANCE DISCUSSED WITH PATIENT DIETARY CONSULT ON DM EDUCATION. ENDOCRINE CONSULT DM CONTROL SONO ABD ID W/UP FOR LEUKOCYTOSIS PAIN CONTROL
[2018-09-25] MEDS ORDERED: cefTRIAXone SODIUM 1 GM VIAL ONE (09:45)
[2018-09-25] MEDS ORDERED: DEXTROSE 5%-WATER - 50 ML IVPB ONE (09:45)
[2018-09-25] MEDS: LOSARTAN POTASSIUM 25 MG TABLET PO SCH (09:49)
[2018-09-25] MEDS: CARVEDILOL 6.25 MG TABLET (FP) PO SCH ×2 (09:49→21:27)
[2018-09-25] MEDS: CEFTRIAXONE 1 GM in DEXTROSE 5%-WATER - 50 ML IVPB SCH (09:49)
[2018-09-25] MEDS: SPIRONOLACTONE 25 MG TABLET (FP) PO SCH (09:49)
[2018-09-25] MEDS: methylPREDNISolone NA SUCC 40 MG/1 ML VIAL IVPUSH SCH ×2 (09:50→21:27)
[2018-09-25] MEDS: NICOTINE 7 MG/24 HOURS TOPICAL PATCH TD SCH (09:50)
[2018-09-25] MEDS: INSULIN (NOVOLOG MIX 70/30) 100 UNITS/ML MDV SQ SCH ×2 (09:51→17:08)
[2018-09-25] MEDS: INSULIN SLIDING SCALE (NOVOLOG) 1 VIAL SQ SCH ×4 (09:51→21:27)
[2018-09-25] MEDS: POLYETHYLENE GLYCOL 3350 119 GM BTL PO SCH (09:51)
[2018-09-25] MEDS: INSULIN (LEVEMIR) 100 UNITS/ML UNITS SQ SCH (09:52)
--- NOTE | 2018-09-25 11:06 | PN ---
Progress Note (short form) - Note Progress Note: PULMONARY States breathing is improving. Less cough. No fevers. Vital Signs Period Temp Pulse Resp BP Sys/Plasencia Pulse Ox Last 24 Hr 97.6 F-98.4 F 80-96 20-20 130-148/80-92 94 Gen: NAD at rest Heart: RRR Lung: decreased breath sounds at the bases Abd: soft, nontender Ext: distal edema CBC, BMP 09/22/18 06:00 09/22/18 06:00 Active Medications Albuterol Sulfate (Ventolin 0.083% Nebulizer Soln -) 1 amp NEB Q4H PRN PRN Reason: SHORT OF BREATH/WHEEZING Albuterol/Ipratropium (Duoneb -) 1 amp NEB Q4H PRN PRN Reason: ASTHMA Atorvastatin Calcium (Lipitor -) 10 mg PO HS [facility] Last Admin: 09/24/18 22:28 Dose: 10 mg Carvedilol (Coreg -) 6.25 mg PO BID [facility] Last Admin: 09/25/18 09:49 Dose: 6.25 mg Furosemide (Lasix -) 40 mg PO BID@0600,1400 [facility] Last Admin: 09/25/18 05:58 Dose: 40 mg Guaifenesin (Robitussin -) 10 ml PO Q4H PRN PRN Reason: COUGH Last Admin: 09/24/18 22:29 Dose: 10 ml Ceftriaxone Sodium 1 gm/ (Dextrose) 50 mls @ 100 mls/hr IVPB DAILY [facility]; Protocol Last Admin: 09/25/18 09:49 Dose: 100 mls/hr Insulin Aspart (Novolog Vial Sliding Scale -) 1 vial SQ ACHS [facility]; Protocol Last Admin: 09/25/18 09:51 Dose: 8 units Insulin Aspart (Novolog Mix 70/30 Vial) 30 units SQ BIDAC [facility] Last Admin: 09/25/18 09:51 Dose: 30 units Insulin Detemir (Levemir Vial) 40 units SQ ACBK [facility] Last Admin: 09/25/18 09:52 Dose: 40 units Losartan Potassium (Cozaar -) 25 mg PO DAILY [facility] Last Admin: 09/25/18 09:49 Dose: 25 mg Magnesium Hydroxide (Milk Of Magnesia -) 30 ml PO Q8H PRN PRN Reason: INDIGESTION Last Admin: 02/09/19 14:32 Dose: 30 ml Methylprednisolone Sodium Succinate (Solu-Medrol -) 40 mg IVPUSH Q12H [facility] Last Admin: 09/25/18 09:50 Dose: 40 mg Nicotine (Nicoderm Patch -) 7 mg TD DAILY [facility] Last Admin: 09/25/18 09:50 Dose: 7 mg Oxycodone HCl (Roxicodone -) 10 mg PO Q6H PRN PRN Reason: PAIN LEVEL 6-10 Last Admin: 09/24/18 22:28 Dose: 10 mg Polyethylene Glycol (Miralax (For Daily Use) -) 17 gm PO DAILY [facility] Last Admin: 09/25/18 09:51 Dose: 17 gm Senna (Senna -) 1 tab PO HS [facility] Last Admin: 09/24/18 22:28 Dose: 1 tab Spironolactone (Aldactone -) 25 mg PO DAILY [facility] Last Admin: 09/25/18 09:49 Dose: 25 mg A/P Pneumonia COPD Chronic Hypoxic Respiratory Failure LV Systolic Dysfunction Lymphadenopathy HTN DM Hyperlipidemia - complete antibiotics - can change steroids to PO prednisone 40mg daily and taper as outpt - O2 to keep SpO2 >90% - outpt f/u of chest imaging - DVT prophylaxis
--- NOTE | 2018-09-25 15:34 | PN ---
Progress Note (short form) - Note Progress Note: feeling better still with bilateral foot swelling Vital Signs Period Temp Pulse Resp BP Sys/Plasencia Pulse Ox Last 24 Hr 97.6 F-97.7 F 80-96 20-20 130-167/80-102 94-94 cor-rrr lungs decreased bs at bases abd soft,nt ext +pedal edema CBC, BMP 09/22/18 06:00 09/22/18 06:00 Microbiology 09/24/18 21:30 Urine For Antigen Detection Legionella Antigen - Final 09/24/18 21:30 Urine For Antigen Detection Streptococcus pneumoniae Antigen (M - Final-POSITIVE 09/24/18 12:35 Blood - Peripheral Venous Blood Culture - Preliminary NO GROWTH OBTAINED AFTER 24 HOURS, INCUBATION TO CONTINUE FOR 4 DAYS. 09/24/18 12:15 Blood - Peripheral Venous Blood Culture - Preliminary NO GROWTH OBTAINED AFTER 24 HOURS, INCUBATION TO CONTINUE FOR 4 DAYS. imp/reccd leukocytosis LLL pneumonia-+pneumococcal antigen- continue ceftriaxone day #5 history of MRSA bacteremia 05/01 Problem List - Problems (1) Leukocytosis Code(s): D72.829 - ELEVATED WHITE BLOOD CELL COUNT, UNSPECIFIED (2) Pneumonia Code(s): J18.9 - PNEUMONIA, UNSPECIFIED ORGANISM (3) MRSA infection greater than 3 months ago Code(s): Z86.14 - PERSONAL HISTORY OF METHICILLIN RESIS STAPH INFECTION
[2018-09-25] MEDS ORDERED: INSULIN (NOVOLOG) ASPART 100 UNITS/ML 10ML VIAL ONE ×2 (16:46→21:11)
[2018-09-25] MEDS: ATORVASTATIN CA 10 MG TABLET (FP) PO SCH (21:27)
[2018-09-25] MEDS: SENNOSIDES 8.6MG TABLET (FP) PO SCH (21:27)
[2018-09-26] MEDS: INSULIN SLIDING SCALE (NOVOLOG) 1 VIAL SQ SCH ×3 (06:43→17:05)
[2018-09-26] MEDS: FUROSEMIDE 40 MG TABLET (FP) PO SCH ×2 (06:43→14:03)
[2018-09-26] MEDS: INSULIN (NOVOLOG MIX 70/30) 100 UNITS/ML MDV SQ SCH ×2 (06:43→17:02)
[2018-09-26] MEDS: INSULIN (LEVEMIR) 100 UNITS/ML UNITS SQ SCH (06:50)
[2018-09-26] MEDS ORDERED: DEXTROSE 50%-WATER 25 GM/50 ML DISP.SYRIN IVPUSH ONE (06:54)
[2018-09-26] MEDS ORDERED: DEXTROSE 50%-WATER 25 GM/50 ML DISP.SYRIN ONE (06:57)
[2018-09-26 08:00] LABS: HEMOGLOBIN 14.2 GM/dL (10.7-15.3); MCH 30.1 pg (25.7-33.7); MCHC 32.4 g/dl (32.0-36.0); PLATELET COUNT 298 K/MM3 (134-434); RBC 4.73 M/mm3 (3.60-5.2); RDW 17.4 % (11.6-15.6); WHITE BLOOD COUNT 11.6 K/mm3 (4.0-10.0)
[2018-09-26 08:37] LABS: ALBUMIN 2.4 g/dl (3.4-5.0); ALK PHOS 129 U/L (45-117); ANION GAP 5 MMOL/L (8-16); BILIRUBIN,TOTAL 0.7 mg/dL (0.2-1); BLOOD UREA NITROGEN 36 mg/dL (7-18); CALCIUM 8.1 mg/dL (8.5-10.1); CHLORIDE 101 mmol/L (98-107); CO2 32 mmol/L (21-32); CREATININE 0.9 mg/dL (0.55-1.3); GLUCOSE,RANDOM 196 mg/dL (74-106); LIPASE 226 U/L (73-393); POTASSIUM 4.6 mmol/L (3.5-5.1); SGOT/AST 16 U/L (15-37); SGPT/ALT 26 U/L (13-61); SODIUM 137 mmol/L (136-145); TOT PROT 5.2 g/dl (6.4-8.2)
[2018-09-26] MEDS ORDERED: cefTRIAXone SODIUM 1 GM VIAL ONE (09:18)
[2018-09-26] MEDS ORDERED: PT OWN MED DRAWER 7, Y5N ONE (09:18)
[2018-09-26] MEDS ORDERED: DEXTROSE 5%-WATER - 50 ML IVPB ONE (09:19)
[2018-09-26] MEDS: CEFTRIAXONE 1 GM in DEXTROSE 5%-WATER - 50 ML IVPB SCH (09:42)
[2018-09-26] MEDS: methylPREDNISolone NA SUCC 40 MG/1 ML VIAL IVPUSH SCH (09:43)
[2018-09-26] MEDS: NICOTINE 7 MG/24 HOURS TOPICAL PATCH TD SCH (09:43)
[2018-09-26] MEDS: LOSARTAN POTASSIUM 25 MG TABLET PO SCH (09:44)
[2018-09-26] MEDS: SPIRONOLACTONE 25 MG TABLET (FP) PO SCH (09:44)
[2018-09-26] MEDS: CARVEDILOL 6.25 MG TABLET (FP) PO SCH (09:44)
--- NOTE | 2018-09-26 09:49 | DS ---
Physical Examination Vital Signs: Vital Signs Temperature 97.9 F 09/26/18 06:05 Pulse Rate 80 09/26/18 06:05 Respiratory Rate 19 09/26/18 06:05 Blood Pressure 147/99 09/26/18 06:05 O2 Sat by Pulse Oximetry (%) 95 09/25/18 21:00 Findings/Remarks: feeling better denies chest pain or sob Constitutional: Yes: No Distress Eyes: Yes: WNL HENT: Yes: WNL Neck: Yes: WNL Cardiovascular: Yes: WNL Respiratory: Yes: WNL Gastrointestinal: Yes: WNL Musculoskeletal: Yes: WNL Extremities: Yes: WNL Edema: No Peripheral Pulses WNL: Yes Integumentary: Yes: WNL Wound/Incision: Yes: Clean/Dry Neurological: Yes: WNL ...Motor Strength: WNL Psychiatric: Yes: WNL Labs: CBC, BMP 09/26/18 07:00 09/26/18 07:00 Discharge Summary Reason For Visit: CONGESTIVE HEART FAILURE,HYPERGLYCEMIA Current Active Problems Abdominal pain (Acute) Leukocytosis (Acute) MRSA infection greater than 3 months ago (Acute) Mediastinal lymphadenopathy (Acute) Non-compliance with treatment (Acute) Shortness of breath (Acute) Smoker (Acute) Tobacco dependence (Acute) Uncontrolled diabetes mellitus (Acute) Procedures: Principal: CT/SONO Hospital Course: ADMITTED TREATED FOR RESP DISTRESS, GI PAIN, UNCONTROLLED DM, NON-COMPLIANT WITH DIET AND MEDS. TREATED IV ABX, NEBS, 02 SUPPORT FEELING BETTER. Condition: Good - Instructions Diet, Activity, Other Instructions: SEE YOUR DOCTOR IN 1-2 DAYS DIET ADA, STAY COMPLIANT WITH DIABETIC MENU GIVEN AND MEDICATIONS Referrals: Ronnie Oscar MD [Primary Care Provider] - Disposition: VNS/HOME HEALTH CARE - Home Medications Comprehensive Discharge Medication List: Ambulatory Orders Albuterol 2.5/Ipratropium 0.5 [Duoneb -] 1 neb NEB Q4H PRN #180 amp 05/03/17 Atorvastatin Ca [Lipitor] 10 mg PO HS #30 tab 05/03/17 Linaclotide [Linzess] 145 mcg PO DAILY #30 cap 05/03/17 Montelukast Na [Singulair -] 10 mg PO HS #30 tab 05/03/17 Esomeprazole Magnesium [Nexium 24Hr] 20 mg PO DAILY 04/20/18 Carvedilol [Coreg -] 6.25 mg PO BID #60 tablet 04/24/18 Furosemide [Lasix -] 40 mg PO DAILY #30 tablet 04/24/18 Insulin (Levemir) [Levemir Vial] 15 units SQ ACBK units 04/24/18 Insulin Sliding Scale [Novolog Vial Sliding Scale -] 1 vial SQ HS units Losartan Potassium [Cozaar -] 25 mg PO DAILY #30 tablet 04/24/18 Spironolactone [Aldactone -] 25 mg PO DAILY #30 tablet 04/24/18 Magnesium Hydrox 2400MG/30Ml [Milk of Magnesia -] 30 ml PO Q8H PRN #1 bot Polyethylene Glycol 3350 [Miralax 119 gm Btl -] 17 gm PO DAILY #1 bottle Sennosides [Senna -] 1 tab PO HS #30 tablet 05/02/18 Dapagliflozin Propanediol [Farxiga] 10 mg PO DAILY 09/20/18 Farxiga 10 mg PO DAILY 09/21/18 Albuterol 0.083% Nebulizer Chayito [Ventolin 0.083% Nebulizer Soln -] 1 amp NEB Q4H PRN amp 09/26/18 Amoxicillin/Potassium Clav [Amox-Clav 500-125 mg Tablet] 1 each PO BID 5 Days # 10 tablet 09/26/18 Methylprednisolone [Medrol Dose Ivan] 4 mg PO ASDIR #21 tablet 09/26/18 Nicotine Patch [Nicoderm Patch -] 7 mg TD DAILY #30 patch 09/26/18
[2018-09-26 10:00] VITALS: BP 131/81
[2018-09-26] MEDS: POLYETHYLENE GLYCOL 3350 119 GM BTL PO SCH (10:00)
[2018-09-26 13:14] VITALS: BMI 37.8
[2018-09-26 14:41] VITALS: TEMP 97.3
[2018-09-26 17:02] VITALS: PULSE 95
== END 2018-09-26 18:01 | disposition home health service (06) | DRG 193 ==
LOC: JER 16:39 → JERBED 21:22 → J6S 09-20 23:31
PROVIDERS: ADMIT Family Medicine; ATTEND Family Medicine
DX: J18.9 Pneumonia, unspecified organism (principal); I50.23 Acute on chronic systolic (congestive) heart failure; G92 Toxic encephalopathy; J44.1 Chronic obstructive pulmonary disease with (acute) exacerbation; J96.11 Chronic respiratory failure with hypoxia; I42.9 Cardiomyopathy, unspecified; I11.0 Hypertensive heart disease with heart failure; E66.01 Morbid (severe) obesity due to excess calories; Z68.37 Body mass index [BMI] 37.0-37.9, adult; R59.0 Localized enlarged lymph nodes; R59.1 Generalized enlarged lymph nodes; Z99.81 Dependence on supplemental oxygen; Z79.4 Long term (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 of insulin; E11.65 Type 2 diabetes mellitus with hyperglycemia; E78.5 Hyperlipidemia, unspecified; F17.210 Nicotine dependence, cigarettes, uncomplicated; R74.8 Abnormal levels of other serum enzymes; Z86.14 Personal history of Methicillin resistant Staphylococcus aureus infection; B95.3 Streptococcus pneumoniae as the cause of diseases classified elsewhere
CPT/HCPCS: 36415; 71045-TC-FY; 71250-TC; 76700-TC; 80048; 80053; 80307; 81003; 81015; 82550; 82947; 82962; 83036; 83690; 83735; 83880; 84484; 85025; 85027; 87040; 87899; 93005; 93010; 94640; 94761; 99285-25

== ENCOUNTER 2018-10-11 19:26 | Inpatient (IN) | payer OTHER ==
[2018-10-11] MEDS ORDERED: DEXAMETHASONE SOD PHOSPHATE 10 MG/1 ML VIAL ONE (19:44)
[2018-10-11] MEDS ORDERED: ALBUTEROL SO4 2.5/IPRATROPIUM 0.5 INH SOL 3 ML VIAL.NEB. NEB ONE ×4 (19:44→20:47)
--- NOTE | 2018-10-11 19:53 | PDOC ---
History of Present Illness - General Chief Complaint: Asthma Stated Complaint: S.O.B Time Seen by Provider: 10/11/18 19:37 History Source: Patient Exam Limitations: No Limitations - History of Present Illness Initial Comments: Pt is a 58 yo F, with PMH of COPD (2.5 L O2 at home), CHF (on 40 mg lasix), HTN , HLD, IDDM, who is presenting with complaints of shortness of breath, nausea and vomiting, diarrhea, and cough of productive sputum x3 days. Pt states she ran out of her home oxygen 1 week ago. Over the past few days, she had multiple episodes of NBNB vomiting, loose stool, and productive cough. She states her legs are always swollen. She came to the ER today due to shortness of breath that has worsened, even after taking her home nebulizer treatments. Pt states she has been compliant with all of her medications. Pt denies any recent fevers/ chills, headache, vision changes, syncope, chest pain, palpitations, abdominal pain, or urinary symptoms. Social: Pt denies any cigarette, alcohol, or drug use. Pt denies any recent travel or sick contacts. Surgical: cholecystectomy. Family: no relevant history. 10/11/18 22:11 Past History - Travel Traveled outside of the country in the last 30 days: No Close contact w/someone who was outside of country & ill: No - Past Medical History Allergies/Adverse Reactions: Allergies Allergy/AdvReac Type Severity Reaction Status Date / Time No Known Allergies Allergy Verified 10/11/18 19:50 Home Medications: Ambulatory Orders Albuterol 2.5/Ipratropium 0.5 [Duoneb -] 1 neb NEB Q4H PRN #180 amp 05/03/17 Atorvastatin Ca [Lipitor] 10 mg PO HS #30 tab 05/03/17 Linaclotide [Linzess] 145 mcg PO DAILY #30 cap 05/03/17 Montelukast Na [Singulair -] 10 mg PO HS #30 tab 05/03/17 Esomeprazole Magnesium [Nexium 24Hr] 20 mg PO DAILY 04/20/18 Carvedilol [Coreg -] 6.25 mg PO BID #60 tablet 04/24/18 Furosemide [Lasix -] 40 mg PO DAILY #30 tablet 04/24/18 Insulin (Levemir) [Levemir Vial] 15 units SQ ACBK units 04/24/18 Insulin Sliding Scale [Novolog Vial Sliding Scale -] 1 vial SQ HS units Losartan Potassium [Cozaar -] 25 mg PO DAILY #30 tablet 04/24/18 Spironolactone [Aldactone -] 25 mg PO DAILY #30 tablet 04/24/18 Magnesium Hydrox 2400MG/30Ml [Milk of Magnesia -] 30 ml PO Q8H PRN #1 bot Polyethylene Glycol 3350 [Miralax 119 gm Btl -] 17 gm PO DAILY #1 bottle Sennosides [Senna -] 1 tab PO HS #30 tablet 05/02/18 Dapagliflozin Propanediol [Farxiga] 10 mg PO DAILY 09/20/18 Farxiga 10 mg PO DAILY 09/21/18 Albuterol 0.083% Nebulizer Chayito [Ventolin 0.083% Nebulizer Soln -] 1 amp NEB Q4H PRN amp 09/26/18 Amoxicillin/Potassium Clav [Amox-Clav 500-125 mg Tablet] 1 each PO BID 5 Days # 10 tablet 09/26/18 Methylprednisolone [Medrol Dose Ivan] 4 mg PO ASDIR #21 tablet 09/26/18 Nicotine Patch [Nicoderm Patch -] 7 mg TD DAILY #30 patch 09/26/18 Asthma: Yes Cancer: No COPD: Yes CHF: Yes DVT: No Diabetes: Yes GI Disorders: No Disorders: No HTN: Yes Hypercholesterolemia: Yes Liver Disease: No Thyroid Disease: No - Surgical History Cholecystectomy: Yes Orthopedic Surgery: (lt shoulder repair) - Immunization History Immunization Up to Date: Yes - Suicide/Smoking/Psychosocial Hx Smoking History: Never smoked Have you smoked in the past 12 months: No Number of Cigarettes Smoked Daily: 10 If you are a former smoker, when did you quit?: 1 month ago Cigars Per Day: 0 Information on smoking cessation initiated: No 'Breaking Loose' booklet given: 04/25/18 Hx Alcohol Use: No Drug/Substance Use Hx: No Substance Use Type: None Hx Substance Use Treatment: No Review of Systems - Review of Systems Able to Perform ROS?: Yes Is the patient limited Nicaraguan proficient: No Constitutional: Yes: Malaise, Weight Stable. No: Chills, Diaphoresis, Fever, Loss of Appetite, Weakness HEENTM: No: Blurred Vision, Recent change in vision, Nose Congestion, Throat Pain, Throat Swelling Respiratory: Yes: Cough, Shortness of Breath, SOB with Exertion, SOB at Rest, Wheezing, Productive cough. No: Orthopnea, Hemoptysis Cardiac (ROS): Yes: Edema, Chest Tightness. No: Chest Pain, Irregular Heart Rate, Lightheadedness, Palpitations, Syncope ABD/GI: Yes: Diarrhea, Nausea, Poor Appetite, Poor Fluid Intake, Vomiting. No: Constipated, Difficulty Swallowing : No: Burning, Dysuria, Pain, Urgency Musculoskeletal: No: Back Pain, Joint Pain Integumentary: No: Rash Neurological: No: Headache, Numbness, Seizure, Weakness, Dizziness Psychiatric: No: Sleep Pattern Change, Change in Appetite Endocrine: No: Increased Urine, Change in Weight Hematologic/Lymphatic: No: Anemia, Blood Clots, Easy Bleeding, Easy Bruising All Other Systems: Reviewed and Negative *Physical Exam - Vital Signs Last Vital Signs Temp Pulse Resp BP Pulse Ox 97.3 F L 91 H 22 H 154/85 97 10/11/18 19:26 10/11/18 19:26 10/11/18 19:26 10/11/18 19:26 10/11/18 19:26 - Physical Exam Comments: Vitals stable, pt afebrile. Pt appears uncomfortable, dyspneic and mildly diaphoretic, obese body habitus. PE showed pt alert and oriented and can answer questions appropriately. 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 Eyes PERRLA, EOMI. Oropharynx without erythema or exudates, no LAD b/l. No nasal congestion, hearing intact. Clear heart sounds, S1/S2, no JVD or heart murmur. B/l pitting edema up to mid shins. Coarse wheezes b/l, poor air movement. No abdominal or CVA tenderness to palpation, no rebound, no guarding. Abdomen soft, protuberant, and with normoactive bowel sounds. Skin without jaundice or rash. 10/11/18 22:27 Moderate Sedation - Procedure Monitoring Vital Signs: Procedure Monitoring Vital Signs Temperature 97.3 F L 10/11/18 19:26 Pulse Rate 91 H 10/11/18 19:26 Respiratory Rate 22 H 10/11/18 19:26 Blood Pressure 154/85 10/11/18 19:26 O2 Sat by Pulse Oximetry (%) 97 10/11/18 19:26 ED Treatment Course - LABORATORY CBC & Chemistry Diagram: 10/11/18 20:41 10/11/18 20:41 Medical Decision Making - Medical Decision Making Pt was seen at bedside, also will be seen by attending Dr. Herrera. Pt presenting with complaints of shortness of breath, nausea and vomiting, diarrhea , and cough of productive sputum x3 days. Pt states she ran out of her home oxygen 1 week ago. Over the past few days, she had multiple episodes of NBNB vomiting, loose stool, and productive cough. She states her legs are always swollen. She came to the ER today due to shortness of breath that has worsened, even after taking her home nebulizer treatments. Pt states she has been compliant with all of her medications. Pt denies any recent fevers/chills, headache, vision changes, syncope, chest pain, palpitations, abdominal pain, or urinary symptoms. Bedside BGM 57 -- providing 1 amp D50 Vitals stable, pt afebrile. Pt appears uncomfortable, dyspneic and mildly diaphoretic, obese body habitus. PE showed pt alert and oriented and can answer questions appropriately. 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 Eyes PERRLA, EOMI. Oropharynx without erythema or exudates, no LAD b/l. No nasal congestion, hearing intact. Clear heart sounds, S1/S2, no JVD or heart murmur. B/l pitting edema up to mid shins. Coarse wheezes b/l, poor air movement. No abdominal or CVA tenderness to palpation, no rebound, no guarding. Abdomen soft, protuberant, and with normoactive bowel sounds. Skin without jaundice or rash. Considering COPD vs CHF exacerbation vs infectious (pneumonia vs viral URI/ influenza vs gastroenteritis) vs pleural effusion. Ordered work-up including CBC, CMP, BNP, ABG, cardiac profile, ECG, coags, chest x-ray, UA. Provided 1 g ofirmev, duonebs, and 125 mg solumedrol IV for improvement of dyspnea and discomfort. Will continue to reassess pt and monitor for symptomatic improvement. 10/11/18 20:37 ECG: NSR, intervals WNL. RAD (old for pt). No TWIs or significant ST segment changes. No significant changes from prior ECG. 10/11/18 21:57 CBC WNL for pt. CMP: BUN 28, glucose 52 INR 1.24 Trop .04 -- providing 162 mg PO aspirin, no ECG changes. Influenza negative. BNP 5500 (higher than any prior admission) and chest x-ray showed worsening infiltrates b/l -- providing 40 mg IV lasix. Repeat vitals: BP 146/100, HR 80s, 90% O2 on 3 L NC. Paging hospitalist team for admission. Pt has no home O2 and O2 saturation lower than baseline. Pt states her breathing feels much better after duoneb treatments. Repeat BGM 64 -- providing pt food. Pending hospitalist team call back. 10/11/18 22:02 Pt accepted to hospitalist team (Dr. Juarez). Will place michelle catheter to monitor urine output. Pt resting comfortably, on O2 4 L NC. 10/11/18 23:36 *DC/Admit/Observation/Transfer Diagnosis at time of Disposition: CHF exacerbation Qualifiers: Heart failure type: unspecified Qualified Code(s): I50.9 - Heart failure, unspecified COPD (chronic obstructive pulmonary disease) Qualifiers: COPD type: unspecified COPD Qualified Code(s): J44.9 - Chronic obstructive pulmonary disease, unspecified Diabetes Qualifiers: Diabetes mellitus type: type 2 Diabetes mellitus intermediate card tender insulin use: with intermediate card tender use Diabetes mellitus complication status: with unspecified complications Qualified Code(s): E11.8 - Type 2 diabetes mellitus with unspecified complications; Z79.4 - technician terminal and repeater (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 of insulin - Discharge Dispostion Condition at time of disposition: Stable Decision to Admit order: Yes - Referrals - Patient Instructions - Post Discharge Activity
[2018-10-11] MEDS ORDERED: ACETAMINOPHEN 1000 MG/100 ML VIAL (NON FORMULARY) IVPB ONE (20:22)
[2018-10-11] MEDS ORDERED: methylPREDNISolone NA SUCC 125 MG/2 ML VIAL IVPUSH ONE (20:31)
[2018-10-11] MEDS ORDERED: ACETAMINOPHEN INJECTION 100 ML IVPB ONE (20:32)
--- NOTE | 2018-10-11 20:41 | PDOC ---
Attending Attestation - HPI HPI: 10/11/18 21:50 The patient is a 58 year old female with a PMH of CHF, DM, HTN, and HLD who presents to the ER with shortness of breath and wheezing. Patient has run out of her home O2 for the past week. Patient was administered nebs and decadron via EMS. Patient had a blood glucose of 52 here in the ER. Allergies: NKDA Surgeries: Cholecystectomy Social Hx: No reported alcohol, drug or cigarette use. - Physicial Exam PE: 10/11/18 21:43 ADULT PHYSICAL EXAM Constitutional: Awake, alert, oriented. No acute distress. (+) Diaphoretic. ENT: Mucous membranes are moist and intact. Posterior pharynx without exudates or erythema. Uvula midline. Neck: Supple. Full ROM. No lymphadenopathy. Cardiovascular: Regular rate. Regular rhythm. S1, S2 regular. Distal pulses are 2+ and symmetric. Pulmonary/Chest: (+) Wheezing diffusely. (+) Short of breath. No rales or rhonchi. Abdominal: Soft and non-distended. There is no tenderness. No rebound, guarding or rigidity. No organomegaly. No palpable masses. Good bowel sounds. Back: No CVA tenderness. Musculoskeletal: (+) 3+ pitting edema. No cyanosis. No clubbing. Full range of motion in all extremities. Nocalf tenderness. Radial/pedal pulses are intact and 2+ bilaterally Skin: Skin is warm and dry. No petechiae. No purpura. Neurological: Alert and oriented to person, place, and time. Cranial nerves II -XII are grossly intact. Normal speech. Strength is grossly symmetric. No sensory deficits. Psychiatric: Good eye contact. Normal interaction, affect and behavior. - Medical Decision Making <Lanny Aguayo - Last Filed: 10/11/18 21:51> - Resident Resident Name: Shelbi Bhatt - ED Attending Attestation I have performed the following: I have examined & evaluated the patient, The case was reviewed & discussed with the resident, I agree w/resident's findings & plan, Exceptions are as noted - Medical Decision Making 10/11/18 20:41 I, Dr. Jennifer Herrera, DO, attest that this document has been prepared under my direction and personally reviewed by me in its entirety. I further attest, that it accurately reflects all work, treatment, procedures and medical decision -making performed by me. 10/11/18 21:33 a/p: 58yo female with sob/wheezing -out of home o2 x 1 week -sob and wheezing -given nebs and decadron [facility] -pt diaphoretic upon arrival, finger stick 52 - given amp d50 -will send labs, cxr, ekg -will most likely need admission for COPD exacerbation vs chf exacerbation -will repeat finger stick in 1 hour -will monitor and reassess 10/11/18 21:36 elevated bnp borderline trop suspect copd/chf exacerbation will give lasix iv asa nebs 10/11/18 22:41 vascular congestion on cxr chf exacerbation given lasix <Jennifer Herrera - Last Filed: 10/11/18 22:42> Heart Score/ECG Review - ECG Intrepretation Comment:: 10/11/18 21:38 sinus at 97, r axis, nl interval, poor r wave progression, abnl ekg <Jennifer Herrera - Last Filed: 10/11/18 22:42>
[2018-10-11] MEDS ORDERED: methylPREDNISolone NA SUCC 125 MG/2 ML VIAL ONE (20:47)
[2018-10-11 20:52] LABS: BASO % 0.4 % (0-2.0); EOS % 0.4 % (0-4.5); HEMATOCRIT 46.2 % (32.4-45.2); HEMOGLOBIN 15.6 GM/dL (10.7-15.3); LYMPH % 11.5 % (8-40); MCHC 33.8 g/dl (32.0-36.0); MEAN CELL VOLUME 91.8 fl (80-96); MONO % 6.4 % (3.8-10.2); NEUT % 81.3 % (42.8-82.8); PLATELET COUNT 237 K/MM3 (134-434); RBC 5.03 M/mm3 (3.60-5.2); RDW 17.1 % (11.6-15.6); WHITE BLOOD COUNT 8.7 K/mm3 (4.0-10.0)
[2018-10-11] MEDS ORDERED: DEXTROSE 50%-WATER - 25 GM/50 ML VIAL IVPUSH ONE (21:00)
[2018-10-11] MEDS ORDERED: DEXTROSE 50%-WATER - 25 GM/50 ML VIAL ONE (21:00)
[2018-10-11 21:29] LABS: ALBUMIN 2.8 g/dl (3.4-5.0); ALK PHOS 173 U/L (45-117); ANION GAP 7 MMOL/L (8-16); BILIRUBIN,TOTAL 0.9 mg/dL (0.2-1); BLOOD UREA NITROGEN 28 mg/dL (7-18); CALCIUM 7.8 mg/dL (8.5-10.1); CHLORIDE 107 mmol/L (98-107); CO2 26 mmol/L (21-32); CREATININE 0.8 mg/dL (0.55-1.3); GLUCOSE,RANDOM 57 mg/dL (74-106); N-TERMINAL BNP 5511.9 pg/ml (5-125); POTASSIUM 4.2 mmol/L (3.5-5.1); SGOT/AST 29 U/L (15-37); SGPT/ALT 40 U/L (13-61); SODIUM 140 mmol/L (136-145); TOT PROT 6.2 g/dl (6.4-8.2)
[2018-10-11 21:30] LABS: INR 1.24 (0.83-1.09); PROTHROMBIN TIME (PATIENT) 14.7 SEC (9.7-13.0)
[2018-10-11 21:34] LABS: ARTERIAL BLD GAS O2 SATURATION 98.4 % (90-98.9); ARTERIAL BLOOD GAS BASE EXCESS 0.8 meq/l (-2-2); ARTERIAL BLOOD GAS PCO2 43.6 mmHg (35-45); ARTERIAL BLOOD GAS pH 7.39 (7.35-7.45)
[2018-10-11] MEDS ORDERED: FUROSEMIDE 40 MG/4 ML INJECTABLE VIAL IVPUSH ONE (21:37)
[2018-10-11] MEDS ORDERED: ASPIRIN 81 MG CHEWABLE TABLETS PO ONE (21:37)
[2018-10-11] MEDS ORDERED: FUROSEMIDE 40 MG/4 ML INJECTABLE VIAL ONE (21:48)
[2018-10-11] MEDS ORDERED: ASPIRIN 81 MG CHEWABLE TABLETS ONE ×2 (21:48→22:08)
[2018-10-11] MEDS ORDERED: ALBUTEROL SO4 0.083% IH SOL 2.5 MG/3 ML VIAL.NEB. NEB PRN (23:53)
[2018-10-12] MEDS ORDERED: ALBUTEROL SO4 0.083% IH SOL 2.5 MG/3 ML VIAL.NEB. NEB SCH
--- NOTE | 2018-10-12 00:17 | HP ---
CHIEF COMPLAINT: shortness of breath PCP: Cathi HISTORY OF PRESENT ILLNESS: 58 yo woman c/o shortness of breath and productive sputum for 3 days duration. Pt states she ran out of her home oxygen 1 week ago. Over the past few days, she had multiple episodes of NBNB vomiting, loose stools. When I examined her, she was very sleepy and not willing to over much more history. ER course was notable for: (1) cxr (2) methylprednisone (3) Recent Travel: no PAST MEDICAL HISTORY: COPD (2.5 L O2 at home), CHF (on 40 mg lasix), HTN, HLD, IDDM PAST SURGICAL HISTORY: cholecystectomy Social History: Smoking: quit smoking Alcohol: no Drugs: no Family History: no Allergies No Known Allergies Allergy (Verified 10/11/18 19:50) HOME MEDICATIONS: Home Medications Medication Instructions Recorded Albuterol 2.5/Ipratropium 0.5 1 neb NEB Q4H PRN #180 amp 05/03/17 [Duoneb -] Atorvastatin Ca [Lipitor] 10 mg PO HS #30 tab 05/03/17 Linaclotide [Linzess] 145 mcg PO DAILY #30 cap 05/03/17 Montelukast Na [Singulair -] 10 mg PO HS #30 tab 05/03/17 Esomeprazole Magnesium [Nexium 20 mg PO DAILY 04/20/18 24Hr] Carvedilol [Coreg -] 6.25 mg PO BID #60 tablet 04/24/18 Furosemide [Lasix -] 40 mg PO DAILY #30 tablet 04/24/18 Insulin (Levemir) [Levemir Vial] 15 units SQ ACBK units 04/24/18 Insulin Sliding Scale [Novolog 1 vial SQ HS units 04/24/18 Vial Sliding Scale -] Losartan Potassium [Cozaar -] 25 mg PO DAILY #30 tablet 04/24/18 Spironolactone [Aldactone -] 25 mg PO DAILY #30 tablet 04/24/18 Magnesium Hydrox 2400MG/30Ml [Milk 30 ml PO Q8H PRN #1 bot 05/02/18 of Magnesia -] Polyethylene Glycol 3350 [Miralax 17 gm PO DAILY #1 bottle 05/02/18 119 gm Btl -] Sennosides [Senna -] 1 tab PO HS #30 tablet 05/02/18 Dapagliflozin Propanediol [Farxiga] 10 mg PO DAILY 09/20/18 Farxiga 10 mg PO DAILY 09/21/18 Albuterol 0.083% Nebulizer Chayito 1 amp NEB Q4H PRN amp 09/26/18 [Ventolin 0.083% Nebulizer Soln -] Amoxicillin/Potassium Clav 1 each PO BID 5 Days #10 tablet 09/26/18 [Amox-Clav 500-125 mg Tablet] Methylprednisolone [Medrol Dose 4 mg PO ASDIR #21 tablet 09/26/18 Ivan] Nicotine Patch [Nicoderm Patch -] 7 mg TD DAILY #30 patch 09/26/18 REVIEW OF SYSTEMS CONSTITUTIONAL: Absent: fever, chills, diaphoresis, generalized weakness, malaise, loss of appetite, weight change HEENT: Absent: rhinorrhea, nasal congestion, throat pain, throat swelling, difficulty swallowing, mouth swelling, ear pain, eye pain, visual changes CARDIOVASCULAR: Absent: chest pain, syncope, palpitations, irregular heart rate, lightheadedness , peripheral edema RESPIRATORY: Absent: orthopnea, wheezing, stridor, hemoptysis present- cough, shortness of breath, dyspnea with exertion, GASTROINTESTINAL: Absent: abdominal pain, abdominal distension, constipation, melena, hematochezia present- nausea, vomiting, diarrhea, GENITOURINARY: Absent: dysuria, frequency, urgency, hesitancy, hematuria, flank pain, genital pain MUSCULOSKELETAL: Absent: myalgia, arthralgia, joint swelling, back pain, neck pain SKIN: Absent: rash, itching, pallor HEMATOLOGIC/IMMUNOLOGIC: Absent: easy bleeding, easy bruising, lymphadenopathy, frequent infections ENDOCRINE: Absent: unexplained weight gain, unexplained weight loss, heat intolerance, cold intolerance NEUROLOGIC: Absent: headache, focal weakness or paresthesias, dizziness, unsteady gait, seizure, mental status changes, bladder or bowel incontinence PSYCHIATRIC: Absent: anxiety, depression, suicidal or homicidal ideation, hallucinations. PHYSICAL EXAMINATION Vital Signs - 24 hr 10/11/18 10/11/18 19:26 22:00 Temperature 97.3 F L Pulse Rate 91 H Pulse Rate [ 88 Apical] Respiratory 22 H 22 H Rate Blood Pressure 154/85 Blood Pressure 146/110 H [Right Arm] O2 Sat by Pulse 97 94 L Oximetry (%) GENERAL: Awake, alert, and fully oriented, in no acute distress, obese HEAD: Normal with no signs of trauma. EYES: Pupils equal, round and reactive to light, extraocular movements intact, sclera anicteric, conjunctiva clear. No lid lag. EARS, NOSE, THROAT: Ears normal, nares patent, oropharynx clear without exudates. Moist mucous membranes. NECK: Normal range of motion, supple without lymphadenopathy, JVD, or masses. LUNGS: diffuse, exp wheezing an coarse breath sounds appreciated HEART: Regular rate and rhythm, normal S1 and S2 without murmur, rub or gallop. ABDOMEN: Soft, nontender, not distended, normoactive bowel sounds, no guarding, no rebound, no masses. No hepatomegaly or splenomegaly. MUSCULOSKELETAL: Normal range of motion at all joints. No bony deformities or tenderness. No CVA tenderness. UPPER EXTREMITIES: 2+ pulses, warm, well-perfused. No cyanosis. No clubbing. No peripheral edema. LOWER EXTREMITIES: 2+ pulses, warm, well-perfused. No calf tenderness. 2+ b/l pedal edema up to mid shins NEUROLOGICAL: Cranial nerves II-XII intact. Normal speech PSYCHIATRIC: Cooperative. Good eye contact. Appropriate mood and affect. SKIN: Warm, dry, normal turgor, no rashes or lesions noted, normal capillary refill. Laboratory Results - last 24 hr 10/11/18 10/11/18 10/11/18 20:19 20:41 20:41 WBC 8.7 RBC 5.03 Hgb 15.6 H Hct 46.2 H MCV 91.8 MCH 31.0 MCHC 33.8 RDW 17.1 H Plt Count 237 D MPV 8.0 Absolute Neuts (auto) 7.0 Neutrophils % 81.3 Lymphocytes % 11.5 D Monocytes % 6.4 Eosinophils % 0.4 D Basophils % 0.4 Nucleated RBC % 0 PT with INR 14.70 H INR 1.24 H Anticoagulation Therapy Puncture Site ABG pH ABG pCO2 at Pt Temp ABG pO2 at Pt Temp ABG HCO3 ABG O2 Sat (Measured) ABG O2 Content ABG Base Excess Bharathi Test Carboxyhemoglobin Methemoglobin O2 Delivery Device Oxygen Flow Rate Vent Mode Vent Rate Mechanical Rate Pressure Support Vent Sodium Potassium Chloride Carbon Dioxide Anion Gap BUN Creatinine Creat Clearance w eGFR POC Glucometer Random Glucose Calcium Total Bilirubin AST ALT Alkaline Phosphatase Creatine Kinase Troponin I B-Natriuretic Peptide Total Protein Albumin Influenza A (Rapid) Negative Influenza B (Rapid) Negative 10/11/18 10/11/18 10/11/18 20:41 20:58 21:30 WBC RBC Hgb Hct MCV MCH MCHC RDW Plt Count MPV Absolute Neuts (auto) Neutrophils % Lymphocytes % Monocytes % Eosinophils % Basophils % Nucleated RBC % PT with INR INR Anticoagulation Therapy No Result Required. Puncture Site No Result Required. ABG pH 7.39 ABG pCO2 at Pt Temp 43.6 D ABG pO2 at Pt Temp 127.0 H D ABG HCO3 25.6 ABG O2 Sat (Measured) 98.4 ABG O2 Content 20.7 ABG Base Excess 0.8 Bharathi Test No Result Required. Carboxyhemoglobin 1.0 Methemoglobin 0.4 O2 Delivery Device No Result Required. Oxygen Flow Rate No Result Required. Vent Mode No Result Required. Vent Rate No Result Required. Mechanical Rate No Result Required. Pressure Support Vent No Result Required. Sodium 140 Potassium 4.2 Chloride 107 Carbon Dioxide 26 Anion Gap 7 L BUN 28 H Creatinine 0.8 Creat Clearance w eGFR > 60 POC Glucometer 52 Random Glucose 57 L Calcium 7.8 L Total Bilirubin 0.9 AST 29 ALT 40 Alkaline Phosphatase 173 H Creatine Kinase 86 Troponin I 0.04 B-Natriuretic Peptide 5511.9 H Total Protein 6.2 L Albumin 2.8 L Influenza A (Rapid) Influenza B (Rapid) 10/11/18 22:22 WBC RBC Hgb Hct MCV MCH MCHC RDW Plt Count MPV Absolute Neuts (auto) Neutrophils % Lymphocytes % Monocytes % Eosinophils % Basophils % Nucleated RBC % PT with INR INR Anticoagulation Therapy Puncture Site ABG pH ABG pCO2 at Pt Temp ABG pO2 at Pt Temp ABG HCO3 ABG O2 Sat (Measured) ABG O2 Content ABG Base Excess Bharathi Test Carboxyhemoglobin Methemoglobin O2 Delivery Device Oxygen Flow Rate Vent Mode Vent Rate Mechanical Rate Pressure Support Vent Sodium Potassium Chloride Carbon Dioxide Anion Gap BUN Creatinine Creat Clearance w eGFR POC Glucometer 64 Random Glucose Calcium Total Bilirubin AST ALT Alkaline Phosphatase Creatine Kinase Troponin I B-Natriuretic Peptide Total Protein Albumin Influenza A (Rapid) Influenza B (Rapid) Imaging studies reviewed, cxr with b/l pulm edema. ekg with no acute ischemic changes ASSESSMENT/PLAN: #58yo woman with COPD exacerbation and CHF exacerbation. flu was negative. -admit to telemetry -michelle catheter -i/o -daily weights -cardiology and pulm consults -lasix 40mg IV daily -bblocker -ACEi -spironolactone -fluid restriction -salt restriction -echo -trend troponin -monitor closely on telemetry -albuterol neb q6hrs -prednisone 40mg po bd -supplemental o2 via nasal cannula -tiotropium bromide 2 puffs/ day #DM -novolog sliding scale -diabetic diet -a1dc #le edema -duplex us to r/o dvt #DVT ppx hparin sc Visit type - Emergency Visit Emergency Visit: Yes ED Registration Date: 10/11/18 Care time: The patient presented to the Emergency Department on the above date and was hospitalized for further evaluation of their emergent condition. - New Patient This patient is new to me today: Yes Date on this admission: 10/12/18 - Critical Care Critical Care patient: No
[2018-10-12 03:36] LABS: URINE APPEARANCE CLEAR; URINE BILIRUBIN NEGATIVE (<2.0 mg/dL); URINE COLOR YELLOW; URINE GLUCOSE (UA) NEGATIVE (NEGATIVE); URINE KETONE NEGATIVE (NEGATIVE); URINE LEUK ESTERASE NEGATIVE (NEGATIVE); URINE NITRITE NEGATIVE (NEGATIVE); URINE PROTEIN 2+ (NEGATIVE); URINE UROBILINOGEN NEGATIVE mg/dL (0.2-1.0)
[2018-10-12 04:25] LABS: URINE BACTERIA RARE /hpf (NONE SEEN); URINE HYALINE CAST 3 /lpf; URINE MUCUS RARE
[2018-10-12 06:11] LABS: HEMOGLOBIN 14.7 GM/dL (10.7-15.3); MCH 30.8 pg (25.7-33.7); MCHC 33.5 g/dl (32.0-36.0); MEAN CELL VOLUME 91.7 fl (80-96); MEAN PLT VOLUME 8.1 fl (7.5-11.1); PLATELET COUNT 228 K/MM3 (134-434); RBC 4.79 M/mm3 (3.60-5.2); RDW 17.3 % (11.6-15.6)
[2018-10-12 06:36] LABS: ANION GAP 5 MMOL/L (8-16); BLOOD UREA NITROGEN 29 mg/dL (7-18); CALCIUM 8.1 mg/dL (8.5-10.1); CHLORIDE 107 mmol/L (98-107); CO2 29 mmol/L (21-32); GLUCOSE,RANDOM 98 mg/dL (74-106); POTASSIUM 4.1 mmol/L (3.5-5.1); SODIUM 141 mmol/L (136-145)
[2018-10-12] MEDS: INSULIN SLIDING SCALE (NOVOLOG) 1 VIAL SQ SCH ×4 (06:45→22:16)
[2018-10-12] MEDS ORDERED: INSULIN (LEVEMIR) 100 UNITS/ML UNITS SQ SCH ×2 (07:00→22:00)
[2018-10-12] MEDS ORDERED: ALBUTEROL SO4 0.083% IH SOL 2.5 MG/3 ML VIAL.NEB. NEB ONE ×2 (08:51→09:04)
[2018-10-12] MEDS: ALBUTEROL SO4 0.083% IH SOL 2.5 MG/3 ML VIAL.NEB. NEB SCH ×3 (08:52→20:45)
--- NOTE | 2018-10-12 09:58 | PN ---
Progress Note, Physician - Current Medication List Current Medications: Active Medications Albuterol Sulfate (Ventolin 0.083% Nebulizer Soln -) 1 amp NEB Q4H PRN PRN Reason: SHORT OF BREATH/WHEEZING Albuterol Sulfate (Ventolin 0.083% Nebulizer Soln -) 1 amp NEB RQID LETA Last Admin: 10/12/18 08:52 Dose: 1 amp Azithromycin (Zithromax -) 500 mg PO DAILY [facility] Carvedilol (Coreg -) 6.25 mg PO BID LETA Furosemide (Lasix Injection -) 40 mg IVPUSH DAILY [facility] Heparin Sodium (Porcine) (Heparin -) 5,000 unit SQ BID LETA Insulin Aspart (Novolog Vial Sliding Scale -) 1 vial SQ ACHS LETA; Protocol Last Admin: 10/12/18 06:45 Dose: Not Given Insulin Detemir (Levemir Vial) 15 units SQ HS [facility] Losartan Potassium (Cozaar -) 25 mg PO DAILY [facility] Montelukast Sodium (Singulair -) 10 mg PO HS [facility] Pantoprazole Sodium (Protonix -) 20 mg PO DAILY [facility] Prednisone (Deltasone -) 40 mg PO BID [facility]A Spironolactone (Aldactone -) 25 mg PO DAILY [facility] Tiotropium [place] (Spiriva Respimat) 2 puff IH DAILY [facility] - Objective Vital Signs: Vital Signs Temperature 97.7 F 10/12/18 06:51 Pulse Rate 95 H 10/12/18 06:51 Respiratory Rate 18 10/12/18 06:51 Blood Pressure 127/82 10/12/18 06:51 O2 Sat by Pulse Oximetry (%) 98 10/12/18 07:15 Cardiovascular: Yes: S1, S2 Respiratory: Yes: Diminished, On Nasal O2, Rhonchi, Wheezes Gastrointestinal: Yes: Normal Bowel Sounds, Soft Labs: CBC, BMP 10/12/18 05:30 10/12/18 05:30 INR, PTT INR 1.24 (0.83-1.09) H 10/11/18 20:41 Problem List - Problems (1) Acute on chronic respiratory failure with hypoxemia Assessment/Plan: flu was negative. -albuterol neb q6hrs -prednisone 40mg po bd -supplemental o2 via nasal cannula -tiotropium bromide 2 puffs/ day Code(s): J96.21 - ACUTE AND CHRONIC RESPIRATORY FAILURE WITH HYPOXIA (2) CHF exacerbation Assessment/Plan: -admit to telemetry -michelle catheter -i/o -daily weights -cardiology and pulm consults -lasix 40mg IV daily -bblocker -ACEi -spironolactone -fluid restriction -salt restriction -echo -trend troponin -monitor closely on telemetry Code(s): I50.9 - HEART FAILURE, UNSPECIFIED Qualifiers: Heart failure type: unspecified Qualified Code(s): I50.9 - Heart failure, unspecified (3) COPD (chronic obstructive pulmonary disease) Code(s): J44.9 - CHRONIC OBSTRUCTIVE PULMONARY DISEASE, UNSPECIFIED Qualifiers: COPD type: unspecified COPD Qualified Code(s): J44.9 - Chronic obstructive pulmonary disease, unspecified (4) Diabetes Assessment/Plan: -novolog sliding scale -diabetic diet -a1dc Code(s): E11.9 - TYPE 2 DIABETES MELLITUS WITHOUT COMPLICATIONS Qualifiers: Diabetes mellitus type: type 2 Diabetes mellitus long goods drier insulin use: with [facility] use Diabetes mellitus complication status: with unspecified complications Qualified Code(s): E11.8 - Type 2 diabetes mellitus with unspecified complications; Z79.4 - intermediate designer (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 of insulin
[2018-10-12] MEDS ORDERED: LOSARTAN POTASSIUM 25 MG TABLET PO SCH (10:00)
[2018-10-12] MEDS ORDERED: METOPROLOL TARTRATE 25 MG TABLET (FP) PO SCH (10:00)
[2018-10-12] MEDS ORDERED: LISINOPRIL 10 MG TABLET (FP) PO SCH (10:00)
[2018-10-12] MEDS ORDERED: FUROSEMIDE 40 MG/4 ML INJECTABLE VIAL IVPUSH SCH (10:00)
--- NOTE | 2018-10-12 10:28 | EKG ---
Test Reason : Blood Pressure : / mmHG Vent. Rate : 097 BPM Atrial Rate : 097 BPM P-R Int : 146 ms QRS Dur : 090 ms QT Int : 374 ms P-R-T Axes : -03 112 095 degrees QTc Int : 474 ms NORMAL SINUS RHYTHM RIGHT AXIS DEVIATION ABNORMAL ECG Confirmed by BEN CRUZ MD ([id number]) on 10/12/2018 10:27:44 AM Referred By: Confirmed By:BEN CRUZ MD
[2018-10-12] MEDS: CARVEDILOL 6.25 MG TABLET (FP) PO SCH ×2 (10:30→22:08)
[2018-10-12] MEDS: SPIRONOLACTONE 25 MG TABLET (FP) PO SCH (10:30)
[2018-10-12] MEDS: predniSONE 20 MG TABLET (UD) PO SCH ×2 (10:30→22:08)
[2018-10-12] MEDS: AZITHROMYCIN 250 MG TABLET PO SCH (10:31)
[2018-10-12] MEDS: PANTOPRAZOLE 20 MG TABLET (FP) PO SCH (10:31)
[2018-10-12] MEDS: HEPARIN NA (PORCINE) 5,000 UNITS/ML 1ML VIAL SQ SCH ×2 (10:31→22:10)
[2018-10-12] MEDS: TIOTROPIUM BROMIDE 2.5 MCG (SPIRIVA) RESPIMAT INHALER IH SCH (10:35)
[2018-10-12] MEDS ORDERED: FLU VACCINE QUAD 60 MCG/0.5 ML (MDV 18-19) IM ONE (12:37)
--- NOTE | 2018-10-12 13:37 | PN ---
Progress Note (short form) - Note Progress Note: PULMONARY CONSULTATION DICTATED 10/12/18 IMP ACUTE ON CHRONIC HYPOXEMIC RESPIRATORY FAILURE ACUTE ON CHRONIC CHF NON-ISCHEMIC CARDIOMYOPATHY COPD ? PNEUMONIA PLAN IV LASIX O2 INHALED BRONCHODILATORS DAILY WT F/U CHESTS X-RAYS MONITOR LYTES STRICT I+Os DR LOMELI Problem List - Problems (1) Acute on chronic respiratory failure with hypoxemia Code(s): J96.21 - ACUTE AND CHRONIC RESPIRATORY FAILURE WITH HYPOXIA (2) CHF exacerbation Code(s): I50.9 - HEART FAILURE, UNSPECIFIED Qualifiers: Heart failure type: unspecified Qualified Code(s): I50.9 - Heart failure, unspecified (3) COPD (chronic obstructive pulmonary disease) Code(s): J44.9 - CHRONIC OBSTRUCTIVE PULMONARY DISEASE, UNSPECIFIED Qualifiers: COPD type: unspecified COPD Qualified Code(s): J44.9 - Chronic obstructive pulmonary disease, unspecified (4) Diabetes Code(s): E11.9 - TYPE 2 DIABETES MELLITUS WITHOUT COMPLICATIONS Qualifiers: Diabetes mellitus type: type 2 Diabetes mellitus intermediate card tender insulin use: with assisted use Diabetes mellitus complication status: with unspecified complications Qualified Code(s): E11.8 - Type 2 diabetes mellitus with unspecified complications; Z79.4 - terminal clerk (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 of insulin (5) Acute on chronic systolic (congestive) heart failure Code(s): I50.23 - ACUTE ON CHRONIC SYSTOLIC (CONGESTIVE) HEART FAILURE (6) COPD exacerbation Code(s): J44.1 - CHRONIC OBSTRUCTIVE PULMONARY DISEASE W (ACUTE) EXACERBATION (7) Cardiomyopathy Code(s): I42.9 - CARDIOMYOPATHY, UNSPECIFIED Qualifiers: Cardiomyopathy type: unspecified Qualified Code(s): I42.9 - Cardiomyopathy , unspecified (8) Controlled type 1 diabetes mellitus with peripheral vascular disease Code(s): E10.51 - TYPE 1 DIABETES W DIABETIC PERIPHERAL ANGIOPATH W/O GANGRENE (9) HTN (hypertension) Code(s): I10 - ESSENTIAL (PRIMARY) HYPERTENSION Qualifiers: Hypertension type: essential hypertension Qualified Code(s): I10 - Essential (primary) hypertension (10) Shortness of breath Code(s): R06.02 - SHORTNESS OF BREATH
[2018-10-12] MEDS: FUROSEMIDE 40 MG/4 ML INJECTABLE VIAL IVPUSH SCH (13:54)
--- NOTE | 2018-10-12 14:48 | CON.CARD ---
Consult Consult Specialty:: Cardiology Referred by:: Cathi Reason for Consultation:: chf cp - History of Present Illness Chief Complaint: sob, chest pain History of Present Illness: The patient is a 58-year-old obese female, with a history of diabetes, hypertension, hyperlipidemia, COPD/asthma, nonischemic cardiomyopathy with severe chronic systolic dysfunction, normal coronary arteries 10/28, now admitted with shortness of breath and chest pain, found with worsening CHF on CXR and increasing pro bnp. Known EF 15-20% by echo from 04/2018 - Past Medical History Cardio/Vascular: Yes: CHF, HTN, Hyperlipdemia. No: AFIB, CAD Pulmonary: Yes: Asthma, COPD, O2 Dependent. No: Pneumonia, Previously Intubated , Pulmonary Embolus, Pulmonary Fibrosis, Sleep Apnea Gastrointestinal: Yes: GERD. No: Cancer Renal/: Yes: Renal Inusuff Endocrine: Yes: Diabetes Mellitus - Alcohol/Substance Use Hx Alcohol Use: No History of Substance Use: reports: None - Smoking History Smoking history: Former smoker Have you smoked in the past 12 months: Yes Aproximately how many cigarettes per day: 10 If you are a former smoker, when did you quit?: 2 WEEKS AGO - Social History Usual Living Arrangement: With Spouse ADL: Independent History of Recent Travel: No Home Medications - Allergies Allergies/Adverse Reactions: Allergies Allergy/AdvReac Type Severity Reaction Status Date / Time No Known Allergies Allergy Verified 10/11/18 19:50 - Home Medications Home Medications: Ambulatory Orders Albuterol 2.5/Ipratropium 0.5 [Duoneb -] 1 neb NEB Q4H PRN #180 amp 05/03/17 Atorvastatin Ca [Lipitor] 10 mg PO HS #30 tab 05/03/17 Linaclotide [Linzess] 145 mcg PO DAILY #30 cap 05/03/17 Montelukast Na [Singulair -] 10 mg PO HS #30 tab 05/03/17 Esomeprazole Magnesium [Nexium 24Hr] 20 mg PO DAILY 04/20/18 Carvedilol [Coreg -] 6.25 mg PO BID #60 tablet 04/24/18 Furosemide [Lasix -] 40 mg PO DAILY #30 tablet 04/24/18 Insulin (Levemir) [Levemir Vial] 15 units SQ ACBK units 04/24/18 Insulin Sliding Scale [Novolog Vial Sliding Scale -] 1 vial SQ HS units Losartan Potassium [Cozaar -] 25 mg PO DAILY #30 tablet 04/24/18 Spironolactone [Aldactone -] 25 mg PO DAILY #30 tablet 04/24/18 Magnesium Hydrox 2400MG/30Ml [Milk of Magnesia -] 30 ml PO Q8H PRN #1 bot Polyethylene Glycol 3350 [Miralax 119 gm Btl -] 17 gm PO DAILY #1 bottle Sennosides [Senna -] 1 tab PO HS #30 tablet 05/02/18 Dapagliflozin Propanediol [Farxiga] 10 mg PO DAILY 09/20/18 Farxiga 10 mg PO DAILY 09/21/18 Albuterol 0.083% Nebulizer Chayito [Ventolin 0.083% Nebulizer Soln -] 1 amp NEB Q4H PRN amp 09/26/18 Methylprednisolone [Medrol Dose Ivan] 4 mg PO ASDIR #21 tablet 09/26/18 Nicotine Patch [Nicoderm Patch -] 7 mg TD DAILY #30 patch 09/26/18 Family Disease History - Family Disease History Family Disease History: Diabetes: Father, Brother Review of Systems - Review of Systems Constitutional: reports: No Symptoms Eyes: reports: No Symptoms HENT: reports: No Symptoms Neck: reports: No Symptoms Gastrointestinal: reports: No Symptoms Genitourinary: reports: No Symptoms Vital Signs: Vital Signs Temperature 98.0 F 10/12/18 12:15 Pulse Rate 94 H 10/12/18 12:15 Respiratory Rate 22 H 10/12/18 12:15 Blood Pressure 153/110 H 10/12/18 12:15 O2 Sat by Pulse Oximetry (%) 99 10/12/18 12:15 Constitutional: Yes: No Distress, Calm, Poor Hygeine Eyes: Yes: Conjunctiva Clear, EOM Intact HENT: Yes: Normocephalic Neck: Yes: Supple, Thyromegaly Respiratory: Yes: Rales (bilat bases) Gastrointestinal: Yes: Normal Bowel Sounds, Soft Cardiovascular: Yes: Regular Rate and Rhythm JVD: Yes Carotid Bruit: No PMI: Displaced Heart Sounds: Yes: S1, S2 Musculoskeletal: Yes: WNL Extremities: Yes: WNL Edema: LLE: Trace, RLE: Trace Peripheral Pulses WNL: Yes - Other Data Labs, Other Data: CBC, BMP 10/12/18 05:30 10/12/18 05:30 INR, PTT INR 1.24 (0.83-1.09) H 10/11/18 20:41 Troponin, BNP 10/11/18 10/12/18 10/12/18 20:41 04:30 05:30 Troponin I 0.04 0.05 0.05 B-Natriuretic Peptide 5511.9 H Troponin, BNP 10/11/18 10/12/18 10/12/18 20:41 04:30 05:30 Troponin I 0.04 0.05 0.05 B-Natriuretic Peptide 5511.9 H Imaging - Results Chest X-ray: Report Reviewed (chf) EKG: Report Reviewed Assessment/Plan The patient is a 58-year-old obese female, with a history of diabetes, hypertension, hyperlipidemia, COPD/asthma, nonischemic cardiomyopathy with severe chronic systolic dysfunction, normal coronary arteries 10/28, now admitted with shortness of breath and chest pain, found with worsening CHF on CXR and increasing pro bnp. Known EF 15-20% by echo from 04/2018 1. chest pain--normal coronaries by cath 2017. no testing is needed. 2. Acute on chronic systolic CHF -keep O>I -2 liter fluid restrict, 2gm NA diet. -change losartan to entresto low dose -daily weights -lung rx per pulmonary. will follow with you.
--- NOTE | 2018-10-12 15:33 | ECHO ---
Name: RISSA, NANCY Exam:Adult Echocardiogram Study Date: 10/12/2018 02:41 PM Age: 58 yrs Reason For Study: CHF Height: 63 in Weight: 200 lb BSA: 1.9 m2 MMode/2D Measurements & Calculations IVSd: 1.2 cm Ao root diam: 2.6 cm LVIDd: 3.9 cm LA dimension: 3.7 cm LVIDs: 4.5 cm LVPWd: 2.6 cm LVPWs: 2.1 cm EDV(Teich): 67.0 ml ESV(Teich): 90.5 ml LVOT diam: 2.1 cm LAV (MOD-bp): 62.3 ml TAPSE: 1.4 cm RV S Tito: 6.6 cm/sec Doppler Measurements & Calculations Ao V2 max: 112.5 cm/sec LV V1 max P.7 mmHg Ao max P.1 mmHg LV V1 mean P.93 mmHg Ao V2 mean: 82.8 cm/sec LV V1 max: 66.1 cm/sec Ao mean P.1 mmHg LV V1 mean: 43.6 cm/sec Ao V2 VTI: 17.5 cm LV V1 VTI: 11.7 cm EAN(I,D): 2.4 cm2 EAN(V,D): 2.1 cm2 MR max tito: 499.8 cm/sec SV(LVOT): 42.1 ml MR max P.1 mmHg TR max tito: 283.4 cm/sec PA V2 max: 77.1 cm/sec TR max P.3 mmHg PA max P.4 mmHg Med Peak E' Tito: 4.0 cm/sec Lat Peak E' Tito: 7.1 cm/sec Left Ventricle Left ventricular systolic function is severely reduced. Ejection Fraction = 30-35%. There is severe g lobal hypokinesis of the left ventricle. Right Ventricle The right ventricle is grossly normal size. The right ventricular systolic function is grossly normal . Atria The left atrium is mildly dilated. Mitral Valve The mitral valve is grossly normal. There is no mitral valve stenosis. There is moderate mitral regur gitation. The mitral regurgitant jet is eccentrically directed. Tricuspid Valve The tricuspid valve is not well visualized, but is grossly normal. There is moderate tricuspid regurg itation. Right ventricular systolic pressure is elevated at 40-50mmHg. Aortic Valve The aortic valve opens well. No hemodynamically significant valvular aortic stenosis. No aortic regur gitation is present. Pulmonic Valve The pulmonic valve is not well seen, but is grossly normal. There is no pulmonic valvular stenosis. T here is no pulmonic valvular regurgitation. Great Vessels The aortic root is normal size. Pericardium/Pleura There is no pericardial effusion. Interpretation Summary Left ventricular systolic function is severely reduced. Ejection Fraction = 30-35%. There is severe global hypokinesis of the left ventricle. The left atrium is mildly dilated. There is moderate mitral regurgitation. The mitral regurgitant jet is eccentrically directed. There is moderate tricuspid regurgitation. Right ventricular systolic pressure is elevated at 40-50mmHg. There is no pericardial effusion. MD Holland *David 10/12/2018 03:33 PM
[2018-10-12] MEDS: SACUBITRIL/VALSARTAN 24 MG-26 MG TABLET PO SCH (22:09)
[2018-10-12] MEDS: MONTELUKAST NA 10 MG TABLET PO SCH (22:10)
[2018-10-13] MEDS: FUROSEMIDE 40 MG/4 ML INJECTABLE VIAL IVPUSH SCH ×2 (06:45→15:43)
[2018-10-13] MEDS: INSULIN SLIDING SCALE (NOVOLOG) 1 VIAL SQ SCH ×4 (06:45→23:23)
[2018-10-13] MEDS: ALBUTEROL SO4 0.083% IH SOL 2.5 MG/3 ML VIAL.NEB. NEB SCH ×4 (07:50→20:53)
[2018-10-13] MEDS ORDERED: PT OWN MED DRAWER 7, Y5N ONE (09:37)
[2018-10-13] MEDS: TIOTROPIUM BROMIDE 2.5 MCG (SPIRIVA) RESPIMAT INHALER IH SCH (09:45)
[2018-10-13] MEDS: CARVEDILOL 6.25 MG TABLET (FP) PO SCH ×2 (10:10→23:22)
[2018-10-13] MEDS: AZITHROMYCIN 250 MG TABLET PO SCH (10:10)
[2018-10-13] MEDS: predniSONE 20 MG TABLET (UD) PO SCH ×2 (10:10→23:21)
[2018-10-13] MEDS: PANTOPRAZOLE 20 MG TABLET (FP) PO SCH (10:11)
[2018-10-13] MEDS: SPIRONOLACTONE 25 MG TABLET (FP) PO SCH (10:11)
[2018-10-13] MEDS: SACUBITRIL/VALSARTAN 24 MG-26 MG TABLET PO SCH ×2 (10:11→23:22)
[2018-10-13] MEDS: HEPARIN NA (PORCINE) 5,000 UNITS/ML 1ML VIAL SQ SCH ×2 (10:11→23:22)
--- NOTE | 2018-10-13 12:44 | PN ---
Progress Note, Physician Chief Complaint: AWAKE ALERT EVENTS AND NOTES REVIEWED - Current Medication List Current Medications: Active Medications Albuterol Sulfate (Ventolin 0.083% Nebulizer Soln -) 1 amp NEB Q4H PRN PRN Reason: SHORT OF BREATH/WHEEZING Albuterol Sulfate (Ventolin 0.083% Nebulizer Soln -) 1 amp NEB RQID [facility] Last Admin: 10/13/18 11:15 Dose: 1 amp Azithromycin (Zithromax -) 500 mg PO DAILY [facility] Last Admin: 10/13/18 10:10 Dose: 500 mg Carvedilol (Coreg -) 6.25 mg PO BID [facility] Last Admin: 10/13/18 10:10 Dose: 6.25 mg Furosemide (Lasix Injection -) 40 mg IVPUSH BIDLASIX [facility] Last Admin: 10/13/18 06:45 Dose: 40 mg Heparin Sodium (Porcine) (Heparin -) 5,000 unit SQ BID [facility] Last Admin: 10/13/18 10:11 Dose: 5,000 unit Insulin Aspart (Novolog Vial Sliding Scale -) 1 vial SQ [facility]; Protocol Last Admin: 10/13/18 06:45 Dose: 12 units Insulin Detemir (Levemir Vial) 15 units SQ HS [facility] Last Admin: 10/12/18 22:14 Dose: 15 units Montelukast Sodium (Singulair -) 10 mg PO HS [facility] Last Admin: 10/12/18 22:10 Dose: 10 mg Pantoprazole Sodium (Protonix -) 20 mg PO DAILY [facility] Last Admin: 10/13/18 10:11 Dose: 20 mg Prednisone (Deltasone -) 40 mg PO BID [facility] Last Admin: 10/13/18 10:10 Dose: 40 mg Sacubitril/Valsartan (Entresto 24 Mg-26 Mg Tablet) 1 tab PO BID [facility] Last Admin: 10/13/18 10:11 Dose: 1 tab Spironolactone (Aldactone -) 25 mg PO DAILY [facility] Last Admin: 10/13/18 10:11 Dose: 25 mg Tiotropium [place] (Spiriva Respimat) 2 puff IH DAILY [facility] Last Admin: 10/13/18 09:45 Dose: 2 puff - Objective Vital Signs: Vital Signs Temperature 98 F 10/13/18 09:03 Pulse Rate 118 H 10/13/18 09:03 Respiratory Rate 20 10/13/18 09:03 Blood Pressure 129/54 L 10/13/18 09:03 O2 Sat by Pulse Oximetry (%) 97 10/13/18 09:00 Constitutional: Yes: Mild Distress Eyes: Yes: WNL HENT: Yes: WNL Neck: Yes: WNL Cardiovascular: Yes: Regular Rate and Rhythm Respiratory: Yes: WNL Gastrointestinal: Yes: WNL Genitourinary: Yes: Zuñiga Present Musculoskeletal: Yes: Muscle Weakness Extremities: Yes: WNL Edema: Yes Peripheral Pulses WNL: Yes Integumentary: Yes: WNL Wound/Incision: Yes: Clean/Dry Neurological: Yes: Confusion, Pre-Existing Deficit ...Motor Strength: WNL Psychiatric: Yes: Other Labs: CBC, BMP 10/12/18 05:30 10/12/18 05:30 INR, PTT INR 1.24 (0.83-1.09) H 10/11/18 20:41 Problem List - Problems (1) Acute on chronic respiratory failure with hypoxemia Code(s): J96.21 - ACUTE AND CHRONIC RESPIRATORY FAILURE WITH HYPOXIA (2) CHF exacerbation Code(s): I50.9 - HEART FAILURE, UNSPECIFIED Qualifiers: Heart failure type: unspecified Qualified Code(s): I50.9 - Heart failure, unspecified (3) COPD (chronic obstructive pulmonary disease) Code(s): J44.9 - CHRONIC OBSTRUCTIVE PULMONARY DISEASE, UNSPECIFIED Qualifiers: COPD type: unspecified COPD Qualified Code(s): J44.9 - Chronic obstructive pulmonary disease, unspecified (4) Diabetes Code(s): E11.9 - TYPE 2 DIABETES MELLITUS WITHOUT COMPLICATIONS Qualifiers: Diabetes mellitus type: type 2 Diabetes mellitus intermodal dispatcher insulin use: with intermodal dispatcher use Diabetes mellitus complication status: with unspecified complications Qualified Code(s): E11.8 - Type 2 diabetes mellitus with unspecified complications; 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 (5) Acute on chronic systolic (congestive) heart failure Code(s): I50.23 - ACUTE ON CHRONIC SYSTOLIC (CONGESTIVE) HEART FAILURE (6) Diabetes 1.5, managed as type 1 Code(s): E10.9 - TYPE 1 DIABETES MELLITUS WITHOUT COMPLICATIONS (7) HTN (hypertension) Code(s): I10 - ESSENTIAL (PRIMARY) HYPERTENSION Qualifiers: Hypertension type: essential hypertension Qualified Code(s): I10 - Essential (primary) hypertension (8) Non-compliance with treatment Code(s): Z91.19 - PATIENT'S NONCOMPLIANCE W OTH MEDICAL TREATMENT AND REGIMEN (9) Toxic metabolic encephalopathy Code(s): G92 - TOXIC ENCEPHALOPATHY (10) Uncontrolled diabetes mellitus Code(s): E11.65 - TYPE 2 DIABETES MELLITUS WITH HYPERGLYCEMIA Assessment/Plan PO AZITHROMYCIN NEBS OOB TO CHAIR WITH ASSIST ONLY DC ZUÑIGA PSYCH EVAL FOR NON-COMPLIANCE TO LIFESTYLE CHANGES AND DIETARY MODIFICATIONS AND MEDICAL FOLLOW UP.
--- NOTE | 2018-10-13 12:58 | PN ---
Progress Note (short form) - Note Progress Note: Awake and alert. Mildly tachypneic at rest. No CP. Some dry cough. Intake & Output 10/10/18 10/11/18 10/12/18 10/13/18 23:59 23:59 23:59 23:59 Intake Total 780 460 Output Total 200 1200 1400 Balance -200 -420 -940 Weight 200 lb 212 lb 2 oz Last Vital Signs Temp Pulse Resp BP Pulse Ox 98 F 118 H 20 129/54 L 97 10/13/18 09:03 10/13/18 09:03 10/13/18 09:03 10/13/18 09:03 10/13/18 09:00 Active Medications Albuterol Sulfate (Ventolin 0.083% Nebulizer Soln -) 1 amp NEB Q4H PRN PRN Reason: SHORT OF BREATH/WHEEZING Albuterol Sulfate (Ventolin 0.083% Nebulizer Soln -) 1 amp NEB RQID [facility] Last Admin: 10/13/18 11:15 Dose: 1 amp Azithromycin (Zithromax -) 500 mg PO DAILY [facility] Last Admin: 10/13/18 10:10 Dose: 500 mg Carvedilol (Coreg -) 6.25 mg PO BID [facility] Last Admin: 10/13/18 10:10 Dose: 6.25 mg Fluconazole (Diflucan -) 200 mg PO DAILY [facility] Furosemide (Lasix Injection -) 40 mg IVPUSH BIDLASIX [facility] Last Admin: 10/13/18 06:45 Dose: 40 mg Heparin Sodium (Porcine) (Heparin -) 5,000 unit SQ BID [facility] Last Admin: 10/13/18 10:11 Dose: 5,000 unit Insulin Aspart (Novolog Vial Sliding Scale -) 1 vial SQ ACHS [facility]; Protocol Last Admin: 10/13/18 12:54 Dose: 4 units Insulin Detemir (Levemir Vial) 15 units SQ HS [facility] Last Admin: 10/12/18 22:14 Dose: 15 units Montelukast Sodium (Singulair -) 10 mg PO HS [facility] Last Admin: 10/12/18 22:10 Dose: 10 mg Pantoprazole Sodium (Protonix -) 20 mg PO DAILY [facility] Last Admin: 10/13/18 10:11 Dose: 20 mg Prednisone (Deltasone -) 40 mg PO BID [facility] Last Admin: 10/13/18 10:10 Dose: 40 mg Sacubitril/Valsartan (Entresto 24 Mg-26 Mg Tablet) 1 tab PO BID [facility] Last Admin: 10/13/18 10:11 Dose: 1 tab Spironolactone (Aldactone -) 25 mg PO DAILY [facility] Last Admin: 10/13/18 10:11 Dose: 25 mg Tiotropium [place] (Spiriva Respimat) 2 puff IH DAILY [facility] Last Admin: 10/13/18 09:45 Dose: 2 puff Constitutional: Yes: Mildly tachypneic at rest Eyes: Yes: WNL HENT: Yes: WNL Neck: Yes: WNL Cardiovascular: Yes: Regular Rate and Rhythm Respiratory: Yes: Bilateral rales / rhonchi Gastrointestinal: Yes: WNL Musculoskeletal: Yes: Muscle Weakness Extremities: Yes: WNL Edema: Yes Peripheral Pulses WNL: Yes Integumentary: Yes: WNL Neurological: Yes: Non-focal ...Motor Strength: WNL Psychiatric: Yes: Other Labs: Laboratory Results - last 24 hr 10/12/18 10/12/18 10/12/18 17:10 22:12 22:14 POC Glucometer 310 494 489 10/13/18 10/13/18 06:10 12:21 POC Glucometer 432 215 Problem List - Problems (1) Acute on chronic respiratory failure with hypoxemia Code(s): J96.21 - ACUTE AND CHRONIC RESPIRATORY FAILURE WITH HYPOXIA (2) CHF exacerbation Code(s): I50.9 - HEART FAILURE, UNSPECIFIED Qualifiers: Heart failure type: unspecified Qualified Code(s): I50.9 - Heart failure, unspecified (3) COPD (chronic obstructive pulmonary disease) Code(s): J44.9 - CHRONIC OBSTRUCTIVE PULMONARY DISEASE, UNSPECIFIED Qualifiers: COPD type: unspecified COPD Qualified Code(s): J44.9 - Chronic obstructive pulmonary disease, unspecified (4) Diabetes Code(s): E11.9 - TYPE 2 DIABETES MELLITUS WITHOUT COMPLICATIONS Qualifiers: Diabetes mellitus type: type 2 Diabetes mellitus adjunct faculty for medical terminology insulin use: with adjunct faculty for medical terminology use Diabetes mellitus complication status: with unspecified complications Qualified Code(s): E11.8 - Type 2 diabetes mellitus with unspecified complications; Z79.4 - [facility] (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 of insulin (5) Acute on chronic systolic (congestive) heart failure Code(s): I50.23 - ACUTE ON CHRONIC SYSTOLIC (CONGESTIVE) HEART FAILURE (6) COPD exacerbation Code(s): J44.1 - CHRONIC OBSTRUCTIVE PULMONARY DISEASE W (ACUTE) EXACERBATION (7) Cardiomyopathy Code(s): I42.9 - CARDIOMYOPATHY, UNSPECIFIED Qualifiers: Cardiomyopathy type: unspecified Qualified Code(s): I42.9 - Cardiomyopathy , unspecified (8) Controlled type 1 diabetes mellitus with peripheral vascular disease Code(s): E10.51 - TYPE 1 DIABETES W DIABETIC PERIPHERAL ANGIOPATH W/O GANGRENE (9) HTN (hypertension) Code(s): I10 - ESSENTIAL (PRIMARY) HYPERTENSION Qualifiers: Hypertension type: essential hypertension Qualified Code(s): I10 - Essential (primary) hypertension (10) Shortness of breath Code(s): R06.02 - SHORTNESS OF BREATH IMP ACUTE ON CHRONIC HYPOXEMIC RESPIRATORY FAILURE ACUTE ON CHRONIC CHF NON-ISCHEMIC CARDIOMYOPATHY COPD DO NOT SUSPECT PNEUMONIA PLAN IV LASIX O2 INHALED BRONCHODILATORS DAILY WT PREDNISONE DUONEB NOTED: CAUTION WITH CONCOMITANT LAMA SPIRIVA MONITOR LYTES STRICT I+Os MONITOR OFF ABX DR HICKMAN
--- NOTE | 2018-10-13 15:04 | PN ---
Progress Note, Physician History of Present Illness: seen and examined today in nad. no overnight events. no new complaints. states she is feeling better. episode of tachycardia this am sinus tach vs mat - Current Medication List Current Medications: Active Medications Albuterol Sulfate (Ventolin 0.083% Nebulizer Soln -) 1 amp NEB Q4H PRN PRN Reason: SHORT OF BREATH/WHEEZING Albuterol Sulfate (Ventolin 0.083% Nebulizer Soln -) 1 amp NEB RQID [facility] Last Admin: 10/13/18 11:15 Dose: 1 amp Azithromycin (Zithromax -) 500 mg PO DAILY [facility] Last Admin: 10/13/18 10:10 Dose: 500 mg Carvedilol (Coreg -) 6.25 mg PO BID [facility] Last Admin: 10/13/18 10:10 Dose: 6.25 mg Fluconazole (Diflucan -) 200 mg PO DAILY [facility] Furosemide (Lasix Injection -) 40 mg IVPUSH BIDLASIX [facility] Last Admin: 10/13/18 06:45 Dose: 40 mg Heparin Sodium (Porcine) (Heparin -) 5,000 unit SQ BID [facility] Last Admin: 10/13/18 10:11 Dose: 5,000 unit Insulin Aspart (Novolog Vial Sliding Scale -) 1 vial SQ [facility]; Protocol Last Admin: 10/13/18 12:54 Dose: 4 units Insulin Detemir (Levemir Vial) 15 units SQ HS [facility] Last Admin: 10/12/18 22:14 Dose: 15 units Montelukast Sodium (Singulair -) 10 mg PO HS [facility] Last Admin: 10/12/18 22:10 Dose: 10 mg Pantoprazole Sodium (Protonix -) 20 mg PO DAILY [facility] Last Admin: 10/13/18 10:11 Dose: 20 mg Prednisone (Deltasone -) 40 mg PO BID [facility] Last Admin: 10/13/18 10:10 Dose: 40 mg Sacubitril/Valsartan (Entresto 24 Mg-26 Mg Tablet) 1 tab PO BID [facility] Last Admin: 10/13/18 10:11 Dose: 1 tab Spironolactone (Aldactone -) 25 mg PO DAILY [facility] Last Admin: 10/13/18 10:11 Dose: 25 mg Tiotropium [place] (Spiriva Respimat) 2 puff IH DAILY [facility] Last Admin: 10/13/18 09:45 Dose: 2 puff - Objective Vital Signs: Vital Signs Temperature 98 F 10/13/18 09:03 Pulse Rate 118 H 10/13/18 09:03 Respiratory Rate 20 10/13/18 09:03 Blood Pressure 129/54 L 10/13/18 09:03 O2 Sat by Pulse Oximetry (%) 97 10/13/18 09:00 Constitutional: Yes: No Distress, Calm Eyes: Yes: Conjunctiva Clear, EOM Intact HENT: Yes: Atraumatic, Normocephalic Neck: Yes: Supple, Trachea Midline Cardiovascular: Yes: Regular Rate and Rhythm, S1, S2. No: Bradycardia, Tachycardia, Pulse Irregular, Bruit, JVD, Gallop, Murmur, Rub, S3, S4, Varicosities Respiratory: Yes: Regular, Diminished, On Nasal O2, Rales, Rhonchi, Wheezes. No : SOB Gastrointestinal: Yes: Normal Bowel Sounds, Soft. No: Distention, Tenderness Musculoskeletal: Yes: WNL Extremities: Yes: WNL Edema: No Peripheral Pulses WNL: Yes Neurological: Yes: Alert, Oriented Psychiatric: Yes: Alert, Oriented Labs: CBC, BMP 10/12/18 05:30 10/12/18 05:30 INR, PTT INR 1.24 (0.83-1.09) H 10/11/18 20:41 - ....Imaging Chest X-ray: Report Reviewed, Image Reviewed EKG: Report Reviewed, Image Reviewed Other: Report Reviewed, Image Reviewed (tele-nsr, apcs, pvcs, sinus tach vs mat) Assessment/Plan The patient is a 58-year-old obese female, with a history of diabetes, hypertension, hyperlipidemia, COPD/asthma, nonischemic cardiomyopathy with severe chronic systolic dysfunction, normal coronary arteries 10/28, now admitted with shortness of breath and chest pain, found with worsening CHF on CXR and increasing pro bnp. Known EF 15-20% by echo from 04/2018 1. chest pain- -normal coronaries by cath 2016. no testing is needed. 2. Acute on chronic systolic CHF -echo severe global LV systolic dysfunction, mod mr/tr, mild to mod pah -cont IV lasix -strict I/Os and daily weights -monitor bun/creat, electrolytes and replete as needed -keep O>I -2 liter fluid restrict, 2gm NA diet. -cont entresto, coreg, aldactone -daily weights -lung rx per pulmonary.
[2018-10-13] MEDS: FLUCONAZOLE 100 MG TABLET (UD) PO SCH (15:43)
--- NOTE | 2018-10-13 21:56 | CONSULT ---
Consult Consult Specialty:: ENDOCRINE Referred by:: DR.IYAD CHO Reason for Consultation:: DIABETES MELLITUS UNCONTROLLED - History of Present Illness Chief Complaint: HIGH SUGARS History of Present Illness: 58 year old female with a PMH of DM2, CHF,copd, HTN, and HLD who presents to the ER with shortness of breath and wheezing. she had cough congestion, difficulty breathing . Patient was administered nebs and decadron via EMS. Patient had a blood glucose of 52 here in the ER.She has not been eating well despite this she took wrong amount of insulin and had low sugars. she does not maintain strict diet and test sugar frequently - Past Medical History Cardio/Vascular: Yes: CHF, HTN, Hyperlipdemia. No: AFIB, CAD Pulmonary: Yes: Asthma, COPD, O2 Dependent. No: Pneumonia, Previously Intubated , Pulmonary Embolus, Pulmonary Fibrosis, Sleep Apnea Gastrointestinal: Yes: GERD. No: Cancer Renal/: Yes: Renal Inusuff Endocrine: Yes: Diabetes Mellitus - Alcohol/Substance Use Hx Alcohol Use: No History of Substance Use: reports: None - Smoking History Smoking history: Former smoker Have you smoked in the past 12 months: Yes Aproximately how many cigarettes per day: 10 If you are a former smoker, when did you quit?: 2 WEEKS AGO - Social History Usual Living Arrangement: With Spouse ADL: Independent History of Recent Travel: No Home Medications - Allergies Allergies/Adverse Reactions: Allergies Allergy/AdvReac Type Severity Reaction Status Date / Time No Known Allergies Allergy Verified 10/11/18 19:50 - Home Medications Home Medications: Ambulatory Orders Albuterol 2.5/Ipratropium 0.5 [Duoneb -] 1 neb NEB Q4H PRN #180 amp 05/03/17 Atorvastatin Ca [Lipitor] 10 mg PO HS #30 tab 05/03/17 Linaclotide [Linzess] 145 mcg PO DAILY #30 cap 05/03/17 Montelukast Na [Singulair -] 10 mg PO HS #30 tab 05/03/17 Esomeprazole Magnesium [Nexium 24Hr] 20 mg PO DAILY 04/20/18 Carvedilol [Coreg -] 6.25 mg PO BID #60 tablet 04/24/18 Furosemide [Lasix -] 40 mg PO DAILY #30 tablet 04/24/18 Insulin (Levemir) [Levemir Vial] 15 units SQ [facility] units 04/24/18 Insulin Sliding Scale [Novolog Vial Sliding Scale -] 1 vial SQ HS units Losartan Potassium [Cozaar -] 25 mg PO DAILY #30 tablet 04/24/18 Spironolactone [Aldactone -] 25 mg PO DAILY #30 tablet 04/24/18 Magnesium Hydrox 2400MG/30Ml [Milk of Magnesia -] 30 ml PO Q8H PRN #1 bot Polyethylene Glycol 3350 [Miralax 119 gm Btl -] 17 gm PO DAILY #1 bottle Sennosides [Senna -] 1 tab PO HS #30 tablet 05/02/18 Dapagliflozin Propanediol [Farxiga] 10 mg PO DAILY 09/20/18 Farxiga 10 mg PO DAILY 09/21/18 Albuterol 0.083% Nebulizer [place] [Ventolin 0.083% Nebulizer Soln -] 1 amp NEB Q4H PRN amp 09/26/18 Methylprednisolone [Medrol Dose Ivan] 4 mg PO ASDIR #21 tablet 09/26/18 Nicotine Patch [Nicoderm Patch -] 7 mg TD DAILY #30 patch 09/26/18 Family Disease History - Family Disease History Family Disease History: Diabetes: Father, Brother Review of Systems - Review of Systems Constitutional: reports: Lethargy, Weakness Eyes: reports: No Symptoms HENT: reports: No Symptoms Neck: reports: Swollen Glands Cardiovascular: reports: Palpitations, Shortness of Breath Respiratory: reports: Exercise Intolerance, SOB, SOB on Exertion, Wheezing Gastrointestinal: reports: Bloating, Constipation Genitourinary: reports: No Symptoms Breasts: reports: No Symptoms Reported Musculoskeletal: reports: Joint Swelling, Muscle Pain, Muscle Cramps, Muscle Weakness Neurological: reports: Numbness, Weakness Endocrine: reports: Unexplained Weight Gain Physical Exam Vital Signs: Vital Signs Temperature 97.8 F 10/13/18 17:55 Pulse Rate 96 H 10/13/18 17:55 Respiratory Rate 20 10/13/18 17:55 Blood Pressure 139/89 10/13/18 17:55 O2 Sat by Pulse Oximetry (%) 97 10/13/18 09:00 Constitutional: Yes: Anxious Eyes: Yes: EOM Intact HENT: Yes: Normocephalic Neck: Yes: Trachea Midline Cardiovascular: Yes: Regular Rate and Rhythm Respiratory: Yes: Rhonchi, SOB, Tachypnea, Wheezes Gastrointestinal: Yes: Abdomen, Obese, Hyperactive Bowel Sounds ...Rectal Exam: Yes: Deferred Renal/: Yes: WNL Musculoskeletal: Yes: Muscle Pain, Muscle Weakness Extremities: Yes: Delayed Capillary Refill Edema: No Integumentary: Yes: Onychomycosis, Venous Stasis Changes Neurological: Yes: Alert, Oriented, Weakness Psychiatric: Yes: Alert, Oriented Labs: CBC, BMP 10/12/18 05:30 10/12/18 05:30 Problem List - Problems (1) Acute on chronic respiratory failure with hypoxemia Code(s): J96.21 - ACUTE AND CHRONIC RESPIRATORY FAILURE WITH HYPOXIA (2) COPD (chronic obstructive pulmonary disease) Code(s): J44.9 - CHRONIC OBSTRUCTIVE PULMONARY DISEASE, UNSPECIFIED Qualifiers: COPD type: unspecified COPD Qualified Code(s): J44.9 - Chronic obstructive pulmonary disease, unspecified (3) Diabetes Code(s): E11.9 - TYPE 2 DIABETES MELLITUS WITHOUT COMPLICATIONS Qualifiers: Diabetes mellitus type: type 2 Diabetes mellitus termite helper insulin use: with half-way use Diabetes mellitus complication status: with unspecified complications Qualified Code(s): E11.8 - Type 2 diabetes mellitus with unspecified complications; Z79.4 - residential (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 of insulin (4) Abdominal pain Code(s): R10.9 - UNSPECIFIED ABDOMINAL PAIN (5) Abnormal liver enzymes Code(s): R74.8 - ABNORMAL LEVELS OF OTHER SERUM ENZYMES (6) Acute on chronic systolic (congestive) heart failure Code(s): I50.23 - ACUTE ON CHRONIC SYSTOLIC (CONGESTIVE) HEART FAILURE Assessment/Plan Current Active Problems Acute on chronic respiratory failure with hypoxemia (Acute) CHF exacerbation (Acute) COPD (chronic obstructive pulmonary disease) (Acute) Diabetes (Acute)diabetic neuropathy hyperglycemia HLD Laboratory Results - last 24 hr 10/12/18 10/12/18 10/13/18 22:12 22:14 06:10 POC Glucometer 494 489 432 10/13/18 12:21 POC Glucometer 215 Laboratory Tests 10/12/18 10/12/18 10/12/18 05:30 06:07 11:47 Sodium 141 Potassium 4.1 Chloride 107 Carbon Dioxide 29 Anion Gap 5 L BUN 29 H Creatinine 1.0 Creat Clearance w eGFR 57.15 POC Glucometer 95 355 10/12/18 10/12/18 17:10 22:12 Sodium Potassium Chloride Carbon Dioxide Anion Gap BUN Creatinine Creat Clearance w eGFR POC Glucometer 310 494 plan: bgm qid novolog insulin dose titrate for steroid levemir bid doses ck hba1c diet nicoderm patch. Laboratory Tests 09/23/18 07:30 Hemoglobin A1c % 9.0 H
[2018-10-13] MEDS: NICOTINE 7 MG/24 HOURS TOPICAL PATCH TD SCH (23:21)
[2018-10-13] MEDS: MONTELUKAST NA 10 MG TABLET PO SCH (23:21)
[2018-10-13] MEDS: INSULIN (LEVEMIR) 100 UNITS/ML UNITS SQ SCH (23:22)
[2018-10-14] MEDS: FUROSEMIDE 40 MG/4 ML INJECTABLE VIAL IVPUSH SCH ×2 (06:43→15:14)
[2018-10-14] MEDS: INSULIN (LEVEMIR) 100 UNITS/ML UNITS SQ SCH ×2 (06:43→21:46)
[2018-10-14] MEDS: INSULIN SLIDING SCALE (NOVOLOG) 1 VIAL SQ SCH ×4 (06:46→21:45)
[2018-10-14] MEDS: ALBUTEROL SO4 0.083% IH SOL 2.5 MG/3 ML VIAL.NEB. NEB SCH ×4 (07:30→20:28)
[2018-10-14] MEDS ORDERED: PT OWN MED DRAWER 7, Y5N ONE (09:57)
[2018-10-14] MEDS: AZITHROMYCIN 250 MG TABLET PO SCH (10:24)
[2018-10-14] MEDS: NICOTINE 7 MG/24 HOURS TOPICAL PATCH TD SCH (10:24)
[2018-10-14] MEDS: predniSONE 20 MG TABLET (UD) PO SCH ×2 (10:24→21:31)
[2018-10-14] MEDS: FLUCONAZOLE 100 MG TABLET (UD) PO SCH (10:24)
[2018-10-14] MEDS: PANTOPRAZOLE 20 MG TABLET (FP) PO SCH (10:25)
[2018-10-14] MEDS: HEPARIN NA (PORCINE) 5,000 UNITS/ML 1ML VIAL SQ SCH ×2 (10:25→21:32)
[2018-10-14] MEDS: SACUBITRIL/VALSARTAN 24 MG-26 MG TABLET PO SCH ×2 (10:25→21:31)
[2018-10-14] MEDS: CARVEDILOL 6.25 MG TABLET (FP) PO SCH ×2 (10:25→21:31)
[2018-10-14] MEDS: SPIRONOLACTONE 25 MG TABLET (FP) PO SCH (10:26)
--- NOTE | 2018-10-14 10:49 | PN ---
Progress Note, Physician Chief Complaint: AWAKE ALERT FEELING BETTER - Current Medication List Current Medications: Active Medications Albuterol Sulfate (Ventolin 0.083% Nebulizer Soln -) 1 amp NEB Q4H PRN PRN Reason: SHORT OF BREATH/WHEEZING Albuterol Sulfate (Ventolin 0.083% Nebulizer Soln -) 1 amp NEB RQID [facility] Last Admin: 10/14/18 07:30 Dose: 1 amp Azithromycin (Zithromax -) 500 mg PO DAILY [facility] Last Admin: 10/14/18 10:24 Dose: 500 mg Carvedilol (Coreg -) 6.25 mg PO BID [facility] Last Admin: 10/14/18 10:25 Dose: 6.25 mg Fluconazole (Diflucan -) 200 mg PO DAILY [facility] Last Admin: 10/14/18 10:24 Dose: 200 mg Furosemide (Lasix Injection -) 40 mg IVPUSH BIDLASIX [facility] Last Admin: 10/14/18 06:43 Dose: 40 mg Heparin Sodium (Porcine) (Heparin -) 5,000 unit SQ BID [facility] Last Admin: 10/14/18 10:25 Dose: 5,000 unit Insulin Aspart (Novolog Vial Sliding Scale -) 1 vial SQ [facility]; Protocol Last Admin: 10/14/18 06:46 Dose: 10 units Insulin Detemir (Levemir Vial) 25 units SQ HS [facility] Last Admin: 10/13/18 23:22 Dose: 25 units Insulin Detemir (Levemir Vial) 30 units SQ AM [facility] Last Admin: 10/14/18 06:43 Dose: 30 units Montelukast Sodium (Singulair -) 10 mg PO HS [facility] Last Admin: 10/13/18 23:21 Dose: 10 mg Nicotine (Nicoderm Patch -) 7 mg TD DAILY [facility] Last Admin: 10/14/18 10:24 Dose: 7 mg Pantoprazole Sodium (Protonix -) 20 mg PO DAILY [facility] Last Admin: 10/14/18 10:25 Dose: 20 mg Prednisone (Deltasone -) 40 mg PO BID [facility] Last Admin: 10/14/18 10:24 Dose: 40 mg Sacubitril/Valsartan (Entresto 24 Mg-26 Mg Tablet) 1 tab PO BID [facility] Last Admin: 10/14/18 10:25 Dose: 1 tab Spironolactone (Aldactone -) 25 mg PO DAILY [facility] Last Admin: 10/14/18 10:26 Dose: 25 mg Tiotropium [place] (Spiriva Respimat) 2 puff IH DAILY [facility] Last Admin: 10/13/18 09:45 Dose: 2 puff - Objective Vital Signs: Vital Signs Temperature 98 F 10/14/18 10:23 Pulse Rate 110 H 10/14/18 10:23 Respiratory Rate 22 H 10/14/18 10:23 Blood Pressure 133/84 10/14/18 10:23 O2 Sat by Pulse Oximetry (%) 97 10/13/18 21:00 Constitutional: Yes: No Distress Cardiovascular: Yes: Regular Rate and Rhythm Respiratory: Yes: Cough, Diminished Gastrointestinal: Yes: Soft Genitourinary: Yes: WNL Musculoskeletal: Yes: Muscle Weakness Integumentary: Yes: WNL Neurological: Yes: Pre-Existing Deficit Labs: CBC, BMP 10/12/18 05:30 10/12/18 05:30 INR, PTT INR 1.24 (0.83-1.09) H 10/11/18 20:41 Problem List - Problems (1) Acute on chronic respiratory failure with hypoxemia Code(s): J96.21 - ACUTE AND CHRONIC RESPIRATORY FAILURE WITH HYPOXIA (2) CHF exacerbation Code(s): I50.9 - HEART FAILURE, UNSPECIFIED Qualifiers: Heart failure type: unspecified Qualified Code(s): I50.9 - Heart failure, unspecified (3) COPD (chronic obstructive pulmonary disease) Code(s): J44.9 - CHRONIC OBSTRUCTIVE PULMONARY DISEASE, UNSPECIFIED Qualifiers: COPD type: unspecified COPD Qualified Code(s): J44.9 - Chronic obstructive pulmonary disease, unspecified (4) Diabetes Code(s): E11.9 - TYPE 2 DIABETES MELLITUS WITHOUT COMPLICATIONS Qualifiers: Diabetes mellitus type: type 2 Diabetes mellitus meterman insulin use: with meterman use Diabetes mellitus complication status: with unspecified complications Qualified Code(s): E11.8 - Type 2 diabetes mellitus with unspecified complications; Z79.4 - ferry terminal 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 (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 of insulin (5) Acute on chronic systolic (congestive) heart failure Code(s): I50.23 - ACUTE ON CHRONIC SYSTOLIC (CONGESTIVE) HEART FAILURE (6) Diabetes 1.5, managed as type 1 Code(s): E10.9 - TYPE 1 DIABETES MELLITUS WITHOUT COMPLICATIONS (7) HTN (hypertension) Code(s): I10 - ESSENTIAL (PRIMARY) HYPERTENSION Qualifiers: Hypertension type: essential hypertension Qualified Code(s): I10 - Essential (primary) hypertension (8) Non-compliance with treatment Code(s): Z91.19 - PATIENT'S NONCOMPLIANCE W OTH MEDICAL TREATMENT AND REGIMEN (9) Toxic metabolic encephalopathy Code(s): G92 - TOXIC ENCEPHALOPATHY (10) Uncontrolled diabetes mellitus Code(s): E11.65 - TYPE 2 DIABETES MELLITUS WITH HYPERGLYCEMIA Assessment/Plan PO AZITHROMYCIN NEBS OOB TO CHAIR WITH ASSIST ONLY DC ZUÑIGA PSYCH EVAL FOR NON-COMPLIANCE TO LIFESTYLE CHANGES AND DIETARY MODIFICATIONS AND MEDICAL FOLLOW UP. DC PLANNING SNF
--- NOTE | 2018-10-14 11:50 | PN ---
Progress Note (short form) - Note Progress Note: Awake and alert. Remains mildly tachypneic at rest. No CP. Some dry cough. Intake & Output 10/11/18 10/12/18 10/13/18 10/14/18 23:59 23:59 23:59 23:59 Intake Total 780 940 20 Output Total 200 1200 1400 Balance -200 -420 -460 20 Weight 200 lb 212 lb 2 oz 210 lb Last Vital Signs Temp Pulse Resp BP Pulse Ox 98 F 110 H 22 H 133/84 97 10/14/18 10:23 10/14/18 10:23 10/14/18 10:23 10/14/18 10:23 10/13/18 21:00 Active Medications Albuterol Sulfate (Ventolin 0.083% Nebulizer Soln -) 1 amp NEB Q4H PRN PRN Reason: SHORT OF BREATH/WHEEZING Albuterol Sulfate (Ventolin 0.083% Nebulizer Soln -) 1 amp NEB RQID [facility] Last Admin: 10/14/18 11:15 Dose: 1 amp Azithromycin (Zithromax -) 500 mg PO DAILY [facility] Last Admin: 10/14/18 10:24 Dose: 500 mg Carvedilol (Coreg -) 6.25 mg PO BID [facility] Last Admin: 10/14/18 10:25 Dose: 6.25 mg Fluconazole (Diflucan -) 200 mg PO DAILY [facility] Last Admin: 10/14/18 10:24 Dose: 200 mg Furosemide (Lasix Injection -) 40 mg IVPUSH BIDLASIX [facility] Last Admin: 10/14/18 06:43 Dose: 40 mg Heparin Sodium (Porcine) (Heparin -) 5,000 unit SQ BID [facility] Last Admin: 10/14/18 10:25 Dose: 5,000 unit Insulin Aspart (Novolog Vial Sliding Scale -) 1 vial SQ ACHS [facility]; Protocol Last Admin: 10/14/18 06:46 Dose: 10 units Insulin Detemir (Levemir Vial) 25 units SQ HS [facility] Last Admin: 10/13/18 23:22 Dose: 25 units Insulin Detemir (Levemir Vial) 30 units SQ AM [facility] Last Admin: 10/14/18 06:43 Dose: 30 units Montelukast Sodium (Singulair -) 10 mg PO HS [facility] Last Admin: 10/13/18 23:21 Dose: 10 mg Nicotine (Nicoderm Patch -) 7 mg TD DAILY [facility] Last Admin: 10/14/18 10:24 Dose: 7 mg Pantoprazole Sodium (Protonix -) 20 mg PO DAILY [facility] Last Admin: 10/14/18 10:25 Dose: 20 mg Prednisone (Deltasone -) 40 mg PO BID [facility] Last Admin: 10/14/18 10:24 Dose: 40 mg Sacubitril/Valsartan (Entresto 24 Mg-26 Mg Tablet) 1 tab PO BID [facility] Last Admin: 10/14/18 10:25 Dose: 1 tab Spironolactone (Aldactone -) 25 mg PO DAILY [facility] Last Admin: 10/14/18 10:26 Dose: 25 mg Tiotropium [place] (Spiriva Respimat) 2 puff IH DAILY [facility] Last Admin: 10/13/18 09:45 Dose: 2 puff Constitutional: Yes: Mildly tachypneic at rest Eyes: Yes: WNL HENT: Yes: WNL Neck: Yes: WNL Cardiovascular: Yes: Regular Rate and Rhythm Respiratory: Yes: Bilateral rales / rhonchi Gastrointestinal: Yes: WNL Musculoskeletal: Yes: Muscle Weakness Extremities: Yes: WNL Edema: Yes Peripheral Pulses WNL: Yes Integumentary: Yes: WNL Neurological: Yes: Non-focal ...Motor Strength: WNL Psychiatric: Yes: Other Labs: Laboratory Results - last 24 hr 10/13/18 10/13/18 10/14/18 12:21 23:20 06:43 POC Glucometer 215 535 308 Problem List - Problems (1) Acute on chronic respiratory failure with hypoxemia Code(s): J96.21 - ACUTE AND CHRONIC RESPIRATORY FAILURE WITH HYPOXIA (2) CHF exacerbation Code(s): I50.9 - HEART FAILURE, UNSPECIFIED Qualifiers: Heart failure type: unspecified Qualified Code(s): I50.9 - Heart failure, unspecified (3) COPD (chronic obstructive pulmonary disease) Code(s): J44.9 - CHRONIC OBSTRUCTIVE PULMONARY DISEASE, UNSPECIFIED Qualifiers: COPD type: unspecified COPD Qualified Code(s): J44.9 - Chronic obstructive pulmonary disease, unspecified (4) Diabetes Code(s): E11.9 - TYPE 2 DIABETES MELLITUS WITHOUT COMPLICATIONS Qualifiers: Diabetes mellitus type: type 2 Diabetes mellitus petroleum terminal plant operator insulin use: with petroleum terminal plant operator use Diabetes mellitus complication status: with unspecified complications Qualified Code(s): E11.8 - Type 2 diabetes mellitus with unspecified complications; Z79.4 - remote computer terminal operator (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 of insulin (5) Acute on chronic systolic (congestive) heart failure Code(s): I50.23 - ACUTE ON CHRONIC SYSTOLIC (CONGESTIVE) HEART FAILURE (6) COPD exacerbation Code(s): J44.1 - CHRONIC OBSTRUCTIVE PULMONARY DISEASE W (ACUTE) EXACERBATION (7) Cardiomyopathy Code(s): I42.9 - CARDIOMYOPATHY, UNSPECIFIED Qualifiers: Cardiomyopathy type: unspecified Qualified Code(s): I42.9 - Cardiomyopathy , unspecified (8) Controlled type 1 diabetes mellitus with peripheral vascular disease Code(s): E10.51 - TYPE 1 DIABETES W DIABETIC PERIPHERAL ANGIOPATH W/O GANGRENE (9) HTN (hypertension) Code(s): I10 - ESSENTIAL (PRIMARY) HYPERTENSION Qualifiers: Hypertension type: essential hypertension Qualified Code(s): I10 - Essential (primary) hypertension (10) Shortness of breath Code(s): R06.02 - SHORTNESS OF BREATH IMP ACUTE ON CHRONIC HYPOXEMIC RESPIRATORY FAILURE ACUTE ON CHRONIC CHF NON-ISCHEMIC CARDIOMYOPATHY COPD DO NOT SUSPECT PNEUMONIA PLAN IV LASIX O2 INHALED BRONCHODILATORS DAILY WT PREDNISONE DUONEB NOTED: CAUTION WITH CONCOMITANT LAMA SPIRIVA MONITOR LYTES STRICT I+Os MONITOR OFF ABX DR HICKMAN
[2018-10-14] MEDS: TIOTROPIUM BROMIDE 2.5 MCG (SPIRIVA) RESPIMAT INHALER IH SCH (12:42)
--- NOTE | 2018-10-14 14:33 | PN ---
Progress Note, Physician History of Present Illness: seen and examined today in nad. states she is feeling better. no new complaints. - Current Medication List Current Medications: Active Medications Albuterol Sulfate (Ventolin 0.083% Nebulizer Soln -) 1 amp NEB Q4H PRN PRN Reason: SHORT OF BREATH/WHEEZING Albuterol Sulfate (Ventolin 0.083% Nebulizer Soln -) 1 amp NEB RQID [facility] Last Admin: 10/14/18 11:15 Dose: 1 amp Azithromycin (Zithromax -) 500 mg PO DAILY [facility] Last Admin: 10/14/18 10:24 Dose: 500 mg Carvedilol (Coreg -) 6.25 mg PO BID [facility] Last Admin: 10/14/18 10:25 Dose: 6.25 mg Fluconazole (Diflucan -) 200 mg PO DAILY [facility] Last Admin: 10/14/18 10:24 Dose: 200 mg Furosemide (Lasix Injection -) 40 mg IVPUSH BIDLASIX [facility] Last Admin: 10/14/18 06:43 Dose: 40 mg Heparin Sodium (Porcine) (Heparin -) 5,000 unit SQ BID [facility] Last Admin: 10/14/18 10:25 Dose: 5,000 unit Insulin Aspart (Novolog Vial Sliding Scale -) 1 vial SQ [facility]; Protocol Last Admin: 10/14/18 12:43 Dose: 7 units Insulin Detemir (Levemir Vial) 25 units SQ HS [facility] Last Admin: 10/13/18 23:22 Dose: 25 units Insulin Detemir (Levemir Vial) 30 units SQ AM [facility] Last Admin: 10/14/18 06:43 Dose: 30 units Montelukast Sodium (Singulair -) 10 mg PO HS [facility] Last Admin: 10/13/18 23:21 Dose: 10 mg Nicotine (Nicoderm Patch -) 7 mg TD DAILY [facility] Last Admin: 10/14/18 10:24 Dose: 7 mg Pantoprazole Sodium (Protonix -) 20 mg PO DAILY [facility] Last Admin: 10/14/18 10:25 Dose: 20 mg Prednisone (Deltasone -) 40 mg PO BID [facility] Last Admin: 10/14/18 10:24 Dose: 40 mg Sacubitril/Valsartan (Entresto 24 Mg-26 Mg Tablet) 1 tab PO BID [facility] Last Admin: 10/14/18 10:25 Dose: 1 tab Spironolactone (Aldactone -) 25 mg PO DAILY [facility] Last Admin: 10/14/18 10:26 Dose: 25 mg Tiotropium [place] (Spiriva Respimat) 2 puff IH DAILY [facility] Last Admin: 10/14/18 12:42 Dose: 2 puff - Objective Vital Signs: Vital Signs Temperature 98.2 F 10/14/18 14:27 Pulse Rate 94 H 10/14/18 14:27 Respiratory Rate 10/14/18 14:27 Blood Pressure 137/84 10/14/18 14:27 O2 Sat by Pulse Oximetry (%) 97 10/13/18 21:00 Constitutional: Yes: No Distress, Calm Eyes: Yes: Conjunctiva Clear, EOM Intact HENT: Yes: Atraumatic, Normocephalic Neck: Yes: Supple, Trachea Midline Cardiovascular: Yes: Regular Rate and Rhythm, S1, S2. No: Bradycardia, Tachycardia, Pulse Irregular, Bruit, JVD, Gallop, Murmur, Rub, S3, S4, Varicosities Respiratory: Yes: Regular. No: Rales, Rhonchi, SOB, Wheezes Gastrointestinal: Yes: Normal Bowel Sounds, Soft. No: Distention, Tenderness Musculoskeletal: Yes: WNL Extremities: Yes: WNL Edema: No Peripheral Pulses WNL: Yes Neurological: Yes: Alert, Oriented Psychiatric: Yes: Alert, Oriented Labs: CBC, BMP 10/12/18 05:30 10/12/18 05:30 INR, PTT INR 1.24 (0.83-1.09) H 10/11/18 20:41 - ....Imaging Chest X-ray: Report Reviewed, Image Reviewed EKG: Report Reviewed, Image Reviewed Other: Report Reviewed, Image Reviewed (tele-no sig events) Assessment/Plan The patient is a 58-year-old obese female, with a history of diabetes, hypertension, hyperlipidemia, COPD/asthma, nonischemic cardiomyopathy with severe chronic systolic dysfunction, normal coronary arteries 10/28, now admitted with shortness of breath and chest pain, found with worsening CHF on CXR and increasing pro bnp. Known EF 15-20% by echo from 04/2018 1. chest pain- -normal coronaries by cath 2016. no testing is needed. 2. Acute on chronic systolic CHF -echo severe global LV systolic dysfunction, mod mr/tr, mild to mod pah -transition to po Lasix today or tomorrow -check labs -strict I/Os and daily weights -monitor bun/creat, electrolytes and replete as needed -keep O>I -2 liter fluid restrict, 2gm NA diet. -cont entresto, coreg, aldactone -daily weights -lung rx per pulmonary. close outpatient fup
[2018-10-14 16:05] VITALS: BMI 37.2
[2018-10-14] MEDS: MONTELUKAST NA 10 MG TABLET PO SCH (21:32)
[2018-10-15] MEDS: INSULIN (LEVEMIR) 100 UNITS/ML UNITS SQ SCH ×2 (06:37→23:02)
[2018-10-15] MEDS: FUROSEMIDE 40 MG/4 ML INJECTABLE VIAL IVPUSH SCH ×2 (06:37→14:51)
[2018-10-15] MEDS: INSULIN SLIDING SCALE (NOVOLOG) 1 VIAL SQ SCH ×4 (06:37→22:56)
[2018-10-15 06:55] LABS: HEMATOCRIT 45.8 % (32.4-45.2); HEMOGLOBIN 14.7 GM/dL (10.7-15.3); MCH 29.9 pg (25.7-33.7); MCHC 32.1 g/dl (32.0-36.0); MEAN CELL VOLUME 93.2 fl (80-96); MEAN PLT VOLUME 8.1 fl (7.5-11.1); PLATELET COUNT 259 K/MM3 (134-434); RBC 4.92 M/mm3 (3.60-5.2); RDW 17.6 % (11.6-15.6); WHITE BLOOD COUNT 8.2 K/mm3 (4.0-10.0)
[2018-10-15 07:26] LABS: ANION GAP 7 MMOL/L (8-16); BLOOD UREA NITROGEN 35 mg/dL (7-18); CALCIUM 8.3 mg/dL (8.5-10.1); CHLORIDE 99 mmol/L (98-107); CO2 29 mmol/L (21-32); CREATININE 1.1 mg/dL (0.55-1.3); POTASSIUM 4.8 mmol/L (3.5-5.1); SODIUM 135 mmol/L (136-145)
[2018-10-15 07:31] LABS: GLUCOSE,RANDOM 382 mg/dL (74-106)
[2018-10-15] MEDS: ALBUTEROL SO4 0.083% IH SOL 2.5 MG/3 ML VIAL.NEB. NEB SCH ×4 (07:37→20:53)
[2018-10-15] MEDS ORDERED: PT OWN MED DRAWER 7, Y5N ONE ×2 (09:38→17:12)
[2018-10-15] MEDS: PANTOPRAZOLE 20 MG TABLET (FP) PO SCH (10:27)
[2018-10-15] MEDS: SPIRONOLACTONE 25 MG TABLET (FP) PO SCH (10:27)
[2018-10-15] MEDS: predniSONE 20 MG TABLET (UD) PO SCH ×2 (10:27→23:02)
[2018-10-15] MEDS: CARVEDILOL 6.25 MG TABLET (FP) PO SCH ×2 (10:27→23:02)
[2018-10-15] MEDS: NICOTINE 7 MG/24 HOURS TOPICAL PATCH TD SCH (10:27)
[2018-10-15] MEDS: FLUCONAZOLE 100 MG TABLET (UD) PO SCH (10:28)
[2018-10-15] MEDS: HEPARIN NA (PORCINE) 5,000 UNITS/ML 1ML VIAL SQ SCH ×2 (10:28→23:01)
[2018-10-15] MEDS: SACUBITRIL/VALSARTAN 24 MG-26 MG TABLET PO SCH ×2 (10:29→22:58)
[2018-10-15] MEDS: TIOTROPIUM BROMIDE 2.5 MCG (SPIRIVA) RESPIMAT INHALER IH SCH (10:32)
--- NOTE | 2018-10-15 11:47 | PN ---
Progress Note, Physician History of Present Illness: PULMONARY ALERT,LESS DYSPNEIC ON NASAL CANNULA - Current Medication List Current Medications: Active Medications Albuterol Sulfate (Ventolin 0.083% Nebulizer Soln -) 1 amp NEB Q4H PRN PRN Reason: SHORT OF BREATH/WHEEZING Albuterol Sulfate (Ventolin 0.083% Nebulizer Soln -) 1 amp NEB RQID [facility] Last Admin: 10/15/18 11:02 Dose: 1 amp Carvedilol (Coreg -) 6.25 mg PO BID [facility] Last Admin: 10/15/18 10:27 Dose: 6.25 mg Fluconazole (Diflucan -) 200 mg PO DAILY [facility] Last Admin: 10/15/18 10:28 Dose: 200 mg Furosemide (Lasix Injection -) 40 mg IVPUSH BIDLASIX [facility] Last Admin: 10/15/18 06:37 Dose: 40 mg Heparin Sodium (Porcine) (Heparin -) 5,000 unit SQ BID [facility] Last Admin: 10/15/18 10:28 Dose: 5,000 unit Insulin Aspart (Novolog Vial Sliding Scale -) 1 vial SQ [facility]; Protocol Last Admin: 10/15/18 06:37 Dose: 12 units Insulin Detemir (Levemir Vial) 25 units SQ HS [facility] Last Admin: 10/14/18 21:46 Dose: 25 units Insulin Detemir (Levemir Vial) 30 units SQ AM [facility] Last Admin: 10/15/18 06:37 Dose: 30 units Montelukast Sodium (Singulair -) 10 mg PO HS [facility] Last Admin: 10/14/18 21:32 Dose: 10 mg Nicotine (Nicoderm Patch -) 7 mg TD DAILY [facility] Last Admin: 10/15/18 10:27 Dose: 7 mg Pantoprazole Sodium (Protonix -) 20 mg PO DAILY [facility] Last Admin: 10/15/18 10:27 Dose: 20 mg Prednisone (Deltasone -) 40 mg PO BID [facility] Last Admin: 10/15/18 10:27 Dose: 40 mg Sacubitril/Valsartan (Entresto 24 Mg-26 Mg Tablet) 1 tab PO BID [facility] Last Admin: 10/15/18 10:29 Dose: 1 tab Spironolactone (Aldactone -) 25 mg PO DAILY [facility] Last Admin: 10/15/18 10:27 Dose: 25 mg Tiotropium [place] (Spiriva Respimat) 2 puff IH DAILY [facility] Last Admin: 10/15/18 10:32 Dose: 2 puff - Objective Vital Signs: Vital Signs Temperature 98 F 10/15/18 10:00 Pulse Rate 88 10/15/18 10:00 Respiratory Rate 20 10/15/18 10:00 Blood Pressure 138/98 10/15/18 10:00 O2 Sat by Pulse Oximetry (%) 96 10/14/18 21:00 Constitutional: Yes: Well Nourished, Calm Eyes: Yes: WNL HENT: Yes: WNL Neck: Yes: WNL Cardiovascular: Yes: Regular Rate and Rhythm, S1, S2 Respiratory: Yes: Rales (BILATERAL RALES,WITH FEW SCATTERED WHEEZES) Gastrointestinal: Yes: Normal Bowel Sounds Extremities: Yes: WNL Edema: Yes Labs: CBC, BMP 10/15/18 05:30 10/15/18 05:30 INR, PTT INR 1.24 (0.83-1.09) H 10/11/18 20:41 Problem List - Problems (1) Acute on chronic respiratory failure with hypoxemia Code(s): J96.21 - ACUTE AND CHRONIC RESPIRATORY FAILURE WITH HYPOXIA (2) CHF exacerbation Code(s): I50.9 - HEART FAILURE, UNSPECIFIED Qualifiers: Heart failure type: unspecified Qualified Code(s): I50.9 - Heart failure, unspecified (3) COPD (chronic obstructive pulmonary disease) Code(s): J44.9 - CHRONIC OBSTRUCTIVE PULMONARY DISEASE, UNSPECIFIED Qualifiers: COPD type: unspecified COPD Qualified Code(s): J44.9 - Chronic obstructive pulmonary disease, unspecified (4) Diabetes Code(s): E11.9 - TYPE 2 DIABETES MELLITUS WITHOUT COMPLICATIONS Qualifiers: Diabetes mellitus type: type 2 Diabetes mellitus rat 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 insulin use: with skilled nursing use Diabetes mellitus complication status: with unspecified complications Qualified Code(s): E11.8 - Type 2 diabetes mellitus with unspecified complications; Z79.4 - prison (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 of insulin (5) Acute on chronic systolic (congestive) heart failure Code(s): I50.23 - ACUTE ON CHRONIC SYSTOLIC (CONGESTIVE) HEART FAILURE (6) COPD exacerbation Code(s): J44.1 - CHRONIC OBSTRUCTIVE PULMONARY DISEASE W (ACUTE) EXACERBATION (7) Cardiomyopathy Code(s): I42.9 - CARDIOMYOPATHY, UNSPECIFIED Qualifiers: Cardiomyopathy type: unspecified Qualified Code(s): I42.9 - Cardiomyopathy , unspecified (8) Controlled type 1 diabetes mellitus with peripheral vascular disease Code(s): E10.51 - TYPE 1 DIABETES W DIABETIC PERIPHERAL ANGIOPATH W/O GANGRENE (9) HTN (hypertension) Code(s): I10 - ESSENTIAL (PRIMARY) HYPERTENSION Qualifiers: Hypertension type: essential hypertension Qualified Code(s): I10 - Essential (primary) hypertension (10) Shortness of breath Code(s): R06.02 - SHORTNESS OF BREATH Assessment/Plan IMP ACUTE ON CHRONIC HYPOXEMIC RESPIRATORY FAILURE ACUTE ON CHRONIC CHF NON-ISCHEMIC CARDIOMYOPATHY COPD ? PNEUMONIA PLAN CONTINUE IV LASIX O2 INHALED BRONCHODILATORS DAILY WT F/U CHESTS X-RAYS MONITOR LYTES STRICT I+Os DR LOMELI Problem List - Problems (1) Acute on chronic respiratory failure with hypoxemia Code(s): J96.21 - ACUTE AND CHRONIC RESPIRATORY FAILURE WITH HYPOXIA (2) CHF exacerbation Code(s): I50.9 - HEART FAILURE, UNSPECIFIED Qualifiers: Heart failure type: unspecified Qualified Code(s): I50.9 - Heart failure, unspecified (3) COPD (chronic obstructive pulmonary disease) Code(s): J44.9 - CHRONIC OBSTRUCTIVE PULMONARY DISEASE, UNSPECIFIED Qualifiers: COPD type: unspecified COPD Qualified Code(s): J44.9 - Chronic obstructive pulmonary disease, unspecified (4) Diabetes Code(s): E11.9 - TYPE 2 DIABETES MELLITUS WITHOUT COMPLICATIONS Qualifiers: Diabetes mellitus type: type 2 Diabetes mellitus rat 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 insulin use: with rat 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 use Diabetes mellitus complication status: with unspecified complications Qualified Code(s): E11.8 - Type 2 diabetes mellitus with unspecified complications; Z79.4 - rat 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 (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 of insulin (5) Acute on chronic systolic (congestive) heart failure Code(s): I50.23 - ACUTE ON CHRONIC SYSTOLIC (CONGESTIVE) HEART FAILURE (6) COPD exacerbation Code(s): J44.1 - CHRONIC OBSTRUCTIVE PULMONARY DISEASE W (ACUTE) EXACERBATION (7) Cardiomyopathy Code(s): I42.9 - CARDIOMYOPATHY, UNSPECIFIED Qualifiers: Cardiomyopathy type: unspecified Qualified Code(s): I42.9 - Cardiomyopathy , unspecified (8) Controlled type 1 diabetes mellitus with peripheral vascular disease Code(s): E10.51 - TYPE 1 DIABETES W DIABETIC PERIPHERAL ANGIOPATH W/O GANGRENE (9) HTN (hypertension) Code(s): I10 - ESSENTIAL (PRIMARY) HYPERTENSION Qualifiers: Hypertension type: essential hypertension Qualified Code(s): I10 - Essential (primary) hypertension (10) Shortness of breath Code(s): R06.02 - SHORTNESS OF BREATH
--- NOTE | 2018-10-15 15:18 | PN ---
Progress Note, Physician Chief Complaint: Comfortable presently History of Present Illness: The patient is a 58-year-old obese female, with a history of diabetes, hypertension, hyperlipidemia, COPD/asthma, nonischemic cardiomyopathy with severe chronic systolic dysfunction, normal coronary arteries 10/28, now admitted with shortness of breath and chest pain, found with worsening CHF on CXR and increasing pro bnp. Known EF 15-20% by echo from 04/201810/15/18 No distress Still coughing and has rhonchi - Current Medication List Current Medications: Active Medications Albuterol Sulfate (Ventolin 0.083% Nebulizer Soln -) 1 amp NEB Q4H PRN PRN Reason: SHORT OF BREATH/WHEEZING Albuterol Sulfate (Ventolin 0.083% Nebulizer Soln -) 1 amp NEB RQID [facility] Last Admin: 10/15/18 11:02 Dose: 1 amp Carvedilol (Coreg -) 6.25 mg PO BID [facility] Last Admin: 10/15/18 10:27 Dose: 6.25 mg Fluconazole (Diflucan -) 200 mg PO DAILY [facility] Last Admin: 10/15/18 10:28 Dose: 200 mg Furosemide (Lasix Injection -) 40 mg IVPUSH BIDLASIX [facility] Last Admin: 10/15/18 14:51 Dose: 40 mg Heparin Sodium (Porcine) (Heparin -) 5,000 unit SQ BID [facility] Last Admin: 10/15/18 10:28 Dose: 5,000 unit Insulin Aspart (Novolog Vial Sliding Scale -) 1 vial SQ [facility]; Protocol Last Admin: 10/15/18 12:26 Dose: 9 units Insulin Detemir (Levemir Vial) 25 units SQ HS [facility] Last Admin: 10/14/18 21:46 Dose: 25 units Insulin Detemir (Levemir Vial) 30 units SQ AM [facility] Last Admin: 10/15/18 06:37 Dose: 30 units Montelukast Sodium (Singulair -) 10 mg PO HS [facility] Last Admin: 10/14/18 21:32 Dose: 10 mg Nicotine (Nicoderm Patch -) 7 mg TD DAILY [facility] Last Admin: 10/15/18 10:27 Dose: 7 mg Pantoprazole Sodium (Protonix -) 20 mg PO DAILY [facility] Last Admin: 10/15/18 10:27 Dose: 20 mg Prednisone (Deltasone -) 40 mg PO BID [facility] Last Admin: 10/15/18 10:27 Dose: 40 mg Sacubitril/Valsartan (Entresto 24 Mg-26 Mg Tablet) 1 tab PO BID [facility] Last Admin: 10/15/18 10:29 Dose: 1 tab Spironolactone (Aldactone -) 25 mg PO DAILY [facility] Last Admin: 10/15/18 10:27 Dose: 25 mg Tiotropium [place] (Spiriva Respimat) 2 puff IH DAILY [facility] Last Admin: 10/15/18 10:32 Dose: 2 puff - Objective Vital Signs: Vital Signs Temperature 98 F 10/15/18 10:00 Pulse Rate 88 10/15/18 10:00 Respiratory Rate 20 10/15/18 10:00 Blood Pressure 138/98 10/15/18 10:00 O2 Sat by Pulse Oximetry (%) 96 10/14/18 21:00 Constitutional: Yes: No Distress HENT: Yes: WNL Cardiovascular: Yes: Regular Rate and Rhythm (NL S1S2, no MRHG) Respiratory: Yes: Rhonchi (Bilateral, scattered) Gastrointestinal: Yes: Soft Edema: No Neurological: Yes: Alert, Oriented Labs: CBC, BMP 10/15/18 05:30 10/15/18 05:30 INR, PTT INR 1.24 (0.83-1.09) H 10/11/18 20:41 Assessment/Plan The patient is a 58-year-old obese female, with a history of diabetes, hypertension, hyperlipidemia, COPD/asthma, nonischemic cardiomyopathy with severe chronic systolic dysfunction, normal coronary arteries 10/28, now admitted with shortness of breath and chest pain, found with worsening CHF on CXR and increasing pro bnp. Known EF 15-20% by echo from 04/2018 1. chest pain- -normal coronaries by cath 2017. no testing is needed. 2. Acute on chronic systolic CHF Low EF noted on Echo Would continue IV Lasix x 24 more hours I's/O's/Wt's/Lytes daily 2 liter fluid restrict, 2gm NA diet cont entresto, coreg, aldactone
--- NOTE | 2018-10-15 17:04 | PN ---
Progress Note, Physician Chief Complaint: Acute on Chronic CHF SOB Chest pain History of Present Illness: Previous notes and event reviewed awake and alert NAD complain of constipation denies chest pain, SOB - Current Medication List Current Medications: Active Medications Albuterol Sulfate (Ventolin 0.083% Nebulizer Soln -) 1 amp NEB Q4H PRN PRN Reason: SHORT OF BREATH/WHEEZING Albuterol Sulfate (Ventolin 0.083% Nebulizer Soln -) 1 amp NEB RQID [facility] Last Admin: 10/15/18 15:44 Dose: 1 amp Carvedilol (Coreg -) 6.25 mg PO BID [facility] Last Admin: 10/15/18 10:27 Dose: 6.25 mg Fluconazole (Diflucan -) 200 mg PO DAILY [facility] Last Admin: 10/15/18 10:28 Dose: 200 mg Furosemide (Lasix Injection -) 40 mg IVPUSH BIDLASIX [facility] Last Admin: 10/15/18 14:51 Dose: 40 mg Heparin Sodium (Porcine) (Heparin -) 5,000 unit SQ BID [facility] Last Admin: 10/15/18 10:28 Dose: 5,000 unit Insulin Aspart (Novolog Vial Sliding Scale -) 1 vial SQ [facility]; Protocol Last Admin: 10/15/18 12:26 Dose: 9 units Insulin Detemir (Levemir Vial) 25 units SQ HS [facility] Last Admin: 10/14/18 21:46 Dose: 25 units Insulin Detemir (Levemir Vial) 30 units SQ AM [facility] Last Admin: 10/15/18 06:37 Dose: 30 units Montelukast Sodium (Singulair -) 10 mg PO HS [facility] Last Admin: 10/14/18 21:32 Dose: 10 mg Nicotine (Nicoderm Patch -) 7 mg TD DAILY [facility] Last Admin: 10/15/18 10:27 Dose: 7 mg Pantoprazole Sodium (Protonix -) 20 mg PO DAILY [facility] Last Admin: 10/15/18 10:27 Dose: 20 mg Prednisone (Deltasone -) 40 mg PO BID [facility] Last Admin: 10/15/18 10:27 Dose: 40 mg Sacubitril/Valsartan (Entresto 24 Mg-26 Mg Tablet) 1 tab PO BID [facility] Last Admin: 10/15/18 10:29 Dose: 1 tab Spironolactone (Aldactone -) 25 mg PO DAILY [facility] Last Admin: 10/15/18 10:27 Dose: 25 mg Tiotropium [place] (Spiriva Respimat) 2 puff IH DAILY [facility] Last Admin: 10/15/18 10:32 Dose: 2 puff - Objective Vital Signs: Vital Signs Temperature 97.8 F 10/15/18 16:30 Pulse Rate 86 10/15/18 16:30 Respiratory Rate 20 10/15/18 16:30 Blood Pressure 140/86 10/15/18 16:30 O2 Sat by Pulse Oximetry (%) 98 10/15/18 09:00 Constitutional: Yes: Well Nourished, No Distress, Calm Eyes: Yes: Conjunctiva Clear HENT: Yes: Atraumatic Cardiovascular: Yes: Regular Rate and Rhythm Respiratory: Yes: Rhonchi Gastrointestinal: Yes: Normal Bowel Sounds, Soft, Abdomen, Obese Musculoskeletal: Yes: WNL Extremities: Yes: WNL Edema: No Neurological: Yes: Alert, Oriented Psychiatric: Yes: Alert, Oriented Labs: CBC, BMP 10/15/18 05:30 10/15/18 05:30 INR, PTT INR 1.24 (0.83-1.09) H 10/11/18 20:41 Microbiology 10/12/18 02:30 Urine - Urine Clean Catch Urine Culture - Final NO GROWTH OBTAINED Problem List - Problems (1) COPD (chronic obstructive pulmonary disease) Assessment/Plan: -pulmonary on board -bronchodilators -O2 via [place] PRN for SOB -singulair po -prednisone po daily -Spiriva Code(s): J44.9 - CHRONIC OBSTRUCTIVE PULMONARY DISEASE, UNSPECIFIED Qualifiers: COPD type: unspecified COPD Qualified Code(s): J44.9 - Chronic obstructive pulmonary disease, unspecified (2) Diabetes Assessment/Plan: -BG ACHS -diabetic diet -Levemir, ISS Code(s): E11.9 - TYPE 2 DIABETES MELLITUS WITHOUT COMPLICATIONS Qualifiers: Diabetes mellitus type: type 2 Diabetes mellitus nursing home insulin use: with marine oil terminal 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 Diabetes mellitus complication status: with unspecified complications Qualified Code(s): E11.8 - Type 2 diabetes mellitus with unspecified complications; Z79.4 - half-way (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 of insulin (3) Acute on chronic systolic (congestive) heart failure Assessment/Plan: -cardiology on board -Lasix IVP BID -O2 via [place] PRN for SOB -continue with [place] coreg, aldactone -continue tele monitoring Code(s): I50.23 - ACUTE ON CHRONIC SYSTOLIC (CONGESTIVE) HEART FAILURE (4) HTN (hypertension) Assessment/Plan: -continue with coreg, aldactone -low Na diet Code(s): I10 - ESSENTIAL (PRIMARY) HYPERTENSION Qualifiers: Hypertension type: essential hypertension Qualified Code(s): I10 - Essential (primary) hypertension (5) Constipation Assessment/Plan: -miralax daily Code(s): K59.00 - CONSTIPATION, UNSPECIFIED (6) Abnormal liver enzymes Assessment/Plan: -Alk phos elev 173 -will continue to trend Code(s): R74.8 - ABNORMAL LEVELS OF OTHER SERUM ENZYMES Assessment/Plan see problem list dvt ppx
--- NOTE | 2018-10-15 19:01 | DS ---
Physical Examination Vital Signs: Vital Signs Temperature 97.8 F 10/15/18 16:30 Pulse Rate 86 10/15/18 16:30 Respiratory Rate 20 10/15/18 16:30 Blood Pressure 140/86 10/15/18 16:30 O2 Sat by Pulse Oximetry (%) 98 10/15/18 09:00 Findings/Remarks: Patient is a 58 y/o female with past medical history of COPD, CHF, IDDM, HTN, HLD. Patient presented to ER with complaints of worsening SOB with productive cough x 3 days. CXR on admission showed progressive congestive changes with some basilar infiltrates and/or atelectasis with fluid, findings more prevalent on left than right. Evaluated by pulmonary and cardiology while inpatient. Since admission patient was started on IV methylprednisone, IV lasix, bronchodilators. Patient continues to have cough but states SOB has subsided. Repeat CXR shows congestive changes have diminished. Patient will be discharged to SNF. Constitutional: Yes: No Distress, Calm, Obese Eyes: Yes: Conjunctiva Clear HENT: Yes: Atraumatic Cardiovascular: Yes: Regular Rate and Rhythm Respiratory: Yes: Rhonchi (B/L) Gastrointestinal: Yes: Normal Bowel Sounds, Soft, Abdomen, Obese Musculoskeletal: Yes: Muscle Weakness Extremities: Yes: WNL Edema: No Neurological: Yes: Alert, Oriented Psychiatric: Yes: Alert, Oriented Labs: CBC, BMP 10/15/18 05:30 10/15/18 05:30 Discharge Summary Reason For Visit: ACUTE ON CHRONIC CONGESTIVE HEART FAILURE HYPOGLYC Current Active Problems Acute on chronic respiratory failure with hypoxemia (Acute) CHF exacerbation (Acute) COPD (chronic obstructive pulmonary disease) (Acute) Diabetes (Acute) Procedures: Principal: CXR Hospital Course: see progress notes Laboratory Tests 10/11/18 10/11/18 10/11/18 20:19 20:41 20:41 WBC 8.7 RBC 5.03 Hgb 15.6 H Hct 46.2 H MCV 91.8 MCH 31.0 MCHC 33.8 RDW 17.1 H Plt Count 237 D MPV 8.0 Absolute Neuts (auto) 7.0 Neutrophils % 81.3 Lymphocytes % 11.5 D Monocytes % 6.4 Eosinophils % 0.4 D Basophils % 0.4 Nucleated RBC % 0 PT with INR 14.70 H INR 1.24 H Anticoagulation Therapy Puncture Site ABG pH ABG pCO2 at Pt Temp ABG pO2 at Pt Temp ABG HCO3 ABG O2 Sat (Measured) ABG O2 Content ABG Base Excess Bharathi Test Carboxyhemoglobin Methemoglobin O2 Delivery Device Oxygen Flow Rate Vent Mode Vent Rate Mechanical Rate Pressure Support Vent Sodium Potassium Chloride Carbon Dioxide Anion Gap BUN Creatinine Creat Clearance w eGFR POC Glucometer Random Glucose Calcium Total Bilirubin AST ALT Alkaline Phosphatase Creatine Kinase Troponin I B-Natriuretic Peptide Total Protein Albumin Urine Color Urine Appearance Urine pH Ur Specific [place] Urine Protein Urine Glucose (UA) Urine Ketones Urine Blood Urine Nitrite Urine Bilirubin Urine Urobilinogen Ur Leukocyte Esterase Urine WBC (Auto) Urine RBC (Auto) Urine Bacteria Hyaline Casts Urine Mucus Influenza A (Rapid) Negative Influenza B (Rapid) Negative 10/11/18 10/11/18 10/11/18 20:41 20:58 21:30 WBC RBC Hgb Hct MCV MCH MCHC RDW Plt Count MPV Absolute Neuts (auto) Neutrophils % Lymphocytes % Monocytes % Eosinophils % Basophils % Nucleated RBC % PT with INR INR Anticoagulation Therapy No Result Required. Puncture Site No Result Required. ABG pH 7.39 ABG pCO2 at Pt Temp 43.6 D ABG pO2 at Pt Temp 127.0 H D ABG HCO3 25.6 ABG O2 Sat (Measured) 98.4 ABG O2 Content 20.7 ABG Base Excess 0.8 Bharathi Test No Result Required. Carboxyhemoglobin 1.0 Methemoglobin 0.4 O2 Delivery Device No Result Required. Oxygen Flow Rate No Result Required. Vent Mode No Result Required. Vent Rate No Result Required. Mechanical Rate No Result Required. Pressure Support Vent No Result Required. Sodium 140 Potassium 4.2 Chloride 107 Carbon Dioxide 26 Anion Gap 7 L BUN 28 H Creatinine 0.8 Creat Clearance w eGFR > 60 POC Glucometer 52 Random Glucose 57 L Calcium 7.8 L Total Bilirubin 0.9 AST 29 ALT 40 Alkaline Phosphatase 173 H Creatine Kinase 86 Troponin I 0.04 B-Natriuretic Peptide 5511.9 H Total Protein 6.2 L Albumin 2.8 L Urine Color Urine Appearance Urine pH Ur Specific [place] Urine Protein Urine Glucose (UA) Urine Ketones Urine Blood Urine Nitrite Urine Bilirubin Urine Urobilinogen Ur Leukocyte Esterase Urine WBC (Auto) Urine RBC (Auto) Urine Bacteria Hyaline Casts Urine Mucus Influenza A (Rapid) Influenza B (Rapid) 10/11/18 10/12/18 10/12/18 22:22 01:22 02:30 WBC RBC Hgb Hct MCV MCH MCHC RDW Plt Count MPV Absolute Neuts (auto) Neutrophils % Lymphocytes % Monocytes % Eosinophils % Basophils % Nucleated RBC % PT with INR INR Anticoagulation Therapy Puncture Site ABG pH ABG pCO2 at Pt Temp ABG pO2 at Pt Temp ABG HCO3 ABG O2 Sat (Measured) ABG O2 Content ABG Base Excess Bharathi Test Carboxyhemoglobin Methemoglobin O2 Delivery Device Oxygen Flow Rate Vent Mode Vent Rate Mechanical Rate Pressure Support Vent Sodium Potassium Chloride Carbon Dioxide Anion Gap BUN Creatinine Creat Clearance w eGFR POC Glucometer 64 144 Random Glucose Calcium Total Bilirubin AST ALT Alkaline Phosphatase Creatine Kinase Troponin I B-Natriuretic Peptide Total Protein Albumin Urine Color Yellow Urine Appearance Clear Urine pH 5.0 Ur Specific [place] 1.011 Urine Protein 2+ H Urine Glucose (UA) Negative Urine Ketones Negative Urine Blood 1+ H Urine Nitrite Negative Urine Bilirubin Negative Urine Urobilinogen Negative Ur Leukocyte Esterase Negative Urine WBC (Auto) None Urine RBC (Auto) <1 Urine Bacteria Rare Hyaline Casts 3 Urine Mucus Rare Influenza A (Rapid) Influenza B (Rapid) 10/12/18 10/12/18 10/12/18 04:30 05:30 05:30 WBC 9.0 RBC 4.79 Hgb 14.7 Hct 44.0 MCV 91.7 MCH 30.8 MCHC 33.5 RDW 17.3 H Plt Count 228 MPV 8.1 Absolute Neuts (auto) Neutrophils % Lymphocytes % Monocytes % Eosinophils % Basophils % Nucleated RBC % PT with INR INR Anticoagulation Therapy Puncture Site ABG pH ABG pCO2 at Pt Temp ABG pO2 at Pt Temp ABG HCO3 ABG O2 Sat (Measured) ABG O2 Content ABG Base Excess Bharathi Test Carboxyhemoglobin Methemoglobin O2 Delivery Device Oxygen Flow Rate Vent Mode Vent Rate Mechanical Rate Pressure Support Vent Sodium 141 Potassium 4.1 Chloride 107 Carbon Dioxide 29 Anion Gap 5 L BUN 29 H Creatinine 1.0 Creat Clearance w eGFR 57.15 POC Glucometer Random Glucose 98 Calcium 8.1 L Total Bilirubin AST ALT Alkaline Phosphatase Creatine Kinase 50 53 Troponin I 0.05 0.05 B-Natriuretic Peptide Total Protein Albumin Urine Color Urine Appearance Urine pH Ur Specific [place] Urine Protein Urine Glucose (UA) Urine Ketones Urine Blood Urine Nitrite Urine Bilirubin Urine Urobilinogen Ur Leukocyte Esterase Urine WBC (Auto) Urine RBC (Auto) Urine Bacteria Hyaline Casts Urine Mucus Influenza A (Rapid) Influenza B (Rapid) 10/12/18 10/12/18 10/12/18 06:07 11:47 17:10 WBC RBC Hgb Hct MCV MCH MCHC RDW Plt Count MPV Absolute Neuts (auto) Neutrophils % Lymphocytes % Monocytes % Eosinophils % Basophils % Nucleated RBC % PT with INR INR Anticoagulation Therapy Puncture Site ABG pH ABG pCO2 at Pt Temp ABG pO2 at Pt Temp ABG HCO3 ABG O2 Sat (Measured) ABG O2 Content ABG Base Excess Bharathi Test Carboxyhemoglobin Methemoglobin O2 Delivery Device Oxygen Flow Rate Vent Mode Vent Rate Mechanical Rate Pressure Support Vent Sodium Potassium Chloride Carbon Dioxide Anion Gap BUN Creatinine Creat Clearance w eGFR POC Glucometer 95 355 310 Random Glucose Calcium Total Bilirubin AST ALT Alkaline Phosphatase Creatine Kinase Troponin I B-Natriuretic Peptide Total Protein Albumin Urine Color Urine Appearance Urine pH Ur Specific [place] Urine Protein Urine Glucose (UA) Urine Ketones Urine Blood Urine Nitrite Urine Bilirubin Urine Urobilinogen Ur Leukocyte Esterase Urine WBC (Auto) Urine RBC (Auto) Urine Bacteria Hyaline Casts Urine Mucus Influenza A (Rapid) Influenza B (Rapid) 10/12/18 10/12/18 10/13/18 22:12 22:14 06:10 WBC RBC Hgb Hct MCV MCH MCHC RDW Plt Count MPV Absolute Neuts (auto) Neutrophils % Lymphocytes % Monocytes % Eosinophils % Basophils % Nucleated RBC % PT with INR INR Anticoagulation Therapy Puncture Site ABG pH ABG pCO2 at Pt Temp ABG pO2 at Pt Temp ABG HCO3 ABG O2 Sat (Measured) ABG O2 Content ABG Base Excess Bharathi Test Carboxyhemoglobin Methemoglobin O2 Delivery Device Oxygen Flow Rate Vent Mode Vent Rate Mechanical Rate Pressure Support Vent Sodium Potassium Chloride Carbon Dioxide Anion Gap BUN Creatinine Creat Clearance w eGFR POC Glucometer 494 489 432 Random Glucose Calcium Total Bilirubin AST ALT Alkaline Phosphatase Creatine Kinase Troponin I B-Natriuretic Peptide Total Protein Albumin Urine Color Urine Appearance Urine pH Ur Specific [place] Urine Protein Urine Glucose (UA) Urine Ketones Urine Blood Urine Nitrite Urine Bilirubin Urine Urobilinogen Ur Leukocyte Esterase Urine WBC (Auto) Urine RBC (Auto) Urine Bacteria Hyaline Casts Urine Mucus Influenza A (Rapid) Influenza B (Rapid) 10/13/18 10/13/18 10/13/18 12:21 17:53 23:20 WBC RBC Hgb Hct MCV MCH MCHC RDW Plt Count MPV Absolute Neuts (auto) Neutrophils % Lymphocytes % Monocytes % Eosinophils % Basophils % Nucleated RBC % PT with INR INR Anticoagulation Therapy Puncture Site ABG pH ABG pCO2 at Pt Temp ABG pO2 at Pt Temp ABG HCO3 ABG O2 Sat (Measured) ABG O2 Content ABG Base Excess Bharathi Test Carboxyhemoglobin Methemoglobin O2 Delivery Device Oxygen Flow Rate Vent Mode Vent Rate Mechanical Rate Pressure Support Vent Sodium Potassium Chloride Carbon Dioxide Anion Gap BUN Creatinine Creat Clearance w eGFR POC Glucometer 215 488 535 Random Glucose Calcium Total Bilirubin AST ALT Alkaline Phosphatase Creatine Kinase Troponin I B-Natriuretic Peptide Total Protein Albumin Urine Color Urine Appearance Urine pH Ur Specific [place] Urine Protein Urine Glucose (UA) Urine Ketones Urine Blood Urine Nitrite Urine Bilirubin Urine Urobilinogen Ur Leukocyte Esterase Urine WBC (Auto) Urine RBC (Auto) Urine Bacteria Hyaline Casts Urine Mucus Influenza A (Rapid) Influenza B (Rapid) 10/14/18 10/14/18 10/14/18 06:43 11:40 14:12 WBC RBC Hgb Hct MCV MCH MCHC RDW Plt Count MPV Absolute Neuts (auto) Neutrophils % Lymphocytes % Monocytes % Eosinophils % Basophils % Nucleated RBC % PT with INR INR Anticoagulation Therapy Puncture Site ABG pH ABG pCO2 at Pt Temp ABG pO2 at Pt Temp ABG HCO3 ABG O2 Sat (Measured) ABG O2 Content ABG Base Excess Bharathi Test Carboxyhemoglobin Methemoglobin O2 Delivery Device Oxygen Flow Rate Vent Mode Vent Rate Mechanical Rate Pressure Support Vent Sodium Potassium Chloride Carbon Dioxide Anion Gap BUN Creatinine Creat Clearance w eGFR POC Glucometer 308 151 161 Random Glucose Calcium Total Bilirubin AST ALT Alkaline Phosphatase Creatine Kinase Troponin I B-Natriuretic Peptide Total Protein Albumin Urine Color Urine Appearance Urine pH Ur Specific [place] Urine Protein Urine Glucose (UA) Urine Ketones Urine Blood Urine Nitrite Urine Bilirubin Urine Urobilinogen Ur Leukocyte Esterase Urine WBC (Auto) Urine RBC (Auto) Urine Bacteria Hyaline Casts Urine Mucus Influenza A (Rapid) Influenza B (Rapid) 10/14/18 10/14/18 10/15/18 17:42 21:42 05:30 WBC 8.2 RBC 4.92 Hgb 14.7 Hct 45.8 H MCV 93.2 MCH 29.9 MCHC 32.1 RDW 17.6 H Plt Count 259 MPV 8.1 Absolute Neuts (auto) Neutrophils % Lymphocytes % Monocytes % Eosinophils % Basophils % Nucleated RBC % PT with INR INR Anticoagulation Therapy Puncture Site ABG pH ABG pCO2 at Pt Temp ABG pO2 at Pt Temp ABG HCO3 ABG O2 Sat (Measured) ABG O2 Content ABG Base Excess Bharathi Test Carboxyhemoglobin Methemoglobin O2 Delivery Device Oxygen Flow Rate Vent Mode Vent Rate Mechanical Rate Pressure Support Vent Sodium Potassium Chloride Carbon Dioxide Anion Gap BUN Creatinine Creat Clearance w eGFR POC Glucometer 186 382 Random Glucose Calcium Total Bilirubin AST ALT Alkaline Phosphatase Creatine Kinase Troponin I B-Natriuretic Peptide Total Protein Albumin Urine Color Urine Appearance Urine pH Ur Specific [place] Urine Protein Urine Glucose (UA) Urine Ketones Urine Blood Urine Nitrite Urine Bilirubin Urine Urobilinogen Ur Leukocyte Esterase Urine WBC (Auto) Urine RBC (Auto) Urine Bacteria Hyaline Casts Urine Mucus Influenza A (Rapid) Influenza B (Rapid) 10/15/18 10/15/18 10/15/18 05:30 05:53 12:12 WBC RBC Hgb Hct MCV MCH MCHC RDW Plt Count MPV Absolute Neuts (auto) Neutrophils % Lymphocytes % Monocytes % Eosinophils % Basophils % Nucleated RBC % PT with INR INR Anticoagulation Therapy Puncture Site ABG pH ABG pCO2 at Pt Temp ABG pO2 at Pt Temp ABG HCO3 ABG O2 Sat (Measured) ABG O2 Content ABG Base Excess Bharathi Test Carboxyhemoglobin Methemoglobin O2 Delivery Device Oxygen Flow Rate Vent Mode Vent Rate Mechanical Rate Pressure Support Vent Sodium 135 L Potassium 4.8 Chloride 99 Carbon Dioxide 29 Anion Gap 7 L BUN 35 H Creatinine 1.1 Creat Clearance w eGFR 51.20 POC Glucometer 352 287 Random Glucose 382 H* Calcium 8.3 L Total Bilirubin AST ALT Alkaline Phosphatase Creatine Kinase Troponin I B-Natriuretic Peptide Total Protein Albumin Urine Color Urine Appearance Urine pH Ur Specific [place] Urine Protein Urine Glucose (UA) Urine Ketones Urine Blood Urine Nitrite Urine Bilirubin Urine Urobilinogen Ur Leukocyte Esterase Urine WBC (Auto) Urine RBC (Auto) Urine Bacteria Hyaline Casts Urine Mucus Influenza A (Rapid) Influenza B (Rapid) 10/15/18 17:03 WBC RBC Hgb Hct MCV MCH MCHC RDW Plt Count MPV Absolute Neuts (auto) Neutrophils % Lymphocytes % Monocytes % Eosinophils % Basophils % Nucleated RBC % PT with INR INR Anticoagulation Therapy Puncture Site ABG pH ABG pCO2 at Pt Temp ABG pO2 at Pt Temp ABG HCO3 ABG O2 Sat (Measured) ABG O2 Content ABG Base Excess Bharathi Test Carboxyhemoglobin Methemoglobin O2 Delivery Device Oxygen Flow Rate Vent Mode Vent Rate Mechanical Rate Pressure Support Vent Sodium Potassium Chloride Carbon Dioxide Anion Gap BUN Creatinine Creat Clearance w eGFR POC Glucometer 214 Random Glucose Calcium Total Bilirubin AST ALT Alkaline Phosphatase Creatine Kinase Troponin I B-Natriuretic Peptide Total Protein Albumin Urine Color Urine Appearance Urine pH Ur Specific [place] Urine Protein Urine Glucose (UA) Urine Ketones Urine Blood Urine Nitrite Urine Bilirubin Urine Urobilinogen Ur Leukocyte Esterase Urine WBC (Auto) Urine RBC (Auto) Urine Bacteria Hyaline Casts Urine Mucus Influenza A (Rapid) Influenza B (Rapid) Active Medications Generic Name Dose Route Start Last Admin Trade Name Freq PRN Reason Stop Dose Admin Albuterol Sulfate 1 amp 10/11/18 23:53 Ventolin 0.083% Nebulizer Soln - NEB Q4H PRN SHORT OF BREATH/WHEEZING Albuterol Sulfate 1 amp 10/12/18 08:00 10/15/18 15:44 Ventolin 0.083% Nebulizer Soln - NEB 1 amp RQID [facility] Administration Carvedilol 6.25 mg 10/12/18 10:00 10/15/18 10:27 Coreg - PO 6.25 mg BID [facility] Administration Fluconazole 200 mg 10/13/18 13:30 10/15/18 10:28 Diflucan - PO 200 mg DAILY [facility] Administration Furosemide 40 mg 10/12/18 14:00 10/15/18 14:51 Lasix Injection - IVPUSH 40 mg BIDLASIX [facility] Administration Heparin Sodium (Porcine) 5,000 unit 10/12/18 10:00 10/15/18 10:28 Heparin - SQ 5,000 unit BID [facility] Administration Insulin Aspart 1 vial 10/13/18 22:00 10/15/18 17:05 Novolog Vial Sliding Scale - SQ 8 units ACHS [facility] Administration Protocol Insulin Detemir 25 units 10/13/18 22:00 10/14/18 21:46 Levemir Vial SQ 25 units HS [facility] Administration Insulin Detemir 30 units 10/14/18 07:00 10/15/18 06:37 Levemir Vial SQ 30 units AM [facility] Administration Montelukast Sodium 10 mg 10/12/18 22:00 10/14/18 21:32 Singulair - PO 10 mg HS [facility] Administration Nicotine 7 mg 10/13/18 19:30 10/15/18 10:27 Nicoderm Patch - TD 7 mg DAILY [facility] Administration Pantoprazole Sodium 20 mg 10/12/18 10:00 10/15/18 10:27 Protonix - PO 20 mg DAILY [facility] Administration Prednisone 40 mg 10/12/18 10:00 10/15/18 10:27 Deltasone - PO 40 mg BID [facility] Administration Sacubitril/Valsartan 1 tab 10/12/18 22:00 10/15/18 10:29 Entresto 24 Mg-26 Mg Tablet PO 1 tab BID [facility] Administration Spironolactone 25 mg 10/12/18 10:00 10/15/18 10:27 Aldactone - PO 25 mg DAILY [facility] Administration Tiotropium [place] 2 puff 10/12/18 10:00 10/15/18 10:32 Spiriva Respimat IH 2 puff DAILY [facility] Administration Microbiology 10/12/18 02:30 Urine - Urine Clean Catch Urine Culture - Final NO GROWTH OBTAINED Condition: Stable - Instructions Referrals: Ronnie Winkler MD [Staff Physician] - Andres Paredes MD [Staff Physician] - Stephan Rivera MD [Staff Physician] - Disposition: [facility] FACILITY - Home Medications Comprehensive Discharge Medication List: Ambulatory Orders Albuterol 2.5/Ipratropium 0.5 [Duoneb -] 1 neb NEB Q4H PRN #180 amp 05/03/17 Atorvastatin Ca [Lipitor] 10 mg PO HS #30 tab 05/03/17 Linaclotide [Linzess] 145 mcg PO DAILY #30 cap 05/03/17 Montelukast Na [Singulair -] 10 mg PO HS #30 tab 05/03/17 Esomeprazole Magnesium [Nexium 24Hr] 20 mg PO DAILY 04/20/18 Carvedilol [Coreg -] 6.25 mg PO BID #60 tablet 04/24/18 Furosemide [Lasix -] 40 mg PO DAILY #30 tablet 04/24/18 Insulin (Levemir) [Levemir Vial] 15 units SQ ACBK units 04/24/18 Insulin Sliding Scale [Novolog Vial Sliding Scale -] 1 vial SQ HS units Losartan Potassium [Cozaar -] 25 mg PO DAILY #30 tablet 04/24/18 Spironolactone [Aldactone -] 25 mg PO DAILY #30 tablet 04/24/18 Magnesium Hydrox 2400MG/30Ml [Milk of Magnesia -] 30 ml PO Q8H PRN #1 bot Polyethylene Glycol 3350 [Miralax 119 gm Btl -] 17 gm PO DAILY #1 bottle Sennosides [Senna -] 1 tab PO HS #30 tablet 05/02/18 Dapagliflozin Propanediol [Farxiga] 10 mg PO DAILY 09/20/18 Farxiga 10 mg PO DAILY 09/21/18 Albuterol 0.083% Nebulizer [place] [Ventolin 0.083% Nebulizer Soln -] 1 amp NEB Q4H PRN amp 09/26/18 Methylprednisolone [Medrol Dose Ivan] 4 mg PO ASDIR #21 tablet 09/26/18 Nicotine Patch [Nicoderm Patch -] 7 mg TD DAILY #30 patch 09/26/18
[2018-10-15] MEDS: MONTELUKAST NA 10 MG TABLET PO SCH (23:03)
[2018-10-16] MEDS: FUROSEMIDE 40 MG/4 ML INJECTABLE VIAL IVPUSH SCH (05:49)
[2018-10-16] MEDS: INSULIN (LEVEMIR) 100 UNITS/ML UNITS SQ SCH (06:21)
[2018-10-16] MEDS: INSULIN SLIDING SCALE (NOVOLOG) 1 VIAL SQ SCH ×4 (06:22→22:40)
[2018-10-16] MEDS: ALBUTEROL SO4 0.083% IH SOL 2.5 MG/3 ML VIAL.NEB. NEB SCH ×4 (08:33→20:35)
--- NOTE | 2018-10-16 09:08 | DS ---
Physical Examination Vital Signs: Vital Signs Temperature 97.8 F 10/16/18 05:20 Pulse Rate 86 10/16/18 05:20 Respiratory Rate 18 10/16/18 05:20 Blood Pressure 140/104 H 10/16/18 05:20 O2 Sat by Pulse Oximetry (%) 98 10/15/18 23:30 Cardiovascular: Yes: S1, S2 Respiratory: Yes: Rhonchi Gastrointestinal: Yes: Normal Bowel Sounds, Soft Edema: LLE: Trace, RLE: Trace Labs: CBC, BMP 10/15/18 05:30 10/15/18 05:30 Discharge Summary Reason For Visit: ACUTE ON CHRONIC CONGESTIVE HEART FAILURE HYPOGLYC Current Active Problems Acute on chronic respiratory failure with hypoxemia (Acute) CHF exacerbation (Acute) COPD (chronic obstructive pulmonary disease) (Acute) Diabetes (Acute) Hospital Course: 58 y/o female with past medical history of COPD, CHF, IDDM, HTN, HLD. Patient presented to ER with complaints of worsening SOB with productive cough x 3 days. CXR on admission showed progressive congestive changes with some basilar infiltrates and/or atelectasis with fluid, findings more prevalent on left than right. Evaluated by pulmonary and cardiology while inpatient. Since admission patient was started on IV methylprednisone, IV lasix, bronchodilators. Patient continues to have cough but states SOB has subsided. Repeat CXR shows congestive changes have diminished. Patient will be discharged to SNF. - Problems (1) Acute on chronic respiratory failure with hypoxemia Assessment/Plan: - flu was negative. -albuterol neb q6hrs -prednisone 40mg po bid -supplemental o2 via nasal cannula -tiotropium bromide 2 puffs/ day Code(s): J96.21 - ACUTE AND CHRONIC RESPIRATORY FAILURE WITH HYPOXIA (2) CHF exacerbation Assessment/Plan: -improved -cardiology and pulm consults -lasix -bblocker -ACEi -spironolactone -fluid restriction -salt restriction -monitor closely at snf Code(s): I50.9 - HEART FAILURE, UNSPECIFIED Qualifiers: Heart failure type: unspecified Qualified Code(s): I50.9 - Heart failure, unspecified (3) COPD (chronic obstructive pulmonary disease) Code(s): J44.9 - CHRONIC OBSTRUCTIVE PULMONARY DISEASE, UNSPECIFIED Qualifiers: COPD type: unspecified COPD Qualified Code(s): J44.9 - Chronic obstructive pulmonary disease, unspecified (4) Diabetes Assessment/Plan: -novolog sliding scale -diabetic diet -a1dc Code(s): E11.9 - TYPE 2 DIABETES MELLITUS WITHOUT COMPLICATIONS Qualifiers: Diabetes mellitus type: type 2 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: with 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 Diabetes mellitus complication status: with unspecified complications Qualified Code(s): E11.8 - Type 2 diabetes mellitus with unspecified complications; 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 Condition: Stable - Instructions Referrals: Ronnie Winkler MD [Staff Physician] - Stephan Rivera MD [Staff Physician] - Andres Paredes MD [Staff Physician] - Disposition[facility] - Home Medications Comprehensive Discharge Medication List: Ambulatory Orders Albuterol 2.5/Ipratropium 0.5 [Duoneb -] 1 neb NEB Q4H PRN #180 amp 05/03/17 Atorvastatin Ca [Lipitor] 10 mg PO HS #30 tab 05/03/17 Linaclotide [Linzess] 145 mcg PO DAILY #30 cap 05/03/17 Montelukast Na [Singulair -] 10 mg PO HS #30 tab 05/03/17 Esomeprazole Magnesium [Nexium 24Hr] 20 mg PO DAILY 04/20/18 Carvedilol [Coreg -] 6.25 mg PO BID #60 tablet 04/24/18 Furosemide [Lasix -] 40 mg PO DAILY #30 tablet 04/24/18 Insulin (Levemir) [Levemir Vial] 15 units SQ ACBK units 04/24/18 Insulin Sliding Scale [Novolog Vial Sliding Scale -] 1 vial SQ HS units Losartan Potassium [Cozaar -] 25 mg PO DAILY #30 tablet 04/24/18 Spironolactone [Aldactone -] 25 mg PO DAILY #30 tablet 04/24/18 Magnesium Hydrox 2400MG/30Ml [Milk of Magnesia -] 30 ml PO Q8H PRN #1 bot Polyethylene Glycol 3350 [Miralax 119 gm Btl -] 17 gm PO DAILY #1 bottle Sennosides [Senna -] 1 tab PO HS #30 tablet 05/02/18 Dapagliflozin Propanediol [Farxiga] 10 mg PO DAILY 09/20/18 Farxiga 10 mg PO DAILY 09/21/18 Albuterol 0.083% Nebulizer Chayito [Ventolin 0.083% Nebulizer Soln -] 1 amp NEB Q4H PRN amp 09/26/18 Methylprednisolone [Medrol Dose Ivan] 4 mg PO ASDIR #21 tablet 09/26/18 Nicotine Patch [Nicoderm Patch -] 7 mg TD DAILY #30 patch 09/26/18
[2018-10-16] MEDS ORDERED: PT OWN MED DRAWER 7, Y5N ONE (09:57)
[2018-10-16] MEDS: FLUCONAZOLE 100 MG TABLET (UD) PO SCH (10:23)
[2018-10-16] MEDS: NICOTINE 7 MG/24 HOURS TOPICAL PATCH TD SCH (10:23)
[2018-10-16] MEDS: PANTOPRAZOLE 20 MG TABLET (FP) PO SCH (10:24)
[2018-10-16] MEDS: HEPARIN NA (PORCINE) 5,000 UNITS/ML 1ML VIAL SQ SCH ×2 (10:24→22:43)
[2018-10-16] MEDS: SPIRONOLACTONE 25 MG TABLET (FP) PO SCH (10:24)
[2018-10-16] MEDS: predniSONE 20 MG TABLET (UD) PO SCH ×2 (10:24→22:41)
[2018-10-16] MEDS: CARVEDILOL 6.25 MG TABLET (FP) PO SCH ×2 (10:24→22:41)
[2018-10-16] MEDS: SACUBITRIL/VALSARTAN 24 MG-26 MG TABLET PO SCH ×2 (10:25→22:42)
[2018-10-16] MEDS: TIOTROPIUM BROMIDE 2.5 MCG (SPIRIVA) RESPIMAT INHALER IH SCH (10:25)
--- NOTE | 2018-10-16 11:39 | PN ---
Progress Note, Physician History of Present Illness: PULMONARY ALERT,FEELING BETTER,LESS DYSPNEIC - Current Medication List Current Medications: Active Medications Albuterol Sulfate (Ventolin 0.083% Nebulizer Soln -) 1 amp NEB Q4H PRN PRN Reason: SHORT OF BREATH/WHEEZING Albuterol Sulfate (Ventolin 0.083% Nebulizer Soln -) 1 amp NEB RQID [facility] Last Admin: 10/16/18 08:33 Dose: 1 amp Carvedilol (Coreg -) 6.25 mg PO BID [facility] Last Admin: 10/16/18 10:24 Dose: 6.25 mg Fluconazole (Diflucan -) 200 mg PO DAILY [facility] Last Admin: 10/16/18 10:23 Dose: 200 mg Furosemide (Lasix Injection -) 40 mg IVPUSH BIDLASIX [facility] Last Admin: 10/16/18 05:49 Dose: 40 mg Heparin Sodium (Porcine) (Heparin -) 5,000 unit SQ BID [facility] Last Admin: 10/16/18 10:24 Dose: 5,000 unit Insulin Aspart (Novolog Vial Sliding Scale -) 1 vial SQ [facility]; Protocol Last Admin: 10/16/18 06:22 Dose: 8 units Insulin Detemir (Levemir Vial) 25 units SQ HS [facility] Last Admin: 10/15/18 23:02 Dose: 25 units Insulin Detemir (Levemir Vial) 30 units SQ AM [facility] Last Admin: 10/16/18 06:21 Dose: 30 units Montelukast Sodium (Singulair -) 10 mg PO HS [facility] Last Admin: 10/15/18 23:03 Dose: 10 mg Nicotine (Nicoderm Patch -) 7 mg TD DAILY [facility] Last Admin: 10/16/18 10:23 Dose: 7 mg Pantoprazole Sodium (Protonix -) 20 mg PO DAILY [facility] Last Admin: 10/16/18 10:24 Dose: 20 mg Prednisone (Deltasone -) 40 mg PO BID [facility] Last Admin: 10/16/18 10:24 Dose: 40 mg Sacubitril/Valsartan (Entresto 24 Mg-26 Mg Tablet) 1 tab PO BID [facility] Last Admin: 10/16/18 10:25 Dose: 1 tab Spironolactone (Aldactone -) 25 mg PO DAILY [facility] Last Admin: 10/16/18 10:24 Dose: 25 mg Tiotropium [place] (Spiriva Respimat) 2 puff IH DAILY [facility] Last Admin: 10/16/18 10:25 Dose: 2 puff - Objective Vital Signs: Vital Signs Temperature 98 F 10/16/18 10:00 Pulse Rate 88 10/16/18 10:00 Respiratory Rate 20 10/16/18 10:00 Blood Pressure 127/78 10/16/18 10:00 O2 Sat by Pulse Oximetry (%) 98 10/15/18 23:30 Constitutional: Yes: Well Nourished, Calm Eyes: Yes: WNL HENT: Yes: WNL Neck: Yes: WNL Cardiovascular: Yes: Regular Rate and Rhythm, S1, S2 Respiratory: Yes: Wheezes (JAVY WHEEZES) Gastrointestinal: Yes: Normal Bowel Sounds, Soft Extremities: Yes: WNL Edema: Yes Labs: INR, PTT Problem List - Problems (1) Acute on chronic respiratory failure with hypoxemia Code(s): J96.21 - ACUTE AND CHRONIC RESPIRATORY FAILURE WITH HYPOXIA (2) CHF exacerbation Code(s): I50.9 - HEART FAILURE, UNSPECIFIED Qualifiers: Heart failure type: unspecified Qualified Code(s): I50.9 - Heart failure, unspecified (3) COPD (chronic obstructive pulmonary disease) Code(s): J44.9 - CHRONIC OBSTRUCTIVE PULMONARY DISEASE, UNSPECIFIED Qualifiers: COPD type: unspecified COPD Qualified Code(s): J44.9 - Chronic obstructive pulmonary disease, unspecified (4) Diabetes Code(s): E11.9 - TYPE 2 DIABETES MELLITUS WITHOUT COMPLICATIONS Qualifiers: Diabetes mellitus type: type 2 Diabetes mellitus snf insulin use: with terminal operations manager use Diabetes mellitus complication status: with unspecified complications Qualified Code(s): E11.8 - Type 2 diabetes mellitus with unspecified complications; Z79.4 - senior living (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 of insulin (5) Acute on chronic systolic (congestive) heart failure Code(s): I50.23 - ACUTE ON CHRONIC SYSTOLIC (CONGESTIVE) HEART FAILURE (6) COPD exacerbation Code(s): J44.1 - CHRONIC OBSTRUCTIVE PULMONARY DISEASE W (ACUTE) EXACERBATION (7) Cardiomyopathy Code(s): I42.9 - CARDIOMYOPATHY, UNSPECIFIED Qualifiers: Cardiomyopathy type: unspecified Qualified Code(s): I42.9 - Cardiomyopathy , unspecified (8) Controlled type 1 diabetes mellitus with peripheral vascular disease Code(s): E10.51 - TYPE 1 DIABETES W DIABETIC PERIPHERAL ANGIOPATH W/O GANGRENE (9) HTN (hypertension) Code(s): I10 - ESSENTIAL (PRIMARY) HYPERTENSION Qualifiers: Hypertension type: essential hypertension Qualified Code(s): I10 - Essential (primary) hypertension (10) Shortness of breath Code(s): R06.02 - SHORTNESS OF BREATH Assessment/Plan IMP ACUTE ON CHRONIC HYPOXEMIC RESPIRATORY FAILURE ACUTE ON CHRONIC CHF NON-ISCHEMIC CARDIOMYOPATHY COPD ? PNEUMONIA PLAN CONTINUE LASIX O2 INHALED BRONCHODILATORS DAILY WT F/U CHESTS X-RAYS MONITOR LYTES STRICT I+Os DR LOMELI Problem List - Problems (1) Acute on chronic respiratory failure with hypoxemia Code(s): J96.21 - ACUTE AND CHRONIC RESPIRATORY FAILURE WITH HYPOXIA (2) CHF exacerbation Code(s): I50.9 - HEART FAILURE, UNSPECIFIED Qualifiers: Heart failure type: unspecified Qualified Code(s): I50.9 - Heart failure, unspecified (3) COPD (chronic obstructive pulmonary disease) Code(s): J44.9 - CHRONIC OBSTRUCTIVE PULMONARY DISEASE, UNSPECIFIED Qualifiers: COPD type: unspecified COPD Qualified Code(s): J44.9 - Chronic obstructive pulmonary disease, unspecified (4) Diabetes Code(s): E11.9 - TYPE 2 DIABETES MELLITUS WITHOUT COMPLICATIONS Qualifiers: Diabetes mellitus type: type 2 Diabetes mellitus snf insulin use: with terminal operations manager use Diabetes mellitus complication status: with unspecified complications Qualified Code(s): E11.8 - Type 2 diabetes mellitus with unspecified complications; Z79.4 - senior living (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 of insulin (5) Acute on chronic systolic (congestive) heart failure Code(s): I50.23 - ACUTE ON CHRONIC SYSTOLIC (CONGESTIVE) HEART FAILURE (6) COPD exacerbation Code(s): J44.1 - CHRONIC OBSTRUCTIVE PULMONARY DISEASE W (ACUTE) EXACERBATION (7) Cardiomyopathy Code(s): I42.9 - CARDIOMYOPATHY, UNSPECIFIED Qualifiers: Cardiomyopathy type: unspecified Qualified Code(s): I42.9 - Cardiomyopathy , unspecified (8) Controlled type 1 diabetes mellitus with peripheral vascular disease Code(s): E10.51 - TYPE 1 DIABETES W DIABETIC PERIPHERAL ANGIOPATH W/O GANGRENE (9) HTN (hypertension) Code(s): I10 - ESSENTIAL (PRIMARY) HYPERTENSION Qualifiers: Hypertension type: essential hypertension Qualified Code(s): I10 - Essential (primary) hypertension (10) Shortness of breath Code(s): R06.02 - SHORTNESS OF BREATH
--- NOTE | 2018-10-16 12:01 | PN ---
Progress Note, Physician History of Present Illness: seen and examined today in nad. feeling better. no new complaints. - Current Medication List Current Medications: Active Medications Albuterol Sulfate (Ventolin 0.083% Nebulizer Soln -) 1 amp NEB Q4H PRN PRN Reason: SHORT OF BREATH/WHEEZING Albuterol Sulfate (Ventolin 0.083% Nebulizer Soln -) 1 amp NEB RQID [facility] Last Admin: 10/16/18 08:33 Dose: 1 amp Carvedilol (Coreg -) 6.25 mg PO BID [facility] Last Admin: 10/16/18 10:24 Dose: 6.25 mg Fluconazole (Diflucan -) 200 mg PO DAILY [facility] Last Admin: 10/16/18 10:23 Dose: 200 mg Furosemide (Lasix Injection -) 40 mg IVPUSH BIDLASIX [facility] Last Admin: 10/16/18 05:49 Dose: 40 mg Heparin Sodium (Porcine) (Heparin -) 5,000 unit SQ BID [facility] Last Admin: 10/16/18 10:24 Dose: 5,000 unit Insulin Aspart (Novolog Vial Sliding Scale -) 1 vial SQ [facility]; Protocol Last Admin: 10/16/18 06:22 Dose: 8 units Insulin Detemir (Levemir Vial) 25 units SQ HS [facility] Last Admin: 10/15/18 23:02 Dose: 25 units Insulin Detemir (Levemir Vial) 30 units SQ AM [facility] Last Admin: 10/16/18 06:21 Dose: 30 units Montelukast Sodium (Singulair -) 10 mg PO HS [facility] Last Admin: 10/15/18 23:03 Dose: 10 mg Nicotine (Nicoderm Patch -) 7 mg TD DAILY [facility] Last Admin: 10/16/18 10:23 Dose: 7 mg Pantoprazole Sodium (Protonix -) 20 mg PO DAILY [facility] Last Admin: 10/16/18 10:24 Dose: 20 mg Prednisone (Deltasone -) 40 mg PO BID [facility] Last Admin: 10/16/18 10:24 Dose: 40 mg Sacubitril/Valsartan (Entresto 24 Mg-26 Mg Tablet) 1 tab PO BID [facility] Last Admin: 10/16/18 10:25 Dose: 1 tab Spironolactone (Aldactone -) 25 mg PO DAILY [facility] Last Admin: 10/16/18 10:24 Dose: 25 mg Tiotropium [place] (Spiriva Respimat) 2 puff IH DAILY [facility] Last Admin: 10/16/18 10:25 Dose: 2 puff - Objective Vital Signs: Vital Signs Temperature 98 F 10/16/18 10:00 Pulse Rate 88 10/16/18 10:00 Respiratory Rate 20 10/16/18 10:00 Blood Pressure 127/78 10/16/18 10:00 O2 Sat by Pulse Oximetry (%) 98 10/15/18 23:30 Constitutional: Yes: No Distress, Calm Eyes: Yes: Conjunctiva Clear, EOM Intact HENT: Yes: Atraumatic, Normocephalic Neck: Yes: Supple, Trachea Midline Cardiovascular: Yes: Regular Rate and Rhythm, S1, S2. No: Bradycardia, Tachycardia, Pulse Irregular, Bruit, JVD, Gallop, Murmur, Rub, S3, S4, Varicosities Respiratory: Yes: Regular, Diminished, Rhonchi, Wheezes Gastrointestinal: Yes: Normal Bowel Sounds, Soft Extremities: Yes: WNL Edema: No Peripheral Pulses WNL: Yes Neurological: Yes: Alert, Oriented Psychiatric: Yes: Alert, Oriented Labs: CBC, BMP 10/15/18 05:30 10/15/18 05:30 INR, PTT INR 1.24 (0.83-1.09) H 10/11/18 20:41 - ....Imaging Chest X-ray: Report Reviewed, Image Reviewed EKG: Report Reviewed, Image Reviewed Other: Report Reviewed, Image Reviewed (tele-no sig events, pvcs) Assessment/Plan The patient is a 58-year-old obese female, with a history of diabetes, hypertension, hyperlipidemia, COPD/asthma, nonischemic cardiomyopathy with severe chronic systolic dysfunction, normal coronary arteries 10/28, now admitted with shortness of breath and chest pain, found with worsening CHF on CXR and increasing pro bnp. Known EF 15-20% by echo from 04/2018 1. chest pain- -normal coronaries by cath 2016. no testing is needed. 2. Acute on chronic systolic CHF Low EF noted on Echo transition to po lasix I's/O's/Wt's/Lytes daily 2 liter fluid restrict, 2gm NA diet cont entresto, coreg, aldactone close outpatient fup on discharge No additional inpatient cardiac work up needed at this time. Please call with any additional questions.
--- NOTE | 2018-10-16 12:17 | PN ---
Progress Note, Physician Chief Complaint: still coughing and congested - Current Medication List Current Medications: Active Medications Albuterol Sulfate (Ventolin 0.083% Nebulizer Soln -) 1 amp NEB Q4H PRN PRN Reason: SHORT OF BREATH/WHEEZING Albuterol Sulfate (Ventolin 0.083% Nebulizer Soln -) 1 amp NEB RQID [facility] Last Admin: 10/16/18 08:33 Dose: 1 amp Carvedilol (Coreg -) 6.25 mg PO BID [facility] Last Admin: 10/16/18 10:24 Dose: 6.25 mg Fluconazole (Diflucan -) 200 mg PO DAILY [facility] Last Admin: 10/16/18 10:23 Dose: 200 mg Furosemide (Lasix Injection -) 40 mg IVPUSH BIDLASIX [facility] Last Admin: 10/16/18 05:49 Dose: 40 mg Heparin Sodium (Porcine) (Heparin -) 5,000 unit SQ BID [facility] Last Admin: 10/16/18 10:24 Dose: 5,000 unit Insulin Aspart (Novolog Vial Sliding Scale -) 1 vial SQ [facility]; Protocol Last Admin: 10/16/18 06:22 Dose: 8 units Insulin Detemir (Levemir Vial) 25 units SQ HS [facility] Last Admin: 10/15/18 23:02 Dose: 25 units Insulin Detemir (Levemir Vial) 30 units SQ AM [facility] Last Admin: 10/16/18 06:21 Dose: 30 units Montelukast Sodium (Singulair -) 10 mg PO HS [facility] Last Admin: 10/15/18 23:03 Dose: 10 mg Nicotine (Nicoderm Patch -) 7 mg TD DAILY [facility] Last Admin: 10/16/18 10:23 Dose: 7 mg Pantoprazole Sodium (Protonix -) 20 mg PO DAILY [facility] Last Admin: 10/16/18 10:24 Dose: 20 mg Prednisone (Deltasone -) 40 mg PO BID [facility] Last Admin: 10/16/18 10:24 Dose: 40 mg Sacubitril/Valsartan (Entresto 24 Mg-26 Mg Tablet) 1 tab PO BID [facility] Last Admin: 10/16/18 10:25 Dose: 1 tab Spironolactone (Aldactone -) 25 mg PO DAILY [facility] Last Admin: 10/16/18 10:24 Dose: 25 mg Tiotropium [place] (Spiriva Respimat) 2 puff IH DAILY [facility] Last Admin: 10/16/18 10:25 Dose: 2 puff - Objective Vital Signs: Vital Signs Temperature 98 F 10/16/18 10:00 Pulse Rate 88 10/16/18 10:00 Respiratory Rate 20 10/16/18 10:00 Blood Pressure 127/78 10/16/18 10:00 O2 Sat by Pulse Oximetry (%) 98 10/15/18 23:30 Constitutional: Yes: Anxious Eyes: Yes: EOM Intact HENT: Yes: Normocephalic Neck: Yes: Trachea Midline Cardiovascular: Yes: Tachycardia Respiratory: Yes: On Nasal O2, SOB, Tachypnea, Wheezes Gastrointestinal: Yes: Normal Bowel Sounds ...Rectal Exam: Yes: Deferred Genitourinary: Yes: WNL Musculoskeletal: Yes: Back Pain, Muscle Pain, Muscle Weakness Edema: No Neurological: Yes: Alert, Oriented Labs: CBC, BMP 10/15/18 05:30 10/15/18 05:30 INR, PTT INR 1.24 (0.83-1.09) H 10/11/18 20:41 Problem List - Problems (1) Acute on chronic respiratory failure with hypoxemia Code(s): J96.21 - ACUTE AND CHRONIC RESPIRATORY FAILURE WITH HYPOXIA (2) COPD (chronic obstructive pulmonary disease) Code(s): J44.9 - CHRONIC OBSTRUCTIVE PULMONARY DISEASE, UNSPECIFIED Qualifiers: COPD type: unspecified COPD Qualified Code(s): J44.9 - Chronic obstructive pulmonary disease, unspecified (3) Diabetes Code(s): E11.9 - TYPE 2 DIABETES MELLITUS WITHOUT COMPLICATIONS Qualifiers: Diabetes mellitus type: type 2 Diabetes mellitus technician terminal and repeater insulin use: with chcf use Diabetes mellitus complication status: with unspecified complications Qualified Code(s): E11.8 - Type 2 diabetes mellitus with unspecified complications; Z79.4 - snf (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 of insulin (4) Abdominal pain Code(s): R10.9 - UNSPECIFIED ABDOMINAL PAIN (5) Abnormal liver enzymes Code(s): R74.8 - ABNORMAL LEVELS OF OTHER SERUM ENZYMES (6) Acute on chronic systolic (congestive) heart failure Code(s): I50.23 - ACUTE ON CHRONIC SYSTOLIC (CONGESTIVE) HEART FAILURE Assessment/Plan Current Active Problems Acute on chronic respiratory failure with hypoxemia (Acute) CHF exacerbation (Acute) COPD (chronic obstructive pulmonary disease) (Acute) Diabetes (Acute) Laboratory Results - last 24 hr 10/15/18 10/15/18 10/15/18 12:12 17:03 21:12 POC Glucometer 287 214 313 10/16/18 05:18 POC Glucometer 244 plan: bgm qid novolog scale 45 iu bid taper doses as requirement for steroids dec
[2018-10-16] MEDS: FUROSEMIDE 40 MG TABLET (FP) PO SCH (15:31)
[2018-10-16] MEDS ORDERED: INSULIN (LEVEMIR) 100 UNITS/ML UNITS SQ SCH ×2 (22:00→22:50)
[2018-10-16] MEDS: MONTELUKAST NA 10 MG TABLET PO SCH (22:43)
[2018-10-17 01:58] VITALS: BP 148/100; PULSE 86; TEMP 98
[2018-10-17] MEDS: FUROSEMIDE 40 MG TABLET (FP) PO SCH (06:00)
[2018-10-17] MEDS: INSULIN SLIDING SCALE (NOVOLOG) 1 VIAL SQ SCH ×2 (06:52→12:10)
--- NOTE | 2018-10-17 08:29 | DS ---
Physical Examination Vital Signs: Vital Signs Temperature 98 F 10/17/18 01:57 Pulse Rate 86 10/17/18 01:57 Respiratory Rate 20 10/17/18 01:57 Blood Pressure 148/100 10/17/18 01:57 O2 Sat by Pulse Oximetry (%) 96 10/16/18 21:00 Cardiovascular: Yes: S1, S2 Respiratory: Yes: Rhonchi Gastrointestinal: Yes: Normal Bowel Sounds, Soft Labs: CBC, BMP 10/15/18 05:30 10/15/18 05:30 Discharge Summary Reason For Visit: ACUTE ON CHRONIC CONGESTIVE HEART FAILURE HYPOGLYC Current Active Problems Acute on chronic respiratory failure with hypoxemia (Acute) CHF exacerbation (Acute) COPD (chronic obstructive pulmonary disease) (Acute) Diabetes (Acute) Hospital Course: 58 y/o female with past medical history of COPD, CHF, IDDM, HTN, HLD. Patient presented to ER with complaints of worsening SOB with productive cough x 3 days. CXR on admission showed progressive congestive changes with some basilar infiltrates and/or atelectasis with fluid, findings more prevalent on left than right. Evaluated by pulmonary and cardiology while inpatient. Since admission patient was started on IV methylprednisone, IV lasix, bronchodilators. Patient continues to have cough but states SOB has subsided. Repeat CXR shows congestive changes have diminished. Patient will be discharged to SNF. - Problems (1) Acute on chronic respiratory failure with hypoxemia Assessment/Plan: - flu was negative. -albuterol neb q6hrs -prednisone 40mg po bid -supplemental o2 via nasal cannula -tiotropium bromide 2 puffs/ day Code(s): J96.21 - ACUTE AND CHRONIC RESPIRATORY FAILURE WITH HYPOXIA (2) CHF exacerbation Assessment/Plan: -improved -cardiology and pulm consults -lasix -bblocker -ACEi -spironolactone -fluid restriction -salt restriction -monitor closely at snf Code(s): I50.9 - HEART FAILURE, UNSPECIFIED Qualifiers: Heart failure type: unspecified Qualified Code(s): I50.9 - Heart failure, unspecified (3) COPD (chronic obstructive pulmonary disease) Code(s): J44.9 - CHRONIC OBSTRUCTIVE PULMONARY DISEASE, UNSPECIFIED Qualifiers: COPD type: unspecified COPD Qualified Code(s): J44.9 - Chronic obstructive pulmonary disease, unspecified (4) Diabetes Assessment/Plan: -novolog sliding scale -diabetic diet -a1dc Code(s): E11.9 - TYPE 2 DIABETES MELLITUS WITHOUT COMPLICATIONS Qualifiers: Diabetes mellitus type: type 2 Diabetes mellitus senior living insulin use: with computer terminal operator use Diabetes mellitus complication status: with unspecified complications Qualified Code(s): E11.8 - Type 2 diabetes mellitus with unspecified complications; Z79.4 - petroleum terminal plant operator (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 of insulin Patient cleared for dc to SNF Condition: Stable - Instructions Referrals: Ronnie Winkler MD [Staff Physician] - Stephan Rivera MD [Staff Physician] - Andres Paredes MD [Staff Physician] - Disposition: HOME - Home Medications Comprehensive Discharge Medication List: Ambulatory Orders Albuterol 2.5/Ipratropium 0.5 [Duoneb -] 1 neb NEB Q4H PRN #180 amp 05/03/17 Atorvastatin Ca [Lipitor] 10 mg PO HS #30 tab 05/03/17 Linaclotide [Linzess] 145 mcg PO DAILY #30 cap 05/03/17 Montelukast Na [Singulair -] 10 mg PO HS #30 tab 05/03/17 Esomeprazole Magnesium [Nexium 24Hr] 20 mg PO DAILY 04/20/18 Carvedilol [Coreg -] 6.25 mg PO BID #60 tablet 04/24/18 Furosemide [Lasix -] 40 mg PO DAILY #30 tablet 04/24/18 Insulin (Levemir) [Levemir Vial] 15 units SQ ACBK units 04/24/18 Insulin Sliding Scale [Novolog Vial Sliding Scale -] 1 vial SQ HS units Losartan Potassium [Cozaar -] 25 mg PO DAILY #30 tablet 04/24/18 Spironolactone [Aldactone -] 25 mg PO DAILY #30 tablet 04/24/18 Magnesium Hydrox 2400MG/30Ml [Milk of Magnesia -] 30 ml PO Q8H PRN #1 bot Polyethylene Glycol 3350 [Miralax 119 gm Btl -] 17 gm PO DAILY #1 bottle Sennosides [Senna -] 1 tab PO HS #30 tablet 05/02/18 Dapagliflozin Propanediol [Farxiga] 10 mg PO DAILY 09/20/18 Farxiga 10 mg PO DAILY 09/21/18 Albuterol 0.083% Nebulizer [place] [Ventolin 0.083% Nebulizer Soln -] 1 amp NEB Q4H PRN amp 09/26/18 Methylprednisolone [Medrol Dose Ivan] 4 mg PO ASDIR #21 tablet 09/26/18 Nicotine Patch [Nicoderm Patch -] 7 mg TD DAILY #30 patch 09/26/18
[2018-10-17] MEDS ORDERED: predniSONE 10 MG TABLET (UD) PO SCH (10:00)
[2018-10-17] MEDS ORDERED: amLODIPine BESYLATE 5 MG TABLET (FP) PO SCH (10:00)
[2018-10-17] MEDS: SPIRONOLACTONE 25 MG TABLET (FP) PO SCH (12:08)
[2018-10-17] MEDS: CARVEDILOL 6.25 MG TABLET (FP) PO SCH (12:08)
[2018-10-17] MEDS: NICOTINE 7 MG/24 HOURS TOPICAL PATCH TD SCH (12:09)
[2018-10-17] MEDS: FLUCONAZOLE 100 MG TABLET (UD) PO SCH (12:09)
[2018-10-17] MEDS: SACUBITRIL/VALSARTAN 24 MG-26 MG TABLET PO SCH (12:09)
[2018-10-17] MEDS: HEPARIN NA (PORCINE) 5,000 UNITS/ML 1ML VIAL SQ SCH (12:09)
[2018-10-17] MEDS: TIOTROPIUM BROMIDE 2.5 MCG (SPIRIVA) RESPIMAT INHALER IH SCH (12:10)
[2018-10-17] MEDS: PANTOPRAZOLE 20 MG TABLET (FP) PO SCH (12:10)
[2018-10-17] MEDS ORDERED: INSULIN (LEVEMIR) 100 UNITS/ML UNITS SQ SCH (22:00)
== END 2018-10-17 11:09 | disposition home or self-care (01) | DRG 291 ==
LOC: JER 19:26 → JERBED 21:45 → J4W 10-12 11:11
PROVIDERS: ADMIT Internal Medicine; ATTEND Family Medicine
DX: I11.0 Hypertensive heart disease with heart failure (principal); J96.21 Acute and chronic respiratory failure with hypoxia; J44.1 Chronic obstructive pulmonary disease with (acute) exacerbation; I50.23 Acute on chronic systolic (congestive) heart failure; I42.9 Cardiomyopathy, unspecified; E11.40 Type 2 diabetes mellitus with diabetic neuropathy, unspecified; E11.65 Type 2 diabetes mellitus with hyperglycemia; Z79.4 Long term (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 of insulin; E78.5 Hyperlipidemia, unspecified; R07.9 Chest pain, unspecified; K59.00 Constipation, unspecified; R74.8 Abnormal levels of other serum enzymes; E66.9 Obesity, unspecified; Z68.38 Body mass index [BMI] 38.0-38.9, adult
CPT/HCPCS: 36415; 36600; 71045-TC-FY; 80048; 80053; 81003; 81015; 82375; 82550; 82803; 82962; 83050; 83880; 84484; 85025; 85027; 85610; 87086; 87804; 90688; 93005; 93010; 93306-TC; 93970-TC; 94640; 97116-GP; 97161-GP; 99284-25; G0008; J0131; J1644

== ENCOUNTER 2018-10-20 11:03 | Inpatient (IN) | payer OTHER ==
[2018-10-20] MEDS ORDERED: VANCOMYCIN HCL 1,500 MG in DEXTROSE 5%-WATER - 500 ML IVPB ONE (11:41)
[2018-10-20] MEDS ORDERED: PIPERACILLIN/TAZOB 4.5 GM 4.5 GM in DEXTROSE 5%-WATER 100 ML IVPB ONE (11:41)
[2018-10-20] MEDS ORDERED: ACETAMINOPHEN 1000 MG/100 ML VIAL (NON FORMULARY) IVPB ONE (11:42)
[2018-10-20] MEDS ORDERED: ACETAMINOPHEN INJECTION 100 ML IVPB ONE (12:05)
[2018-10-20] MEDS ORDERED: VANCOMYCIN 1 GRAM (PRE-DOCKED) 1,000 MG/250 ML BAG IVPB ONE (12:06)
[2018-10-20] MEDS ORDERED: PIPERACILLIN/TAZOB 4.5 GM 4.5 GM/100 ML BAG IVPB ONE (12:06)
[2018-10-20 12:24] LABS: BASO % 0.4 % (0-2.0); EOS % 0.5 % (0-4.5); HEMATOCRIT 47.6 % (32.4-45.2); LYMPH % 5.4 % (8-40); MCH 30.6 pg (25.7-33.7); MCHC 33.6 g/dl (32.0-36.0); MEAN CELL VOLUME 91.2 fl (80-96); MEAN PLT VOLUME 7.6 fl (7.5-11.1); MONO % 8.1 % (3.8-10.2); NEUT % 85.6 % (42.8-82.8); PLATELET COUNT 267 K/MM3 (134-434); RBC 5.22 M/mm3 (3.60-5.2); RDW 17.7 % (11.6-15.6); WHITE BLOOD COUNT 13.7 K/mm3 (4.0-10.0)
[2018-10-20 12:28] LABS: VENOUS PH 7.47 (7.32-7.42)
[2018-10-20 12:29] LABS: VENOUS PC02 46.8 mmHg (38-52); VENOUS PO2 56.8 mmHg (28-48)
--- NOTE | 2018-10-20 12:40 | PDOC ---
Attending Attestation - Resident Resident Name: BishopHernandez - ED Attending Attestation I have performed the following: I have examined & evaluated the patient, The case was reviewed & discussed with the resident, I agree w/resident's findings & plan, Exceptions are as noted - HPI HPI: 10/20/18 12:04 58 F with h/o COPD (2.5 L O2 at home), CHF (on 40 mg lasix), HTN, HLD, IDDM presenting to ED with fever, cough, and leg pain. Pt initially presented to ED with lower back pain radiating to her R leg. Pt states this pain has been chronic for years. However, over the past few days, the pain has worsened. Endorses pain all throughout her leg with ambulation. Pt denies any recent falls or injuries. Pt denies any limitation in her ROM. Pt in ED was incidentally found to have fever 103. Pt denies any subjective fevers, though she endorses cough that is productive. Denies CP/SOB. Denies abdominal pain. Denies dysuria. - Physicial Exam PE: 10/20/18 12:40 GENERAL: Awake, alert, and fully oriented, in no acute distress. HEAD: No signs of trauma EYES: PERRLA, EOMI, sclera anicteric, conjunctiva clear ENT: Auricles normal inspection, hearing grossly normal, nares patent, oropharynx clear without exudates. Moist mucosa NECK: Nontender, no stepoffs, Normal ROM, supple, no lymphadenopathy, JVD, or masses LUNGS: Breath sounds equal, clear to auscultation bilaterally. No wheezes, and no crackles HEART: Regular rate and rhythm, normal S1 and S2, no murmurs, rubs or gallops ABDOMEN: Soft, nontender, normoactive bowel sounds. No guarding, no rebound. No masses EXTREMITIES: Normal range of motion, no edema. No clubbing or cyanosis. No cords, erythema, or tenderness NEUROLOGICAL: Cranial nerves II through XII intact. 5/5 strength and sensation in all extremities, Normal speech, normal gait, normal cerebellar function SKIN: Warm, Dry, normal turgor, no rashes or lesions noted. - Critical Care Time Total Critical Care Time: 60 Critical Care Statement: The care of this patient involved high complexity decision making to prevent further life threatening deterioration of the patient 's condition and/or to evaluate & treat vital organ system(s) failure or risk of failure. - Medical Decision Making 10/20/18 12:40 58 F with RLE pain and fever + cough. Pt's leg pain is chronic. She has no evidence of traumatic injury. No clinical s/s DVT. Strong pulses distally, making acute arterial occlusion unlikely. Given pt's fever, septic arthritis may be a concern. However, she has full ROM and is still able to bear weight, making septic joint less likely. Will perform septic work up. Pt has h/o PNA and recent hospitalizations. - Labs, cultures - CXR, UA - XR RLE - Tylenol 10/20/18 13:47 CXR with congestive changes + possible RUL consolidation Labs notable for trop 0.13, likely 2/2 demand in context of sepsis Pt covered with vanc/zosyn Will diurese with lasix 40mg IV
[2018-10-20 12:41] LABS: INR 1.08 (0.83-1.09); PROTHROMBIN TIME (PATIENT) 12.8 SEC (9.7-13.0)
[2018-10-20 12:44] LABS: ACTIVATED PTT 25.7 SECONDS (25.2-36.5)
[2018-10-20 12:58] LABS: ALBUMIN 2.8 g/dl (3.4-5.0); ALK PHOS 210 U/L (45-117); ANION GAP 7 MMOL/L (8-16); BILIRUBIN,TOTAL 0.7 mg/dL (0.2-1); BLOOD UREA NITROGEN 26 mg/dL (7-18); CALCIUM 8.1 mg/dL (8.5-10.1); CHLORIDE 99 mmol/L (98-107); CO2 34 mmol/L (21-32); CREATININE 0.9 mg/dL (0.55-1.3); GLUCOSE,RANDOM 56 mg/dL (74-106); N-TERMINAL BNP 4638.4 pg/ml (5-125); SGOT/AST 21 U/L (15-37); SGPT/ALT 30 U/L (13-61); SODIUM 139 mmol/L (136-145)
[2018-10-20] MEDS ORDERED: DEXTROSE 50%-WATER - 25 GM/50 ML VIAL IVPUSH ONE (13:04)
[2018-10-20] MEDS ORDERED: DEXTROSE 50%-WATER - 25 GM/50 ML VIAL ONE (13:05)
--- NOTE | 2018-10-20 13:21 | PDOC ---
History of Present Illness - General Chief Complaint: Pain, Acute Stated Complaint: LEG/BACK PAIN Time Seen by Provider: 10/20/18 11:21 Past History - Past Medical History Allergies/Adverse Reactions: Allergies Allergy/AdvReac Type Severity Reaction Status Date / Time No Known Allergies Allergy Verified 10/11/18 19:50 Home Medications: Ambulatory Orders Albuterol 2.5/Ipratropium 0.5 [Duoneb -] 1 neb NEB Q4H PRN #180 amp 05/03/17 Atorvastatin Ca [Lipitor] 10 mg PO HS #30 tab 05/03/17 Linaclotide [Linzess] 145 mcg PO DAILY #30 cap 05/03/17 Montelukast Na [Singulair -] 10 mg PO HS #30 tab 05/03/17 Esomeprazole Magnesium [Nexium 24Hr] 20 mg PO DAILY 04/20/18 Carvedilol [Coreg -] 6.25 mg PO BID #60 tablet 04/24/18 Furosemide [Lasix -] 40 mg PO DAILY #30 tablet 04/24/18 Insulin (Levemir) [Levemir Vial] 15 units SQ ACBK units 04/24/18 Losartan Potassium [Cozaar -] 25 mg PO DAILY #30 tablet 04/24/18 Magnesium Hydrox 2400MG/30Ml [Milk of Magnesia -] 30 ml PO Q8H PRN #1 bot Polyethylene Glycol 3350 [Miralax 119 gm Btl -] 17 gm PO DAILY #1 bottle Sennosides [Senna -] 1 tab PO HS #30 tablet 05/02/18 Dapagliflozin Propanediol [Farxiga] 10 mg PO DAILY 09/20/18 Albuterol 0.083% Nebulizer Chayito [Ventolin 0.083% Nebulizer Soln -] 1 amp NEB Q4H PRN amp 09/26/18 Insulin Sliding Scale [Novolog Vial Sliding Scale -] 1 vial SQ ASDIR 10/20/18 Asthma: Yes Cancer: No Cardiac Disorders: Yes (SOB) COPD: Yes CHF: Yes DVT: No Diabetes: Yes GI Disorders: No Disorders: No HTN: Yes Hypercholesterolemia: Yes Liver Disease: No Thyroid Disease: No - Surgical History Cholecystectomy: Yes Orthopedic Surgery: (lt shoulder repair) - Immunization History Immunization Up to Date: Yes - Suicide/Smoking/Psychosocial Hx Smoking History: Unknown if ever smoked Have you smoked in the past 12 months: No Number of Cigarettes Smoked Daily: 10 If you are a former smoker, when did you quit?: 2 WEEKS AGO Cigars Per Day: 0 Information on smoking cessation initiated: No 'Breaking Loose' booklet given: 10/12/18 Hx Alcohol Use: No Drug/Substance Use Hx: No Substance Use Type: None Hx Substance Use Treatment: No *Physical Exam - Vital Signs Last Vital Signs Temp Pulse Resp BP Pulse Ox 103.7 F H 122 H 22 H 154/61 97 10/20/18 12:02 10/20/18 12:02 10/20/18 12:02 10/20/18 12:02 10/20/18 12:02 Moderate Sedation - Procedure Monitoring Vital Signs: Procedure Monitoring Vital Signs Temperature 103.7 F H 10/20/18 12:02 Pulse Rate 122 H 10/20/18 12:02 Respiratory Rate 22 H 10/20/18 12:02 Blood Pressure 154/61 10/20/18 12:02 O2 Sat by Pulse Oximetry (%) 97 10/20/18 12:02 ED Treatment Course - LABORATORY CBC & Chemistry Diagram: 10/20/18 11:00 10/20/18 11:00 - ADDITIONAL ORDERS Additional order review: Laboratory Results 10/20/18 10/20/18 10/20/18 13:02 11:00 11:00 PT with INR INR PTT (Actin FS) VBG pH POC VBG pCO2 POC VBG pO2 VBG HCO3 VBG O2 Sat (Artie) VBG Base Excess Sodium 139 Potassium 4.0 Chloride 99 Carbon Dioxide 34 H Anion Gap 7 L BUN 26 H Creatinine 0.9 Creat Clearance w eGFR > 60 POC Glucometer 47 Random Glucose 56 L Lactic Acid 1.4 Calcium 8.1 L Total Bilirubin 0.7 AST 21 ALT 30 Alkaline Phosphatase 210 H Troponin I 0.13 H B-Natriuretic Peptide 4638.4 H Total Protein 6.0 L Albumin 2.8 L 10/20/18 10/20/18 11:00 11:00 PT with INR 12.80 INR 1.08 PTT (Actin FS) 25.7 VBG pH 7.47 H POC VBG pCO2 46.8 POC VBG pO2 56.8 H VBG HCO3 33.9 L* VBG O2 Sat (Artie) 89.4 H* VBG Base Excess No Result Required. Sodium Potassium Chloride Carbon Dioxide Anion Gap BUN Creatinine Creat Clearance w eGFR POC Glucometer Random Glucose Lactic Acid Calcium Total Bilirubin AST ALT Alkaline Phosphatase Troponin I B-Natriuretic Peptide Total Protein Albumin 10/20/18 10/20/18 13:02 11:00 RBC 5.22 H MCV 91.2 MCHC 33.6 RDW 17.7 H MPV 7.6 Neutrophils % 85.6 H Lymphocytes % 5.4 L D Monocytes % 8.1 Eosinophils % 0.5 Basophils % 0.4 POC Glucometer 47 - RADIOLOGY Radiology Studies Ordered: Category Date Time Status CHEST - PA [RAD] Stat Radiology 10/20/18 11:54 Completed HIP & PELVIS-RIGHT [RAD] Stat Radiology 10/20/18 11:54 Ordered KNEE 3 POS-RIGHT [RAD] Stat Radiology 10/20/18 11:54 Ordered - Medications Given in the ED: ED Medications Discontinued Medications Generic Name Dose Route Start Last Admin Trade Name Freq PRN Reason Stop Dose Admin Acetaminophen 1,000 mg 10/20/18 11:42 10/20/18 12:08 Ofirmev Injection - IVPB 10/20/18 11:43 1,000 mg ONCE ONE Administration Dextrose 12.5 gm 10/20/18 13:04 10/20/18 13:05 D50w (Vial) - IVPUSH 10/20/18 13:05 12.5 gm NOW ONE Administration Piperacillin Sod/Tazobactam 100 mls @ 200 mls/hr 10/20/18 11:41 10/20/18 12: 08 Sod 4.5 gm/ Dextrose IVPB 10/20/18 12:10 200 mls/hr ONCE ONE Administration Protocol *DC/Admit/Observation/Transfer Diagnosis at time of Disposition: Consolidation of right upper lobe Sepsis Qualifiers: Sepsis type: sepsis due to unspecified organism Qualified Code(s): A41.9 - Sepsis, unspecified organism COPD (chronic obstructive pulmonary disease) Qualifiers: COPD type: unspecified COPD Qualified Code(s): J44.9 - Chronic obstructive pulmonary disease, unspecified CHF (congestive heart failure) Qualifiers: Heart failure type: unspecified Heart failure chronicity: unspecified Qualified Code(s): I50.9 - Heart failure, unspecified - Discharge Dispostion Condition at time of disposition: Fair Decision to Admit order: Yes - Referrals - Patient Instructions - Post Discharge Activity
[2018-10-20 13:32] LABS: URINE APPEARANCE CLEAR; URINE BILIRUBIN NEGATIVE (<2.0 mg/dL); URINE COLOR YELLOW; URINE GLUCOSE (UA) 3+ (NEGATIVE); URINE KETONE NEGATIVE (NEGATIVE); URINE LEUK ESTERASE TRACE (NEGATIVE); URINE NITRITE NEGATIVE (NEGATIVE); URINE PROTEIN 3+ (NEGATIVE)
[2018-10-20] MEDS ORDERED: FUROSEMIDE 40 MG/4 ML INJECTABLE VIAL IVPUSH ONE (13:49)
[2018-10-20] MEDS ORDERED: FUROSEMIDE 40 MG/4 ML INJECTABLE VIAL ONE (14:23)
[2018-10-20 15:09] LABS: EPI CELLS 1+ /HPF (FEW)
[2018-10-20 15:10] LABS: URINE BACTERIA R /hpf (NONE SEEN)
[2018-10-20] MEDS: methylPREDNISolone NA SUCC 40 MG/1 ML VIAL IVPUSH SCH ×2 (18:14→22:12)
[2018-10-20 19:25] LABS: ANISOCYTOSIS 0; MACROCYTOSIS 0; PLATELET ESTIMATE DECREASED
[2018-10-20] MEDS: SENNOSIDES 8.6MG TABLET (FP) PO SCH (22:10)
[2018-10-20] MEDS: MONTELUKAST NA 10 MG TABLET PO SCH (22:10)
[2018-10-20] MEDS: POLYETHYLENE GLYCOL 3350 119 GM BTL PO SCH (22:10)
[2018-10-20] MEDS: ATORVASTATIN CA 10 MG TABLET (FP) PO SCH (22:10)
[2018-10-20] MEDS: CARVEDILOL 6.25 MG TABLET (FP) PO SCH (22:10)
[2018-10-20] MEDS: ACETAMINOPHEN 325 MG TABLET (FP) PO PRN (22:10)
[2018-10-20] MEDS: HEPARIN NA (PORCINE) 5,000 UNITS/ML 1ML VIAL SQ SCH (22:12)
[2018-10-20] MEDS: INSULIN SLIDING SCALE (NOVOLOG) 1 VIAL SQ SCH (22:13)
[2018-10-20] MEDS ORDERED: PT OWN MED DRAWER 7, Y5N ONE (23:20)
[2018-10-20] MEDS: NICOTINE 7 MG/24 HOURS TOPICAL PATCH TD SCH (23:21)
[2018-10-20 23:58] VITALS: BMI 34.8
[2018-10-21] MEDS: methylPREDNISolone NA SUCC 40 MG/1 ML VIAL IVPUSH SCH ×4 (03:27→21:37)
[2018-10-21] MEDS: ACETAMINOPHEN 325 MG TABLET (FP) PO PRN (05:55)
[2018-10-21] MEDS: FUROSEMIDE 40 MG/4 ML INJECTABLE VIAL IVPUSH SCH ×2 (05:56→14:45)
[2018-10-21] MEDS: INSULIN SLIDING SCALE (NOVOLOG) 1 VIAL SQ SCH ×4 (05:59→22:26)
[2018-10-21] MEDS ORDERED: INSULIN (LEVEMIR) 100 UNITS/ML UNITS SQ SCH (07:00)
[2018-10-21 07:30] LABS: BASO % 0.1 % (0-2.0); HEMATOCRIT 46.7 % (32.4-45.2); HEMOGLOBIN 15.3 GM/dL (10.7-15.3); LYMPH % 2.2 % (8-40); MCH 30.1 pg (25.7-33.7); MCHC 32.7 g/dl (32.0-36.0); MEAN CELL VOLUME 92.1 fl (80-96); MONO % 0.5 % (3.8-10.2); NEUT % 97.2 % (42.8-82.8); PLATELET COUNT 233 K/MM3 (134-434); RBC 5.07 M/mm3 (3.60-5.2); RDW 17.4 % (11.6-15.6); WHITE BLOOD COUNT 19.2 K/mm3 (4.0-10.0)
[2018-10-21 08:22] LABS: ALBUMIN 2.7 g/dl (3.4-5.0); ALK PHOS 170 U/L (45-117); ANION GAP 9 MMOL/L (8-16); BILIRUBIN,TOTAL 0.9 mg/dL (0.2-1); BLOOD UREA NITROGEN 26 mg/dL (7-18); CALCIUM 7.7 mg/dL (8.5-10.1); CHLORIDE 98 mmol/L (98-107); CO2 31 mmol/L (21-32); CREATININE 1.1 mg/dL (0.55-1.3); MAGNESIUM 2.2 mg/dL (1.8-2.4); N-TERMINAL BNP 5525.9 pg/ml (5-125); POTASSIUM 4.3 mmol/L (3.5-5.1); SGOT/AST 16 U/L (15-37); SGPT/ALT 28 U/L (13-61); SODIUM 138 mmol/L (136-145); TOT PROT 5.9 g/dl (6.4-8.2)
[2018-10-21 08:28] LABS: GLUCOSE,RANDOM 341 mg/dL (74-106)
--- NOTE | 2018-10-21 09:37 | HP ---
Admitting History and Physical - Admission History of Present Illness: 58 F with h/o COPD (2.5 L O2 at home), CHF (on 40 mg lasix), HTN, HLD, IDDM presenting to ED with fever, cough, and leg pain. Pt initially presented to ED with lower back pain radiating to her R leg. Pt states this pain has been chronic for years. However, over the past few days, the pain has worsened. Endorses pain all throughout her leg with ambulation. Pt denies any recent falls or injuries. Pt denies any limitation in her ROM. Pt in ED was incidentally found to have fever 103. Pt denies any subjective fevers, though she endorses cough that is productive. Denies CP/SOB. Denies abdominal pain. Denies dysuria. - Past Medical History Cardiovascular: Yes: CHF, HTN, Hyperlipdemia. No: AFIB, CAD Pulmonary: Yes: Asthma, COPD, O2 Dependent. No: Pneumonia, Previously Intubated , Pulmonary Embolus, Pulmonary Fibrosis, Sleep Apnea Gastrointestinal: Yes: GERD. No: Cancer Renal/: Yes: Renal Inusuff ...: No Endocrine: Yes: Diabetes Mellitus - Smoking History Smoking history: Former smoker Have you smoked in the past 12 months: Yes Aproximately how many cigarettes per day: 10 If you are a former smoker, when did you quit?: 3 WEEKS AGO - Alcohol/Substance Use Hx Alcohol Use: No History of Substance Use: reports: None - Social History ADL: Independent History of Recent Travel: No Home Medications - Allergies Allergies/Adverse Reactions: Allergies Allergy/AdvReac Type Severity Reaction Status Date / Time No Known Allergies Allergy Verified 10/11/18 19:50 - Home Medications Home Medications: Ambulatory Orders Albuterol 2.5/Ipratropium 0.5 [Duoneb -] 1 neb NEB Q4H PRN #180 amp 05/03/17 Atorvastatin Ca [Lipitor] 10 mg PO HS #30 tab 05/03/17 Linaclotide [Linzess] 145 mcg PO DAILY #30 cap 05/03/17 Montelukast Na [Singulair -] 10 mg PO HS #30 tab 05/03/17 Esomeprazole Magnesium [Nexium 24Hr] 20 mg PO DAILY 04/20/18 Carvedilol [Coreg -] 6.25 mg PO BID #60 tablet 04/24/18 Furosemide [Lasix -] 40 mg PO DAILY #30 tablet 04/24/18 Insulin (Levemir) [Levemir Vial] 15 units SQ ACBK units 04/24/18 Losartan Potassium [Cozaar -] 25 mg PO DAILY #30 tablet 04/24/18 Magnesium Hydrox 2400MG/30Ml [Milk of Magnesia -] 30 ml PO Q8H PRN #1 bot Polyethylene Glycol 3350 [Miralax 119 gm Btl -] 17 gm PO DAILY #1 bottle Sennosides [Senna -] 1 tab PO HS #30 tablet 05/02/18 Dapagliflozin Propanediol [Farxiga] 10 mg PO DAILY 09/20/18 Albuterol 0.083% Nebulizer Chayito [Ventolin 0.083% Nebulizer Soln -] 1 amp NEB Q4H PRN amp 09/26/18 Insulin Sliding Scale [Novolog Vial Sliding Scale -] 1 vial SQ ASDIR 10/20/18 Nicotine Patch [Nicoderm Patch -] 1 patch TD DAILY 10/20/18 Family Disease History - Family Disease History Family Disease History: Diabetes: Father, Brother Review of Systems - Review of Systems Constitutional: reports: Fever, Weakness Cardiovascular: denies: Chest Pain Respiratory: reports: Cough, SOB on Exertion Gastrointestinal: denies: Abdominal Pain Genitourinary: reports: No Symptoms Musculoskeletal: reports: Back Pain, Extremity Pain, Muscle Weakness Neurological: reports: Numbness (-leg) Physical Examination Vital Signs: Vital Signs Temperature 97.5 F L 10/21/18 05:50 Pulse Rate 98 H 10/21/18 05:50 Respiratory Rate 20 10/21/18 05:50 Blood Pressure 143/55 L 10/21/18 05:50 O2 Sat by Pulse Oximetry (%) 98 10/20/18 21:00 Cardiovascular: Yes: S1, S2 Respiratory: Yes: Regular, CTA Bilaterally Gastrointestinal: Yes: Normal Bowel Sounds, Soft Musculoskeletal: Yes: Muscle Weakness (-right leg) Extremities: No: Erythema Neurological: Yes: Alert, Oriented, Weakness (leg) Labs: CBC, BMP 10/21/18 06:10 10/21/18 06:10 Problem List - Problems (1) Fever Assessment/Plan: --CULTURES DONE IV ABX ID CONSULT Code(s): R50.9 - FEVER, UNSPECIFIED (2) Radiculopathy of leg Assessment/Plan: --Xray of ls -mri -neuro consult -pt Code(s): M54.10 - RADICULOPATHY, SITE UNSPECIFIED (3) CHF (congestive heart failure) Assessment/Plan: IV LASIX CARDIO Code(s): I50.9 - HEART FAILURE, UNSPECIFIED Qualifiers: Heart failure type: unspecified Heart failure chronicity: unspecified Qualified Code(s): I50.9 - Heart failure, unspecified (4) COPD (chronic obstructive pulmonary disease) Assessment/Plan: NEBS STEROIDS PULM Code(s): J44.9 - CHRONIC OBSTRUCTIVE PULMONARY DISEASE, UNSPECIFIED Qualifiers: COPD type: unspecified COPD Qualified Code(s): J44.9 - Chronic obstructive pulmonary disease, unspecified (5) Sepsis Code(s): A41.9 - SEPSIS, UNSPECIFIED ORGANISM Qualifiers: Sepsis type: sepsis due to unspecified organism Qualified Code(s): A41.9 - Sepsis, unspecified organism (6) Diabetes Assessment/Plan: BGM SS ENDO Code(s): E11.9 - TYPE 2 DIABETES MELLITUS WITHOUT COMPLICATIONS Qualifiers: Diabetes mellitus type: type 2 Diabetes mellitus intermediate teacher insulin use: with intermediate teacher use Diabetes mellitus complication status: with unspecified complications Qualified Code(s): E11.8 - Type 2 diabetes mellitus with unspecified complications; 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
[2018-10-21] MEDS ORDERED: PT OWN MED DRAWER 7, Y5N ONE (09:41)
[2018-10-21] MEDS: CARVEDILOL 6.25 MG TABLET (FP) PO SCH ×2 (09:48→21:37)
[2018-10-21] MEDS: LOSARTAN POTASSIUM 25 MG TABLET PO SCH (09:48)
[2018-10-21] MEDS: HEPARIN NA (PORCINE) 5,000 UNITS/ML 1ML VIAL SQ SCH ×2 (09:49→21:37)
[2018-10-21] MEDS: POLYETHYLENE GLYCOL 3350 119 GM BTL PO SCH ×2 (09:50→21:44)
[2018-10-21] MEDS: NICOTINE 7 MG/24 HOURS TOPICAL PATCH TD SCH (09:50)
[2018-10-21 10:34] LABS: ANISOCYTOSIS 0; MACROCYTOSIS 0; PLATELET ESTIMATE NORMAL
--- NOTE | 2018-10-21 11:55 | EKG ---
Test Reason : Blood Pressure : / mmHG Vent. Rate : 133 BPM Atrial Rate : 119 BPM P-R Int : 142 ms QRS Dur : 084 ms QT Int : 334 ms P-R-T Axes : 008 165 062 degrees QTc Int : 497 ms SINUS TACHYCARDIA RIGHT AXIS DEVIATION SEPTAL INFARCT , AGE UNDETERMINED ABNORMAL ECG Confirmed by LIVAN RICARDO MD ([id number]) on 10/21/2018 11:55:05 AM Referred By: Confirmed By:LIVAN RICARDO MD
[2018-10-21] MEDS ORDERED: PIPERACILLIN/TAZOBACTAM 3.375 GM VIAL IVPB ONE ×2 (12:39→17:50)
[2018-10-21] MEDS ORDERED: DEXTROSE 5%-WATER - 50 ML IVPB ONE ×2 (12:40→17:50)
[2018-10-21] MEDS: PIPERACILLIN/TAZOB 3.375 GM 3.375 GM in DEXTROSE 5%-WATER - 50 ML IVPB SCH ×4 (12:43→22:09)
--- NOTE | 2018-10-21 13:19 | PN ---
Progress Note (short form) - Note Progress Note: PULMONARY CONSULTATION DICTATED 10/21/18 IMP DYSPNEA ACUTE ON CHRONIC CHF NON-ISCHEMIC CARDIOMYOPATHY WITH SEVERE LV DYSFUNCTION FEVER/HEMOPTYSIS R/O PNEUMONIA RUL COPD RLL EXT PAIN H/O TOBACCO ABUSE IDDM HTN PLAN ABX LASIX INHALED BRONCHODILATORS CHEST CT CULTURES DAILY WT INFLUENZA SCREEN QUANTIFY HEMOPTYSIS DR LOMELI Problem List - Problems (1) CHF (congestive heart failure) Code(s): I50.9 - HEART FAILURE, UNSPECIFIED Qualifiers: Heart failure type: unspecified Heart failure chronicity: unspecified Qualified Code(s): I50.9 - Heart failure, unspecified (2) COPD (chronic obstructive pulmonary disease) Code(s): J44.9 - CHRONIC OBSTRUCTIVE PULMONARY DISEASE, UNSPECIFIED Qualifiers: COPD type: unspecified COPD Qualified Code(s): J44.9 - Chronic obstructive pulmonary disease, unspecified (3) Consolidation of right upper lobe Code(s): J18.1 - LOBAR PNEUMONIA, UNSPECIFIED ORGANISM (4) Fever Code(s): R50.9 - FEVER, UNSPECIFIED (5) Radiculopathy of leg Code(s): M54.10 - RADICULOPATHY, SITE UNSPECIFIED (6) Acute on chronic respiratory failure with hypoxemia Code(s): J96.21 - ACUTE AND CHRONIC RESPIRATORY FAILURE WITH HYPOXIA (7) Acute on chronic systolic (congestive) heart failure Code(s): I50.23 - ACUTE ON CHRONIC SYSTOLIC (CONGESTIVE) HEART FAILURE (8) Cardiomyopathy Code(s): I42.9 - CARDIOMYOPATHY, UNSPECIFIED Qualifiers: Cardiomyopathy type: unspecified Qualified Code(s): I42.9 - Cardiomyopathy , unspecified (9) HTN (hypertension) Code(s): I10 - ESSENTIAL (PRIMARY) HYPERTENSION Qualifiers: Hypertension type: essential hypertension Qualified Code(s): I10 - Essential (primary) hypertension (10) Hemoptysis Code(s): R04.2 - HEMOPTYSIS (11) Pneumonia Code(s): J18.9 - PNEUMONIA, UNSPECIFIED ORGANISM (12) Smoker Code(s): F17.200 - NICOTINE DEPENDENCE, UNSPECIFIED, UNCOMPLICATED
--- NOTE | 2018-10-21 14:05 | CONS ---
DATE OF CONSULTATION: 10/21/2018 REFERRING PHYSICIAN: Ronnie Winkler MD The patient is a 58-year-old female with an extensive past medical history, which includes diabetes, hypertension, COPD, asthma, long-standing history of tobacco use, approximately 1 pack a day for many years, quit approximately 2 to 3 weeks ago, severe nonischemic cardiomyopathy with severe systolic dysfunction and left ventricular ejection fraction approximately 15% to 20%, recently discharged from [facility] secondary to CHF exacerbation, re-admitted on October 20 with a complaint of increasing shortness of breath, cough, fever, and hemoptysis. As stated before, she was recently discharged, treated at the hospital secondary to CHF. For the past couple of days though, she started noticing fever, cough productive of bloody sputum, as well as right lower extremity pain. She denies any nausea, vomiting or diaphoresis. She also complained of lower back pain. She presented back to the emergency room. In the ER, she was felt to have possible pneumonia in the right upper lobe. She was admitted to the telemetry unit and started on IV Lasix as well as broad-spectrum antibiotics to cover hospital-acquired pneumonia. Patient denies any nausea, vomiting or diaphoresis. Denies any chest pains or palpitations. Past medical history, again, includes nonischemic cardiomyopathy with severe LV dysfunction with an ejection fraction 15% to 20%, hypertension, diabetes, COPD. REVIEW OF SYSTEMS: Positive orthopnea, positive dyspnea, positive cough, positive hemoptysis, positive fever, positive chills. No abdominal pain. Positive right lower extremity pain. Current medications include Solu-Medrol 40 q.6, Tylenol, Cozaar, piperacillin, heparin, NicoDerm, DuoNeb, Coreg, MiraLax, senna, Lipitor, Singulair, and Lasix IV b.i.d. PHYSICAL EXAMINATION: General: The patient is a well-developed well-nourished female, awake, alert, appears comfortable, in no acute respiratory distress. Vital Signs: She is currently afebrile. T-max is 103.7. Blood pressure 132/88. Respiratory rate 22. O2 saturation 92% on 2 L. HEENT: Normocephalic, atraumatic. Neck: Supple. Heart: Regular, S1, S2. Chest: Bilateral wheezes and rhonchi and a few scattered bibasilar crackles, crackles one-third up. Abdomen: Soft. Bowel sounds are positive. Extremities: No cyanosis or edema. LABORATORY DATA: BUN 26, creatinine 1.1, glucose 341. BNP 5525. WBC is 19.2, hemoglobin 15.3, hematocrit 46.7, with a platelet count of 233,000, 97 polys, 18 neutrophils, and 2 lymphs. Venous blood gas: pH 7.47, pCO2 of 46, pO2 of 56. Chest x-ray revealed pulmonary vascular congestion, cardiomegaly, and possible right upper lobe infiltrate. IMPRESSION: 1. Dyspnea, most likely secondary to acute on chronic congestive heart failure. 2. Non-ischemic cardiomyopathy with severe left ventricular dysfunction. 3. Fever, hemoptysis. Rule out pneumonia, right upper lobe, hospital acquired. 4. Chronic obstructive pulmonary disease. 5. Right lower extremity pain, possibly musculoskeletal. 6. History of tobacco use. 7. Insulin-dependent diabetes. 8. Hypertension. PLAN: Antibiotics to cover nosocomial infection. IV Lasix. Daily weight. Follow up chest CT. Inhaled bronchodilators. Pancultures, influenza screen. Quantify hemoptysis. TAMELA LOMELI M.D. [id number]
--- NOTE | 2018-10-21 14:31 | CON.CARD ---
Consult Consult Specialty:: Cardiology - History of Present Illness History of Present Illness: 58 F with h/o systolic CHF EF 30-35% last seen in cardiology clinic in 07/2018 cardiac cath without CAD, currently on Aldactone, lasix and Coreg, DM presenting to ED with fever, cough, and leg pain. At baseline ambulates 2-3 blocks limited by SOB. Pt in ED was incidentally found to have fever 103. Complaing of hemoptosis CXR with mild congestion. Possible PNA. ECG NSR septal PA. - History Source History Provided By: Patient, Medical Record - Past Medical History Cardio/Vascular: Yes: CHF, HTN, Hyperlipdemia. No: AFIB, CAD Pulmonary: Yes: Asthma, COPD, O2 Dependent. No: Pneumonia, Previously Intubated , Pulmonary Embolus, Pulmonary Fibrosis, Sleep Apnea Gastrointestinal: Yes: GERD. No: Cancer Renal/: Yes: Renal Inusuff ...: No Endocrine: Yes: Diabetes Mellitus - Alcohol/Substance Use Hx Alcohol Use: No History of Substance Use: reports: None - Smoking History Smoking history: Former smoker Have you smoked in the past 12 months: Yes Aproximately how many cigarettes per day: 10 If you are a former smoker, when did you quit?: 3 WEEKS AGO - Social History Usual Living Arrangement: With Spouse ADL: Independent History of Recent Travel: No Home Medications - Allergies Allergies/Adverse Reactions: Allergies Allergy/AdvReac Type Severity Reaction Status Date / Time No Known Allergies Allergy Verified 10/11/18 19:50 - Home Medications Home Medications: Ambulatory Orders Albuterol 2.5/Ipratropium 0.5 [Duoneb -] 1 neb NEB Q4H PRN #180 amp 05/03/17 Atorvastatin Ca [Lipitor] 10 mg PO HS #30 tab 05/03/17 Linaclotide [Linzess] 145 mcg PO DAILY #30 cap 05/03/17 Montelukast Na [Singulair -] 10 mg PO HS #30 tab 05/03/17 Esomeprazole Magnesium [Nexium 24Hr] 20 mg PO DAILY 04/20/18 Carvedilol [Coreg -] 6.25 mg PO BID #60 tablet 04/24/18 Furosemide [Lasix -] 40 mg PO DAILY #30 tablet 04/24/18 Insulin (Levemir) [Levemir Vial] 15 units SQ ACBK units 04/24/18 Losartan Potassium [Cozaar -] 25 mg PO DAILY #30 tablet 04/24/18 Magnesium Hydrox 2400MG/30Ml [Milk of Magnesia -] 30 ml PO Q8H PRN #1 bot Polyethylene Glycol 3350 [Miralax 119 gm Btl -] 17 gm PO DAILY #1 bottle Sennosides [Senna -] 1 tab PO HS #30 tablet 05/02/18 Dapagliflozin Propanediol [Farxiga] 10 mg PO DAILY 09/20/18 Albuterol 0.083% Nebulizer Chayito [Ventolin 0.083% Nebulizer Soln -] 1 amp NEB Q4H PRN amp 09/26/18 Insulin Sliding Scale [Novolog Vial Sliding Scale -] 1 vial SQ ASDIR 10/20/18 Nicotine Patch [Nicoderm Patch -] 1 patch TD DAILY 10/20/18 Family Disease History - Family Disease History Family Disease History: Diabetes: Father, Brother Review of Systems - Review of Systems Constitutional: denies: Chills Eyes: reports: No Symptoms HENT: denies: Difficult Swallowing, Ocular Prosthesis Neck: reports: No Symptoms Cardiovascular: reports: Edema, Shortness of Breath. denies: Chest Pain, Palpitations Respiratory: reports: Cough, SOB, SOB on Exertion Vital Signs: Vital Signs Temperature 97.4 F L 10/21/18 09:59 Pulse Rate 93 H 10/21/18 09:59 Respiratory Rate 22 H 10/21/18 09:59 Blood Pressure 132/88 10/21/18 09:59 O2 Sat by Pulse Oximetry (%) 94 L 10/21/18 09:59 Constitutional: Yes: Well Nourished, No Distress Eyes: Yes: Conjunctiva Clear HENT: Yes: Atraumatic, Normocephalic Neck: Yes: Supple, Trachea Midline Respiratory: Yes: Rales Gastrointestinal: Yes: Normal Bowel Sounds, Soft Cardiovascular: Yes: Regular Rate and Rhythm JVD: Yes Heart Sounds: Yes: S1, S2 Murmur: No: Systolic Murmur, Diastolic Murmur Edema: No - Other Data Labs, Other Data: CBC, BMP 10/21/18 06:10 10/21/18 06:10 INR, PTT INR 1.08 (0.83-1.09) 10/20/18 11:00 Troponin, BNP 10/21/18 06:10 Troponin I 0.04 B-Natriuretic Peptide 5525.9 H Troponin, BNP 10/21/18 06:10 Troponin I 0.04 B-Natriuretic Peptide 5525.9 H Imaging - Results Chest X-ray: Image Reviewed Problem List - Problems (1) CHF (congestive heart failure) Code(s): I50.9 - HEART FAILURE, UNSPECIFIED Qualifiers: Heart failure type: unspecified Heart failure chronicity: unspecified Qualified Code(s): I50.9 - Heart failure, unspecified Assessment/Plan NICM EF 30-35% NYHA class III. Adm with possible PNA and CHF exacerbation. At home not on ACEI/ARB Lasix 40mg IV BID Add aldactone 25mg qd Coreg 6.25 bid Losartan 25mg qd Out patient referral for prophylactic AICD.
--- NOTE | 2018-10-21 19:33 | PN ---
Progress Note (short form) - Note Progress Note: ID CONSULT DICTATED R/O HCAP AWAIT C/S EMPIRIC ZOSYN
--- NOTE | 2018-10-21 21:29 | CONSULT ---
Consult Consult Specialty:: endocrine Referred by:: dr.annabi villanueva Reason for Consultation:: hyperglycemia - History of Present Illness Chief Complaint: high sugars History of Present Illness: 58 F with h/o DM 2,COPD (2.5 L O2 at home), CHF (on 40 mg lasix), HTN, HLD, IDDM presenting to ED with fever, cough, and leg pain. Pt initially presented to ED with lower back pain radiating to her R leg. Pt state she has high sugars ,poor appetite,cough,wheezing,short of breath ,chest pain.denies fever chills,n/ v - Past Medical History Cardio/Vascular: Yes: CHF, HTN, Hyperlipdemia. No: AFIB, CAD Pulmonary: Yes: Asthma, COPD, O2 Dependent. No: Pneumonia, Previously Intubated , Pulmonary Embolus, Pulmonary Fibrosis, Sleep Apnea Gastrointestinal: Yes: GERD. No: Cancer Renal/: Yes: Renal Inusuff ...: No Endocrine: Yes: Diabetes Mellitus - Alcohol/Substance Use Hx Alcohol Use: No History of Substance Use: reports: None - Smoking History Smoking history: Former smoker Have you smoked in the past 12 months: Yes Aproximately how many cigarettes per day: 10 If you are a former smoker, when did you quit?: 3 WEEKS AGO - Social History Usual Living Arrangement: With Spouse ADL: Independent History of Recent Travel: No Home Medications - Allergies Allergies/Adverse Reactions: Allergies Allergy/AdvReac Type Severity Reaction Status Date / Time No Known Allergies Allergy Verified 10/11/18 19:50 - Home Medications Home Medications: Ambulatory Orders Albuterol 2.5/Ipratropium 0.5 [Duoneb -] 1 neb NEB Q4H PRN #180 amp 05/03/17 Atorvastatin Ca [Lipitor] 10 mg PO HS #30 tab 05/03/17 Linaclotide [Linzess] 145 mcg PO DAILY #30 cap 05/03/17 Montelukast Na [Singulair -] 10 mg PO HS #30 tab 05/03/17 Esomeprazole Magnesium [Nexium 24Hr] 20 mg PO DAILY 04/20/18 Carvedilol [Coreg -] 6.25 mg PO BID #60 tablet 04/24/18 Furosemide [Lasix -] 40 mg PO DAILY #30 tablet 04/24/18 Insulin (Levemir) [Levemir Vial] 15 units SQ ACBK units 04/24/18 Losartan Potassium [Cozaar -] 25 mg PO DAILY #30 tablet 04/24/18 Magnesium Hydrox 2400MG/30Ml [Milk of Magnesia -] 30 ml PO Q8H PRN #1 bot Polyethylene Glycol 3350 [Miralax 119 gm Btl -] 17 gm PO DAILY #1 bottle Sennosides [Senna -] 1 tab PO HS #30 tablet 05/02/18 Dapagliflozin Propanediol [Farxiga] 10 mg PO DAILY 09/20/18 Albuterol 0.083% Nebulizer Chayito [Ventolin 0.083% Nebulizer Soln -] 1 amp NEB Q4H PRN amp 09/26/18 Insulin Sliding Scale [Novolog Vial Sliding Scale -] 1 vial SQ ASDIR 10/20/18 Nicotine Patch [Nicoderm Patch -] 1 patch TD DAILY 10/20/18 Family Disease History - Family Disease History Family Disease History: Diabetes: Father, Brother Review of Systems - Review of Systems Constitutional: reports: Loss of Appetite Eyes: reports: Blurred Vision HENT: reports: No Symptoms Neck: reports: No Symptoms Cardiovascular: reports: Palpitations, Shortness of Breath Respiratory: reports: Exercise Intolerance, Wheezing Gastrointestinal: reports: Bloating, Constipation Genitourinary: reports: Frequency Musculoskeletal: reports: Extremity Pain, Joint Pain, Muscle Cramps, Muscle Weakness Neurological: reports: Numbness, Weakness Endocrine: reports: Unexplained Weight Gain Physical Exam Vital Signs: Vital Signs Temperature 98 F 10/21/18 18:13 Pulse Rate 93 H 10/21/18 18:13 Respiratory Rate 20 10/21/18 18:13 Blood Pressure 129/92 10/21/18 18:13 O2 Sat by Pulse Oximetry (%) 94 L 10/21/18 09:59 Constitutional: Yes: Anxious Eyes: Yes: Conjunctiva Clear HENT: Yes: Normocephalic Neck: Yes: Trachea Midline Cardiovascular: Yes: Tachycardia Respiratory: Yes: Rhonchi, SOB on Exertion, Tachypnea, Wheezes Gastrointestinal: Yes: Abdomen, Obese ...Rectal Exam: Yes: Deferred Renal/: Yes: WNL Breast(s): Yes: WNL Musculoskeletal: Yes: Joint Swelling, Muscle Pain, Muscle Weakness Extremities: Yes: WNL Edema: Yes Edema: LLE: 1+, RLE: 1+ Neurological: Yes: Alert, Oriented Labs: CBC, BMP 10/21/18 06:10 10/21/18 06:10 Problem List - Problems (1) Diabetes Code(s): E11.9 - TYPE 2 DIABETES MELLITUS WITHOUT COMPLICATIONS Qualifiers: Chronic kidney disease stage: stage 2 (mild) (2) CHF (congestive heart failure) Code(s): I50.9 - HEART FAILURE, UNSPECIFIED Qualifiers: Heart failure type: unspecified Heart failure chronicity: unspecified Qualified Code(s): I50.9 - Heart failure, unspecified (3) COPD (chronic obstructive pulmonary disease) Code(s): J44.9 - CHRONIC OBSTRUCTIVE PULMONARY DISEASE, UNSPECIFIED Qualifiers: COPD type: unspecified COPD Qualified Code(s): J44.9 - Chronic obstructive pulmonary disease, unspecified (4) Consolidation of right upper lobe Code(s): J18.1 - LOBAR PNEUMONIA, UNSPECIFIED ORGANISM (5) Fever Code(s): R50.9 - FEVER, UNSPECIFIED (6) Radiculopathy of leg Code(s): M54.10 - RADICULOPATHY, SITE UNSPECIFIED (7) Abdominal pain Code(s): R10.9 - UNSPECIFIED ABDOMINAL PAIN (8) Abnormal liver enzymes Code(s): R74.8 - ABNORMAL LEVELS OF OTHER SERUM ENZYMES Assessment/Plan Current Active Problems CHF (congestive heart failure) (Acute) COPD (chronic obstructive pulmonary disease) (Acute) Consolidation of right upper lobe (Acute) Diabetes (Acute) Fever (Acute) Radiculopathy of leg (Acute) Sepsis (Acute) dm 2 uncontrolled Abnormal Lab Results 10/21/18 10/21/18 10/21/18 06:10 06:10 12:25 WBC 19.2 H Hct 46.7 H RDW 17.4 H Absolute Neuts (auto) 18.6 H Neutrophils % 97.2 H Neutrophils % (Manual) 97.0 H Lymphocytes % 2.2 L D Lymphocytes % (Manual) 1.0 L D Monocytes % 0.5 L D Monocytes % (Manual) 0 L D BUN 26 H Random Glucose 341 H* Calcium 7.7 L Alkaline Phosphatase 170 H C-Reactive Protein 15.1 H B-Natriuretic Peptide 5525.9 H Total Protein 5.9 L Albumin 2.7 L Laboratory Results - last 24 hr 10/20/18 10/21/18 10/21/18 21:11 05:06 06:10 WBC 19.2 H RBC 5.07 Hgb 15.3 Hct 46.7 H MCV 92.1 MCH 30.1 MCHC 32.7 RDW 17.4 H Plt Count 233 MPV 8.0 Absolute Neuts (auto) 18.6 H Neutrophils % 97.2 H Neutrophils % (Manual) 97.0 H Band Neutrophils % 2.0 Lymphocytes % 2.2 L D Lymphocytes % (Manual) 1.0 L D Monocytes % 0.5 L D Monocytes % (Manual) 0 L D Eosinophils % 0.0 D Eosinophils % (Manual) 0.0 Basophils % 0.1 Basophils % (Manual) 0.0 Myelocytes % (Man) 0 Promyelocytes % (Man) 0 Blast Cells % (Manual) 0 Nucleated RBC % 0 Metamyelocytes 0 D Hypochromia 0 Platelet Estimate Normal Polychromasia 0 Poikilocytosis 0 Anisocytosis 0 Microcytosis 0 Macrocytosis 0 ESR Sodium Potassium Chloride Carbon Dioxide Anion Gap BUN Creatinine Creat Clearance w eGFR POC Glucometer 321 339 Random Glucose Calcium Magnesium Total Bilirubin AST ALT Alkaline Phosphatase Creatine Kinase Troponin I C-Reactive Protein B-Natriuretic Peptide Total Protein Albumin 10/21/18 10/21/18 10/21/18 06:10 11:45 12:25 WBC RBC Hgb Hct MCV MCH MCHC RDW Plt Count MPV Absolute Neuts (auto) Neutrophils % Neutrophils % (Manual) Band Neutrophils % Lymphocytes % Lymphocytes % (Manual) Monocytes % Monocytes % (Manual) Eosinophils % Eosinophils % (Manual) Basophils % Basophils % (Manual) Myelocytes % (Man) Promyelocytes % (Man) Blast Cells % (Manual) Nucleated RBC % Metamyelocytes Hypochromia Platelet Estimate Polychromasia Poikilocytosis Anisocytosis Microcytosis Macrocytosis ESR Sodium 138 Potassium 4.3 Chloride 98 Carbon Dioxide 31 Anion Gap 9 BUN 26 H Creatinine 1.1 Creat Clearance w eGFR 51.20 POC Glucometer 417 Random Glucose 341 H* Calcium 7.7 L Magnesium 2.2 Total Bilirubin 0.9 AST 16 ALT 28 Alkaline Phosphatase 170 H Creatine Kinase 49 Troponin I 0.04 C-Reactive Protein 15.1 H B-Natriuretic Peptide 5525.9 H Total Protein 5.9 L Albumin 2.7 L 10/21/18 10/21/18 12:25 16:48 WBC RBC Hgb Hct MCV MCH MCHC RDW Plt Count MPV Absolute Neuts (auto) Neutrophils % Neutrophils % (Manual) Band Neutrophils % Lymphocytes % Lymphocytes % (Manual) Monocytes % Monocytes % (Manual) Eosinophils % Eosinophils % (Manual) Basophils % Basophils % (Manual) Myelocytes % (Man) Promyelocytes % (Man) Blast Cells % (Manual) Nucleated RBC % Metamyelocytes Hypochromia Platelet Estimate Polychromasia Poikilocytosis Anisocytosis Microcytosis Macrocytosis ESR 11 Sodium Potassium Chloride Carbon Dioxide Anion Gap BUN Creatinine Creat Clearance w eGFR POC Glucometer 401 Random Glucose Calcium Magnesium Total Bilirubin AST ALT Alkaline Phosphatase Creatine Kinase Troponin I C-Reactive Protein B-Natriuretic Peptide Total Protein Albumin plan: bgm q4h levemir 50 units am will taper as needed for steroid requirements
[2018-10-21] MEDS: MONTELUKAST NA 10 MG TABLET PO SCH (21:37)
[2018-10-21] MEDS: ATORVASTATIN CA 10 MG TABLET (FP) PO SCH (21:37)
[2018-10-21] MEDS: SENNOSIDES 8.6MG TABLET (FP) PO SCH (21:37)
[2018-10-21] MEDS ORDERED: SODIUM CHLORIDE 1,000 ML IV SCH (22:00)
[2018-10-21] MEDS ORDERED: ACETAMINOPHEN 325 MG TABLET (FP) PO ONE (22:00)
[2018-10-21] MEDS ORDERED: oxyCODONE HCL 5 MG TABLET PO ONE (22:00)
[2018-10-21] MEDS ORDERED: oxyCODONE HCL 5 MG TABLET PO PRN (22:02)
[2018-10-21] MEDS ORDERED: Insulin (LOG) Aspart 100 UNITS/ML VIAL SQ ONE (22:15)
[2018-10-22] MEDS ORDERED: Insulin (LOG) Aspart 100 UNITS/ML VIAL SQ ONE (00:21)
[2018-10-22] MEDS: ALBUTEROL SO4 2.5/IPRATROPIUM 0.5 INH SOL 3 ML VIAL.NEB. NEB PRN ×2 (00:49→21:13)
[2018-10-22] MEDS ORDERED: DEXTROSE 5%-WATER - 50 ML IVPB ONE ×3 (02:19→17:23)
[2018-10-22] MEDS ORDERED: PIPERACILLIN/TAZOBACTAM 3.375 GM VIAL IVPB ONE ×3 (02:19→17:23)
[2018-10-22] MEDS: PIPERACILLIN/TAZOB 3.375 GM 3.375 GM in DEXTROSE 5%-WATER - 50 ML IVPB SCH ×3 (02:25→17:32)
[2018-10-22] MEDS: methylPREDNISolone NA SUCC 40 MG/1 ML VIAL IVPUSH SCH ×4 (02:26→22:04)
[2018-10-22] MEDS: INSULIN SLIDING SCALE (NOVOLOG) 1 VIAL SQ SCH ×6 (02:29→22:05)
[2018-10-22] MEDS: FUROSEMIDE 40 MG/4 ML INJECTABLE VIAL IVPUSH SCH ×2 (05:31→14:28)
[2018-10-22 07:05] LABS: BASO % 0.1 % (0-2.0); HEMATOCRIT 44.1 % (32.4-45.2); HEMOGLOBIN 14.5 GM/dL (10.7-15.3); LYMPH % 2.7 % (8-40); MCH 29.9 pg (25.7-33.7); MCHC 32.8 g/dl (32.0-36.0); MEAN CELL VOLUME 91.2 fl (80-96); MONO % 2.6 % (3.8-10.2); NEUT % 94.6 % (42.8-82.8); PLATELET COUNT 239 K/MM3 (134-434); RBC 4.84 M/mm3 (3.60-5.2); RDW 17.2 % (11.6-15.6); WHITE BLOOD COUNT 19.5 K/mm3 (4.0-10.0)
[2018-10-22 07:36] LABS: ALBUMIN 2.8 g/dl (3.4-5.0); ALK PHOS 195 U/L (45-117); ANION GAP 8 MMOL/L (8-16); BILIRUBIN,TOTAL 0.7 mg/dL (0.2-1); BLOOD UREA NITROGEN 40 mg/dL (7-18); CALCIUM 7.8 mg/dL (8.5-10.1); CHLORIDE 101 mmol/L (98-107); CO2 31 mmol/L (21-32); CREATININE 1.1 mg/dL (0.55-1.3); GLUCOSE,RANDOM 155 mg/dL (74-106); POTASSIUM 3.9 mmol/L (3.5-5.1); SGOT/AST 12 U/L (15-37); SGPT/ALT 26 U/L (13-61); SODIUM 140 mmol/L (136-145); TOT PROT 6.2 g/dl (6.4-8.2)
[2018-10-22] MEDS: INSULIN (LEVEMIR) 100 UNITS/ML UNITS SQ SCH ×2 (08:40→09:27)
[2018-10-22] MEDS ORDERED: PT OWN MED DRAWER 7, Y5N ONE (09:00)
[2018-10-22] MEDS: HEPARIN NA (PORCINE) 5,000 UNITS/ML 1ML VIAL SQ SCH ×2 (09:12→22:05)
[2018-10-22] MEDS: LOSARTAN POTASSIUM 25 MG TABLET PO SCH (09:15)
[2018-10-22] MEDS: NICOTINE 7 MG/24 HOURS TOPICAL PATCH TD SCH (09:16)
[2018-10-22] MEDS: CARVEDILOL 6.25 MG TABLET (FP) PO SCH ×2 (09:16→22:05)
[2018-10-22] MEDS: SPIRONOLACTONE 25 MG TABLET (FP) PO SCH (09:17)
[2018-10-22] MEDS: POLYETHYLENE GLYCOL 3350 119 GM BTL PO SCH ×2 (09:17→21:07)
--- NOTE | 2018-10-22 09:30 | CONSULT ---
Consult - text type - Consultation Consultation Note: Neurology History of Present Illness: Coverage for Dr. Crowell 58 F with h/o COPD (2.5 L O2 at home), CHF (on 40 mg lasix), HTN, HLD, IDDM presenting to ED with fever, cough, and leg pain. Pt initially presented to ED with lower back pain radiating to her R leg. Pt stated this pain has been chronic for years. However, over the past few days, the pain has worsened. Endorsed pain all throughout her leg with ambulation. Pt denies any recent falls or injuries. Pt denies any limitation in her ROM. Pt in ED was incidentally found to have fever 103. Pt denies any subjective fevers, though she endorses cough that is productive. Denies CP/SOB. Denies abdominal pain. Denies dysuria. Is being treated for infection. MRI L spine completed and reviewed and discussed in detail with patient. L4/L5 herniation with moderate central stenosis along with neural foramina narrowing noted. Is getting pain medication, discussed trial of gabapentin along with this and she was in agreement. Difficulty with ambulation and antalgic gait. - Past Medical History Cardiovascular: Yes: CHF, HTN, Hyperlipdemia. No: AFIB, CAD Pulmonary: Yes: Asthma, COPD, O2 Dependent. No: Pneumonia, Previously Intubated , Pulmonary Embolus, Pulmonary Fibrosis, Sleep Apnea Gastrointestinal: Yes: GERD. No: Cancer Renal/: Yes: Renal Inusuff ...: No Endocrine: Yes: Diabetes Mellitus - Smoking History Smoking history: Former smoker Have you smoked in the past 12 months: Yes Aproximately how many cigarettes per day: 10 If you are a former smoker, when did you quit?: 3 WEEKS AGO - Alcohol/Substance Use Hx Alcohol Use: No History of Substance Use: reports: None - Social History ADL: Independent History of Recent Travel: No Home Medications - Allergies Allergies/Adverse Reactions: Allergies Allergy/AdvReac Type Severity Reaction Status Date / Time No Known Allergies Allergy Verified 10/11/18 19:50 - Home Medications Home Medications: Ambulatory Orders Albuterol 2.5/Ipratropium 0.5 [Duoneb -] 1 neb NEB Q4H PRN #180 amp 05/03/17 Atorvastatin Ca [Lipitor] 10 mg PO HS #30 tab 05/03/17 Linaclotide [Linzess] 145 mcg PO DAILY #30 cap 05/03/17 Montelukast Na [Singulair -] 10 mg PO HS #30 tab 05/03/17 Esomeprazole Magnesium [Nexium 24Hr] 20 mg PO DAILY 04/20/18 Carvedilol [Coreg -] 6.25 mg PO BID #60 tablet 04/24/18 Furosemide [Lasix -] 40 mg PO DAILY #30 tablet 04/24/18 Insulin (Levemir) [Levemir Vial] 15 units SQ ACBK units 04/24/18 Losartan Potassium [Cozaar -] 25 mg PO DAILY #30 tablet 04/24/18 Magnesium Hydrox 2400MG/30Ml [Milk of Magnesia -] 30 ml PO Q8H PRN #1 bot Polyethylene Glycol 3350 [Miralax 119 gm Btl -] 17 gm PO DAILY #1 bottle Sennosides [Senna -] 1 tab PO HS #30 tablet 05/02/18 Dapagliflozin Propanediol [Farxiga] 10 mg PO DAILY 09/20/18 Albuterol 0.083% Nebulizer Chayito [Ventolin 0.083% Nebulizer Soln -] 1 amp NEB Q4H PRN amp 09/26/18 Insulin Sliding Scale [Novolog Vial Sliding Scale -] 1 vial SQ ASDIR 10/20/18 Nicotine Patch [Nicoderm Patch -] 1 patch TD DAILY 10/20/18 Family Disease History - Family Disease History Family Disease History: Diabetes: Father, Brother Review of Systems - Review of Systems Constitutional: reports: Fever, Weakness Cardiovascular: denies: Chest Pain Respiratory: reports: Cough, SOB on Exertion Gastrointestinal: denies: Abdominal Pain Genitourinary: reports: No Symptoms Musculoskeletal: reports: Back Pain, Extremity Pain, Muscle Weakness Neurological: reports: Numbness (-leg) Physical Examination Vital Signs Period Temp Pulse Resp BP Sys/Plasencia Pulse Ox Last 24 Hr 97.4 F-98.1 F 93-105 18-22 125-135/77-92 94-94 Gen: Awake, alert, responds to questions Card: RRR, nml S1,S2 Resp: Normal symmetric effort, lungs clear to auscultation Abdomen: Soft, nontender, bowel sounds active Musculoskeletal: Adequate range of motion without significant deformity Head atraumatic and normocephalic CN: PERRL, EOMI intact, no apparent facial droop, no abnormalities in facial sensation, palate elevates, uvula and tongue midline Motor: 4-/5 in RLE, 5-/5 in LLE Sensory: Intact to Temperature, light touch, and pinprick in all extremities Reflexes: 1+ biceps, brachioradialis, patellar, achillies Coordination: Intact on [id number] testing Gait: Antlagic, favoring R CBCD WBC 19.5 K/mm3 (4.0-10.0) H 10/22/18 06:15 RBC 4.84 M/mm3 (3.60-5.2) 10/22/18 06:15 Hgb 14.5 GM/dL (10.7-15.3) 10/22/18 06:15 Hct 44.1 % (32.4-45.2) 10/22/18 06:15 MCV 91.2 fl (80-96) 10/22/18 06:15 MCHC 32.8 g/dl (32.0-36.0) 10/22/18 06:15 RDW 17.2 % (11.6-15.6) H 10/22/18 06:15 Plt Count 239 K/MM3 (134-434) 10/22/18 06:15 MPV 8.0 fl (7.5-11.1) 10/22/18 06:15 CMP Sodium 140 mmol/L (136-145) 10/22/18 06:15 Potassium 3.9 mmol/L (3.5-5.1) 10/22/18 06:15 Chloride 101 mmol/L (98-107) 10/22/18 06:15 Carbon Dioxide 31 mmol/L (21-32) 10/22/18 06:15 Anion Gap 8 MMOL/L (8-16) 10/22/18 06:15 BUN 40 mg/dL (7-18) H 10/22/18 06:15 Creatinine 1.1 mg/dL (0.55-1.3) 10/22/18 06:15 Creat Clearance w eGFR 51.20 (>60) 10/22/18 06:15 Random Glucose 155 mg/dL (74-106) H 10/22/18 06:15 Calcium 7.8 mg/dL (8.5-10.1) L 10/22/18 06:15 Total Bilirubin 0.7 mg/dL (0.2-1) 10/22/18 06:15 AST 12 U/L (15-37) L 10/22/18 06:15 ALT 26 U/L (13-61) 10/22/18 06:15 Alkaline Phosphatase 195 U/L (45-117) H 10/22/18 06:15 Total Protein 6.2 g/dl (6.4-8.2) L 10/22/18 06:15 Albumin 2.8 g/dl (3.4-5.0) L 10/22/18 06:15 CARDIAC ENZYMES Creatine Kinase 49 U/L (26-192) 10/21/18 06:10 Troponin I 0.04 ng/ml (0.00-0.05) 10/21/18 06:10 Plan: 58 F with h/o COPD (2.5 L O2 at home), CHF (on 40 mg lasix), HTN, HLD, IDDM presenting to ED with fever, cough, and leg pain. Pt initially presented to ED with lower back pain radiating to her R leg. Pt stated this pain has been chronic for years. However, over the past few days, the pain has worsened. Endorsed pain all throughout her leg with ambulation. Pt denies any recent falls or injuries. Pt denies any limitation in her ROM. Pt in ED was incidentally found to have fever 103. Pt denies any subjective fevers, though she endorses cough that is productive. Denies CP/SOB. Denies abdominal pain. Denies dysuria. Is being treated for infection. MRI L spine completed and reviewed and discussed in detail with patient. L4/L5 herniation with moderate central stenosis along with neural foramina narrowing noted. Is getting pain medication, discussed trial of gabapentin along with this and she was in agreement. Difficulty with ambulation and antalgic gait. Fall precautions needed, DVT ppx. Physical therapy as tolerated. Pain mgmt. Continue infectious mgmt. Monitor DM, maintain euglycemic range.
[2018-10-22 09:37] LABS: ANISOCYTOSIS 0; MACROCYTOSIS 0; PLATELET ESTIMATE NORMAL
[2018-10-22] MEDS ORDERED: GABAPENTIN 300 MG CAPSULE (FP) PO SCH (10:00)
--- NOTE | 2018-10-22 10:31 | EKG ---
Test Reason : Blood Pressure : / mmHG Vent. Rate : 110 BPM Atrial Rate : 110 BPM P-R Int : 168 ms QRS Dur : 090 ms QT Int : 380 ms P-R-T Axes : 033 102 081 degrees QTc Int : 514 ms SINUS TACHYCARDIA WITH PREMATURE ATRIAL COMPLEXES WITH ABERRANT CONDUCTION PREMATURE VENTRICULAR COMPLEXES POSSIBLE LEFT ATRIAL ENLARGEMENT BORDERLINE ECG WHEN COMPARED WITH ECG OF 20-OCT-2018 11:23, ABERRANT CONDUCTION IS NOW PRESENT Confirmed by DIAMANTE MANSFIELD, MARCUS ([id number]) on 10/22/2018 10:31:28 AM Referred By: Confirmed By:MARCUS BOBBY MD
--- NOTE | 2018-10-22 10:54 | CONS ---
DATE OF CONSULTATION: DATE OF DICTATION: 10/22/2018 INFECTIOUS DISEASE CONSULTATION The patient is a 58-year-old female who was evaluated for possible pneumonia. She was recently hospitalized at [facility] from August 10 through October 17 with acute on chronic congestive heart failure. She is now readmitted on October 20, 2018, with increasing shortness of breath, productive cough, hemoptysis, and fever. Chest x-ray showed increased markings right lung field. Patient also complained of right lower extremity pain. Her hospital course has been significant for fever to 103.7. At the present time, she is awake and alert. She complains of cough productive of blood-streaked sputum. She denies any chest pain or shortness of breath. She was hospitalized. Patient recently stopped smoking. She has a strong tobacco use history. No recent travel or known ill contacts. 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 ALLERGIES: No known allergies. MEDICATIONS: Include Tylenol, albuterol, Lipitor, carvedilol, Lasix, Neurontin, insulin, methylprednisolone, oxycodone. SOCIAL HISTORY: Positive tobacco use history, recently stopped. Originally from [place]. Has been living in the [place] for years. No recent travel. SYSTEM REVIEW: Neurologic: No loss of consciousness, seizure activity, focal weakness. Cardiac: Negative chest pain or palpitations. Respiratory: As per HPI. Gastrointestinal: Negative vomiting or diarrhea. Genitourinary: Negative for urinary tract infection. LABORATORY DATA: White count 19.2 with left shift, hematocrit 46.7, platelet count 233, BUN 26, creatinine 1.1, glucose 341. Urinalysis 3-5 white cells. Influenza swab negative. PHYSICAL EXAMINATION: General: She is awake and alert, obese, no acute distress, breathing is nonlabored. Vital Signs: Temperature 98.1, blood pressure 135/84, pulse 95 regular, respirations 18 per minute. Eyes: Sclerae anicteric. Heart: Sounds S1, S2. Lungs: Course rhonchi bilaterally. Abdomen: Obese, soft, nontender. Extremities: 1+ edema. IMPRESSION: 1. Rule out healthcare-acquired pneumonia. 2. Acute exacerbation of chronic obstructive pulmonary disease. 3. Insulin-dependent diabetes mellitus. 4. Uncontrolled diabetes mellitus. PLAN: Pending sepsis workup, empiric coverage in nosocomial respiratory tract infections with Zosyn 3.375 g IV piggyback every 8 hours. Sputum culture, urine legionella, and pneumococcal antigens. Will follow. Thank you for the kind referral. BEN SANDOVAL M.D. [id number]
--- NOTE | 2018-10-22 11:26 | PN ---
Progress Note, Physician Chief Complaint: Sepsis Fever Radiculopathy of R leg History of Present Illness: Previous notes and events reviewed awake and alert NAD complain of SOB with exertion - Current Medication List Current Medications: Active Medications Acetaminophen (Tylenol -) 325 mg PO Q6H PRN PRN Reason: PAIN LEVEL 6-10 Albuterol/Ipratropium (Duoneb -) 1 amp NEB Q4H PRN PRN Reason: ASTHMA Last Admin: 10/22/18 00:49 Dose: 1 amp Atorvastatin Calcium (Lipitor -) 10 mg PO HS [facility] Last Admin: 10/21/18 21:37 Dose: 10 mg Carvedilol (Coreg -) 6.25 mg PO BID [facility] Last Admin: 10/22/18 09:16 Dose: 6.25 mg Furosemide (Lasix Injection -) 40 mg IVPUSH BID@0600,1400 [facility] Last Admin: 10/22/18 05:31 Dose: 40 mg Gabapentin (Neurontin -) 300 mg PO BID [facility] Heparin Sodium (Porcine) (Heparin -) 5,000 unit SQ BID [facility] Last Admin: 10/22/18 09:12 Dose: 5,000 unit Piperacillin Sod/Tazobactam (Sod 3.375 gm/ Dextrose) 50 mls @ 100 mls/hr IVPB Q8H-IV [facility]; Protocol Last Admin: 10/22/18 09:16 Dose: 100 mls/hr Insulin Aspart (Novolog Vial Sliding Scale -) 1 vial SQ Q4HPO [facility]; Protocol Last Admin: 10/22/18 09:19 Dose: 5 units Insulin Detemir (Levemir Vial) 50 units SQ ACBK [facility] Last Admin: 10/22/18 09:27 Dose: 50 units Losartan Potassium (Cozaar -) 25 mg PO DAILY [facility] Last Admin: 10/22/18 09:15 Dose: 25 mg Methylprednisolone Sodium Succinate (Solu-Medrol -) 40 mg IVPUSH Q6H-IV [facility] Last Admin: 10/22/18 08:42 Dose: 40 mg Montelukast Sodium (Singulair -) 10 mg PO HS [facility] Last Admin: 10/21/18 21:37 Dose: 10 mg Nicotine (Nicoderm Patch -) 7 mg TD DAILY [facility] Last Admin: 10/22/18 09:16 Dose: 7 mg Oxycodone HCl (Roxicodone -) 5 mg PO Q6H PRN PRN Reason: PAIN LEVEL 6-10 Polyethylene Glycol (Miralax (For Daily Use) -) 17 gm PO BID [facility] Last Admin: 10/22/18 09:17 Dose: 17 gm Senna (Senna -) 1 tab PO HS [facility] Last Admin: 10/21/18 21:37 Dose: 1 tab Spironolactone (Aldactone -) 25 mg PO DAILY [facility] Last Admin: 10/22/18 09:17 Dose: 25 mg - Objective Vital Signs: Vital Signs Temperature 97.2 F L 10/22/18 08:00 Pulse Rate 103 H 10/22/18 08:00 Respiratory Rate 20 10/22/18 08:00 Blood Pressure 137/107 H 10/22/18 08:00 O2 Sat by Pulse Oximetry (%) 98 10/22/18 09:32 Constitutional: Yes: No Distress, Calm Eyes: Yes: Conjunctiva Clear HENT: Yes: Atraumatic Cardiovascular: Yes: Tachycardia, Pulse Irregular Respiratory: Yes: On Nasal O2, Wheezes (L lung field) Musculoskeletal: Yes: Muscle Weakness Extremities: Yes: WNL Edema: No Neurological: Yes: Alert, Oriented Psychiatric: Yes: Alert, Oriented Labs: CBC, BMP 10/22/18 06:15 10/22/18 06:15 INR, PTT INR 1.08 (0.83-1.09) 10/20/18 11:00 Problem List - Problems (1) CHF (congestive heart failure) Assessment/Plan: -cardiology on board -continue tele monitoring -1L fluid restriction -daily weights -continue with lasix IVP BID, coreg losartan, spironolactone -outpatient referral for prophylactic AICD Code(s): I50.9 - HEART FAILURE, UNSPECIFIED Qualifiers: Heart failure type: unspecified Heart failure chronicity: unspecified Qualified Code(s): I50.9 - Heart failure, unspecified (2) COPD (chronic obstructive pulmonary disease) Assessment/Plan: -pulmonary on board -O2 via [place] for SOB -maintain SpO2 >90% -continue with IV methylprednisone -continue with albuterol neb tx -CXR shows congestive changes with questionable superimposed RUL infiltrate Code(s): J44.9 - CHRONIC OBSTRUCTIVE PULMONARY DISEASE, UNSPECIFIED Qualifiers: COPD type: unspecified COPD Qualified Code(s): J44.9 - Chronic obstructive pulmonary disease, unspecified (3) Diabetes Assessment/Plan: -endo on board -BGM q4h -diabetic diet -levemir 50U sq daily -ISS Code(s): E11.9 - TYPE 2 DIABETES MELLITUS WITHOUT COMPLICATIONS Qualifiers: Chronic kidney disease stage: stage 2 (mild) (4) Fever Assessment/Plan: -tylenol for temp >100F -continue with zosyn IV -ID on board Code(s): R50.9 - FEVER, UNSPECIFIED (5) Radiculopathy of leg Assessment/Plan: -neurology on board -Lumbar MRI shows disc bulge and facet arthropathy at L4-L5 with moderate central canal stenosis, superimposed right lateal disc herniation, at this level , impinging the exiting right L4 nerve root, with moderate foraminal stenosis, facet arthropathy and disc bulge at L5-S1 with superimposed disc herniation contacting both descending S1 nerve root with moderate canal stenosis -pain management -PT -fall precaution -start on gabapentin 300 BID Code(s): M54.10 - RADICULOPATHY, SITE UNSPECIFIED (6) Sepsis Assessment/Plan: -ID on board -continue with zosyn IV -currently afebrile -WBC 19.5 -preliminary UC positive for staph coagulase neg, enterococcus faecalis -sputum culture pending Code(s): A41.9 - SEPSIS, UNSPECIFIED ORGANISM Qualifiers: Sepsis type: sepsis due to unspecified organism Qualified Code(s): A41.9 - Sepsis, unspecified organism (7) HTN (hypertension) Assessment/Plan: -continue with losartan and coreg Code(s): I10 - ESSENTIAL (PRIMARY) HYPERTENSION Qualifiers: Hypertension type: essential hypertension Qualified Code(s): I10 - Essential (primary) hypertension Assessment/Plan see problem list DVT ppx
--- NOTE | 2018-10-22 11:44 | PN ---
Progress Note, Physician History of Present Illness: PULMONARY ALERT,FEELING BETTER,LESS COUGH,LESS DYSPNEIC,-HEMOPTYSIS - Current Medication List Current Medications: Active Medications Acetaminophen (Tylenol -) 325 mg PO Q6H PRN PRN Reason: PAIN LEVEL 6-10 Albuterol/Ipratropium (Duoneb -) 1 amp NEB Q4H PRN PRN Reason: ASTHMA Last Admin: 10/22/18 00:49 Dose: 1 amp Atorvastatin Calcium (Lipitor -) 10 mg PO HS [facility] Last Admin: 10/21/18 21:37 Dose: 10 mg Carvedilol (Coreg -) 6.25 mg PO BID [facility] Last Admin: 10/22/18 09:16 Dose: 6.25 mg Furosemide (Lasix Injection -) 40 mg IVPUSH BID@0600,1400 [facility] Last Admin: 10/22/18 05:31 Dose: 40 mg Gabapentin (Neurontin -) 300 mg PO BID [facility] Last Admin: 10/22/18 11:27 Dose: Not Given Heparin Sodium (Porcine) (Heparin -) 5,000 unit SQ BID [facility] Last Admin: 10/22/18 09:12 Dose: 5,000 unit Piperacillin Sod/Tazobactam (Sod 3.375 gm/ Dextrose) 50 mls @ 100 mls/hr IVPB Q8H-IV [facility]; Protocol Last Admin: 10/22/18 09:16 Dose: 100 mls/hr Insulin Aspart (Novolog Vial Sliding Scale -) 1 vial SQ Q4HPO [facility]; Protocol Last Admin: 10/22/18 09:19 Dose: 5 units Insulin Detemir (Levemir Vial) 50 units SQ ACBK [facility] Last Admin: 10/22/18 09:27 Dose: 50 units Losartan Potassium (Cozaar -) 25 mg PO DAILY [facility] Last Admin: 10/22/18 09:15 Dose: 25 mg Methylprednisolone Sodium Succinate (Solu-Medrol -) 40 mg IVPUSH Q6H-IV [facility] Last Admin: 10/22/18 08:42 Dose: 40 mg Montelukast Sodium (Singulair -) 10 mg PO HS [facility] Last Admin: 10/21/18 21:37 Dose: 10 mg Nicotine (Nicoderm Patch -) 7 mg TD DAILY [facility] Last Admin: 10/22/18 09:16 Dose: 7 mg Oxycodone HCl (Roxicodone -) 5 mg PO Q6H PRN PRN Reason: PAIN LEVEL 6-10 Polyethylene Glycol (Miralax (For Daily Use) -) 17 gm PO BID [facility] Last Admin: 10/22/18 09:17 Dose: 17 gm Senna (Senna -) 1 tab PO HS [facility] Last Admin: 10/21/18 21:37 Dose: 1 tab Spironolactone (Aldactone -) 25 mg PO DAILY [facility] Last Admin: 10/22/18 09:17 Dose: 25 mg - Objective Vital Signs: Vital Signs Temperature 97.2 F L 10/22/18 08:00 Pulse Rate 103 H 10/22/18 08:00 Respiratory Rate 20 10/22/18 08:00 Blood Pressure 137/107 H 10/22/18 08:00 O2 Sat by Pulse Oximetry (%) 98 10/22/18 09:32 Constitutional: Yes: Well Nourished, Calm Eyes: Yes: WNL HENT: Yes: WNL Neck: Yes: WNL Cardiovascular: Yes: Regular Rate and Rhythm, S1, S2 Respiratory: Yes: Rales (BIBASIAR RALES WITH FEW SCATTERED WHEEZES) Gastrointestinal: Yes: Normal Bowel Sounds, Soft Extremities: Yes: WNL Edema: No Labs: CBC, BMP 10/22/18 06:15 10/22/18 06:15 INR, PTT INR 1.08 (0.83-1.09) 10/20/18 11:00 Problem List - Problems (1) CHF (congestive heart failure) Code(s): I50.9 - HEART FAILURE, UNSPECIFIED Qualifiers: Qualified Code(s): I50.9 - Heart failure, unspecified (2) COPD (chronic obstructive pulmonary disease) Code(s): J44.9 - CHRONIC OBSTRUCTIVE PULMONARY DISEASE, UNSPECIFIED Qualifiers: Qualified Code(s): J44.9 - Chronic obstructive pulmonary disease, unspecified (3) Consolidation of right upper lobe Code(s): J18.1 - LOBAR PNEUMONIA, UNSPECIFIED ORGANISM (4) Fever Code(s): R50.9 - FEVER, UNSPECIFIED (5) Radiculopathy of leg Code(s): M54.10 - RADICULOPATHY, SITE UNSPECIFIED (6) Acute on chronic respiratory failure with hypoxemia Code(s): J96.21 - ACUTE AND CHRONIC RESPIRATORY FAILURE WITH HYPOXIA (7) Acute on chronic systolic (congestive) heart failure Code(s): I50.23 - ACUTE ON CHRONIC SYSTOLIC (CONGESTIVE) HEART FAILURE (8) Cardiomyopathy Code(s): I42.9 - CARDIOMYOPATHY, UNSPECIFIED Qualifiers: Qualified Code(s): I42.9 - Cardiomyopathy, unspecified (9) HTN (hypertension) Code(s): I10 - ESSENTIAL (PRIMARY) HYPERTENSION Qualifiers: Qualified Code(s): I10 - Essential (primary) hypertension (10) Hemoptysis Code(s): R04.2 - HEMOPTYSIS (11) Pneumonia Code(s): J18.9 - PNEUMONIA, UNSPECIFIED ORGANISM (12) Smoker Code(s): F17.200 - NICOTINE DEPENDENCE, UNSPECIFIED, UNCOMPLICATED Assessment/Plan IMP DYSPNEA ACUTE ON CHRONIC CHF NON-ISCHEMIC CARDIOMYOPATHY WITH SEVERE LV DYSFUNCTION FEVER/HEMOPTYSIS R/O PNEUMONIA RUL COPD RLL EXT PAIN H/O TOBACCO ABUSE IDDM HTN PLAN ABX LASIX INHALED BRONCHODILATORS CHEST CT CULTURES DAILY WT QUANTIFY HEMOPTYSIS DR LOMELI Problem List - Problems (1) CHF (congestive heart failure) Code(s): I50.9 - HEART FAILURE, UNSPECIFIED Qualifiers: Heart failure type: unspecified Heart failure chronicity: unspecified Qualified Code(s): I50.9 - Heart failure, unspecified (2) COPD (chronic obstructive pulmonary disease) Code(s): J44.9 - CHRONIC OBSTRUCTIVE PULMONARY DISEASE, UNSPECIFIED Qualifiers: COPD type: unspecified COPD Qualified Code(s): J44.9 - Chronic obstructive pulmonary disease, unspecified (3) Consolidation of right upper lobe Code(s): J18.1 - LOBAR PNEUMONIA, UNSPECIFIED ORGANISM (4) Fever Code(s): R50.9 - FEVER, UNSPECIFIED (5) Radiculopathy of leg Code(s): M54.10 - RADICULOPATHY, SITE UNSPECIFIED (6) Acute on chronic respiratory failure with hypoxemia Code(s): J96.21 - ACUTE AND CHRONIC RESPIRATORY FAILURE WITH HYPOXIA (7) Acute on chronic systolic (congestive) heart failure Code(s): I50.23 - ACUTE ON CHRONIC SYSTOLIC (CONGESTIVE) HEART FAILURE (8) Cardiomyopathy Code(s): I42.9 - CARDIOMYOPATHY, UNSPECIFIED Qualifiers: Cardiomyopathy type: unspecified Qualified Code(s): I42.9 - Cardiomyopathy , unspecified (9) HTN (hypertension) Code(s): I10 - ESSENTIAL (PRIMARY) HYPERTENSION Qualifiers: Hypertension type: essential hypertension Qualified Code(s): I10 - Essential (primary) hypertension (10) Hemoptysis Code(s): R04.2 - HEMOPTYSIS (11) Pneumonia Code(s): J18.9 - PNEUMONIA, UNSPECIFIED ORGANISM (12) Smoker Code(s): F17.200 - NICOTINE DEPENDENCE, UNSPECIFIED, UNCOMPLICATED
[2018-10-22] MEDS: DULoxetine HCL 30 MG CAPSULE.DR (FP) PO SCH (17:31)
--- NOTE | 2018-10-22 17:41 | PN ---
Progress Note, Physician History of Present Illness: AWAKE, ALERT SEATED IN BED NO C/O CHEST PAIN/ DYSPNEA + COUGH NO HEMOPTYSIS TODAY TEMPS DOWN AFEBRILE CT B/L PATCHY INFILTRATES - Current Medication List Current Medications: Active Medications Acetaminophen (Tylenol -) 325 mg PO Q6H PRN PRN Reason: PAIN LEVEL 6-10 Albuterol/Ipratropium (Duoneb -) 1 amp NEB Q4H PRN PRN Reason: ASTHMA Last Admin: 10/22/18 00:49 Dose: 1 amp Atorvastatin Calcium (Lipitor -) 10 mg PO HS [facility] Last Admin: 10/21/18 21:37 Dose: 10 mg Carvedilol (Coreg -) 6.25 mg PO BID [facility] Last Admin: 10/22/18 09:16 Dose: 6.25 mg Duloxetine HCl (Cymbalta -) 30 mg PO DAILY [facility] Last Admin: 10/22/18 17:31 Dose: 30 mg Furosemide (Lasix Injection -) 40 mg IVPUSH BID@0600,1400 [facility] Last Admin: 10/22/18 14:28 Dose: 40 mg Heparin Sodium (Porcine) (Heparin -) 5,000 unit SQ BID [facility] Last Admin: 10/22/18 09:12 Dose: 5,000 unit Piperacillin Sod/Tazobactam (Sod 3.375 gm/ Dextrose) 50 mls @ 100 mls/hr IVPB Q8H-IV [facility]; Protocol Last Admin: 10/22/18 17:32 Dose: 100 mls/hr Insulin Aspart (Novolog Vial Sliding Scale -) 1 vial SQ Q4HPO [facility]; Protocol Last Admin: 10/22/18 17:32 Dose: 14 units Insulin Detemir (Levemir Vial) 50 units SQ ACBK [facility] Last Admin: 10/22/18 09:27 Dose: 50 units Losartan Potassium (Cozaar -) 25 mg PO DAILY [facility] Last Admin: 10/22/18 09:15 Dose: 25 mg Methylprednisolone Sodium Succinate (Solu-Medrol -) 40 mg IVPUSH Q6H-IV [facility] Last Admin: 10/22/18 14:28 Dose: 40 mg Montelukast Sodium (Singulair -) 10 mg PO HS [facility] Last Admin: 10/21/18 21:37 Dose: 10 mg Nicotine (Nicoderm Patch -) 7 mg TD DAILY [facility] Last Admin: 10/22/18 09:16 Dose: 7 mg Oxycodone HCl (Roxicodone -) 5 mg PO Q6H PRN PRN Reason: PAIN LEVEL 6-10 Polyethylene Glycol (Miralax (For Daily Use) -) 17 gm PO BID [facility] Last Admin: 10/22/18 09:17 Dose: 17 gm Senna (Senna -) 1 tab PO HS [facility] Last Admin: 10/21/18 21:37 Dose: 1 tab Spironolactone (Aldactone -) 25 mg PO DAILY [facility] Last Admin: 10/22/18 09:17 Dose: 25 mg - Objective Vital Signs: Vital Signs Temperature 97.4 F L 10/22/18 14:28 Pulse Rate 100 H 10/22/18 14:28 Respiratory Rate 18 10/22/18 14:28 Blood Pressure 140/99 10/22/18 14:28 O2 Sat by Pulse Oximetry (%) 98 10/22/18 09:32 Constitutional: Yes: No Distress, Obese Cardiovascular: Yes: Regular Rate and Rhythm, S1, S2 Respiratory: Yes: CTA Bilaterally Gastrointestinal: Yes: Normal Bowel Sounds, Soft, Abdomen, Obese Labs: CBC, BMP 10/22/18 06:15 10/22/18 06:15 INR, PTT INR 1.08 (0.83-1.09) 10/20/18 11:00 Assessment/Plan CHF R/O PNEUMONIA HEMOPTYSIS FEVER/ LEUKOCYTOSIS CONTINUE EMPIRIC ZOSYN
--- NOTE | 2018-10-22 18:26 | PN ---
Progress Note, Physician Chief Complaint: The patient has improved SOB. She complains of left sided chest pain with local tenderness. No palpitation. History of Present Illness: 58 year-old woman with a PMHx of DM, chronic systolic CHF EF 30-35% secondary to non-ischemic CMP admitted with fever, cough, hemotysis and leg pain. At baseline ambulates 2-3 blocks limited by SOB. Pt in ED was incidentally found to have fever 103. Complaing of hemoptysis. She has been treated for pneumonia and CHF with improvement. Atypical chest pain reported. CXR with mild congestion. Possible PNA. ECG NSR septal [place]. - Current Medication List Current Medications: Active Medications Acetaminophen (Tylenol -) 325 mg PO Q6H PRN PRN Reason: PAIN LEVEL 6-10 Albuterol/Ipratropium (Duoneb -) 1 amp NEB Q4H PRN PRN Reason: ASTHMA Last Admin: 10/22/18 00:49 Dose: 1 amp Atorvastatin Calcium (Lipitor -) 10 mg PO HS [facility] Last Admin: 10/21/18 21:37 Dose: 10 mg Carvedilol (Coreg -) 6.25 mg PO BID [facility] Last Admin: 10/22/18 09:16 Dose: 6.25 mg Duloxetine HCl (Cymbalta -) 30 mg PO DAILY [facility] Last Admin: 10/22/18 17:31 Dose: 30 mg Furosemide (Lasix Injection -) 40 mg IVPUSH BID@0600,1400 [facility] Last Admin: 10/22/18 14:28 Dose: 40 mg Heparin Sodium (Porcine) (Heparin -) 5,000 unit SQ BID [facility] Last Admin: 10/22/18 09:12 Dose: 5,000 unit Piperacillin Sod/Tazobactam (Sod 3.375 gm/ Dextrose) 50 mls @ 100 mls/hr IVPB Q8H-IV [facility]; Protocol Last Admin: 10/22/18 17:32 Dose: 100 mls/hr Insulin Aspart (Novolog Vial Sliding Scale -) 1 vial SQ Q4HPO [facility]; Protocol Last Admin: 10/22/18 17:32 Dose: 14 units Insulin Detemir (Levemir Vial) 50 units SQ ACBK [facility] Last Admin: 10/22/18 09:27 Dose: 50 units Losartan Potassium (Cozaar -) 25 mg PO DAILY [facility] Last Admin: 10/22/18 09:15 Dose: 25 mg Methylprednisolone Sodium Succinate (Solu-Medrol -) 40 mg IVPUSH Q6H-IV [facility] Last Admin: 10/22/18 14:28 Dose: 40 mg Montelukast Sodium (Singulair -) 10 mg PO HS [facility] Last Admin: 10/21/18 21:37 Dose: 10 mg Nicotine (Nicoderm Patch -) 7 mg TD DAILY [facility] Last Admin: 10/22/18 09:16 Dose: 7 mg Oxycodone HCl (Roxicodone -) 5 mg PO Q6H PRN PRN Reason: PAIN LEVEL 6-10 Polyethylene Glycol (Miralax (For Daily Use) -) 17 gm PO BID [facility] Last Admin: 10/22/18 09:17 Dose: 17 gm Senna (Senna -) 1 tab PO HS [facility] Last Admin: 10/21/18 21:37 Dose: 1 tab Spironolactone (Aldactone -) 25 mg PO DAILY [facility] Last Admin: 10/22/18 09:17 Dose: 25 mg - Objective Vital Signs: Vital Signs Temperature 97.4 F L 10/22/18 14:28 Pulse Rate 100 H 10/22/18 14:28 Respiratory Rate 18 10/22/18 14:28 Blood Pressure 140/99 10/22/18 14:28 O2 Sat by Pulse Oximetry (%) 98 10/22/18 09:32 General: Well developed. Obese and chronic ill. No acute distress. Head: Normocephalic. Atraumatic, Eyes: PERRLA, EOMI. Sclerae anicteric. Conjunctivae clear. Neck: Supple. No JVD. No bruits. Heart: Normal S1, S2: Regular rhythm and rate. No murmur. No gallop or rub. Lungs: Symmetrical air entry. Clear to auscultation. No crackle. No wheezing or rhonchi. Abdomen: Soft. Bowel sound positive. Non tender. No masses. Extremities: No edema. No clubbing or cyanosis. PD 2+, equal bilaterally. Neuro: Intact, no focal findings. AAO X3. Labs: CBC, BMP 10/22/18 06:15 10/22/18 06:15 INR, PTT INR 1.08 (0.83-1.09) 10/20/18 11:00 Assessment/Plan 58 year-old woman with a PMHx of DM, chronic systolic CHF EF 30-35% secondary to non-ischemic CMP admitted with fever, cough, hemotysis and leg pain. At baseline ambulates 2-3 blocks limited by SOB. Pt in ED was incidentally found to have fever 103. Complaing of hemoptysis. She has been treated for pneumonia and CHF with improvement. Atypical chest pain reported. CXR with mild congestion. Possible PNA. ECG NSR septal [place]. 1) Acute on chronic systolic CHF with improved dyspnea and fluid overload on IV Lasix. Continue IV Lasix for one more day to keep Os>Is. Increase carvedilol to 12.5 mg BID for better heart rate and BP control. Continue Aldactone and Losartan. Out patient referral for prophylactic AICD if LV systolic function remains poor in 2 months. 2) HTN: BP is elevated. Increase carvedilol to 12.5 mg BID. Increase further as BP tolerated for heart rate control.
[2018-10-22] MEDS: SENNOSIDES 8.6MG TABLET (FP) PO SCH (21:07)
[2018-10-22] MEDS: ATORVASTATIN CA 10 MG TABLET (FP) PO SCH (22:05)
[2018-10-22] MEDS: MONTELUKAST NA 10 MG TABLET PO SCH (22:06)
[2018-10-23] MEDS ORDERED: DEXTROSE 5%-WATER - 50 ML IVPB ONE ×3 (01:24→17:37)
[2018-10-23] MEDS ORDERED: PIPERACILLIN/TAZOBACTAM 3.375 GM VIAL IVPB ONE ×3 (01:24→17:37)
[2018-10-23] MEDS: PIPERACILLIN/TAZOB 3.375 GM 3.375 GM in DEXTROSE 5%-WATER - 50 ML IVPB SCH ×3 (02:39→17:38)
[2018-10-23] MEDS: INSULIN SLIDING SCALE (NOVOLOG) 1 VIAL SQ SCH ×6 (02:39→21:39)
[2018-10-23] MEDS: methylPREDNISolone NA SUCC 40 MG/1 ML VIAL IVPUSH SCH ×3 (02:40→21:38)
[2018-10-23] MEDS: FUROSEMIDE 40 MG/4 ML INJECTABLE VIAL IVPUSH SCH ×2 (05:52→13:57)
[2018-10-23] MEDS: CARVEDILOL 6.25 MG TABLET (FP) PO SCH ×3 (05:54→21:37)
[2018-10-23] MEDS: INSULIN (LEVEMIR) 100 UNITS/ML UNITS SQ SCH (06:44)
[2018-10-23] MEDS: ACETAMINOPHEN 325 MG TABLET (FP) PO PRN (06:46)
[2018-10-23 07:04] LABS: HEMATOCRIT 43.9 % (32.4-45.2); HEMOGLOBIN 14.5 GM/dL (10.7-15.3); MCH 30.5 pg (25.7-33.7); MEAN CELL VOLUME 92.3 fl (80-96); MEAN PLT VOLUME 8.4 fl (7.5-11.1); PLATELET COUNT 236 K/MM3 (134-434); RBC 4.75 M/mm3 (3.60-5.2); RDW 16.9 % (11.6-15.6)
[2018-10-23 07:44] LABS: ALBUMIN 2.6 g/dl (3.4-5.0); ALK PHOS 213 U/L (45-117); ANION GAP 7 MMOL/L (8-16); BILIRUBIN,TOTAL 0.6 mg/dL (0.2-1); BLOOD UREA NITROGEN 46 mg/dL (7-18); CHLORIDE 100 mmol/L (98-107); CO2 28 mmol/L (21-32); CREATININE 1.1 mg/dL (0.55-1.3); POTASSIUM 3.9 mmol/L (3.5-5.1); SGOT/AST 12 U/L (15-37); SGPT/ALT 28 U/L (13-61); SODIUM 134 mmol/L (136-145); TOT PROT 6.1 g/dl (6.4-8.2)
[2018-10-23] MEDS ORDERED: PT OWN MED DRAWER 7, Y5N ONE (07:47)
[2018-10-23 07:48] LABS: GLUCOSE,RANDOM 395 mg/dL (74-106)
--- NOTE | 2018-10-23 09:09 | PN ---
Progress Note (short form) - Note Progress Note: Neurology History of Present Illness: Coverage for Dr. Crowell 58 F with h/o COPD (2.5 L O2 at home), CHF (on 40 mg lasix), HTN, HLD, IDDM presenting to ED with fever, cough, and leg pain. Pt initially presented to ED with lower back pain radiating to her R leg. Pt stated this pain has been chronic for years. However, over the past few days, the pain has worsened. Endorsed pain all throughout her leg with ambulation. Pt denies any recent falls or injuries. Pt denies any limitation in her ROM. Pt in ED was incidentally found to have fever 103. Pt denies any subjective fevers, though she endorses cough that is productive. Denies CP/SOB. Denies abdominal pain. Denies dysuria. Is being treated for infection. MRI L spine completed and reviewed and discussed in detail with patient. L4/L5 herniation with moderate central stenosis along with neural foramina narrowing noted. Is getting pain medication, discussed trial of gabapentin with patient but notified by nurse that patient reportedly with allergy to gabapentin, therefore asked to dc order and trial of duloxetine 30mg daily instead. Reports improvement in symptoms and more mobile but still with episodes of radicular discomfort. Active Medications Acetaminophen (Tylenol -) 325 mg PO Q6H PRN PRN Reason: PAIN LEVEL 6-10 Last Admin: 10/23/18 06:46 Dose: 325 mg Albuterol/Ipratropium (Duoneb -) 1 amp NEB Q4H PRN PRN Reason: ASTHMA Last Admin: 10/22/18 21:13 Dose: 1 amp Atorvastatin Calcium (Lipitor -) 10 mg PO HS [facility] Last Admin: 10/22/18 22:05 Dose: 10 mg Carvedilol (Coreg -) 6.25 mg PO BID [facility] Last Admin: 10/23/18 05:54 Dose: 6.25 mg Duloxetine HCl (Cymbalta -) 30 mg PO DAILY [facility] Last Admin: 10/22/18 17:31 Dose: 30 mg Furosemide (Lasix Injection -) 40 mg IVPUSH BID@0600,1400 [facility] Last Admin: 10/23/18 05:52 Dose: 40 mg Heparin Sodium (Porcine) (Heparin -) 5,000 unit SQ BID [facility] Last Admin: 10/22/18 22:05 Dose: 5,000 unit Piperacillin Sod/Tazobactam (Sod 3.375 gm/ Dextrose) 50 mls @ 100 mls/hr IVPB Q8H-IV [facility]; Protocol Last Admin: 10/23/18 02:39 Dose: 100 mls/hr Insulin Aspart (Novolog Vial Sliding Scale -) 1 vial SQ Q4HPO [facility]; Protocol Last Admin: 10/23/18 06:44 Dose: 12 units Insulin Detemir (Levemir Vial) 50 units SQ ACBK [facility] Last Admin: 10/23/18 06:44 Dose: 50 units Losartan Potassium (Cozaar -) 25 mg PO DAILY [facility] Last Admin: 10/22/18 09:15 Dose: 25 mg Methylprednisolone Sodium Succinate (Solu-Medrol -) 40 mg IVPUSH Q6H-IV [facility] Last Admin: 10/23/18 02:40 Dose: 40 mg Montelukast Sodium (Singulair -) 10 mg PO HS [facility] Last Admin: 10/22/18 22:06 Dose: 10 mg Nicotine (Nicoderm Patch -) 7 mg TD DAILY [facility] Last Admin: 10/22/18 09:16 Dose: 7 mg Oxycodone HCl (Roxicodone -) 5 mg PO Q6H PRN PRN Reason: PAIN LEVEL 6-10 Last Admin: 10/23/18 06:45 Dose: 5 mg Polyethylene Glycol (Miralax (For Daily Use) -) 17 gm PO BID [facility] Last Admin: 10/22/18 21:07 Dose: Not Given Senna (Senna -) 1 tab PO HS [facility] Last Admin: 10/22/18 21:07 Dose: Not Given Spironolactone (Aldactone -) 25 mg PO DAILY [facility] Last Admin: 10/22/18 09:17 Dose: 25 mg Physical Examination Vital Signs Period Temp Pulse Resp BP Sys/Plasencia Pulse Ox Last 24 Hr 97.4 F-98.3 F 94-114 18-20 133-156/83-99 97-98 Gen: Awake, alert, responds to questions Card: RRR, nml S1,S2 Resp: Normal symmetric effort, lungs clear to auscultation Abdomen: Soft, nontender, bowel sounds active Musculoskeletal: Adequate range of motion without significant deformity Head atraumatic and normocephalic CN: PERRL, EOMI intact, no apparent facial droop, no abnormalities in facial sensation, palate elevates, uvula and tongue midline Motor: 4-/5 in RLE, 5-/5 in LLE Sensory: Intact to Temperature, light touch, and pinprick in all extremities Reflexes: 1+ biceps, brachioradialis, patellar, achillies Coordination: Intact on ewrqec-thyr-myoeoa testing Gait: Antlagic, favoring R CBCD WBC 15.0 K/mm3 (4.0-10.0) H 10/23/18 06:30 RBC 4.75 M/mm3 (3.60-5.2) 10/23/18 06:30 Hgb 14.5 GM/dL (10.7-15.3) 10/23/18 06:30 Hct 43.9 % (32.4-45.2) 10/23/18 06:30 MCV 92.3 fl (80-96) 10/23/18 06:30 MCHC 33.0 g/dl (32.0-36.0) 10/23/18 06:30 RDW 16.9 % (11.6-15.6) H 10/23/18 06:30 Plt Count 236 K/MM3 (134-434) 10/23/18 06:30 MPV 8.4 fl (7.5-11.1) 10/23/18 06:30 CMP Sodium 134 mmol/L (136-145) L 10/23/18 06:30 Potassium 3.9 mmol/L (3.5-5.1) 10/23/18 06:30 Chloride 100 mmol/L (98-107) 10/23/18 06:30 Carbon Dioxide 28 mmol/L (21-32) 10/23/18 06:30 Anion Gap 7 MMOL/L (8-16) L 10/23/18 06:30 BUN 46 mg/dL (7-18) H 10/23/18 06:30 Creatinine 1.1 mg/dL (0.55-1.3) 10/23/18 06:30 Creat Clearance w eGFR 51.20 (>60) 10/23/18 06:30 Random Glucose 395 mg/dL (74-106) H* 10/23/18 06:30 Calcium 8.0 mg/dL (8.5-10.1) L 10/23/18 06:30 Total Bilirubin 0.6 mg/dL (0.2-1) 10/23/18 06:30 AST 12 U/L (15-37) L 10/23/18 06:30 ALT 28 U/L (13-61) 10/23/18 06:30 Alkaline Phosphatase 213 U/L (45-117) H 10/23/18 06:30 Total Protein 6.1 g/dl (6.4-8.2) L 10/23/18 06:30 Albumin 2.6 g/dl (3.4-5.0) L 10/23/18 06:30 CARDIAC ENZYMES Creatine Kinase 49 U/L (26-192) 10/21/18 06:10 Troponin I 0.04 ng/ml (0.00-0.05) 10/21/18 06:10 Plan: 58 F with h/o COPD (2.5 L O2 at home), CHF (on 40 mg lasix), HTN, HLD, IDDM presenting to ED with fever, cough, and leg pain. Pt initially presented to ED with lower back pain radiating to her R leg. Pt stated this pain has been chronic for years. However, over the past few days, the pain has worsened. Endorsed pain all throughout her leg with ambulation. Pt denies any recent falls or injuries. Pt denies any limitation in her ROM. Pt in ED was incidentally found to have fever 103. Pt denies any subjective fevers, though she endorses cough that is productive. Denies CP/SOB. Denies abdominal pain. Denies dysuria. Is being treated for infection. MRI L spine completed and reviewed and discussed in detail with patient. L4/L5 herniation with moderate central stenosis along with neural foramina narrowing noted. Is getting pain medication, patient reported allergy to gabapentin, therefore cymbalta started, some improvement in pain and mobility. Consider PT. Fall precautions needed, DVT ppx. Physical therapy as tolerated. Pain mgmt. Continue infectious mgmt. Monitor DM, maintain euglycemic range.
--- NOTE | 2018-10-23 09:09 | PN ---
Progress Note, Physician - Current Medication List Current Medications: Active Medications Acetaminophen (Tylenol -) 325 mg PO Q6H PRN PRN Reason: PAIN LEVEL 6-10 Last Admin: 10/23/18 06:46 Dose: 325 mg Albuterol/Ipratropium (Duoneb -) 1 amp NEB Q4H PRN PRN Reason: ASTHMA Last Admin: 10/22/18 21:13 Dose: 1 amp Atorvastatin Calcium (Lipitor -) 10 mg PO HS [facility] Last Admin: 10/22/18 22:05 Dose: 10 mg Carvedilol (Coreg -) 6.25 mg PO BID [facility] Last Admin: 10/23/18 05:54 Dose: 6.25 mg Duloxetine HCl (Cymbalta -) 30 mg PO DAILY [facility] Last Admin: 10/22/18 17:31 Dose: 30 mg Furosemide (Lasix Injection -) 40 mg IVPUSH BID@0600,1400 [facility] Last Admin: 10/23/18 05:52 Dose: 40 mg Heparin Sodium (Porcine) (Heparin -) 5,000 unit SQ BID [facility] Last Admin: 10/22/18 22:05 Dose: 5,000 unit Piperacillin Sod/Tazobactam (Sod 3.375 gm/ Dextrose) 50 mls @ 100 mls/hr IVPB Q8H-IV [facility]; Protocol Last Admin: 10/23/18 02:39 Dose: 100 mls/hr Insulin Aspart (Novolog Vial Sliding Scale -) 1 vial SQ Q4HPO [facility]; Protocol Last Admin: 10/23/18 06:44 Dose: 12 units Insulin Detemir (Levemir Vial) 50 units SQ ACBK [facility] Last Admin: 10/23/18 06:44 Dose: 50 units Losartan Potassium (Cozaar -) 25 mg PO DAILY [facility] Last Admin: 10/22/18 09:15 Dose: 25 mg Methylprednisolone Sodium Succinate (Solu-Medrol -) 40 mg IVPUSH Q6H-IV [facility] Last Admin: 10/23/18 02:40 Dose: 40 mg Montelukast Sodium (Singulair -) 10 mg PO HS [facility] Last Admin: 10/22/18 22:06 Dose: 10 mg Nicotine (Nicoderm Patch -) 7 mg TD DAILY [facility] Last Admin: 10/22/18 09:16 Dose: 7 mg Oxycodone HCl (Roxicodone -) 5 mg PO Q6H PRN PRN Reason: PAIN LEVEL 6-10 Last Admin: 10/23/18 06:45 Dose: 5 mg Polyethylene Glycol (Miralax (For Daily Use) -) 17 gm PO BID [facility] Last Admin: 10/22/18 21:07 Dose: Not Given Senna (Senna -) 1 tab PO HS [facility] Last Admin: 10/22/18 21:07 Dose: Not Given Spironolactone (Aldactone -) 25 mg PO DAILY [facility] Last Admin: 10/22/18 09:17 Dose: 25 mg - Objective Vital Signs: Vital Signs Temperature 98.2 F 10/23/18 06:00 Pulse Rate 94 H 10/23/18 06:00 Respiratory Rate 18 10/23/18 06:00 Blood Pressure 155/99 10/23/18 06:00 O2 Sat by Pulse Oximetry (%) 97 10/22/18 21:00 Cardiovascular: Yes: S1, S2 Respiratory: Yes: On Nasal O2, Rhonchi Gastrointestinal: Yes: Normal Bowel Sounds, Soft Labs: CBC, BMP 10/23/18 06:30 10/23/18 06:30 INR, PTT INR 1.08 (0.83-1.09) 10/20/18 11:00 Problem List - Problems (1) Fever Assessment/Plan: --CULTURES DONE IV ABX ID CONSULT CT NOTED--INFILTRATES Code(s): R50.9 - FEVER, UNSPECIFIED (2) Radiculopathy of leg Assessment/Plan: --Xray of ls -mri -neuro consult -pt Code(s): M54.10 - RADICULOPATHY, SITE UNSPECIFIED (3) CHF (congestive heart failure) Assessment/Plan: IV LASIX CARDIO Code(s): I50.9 - HEART FAILURE, UNSPECIFIED Qualifiers: Heart failure type: unspecified Heart failure chronicity: unspecified Qualified Code(s): I50.9 - Heart failure, unspecified (4) COPD (chronic obstructive pulmonary disease) Assessment/Plan: NEBS STEROIDS PULM Code(s): J44.9 - CHRONIC OBSTRUCTIVE PULMONARY DISEASE, UNSPECIFIED Qualifiers: COPD type: unspecified COPD Qualified Code(s): J44.9 - Chronic obstructive pulmonary disease, unspecified (5) Sepsis Code(s): A41.9 - SEPSIS, UNSPECIFIED ORGANISM Qualifiers: Sepsis type: sepsis due to unspecified organism Qualified Code(s): A41.9 - Sepsis, unspecified organism (6) Diabetes Assessment/Plan: [facility] Code(s): E11.9 - TYPE 2 DIABETES MELLITUS WITHOUT COMPLICATIONS Qualifiers: Diabetes mellitus type: type 2 Diabetes mellitus retirement insulin use: with retirement use Diabetes mellitus complication status: with unspecified complications Qualified Code(s): E11.8 - Type 2 diabetes mellitus with unspecified complications; Z79.4 - snf (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 of insulin (7) Pneumonia Assessment/Plan: -IV ABX -ID ON BOARD Code(s): J18.9 - PNEUMONIA, UNSPECIFIED ORGANISM
[2018-10-23] MEDS: HEPARIN NA (PORCINE) 5,000 UNITS/ML 1ML VIAL SQ SCH ×2 (10:50→21:38)
[2018-10-23] MEDS: DULoxetine HCL 30 MG CAPSULE.DR (FP) PO SCH (10:50)
[2018-10-23] MEDS: SPIRONOLACTONE 25 MG TABLET (FP) PO SCH (10:51)
[2018-10-23] MEDS: POLYETHYLENE GLYCOL 3350 119 GM BTL PO SCH ×2 (10:51→21:39)
[2018-10-23] MEDS: LOSARTAN POTASSIUM 25 MG TABLET PO SCH (10:51)
[2018-10-23] MEDS: NICOTINE 7 MG/24 HOURS TOPICAL PATCH TD SCH (10:52)
--- NOTE | 2018-10-23 11:16 | PN ---
Progress Note, Physician History of Present Illness: seen and examined today in nad. states she is feeling better. no overnight events no new complaints. - Current Medication List Current Medications: Active Medications Acetaminophen (Tylenol -) 325 mg PO Q6H PRN PRN Reason: PAIN LEVEL 6-10 Last Admin: 10/23/18 06:46 Dose: 325 mg Albuterol/Ipratropium (Duoneb -) 1 amp NEB Q4H PRN PRN Reason: ASTHMA Last Admin: 10/22/18 21:13 Dose: 1 amp Atorvastatin Calcium (Lipitor -) 10 mg PO HS [facility] Last Admin: 10/22/18 22:05 Dose: 10 mg Carvedilol (Coreg -) 6.25 mg PO BID [facility] Last Admin: 10/23/18 10:51 Dose: 6.25 mg Duloxetine HCl (Cymbalta -) 30 mg PO DAILY [facility] Last Admin: 10/23/18 10:50 Dose: 30 mg Furosemide (Lasix Injection -) 40 mg IVPUSH BID@0600,1400 [facility] Last Admin: 10/23/18 05:52 Dose: 40 mg Heparin Sodium (Porcine) (Heparin -) 5,000 unit SQ BID [facility] Last Admin: 10/23/18 10:50 Dose: 5,000 unit Piperacillin Sod/Tazobactam (Sod 3.375 gm/ Dextrose) 50 mls @ 100 mls/hr IVPB Q8H-IV [facility]; Protocol Last Admin: 10/23/18 10:50 Dose: 100 mls/hr Insulin Aspart (Novolog Vial Sliding Scale -) 1 vial SQ Q4HPO [facility]; Protocol Last Admin: 10/23/18 06:44 Dose: 12 units Insulin Detemir (Levemir Vial) 50 units SQ ACBK [facility] Last Admin: 10/23/18 06:44 Dose: 50 units Losartan Potassium (Cozaar -) 25 mg PO DAILY [facility] Last Admin: 10/23/18 10:51 Dose: 25 mg Methylprednisolone Sodium Succinate (Solu-Medrol -) 40 mg IVPUSH BID [facility] Last Admin: 10/23/18 10:50 Dose: 40 mg Montelukast Sodium (Singulair -) 10 mg PO HS [facility] Last Admin: 10/22/18 22:06 Dose: 10 mg Nicotine (Nicoderm Patch -) 7 mg TD DAILY [facility] Last Admin: 10/23/18 10:52 Dose: 7 mg Oxycodone HCl (Roxicodone -) 5 mg PO Q6H PRN PRN Reason: PAIN LEVEL 6-10 Last Admin: 10/23/18 06:45 Dose: 5 mg Polyethylene Glycol (Miralax (For Daily Use) -) 17 gm PO BID [facility] Last Admin: 10/23/18 10:51 Dose: 17 gm Senna (Senna -) 1 tab PO HS [facility] Last Admin: 10/22/18 21:07 Dose: Not Given Spironolactone (Aldactone -) 25 mg PO DAILY [facility] Last Admin: 10/23/18 10:51 Dose: 25 mg - Objective Vital Signs: Vital Signs Temperature 97.6 F 10/23/18 10:00 Pulse Rate 125 H 10/23/18 10:00 Respiratory Rate 20 10/23/18 10:00 Blood Pressure 136/73 10/23/18 10:00 O2 Sat by Pulse Oximetry (%) 97 10/22/18 21:00 Constitutional: Yes: No Distress, Calm Eyes: Yes: Conjunctiva Clear, EOM Intact HENT: Yes: Atraumatic, Normocephalic Neck: Yes: Supple, Trachea Midline Cardiovascular: Yes: Tachycardia, S1, S2. No: Regular Rate and Rhythm, Bradycardia, Pulse Irregular, Bruit, JVD, Gallop, Murmur, S3, S4, Varicosities, Other Respiratory: Yes: Regular, Diminished. No: Rales, Rhonchi, SOB, Wheezes Gastrointestinal: Yes: Normal Bowel Sounds, Soft Musculoskeletal: Yes: WNL Extremities: Yes: WNL Edema: No Peripheral Pulses WNL: Yes Peripheral Pulses: Left Doralis Pedis: 2+, Right Dorsalis Pedis: 2+ Neurological: Yes: Alert, Oriented Psychiatric: Yes: Alert, Oriented Labs: CBC, BMP 10/23/18 06:30 10/23/18 06:30 INR, PTT INR 1.08 (0.83-1.09) 10/20/18 11:00 - ....Imaging Chest X-ray: Report Reviewed, Image Reviewed EKG: Report Reviewed, Image Reviewed Other: Report Reviewed, Image Reviewed (tele-nsr, sinus tach, possible psvt) Assessment/Plan 58 year-old woman with a PMHx of DM, chronic systolic CHF EF 30-35% secondary to non-ischemic CMP admitted with fever, cough, hemotysis and leg pain. At baseline ambulates 2-3 blocks limited by SOB. Pt in ED was incidentally found to have fever 103. Complaing of hemoptysis. She has been treated for pneumonia and CHF with improvement. Atypical chest pain reported. CXR with mild congestion. Possible PNA. ECG NSR septal DC. 1) Acute on chronic systolic CHF with improved dyspnea and fluid overload on IV Lasix. -transition to po Lasix -Increase carvedilol to 12.5 mg BID for better heart rate and BP control. -Continue Aldactone and Losartan. -Out patient referral for prophylactic AICD if LV systolic function remains poor in 2 months. 2) HTN: BP is variable, on average above goal -increase carvedilol to 12.5 mg BID. Increase further as BP tolerated for heart rate control.
--- NOTE | 2018-10-23 13:04 | PN ---
Progress Note (short form) - Note Progress Note: PULMONARY Breathing better but still with cough and wheezing. No further fevers. Vital Signs Period Temp Pulse Resp BP Sys/Plasencia Pulse Ox Last 24 Hr 97.4 F-98.3 F 94-125 18-20 133-156/73-99 97 Gen: NAD at rest Heart: RRR Lung: scattered rhonchi, wheezes Abd: soft, nontender Ext: no edema CBC, BMP 10/23/18 06:30 10/23/18 06:30 Active Medications Acetaminophen (Tylenol -) 325 mg PO Q6H PRN PRN Reason: PAIN LEVEL 6-10 Last Admin: 10/23/18 06:46 Dose: 325 mg Albuterol/Ipratropium (Duoneb -) 1 amp NEB Q4H PRN PRN Reason: ASTHMA Last Admin: 10/22/18 21:13 Dose: 1 amp Atorvastatin Calcium (Lipitor -) 10 mg PO HS [facility] Last Admin: 10/22/18 22:05 Dose: 10 mg Carvedilol (Coreg -) 6.25 mg PO BID [facility] Last Admin: 10/23/18 10:51 Dose: 6.25 mg Duloxetine HCl (Cymbalta -) 30 mg PO DAILY [facility] Last Admin: 10/23/18 10:50 Dose: 30 mg Furosemide (Lasix Injection -) 40 mg IVPUSH BID@0600,1400 [facility] Last Admin: 10/23/18 05:52 Dose: 40 mg Heparin Sodium (Porcine) (Heparin -) 5,000 unit SQ BID [facility] Last Admin: 10/23/18 10:50 Dose: 5,000 unit Piperacillin Sod/Tazobactam (Sod 3.375 gm/ Dextrose) 50 mls @ 100 mls/hr IVPB Q8H-IV [facility]; Protocol Last Admin: 10/23/18 10:50 Dose: 100 mls/hr Insulin Aspart (Novolog Vial Sliding Scale -) 1 vial SQ Q4HPO [facility]; Protocol Last Admin: 10/23/18 11:46 Dose: 9 units Insulin Detemir (Levemir Vial) 50 units SQ ACBK [facility] Last Admin: 10/23/18 06:44 Dose: 50 units Losartan Potassium (Cozaar -) 25 mg PO DAILY [facility] Last Admin: 10/23/18 10:51 Dose: 25 mg Methylprednisolone Sodium Succinate (Solu-Medrol -) 40 mg IVPUSH BID [facility] Last Admin: 10/23/18 10:50 Dose: 40 mg Montelukast Sodium (Singulair -) 10 mg PO HS [facility] Last Admin: 10/22/18 22:06 Dose: 10 mg Nicotine (Nicoderm Patch -) 7 mg TD DAILY [facility] Last Admin: 10/23/18 10:52 Dose: 7 mg Oxycodone HCl (Roxicodone -) 5 mg PO Q6H PRN PRN Reason: PAIN LEVEL 6-10 Last Admin: 10/23/18 06:45 Dose: 5 mg Polyethylene Glycol (Miralax (For Daily Use) -) 17 gm PO BID [facility] Last Admin: 10/23/18 10:51 Dose: 17 gm Senna (Senna -) [address] [facility] Last Admin: 10/22/18 21:07 Dose: Not Given Spironolactone (Aldactone -) 25 mg PO DAILY [facility] Last Admin: 10/23/18 10:51 Dose: 25 mg A/P Pneumonia Acute on Chronic Systolic Heart Failure Acute COPD Exacerbation HTN DM - continue antibiotics - continue medrol at same dose - inhaled bronchodilators - O2 to keep SpO2 >90% - continue lasix - monitor urine output, creatinine - DVT prophylaxis
--- NOTE | 2018-10-23 17:36 | PN ---
Progress Note, Physician History of Present Illness: AWAKE, ALERT SEATED IN BED NO C/O CHEST PAIN/ DYSPNEA + COUGH NO HEMOPTYSIS TEMPS DOWN AFEBRILE CT B/L PATCHY INFILTRATES - Current Medication List Current Medications: Active Medications Acetaminophen (Tylenol -) 325 mg PO Q6H PRN PRN Reason: PAIN LEVEL 6-10 Last Admin: 10/23/18 06:46 Dose: 325 mg Albuterol/Ipratropium (Duoneb -) 1 amp NEB Q4H PRN PRN Reason: ASTHMA Last Admin: 10/22/18 21:13 Dose: 1 amp Atorvastatin Calcium (Lipitor -) 10 mg PO HS [facility] Last Admin: 10/22/18 22:05 Dose: 10 mg Carvedilol (Coreg -) 6.25 mg PO BID [facility] Last Admin: 10/23/18 10:51 Dose: 6.25 mg Duloxetine HCl (Cymbalta -) 30 mg PO DAILY [facility] Last Admin: 10/23/18 10:50 Dose: 30 mg Furosemide (Lasix Injection -) 40 mg IVPUSH BID@0600,1400 [facility] Last Admin: 10/23/18 13:57 Dose: 40 mg Heparin Sodium (Porcine) (Heparin -) 5,000 unit SQ BID [facility] Last Admin: 10/23/18 10:50 Dose: 5,000 unit Piperacillin Sod/Tazobactam (Sod 3.375 gm/ Dextrose) 50 mls @ 100 mls/hr IVPB Q8H-IV [facility]; Protocol Last Admin: 10/23/18 10:50 Dose: 100 mls/hr Insulin Aspart (Novolog Vial Sliding Scale -) 1 vial SQ Q4HPO [facility]; Protocol Last Admin: 10/23/18 14:15 Dose: 10 units Insulin Detemir (Levemir Vial) 50 units SQ ACBK [facility] Last Admin: 10/23/18 06:44 Dose: 50 units Losartan Potassium (Cozaar -) 25 mg PO DAILY [facility] Last Admin: 10/23/18 10:51 Dose: 25 mg Methylprednisolone Sodium Succinate (Solu-Medrol -) 40 mg IVPUSH BID [facility] Last Admin: 10/23/18 10:50 Dose: 40 mg Montelukast Sodium (Singulair -) 10 mg PO HS [facility] Last Admin: 10/22/18 22:06 Dose: 10 mg Nicotine (Nicoderm Patch -) 7 mg TD DAILY [facility] Last Admin: 10/23/18 10:52 Dose: 7 mg Oxycodone HCl (Roxicodone -) 5 mg PO Q6H PRN PRN Reason: PAIN LEVEL 6-10 Last Admin: 10/23/18 06:45 Dose: 5 mg Polyethylene Glycol (Miralax (For Daily Use) -) 17 gm PO BID [facility] Last Admin: 10/23/18 10:51 Dose: 17 gm Senna (Senna -) 1 tab PO HS [facility] Last Admin: 10/22/18 21:07 Dose: Not Given Spironolactone (Aldactone -) 25 mg PO DAILY [facility] Last Admin: 10/23/18 10:51 Dose: 25 mg - Objective Vital Signs: Vital Signs Temperature 97.5 F L 10/23/18 14:00 Pulse Rate 99 H 10/23/18 14:00 Respiratory Rate 20 10/23/18 14:00 Blood Pressure 135/73 10/23/18 14:00 O2 Sat by Pulse Oximetry (%) 99 10/23/18 09:00 Constitutional: Yes: No Distress, Obese Cardiovascular: Yes: Regular Rate and Rhythm, S1, S2 Respiratory: Yes: Diminished Gastrointestinal: Yes: Normal Bowel Sounds, Soft. No: Tenderness Edema: No Labs: CBC, BMP 10/23/18 06:30 10/23/18 06:30 INR, PTT INR 1.08 (0.83-1.09) 10/20/18 11:00 Assessment/Plan CHF R/O PNEUMONIA HEMOPTYSIS FEVER/ LEUKOCYTOSIS CONTINUE EMPIRIC ZOSYN
[2018-10-23] MEDS ORDERED: MAG HYDROX/AL HYDROX/SIMETH -MYLANTA- ORAL SUSPENSION PO PRN (21:25)
[2018-10-23] MEDS ORDERED: MAG HYDROX/AL HYDROX/SIMETH 30 ML UNIT-DOSE CUP PO PRN (21:34)
[2018-10-23] MEDS: MONTELUKAST NA 10 MG TABLET PO SCH (21:38)
[2018-10-23] MEDS: ATORVASTATIN CA 10 MG TABLET (FP) PO SCH (21:38)
[2018-10-23] MEDS: SENNOSIDES 8.6MG TABLET (FP) PO SCH (21:38)
[2018-10-23] MEDS: ALBUTEROL SO4 2.5/IPRATROPIUM 0.5 INH SOL 3 ML VIAL.NEB. NEB PRN (22:33)
[2018-10-24] MEDS ORDERED: DEXTROSE 5%-WATER - 50 ML IVPB ONE ×2 (01:50→09:19)
[2018-10-24] MEDS ORDERED: PIPERACILLIN/TAZOBACTAM 3.375 GM VIAL IVPB ONE ×2 (01:50→09:19)
[2018-10-24] MEDS: PIPERACILLIN/TAZOB 3.375 GM 3.375 GM in DEXTROSE 5%-WATER - 50 ML IVPB SCH ×2 (02:12→10:00)
[2018-10-24] MEDS: INSULIN SLIDING SCALE (NOVOLOG) 1 VIAL SQ SCH ×6 (02:13→23:30)
[2018-10-24] MEDS: FUROSEMIDE 40 MG/4 ML INJECTABLE VIAL IVPUSH SCH (05:28)
[2018-10-24] MEDS: INSULIN (LEVEMIR) 100 UNITS/ML UNITS SQ SCH (07:05)
[2018-10-24] MEDS ORDERED: PT OWN MED DRAWER 7, Y5N ONE (09:20)
--- NOTE | 2018-10-24 09:55 | PN ---
Progress Note, Physician - Current Medication List Current Medications: Active Medications Acetaminophen (Tylenol -) 325 mg PO Q6H PRN PRN Reason: PAIN LEVEL 6-10 Last Admin: 10/23/18 06:46 Dose: 325 mg Al Hydroxide/Mg Hydroxide (Mylanta Oral Suspension -) 30 ml PO Q8H PRN PRN Reason: GI upset Last Admin: 10/23/18 22:21 Dose: 30 ml Albuterol/Ipratropium (Duoneb -) 1 amp NEB Q4H PRN PRN Reason: ASTHMA Last Admin: 10/23/18 22:33 Dose: 1 amp Atorvastatin Calcium (Lipitor -) 10 mg PO HS [facility] Last Admin: 10/23/18 21:38 Dose: 10 mg Carvedilol (Coreg -) 6.25 mg PO BID [facility] Last Admin: 10/23/18 21:37 Dose: 6.25 mg Duloxetine HCl (Cymbalta -) 30 mg PO DAILY [facility] Last Admin: 10/23/18 10:50 Dose: 30 mg Furosemide (Lasix Injection -) 40 mg IVPUSH BID@0600,1400 [facility] Last Admin: 10/24/18 05:28 Dose: 40 mg Heparin Sodium (Porcine) (Heparin -) 5,000 unit SQ BID [facility] Last Admin: 10/23/18 21:38 Dose: 5,000 unit Piperacillin Sod/Tazobactam (Sod 3.375 gm/ Dextrose) 50 mls @ 100 mls/hr IVPB Q8H-IV [facility]; Protocol Last Admin: 10/24/18 02:12 Dose: 100 mls/hr Insulin Aspart (Novolog Vial Sliding Scale -) 1 vial SQ Q4HPO [facility]; Protocol Last Admin: 10/24/18 07:06 Dose: 7 units Insulin Detemir (Levemir Vial) 50 units SQ ACBK [facility] Last Admin: 10/24/18 07:05 Dose: 50 units Losartan Potassium (Cozaar -) 25 mg PO DAILY [facility] Last Admin: 10/23/18 10:51 Dose: 25 mg Methylprednisolone Sodium Succinate (Solu-Medrol -) 40 mg IVPUSH BID [facility] Last Admin: 10/23/18 21:38 Dose: 40 mg Montelukast Sodium (Singulair -) 10 mg PO HS [facility] Last Admin: 10/23/18 21:38 Dose: 10 mg Nicotine (Nicoderm Patch -) 7 mg TD DAILY [facility] Last Admin: 10/23/18 10:52 Dose: 7 mg Oxycodone HCl (Roxicodone -) 5 mg PO Q6H PRN PRN Reason: PAIN LEVEL 6-10 Last Admin: 10/23/18 06:45 Dose: 5 mg Polyethylene Glycol (Miralax (For Daily Use) -) 17 gm PO BID [facility] Last Admin: 10/23/18 21:39 Dose: Not Given Senna (Senna -) 1 tab PO HS [facility] Last Admin: 10/23/18 21:38 Dose: 1 tab Spironolactone (Aldactone -) 25 mg PO DAILY [facility] Last Admin: 10/23/18 10:51 Dose: 25 mg - Objective Vital Signs: Vital Signs Temperature 97.8 F 10/24/18 06:00 Pulse Rate 90 10/24/18 06:00 Respiratory Rate 20 10/24/18 06:00 Blood Pressure 145/90 10/24/18 06:00 O2 Sat by Pulse Oximetry (%) 98 10/23/18 21:00 Cardiovascular: Yes: S1, S2 Respiratory: Yes: On Nasal O2, Rhonchi Gastrointestinal: Yes: Normal Bowel Sounds, Soft Labs: CBC, BMP 10/23/18 06:30 10/23/18 06:30 INR, PTT INR 1.08 (0.83-1.09) 10/20/18 11:00 Problem List - Problems (1) Fever Assessment/Plan: --CULTURES DONE IV ABX ID CONSULT CT NOTED--INFILTRATES Code(s): R50.9 - FEVER, UNSPECIFIED (2) Radiculopathy of leg Assessment/Plan: --Xray of ls -mri NOTED--DISC DS -neuro consult -pt Code(s): M54.10 - RADICULOPATHY, SITE UNSPECIFIED (3) CHF (congestive heart failure) Assessment/Plan: IV LASIX--TO 80 Q AM COREG 12.5 BID [facility]IO Code(s): I50.9 - HEART FAILURE, UNSPECIFIED Qualifiers: Heart failure type: unspecified Heart failure chronicity: unspecified Qualified Code(s): I50.9 - Heart failure, unspecified (4) COPD (chronic obstructive pulmonary disease) Assessment/Plan: NEBS STEROIDS--TO PO 30 BID PULM Code(s): J44.9 - CHRONIC OBSTRUCTIVE PULMONARY DISEASE, UNSPECIFIED Qualifiers: COPD type: unspecified COPD Qualified Code(s): J44.9 - Chronic obstructive pulmonary disease, unspecified (5) Sepsis Code(s): A41.9 - SEPSIS, UNSPECIFIED ORGANISM Qualifiers: Sepsis type: sepsis due to unspecified organism Qualified Code(s): A41.9 - Sepsis, unspecified organism (6) Diabetes Assessment/Plan: [facility] Code(s): E11.9 - TYPE 2 DIABETES MELLITUS WITHOUT COMPLICATIONS Qualifiers: Diabetes mellitus type: type 2 Diabetes mellitus retirement insulin use: with admission discharge rn use Diabetes mellitus complication status: with unspecified complications Qualified Code(s): E11.8 - Type 2 diabetes mellitus with unspecified complications; 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
[2018-10-24] MEDS: DULoxetine HCL 30 MG CAPSULE.DR (FP) PO SCH (10:00)
[2018-10-24] MEDS: SPIRONOLACTONE 25 MG TABLET (FP) PO SCH (10:00)
[2018-10-24] MEDS: CARVEDILOL 6.25 MG TABLET (FP) PO SCH (10:00)
[2018-10-24] MEDS: HEPARIN NA (PORCINE) 5,000 UNITS/ML 1ML VIAL SQ SCH ×2 (10:00→23:03)
[2018-10-24] MEDS: LOSARTAN POTASSIUM 25 MG TABLET PO SCH (10:00)
[2018-10-24] MEDS: POLYETHYLENE GLYCOL 3350 119 GM BTL PO SCH ×2 (10:01→23:03)
[2018-10-24] MEDS: NICOTINE 7 MG/24 HOURS TOPICAL PATCH TD SCH (10:01)
[2018-10-24] MEDS: methylPREDNISolone NA SUCC 40 MG/1 ML VIAL IVPUSH SCH (10:01)
--- NOTE | 2018-10-24 12:20 | PN ---
Progress Note, Physician History of Present Illness: pulmonary alert,feeling better,less dyspneic - Current Medication List Current Medications: Active Medications Acetaminophen (Tylenol -) 325 mg PO Q6H PRN PRN Reason: PAIN LEVEL 6-10 Last Admin: 10/23/18 06:46 Dose: 325 mg Al Hydroxide/Mg Hydroxide (Mylanta Oral Suspension -) 30 ml PO Q8H PRN PRN Reason: GI upset Last Admin: 10/23/18 22:21 Dose: 30 ml Albuterol/Ipratropium (Duoneb -) 1 amp NEB Q4H PRN PRN Reason: ASTHMA Last Admin: 10/23/18 22:33 Dose: 1 amp Atorvastatin Calcium (Lipitor -) 10 mg PO HS [facility] Last Admin: 10/23/18 21:38 Dose: 10 mg Carvedilol (Coreg -) 12.5 mg PO BID [facility] Duloxetine HCl (Cymbalta -) 30 mg PO DAILY [facility] Last Admin: 10/24/18 10:00 Dose: 30 mg Furosemide (Lasix -) 80 mg PO DAILY [facility] Heparin Sodium (Porcine) (Heparin -) 5,000 unit SQ BID [facility] Last Admin: 10/24/18 10:00 Dose: 5,000 unit Piperacillin Sod/Tazobactam (Sod 3.375 gm/ Dextrose) 50 mls @ 100 mls/hr IVPB Q8H-IV [facility]; Protocol Last Admin: 10/24/18 10:00 Dose: 100 mls/hr Insulin Aspart (Novolog Vial Sliding Scale -) 1 vial SQ Q4HPO [facility]; Protocol Last Admin: 10/24/18 11:26 Dose: 5 units Insulin Detemir (Levemir Vial) 50 units SQ ACBK [facility] Last Admin: 10/24/18 07:05 Dose: 50 units Losartan Potassium (Cozaar -) 25 mg PO DAILY [facility] Last Admin: 10/24/18 10:00 Dose: 25 mg Montelukast Sodium (Singulair -) 10 mg PO HS [facility] Last Admin: 10/23/18 21:38 Dose: 10 mg Nicotine (Nicoderm Patch -) 7 mg TD DAILY [facility] Last Admin: 10/24/18 10:01 Dose: 7 mg Oxycodone HCl (Roxicodone -) 5 mg PO Q6H PRN PRN Reason: PAIN LEVEL 6-10 Last Admin: 10/23/18 06:45 Dose: 5 mg Polyethylene Glycol (Miralax (For Daily Use) -) 17 gm PO BID [facility] Last Admin: 10/24/18 10:01 Dose: 17 gm Prednisone (Deltasone -) 30 mg PO BID [facility] Senna (Senna -) 1 tab PO HS [facility] Last Admin: 10/23/18 21:38 Dose: 1 tab Spironolactone (Aldactone -) 25 mg PO DAILY [facility] Last Admin: 10/24/18 10:00 Dose: 25 mg - Objective Vital Signs: Vital Signs Temperature 97.3 F L 10/24/18 10:00 Pulse Rate 99 H 10/24/18 10:00 Respiratory Rate 20 10/24/18 10:00 Blood Pressure 158/89 10/24/18 10:00 O2 Sat by Pulse Oximetry (%) 98 10/23/18 21:00 Constitutional: Yes: Well Nourished, Calm Eyes: Yes: WNL HENT: Yes: WNL Neck: Yes: WNL Cardiovascular: Yes: Regular Rate and Rhythm, S1, S2 Respiratory: Yes: Rales (bibasilar rales) Gastrointestinal: Yes: Normal Bowel Sounds, Soft Extremities: Yes: WNL Edema: No Labs: CBC, BMP INR 1.08 (0.83-1.09) 10/20/18 11:00 Problem List - Problems (1) CHF (congestive heart failure) Code(s): I50.9 - HEART FAILURE, UNSPECIFIED Qualifiers: Qualified Code(s): I50.9 - Heart failure, unspecified (2) COPD (chronic obstructive pulmonary disease) Code(s): J44.9 - CHRONIC OBSTRUCTIVE PULMONARY DISEASE, UNSPECIFIED Qualifiers: Qualified Code(s): J44.9 - Chronic obstructive pulmonary disease, unspecified (3) Consolidation of right upper lobe Code(s): J18.1 - LOBAR PNEUMONIA, UNSPECIFIED ORGANISM (4) Fever Code(s): R50.9 - FEVER, UNSPECIFIED (5) Radiculopathy of leg Code(s): M54.10 - RADICULOPATHY, SITE UNSPECIFIED (6) Acute on chronic respiratory failure with hypoxemia Code(s): J96.21 - ACUTE AND CHRONIC RESPIRATORY FAILURE WITH HYPOXIA (7) Acute on chronic systolic (congestive) heart failure Code(s): I50.23 - ACUTE ON CHRONIC SYSTOLIC (CONGESTIVE) HEART FAILURE (8) Cardiomyopathy Code(s): I42.9 - CARDIOMYOPATHY, UNSPECIFIED Qualifiers: Qualified Code(s): I42.9 - Cardiomyopathy, unspecified (9) HTN (hypertension) Code(s): I10 - ESSENTIAL (PRIMARY) HYPERTENSION Qualifiers: Qualified Code(s): I10 - Essential (primary) hypertension (10) Hemoptysis Code(s): R04.2 - HEMOPTYSIS (11) Pneumonia Code(s): J18.9 - PNEUMONIA, UNSPECIFIED ORGANISM (12) Smoker Code(s): F17.200 - NICOTINE DEPENDENCE, UNSPECIFIED, UNCOMPLICATED Assessment/Plan IMP DYSPNEA ACUTE ON CHRONIC CHF NON-ISCHEMIC CARDIOMYOPATHY WITH SEVERE LV DYSFUNCTION FEVER/HEMOPTYSIS RESOLVED PNEUMONIA COPD RLL EXT PAIN H/O TOBACCO ABUSE IDDM HTN PLAN ABX LASIX INHALED BRONCHODILATORS DAILY WT PREDNISONE DR LOMELI Problem List - Problems (1) CHF (congestive heart failure) Code(s): I50.9 - HEART FAILURE, UNSPECIFIED Qualifiers: Heart failure type: unspecified Heart failure chronicity: unspecified Qualified Code(s): I50.9 - Heart failure, unspecified (2) COPD (chronic obstructive pulmonary disease) Code(s): J44.9 - CHRONIC OBSTRUCTIVE PULMONARY DISEASE, UNSPECIFIED Qualifiers: COPD type: unspecified COPD Qualified Code(s): J44.9 - Chronic obstructive pulmonary disease, unspecified (3) Consolidation of right upper lobe Code(s): J18.1 - LOBAR PNEUMONIA, UNSPECIFIED ORGANISM (4) Fever Code(s): R50.9 - FEVER, UNSPECIFIED (5) Radiculopathy of leg Code(s): M54.10 - RADICULOPATHY, SITE UNSPECIFIED (6) Acute on chronic respiratory failure with hypoxemia Code(s): J96.21 - ACUTE AND CHRONIC RESPIRATORY FAILURE WITH HYPOXIA (7) Acute on chronic systolic (congestive) heart failure Code(s): I50.23 - ACUTE ON CHRONIC SYSTOLIC (CONGESTIVE) HEART FAILURE (8) Cardiomyopathy Code(s): I42.9 - CARDIOMYOPATHY, UNSPECIFIED Qualifiers: Cardiomyopathy type: unspecified Qualified Code(s): I42.9 - Cardiomyopathy , unspecified (9) HTN (hypertension) Code(s): I10 - ESSENTIAL (PRIMARY) HYPERTENSION Qualifiers: Hypertension type: essential hypertension Qualified Code(s): I10 - Essential (primary) hypertension (10) Hemoptysis Code(s): R04.2 - HEMOPTYSIS (11) Pneumonia Code(s): J18.9 - PNEUMONIA, UNSPECIFIED ORGANISM (12) Smoker Code(s): F17.200 - NICOTINE DEPENDENCE, UNSPECIFIED, UNCOMPLICATED
--- NOTE | 2018-10-24 12:21 | PN ---
Progress Note, Physician History of Present Illness: AWAKE, ALERT NO C/O CHEST PAIN/ DYSPNEA + DRY COUGH NO HEMOPTYSIS TEMPS DOWN AFEBRILE CT B/L PATCHY INFILTRATES - Current Medication List Current Medications: Active Medications Acetaminophen (Tylenol -) 325 mg PO Q6H PRN PRN Reason: PAIN LEVEL 6-10 Last Admin: 10/23/18 06:46 Dose: 325 mg Al Hydroxide/Mg Hydroxide (Mylanta Oral Suspension -) 30 ml PO Q8H PRN PRN Reason: GI upset Last Admin: 10/23/18 22:21 Dose: 30 ml Albuterol/Ipratropium (Duoneb -) 1 amp NEB Q4H PRN PRN Reason: ASTHMA Last Admin: 10/23/18 22:33 Dose: 1 amp Atorvastatin Calcium (Lipitor -) 10 mg PO HS [facility] Last Admin: 10/23/18 21:38 Dose: 10 mg Carvedilol (Coreg -) 12.5 mg PO BID [facility] Duloxetine HCl (Cymbalta -) 30 mg PO DAILY [facility] Last Admin: 10/24/18 10:00 Dose: 30 mg Furosemide (Lasix -) 80 mg PO DAILY [facility] Heparin Sodium (Porcine) (Heparin -) 5,000 unit SQ BID [facility] Last Admin: 10/24/18 10:00 Dose: 5,000 unit Piperacillin Sod/Tazobactam (Sod 3.375 gm/ Dextrose) 50 mls @ 100 mls/hr IVPB Q8H-IV [facility]; Protocol Last Admin: 10/24/18 10:00 Dose: 100 mls/hr Insulin Aspart (Novolog Vial Sliding Scale -) 1 vial SQ Q4HPO [facility]; Protocol Last Admin: 10/24/18 11:26 Dose: 5 units Insulin Detemir (Levemir Vial) 50 units SQ ACBK [facility] Last Admin: 10/24/18 07:05 Dose: 50 units Losartan Potassium (Cozaar -) 25 mg PO DAILY [facility] Last Admin: 10/24/18 10:00 Dose: 25 mg Montelukast Sodium (Singulair -) 10 mg PO HS [facility] Last Admin: 10/23/18 21:38 Dose: 10 mg Nicotine (Nicoderm Patch -) 7 mg TD DAILY [facility] Last Admin: 10/24/18 10:01 Dose: 7 mg Oxycodone HCl (Roxicodone -) 5 mg PO Q6H PRN PRN Reason: PAIN LEVEL 6-10 Last Admin: 10/23/18 06:45 Dose: 5 mg Polyethylene Glycol (Miralax (For Daily Use) -) 17 gm PO BID [facility] Last Admin: 10/24/18 10:01 Dose: 17 gm Prednisone (Deltasone -) 30 mg PO BID [facility] Senna (Senna -) 1 tab PO HS [facility] Last Admin: 10/23/18 21:38 Dose: 1 tab Spironolactone (Aldactone -) 25 mg PO DAILY [facility] Last Admin: 10/24/18 10:00 Dose: 25 mg - Objective Vital Signs: Vital Signs Temperature 97.3 F L 10/24/18 10:00 Pulse Rate 99 H 10/24/18 10:00 Respiratory Rate 20 10/24/18 10:00 Blood Pressure 158/89 10/24/18 10:00 O2 Sat by Pulse Oximetry (%) 98 10/23/18 21:00 Constitutional: Yes: No Distress Cardiovascular: Yes: Regular Rate and Rhythm, S1, S2 Respiratory: Yes: CTA Bilaterally Gastrointestinal: Yes: Normal Bowel Sounds, Soft. No: Tenderness Labs: CBC, BMP 10/23/18 06:30 10/23/18 06:30 INR, PTT INR 1.08 (0.83-1.09) 10/20/18 11:00 Assessment/Plan CHF R/O PNEUMONIA HEMOPTYSIS FEVER/ LEUKOCYTOSIS SUBSTITUTE PO AUGMENTIN
--- NOTE | 2018-10-24 12:44 | CONSULT ---
Consult Consult Specialty:: PM&R Dr Lackey for Dr Richmond - History of Present Illness Chief Complaint: LBP, controlled History of Present Illness: This is a 58 year old woman with a medical history of CHF, HTN, HLD, COPD on 2.5L NC at home, IDDM, who presented to the ED 10/20/18 with fevers, cough and RLE pain. R knee XR 10/20/18 shows irregularity at quad tendon insertion on patella without acute pathology. R hip/ pelvis XR shows evidence of old injury causing HO and unfused acetabular apophysis vs old injury, without acute pathology. XR lumbar spine 10/21/18 shows possible sacrococcygeal fx and spondylolisthess of L4 on L5. MRI lumbar spine without contrast 10/21/18 shows diffuse mild to moderate DJD causing moderate central stenosis and R foraminal stenosis L4-5 with far lateral HNP impinging on R L4, and L5-S1 disc bulge and HNP contacting B S1 nerve roots. She was seen by Cardiology for CHF exacerbation , by Pulm for dyspnea due to CHF and COPD exacerbations, and by ID for fevers ( rule out PNA). CT chest 10/22/18 showed patchy pulm infiltrates with areas of groundglass opacification. Endocrinology was also consulted for her DM, and Neurology was consulted for her radicular pain who recommended PT and Gabapentin which is helping. With PT 10/23/18, she was Independent in Transfers, and ambulated 200ft Supervision with Rolling Walker. Physiatry is being consulted for further recommendations. - Past Medical History Cardio/Vascular: Yes: CHF, HTN, Hyperlipdemia. No: AFIB, CAD Pulmonary: Yes: Asthma, COPD, O2 Dependent. No: Pneumonia, Previously Intubated , Pulmonary Embolus, Pulmonary Fibrosis, Sleep Apnea Gastrointestinal: Yes: GERD. No: Cancer Renal/: Yes: Renal Inusuff ...: No Endocrine: Yes: Diabetes Mellitus - Alcohol/Substance Use Hx Alcohol Use: No History of Substance Use: reports: None - Smoking History Smoking history: Former smoker Have you smoked in the past 12 months: Yes Aproximately how many cigarettes per day: 10 If you are a former smoker, when did you quit?: 3 WEEKS AGO - Social History Usual Living Arrangement: With Spouse ADL: Independent History of Recent Travel: No Home Medications - Allergies Allergies/Adverse Reactions: Allergies Allergy/AdvReac Type Severity Reaction Status Date / Time No Known Allergies Allergy Verified 10/11/18 19:50 - Home Medications Home Medications: Ambulatory Orders Albuterol 2.5/Ipratropium 0.5 [Duoneb -] 1 neb NEB Q4H PRN #180 amp 05/03/17 Atorvastatin Ca [Lipitor] 10 mg PO HS #30 tab 05/03/17 Linaclotide [Linzess] 145 mcg PO DAILY #30 cap 05/03/17 Montelukast Na [Singulair -] 10 mg PO HS #30 tab 05/03/17 Esomeprazole Magnesium [Nexium 24Hr] 20 mg PO DAILY 04/20/18 Carvedilol [Coreg -] 6.25 mg PO BID #60 tablet 04/24/18 Furosemide [Lasix -] 40 mg PO DAILY #30 tablet 04/24/18 Insulin (Levemir) [Levemir Vial] 15 units SQ ACBK units 04/24/18 Losartan Potassium [Cozaar -] 25 mg PO DAILY #30 tablet 04/24/18 Magnesium Hydrox 2400MG/30Ml [Milk of Magnesia -] 30 ml PO Q8H PRN #1 bot Polyethylene Glycol 3350 [Miralax 119 gm Btl -] 17 gm PO DAILY #1 bottle Sennosides [Senna -] 1 tab PO HS #30 tablet 05/02/18 Dapagliflozin Propanediol [Farxiga] 10 mg PO DAILY 09/20/18 Albuterol 0.083% Nebulizer Chayito [Ventolin 0.083% Nebulizer Soln -] 1 amp NEB Q4H PRN amp 09/26/18 Insulin Sliding Scale [Novolog Vial Sliding Scale -] 1 vial SQ ASDIR 10/20/18 Nicotine Patch [Nicoderm Patch -] 1 patch TD DAILY 10/20/18 Family Disease History - Family Disease History Family Disease History: Diabetes: Father, Brother Review of Systems Findings/Remarks: Denies fevers, chills, changes in vision/ hearing/ mood, nausea, vomiting, constipation, diarrhea. Notes being hot in her room, reproducible chest pain, SOB on 2L NC, epigastric abdominal pain, and LBP down RLE. Physical Exam Vital Signs: Vital Signs Temperature 97.3 F L 10/24/18 10:00 Pulse Rate 99 H 10/24/18 10:00 Respiratory Rate 20 10/24/18 10:00 Blood Pressure 158/89 10/24/18 10:00 O2 Sat by Pulse Oximetry (%) 98 10/23/18 21:00 Musculoskeletal: Yes: Other (General: calm AAF sitting EOB and standing bedside without AD, on supplemental O2 N/M: B shoulder flexion to 120 degrees, 4+/5 BUE / BLE with given-way weakness Extremities: no BLE pitting edema with B TEDS in place, no B calf tenderness) Labs: CBC, BMP 10/23/18 06:30 10/23/18 06:30 Imaging - Results X-ray: Report Reviewed (as per HPI) Cat Scan: Report Reviewed (as per HPI) MRI: Report Reviewed (as per HPI) Assessment/Plan Impression: 1) Deficits mobility/ ADLs 2) Deconditioning 3) Gait abnormality 4) Lumbar DDD/ DJD with HNP and stenosis (central and foraminal) causing impingement on R L4 and contacting B S1 nerves 5) COPD exacerbation and PNA 6) CHF exacerbation with hx HTN, HLD 7) IDDM, 8) R hip HO 9) Possible sacrococcygeal fx 10) Obesity 11) Up to date flu shot/ pneumovax Recommendations: 1) PT for stretching strengthening ROM functional mobility and endurance 2) Falls, safety precautions 3) Cardiopulmonary precautions 4) Diabetic precautions 5) Heat LS spine prn, consider trial lumbar corset 6) May need MONA in future if pain persists 7) DVT ppx: on hep sc 8) Denies constipation on current bowel regimen 9) Nutrition consult for obesity 10) On Nicoderm patch for recent smoking cessation 11) Consider repeat XR 11/04/18 to evaluate for possible sacral fx, versus CT pelvis/ sacrum 12) Discharge planning: she may benefit from short- course inpatient rehabilitation to improve endurance; agree with PT that she would benefit from assisted living facility once medically stable Thank you for this referral.
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
--- NOTE | 2018-10-24 16:27 | PN ---
Progress Note, Physician Chief Complaint: The patient has occasional chest pain with skipped heart beats. No SOB at rest or palpitation. Telemetry reveiwed, it showed sinus rhythm at 80-90 BPM. Occasional single VPCs. History of Present Illness: 58 year-old woman with a PMHx of DM, chronic systolic CHF EF 30-35% secondary to non-ischemic CMP admitted with fever, cough, hemotysis and leg pain. At baseline ambulates 2-3 blocks limited by SOB. Pt in ED was incidentally found to have fever 103. Complaing of hemoptysis. She has been treated for pneumonia and CHF with improvement. Atypical chest pain resolved. CXR with mild congestion. Possible PNA. ECG NSR septal RI. - Current Medication List Current Medications: Active Medications Acetaminophen (Tylenol -) 325 mg PO Q6H PRN PRN Reason: PAIN LEVEL 6-10 Last Admin: 10/23/18 06:46 Dose: 325 mg Al Hydroxide/Mg Hydroxide (Mylanta Oral Suspension -) 30 ml PO Q8H PRN PRN Reason: GI upset Last Admin: 10/23/18 22:21 Dose: 30 ml Albuterol/Ipratropium (Duoneb -) 1 amp NEB Q4H PRN PRN Reason: ASTHMA Last Admin: 10/23/18 22:33 Dose: 1 amp Amoxicillin/Clavulanate Potassium (Augmentin - 875mg Tablet) 1 tab PO BID@0800, 1730 [facility] Atorvastatin Calcium (Lipitor -) 10 mg PO HS [facility] Last Admin: 10/23/18 21:38 Dose: 10 mg Carvedilol (Coreg -) 25 mg PO BID [facility] Duloxetine HCl (Cymbalta -) 30 mg PO DAILY [facility] Last Admin: 10/24/18 10:00 Dose: 30 mg Furosemide (Lasix -) 80 mg PO DAILY [facility] Heparin Sodium (Porcine) (Heparin -) 5,000 unit SQ BID [facility] Last Admin: 10/24/18 10:00 Dose: 5,000 unit Insulin Aspart (Novolog Vial Sliding Scale -) 1 vial SQ Q4HPO [facility]; Protocol Last Admin: 10/24/18 14:10 Dose: 9 units Insulin Detemir (Levemir Vial) 50 units SQ ACBK [facility] Last Admin: 10/24/18 07:05 Dose: 50 units Losartan Potassium (Cozaar -) 25 mg PO DAILY [facility] Last Admin: 10/24/18 10:00 Dose: 25 mg Montelukast Sodium (Singulair -) 10 mg PO HS [facility] Last Admin: 10/23/18 21:38 Dose: 10 mg Nicotine (Nicoderm Patch -) 7 mg TD DAILY [facility] Last Admin: 10/24/18 10:01 Dose: 7 mg Oxycodone HCl (Roxicodone -) 5 mg PO Q6H PRN PRN Reason: PAIN LEVEL 6-10 Last Admin: 10/23/18 06:45 Dose: 5 mg Polyethylene Glycol (Miralax (For Daily Use) -) 17 gm PO BID [facility] Last Admin: 10/24/18 10:01 Dose: 17 gm Prednisone (Deltasone -) 30 mg PO BID [facility] Senna (Senna -) 1 tab PO HS [facility] Last Admin: 10/23/18 21:38 Dose: 1 tab Spironolactone (Aldactone -) 25 mg PO DAILY [facility] Last Admin: 10/24/18 10:00 Dose: 25 mg - Objective Vital Signs: Vital Signs Temperature 97.3 F L 10/24/18 10:00 Pulse Rate 99 H 10/24/18 10:00 Respiratory Rate 20 10/24/18 10:00 Blood Pressure 158/89 10/24/18 10:00 O2 Sat by Pulse Oximetry (%) 98 10/24/18 09:00 General: Well developed. Obese. No acute distress. Head: Normocephalic. Atraumatic, Eyes: PERRLA, EOMI. Sclerae anicteric. Conjunctivae clear. Neck: Supple. No JVD. No bruits. Heart: Normal S1, S2: Regular rhythm and rate. No murmur. No gallop or rub. Lungs: Symmetrical air entry. Clear to auscultation. No crackles. No wheezing or rhonchi. Abdomen: Soft. Bowel sound positive. Non tender. No masses. Extremities: No edema. No clubbing or cyanosis. PD 2+, equal bilaterally. Neuro: Intact, no focal findings. AAO X3. Labs: CBC, BMP 10/23/18 06:30 10/23/18 06:30 INR, PTT INR 1.08 (0.83-1.09) 10/20/18 11:00 Assessment/Plan 58 year-old woman with a PMHx of DM, chronic systolic CHF EF 30-35% secondary to non-ischemic CMP admitted with fever, cough, hemotysis and leg pain. At baseline ambulates 2-3 blocks limited by SOB. Pt in ED was incidentally found to have fever 103. Complaing of hemoptysis. She has been treated for pneumonia and CHF with improvement. Atypical chest pain reported. CXR with mild congestion. Possible PNA. ECG NSR septal RI. 1) Acute on chronic systolic CHF with improved dyspnea and fluid overload on IV Lasix. Lasix changed to PO 80 mg daily. Carvedilol increased to 25 mg BID for better heart rate and BP control. Continue Aldactone and Losartan. Out patient referral for prophylactic AICD if LV systolic function remains poor in 2 months. 2) HTN: BP is still elevated. May increase losartan to 50 mg daily. Carvedilol increased to 25 mg BID. Outpatient cardiac follow up. Please call us for reconsult as needed.
[2018-10-24] MEDS: AMOX TR/POT CLAV 875MG/125MG TABLETS (FP) PO SCH (17:18)
[2018-10-24] MEDS: CARVEDILOL 25 MG TABLET (FP) PO SCH (19:30)
[2018-10-24] MEDS ORDERED: PRAMIPEXOLE DIHYDROCHLORIDE 0.25 MG TABLET PO SCH (22:00)
[2018-10-24] MEDS ORDERED: CARVEDILOL 12.5 MG TABLET (FP) PO SCH (22:00)
[2018-10-24] MEDS ORDERED: CARVEDILOL 25 MG TABLET (FP) PO SCH (22:00)
[2018-10-24] MEDS: predniSONE 10 MG TABLET (UD) PO SCH (23:02)
[2018-10-24] MEDS: TOPIRAMATE 25 MG TABLET (FP) PO SCH (23:02)
[2018-10-24] MEDS: MONTELUKAST NA 10 MG TABLET PO SCH (23:03)
[2018-10-24] MEDS: ATORVASTATIN CA 10 MG TABLET (FP) PO SCH (23:03)
[2018-10-24] MEDS: SENNOSIDES 8.6MG TABLET (FP) PO SCH (23:03)
[2018-10-24] MEDS: ACETAMINOPHEN 325 MG TABLET (FP) PO PRN (23:04)
--- NOTE | 2018-10-25 01:34 | PN ---
Progress Note, Physician Chief Complaint: short of breath and cough History of Present Illness: dm 2 copd,severe,angina symptoms,morbid obesity insulin resistant steroid requiring hyperglycemia - Current Medication List Current Medications: Active Medications Acetaminophen (Tylenol -) 325 mg PO Q6H PRN PRN Reason: PAIN LEVEL 6-10 Last Admin: 10/24/18 23:04 Dose: 325 mg Al Hydroxide/Mg Hydroxide (Mylanta Oral Suspension -) 30 ml PO Q8H PRN PRN Reason: GI upset Last Admin: 10/23/18 22:21 Dose: 30 ml Albuterol/Ipratropium (Duoneb -) 1 amp NEB Q4H PRN PRN Reason: ASTHMA Last Admin: 10/23/18 22:33 Dose: 1 amp Amoxicillin/Clavulanate Potassium (Augmentin - 875mg Tablet) 1 tab PO BID@0800, 1730 [facility] Last Admin: 10/24/18 17:18 Dose: 1 tab Atorvastatin Calcium (Lipitor -) 10 mg PO HS [facility] Last Admin: 10/24/18 23:03 Dose: 10 mg Carvedilol (Coreg -) 25 mg PO BID [facility] Last Admin: 10/24/18 19:30 Dose: 25 mg Duloxetine HCl (Cymbalta -) 30 mg PO DAILY [facility] Last Admin: 10/24/18 10:00 Dose: 30 mg Furosemide (Lasix -) 80 mg PO DAILY [facility] Heparin Sodium (Porcine) (Heparin -) 5,000 unit SQ BID [facility] Last Admin: 10/24/18 23:03 Dose: 5,000 unit Insulin Aspart (Novolog Vial Sliding Scale -) 1 vial SQ [facility]; Protocol Insulin Detemir (Levemir Vial) 50 units SQ ACBK [facility] Last Admin: 10/24/18 07:05 Dose: 50 units Insulin Detemir (Levemir Vial) 15 units SQ HS [facility] Losartan Potassium (Cozaar -) 25 mg PO DAILY [facility] Last Admin: 10/24/18 10:00 Dose: 25 mg Montelukast Sodium (Singulair -) 10 mg PO HS [facility] Last Admin: 10/24/18 23:03 Dose: 10 mg Nicotine (Nicoderm Patch -) 7 mg TD DAILY [facility] Last Admin: 10/24/18 10:01 Dose: 7 mg Polyethylene Glycol (Miralax (For Daily Use) -) 17 gm PO BID [facility] Last Admin: 10/24/18 23:03 Dose: 17 gm Pramipexole Dihydrochloride (Mirapex -) 0.25 mg PO [facility] Last Admin: 10/24/18 23:02 Dose: 0.25 mg Prednisone (Deltasone -) 30 mg PO BID [facility] Last Admin: 10/24/18 23:02 Dose: 30 mg Senna (Senna -) 1 tab PO HS [facility] Last Admin: 10/24/18 23:03 Dose: 1 tab Spironolactone (Aldactone -) 25 mg PO DAILY [facility] Last Admin: 10/24/18 10:00 Dose: 25 mg Topiramate (Topamax -) 25 mg PO BID [facility] Last Admin: 10/24/18 23:02 Dose: 25 mg - Objective Vital Signs: Vital Signs Temperature 98.1 F 10/24/18 18:19 Pulse Rate 88 10/24/18 18:59 Respiratory Rate 20 10/24/18 10:00 Blood Pressure 150/105 H 10/24/18 18:59 O2 Sat by Pulse Oximetry (%) 98 10/24/18 09:00 Constitutional: Yes: Anxious Eyes: Yes: EOM Intact HENT: Yes: Normocephalic Neck: Yes: Trachea Midline Cardiovascular: Yes: Tachycardia Respiratory: Yes: On Nasal O2, Rhonchi, Tachypnea, Wheezes Gastrointestinal: Yes: Normal Bowel Sounds ...Rectal Exam: Yes: Deferred Extremities: Yes: WNL Edema: Yes Edema: LLE: 1+, RLE: 1+ Neurological: Yes: Alert, Oriented Labs: CBC, BMP 10/23/18 06:30 10/24/18 22:40 INR, PTT INR 1.08 (0.83-1.09) 10/20/18 11:00 Problem List - Problems (1) Diabetes Code(s): E11.9 - TYPE 2 DIABETES MELLITUS WITHOUT COMPLICATIONS Qualifiers: Chronic kidney disease stage: stage 2 (mild) (2) CHF (congestive heart failure) Code(s): I50.9 - HEART FAILURE, UNSPECIFIED Qualifiers: Heart failure type: unspecified Heart failure chronicity: unspecified Qualified Code(s): I50.9 - Heart failure, unspecified (3) COPD (chronic obstructive pulmonary disease) Code(s): J44.9 - CHRONIC OBSTRUCTIVE PULMONARY DISEASE, UNSPECIFIED Qualifiers: COPD type: unspecified COPD Qualified Code(s): J44.9 - Chronic obstructive pulmonary disease, unspecified (4) Consolidation of right upper lobe Code(s): J18.1 - LOBAR PNEUMONIA, UNSPECIFIED ORGANISM (5) Fever Code(s): R50.9 - FEVER, UNSPECIFIED (6) Radiculopathy of leg Code(s): M54.10 - RADICULOPATHY, SITE UNSPECIFIED (7) Abdominal pain Code(s): R10.9 - UNSPECIFIED ABDOMINAL PAIN (8) Abnormal liver enzymes Code(s): R74.8 - ABNORMAL LEVELS OF OTHER SERUM ENZYMES Assessment/Plan Current Active Problems CHF (congestive heart failure) (Acute) COPD (chronic obstructive pulmonary disease) (Acute) Consolidation of right upper lobe (Acute) Diabetes (Acute) Fever (Acute) Radiculopathy of leg (Acute) Sepsis (Acute) Abnormal Lab Results 10/24/18 10/24/18 16:30 22:40 Random Glucose 407 H* Vitamin B12 1283 H Laboratory Results - last 24 hr 10/24/18 10/24/18 10/24/18 02:11 05:33 11:25 POC Glucometer 354 222 155 Random Glucose Vitamin B12 10/24/18 10/24/18 10/24/18 14:08 16:30 17:07 POC Glucometer 273 272 Random Glucose Vitamin B12 1283 H 10/24/18 10/24/18 22:05 22:40 POC Glucometer 410 Random Glucose 407 H* Vitamin B12 plan: bgm qid novolog scale adjusted levemir bid doses as tapered steroid may require less insulin Current Medications Generic Name Dose Route Start Last Admin Trade Name Freq PRN Reason Stop Dose Admin Acetaminophen 325 mg 10/21/18 22:02 10/24/18 23:04 Tylenol - PO 325 mg Q6H PRN Administration PAIN LEVEL 6-10 Al Hydroxide/Mg Hydroxide 30 ml 10/23/18 21:34 10/23/18 22:21 Mylanta Oral Suspension - PO 30 ml Q8H PRN Administration GI upset Albuterol/Ipratropium 1 amp 10/20/18 17:03 10/23/18 22:33 Duoneb - NEB 1 amp Q4H PRN Administration ASTHMA Amoxicillin/Clavulanate Potassium 1 tab 10/24/18 17:30 10/24/18 17:18 Augmentin - 875mg Tablet PO 1 tab BID@0800,1730 [facility] Administration Atorvastatin Calcium 10 mg 10/20/18 22:00 10/24/18 23:03 Lipitor - PO 10 mg HS [facility] Administration Carvedilol 25 mg 10/24/18 19:15 10/24/18 19:30 Coreg - PO 25 mg BID [facility] Administration Duloxetine HCl 30 mg 10/22/18 16:45 10/24/18 10:00 Cymbalta - PO 30 mg DAILY [facility] Administration Furosemide 80 mg 10/25/18 10:00 Lasix - PO DAILY [facility] Heparin Sodium (Porcine) 5,000 unit 10/20/18 22:00 10/24/18 23:03 Heparin - SQ 5,000 unit BID [facility] Administration Insulin Aspart 1 vial 10/25/18 07:00 Novolog Vial Sliding Scale - SQ ACHS [facility] Protocol Insulin Detemir 50 units 10/22/18 07:00 10/24/18 07:05 Levemir Vial SQ 50 units ACBK [facility] Administration Insulin Detemir 15 units 10/25/18 22:00 Levemir Vial SQ HS [facility] Losartan Potassium 25 mg 10/21/18 10:00 10/24/18 10:00 Cozaar - PO 25 mg DAILY [facility] Administration Montelukast Sodium 10 mg 10/20/18 22:00 10/24/18 23:03 Singulair - PO 10 mg HS [facility] Administration Nicotine 7 mg 10/20/18 22:00 10/24/18 10:01 Nicoderm Patch - TD 7 mg DAILY [facility] Administration Polyethylene Glycol 17 gm 10/20/18 22:00 10/24/18 23:03 Miralax (For Daily Use) - PO 17 gm BID [facility] Administration Pramipexole Dihydrochloride 0.25 mg 10/24/18 22:00 10/24/18 23:02 Mirapex - PO 0.25 mg HS [facility] Administration Prednisone 30 mg 10/24/18 22:00 10/24/18 23:02 Deltasone - PO 30 mg BID [facility] Administration Senna 1 tab 10/20/18 22:00 10/24/18 23:03 Senna - PO 1 tab HS [facility] Administration Spironolactone 25 mg 10/22/18 10:00 10/24/18 10:00 Aldactone - PO 25 mg DAILY [facility] Administration Topiramate 25 mg 10/24/18 22:00 10/24/18 23:02 Topamax - PO 25 mg BID [facility] Administration
[2018-10-25] MEDS: INSULIN SLIDING SCALE (NOVOLOG) 1 VIAL SQ SCH ×2 (07:12→11:13)
[2018-10-25] MEDS: INSULIN (LEVEMIR) 100 UNITS/ML UNITS SQ SCH (07:12)
[2018-10-25] MEDS: AMOX TR/POT CLAV 875MG/125MG TABLETS (FP) PO SCH (08:52)
[2018-10-25] MEDS: HEPARIN NA (PORCINE) 5,000 UNITS/ML 1ML VIAL SQ SCH (09:52)
[2018-10-25] MEDS: predniSONE 10 MG TABLET (UD) PO SCH (09:52)
[2018-10-25] MEDS: SPIRONOLACTONE 25 MG TABLET (FP) PO SCH (09:53)
[2018-10-25] MEDS: CARVEDILOL 25 MG TABLET (FP) PO SCH (09:53)
[2018-10-25] MEDS: LOSARTAN POTASSIUM 25 MG TABLET PO SCH (09:53)
[2018-10-25] MEDS: POLYETHYLENE GLYCOL 3350 119 GM BTL PO SCH (09:53)
[2018-10-25] MEDS: DULoxetine HCL 30 MG CAPSULE.DR (FP) PO SCH (09:53)
[2018-10-25] MEDS: NICOTINE 7 MG/24 HOURS TOPICAL PATCH TD SCH (09:54)
[2018-10-25] MEDS: TOPIRAMATE 25 MG TABLET (FP) PO SCH (09:54)
[2018-10-25] MEDS ORDERED: FUROSEMIDE 40 MG TABLET (FP) PO SCH (10:00)
[2018-10-25] MEDS: ALBUTEROL SO4 2.5/IPRATROPIUM 0.5 INH SOL 3 ML VIAL.NEB. NEB PRN (11:36)
[2018-10-25] MEDS ORDERED: oxyCODONE HCL 5 MG TABLET PO PRN (13:01)
--- NOTE | 2018-10-25 13:05 | PN ---
Progress Note (short form) - Note Progress Note: PULMONARY Breathing better, less cough and wheezing. No further fevers. Vital Signs Period Temp Pulse Resp BP Sys/Plasencia Pulse Ox Last 24 Hr 97.6 F-98.1 F 82-96 20-20 121-157/81-114 97 Gen: NAD at rest Heart: RRR Lung: scattered rhonchi, wheezes Abd: soft, nontender Ext: no edema CBC, BMP 10/23/18 06:30 10/24/18 22:40 Active Medications Acetaminophen (Tylenol -) 325 mg PO Q6H PRN PRN Reason: PAIN LEVEL 1-5 Last Admin: 10/24/18 23:04 Dose: 325 mg Al Hydroxide/Mg Hydroxide (Mylanta Oral Suspension -) 30 ml PO Q8H PRN PRN Reason: GI upset Last Admin: 10/23/18 22:21 Dose: 30 ml Albuterol/Ipratropium (Duoneb -) 1 amp NEB Q4H PRN PRN Reason: ASTHMA Last Admin: 10/25/18 11:36 Dose: 1 amp Amoxicillin/Clavulanate Potassium (Augmentin - 875mg Tablet) 1 tab PO BID@0800, 1730 [facility] Last Admin: 10/25/18 08:52 Dose: 1 tab Atorvastatin Calcium (Lipitor -) 10 mg PO HS [facility] Last Admin: 10/24/18 23:03 Dose: 10 mg Carvedilol (Coreg -) 25 mg PO BID [facility] Last Admin: 10/25/18 09:53 Dose: 25 mg Duloxetine HCl (Cymbalta -) 30 mg PO DAILY [facility] Last Admin: 10/25/18 09:53 Dose: 30 mg Furosemide (Lasix -) 80 mg PO DAILY [facility] Last Admin: 10/25/18 09:53 Dose: 80 mg Heparin Sodium (Porcine) (Heparin -) 5,000 unit SQ BID [facility] Last Admin: 10/25/18 09:52 Dose: 5,000 unit Insulin Aspart (Novolog Vial Sliding Scale -) 1 vial SQ [facility]; Protocol Last Admin: 10/25/18 11:13 Dose: 8 unit Insulin Detemir (Levemir Vial) 50 units SQ ACBK [facility] Last Admin: 10/25/18 07:12 Dose: 50 units Insulin Detemir (Levemir Vial) 15 units SQ HS [facility] Losartan Potassium (Cozaar -) 50 mg PO DAILY [facility] Montelukast Sodium (Singulair -) 10 mg PO HS [facility] Last Admin: 10/24/18 23:03 Dose: 10 mg Nicotine (Nicoderm Patch -) 7 mg TD DAILY [facility] Last Admin: 10/25/18 09:54 Dose: 7 mg Oxycodone HCl (Roxicodone -) 5 mg PO Q6H PRN PRN Reason: PAIN LEVEL 7-10 Polyethylene Glycol (Miralax (For Daily Use) -) 17 gm PO BID [facility] Last Admin: 10/25/18 09:53 Dose: 17 gm Pramipexole Dihydrochloride (Mirapex -) 0.25 mg PO HS [facility] Last Admin: 10/24/18 23:02 Dose: 0.25 mg Prednisone (Deltasone -) 30 mg PO BID [facility] Last Admin: 10/25/18 09:52 Dose: 30 mg Senna (Senna -) 1 tab PO [facility] Last Admin: 10/24/18 23:03 Dose: 1 tab Spironolactone (Aldactone -) 25 mg PO DAILY [facility] Last Admin: 10/25/18 09:53 Dose: 25 mg Topiramate (Topamax -) 25 mg PO BID [facility] Last Admin: 10/25/18 09:54 Dose: 25 mg A/P Pneumonia Acute on Chronic Systolic Heart Failure Acute COPD Exacerbation HTN DM - continue antibiotics - prednisone taper - inhaled bronchodilators - O2 to keep SpO2 >90% - continue lasix - monitor urine output, creatinine - DVT prophylaxis
--- NOTE | 2018-10-25 13:33 | PN ---
Progress Note, Physician Chief Complaint: patient in bed no distress repeat labs orderd on prednisone taper and abx - Current Medication List Current Medications: Active Medications Acetaminophen (Tylenol -) 325 mg PO Q6H PRN PRN Reason: PAIN LEVEL 1-5 Last Admin: 10/24/18 23:04 Dose: 325 mg Al Hydroxide/Mg Hydroxide (Mylanta Oral Suspension -) 30 ml PO Q8H PRN PRN Reason: GI upset Last Admin: 10/23/18 22:21 Dose: 30 ml Albuterol/Ipratropium (Duoneb -) 1 amp NEB Q4H PRN PRN Reason: ASTHMA Last Admin: 10/25/18 11:36 Dose: 1 amp Amoxicillin/Clavulanate Potassium (Augmentin - 875mg Tablet) 1 tab PO BID@0800, 1730 [facility] Last Admin: 10/25/18 08:52 Dose: 1 tab Atorvastatin Calcium (Lipitor -) 10 mg PO HS [facility] Last Admin: 10/24/18 23:03 Dose: 10 mg Carvedilol (Coreg -) 25 mg PO BID [facility] Last Admin: 10/25/18 09:53 Dose: 25 mg Duloxetine HCl (Cymbalta -) 30 mg PO DAILY [facility] Last Admin: 10/25/18 09:53 Dose: 30 mg Furosemide (Lasix -) 80 mg PO DAILY [facility] Last Admin: 10/25/18 09:53 Dose: 80 mg Heparin Sodium (Porcine) (Heparin -) 5,000 unit SQ BID [facility] Last Admin: 10/25/18 09:52 Dose: 5,000 unit Insulin Aspart (Novolog Vial Sliding Scale -) 1 vial SQ [facility]; Protocol Last Admin: 10/25/18 11:13 Dose: 8 unit Insulin Detemir (Levemir Vial) 50 units SQ ACBK [facility] Last Admin: 10/25/18 07:12 Dose: 50 units Insulin Detemir (Levemir Vial) 15 units SQ HS [facility] Losartan Potassium (Cozaar -) 50 mg PO DAILY [facility] Montelukast Sodium (Singulair -) 10 mg PO HS [facility] Last Admin: 10/24/18 23:03 Dose: 10 mg Nicotine (Nicoderm Patch -) 7 mg TD DAILY [facility] Last Admin: 10/25/18 09:54 Dose: 7 mg Oxycodone HCl (Roxicodone -) 5 mg PO Q6H PRN PRN Reason: PAIN LEVEL 7-10 Polyethylene Glycol (Miralax (For Daily Use) -) 17 gm PO BID [facility] Last Admin: 10/25/18 09:53 Dose: 17 gm Pramipexole Dihydrochloride (Mirapex -) 0.25 mg PO HS [facility] Last Admin: 10/24/18 23:02 Dose: 0.25 mg Prednisone (Deltasone -) 30 mg PO BID [facility] Last Admin: 10/25/18 09:52 Dose: 30 mg Senna (Senna -) 1 tab PO [facility] Last Admin: 10/24/18 23:03 Dose: 1 tab Spironolactone (Aldactone -) 25 mg PO DAILY [facility] Last Admin: 10/25/18 09:53 Dose: 25 mg Topiramate (Topamax -) 25 mg PO BID [facility] Last Admin: 10/25/18 09:54 Dose: 25 mg - Objective Vital Signs: Vital Signs Temperature 97.6 F 10/25/18 10:00 Pulse Rate 82 10/25/18 10:00 Respiratory Rate 20 10/25/18 10:00 Blood Pressure 143/81 10/25/18 10:00 O2 Sat by Pulse Oximetry (%) 97 10/25/18 09:00 Constitutional: Yes: Calm Cardiovascular: Yes: Regular Rate and Rhythm, S1, S2 Respiratory: Yes: Diminished Gastrointestinal: Yes: Normal Bowel Sounds, Soft Neurological: Yes: Alert Labs: CBC, BMP 10/23/18 06:30 10/24/18 22:40 INR, PTT INR 1.08 (0.83-1.09) 10/20/18 11:00 Problem List - Problems (1) CHF (congestive heart failure) Assessment/Plan: lasix Code(s): I50.9 - HEART FAILURE, UNSPECIFIED Qualifiers: Heart failure type: unspecified Heart failure chronicity: unspecified Qualified Code(s): I50.9 - Heart failure, unspecified (2) COPD (chronic obstructive pulmonary disease) Assessment/Plan: bronchodilators prednisone taper Code(s): J44.9 - CHRONIC OBSTRUCTIVE PULMONARY DISEASE, UNSPECIFIED Qualifiers: COPD type: unspecified COPD Qualified Code(s): J44.9 - Chronic obstructive pulmonary disease, unspecified (3) Consolidation of right upper lobe Assessment/Plan: augmentin Code(s): J18.1 - LOBAR PNEUMONIA, UNSPECIFIED ORGANISM (4) Diabetes Assessment/Plan: insulin dose adjusted basedo n steroids Code(s): E11.9 - TYPE 2 DIABETES MELLITUS WITHOUT COMPLICATIONS Qualifiers: Chronic kidney disease stage: stage 2 (mild)
--- NOTE | 2018-10-25 13:38 | DS ---
Physical Examination Vital Signs: Vital Signs Temperature 97.6 F 10/25/18 10:00 Pulse Rate 82 10/25/18 10:00 Respiratory Rate 20 10/25/18 10:00 Blood Pressure 143/81 10/25/18 10:00 O2 Sat by Pulse Oximetry (%) 97 10/25/18 09:00 Constitutional: Yes: Calm Cardiovascular: Yes: Regular Rate and Rhythm, S1, S2 Respiratory: Yes: CTA Bilaterally Gastrointestinal: Yes: Normal Bowel Sounds, Soft Neurological: Yes: Alert Labs: CBC, BMP 10/23/18 06:30 10/24/18 22:40 Discharge Summary Reason For Visit: CONSOLIDATION OF RIGHT UPPER LOBE OF LUNG,CHF,SEPS Current Active Problems CHF (congestive heart failure) (Acute) COPD (chronic obstructive pulmonary disease) (Acute) Consolidation of right upper lobe (Acute) Diabetes (Acute) Fever (Acute) Radiculopathy of leg (Acute) Sepsis (Acute) Other Procedures: chest ct patchy pulm infiltrates Hospital Course: 58 F with h/o COPD (2.5 L O2 at home), CHF (on 40 mg lasix), HTN, HLD, IDDM presenting to ED with fever, cough, and leg pain. Pt initially presented to ED with lower back pain radiating to her R leg. Pt denies any recent falls or injuries. Pt denies any limitation in her ROM. Pt in ED was incidentally found to have fever 103. Pt denies any subjective fevers, though she endorses cough that is productive. Denies CP/SOB. Denies abdominal pain. Denies dysuria. patient admitted with pneumonia on iv to po abx cough prendisone taper nicotine patch for smoking cessation DM on insulin seen by endocrine acute on chronic systolic failure: lasix 80mg now po,coreg dose increased, losartan dose increased Condition: Fair - Instructions Diet, Activity, Other Instructions: prendisone 40mg po daily for 2 days ,30mg po daily for 3 days ,20mg po daily for 2 days and 10mg po daily for 2 days then stop augmentin take twice a day for 5 days Referrals: Mark Peacock MD [Staff Physician] - 2 Weeks (for follow up for chf may need AICD) Disposition: HOME - Home Medications Comprehensive Discharge Medication List: Ambulatory Orders Albuterol 2.5/Ipratropium 0.5 [Duoneb -] 1 neb NEB Q4H PRN #180 amp 05/03/17 Atorvastatin Ca [Lipitor] 10 mg PO HS #30 tab 05/03/17 Linaclotide [Linzess] 145 mcg PO DAILY #30 cap 05/03/17 Montelukast Na [Singulair -] 10 mg PO HS #30 tab 05/03/17 Esomeprazole Magnesium [Nexium 24Hr] 20 mg PO DAILY 04/20/18 Carvedilol [Coreg -] 6.25 mg PO BID #60 tablet 04/24/18 Furosemide [Lasix -] 40 mg PO DAILY #30 tablet 04/24/18 Insulin (Levemir) [Levemir Vial] 15 units SQ ACBK units 04/24/18 Losartan Potassium [Cozaar -] 25 mg PO DAILY #30 tablet 04/24/18 Magnesium Hydrox 2400MG/30Ml [Milk of Magnesia -] 30 ml PO Q8H PRN #1 bot Polyethylene Glycol 3350 [Miralax 119 gm Btl -] 17 gm PO DAILY #1 bottle Sennosides [Senna -] 1 tab PO HS #30 tablet 05/02/18 Dapagliflozin Propanediol [Farxiga] 10 mg PO DAILY 09/20/18 Albuterol 0.083% Nebulizer [place] [Ventolin 0.083% Nebulizer Soln -] 1 amp NEB Q4H PRN amp 09/26/18 Insulin Sliding Scale [Novolog Vial Sliding Scale -] 1 vial SQ [facility] 10/20/18 Nicotine Patch [Nicoderm Patch -] 1 patch TD DAILY 10/20/18
[2018-10-25 13:54] LABS: BASO % 0.2 % (0-2.0); EOS % 0.3 % (0-4.5); HEMATOCRIT 47.4 % (32.4-45.2); HEMOGLOBIN 15.6 GM/dL (10.7-15.3); LYMPH % 4.5 % (8-40); MCH 30.6 pg (25.7-33.7); MEAN CELL VOLUME 92.7 fl (80-96); MEAN PLT VOLUME 8.2 fl (7.5-11.1); MONO % 4.8 % (3.8-10.2); NEUT % 90.2 % (42.8-82.8); PLATELET COUNT 213 K/MM3 (134-434); RBC 5.11 M/mm3 (3.60-5.2); RDW 16.7 % (11.6-15.6); WHITE BLOOD COUNT 10.7 K/mm3 (4.0-10.0)
[2018-10-25 15:51] VITALS: BP 126/100; PULSE 126; TEMP 97.8
[2018-10-25] MEDS ORDERED: INSULIN (LEVEMIR) 100 UNITS/ML UNITS SQ SCH (22:00)
[2018-10-26 04:14] LABS: SERUM IRON SATURATION 27 % (15-55); TOTAL IRON BINDING CAPACITY 363 ug/dL (250-450); UIBC 266 ug/dL (131-425)
[2018-10-26] MEDS ORDERED: predniSONE 20 MG TABLET (UD) PO SCH (10:00)
[2018-10-26] MEDS ORDERED: LOSARTAN POTASSIUM 25 MG TABLET PO SCH (10:00)
== END 2018-10-25 17:13 | disposition home or self-care (01) | DRG 871 ==
LOC: JER 11:03 → JERBED 14:27 → J4S 21:03
PROVIDERS: ADMIT Family Medicine; ATTEND Family Medicine
DX: A41.9 Sepsis, unspecified organism (principal); J18.1 Lobar pneumonia, unspecified organism; I50.23 Acute on chronic systolic (congestive) heart failure; R04.2 Hemoptysis; I13.0 Hypertensive heart and chronic kidney disease with heart failure and stage 1 through stage 4 chronic kidney disease, or unspecified chronic kidney disease; J44.1 Chronic obstructive pulmonary disease with (acute) exacerbation; I42.9 Cardiomyopathy, unspecified; R50.9 Fever, unspecified; M54.10 Radiculopathy, site unspecified; Z68.36 Body mass index [BMI] 36.0-36.9, adult; E66.9 Obesity, unspecified; E78.5 Hyperlipidemia, unspecified; Z79.4 Long term (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 of insulin; N18.2 Chronic kidney disease, stage 2 (mild); E87.70 Fluid overload, unspecified; G43.909 Migraine, unspecified, not intractable, without status migrainosus; E11.42 Type 2 diabetes mellitus with diabetic polyneuropathy; M48.061 Spinal stenosis, lumbar region without neurogenic claudication; D72.829 Elevated white blood cell count, unspecified; E11.22 Type 2 diabetes mellitus with diabetic chronic kidney disease; E11.65 Type 2 diabetes mellitus with hyperglycemia; K21.9 Gastro-esophageal reflux disease without esophagitis
CPT/HCPCS: 36415; 71045-TC-FY; 71250-TC; 72100-TC-FY; 72148-TC; 73523-TC-FY; 73562-TC-RT-FY; 80053; 81003; 81015; 82550; 82607; 82803; 82947; 82962; 83540; 83550; 83605; 83735; 83880; 84443; 84484; 85025; 85027; 85610; 85651; 85730; 86140; 87040; 87086; 87186; 87205; 87804; 87899; 93005; 93010; 94640; 97116-GP; 97161-GP; 99285-25; J0131; J1644; J7030

== ENCOUNTER 2018-11-07 11:10 | Inpatient (IN) | payer OTHER ==
[2018-11-07 13:36] LABS: EOS % 1.1 % (0-4.5); HEMATOCRIT 48.5 % (32.4-45.2); HEMOGLOBIN 15.2 GM/dL (10.7-15.3); LYMPH % 15.8 % (8-40); MCH 29.1 pg (25.7-33.7); MCHC 31.4 g/dl (32.0-36.0); MEAN CELL VOLUME 92.7 fl (80-96); MEAN PLT VOLUME 8.7 fl (7.5-11.1); NEUT % 74.1 % (42.8-82.8); PLATELET COUNT 193 K/MM3 (134-434); RBC 5.23 M/mm3 (3.60-5.2)
[2018-11-07 13:37] LABS: INR 1.1 (0.83-1.09)
[2018-11-07 13:40] LABS: ACTIVATED PTT 27.6 SECONDS (25.2-36.5)
[2018-11-07 13:59] LABS: ALBUMIN 2.8 g/dl (3.4-5.0); ALK PHOS 332 U/L (45-117); ANION GAP 11 MMOL/L (8-16); BILIRUBIN,TOTAL 0.6 mg/dL (0.2-1); BLOOD UREA NITROGEN 36 mg/dL (7-18); CALCIUM 8.2 mg/dL (8.5-10.1); CHLORIDE 106 mmol/L (98-107); CO2 22 mmol/L (21-32); CREATININE 1.1 mg/dL (0.55-1.3); N-TERMINAL BNP 5069.2 pg/ml (5-125); POTASSIUM 4.6 mmol/L (3.5-5.1); SGOT/AST 21 U/L (15-37); SGPT/ALT 105 U/L (13-61); SODIUM 139 mmol/L (136-145); TOT PROT 5.8 g/dl (6.4-8.2)
[2018-11-07 14:03] LABS: GLUCOSE,RANDOM 409 mg/dL (74-106)
[2018-11-07] MEDS ORDERED: FUROSEMIDE 40 MG/4 ML INJECTABLE VIAL IVPUSH ONE (14:06)
[2018-11-07] MEDS ORDERED: ASPIRIN 325 MG TABLET PO ONE (14:06)
--- NOTE | 2018-11-07 14:17 | PDOC ---
History of Present Illness - General Chief Complaint: Chest Pain Stated Complaint: SOB Time Seen by Provider: 11/07/18 12:32 - History of Present Illness Initial Comments: 11/07/18 14:34 The patient is a 58 year old female, with a significant past medical history of COPD (2.5 L O2 at home), CHF (on 40 mg lasix), HTN, HLD, IDDM, who presents to the emergency department with 3 days of centralized chest pain and increased lower extremity swelling. She states the chest pain is present with exertion and alleviated with rest. The patient denies shortness of breath, headache and dizziness. The patient denies fever, chills, nausea, vomit, diarrhea and constipation. The patient denies dysuria, frequency, urgency and hematuria. Allergies: NKDA PCP - Dr. Polo +- Past History - Past Medical History Allergies/Adverse Reactions: Allergies Allergy/AdvReac Type Severity Reaction Status Date / Time No Known Allergies Allergy Verified 10/11/18 19:50 Home Medications: Ambulatory Orders Atorvastatin Ca [Lipitor] 10 mg PO HS #30 tab 05/03/17 Montelukast Na [Singulair -] 10 mg PO HS #30 tab 05/03/17 Esomeprazole Magnesium [Nexium 24Hr] 20 mg PO DAILY 04/20/18 Insulin (Levemir) [Levemir Vial] 15 units SQ ACBK units 04/24/18 Magnesium Hydrox 2400MG/30Ml [Milk of Magnesia -] 30 ml PO Q8H PRN #1 bot Polyethylene Glycol 3350 [Miralax 119 gm Btl -] 17 gm PO DAILY #1 bottle Sennosides [Senna -] 1 tab PO HS #30 tablet 05/02/18 Albuterol 0.083% Nebulizer Chayito [Ventolin 0.083% Nebulizer Soln -] 1 amp NEB Q4H PRN amp 09/26/18 Insulin Sliding Scale [Novolog Vial Sliding Scale -] 1 vial SQ ASDIR 10/20/18 Albuterol 2.5/Ipratropium 0.5 [Duoneb -] 1 neb NEB Q4H PRN #180 amp 10/25/18 Carvedilol [Coreg -] 25 mg PO BID #60 tablet MDD 2 10/25/18 Furosemide [Lasix -] 80 mg PO DAILY #60 tablet MDD 2 10/25/18 Insulin (Levemir) [Levemir Vial] 20 unit SQ HS #1 vial 10/25/18 Losartan Potassium [Cozaar -] 50 mg PO DAILY #60 tablet MDD 2 10/25/18 Nicotine Patch [Nicoderm Patch -] 7 mg TD DAILY #30 patch MDD 1 10/25/18 Pramipexole Dihydrochloride [Mirapex -] 0.25 mg PO HS #30 tablet MDD 1 10/25/18 Prednisone 10 mg PO AM #30 tablet MDD 1 10/25/18 Spironolactone [Aldactone -] 25 mg PO DAILY #30 tablet MDD 1 10/25/18 Topiramate [Topamax -] 25 mg PO BID #14 tablet MDD 2 10/25/18 Asthma: Yes Cancer: No Cardiac Disorders: Yes COPD: Yes CHF: Yes DVT: No Diabetes: Yes GI Disorders: Yes (GERD) Disorders: No HTN: Yes Hypercholesterolemia: Yes Liver Disease: No Thyroid Disease: No - Surgical History Cholecystectomy: Yes Orthopedic Surgery: (lt shoulder repair) - Immunization History Immunization Up to Date: Yes - Suicide/Smoking/Psychosocial Hx Smoking History: Never smoked Have you smoked in the past 12 months: No Number of Cigarettes Smoked Daily: 10 If you are a former smoker, when did you quit?: 3 WEEKS AGO Cigars Per Day: 0 Information on smoking cessation initiated: No 'Breaking Loose' booklet given: 10/20/18 Hx Alcohol Use: No Drug/Substance Use Hx: No Substance Use Type: None Hx Substance Use Treatment: No Review of Systems - Review of Systems Comments:: 11/07/18 14:35 "GENERAL/CONSTITUTIONAL: No fever or chills. No weakness. HEAD, EYES, EARS, NOSE AND THROAT: No change in vision. No ear pain or discharge. No sore throat. GASTROINTESTINAL: No nausea, vomiting, diarrhea or constipation. GENITOURINARY: No dysuria, frequency, or change in urination. CARDIOVASCULAR: (+) chest pain, No shortness of breath. RESPIRATORY: No cough, wheezing, or hemoptysis. MUSCULOSKELETAL: (+) LE swelling and difficulty ambulating. No joint or muscle pain. No neck or back pain. SKIN: No rash NEUROLOGIC: No headache, vertigo, loss of consciousness, or change in strength/ sensation. ENDOCRINE: No increased thirst. No abnormal weight change. HEMATOLOGIC/LYMPHATIC: No anemia, easy bleeding, or history of blood clots. ALLERGIC/IMMUNOLOGIC: No hives or skin allergy." *Physical Exam - Vital Signs Last Vital Signs Temp Pulse Resp BP Pulse Ox 98.6 F 82 18 140/103 H 98 11/07/18 11:31 11/07/18 11:31 11/07/18 11:31 11/07/18 11:31 11/07/18 11:38 - Physical Exam Comments: 11/07/18 14:35 GENERAL: Awake, alert, and fully oriented, in no acute distress EYES: PERRLA, EOMI, sclera anicteric, conjunctiva clear ENT: Moist mucosa NECK: Normal ROM, supple, no lymphadenopathy, JVD, or masses LUNGS: Breath sounds equal, clear to auscultation bilaterally. No wheezes, and no crackles HEART: Regular rate and rhythm, normal S1 and S2, no murmurs, rubs or gallops ABDOMEN: Soft, nontender, normoactive bowel sounds. No guarding, no rebound. No masses EXTREMITIES: (+) 3+ pitting edema to bilateral lower extremities up to the knees , symmetric. Normal range of motion, No cords, erythema, or tenderness BACK: No midline spinal tenderness in cervical/thoracic/lumbar region NEUROLOGICAL: Normal speech, cranial nerves intact, equal strength and sensation b/l SKIN: Warm, Dry, normal turgor, no rashes or lesions noted. Heart Score/ECG Review #1 11/07/18 14:37 Twelve-lead EKG was performed and reviewed by me. Normal sinus rhythm, rate 84. Right axis deviation. No ST elevations. #2 11/07/18 14:43 Twelve-lead EKG was performed and reviewed by me. Sinus rhythm, rate 83. Right axis deviation. No ST elevations. Unchanged compared to EKG done earlier today. ED Treatment Course - LABORATORY CBC & Chemistry Diagram: 11/07/18 13:08 11/07/18 13:08 - ADDITIONAL ORDERS Additional order review: Laboratory Results 11/07/18 11/07/18 11/07/18 13:08 13:08 13:08 PT with INR 13.00 INR 1.10 H PTT (Actin FS) 27.6 Sodium 139 Potassium 4.6 Chloride 106 Carbon Dioxide 22 Anion Gap 11 BUN 36 H Creatinine 1.1 Creat Clearance w eGFR 51.20 Random Glucose 409 H* Calcium 8.2 L Magnesium 2.0 Total Bilirubin 0.6 AST 21 ALT 105 H Alkaline Phosphatase 332 H Troponin I 0.07 H B-Natriuretic Peptide 5069.2 H Total Protein 5.8 L Albumin 2.8 L 11/07/18 13:08 RBC 5.23 H MCV 92.7 MCHC 31.4 L RDW 19.0 H MPV 8.7 Neutrophils % 74.1 Lymphocytes % 15.8 D Monocytes % 8.0 Eosinophils % 1.1 D Basophils % 1.0 D - RADIOLOGY Radiology Studies Ordered: Category Date Time Status CHEST X-RAY PORTABLE* [RAD] Stat Radiology 11/07/18 12:50 Taken Medical Decision Making - Medical Decision Making 11/07/18 14:14 58yo F with MMP including CHF on lasix, CAD presents to the ED with 2 days of progressive CP at rest and with exertion as well as LE edema. Vitals with elevated BP, otherwise wnl. Exam with diminshed BS at the bases and b/l calf 2+ pitting edema. Labs with BNP 5000 and trop 0.07, likely acute on chronic CHF exacerbation. Low likelihood PE as pt has no SOB, tachycardia, hypoxa. Pt given lasix 80mg IV and full dose of ASA. Case discussed with Dr. Johnson, pt admitted to in tele Case discussed in detail with admitting physician including history, physical exam and ancillary studies. Admitting physician has assumed care for the patient, will follow all pending diagnostics and will complete the evaluation and treatment. *DC/Admit/Observation/Transfer Diagnosis at time of Disposition: CHF (congestive heart failure) - Discharge Dispostion Condition at time of disposition: Stable Decision to Admit order Date/Time: Decision to Admit Order Category Date Time Status Decision to Admit to Hospital Routine Admission 11/07/18 14:08 Active - Referrals - Patient Instructions - Post Discharge Activity - Attestations Physician Attestion: 11/07/18 14:17 I, Dr. Chintan Pennington MD, attest that this document has been prepared under my direction and personally reviewed by me in its entirety. I further attest, that it accurately reflects all work, treatment, procedures and medical decision -making performed by me.
[2018-11-07] MEDS ORDERED: ASPIRIN 325 MG TABLET ONE (14:36)
[2018-11-07] MEDS ORDERED: FUROSEMIDE 40 MG/4 ML INJECTABLE VIAL ONE (14:37)
--- NOTE | 2018-11-07 15:01 | HP ---
Admitting History and Physical - Admission Chief Complaint: came in for son for 4 days. s/p fall History of Present Illness: 58 yr old female with HTN,CHF<COPD on oxygen IDDM came in with sob for 4 days, orthopnea and chest pressure on exertion she also fell twice while trying to get into the bus bc of knee and hip pain in er got 80mg iv pasix and aspirn elevated BNP History Source: Patient, Friend - Past Medical History Cardiovascular: Yes: CHF, HTN, Hyperlipdemia. No: AFIB, CAD Pulmonary: Yes: Asthma, COPD, O2 Dependent. No: Pneumonia, Previously Intubated , Pulmonary Embolus, Pulmonary Fibrosis, Sleep Apnea Gastrointestinal: Yes: GERD. No: Cancer Renal/: Yes: Renal Inusuff Endocrine: Yes: Diabetes Mellitus - Smoking History Smoking history: Never smoked Have you smoked in the past 12 months: No Aproximately how many cigarettes per day: 10 If you are a former smoker, when did you quit?: 3 WEEKS AGO - Alcohol/Substance Use Hx Alcohol Use: No History of Substance Use: reports: None - Social History ADL: Independent History of Recent Travel: No Home Medications - Allergies Allergies/Adverse Reactions: Allergies Allergy/AdvReac Type Severity Reaction Status Date / Time No Known Allergies Allergy Verified 10/11/18 19:50 - Home Medications Home Medications: Ambulatory Orders Atorvastatin Ca [Lipitor] 10 mg PO HS #30 tab 05/03/17 Montelukast Na [Singulair -] 10 mg PO HS #30 tab 05/03/17 Esomeprazole Magnesium [Nexium 24Hr] 20 mg PO DAILY 04/20/18 Insulin (Levemir) [Levemir Vial] 15 units SQ ACBK units 04/24/18 Magnesium Hydrox 2400MG/30Ml [Milk of Magnesia -] 30 ml PO Q8H PRN #1 bot Polyethylene Glycol 3350 [Miralax 119 gm Btl -] 17 gm PO DAILY #1 bottle Sennosides [Senna -] 1 tab PO HS #30 tablet 05/02/18 Albuterol 0.083% Nebulizer Chayito [Ventolin 0.083% Nebulizer Soln -] 1 amp NEB Q4H PRN amp 09/26/18 Insulin Sliding Scale [Novolog Vial Sliding Scale -] 1 vial SQ ASDIR 10/20/18 Albuterol 2.5/Ipratropium 0.5 [Duoneb -] 1 neb NEB Q4H PRN #180 amp 10/25/18 Carvedilol [Coreg -] 25 mg PO BID #60 tablet MDD 2 10/25/18 Furosemide [Lasix -] 80 mg PO DAILY #60 tablet MDD 2 10/25/18 Insulin (Levemir) [Levemir Vial] 20 unit SQ HS #1 vial 10/25/18 Losartan Potassium [Cozaar -] 50 mg PO DAILY #60 tablet MDD 2 10/25/18 Nicotine Patch [Nicoderm Patch -] 7 mg TD DAILY #30 patch MDD 1 10/25/18 Pramipexole Dihydrochloride [Mirapex -] 0.25 mg PO HS #30 tablet MDD 1 10/25/18 Prednisone 10 mg PO AM #30 tablet MDD 1 10/25/18 Spironolactone [Aldactone -] 25 mg PO DAILY #30 tablet MDD 1 10/25/18 Topiramate [Topamax -] 25 mg PO BID #14 tablet MDD 2 10/25/18 Family Disease History - Family Disease History Family Disease History: Diabetes: Father, Brother Review of Systems - Review of Systems Respiratory: reports: Orthopnea, SOB, SOB on Exertion Musculoskeletal: reports: Other (leg swelling) Physical Examination Vital Signs: Vital Signs Temperature 98.2 F 11/07/18 14:40 Pulse Rate 88 11/07/18 14:40 Respiratory Rate 20 11/07/18 14:40 Blood Pressure 121/103 H 11/07/18 14:40 O2 Sat by Pulse Oximetry (%) 100 11/07/18 14:40 Constitutional: Yes: Calm Cardiovascular: Yes: Regular Rate and Rhythm, S1, S2 Respiratory: Yes: Diminished (at base s more on left side) Edema: Yes Labs: CBC, BMP 11/07/18 13:08 11/07/18 13:08 Imaging - Results Chest X-ray: Image Reviewed (cardiomegaly,pleural effusion) Problem List - Problems (1) CHF (congestive heart failure) Assessment/Plan: tele echo iv lasix BID inc bnp with inc pleural effusion daily weight monitor renal function cardiology eval trend troponin lipid profile Code(s): I50.9 - HEART FAILURE, UNSPECIFIED (2) Abnormal liver enzymes Assessment/Plan: maybe secondary to hepatic congestion trend lft Code(s): R74.8 - ABNORMAL LEVELS OF OTHER SERUM ENZYMES (3) Diabetes Assessment/Plan: sliding scale insulin hgba1c Code(s): E11.9 - TYPE 2 DIABETES MELLITUS WITHOUT COMPLICATIONS Qualifiers: Diabetes mellitus type: type 2 Diabetes mellitus technician terminal and repeater insulin use: with technician terminal and repeater use Diabetes mellitus complication status: with unspecified complications Qualified Code(s): E11.8 - Type 2 diabetes mellitus with unspecified complications; Z79.4 - senior care (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 of insulin (4) COPD (chronic obstructive pulmonary disease) Assessment/Plan: oxygen and bronchodilalators Code(s): J44.9 - CHRONIC OBSTRUCTIVE PULMONARY DISEASE, UNSPECIFIED Qualifiers: COPD type: unspecified COPD Qualified Code(s): J44.9 - Chronic obstructive pulmonary disease, unspecified
--- NOTE | 2018-11-07 16:05 | CON.CARD ---
Consult Consult Specialty:: Cardiology Referred by:: Dr. Valente Reason for Consultation:: CHF and Chest pain - History of Present Illness Chief Complaint: Chest pain, SOB and leg edema. History of Present Illness: 58 year old obese woman with a PMHx of HTN, HLD, IDDM, non-ischemic cardiomyopathy (normal coronary arteries from cardiac cath in October 2016), chronic systolic CHF with LVEF 30-35% from echocardiogram on 10/12/2018, COPD ( 2.5 L O2 at home), admitted 11/07/2018 with 3 days of worsening SOB, orthopnea and leg edema and 2 days persistent centralized chest pain. She states the chest pain has been persistent. The patient denies palpitation, dizziness, syncope or near syncope. BNP 5,069, troponin 0.07, BUN 36, Creat 1.1 Echocardiogram 10/12/2018: Normal LV size with severe global LV systolic dysfunction. LVEF = 30-35%. Normal RV. Mild LA dilatation. Moderate MR and TR. - History Source History Provided By: Patient, Medical Record Limitations to Obtaining History: No Limitations - Past Medical History Cardio/Vascular: Yes: CHF, HTN, Hyperlipdemia. No: AFIB, CAD Pulmonary: Yes: Asthma, COPD, O2 Dependent. No: Pneumonia, Previously Intubated , Pulmonary Embolus, Pulmonary Fibrosis, Sleep Apnea Gastrointestinal: Yes: GERD. No: Cancer Renal/: Yes: Renal Inusuff Endocrine: Yes: Diabetes Mellitus - Alcohol/Substance Use Hx Alcohol Use: No History of Substance Use: reports: None - Smoking History Smoking history: Never smoked Have you smoked in the past 12 months: No Aproximately how many cigarettes per day: 10 If you are a former smoker, when did you quit?: 3 WEEKS AGO - Social History Usual Living Arrangement: With Spouse ADL: Independent History of Recent Travel: No Home Medications - Allergies Allergies/Adverse Reactions: Allergies Allergy/AdvReac Type Severity Reaction Status Date / Time No Known Allergies Allergy Verified 10/11/18 19:50 - Home Medications Home Medications: Ambulatory Orders Atorvastatin Ca [Lipitor] 10 mg PO HS #30 tab 05/03/17 Montelukast Na [Singulair -] 10 mg PO HS #30 tab 05/03/17 Esomeprazole Magnesium [Nexium 24Hr] 20 mg PO DAILY 04/20/18 Insulin (Levemir) [Levemir Vial] 15 units SQ ACBK units 04/24/18 Magnesium Hydrox 2400MG/30Ml [Milk of Magnesia -] 30 ml PO Q8H PRN #1 bot Polyethylene Glycol 3350 [Miralax 119 gm Btl -] 17 gm PO DAILY #1 bottle Sennosides [Senna -] 1 tab PO HS #30 tablet 05/02/18 Albuterol 0.083% Nebulizer Chayito [Ventolin 0.083% Nebulizer Soln -] 1 amp NEB Q4H PRN amp 09/26/18 Insulin Sliding Scale [Novolog Vial Sliding Scale -] 1 vial SQ ASDIR 10/20/18 Albuterol 2.5/Ipratropium 0.5 [Duoneb -] 1 neb NEB Q4H PRN #180 amp 10/25/18 Carvedilol [Coreg -] 25 mg PO BID #60 tablet MDD 2 10/25/18 Furosemide [Lasix -] 80 mg PO DAILY #60 tablet MDD 2 10/25/18 Insulin (Levemir) [Levemir Vial] 20 unit SQ HS #1 vial 10/25/18 Losartan Potassium [Cozaar -] 50 mg PO DAILY #60 tablet MDD 2 10/25/18 Nicotine Patch [Nicoderm Patch -] 7 mg TD DAILY #30 patch MDD 1 10/25/18 Pramipexole Dihydrochloride [Mirapex -] 0.25 mg PO HS #30 tablet MDD 1 10/25/18 Prednisone 10 mg PO AM #30 tablet MDD 1 10/25/18 Spironolactone [Aldactone -] 25 mg PO DAILY #30 tablet MDD 1 10/25/18 Topiramate [Topamax -] 25 mg PO BID #14 tablet MDD 2 10/25/18 Family Disease History - Family Disease History Family Disease History: Diabetes: Father, Brother Review of Systems - Review of Systems Constitutional: reports: No Symptoms Eyes: reports: No Symptoms HENT: reports: No Symptoms Neck: reports: No Symptoms Cardiovascular: reports: Chest Pain, Shortness of Breath Respiratory: reports: SOB, SOB on Exertion Vital Signs: Vital Signs Temperature 98.2 F 11/07/18 14:40 Pulse Rate 88 11/07/18 14:40 Respiratory Rate 20 11/07/18 14:40 Blood Pressure 121/103 H 11/07/18 14:40 O2 Sat by Pulse Oximetry (%) 100 11/07/18 14:40 General: Well developed. Chronic ill. Mild acute distress due to SOB. Head: Normocephalic. Atraumatic, Eyes: PERRLA, EOMI. Sclerae anicteric. Conjunctivae clear. Neck: Supple. No JVD. No bruits. Heart: Normal S1, S2: Regular rhythm and rate. Lungs: Symmetrical poor air entry. Bibasilar crackles. No wheezing or rhonchi. Abdomen: Soft. Bowel sound positive. Non tender. No masses. Extremities: 2+ edema. No clubbing or cyanosis. PD 2+, equal bilaterally. - Other Data Labs, Other Data: CBC, BMP 11/07/18 13:08 11/07/18 13:08 INR, PTT INR 1.10 (0.83-1.09) H 11/07/18 13:08 Troponin, BNP 11/07/18 11/07/18 13:08 13:08 Troponin I 0.07 H B-Natriuretic Peptide 5069.2 H Troponin, BNP 11/07/18 11/07/18 13:08 13:08 Troponin I 0.07 H B-Natriuretic Peptide 5069.2 H Assessment/Plan 58 year old obese woman with a PMHx of HTN, HLD, IDDM, non-ischemic cardiomyopathy (normal coronary arteries from cardiac cath in October 2016), chronic systolic CHF with LVEF 30-35% from echocardiogram on 10/12/2018, COPD ( 2.5 L O2 at home), admitted 11/07/2018 with 3 days of worsening SOB, orthopnea and leg edema and 2 days persistent centralized chest pain. She states the chest pain has been persistent. The patient denies palpitation, dizziness, syncope or near syncope. BNP 5,069, troponin 0.07, BUN 36, Creat 1.1 Echocardiogram 10/12/2018: Normal LV size with severe global LV systolic dysfunction. LVEF = 30-35%. Normal RV. Mild LA dilatation. Moderate MR and TR. 1) Acute on chronic systolic CHF with evidenc of fluid overload and elevated BNP. Start IV Lasix 40 mg BID. Monitor Is, Os, daily weight, renal function and electrolytes. Resume/Continue carvedilol, losartan and Aldactone. No need to repeat echo. 2) Chest pain with mildly elevated troponin. Central chest pain with some local tenderness, likely non cardiac. Mildly elevated troponin is due to CHF exacerbation. She had normal coronary arteries from cardiac cath in October 2016. But small vessel CAD could also cause chest pain in the setting of acute systolic CHF. Start Imdur 30 mg daily. Continue aspirin and atorvastatin. We will follow
[2018-11-07] MEDS: INSULIN SLIDING SCALE (NOVOLOG) 1 VIAL SQ SCH ×2 (17:45→21:20)
[2018-11-07] MEDS: PRAMIPEXOLE DIHYDROCHLORIDE 0.25 MG TABLET PO SCH (21:19)
[2018-11-07] MEDS: TOPIRAMATE 25 MG TABLET (FP) PO SCH (21:19)
[2018-11-07] MEDS: CARVEDILOL 12.5 MG TABLET (FP) PO SCH (21:19)
[2018-11-07] MEDS: HEPARIN NA (PORCINE) 5,000 UNITS/ML 1ML VIAL SQ SCH (21:19)
[2018-11-07] MEDS: INSULIN (LEVEMIR) 100 UNITS/ML UNITS SQ SCH (21:21)
[2018-11-08] MEDS ORDERED: MORPHINE SULFATE 2 MG/ML VIAL IVPUSH ONE (04:31)
[2018-11-08 06:45] LABS: BASO % 0.7 % (0-2.0); HEMATOCRIT 46.7 % (32.4-45.2); HEMOGLOBIN 14.6 GM/dL (10.7-15.3); LYMPH % 22.4 % (8-40); MCHC 31.3 g/dl (32.0-36.0); MEAN CELL VOLUME 92.6 fl (80-96); MEAN PLT VOLUME 8.5 fl (7.5-11.1); MONO % 7.9 % (3.8-10.2); PLATELET COUNT 206 K/MM3 (134-434); RBC 5.04 M/mm3 (3.60-5.2); RDW 18.1 % (11.6-15.6); WHITE BLOOD COUNT 5.6 K/mm3 (4.0-10.0)
[2018-11-08] MEDS: FUROSEMIDE 40 MG/4 ML INJECTABLE VIAL IVPUSH SCH ×2 (06:46→14:16)
[2018-11-08] MEDS: INSULIN SLIDING SCALE (NOVOLOG) 1 VIAL SQ SCH ×4 (06:47→21:28)
[2018-11-08] MEDS: INSULIN (LEVEMIR) 100 UNITS/ML UNITS SQ SCH ×2 (07:00→21:26)
[2018-11-08 07:12] LABS: ALBUMIN 2.5 g/dl (3.4-5.0); ALK PHOS 211 U/L (45-117); ANION GAP 6 MMOL/L (8-16); BILIRUBIN,TOTAL 0.7 mg/dL (0.2-1); BLOOD UREA NITROGEN 35 mg/dL (7-18); CALCIUM 7.8 mg/dL (8.5-10.1); CHLORIDE 110 mmol/L (98-107); CHOLESTEROL 120 mg/dL (50-200); CO2 26 mmol/L (21-32); CREATININE 0.9 mg/dL (0.55-1.3); GLUCOSE,RANDOM 98 mg/dL (74-106); HDL CHOLESTEROL 39 mg/dL (40-60); PHOSPHOROUS 3.4 mg/dL (2.5-4.9); POTASSIUM 3.9 mmol/L (3.5-5.1); SGOT/AST 26 U/L (15-37); SGPT/ALT 89 U/L (13-61); SODIUM 142 mmol/L (136-145); TOT PROT 5.4 g/dl (6.4-8.2); TRIGLYCERIDES 65 mg/dL (0-150)
[2018-11-08] MEDS ORDERED: PT OWN MED DRAWER 7, Y5N ONE ×2 (08:51→21:31)
[2018-11-08] MEDS: ASPIRIN COATED 81 MG TABLET.EC PO SCH (09:53)
[2018-11-08] MEDS: TOPIRAMATE 25 MG TABLET (FP) PO SCH ×2 (09:53→21:32)
[2018-11-08] MEDS: CARVEDILOL 12.5 MG TABLET (FP) PO SCH ×2 (09:54→21:26)
[2018-11-08] MEDS: LOSARTAN POTASSIUM 50 MG TABLET (FP) PO SCH (09:54)
[2018-11-08] MEDS: POLYETHYLENE GLYCOL 3350 119 GM BTL PO SCH (09:54)
[2018-11-08] MEDS: HEPARIN NA (PORCINE) 5,000 UNITS/ML 1ML VIAL SQ SCH ×2 (09:54→21:27)
--- NOTE | 2018-11-08 11:48 | EKG ---
Test Reason : Blood Pressure : / mmHG Vent. Rate : 084 BPM Atrial Rate : 084 BPM P-R Int : 164 ms QRS Dur : 088 ms QT Int : 406 ms P-R-T Axes : 042 120 078 degrees QTc Int : 479 ms NORMAL SINUS RHYTHM POSSIBLE LEFT ATRIAL ENLARGEMENT RIGHT AXIS DEVIATION ABNORMAL ECG WHEN COMPARED WITH ECG OF 22-OCT-2018 04:34, PREMATURE VENTRICULAR COMPLEXES ARE NO LONGER PRESENT ABERRANT CONDUCTION IS NO LONGER PRESENT Confirmed by HALEIGH MANSFIELD, LIVAN ([id number]) on 11/08/2018 11:48:19 AM Referred By: Confirmed By:LIVAN RICARDO MD
--- NOTE | 2018-11-08 11:49 | EKG ---
Test Reason : Blood Pressure : / mmHG Vent. Rate : 084 BPM Atrial Rate : 084 BPM P-R Int : 162 ms QRS Dur : 090 ms QT Int : 404 ms P-R-T Axes : 046 128 069 degrees QTc Int : 477 ms NORMAL SINUS RHYTHM WITH SINUS ARRHYTHMIA POSSIBLE LEFT ATRIAL ENLARGEMENT RIGHT AXIS DEVIATION ABNORMAL ECG WHEN COMPARED WITH ECG OF 07-NOV-2018 12:11, NO SIGNIFICANT CHANGE WAS FOUND Confirmed by HALEIGH MANSFIELD, LIVAN ([id number]) on 11/08/2018 11:48:42 AM Referred By: Christina SPARROW Confirmed By:LIVAN RICARDO MD
--- NOTE | 2018-11-08 12:18 | PN ---
Progress Note, Physician Chief Complaint: patient seen and examined weight decreasing on iv lasix bid sob and orthpnea improving leg edema improving - Current Medication List Current Medications: Active Medications Albuterol Sulfate (Ventolin 0.083% Nebulizer Soln -) 1 amp NEB Q6H PRN PRN Reason: SHORT OF BREATH/WHEEZING Aspirin (Ecotrin -) 81 mg PO DAILY [facility] Last Admin: 11/08/18 09:53 Dose: 81 mg Carvedilol (Coreg -) 12.5 mg PO BID [facility] Last Admin: 11/08/18 09:54 Dose: 12.5 mg Furosemide (Lasix Injection -) 40 mg IVPUSH BID@0600,1400 [facility] Last Admin: 11/08/18 06:46 Dose: 40 mg Heparin Sodium (Porcine) (Heparin -) 5,000 unit SQ BID [facility] Last Admin: 11/08/18 09:54 Dose: 5,000 unit Insulin Aspart (Novolog Vial Sliding Scale -) 1 vial SQ [facility]; Protocol Last Admin: 11/08/18 11:45 Dose: Not Given Insulin Detemir (Levemir Vial) 10 units SQ [facility] Last Admin: 11/07/18 21:21 Dose: 10 units Insulin Detemir (Levemir Vial) 15 units SQ DAILY@0700 [facility] Isosorbide Mononitrate (Imdur -) 30 mg PO DAILY [facility] Losartan Potassium (Cozaar -) 50 mg PO DAILY [facility] Last Admin: 11/08/18 09:54 Dose: 50 mg Polyethylene Glycol (Miralax (For Daily Use) -) 17 gm PO DAILY [facility] Last Admin: 11/08/18 09:54 Dose: Not Given Pramipexole Dihydrochloride (Mirapex -) 0.25 mg PO HS [facility] Last Admin: 11/07/18 21:19 Dose: 0.25 mg Spironolactone (Aldactone -) 25 mg PO DAILY [facility] Topiramate (Topamax -) 25 mg PO BID [facility] Last Admin: 11/08/18 09:53 Dose: 25 mg - Objective Vital Signs: Vital Signs Temperature 98.2 F 11/08/18 09:51 Pulse Rate 85 11/08/18 09:51 Respiratory Rate 18 11/08/18 09:51 Blood Pressure 160/96 11/08/18 09:51 O2 Sat by Pulse Oximetry (%) 100 11/07/18 21:00 Constitutional: Yes: Calm Cardiovascular: Yes: Regular Rate and Rhythm, S1, S2 Respiratory: Yes: CTA Bilaterally Gastrointestinal: Yes: Normal Bowel Sounds, Soft Edema: Yes (improving) Neurological: Yes: Alert, Oriented Labs: CBC, BMP 11/08/18 05:30 11/08/18 05:30 INR, PTT INR 1.10 (0.83-1.09) H 11/07/18 13:08 Problem List - Problems (1) CHF (congestive heart failure) Assessment/Plan: tele echo iv lasix BID inc bnp with inc pleural effusion daily weight- trending down monitor renal function cardiology eval noted trend troponin- imdur started lipid profile aldactone cozaar BNP is trending Code(s): I50.9 - HEART FAILURE, UNSPECIFIED (2) Abnormal liver enzymes Assessment/Plan: secondary to hepatic congestion lft is trending down Code(s): R74.8 - ABNORMAL LEVELS OF OTHER SERUM ENZYMES (3) Diabetes Assessment/Plan: sliding scale insulin hgba1c pending Code(s): E11.9 - TYPE 2 DIABETES MELLITUS WITHOUT COMPLICATIONS Qualifiers: Diabetes mellitus type: type 2 Diabetes mellitus snf insulin use: with snf use Diabetes mellitus complication status: with unspecified complications Qualified Code(s): E11.8 - Type 2 diabetes mellitus with unspecified complications; Z79.4 - care home (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 of insulin (4) COPD (chronic obstructive pulmonary disease) Assessment/Plan: oxygen and bronchodilalators Code(s): J44.9 - CHRONIC OBSTRUCTIVE PULMONARY DISEASE, UNSPECIFIED Qualifiers: COPD type: unspecified COPD Qualified Code(s): J44.9 - Chronic obstructive pulmonary disease, unspecified
--- NOTE | 2018-11-08 12:24 | ECHO ---
Name: RISSA, NANCY Exam:Adult Echocardiogram Study Date: 11/08/2018 08:40 AM Age: 58 yrs Reason For Study: EF Height: 63 in Weight: 200 lb BSA: 1.9 m2 MMode/2D Measurements & Calculations IVSd: 1.1 cm Ao root diam: 3.1 cm LVIDd: 5.2 cm LA dimension: 3.4 cm LVIDs: 4.3 cm LVPWd: 1.2 cm EDV(Teich): 127.7 ml LVOT diam: 2.0 cm ESV(Teich): 84.1 ml LAV (MOD-bp): 79.4 ml Doppler Measurements & Calculations MV E max tito: 99.9 cm/sec Ao V2 max: 114.0 cm/sec MV A max tito: 33.5 cm/sec Ao max P.2 mmHg MV E/A: 3.0 AI P1/2t: 580.8 msec MV dec time: 0.12 sec EAN(V,D): 1.6 cm2 AI max tito: 276.9 cm/sec LV V1 max P.4 mmHg AI max P.7 mmHg LV V1 max: 59.7 cm/sec AI dec slope: 139.6 cm/sec2 MR max tito: 519.0 cm/sec TR max tito: 243.4 cm/sec MR max P.9 mmHg TR max P.3 mmHg PA V2 max: 62.4 cm/sec Med Peak E' Tito: 6.5 cm/sec PA max P.6 mmHg Med E/e': 15.3 Lat Peak E' Tito: 9.8 cm/sec Lat E/e': 10.2 PI Vmax: 237.5 cm/sec Procedure A complete two-dimensional transthoracic echocardiogram was performed (2D, M-mode, Doppler and color flow Doppler). Left Ventricle The left ventricle is normal in size. Left ventricular systolic function is severely reduced. Ejectio n Fraction = 20-25%. There is severe global hypokinesis of the left ventricle. Right Ventricle The right ventricle is mildly dilated. The right ventricular systolic function is mildly reduced. Atria The left atrium is mildly dilated. The right atrium is mildly dilated. Mitral Valve There is moderate mitral regurgitation. Tricuspid Valve There is moderate tricuspid regurgitation. Right ventricular systolic pressure is normal. Aortic Valve No hemodynamically significant valvular aortic stenosis. No aortic regurgitation is present. Pulmonic Valve There is no pulmonic valvular regurgitation. Great Vessels The aortic root is normal size. Pericardium/Pleura There is no pericardial effusion. Interpretation Summary Left ventricular systolic function is severely reduced. There is severe global hypokinesis of the left ventricle. The right ventricle is mildly dilated. The right ventricular systolic function is mildly reduced. The left atrium is mildly dilated. The right atrium is mildly dilated. There is moderate mitral regurgitation. There is moderate tricuspid regurgitation. MD Abhinav Monreal 11/08/2018 12:23 PM
--- NOTE | 2018-11-08 13:06 | CON.PULM ---
Consult Consult Specialty:: PULMONARY Referred by:: Dr Valente Reason for Consultation:: shortness of breath - History of Present Illness Chief Complaint: chest pain History of Present Illness: 58yo female with h/o HTN, DM, COPD, chronic hypoxic respiratory failure on home O2, LV systolic dysfunction who was admitted with chest discomfort and increasing leg swelling. Also with dyspnea on exertion but without significant cough or wheezing. No fevers, chills or sweats. CXR done showing increased pulmonary vascular congestion, started on lasix with some improvement in symptoms. - History Source History Provided By: Patient, Medical Record Limitations to Obtaining History: No Limitations - Past Medical History Cardio/Vascular: Yes: CHF, HTN, Hyperlipdemia. No: AFIB, CAD Pulmonary: Yes: Asthma, COPD, O2 Dependent. No: Pneumonia, Previously Intubated , Pulmonary Embolus, Pulmonary Fibrosis, Sleep Apnea Gastrointestinal: Yes: GERD. No: Cancer Renal/: Yes: Renal Inusuff Endocrine: Yes: Diabetes Mellitus - Alcohol/Substance Use Hx Alcohol Use: No History of Substance Use: reports: None - Smoking History Smoking history: Never smoked Have you smoked in the past 12 months: No Aproximately how many cigarettes per day: 10 If you are a former smoker, when did you quit?: 3 WEEKS AGO - Social History Usual Living Arrangement: With Spouse ADL: Independent History of Recent Travel: No Home Medications - Allergies Allergies/Adverse Reactions: Allergies Allergy/AdvReac Type Severity Reaction Status Date / Time No Known Allergies Allergy Verified 10/11/18 19:50 - Home Medications Home Medications: Ambulatory Orders Atorvastatin Ca [Lipitor] 10 mg PO HS #30 tab 05/03/17 Montelukast Na [Singulair -] 10 mg PO HS #30 tab 05/03/17 Esomeprazole Magnesium [Nexium 24Hr] 20 mg PO DAILY 04/20/18 Insulin (Levemir) [Levemir Vial] 15 units SQ ACBK units 04/24/18 Magnesium Hydrox 2400MG/30Ml [Milk of Magnesia -] 30 ml PO Q8H PRN #1 bot Polyethylene Glycol 3350 [Miralax 119 gm Btl -] 17 gm PO DAILY #1 bottle Sennosides [Senna -] 1 tab PO HS #30 tablet 05/02/18 Albuterol 0.083% Nebulizer [place] [Ventolin 0.083% Nebulizer Soln -] 1 amp NEB Q4H PRN amp 09/26/18 Insulin Sliding Scale [Novolog Vial Sliding Scale -] 1 vial SQ ASDIR 10/20/18 Albuterol 2.5/Ipratropium 0.5 [Duoneb -] 1 neb NEB Q4H PRN #180 amp 10/25/18 Carvedilol [Coreg -] 25 mg PO BID #60 tablet MDD 2 10/25/18 Furosemide [Lasix -] 80 mg PO DAILY #60 tablet MDD 2 10/25/18 Insulin (Levemir) [Levemir Vial] 20 unit SQ HS #1 vial 10/25/18 Losartan Potassium [Cozaar -] 50 mg PO DAILY #60 tablet MDD 2 10/25/18 Nicotine Patch [Nicoderm Patch -] 7 mg TD DAILY #30 patch MDD 1 10/25/18 Pramipexole Dihydrochloride [Mirapex -] 0.25 mg PO HS #30 tablet MDD 1 10/25/18 Prednisone 10 mg PO AM #30 tablet MDD 1 10/25/18 Spironolactone [Aldactone -] 25 mg PO DAILY #30 tablet MDD 1 10/25/18 Topiramate [Topamax -] 25 mg PO BID #14 tablet MDD 2 10/25/18 Family Disease History - Family Disease History Family Disease History: Diabetes: Father, Brother Review of Systems - Review of Systems Constitutional: denies: Chills, Fever Eyes: denies: Recent Change in Vision HENT: denies: Nasal Congestion, Throat Pain Neck: denies: Stiffness, Tenderness Cardiovascular: reports: Chest Pain, Edema, Shortness of Breath. denies: Palpitations Respiratory: denies: Cough, Hemoptysis, Wheezing Gastrointestinal: denies: Abdominal Pain, Nausea, Vomiting Genitourinary: denies: Dysuria, Hematuria Endocrine: denies: Unexplained Weight Loss Physical Exam Vital Sings: Vital Signs Temperature 98.2 F 11/08/18 09:51 Pulse Rate 85 11/08/18 09:51 Respiratory Rate 18 11/08/18 09:51 Blood Pressure 160/96 11/08/18 09:51 O2 Sat by Pulse Oximetry (%) 100 11/07/18 21:00 Constitutional: Yes: Calm Eyes: Yes: Conjunctiva Clear, EOM Intact HENT: Yes: Atraumatic, Normocephalic Neck: Yes: Supple, Trachea Midline Cardiovascular: Yes: Regular Rate and Rhythm Respiratory: Yes: Diminished (decreased breath sounds at the bases) ...Clubbing: No Gastrointestinal: Yes: Normal Bowel Sounds, Soft. No: Tenderness Edema: Yes Neurological: Yes: Alert, Oriented Labs: CBC, BMP 11/08/18 05:30 11/08/18 05:30 Imaging - Results Chest X-ray: Report Reviewed, Image Reviewed (pulmonary vascular congestion) Problem List - Problems (1) Acute on chronic systolic (congestive) heart failure Code(s): I50.23 - ACUTE ON CHRONIC SYSTOLIC (CONGESTIVE) HEART FAILURE (2) COPD (chronic obstructive pulmonary disease) Code(s): J44.9 - CHRONIC OBSTRUCTIVE PULMONARY DISEASE, UNSPECIFIED Qualifiers: COPD type: unspecified COPD Qualified Code(s): J44.9 - Chronic obstructive pulmonary disease, unspecified (3) Diabetes Code(s): E11.9 - TYPE 2 DIABETES MELLITUS WITHOUT COMPLICATIONS Qualifiers: Diabetes mellitus type: type 2 Diabetes mellitus 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 helper insulin use: with snf use Diabetes mellitus complication status: with unspecified complications Qualified Code(s): E11.8 - Type 2 diabetes mellitus with unspecified complications; Z79.4 - termite 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 (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 of insulin (4) HTN (hypertension) Code(s): I10 - ESSENTIAL (PRIMARY) HYPERTENSION Qualifiers: Hypertension type: essential hypertension Qualified Code(s): I10 - Essential (primary) hypertension Assessment/Plan Acute on Chronic Systolic Heart Failure +Troponins Chronic Hypoxic Respiratory Failure COPD HTN DM - IV lasix - monitor urine output, creatinine - daily weights - O2 to keep Spo2 >90% - inhaled bronchodilators as needed - can defer systemic steroids at this time - DVT prophylaxis Thank you for this consult Alan Rosales MD
--- NOTE | 2018-11-08 13:36 | CONS ---
DATE OF CONSULTATION: 11/08/2018 REFERRING PHYSICIAN: Elizabeth Valente MD HISTORY OF PRESENT ILLNESS: The patient is a 58-year-old woman with past medical history of congestive heart failure, COPD, insulin-dependent diabetes who was recently discharged from [facility] and was readmitted following a fall. The patient apparently fell on steps getting onto a bus. She suffered injuries to both of her knees and on admission underwent x-rays of both knees, which showed degenerative changes but no fracture. Vascular calcifications were noted. The patient also had x-rays of bilateral hips, which showed some degenerative changes but no fracture. Patient underwent ultrasound of the bilateral lower extremities, which demonstrated no evidence of deep vein thrombosis. Blood work on admission, she had elevated blood sugar of 409, sodium 139, potassium 4.6, chloride 106, CO2 was 22, elevated BUN of 36, creatinine 1.1. Troponin was borderline at 0.07. BNP was elevated at over 5000. CBC: WBC normal at 7, hemoglobin 15.2, platelet count 193. Repeat blood work done today, BUN stable of 35, creatinine 0.9, sodium 142, potassium 3.9, chloride 110, CO2 is 26. Her CBC was stable with WBCs 5.6, hemoglobin 14.6, and platelet count of over 200,000. The patient has not had any physical therapy that has been documented, but last visit she was walking over 200 feet with physical therapy at a supervision level. She lives with her daughter and apparently has a few flights of stairs to enter. She is currently complaining of knee discomfort. PAST MEDICAL HISTORY: Significant for COPD, hypertension, congestive heart failure, hyperlipidemia, gastroesophageal reflux disease, renal insufficiency, diabetes, and osteoarthritis. SOCIAL HISTORY: Lives with her daughter in an apartment with a few flights of stairs to enter. No tobacco currently but apparently a former tobacco user 1/2 pack per day as recently as a month. REVIEW OF SYSTEMS: She denies any headache, any lightheadedness, dizziness, any blurry vision or double vision, any chest pain. She does feel shortness of breath with exertion. No shortness of breath at rest. No abdominal discomfort. There is swelling in the lower extremities. Knee pain more than hip and back discomfort. No numbness or tingling. No fever or chills. Some weight gain. No skin rash. PHYSICAL EXAMINATION: General: An overweight woman seen lying in bed. She is in no acute distress. HEENT: She is normocephalic and atraumatic. extraocular muscles appear intact. Neck: Supple. Extremities: Without any calf tenderness but there is quite a bit of edema in the lower extremities +1 to +2. Skin: No skin rash. Neuromuscular: She is awake, alert, and cooperative. Cranial nerves 2-12 are grossly intact. Fairly good strength and range in the upper extremities but a lot of weakness in the lower extremities. Has 2/5-3/5 hip girdle strength. Knee extensors 3/5. She has mild and lateral joint line tenderness in both knees as well as over the patella with good range of motion. Good dorsiflexion and plantar flexion with at least 4/5 strength. Normal sensation to light touch. Symmetric reflexes. Not able to stand or ambulate. No assistive device available. OVERALL IMPRESSION: 1. Deficits in mobility, activities of daily living. 2. Deconditioning. 3. Bilateral knee pain status post fall, probable contusion with underlying osteoarthritis. 4. Congestive heart failure. 5. Renal insufficiency. 6. Unlikely chronic obstructive pulmonary disease. 7. Diabetic on insulin. 8. Former tobacco user. 9. Renal insufficiency. 10. Elevated risk for deep vein thrombosis due to immobility. 11. Elevated risk for skin breakdown due to immobility. PLAN/SUGGESTION: 1. Physical therapy at the bedside to include bed mobility, transfers, gait training, strengthening, reconditioning. Family training as appropriate. 2. Out of bed to chair with assistance. 3. Tylenol for knee pain. 4. Agree with subcutaneous heparin for DVT prophylaxis until more mobile. 5. May need inpatient rehabilitation in a alf facility as she does have stairs at home. 6. Cardiopulmonary precautions. 7. Safety fall precautions. Thank you very much for this consultation. MAIA STEVENSON M.D. JONATHAN/[id number]
[2018-11-08] MEDS: SPIRONOLACTONE 25 MG TABLET (FP) PO SCH (14:16)
[2018-11-08] MEDS: ISOSORBIDE MONONITRATE 30 MG TAB.SR.24H (FP) PO SCH (14:16)
[2018-11-08] MEDS: NICOTINE 7 MG/24 HOURS TOPICAL PATCH TD SCH (14:16)
--- NOTE | 2018-11-08 16:07 | PN ---
Progress Note, Physician Chief Complaint: The patient looks tired at the time of exam. She reports no recurrent chest pain , shortness of breath at rest, palpitation or dizziness. Leg edema persists. Telemetry reviewed, it showed sinus rhythm at 85 BPM. Rare VPCs and 4 ventricular beats noted. History of Present Illness: 58 year old obese woman with a PMHx of HTN, HLD, IDDM, non-ischemic cardiomyopathy (normal coronary arteries from cardiac cath in October 2016), chronic systolic CHF with LVEF 30-35% from echocardiogram on 10/12/2018, COPD ( 2.5 L O2 at home), admitted 11/07/2018 with 3 days of worsening SOB, orthopnea and leg edema and 2 days persistent centralized chest pain. She states the chest pain has been persistent. The patient denies palpitation, dizziness, syncope or near syncope. BNP 5,069, troponin 0.07, BUN 36, Creat 1.1 Echocardiogram 10/12/2018: Normal LV size with severe global LV systolic dysfunction. LVEF = 30-35%. Normal RV. Mild LA dilatation. Moderate MR and TR. Repeat echo 11/08/2018: Normal LV size with severe global LV systolic dysfunction. LVEF = 20-25%. Normal RV. Mild LA dilatation. Moderate MR and TR. - Current Medication List Current Medications: Active Medications Albuterol Sulfate (Ventolin 0.083% Nebulizer Soln -) 1 amp NEB Q6H PRN PRN Reason: SHORT OF BREATH/WHEEZING Aspirin (Ecotrin -) 81 mg PO DAILY [facility] Last Admin: 11/08/18 09:53 Dose: 81 mg Carvedilol (Coreg -) 12.5 mg PO BID [facility] Last Admin: 11/08/18 09:54 Dose: 12.5 mg Furosemide (Lasix Injection -) 40 mg IVPUSH BID@0600,1400 [facility] Last Admin: 11/08/18 14:16 Dose: 40 mg Heparin Sodium (Porcine) (Heparin -) 5,000 unit SQ BID [facility] Last Admin: 11/08/18 09:54 Dose: 5,000 unit Insulin Aspart (Novolog Vial Sliding Scale -) 1 vial SQ [facility]; Protocol Last Admin: 11/08/18 11:45 Dose: Not Given Insulin Detemir (Levemir Vial) 10 units SQ HS [facility] Last Admin: 11/07/18 21:21 Dose: 10 units Insulin Detemir (Levemir Vial) 15 units SQ DAILY@0700 [facility] Isosorbide Mononitrate (Imdur -) 30 mg PO DAILY [facility] Last Admin: 11/08/18 14:16 Dose: 30 mg Losartan Potassium (Cozaar -) 50 mg PO DAILY [facility] Last Admin: 11/08/18 09:54 Dose: 50 mg Nicotine (Nicoderm Patch -) 7 mg TD DAILY [facility] Last Admin: 11/08/18 14:16 Dose: 7 mg Polyethylene Glycol (Miralax (For Daily Use) -) 17 gm PO DAILY [facility] Last Admin: 11/08/18 09:54 Dose: Not Given Pramipexole Dihydrochloride (Mirapex -) 0.25 mg PO HS [facility] Last Admin: 11/07/18 21:19 Dose: 0.25 mg Spironolactone (Aldactone -) 25 mg PO DAILY [facility] Last Admin: 11/08/18 14:16 Dose: 25 mg Topiramate (Topamax -) 25 mg PO BID [facility] Last Admin: 11/08/18 09:53 Dose: 25 mg - Objective Vital Signs: Vital Signs Temperature 97.7 F 11/08/18 14:00 Pulse Rate 81 11/08/18 14:00 Respiratory Rate 18 11/08/18 09:51 Blood Pressure 134/101 H 11/08/18 14:00 O2 Sat by Pulse Oximetry (%) 97 11/08/18 09:55 General: Well developed. Chronic ill. Mild acute distress due to SOB. Head: Normocephalic. Atraumatic, Eyes: PERRLA, EOMI. Sclerae anicteric. Conjunctivae clear. Neck: Supple. No JVD. No bruits. Heart: Normal S1, S2: Regular rhythm and rate. Lungs: Symmetrical poor air entry. Bibasilar crackles. No wheezing or rhonchi. Abdomen: Soft. Bowel sound positive. Non tender. No masses. Extremities: 2+ edema. No clubbing or cyanosis. Labs: CBC, BMP 11/08/18 05:30 11/08/18 05:30 INR, PTT INR 1.10 (0.83-1.09) H 11/07/18 13:08 Assessment/Plan 58 year old obese woman with a PMHx of HTN, HLD, IDDM, non-ischemic cardiomyopathy (normal coronary arteries from cardiac cath in October 2016), chronic systolic CHF with LVEF 30-35% from echocardiogram on 10/12/2018, COPD ( 2.5 L O2 at home), admitted 11/07/2018 with 3 days of worsening SOB, orthopnea and leg edema and 2 days persistent centralized chest pain. She states the chest pain has been persistent. The patient denies palpitation, dizziness, syncope or near syncope. BNP 5,069, troponin 0.07, BUN 36, Creat 1.1 Echocardiogram 10/12/2018: Normal LV size with severe global LV systolic dysfunction. LVEF = 30-35%. Normal RV. Mild LA dilatation. Moderate MR and TR. Repeat echo 11/08/2018: Normal LV size with severe global LV systolic dysfunction. LVEF = 20-25%. Normal RV. Mild LA dilatation. Moderate MR and TR. 1) Acute on chronic systolic CHF with evidence of fluid overload and elevated BNP. LV systolic function has worsened. Increase IV Lasix to 80 mg BID. Monitor Is, Os, daily weight, renal function and electrolytes. Increase carvedilol to 25 mg BID. Continue losartan and Aldactone. Should have prophylactic ICD evaluation. 2) Chest pain with mildly elevated troponin. Central chest pain with some local tenderness, likely non cardiac. Mildly elevated troponin is due to CHF exacerbation. She had normal coronary arteries from cardiac cath in October 2016. But small vessel CAD could also cause chest pain in the setting of acute systolic CHF. Coontinue Imdur 30 mg daily. Continue aspirin and atorvastatin. We will follow
[2018-11-08] MEDS: ALBUTEROL SO4 0.083% IH SOL 2.5 MG/3 ML VIAL.NEB. NEB PRN (18:16)
[2018-11-08] MEDS ORDERED: ACETAMINOPHEN 325 MG TABLET (FP) PO ONE (21:02)
[2018-11-08] MEDS: PRAMIPEXOLE DIHYDROCHLORIDE 0.25 MG TABLET PO SCH (21:32)
[2018-11-09] MEDS ORDERED: KETOROLAC TROMETHAMINE 15 MG/ML VIAL IM ONE (03:25)
[2018-11-09] MEDS: FUROSEMIDE 40 MG/4 ML INJECTABLE VIAL IVPUSH SCH ×2 (06:01→16:00)
[2018-11-09] MEDS: INSULIN SLIDING SCALE (NOVOLOG) 1 VIAL SQ SCH ×4 (06:01→22:52)
[2018-11-09] MEDS: INSULIN (LEVEMIR) 100 UNITS/ML UNITS SQ SCH ×2 (06:03→22:53)
[2018-11-09 06:30] LABS: BASO % 0.5 % (0-2.0); EOS % 2.6 % (0-4.5); HEMATOCRIT 43.9 % (32.4-45.2); HEMOGLOBIN 13.9 GM/dL (10.7-15.3); LYMPH % 21.5 % (8-40); MCH 29.4 pg (25.7-33.7); MCHC 31.6 g/dl (32.0-36.0); MEAN CELL VOLUME 93.2 fl (80-96); MEAN PLT VOLUME 8.2 fl (7.5-11.1); MONO % 9.4 % (3.8-10.2); PLATELET COUNT 185 K/MM3 (134-434); RBC 4.71 M/mm3 (3.60-5.2); RDW 18.5 % (11.6-15.6); WHITE BLOOD COUNT 4.4 K/mm3 (4.0-10.0)
[2018-11-09 07:05] LABS: ALBUMIN 2.4 g/dl (3.4-5.0); ALK PHOS 196 U/L (45-117); ANION GAP 10 MMOL/L (8-16); BILIRUBIN,TOTAL 0.6 mg/dL (0.2-1); BLOOD UREA NITROGEN 34 mg/dL (7-18); CALCIUM 7.6 mg/dL (8.5-10.1); CHLORIDE 107 mmol/L (98-107); CO2 22 mmol/L (21-32); CREATININE 0.9 mg/dL (0.55-1.3); GLUCOSE,RANDOM 204 mg/dL (74-106); POTASSIUM 4.4 mmol/L (3.5-5.1); SGOT/AST 33 U/L (15-37); SGPT/ALT 68 U/L (13-61); SODIUM 139 mmol/L (136-145); TOT PROT 5.1 g/dl (6.4-8.2)
[2018-11-09] MEDS ORDERED: PT OWN MED DRAWER 7, Y5N ONE ×3 (08:52→22:17)
[2018-11-09] MEDS: ASPIRIN COATED 81 MG TABLET.EC PO SCH (10:37)
[2018-11-09] MEDS: ISOSORBIDE MONONITRATE 30 MG TAB.SR.24H (FP) PO SCH (10:37)
[2018-11-09] MEDS: TOPIRAMATE 25 MG TABLET (FP) PO SCH ×2 (10:37→22:52)
[2018-11-09] MEDS: CARVEDILOL 12.5 MG TABLET (FP) PO SCH (10:37)
[2018-11-09] MEDS: SPIRONOLACTONE 25 MG TABLET (FP) PO SCH (10:37)
[2018-11-09] MEDS: NICOTINE 7 MG/24 HOURS TOPICAL PATCH TD SCH (10:38)
[2018-11-09] MEDS: HEPARIN NA (PORCINE) 5,000 UNITS/ML 1ML VIAL SQ SCH ×2 (10:38→22:53)
[2018-11-09] MEDS: LOSARTAN POTASSIUM 50 MG TABLET (FP) PO SCH (10:38)
--- NOTE | 2018-11-09 11:33 | PN ---
Progress Note, Physician History of Present Illness: PULMONARY ALERT,FEELING BETTER,LESS DYSPNEIC - Current Medication List Current Medications: Active Medications Albuterol Sulfate (Ventolin 0.083% Nebulizer Soln -) 1 amp NEB Q6H PRN PRN Reason: SHORT OF BREATH/WHEEZING Last Admin: 11/08/18 18:16 Dose: 1 amp Aspirin (Ecotrin -) 81 mg PO DAILY [facility] Last Admin: 11/09/18 10:37 Dose: 81 mg Carvedilol (Coreg -) 12.5 mg PO BID [facility] Last Admin: 11/09/18 10:37 Dose: 12.5 mg Furosemide (Lasix Injection -) 40 mg IVPUSH BID@0600,1400 [facility] Last Admin: 11/09/18 06:01 Dose: 40 mg Heparin Sodium (Porcine) (Heparin -) 5,000 unit SQ BID [facility] Last Admin: 11/09/18 10:38 Dose: 5,000 unit Insulin Aspart (Novolog Vial Sliding Scale -) 1 vial SQ [facility]; Protocol Last Admin: 11/09/18 06:01 Dose: Not Given Insulin Detemir (Levemir Vial) 10 units SQ [facility] Last Admin: 11/08/18 21:26 Dose: 10 units Insulin Detemir (Levemir Vial) 15 units SQ DAILY@0700 [facility] Last Admin: 11/09/18 06:03 Dose: 15 units Isosorbide Mononitrate (Imdur -) 30 mg PO DAILY [facility] Last Admin: 11/09/18 10:37 Dose: 30 mg Losartan Potassium (Cozaar -) 50 mg PO DAILY [facility] Last Admin: 11/09/18 10:38 Dose: 50 mg Nicotine (Nicoderm Patch -) 7 mg TD DAILY [facility] Last Admin: 11/09/18 10:38 Dose: 7 mg Polyethylene Glycol (Miralax (For Daily Use) -) 17 gm PO DAILY [facility] Last Admin: 11/08/18 09:54 Dose: Not Given Pramipexole Dihydrochloride (Mirapex -) 0.25 mg PO HS [facility] Last Admin: 11/08/18 21:32 Dose: 0.25 mg Spironolactone (Aldactone -) 25 mg PO DAILY [facility] Last Admin: 11/09/18 10:37 Dose: 25 mg Topiramate (Topamax -) 25 mg PO BID [facility] Last Admin: 11/09/18 10:37 Dose: 25 mg - Objective Vital Signs: Vital Signs Temperature 98 F 11/09/18 09:00 Pulse Rate 84 11/09/18 09:00 Respiratory Rate 20 11/09/18 09:00 Blood Pressure 129/90 11/09/18 09:00 O2 Sat by Pulse Oximetry (%) 100 11/09/18 09:00 Constitutional: Yes: Well Nourished, Calm Eyes: Yes: WNL HENT: Yes: WNL Neck: Yes: WNL Cardiovascular: Yes: Regular Rate and Rhythm, S1, S2 Respiratory: Yes: Rales (BIBASILAR CRACKLES) Gastrointestinal: Yes: Normal Bowel Sounds, Soft Extremities: Yes: WNL Edema: Yes Labs: CBC, BMP 11/09/18 05:30 11/09/18 05:30 INR, PTT INR 1.10 (0.83-1.09) H 11/07/18 13:08 Problem List - Problems (1) Chronic hypoxemic respiratory failure Code(s): J96.11 - CHRONIC RESPIRATORY FAILURE WITH HYPOXIA Assessment/Plan Problem List - Problems (1) Acute on chronic systolic (congestive) heart failure Code(s): I50.23 - ACUTE ON CHRONIC SYSTOLIC (CONGESTIVE) HEART FAILURE (2) COPD (chronic obstructive pulmonary disease) Code(s): J44.9 - CHRONIC OBSTRUCTIVE PULMONARY DISEASE, UNSPECIFIED Qualifiers: COPD type: unspecified COPD Qualified Code(s): J44.9 - Chronic obstructive pulmonary disease, unspecified (3) Diabetes Code(s): E11.9 - TYPE 2 DIABETES MELLITUS WITHOUT COMPLICATIONS Qualifiers: Diabetes mellitus type: type 2 Diabetes mellitus chcf insulin use: with chcf use Diabetes mellitus complication status: with unspecified complications Qualified Code(s): E11.8 - Type 2 diabetes mellitus with unspecified complications; 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
--- NOTE | 2018-11-09 12:12 | PN ---
Progress Note, Physician Chief Complaint: patient seen and examined awake alert breathing better leg swelling improving as well - Current Medication List Current Medications: Active Medications Albuterol Sulfate (Ventolin 0.083% Nebulizer Soln -) 1 amp NEB Q6H PRN PRN Reason: SHORT OF BREATH/WHEEZING Last Admin: 11/08/18 18:16 Dose: 1 amp Aspirin (Ecotrin -) 81 mg PO DAILY [facility] Last Admin: 11/09/18 10:37 Dose: 81 mg Carvedilol (Coreg -) 25 mg PO BID [facility] Furosemide (Lasix Injection -) 40 mg IVPUSH BID@0600,1400 [facility] Last Admin: 11/09/18 06:01 Dose: 40 mg Heparin Sodium (Porcine) (Heparin -) 5,000 unit SQ BID [facility] Last Admin: 11/09/18 10:38 Dose: 5,000 unit Insulin Aspart (Novolog Vial Sliding Scale -) 1 vial SQ [facility]; Protocol Last Admin: 11/09/18 06:01 Dose: Not Given Insulin Detemir (Levemir Vial) [address] [facility] Last Admin: 11/08/18 21:26 Dose: 10 units Insulin Detemir (Levemir Vial) 15 units SQ DAILY@0700 [facility] Last Admin: 11/09/18 06:03 Dose: 15 units Isosorbide Mononitrate (Imdur -) 30 mg PO DAILY [facility] Last Admin: 11/09/18 10:37 Dose: 30 mg Losartan Potassium (Cozaar -) 50 mg PO DAILY [facility] Last Admin: 11/09/18 10:38 Dose: 50 mg Nicotine (Nicoderm Patch -) 7 mg TD DAILY [facility] Last Admin: 11/09/18 10:38 Dose: 7 mg Polyethylene Glycol (Miralax (For Daily Use) -) 17 gm PO DAILY [facility] Last Admin: 11/08/18 09:54 Dose: Not Given Pramipexole Dihydrochloride (Mirapex -) 0.25 mg PO HS [facility] Last Admin: 11/08/18 21:32 Dose: 0.25 mg Spironolactone (Aldactone -) 25 mg PO DAILY [facility] Last Admin: 11/09/18 10:37 Dose: 25 mg Topiramate (Topamax -) 25 mg PO BID [facility] Last Admin: 11/09/18 10:37 Dose: 25 mg - Objective Vital Signs: Vital Signs Temperature 98 F 11/09/18 09:00 Pulse Rate 84 11/09/18 09:00 Respiratory Rate 20 11/09/18 09:00 Blood Pressure 129/90 11/09/18 09:00 O2 Sat by Pulse Oximetry (%) 100 11/09/18 09:00 Constitutional: Yes: Calm Cardiovascular: Yes: S1, S2 Respiratory: Yes: Rales Gastrointestinal: Yes: Normal Bowel Sounds, Soft Edema: Yes (improving) Neurological: Yes: Alert, Oriented Labs: CBC, BMP 11/09/18 05:30 11/09/18 05:30 INR, PTT INR 1.10 (0.83-1.09) H 11/07/18 13:08 Problem List - Problems (1) CHF (congestive heart failure) Assessment/Plan: tele echo done severly reduced systolic function and global hypokinesis iv lasix BID daily weight- trending down coreg 25mg bid cozaar aldactone Code(s): I50.9 - HEART FAILURE, UNSPECIFIED (2) Abnormal liver enzymes Assessment/Plan: secondary to hepatic congestion lft is trending down Code(s): R74.8 - ABNORMAL LEVELS OF OTHER SERUM ENZYMES (3) Diabetes Assessment/Plan: sliding scale insulin hgba1c 11.1 Code(s): E11.9 - TYPE 2 DIABETES MELLITUS WITHOUT COMPLICATIONS Qualifiers: Diabetes mellitus type: type 2 Diabetes mellitus nursing home insulin use: with nursing home use Diabetes mellitus complication status: with unspecified complications Qualified Code(s): E11.8 - Type 2 diabetes mellitus with unspecified complications; 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
[2018-11-09] MEDS: POLYETHYLENE GLYCOL 3350 119 GM BTL PO SCH (15:33)
--- NOTE | 2018-11-09 15:39 | PN ---
Progress Note, Physician Chief Complaint: The patient looks comfortable at the time of exam. She reports no recurrent chest pain; shortness of breath and leg edema improved. No palpitation or dizziness. Telemetry reviewed, it showed sinus rhythm at upper 70s to low 80s BPM. Rare VPCs noted. History of Present Illness: 58 year old obese woman with a PMHx of HTN, HLD, IDDM, non-ischemic cardiomyopathy (normal coronary arteries from cardiac cath in October 2016), chronic systolic CHF with LVEF 30-35% from echocardiogram on 10/12/2018, COPD ( 2.5 L O2 at home), admitted 11/07/2018 with 3 days of worsening SOB, orthopnea and leg edema and 2 days persistent centralized chest pain. She states the chest pain has been persistent. The patient denies palpitation, dizziness, syncope or near syncope. BNP 5,069, troponin 0.07, BUN 36, Creat 1.1 Echocardiogram 10/12/2018: Normal LV size with severe global LV systolic dysfunction. LVEF = 30-35%. Normal RV. Mild LA dilatation. Moderate MR and TR. Repeat echo 11/08/2018: Normal LV size with severe global LV systolic dysfunction. LVEF = 20-25%. Normal RV. Mild LA dilatation. Moderate MR and TR. - Current Medication List Current Medications: Active Medications Albuterol Sulfate (Ventolin 0.083% Nebulizer Soln -) 1 amp NEB Q6H PRN PRN Reason: SHORT OF BREATH/WHEEZING Last Admin: 11/08/18 18:16 Dose: 1 amp Aspirin (Ecotrin -) 81 mg PO DAILY [facility] Last Admin: 11/09/18 10:37 Dose: 81 mg Carvedilol (Coreg -) 25 mg PO BID [facility] Furosemide (Lasix Injection -) 40 mg IVPUSH BID@0600,1400 [facility] Last Admin: 11/09/18 06:01 Dose: 40 mg Heparin Sodium (Porcine) (Heparin -) 5,000 unit SQ BID [facility] Last Admin: 11/09/18 10:38 Dose: 5,000 unit Insulin Aspart (Novolog Vial Sliding Scale -) 1 vial SQ [facility]; Protocol Last Admin: 11/09/18 13:37 Dose: 2 units Insulin Detemir (Levemir Vial) 10 units SQ HS [facility] Last Admin: 11/08/18 21:26 Dose: 10 units Insulin Detemir (Levemir Vial) 15 units SQ DAILY@0700 [facility] Last Admin: 11/09/18 06:03 Dose: 15 units Isosorbide Mononitrate (Imdur -) 30 mg PO DAILY [facility] Last Admin: 11/09/18 10:37 Dose: 30 mg Losartan Potassium (Cozaar -) 50 mg PO DAILY [facility] Last Admin: 11/09/18 10:38 Dose: 50 mg Nicotine (Nicoderm Patch -) 7 mg TD DAILY [facility] Last Admin: 11/09/18 10:38 Dose: 7 mg Polyethylene Glycol (Miralax (For Daily Use) -) 17 gm PO DAILY [facility] Last Admin: 11/08/18 09:54 Dose: Not Given Pramipexole Dihydrochloride (Mirapex -) 0.25 mg PO HS [facility] Last Admin: 11/08/18 21:32 Dose: 0.25 mg Spironolactone (Aldactone -) 25 mg PO DAILY [facility] Last Admin: 11/09/18 10:37 Dose: 25 mg Topiramate (Topamax -) 25 mg PO BID [facility] Last Admin: 11/09/18 10:37 Dose: 25 mg - Objective Vital Signs: Vital Signs Temperature 98.2 F 11/09/18 14:10 Pulse Rate 82 11/09/18 14:10 Respiratory Rate 20 11/09/18 14:10 Blood Pressure 138/81 11/09/18 14:10 O2 Sat by Pulse Oximetry (%) 100 11/09/18 09:00 General: Well developed. Chronic ill. Mild acute distress due to SOB. Head: Normocephalic. Atraumatic, Eyes: PERRLA, EOMI. Sclerae anicteric. Conjunctivae clear. Neck: Supple. No JVD. No bruits. Heart: Normal S1, S2: Regular rhythm and rate. Lungs: Symmetrical poor air entry. Bibasilar crackles. No wheezing or rhonchi. Abdomen: Soft. Bowel sound positive. Non tender. No masses. Extremities: 1-2+ edema. No clubbing or cyanosis. Labs: CBC, BMP 11/09/18 05:30 11/09/18 05:30 INR, PTT INR 1.10 (0.83-1.09) H 11/07/18 13:08 Assessment/Plan 58 year old obese woman with a PMHx of HTN, HLD, IDDM, non-ischemic cardiomyopathy (normal coronary arteries from cardiac cath in October 2016), chronic systolic CHF with LVEF 30-35% from echocardiogram on 10/12/2018, COPD ( 2.5 L O2 at home), admitted 11/07/2018 with 3 days of worsening SOB, orthopnea and leg edema and 2 days persistent centralized chest pain. She states the chest pain has been persistent. The patient denies palpitation, dizziness, syncope or near syncope. BNP 5,069, troponin 0.07, BUN 36, Creat 1.1 Echocardiogram 10/12/2018: Normal LV size with severe global LV systolic dysfunction. LVEF = 30-35%. Normal RV. Mild LA dilatation. Moderate MR and TR. Repeat echo 11/08/2018: Normal LV size with severe global LV systolic dysfunction. LVEF = 20-25%. Normal RV. Mild LA dilatation. Moderate MR and TR. 1) Acute on chronic systolic CHF with evidence of fluid overload and elevated BNP. LV systolic function has worsened. Improved with diuresis. May change IV Lasix to PO 60 mg BID. Carvedilol increased to 25 mg BID. Continue losartan and Aldactone. Should have prophylactic ICD evaluation, it can be done as out-pt. May d/c tele. 2) Chest pain with mildly elevated troponin. Central chest pain with some local tenderness, likely non cardiac. Mildly elevated troponin is due to CHF exacerbation. She had normal coronary arteries from cardiac cath in October 2016. But small vessel CAD could also cause chest pain in the setting of acute systolic CHF. Coontinue Imdur 30 mg daily. Continue aspirin and atorvastatin. Patient is willing to see Dr. Peacock for out-patient cardiac follow up. Please call us for recosult as needed.
[2018-11-09] MEDS: ALBUTEROL SO4 0.083% IH SOL 2.5 MG/3 ML VIAL.NEB. NEB PRN (18:24)
--- NOTE | 2018-11-09 20:03 | CONSULT ---
Consult Consult Specialty:: endocrinology Referred by:: dr.saba miller Reason for Consultation:: diabetes mellitus uncontrolled - History of Present Illness Chief Complaint: cough and difficulty breathing/ high sugars History of Present Illness: 58 year old female, with a significant past medical history of DM 2, COPD (2.5 L O2 at home), CHF, HTN, HLD, who presented w chest pain and increased lower extremity swelling. She states she has had cough wheezing, congestion,dyspnea, high sugars despite not eating and poor appetite.blood sugars have been over 200mg/dl consistantly,frequent urination,and thirst - Past Medical History Cardio/Vascular: Yes: CHF, HTN, Hyperlipdemia. No: AFIB, CAD Pulmonary: Yes: Asthma, COPD, O2 Dependent. No: Pneumonia, Previously Intubated , Pulmonary Embolus, Pulmonary Fibrosis, Sleep Apnea Gastrointestinal: Yes: GERD. No: Cancer Renal/: Yes: Renal Inusuff Endocrine: Yes: Diabetes Mellitus - Alcohol/Substance Use Hx Alcohol Use: No History of Substance Use: reports: None - Smoking History Smoking history: Never smoked Have you smoked in the past 12 months: No Aproximately how many cigarettes per day: 10 If you are a former smoker, when did you quit?: 3 WEEKS AGO - Social History Usual Living Arrangement: With Spouse ADL: Independent History of Recent Travel: No Home Medications - Allergies Allergies/Adverse Reactions: Allergies Allergy/AdvReac Type Severity Reaction Status Date / Time No Known Allergies Allergy Verified 10/11/18 19:50 - Home Medications Home Medications: Ambulatory Orders Atorvastatin Ca [Lipitor] 10 mg PO HS #30 tab 05/03/17 Montelukast Na [Singulair -] 10 mg PO HS #30 tab 05/03/17 Esomeprazole Magnesium [Nexium 24Hr] 20 mg PO DAILY 04/20/18 Insulin (Levemir) [Levemir Vial] 15 units SQ [facility] units 04/24/18 Magnesium Hydrox 2400MG/30Ml [Milk of Magnesia -] 30 ml PO Q8H PRN #1 bot Polyethylene Glycol 3350 [Miralax 119 gm Btl -] 17 gm PO DAILY #1 bottle Sennosides [Senna -] 1 tab PO HS #30 tablet 05/02/18 Albuterol 0.083% Nebulizer [place] [Ventolin 0.083% Nebulizer Soln -] 1 amp NEB Q4H PRN amp 09/26/18 Insulin Sliding Scale [Novolog Vial Sliding Scale -] 1 vial SQ [facility] 10/20/18 Albuterol 2.5/Ipratropium 0.5 [Duoneb -] 1 neb NEB Q4H PRN #180 amp 10/25/18 Carvedilol [Coreg -] 25 mg PO BID #60 tablet MDD 2 10/25/18 Furosemide [Lasix -] 80 mg PO DAILY #60 tablet MDD 2 10/25/18 Insulin (Levemir) [Levemir Vial] 20 unit SQ HS #1 vial 10/25/18 Losartan Potassium [Cozaar -] 50 mg PO DAILY #60 tablet MDD 2 10/25/18 Nicotine Patch [Nicoderm Patch -] 7 mg TD DAILY #30 patch MDD 1 10/25/18 Pramipexole Dihydrochloride [Mirapex -] 0.25 mg PO HS #30 tablet MDD 1 10/25/18 Prednisone 10 mg PO AM #30 tablet MDD 1 10/25/18 Spironolactone [Aldactone -] 25 mg PO DAILY #30 tablet MDD 1 10/25/18 Topiramate [Topamax -] 25 mg PO BID #14 tablet MDD 2 10/25/18 Family Disease History - Family Disease History Family Disease History: Diabetes: Father, Brother Review of Systems - Review of Systems Constitutional: reports: Loss of Appetite Eyes: reports: Blurred Vision HENT: reports: Difficult Swallowing Neck: reports: No Symptoms Cardiovascular: reports: Palpitations, Shortness of Breath Respiratory: reports: Exercise Intolerance, Orthopnea, Wheezing Gastrointestinal: reports: Bloating Genitourinary: reports: Frequency Breasts: reports: No Symptoms Reported Musculoskeletal: reports: Joint Swelling, Muscle Pain, Muscle Cramps Neurological: reports: Numbness, Unsteady Gait, Weakness Endocrine: reports: Unexplained Weight Gain Physical Exam Vital Signs: Vital Signs Temperature 98.2 F 11/09/18 14:10 Pulse Rate 82 11/09/18 14:10 Respiratory Rate 20 11/09/18 14:10 Blood Pressure 138/81 11/09/18 14:10 O2 Sat by Pulse Oximetry (%) 100 11/09/18 09:00 Constitutional: Yes: Anxious Eyes: Yes: EOM Intact HENT: Yes: Normocephalic Neck: Yes: Trachea Midline Cardiovascular: Yes: Tachycardia Respiratory: Yes: On Nasal O2, Rhonchi, SOB on Exertion, Wheezes Gastrointestinal: Yes: Normal Bowel Sounds ...Rectal Exam: Yes: Deferred Musculoskeletal: Yes: Back Pain Edema: Yes Edema: LLE: 1+, RLE: 1+ Neurological: Yes: Alert, Oriented Labs: CBC, BMP 11/09/18 05:30 11/09/18 05:30 Problem List - Problems (1) Type 2 diabetes mellitus with diabetic nephropathy Code(s): E11.21 - TYPE 2 DIABETES MELLITUS WITH DIABETIC NEPHROPATHY (2) CHF (congestive heart failure) Code(s): I50.9 - HEART FAILURE, UNSPECIFIED (3) Chronic hypoxemic respiratory failure Code(s): J96.11 - CHRONIC RESPIRATORY FAILURE WITH HYPOXIA (4) Abnormal liver enzymes Code(s): R74.8 - ABNORMAL LEVELS OF OTHER SERUM ENZYMES (5) Acute on chronic respiratory failure with hypoxemia Code(s): J96.21 - ACUTE AND CHRONIC RESPIRATORY FAILURE WITH HYPOXIA (6) Acute on chronic systolic (congestive) heart failure Code(s): I50.23 - ACUTE ON CHRONIC SYSTOLIC (CONGESTIVE) HEART FAILURE (7) Asthma Code(s): J45.909 - UNSPECIFIED ASTHMA, UNCOMPLICATED Qualifiers: Asthma severity: unspecified severity Asthma complication type: uncomplicated Assessment/Plan Current Active Problems CHF (congestive heart failure) (Acute) Chronic hypoxemic respiratory failure (Acute) Type 2 diabetes mellitus with diabetic nephropathy (Acute) Abnormal Lab Results 11/09/18 11/09/18 05:30 05:30 MCHC 31.6 L RDW 18.5 H Nucleated RBC % 1 H BUN 34 H Random Glucose 204 H Calcium 7.6 L ALT 68 H Alkaline Phosphatase 196 H Total Protein 5.1 L Albumin 2.4 L Laboratory Results - last 24 hr 11/08/18 11/09/18 11/09/18 21:20 05:30 05:30 WBC 4.4 RBC 4.71 Hgb 13.9 Hct 43.9 MCV 93.2 MCH 29.4 MCHC 31.6 L RDW 18.5 H Plt Count 185 MPV 8.2 Absolute Neuts (auto) 2.9 Neutrophils % 66.0 Lymphocytes % 21.5 Monocytes % 9.4 Eosinophils % 2.6 Basophils % 0.5 Nucleated RBC % 1 H Sodium 139 Potassium 4.4 Chloride 107 Carbon Dioxide 22 Anion Gap 10 BUN 34 H Creatinine 0.9 Creat Clearance w eGFR 64.54 POC Glucometer 306 Random Glucose 204 H Calcium 7.6 L Total Bilirubin 0.6 AST 33 ALT 68 H Alkaline Phosphatase 196 H Total Protein 5.1 L Albumin 2.4 L 11/09/18 11/09/18 11/09/18 05:53 12:17 17:24 WBC RBC Hgb Hct MCV MCH MCHC RDW Plt Count MPV Absolute Neuts (auto) Neutrophils % Lymphocytes % Monocytes % Eosinophils % Basophils % Nucleated RBC % Sodium Potassium Chloride Carbon Dioxide Anion Gap BUN Creatinine Creat Clearance w eGFR POC Glucometer 193 228 304 Random Glucose Calcium Total Bilirubin AST ALT Alkaline Phosphatase Total Protein Albumin plan: bgm qid novolog insulin doses levemir 25 units am levemir 15 units hsj titrate as needed
[2018-11-09] MEDS: guaiFENesin/D-M SUGAR-FREE/ACLHOL-FREE 118 ML BOTTLE PO PRN (21:00)
[2018-11-09] MEDS: CARVEDILOL 25 MG TABLET (FP) PO SCH (22:52)
[2018-11-09] MEDS: PRAMIPEXOLE DIHYDROCHLORIDE 0.25 MG TABLET PO SCH (22:52)
[2018-11-10] MEDS: guaiFENesin/D-M SUGAR-FREE/ACLHOL-FREE 118 ML BOTTLE PO PRN (03:00)
[2018-11-10] MEDS: INSULIN SLIDING SCALE (NOVOLOG) 1 VIAL SQ SCH ×4 (06:34→21:18)
[2018-11-10] MEDS: FUROSEMIDE 40 MG/4 ML INJECTABLE VIAL IVPUSH SCH ×2 (06:53→14:22)
[2018-11-10] MEDS: INSULIN (LEVEMIR) 100 UNITS/ML UNITS SQ SCH ×2 (06:53→21:19)
[2018-11-10 08:30] LABS: BASO % 0.6 % (0-2.0); EOS % 2.9 % (0-4.5); HEMATOCRIT 42.7 % (32.4-45.2); HEMOGLOBIN 13.8 GM/dL (10.7-15.3); LYMPH % 19.2 % (8-40); MCH 30.2 pg (25.7-33.7); MCHC 32.4 g/dl (32.0-36.0); MEAN CELL VOLUME 93.4 fl (80-96); MEAN PLT VOLUME 8.4 fl (7.5-11.1); NEUT % 67.3 % (42.8-82.8); PLATELET COUNT 183 K/MM3 (134-434); RBC 4.57 M/mm3 (3.60-5.2); RDW 18.1 % (11.6-15.6); WHITE BLOOD COUNT 3.6 K/mm3 (4.0-10.0)
[2018-11-10 09:02] LABS: ALBUMIN 2.5 g/dl (3.4-5.0); ALK PHOS 205 U/L (45-117); ANION GAP 6 MMOL/L (8-16); BILIRUBIN,TOTAL 0.5 mg/dL (0.2-1); BLOOD UREA NITROGEN 21 mg/dL (7-18); CALCIUM 7.5 mg/dL (8.5-10.1); CHLORIDE 108 mmol/L (98-107); CO2 27 mmol/L (21-32); CREATININE 0.7 mg/dL (0.55-1.3); GLUCOSE,RANDOM 103 mg/dL (74-106); POTASSIUM 4.1 mmol/L (3.5-5.1); SGOT/AST 19 U/L (15-37); SGPT/ALT 57 U/L (13-61); SODIUM 141 mmol/L (136-145); TOT PROT 5.3 g/dl (6.4-8.2)
[2018-11-10] MEDS ORDERED: PT OWN MED DRAWER 7, Y5N ONE ×2 (09:26→21:14)
[2018-11-10] MEDS: ISOSORBIDE MONONITRATE 30 MG TAB.SR.24H (FP) PO SCH (09:34)
[2018-11-10] MEDS ORDERED: ONDANSETRON *ODT* 4 MG TABLET SL PRN (09:36)
[2018-11-10] MEDS: CARVEDILOL 25 MG TABLET (FP) PO SCH ×2 (09:38→21:12)
[2018-11-10] MEDS: SPIRONOLACTONE 25 MG TABLET (FP) PO SCH (09:38)
[2018-11-10] MEDS: ASPIRIN COATED 81 MG TABLET.EC PO SCH (09:38)
[2018-11-10] MEDS: NICOTINE 7 MG/24 HOURS TOPICAL PATCH TD SCH (09:38)
[2018-11-10] MEDS: LOSARTAN POTASSIUM 50 MG TABLET (FP) PO SCH (09:38)
[2018-11-10] MEDS: HEPARIN NA (PORCINE) 5,000 UNITS/ML 1ML VIAL SQ SCH ×2 (09:39→21:12)
[2018-11-10] MEDS: TOPIRAMATE 25 MG TABLET (FP) PO SCH ×2 (09:41→21:17)
[2018-11-10] MEDS: POLYETHYLENE GLYCOL 3350 119 GM BTL PO SCH (09:41)
[2018-11-10] MEDS: guaiFENesin/CODEINE 5 ML UNIT-DOSE CUPS PO PRN (09:55)
--- NOTE | 2018-11-10 12:24 | PN ---
Progress Note, Physician Chief Complaint: EVENTS AND NOTES REVIEWED C/O HACKING COUGH WHEEZING - Current Medication List Current Medications: Active Medications Albuterol Sulfate (Ventolin 0.083% Nebulizer Soln -) 1 amp NEB Q6H PRN PRN Reason: SHORT OF BREATH/WHEEZING Last Admin: 11/09/18 18:24 Dose: 1 amp Aspirin (Ecotrin -) 81 mg PO DAILY [facility] Last Admin: 11/10/18 09:38 Dose: 81 mg Carvedilol (Coreg -) 25 mg PO BID [facility] Last Admin: 11/10/18 09:38 Dose: 25 mg Furosemide (Lasix Injection -) 40 mg IVPUSH BID@0600,1400 [facility] Last Admin: 11/10/18 06:53 Dose: 40 mg Guaifenesin/Codeine Phosphate (Robitussin Ac -) 5 ml PO TID PRN PRN Reason: COUGH Last Admin: 11/10/18 09:55 Dose: 5 ml Heparin Sodium (Porcine) (Heparin -) 5,000 unit SQ BID [facility] Last Admin: 11/10/18 09:39 Dose: 5,000 unit Insulin Aspart (Novolog Vial Sliding Scale -) 1 vial SQ [facility]; Protocol Last Admin: 11/10/18 11:16 Dose: Not Given Insulin Detemir (Levemir Vial) 10 units SQ HS [facility] Last Admin: 11/09/18 22:53 Dose: 10 units Insulin Detemir (Levemir Vial) 25 units SQ DAILY@0700 [facility] Last Admin: 11/10/18 06:53 Dose: 25 units Isosorbide Mononitrate (Imdur -) 30 mg PO DAILY [facility] Last Admin: 11/10/18 09:34 Dose: 30 mg Losartan Potassium (Cozaar -) 50 mg PO DAILY [facility] Last Admin: 11/10/18 09:38 Dose: 50 mg Nicotine (Nicoderm Patch -) 7 mg TD DAILY [facility] Last Admin: 11/10/18 09:38 Dose: 7 mg Ondansetron HCl (Zofran Odt -) 4 mg SL Q6H PRN PRN Reason: NAUSEA AND/OR VOMITING Last Admin: 11/10/18 11:14 Dose: 4 mg Polyethylene Glycol (Miralax (For Daily Use) -) 17 gm PO DAILY [facility] Last Admin: 11/10/18 09:41 Dose: Not Given Pramipexole Dihydrochloride (Mirapex -) 0.25 mg PO HS [facility] Last Admin: 11/09/18 22:52 Dose: 0.25 mg Spironolactone (Aldactone -) 25 mg PO DAILY [facility] Last Admin: 11/10/18 09:38 Dose: 25 mg Topiramate (Topamax -) 25 mg PO BID [facility] Last Admin: 11/10/18 09:41 Dose: 25 mg - Objective Vital Signs: Vital Signs Temperature 97.7 F 11/10/18 06:00 Pulse Rate 85 11/10/18 06:00 Respiratory Rate 20 11/10/18 06:00 Blood Pressure 121/78 11/10/18 06:00 O2 Sat by Pulse Oximetry (%) 99 11/09/18 21:00 Constitutional: Yes: Mild Distress Cardiovascular: Yes: Regular Rate and Rhythm Respiratory: Yes: Cough, On Nasal O2, Wheezes Gastrointestinal: Yes: Abdomen, Obese Genitourinary: Yes: Other Musculoskeletal: Yes: Muscle Weakness Edema: Yes Edema: LLE: 1+, RLE: 1+ Neurological: Yes: Other Psychiatric: Yes: Other Labs: CBC, BMP 11/10/18 06:15 11/10/18 06:15 INR, PTT INR 1.10 (0.83-1.09) H 11/07/18 13:08 Problem List - Problems (1) Noncompliance of patient with dietary regimen Code(s): Z91.11 - PATIENT'S NONCOMPLIANCE WITH DIETARY REGIMEN (2) Noncompliance with diabetes treatment Code(s): Z91.19 - PATIENT'S NONCOMPLIANCE W OTH MEDICAL TREATMENT AND REGIMEN (3) CHF (congestive heart failure) Code(s): I50.9 - HEART FAILURE, UNSPECIFIED (4) Chronic hypoxemic respiratory failure Code(s): J96.11 - CHRONIC RESPIRATORY FAILURE WITH HYPOXIA (5) Type 2 diabetes mellitus with diabetic nephropathy Code(s): E11.21 - TYPE 2 DIABETES MELLITUS WITH DIABETIC NEPHROPATHY (6) Acute on chronic systolic (congestive) heart failure Code(s): I50.23 - ACUTE ON CHRONIC SYSTOLIC (CONGESTIVE) HEART FAILURE (7) Asthma Code(s): J45.909 - UNSPECIFIED ASTHMA, UNCOMPLICATED Qualifiers: Asthma severity: unspecified severity Asthma complication type: uncomplicated (8) Cardiomyopathy Code(s): I42.9 - CARDIOMYOPATHY, UNSPECIFIED Qualifiers: Cardiomyopathy type: unspecified Qualified Code(s): I42.9 - Cardiomyopathy , unspecified (9) HTN (hypertension) Code(s): I10 - ESSENTIAL (PRIMARY) HYPERTENSION Qualifiers: Hypertension type: essential hypertension Qualified Code(s): I10 - Essential (primary) hypertension (10) Uncontrolled diabetes mellitus Code(s): E11.65 - TYPE 2 DIABETES MELLITUS WITH HYPERGLYCEMIA Assessment/Plan CARDIOLOGY EVAL APPRECIATED PULM EVAL COMPLIANCE TO MEDICATIONS/LIFESTYLE/DIET DISCUSSED DIETARY/NUTRITION CONSULT FOR CHF/DIABETIC DIET LOW IN SODIUM ADA IV LASIX DAILY [facility]IGHT[facility] 02 SUPPORT JANELLE AC
--- NOTE | 2018-11-10 14:40 | PN ---
Progress Note (short form) - Note Progress Note: Resting in NAD. Occasional coughing "fits". Still with residual [place]. Intake & Output 11/07/18 11/08/18 11/09/18 11/10/18 23:59 23:59 23:59 23:59 Intake Total 480 1030 490 250 Balance 480 1030 490 250 Weight 220 lb 219 lb 220 lb 3.2 oz 219 lb 6 oz Last Vital Signs Temp Pulse Resp BP Pulse Ox 97.8 F 85 23 H 122/84 98 11/10/18 14:36 11/10/18 14:36 11/10/18 14:36 11/10/18 14:36 11/10/18 09:00 Active Medications Albuterol Sulfate (Ventolin 0.083% Nebulizer Soln -) 1 amp NEB Q6H PRN PRN Reason: SHORT OF BREATH/WHEEZING Last Admin: 11/09/18 18:24 Dose: 1 amp Aspirin (Ecotrin -) 81 mg PO DAILY [facility] Last Admin: 11/10/18 09:38 Dose: 81 mg Carvedilol (Coreg -) 25 mg PO BID [facility] Last Admin: 11/10/18 09:38 Dose: 25 mg Furosemide (Lasix Injection -) 40 mg IVPUSH BID@0600,1400 [facility] Last Admin: 11/10/18 14:22 Dose: 40 mg Guaifenesin/Codeine Phosphate (Robitussin Ac -) 5 ml PO TID PRN PRN Reason: COUGH Last Admin: 11/10/18 09:55 Dose: 5 ml Heparin Sodium (Porcine) (Heparin -) 5,000 unit SQ BID [facility] Last Admin: 11/10/18 09:39 Dose: 5,000 unit Insulin Aspart (Novolog Vial Sliding Scale -) 1 vial SQ [facility]; Protocol Last Admin: 11/10/18 11:16 Dose: Not Given Insulin Detemir (Levemir Vial) 10 units SQ HS [facility] Last Admin: 11/09/18 22:53 Dose: 10 units Insulin Detemir (Levemir Vial) 25 units SQ DAILY@0700 [facility] Last Admin: 11/10/18 06:53 Dose: 25 units Isosorbide Mononitrate (Imdur -) 30 mg PO DAILY [facility] Last Admin: 11/10/18 09:34 Dose: 30 mg Losartan Potassium (Cozaar -) 50 mg PO DAILY [facility] Last Admin: 11/10/18 09:38 Dose: 50 mg Nicotine (Nicoderm Patch -) 7 mg TD DAILY [facility] Last Admin: 11/10/18 09:38 Dose: 7 mg Ondansetron HCl (Zofran Odt -) 4 mg SL Q6H PRN PRN Reason: NAUSEA AND/OR VOMITING Last Admin: 11/10/18 11:14 Dose: 4 mg Polyethylene Glycol (Miralax (For Daily Use) -) 17 gm PO DAILY [facility] Last Admin: 11/10/18 09:41 Dose: Not Given Pramipexole Dihydrochloride (Mirapex -) 0.25 mg PO HS [facility] Last Admin: 11/09/18 22:52 Dose: 0.25 mg Spironolactone (Aldactone -) 25 mg PO DAILY [facility] Last Admin: 11/10/18 09:38 Dose: 25 mg Topiramate (Topamax -) 25 mg PO BID [facility] Last Admin: 11/10/18 09:41 Dose: 25 mg Constitutional: Yes: NAD Eyes: Yes: WNL HENT: Yes: WNL Neck: Yes: WNL Cardiovascular: Yes: Regular Rate and Rhythm, S1, S2 Respiratory: Yes: Bibasilar rhonchi/crackles Gastrointestinal: Yes: Normal Bowel Sounds, Soft Extremities: Yes: WNL Edema: Yes Labs: Laboratory Results - last 24 hr 11/09/18 11/09/18 11/10/18 17:24 22:50 06:12 WBC RBC Hgb Hct MCV MCH MCHC RDW Plt Count MPV Absolute Neuts (auto) Neutrophils % Lymphocytes % Monocytes % Eosinophils % Basophils % Nucleated RBC % Sodium Potassium Chloride Carbon Dioxide Anion Gap BUN Creatinine Creat Clearance w eGFR POC Glucometer 304 382 120 Random Glucose Calcium Total Bilirubin AST ALT Alkaline Phosphatase Total Protein Albumin 11/10/18 11/10/18 11/10/18 06:15 06:15 11:14 WBC 3.6 L RBC 4.57 Hgb 13.8 Hct 42.7 MCV 93.4 MCH 30.2 MCHC 32.4 RDW 18.1 H Plt Count 183 MPV 8.4 Absolute Neuts (auto) 2.5 Neutrophils % 67.3 Lymphocytes % 19.2 Monocytes % 10.0 Eosinophils % 2.9 Basophils % 0.6 Nucleated RBC % 0 Sodium 141 Potassium 4.1 Chloride 108 H Carbon Dioxide 27 Anion Gap 6 L BUN 21 H Creatinine 0.7 Creat Clearance w eGFR 86.25 POC Glucometer 113 Random Glucose 103 Calcium 7.5 L Total Bilirubin 0.5 AST 19 ALT 57 Alkaline Phosphatase 205 H Total Protein 5.3 L Albumin 2.5 L Assessment/Plan Problem List - Problems (1) Acute on chronic systolic (congestive) heart failure Code(s): I50.23 - ACUTE ON CHRONIC SYSTOLIC (CONGESTIVE) HEART FAILURE (2) COPD (chronic obstructive pulmonary disease) Code(s): J44.9 - CHRONIC OBSTRUCTIVE PULMONARY DISEASE, UNSPECIFIED Qualifiers: COPD type: unspecified COPD Qualified Code(s): J44.9 - Chronic obstructive pulmonary disease, unspecified (3) Diabetes Code(s): E11.9 - TYPE 2 DIABETES MELLITUS WITHOUT COMPLICATIONS Qualifiers: Diabetes mellitus type: type 2 Diabetes mellitus longterm insulin use: with longterm use Diabetes mellitus complication status: with unspecified complications Qualified Code(s): E11.8 - Type 2 diabetes mellitus with unspecified complications; Z79.4 - senior living (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 of insulin (4) HTN (hypertension) Code(s): I10 - ESSENTIAL (PRIMARY) HYPERTENSION Qualifiers: Hypertension type: essential hypertension Qualified Code(s): I10 - Essential (primary) hypertension Assessment/Plan Acute on Chronic Systolic Heart Failure +Troponins Chronic Hypoxic Respiratory Failure COPD HTN DM - IV lasix BID - monitor urine output, creatinine - daily weights - O2 to keep Spo2 >90% - inhaled bronchodilators as needed - DVT prophylaxis - Monitor off systemic steroids Dr Asencio
[2018-11-10] MEDS: ALBUTEROL SO4 0.083% IH SOL 2.5 MG/3 ML VIAL.NEB. NEB PRN (18:39)
[2018-11-10] MEDS: PRAMIPEXOLE DIHYDROCHLORIDE 0.25 MG TABLET PO SCH (21:17)
[2018-11-11] MEDS: FUROSEMIDE 40 MG/4 ML INJECTABLE VIAL IVPUSH SCH ×2 (06:48→15:10)
[2018-11-11] MEDS: INSULIN SLIDING SCALE (NOVOLOG) 1 VIAL SQ SCH ×4 (06:48→21:12)
[2018-11-11] MEDS: INSULIN (LEVEMIR) 100 UNITS/ML UNITS SQ SCH ×2 (06:48→21:13)
[2018-11-11] MEDS: ALBUTEROL SO4 0.083% IH SOL 2.5 MG/3 ML VIAL.NEB. NEB PRN ×2 (08:03→20:24)
[2018-11-11] MEDS ORDERED: PT OWN MED DRAWER 7, Y5N ONE ×2 (08:47→20:32)
[2018-11-11] MEDS: CARVEDILOL 25 MG TABLET (FP) PO SCH ×2 (09:54→21:10)
[2018-11-11] MEDS: NICOTINE 7 MG/24 HOURS TOPICAL PATCH TD SCH (09:54)
[2018-11-11] MEDS: ASPIRIN COATED 81 MG TABLET.EC PO SCH (09:54)
[2018-11-11] MEDS: guaiFENesin/CODEINE 5 ML UNIT-DOSE CUPS PO PRN ×2 (09:54→21:07)
[2018-11-11] MEDS: SPIRONOLACTONE 25 MG TABLET (FP) PO SCH (09:54)
[2018-11-11] MEDS: LOSARTAN POTASSIUM 50 MG TABLET (FP) PO SCH (09:54)
[2018-11-11] MEDS: ISOSORBIDE MONONITRATE 30 MG TAB.SR.24H (FP) PO SCH (09:54)
[2018-11-11] MEDS: TOPIRAMATE 25 MG TABLET (FP) PO SCH ×2 (09:55→21:10)
[2018-11-11] MEDS: HEPARIN NA (PORCINE) 5,000 UNITS/ML 1ML VIAL SQ SCH ×2 (09:55→21:10)
[2018-11-11] MEDS: POLYETHYLENE GLYCOL 3350 119 GM BTL PO SCH (09:56)
--- NOTE | 2018-11-11 11:19 | PN ---
Progress Note, Physician Chief Complaint: AWAKE ALERT STILL SOB NO CHEST PAIN - Current Medication List Current Medications: Active Medications Albuterol Sulfate (Ventolin 0.083% Nebulizer Soln -) 1 amp NEB Q6H PRN PRN Reason: SHORT OF BREATH/WHEEZING Last Admin: 11/11/18 08:03 Dose: 1 amp Aspirin (Ecotrin -) 81 mg PO DAILY [facility] Last Admin: 11/11/18 09:54 Dose: 81 mg Carvedilol (Coreg -) 25 mg PO BID [facility] Last Admin: 11/11/18 09:54 Dose: 25 mg Furosemide (Lasix Injection -) 40 mg IVPUSH BID@0600,1400 [facility] Last Admin: 11/11/18 06:48 Dose: 40 mg Guaifenesin/Codeine Phosphate (Robitussin Ac -) 5 ml PO TID PRN PRN Reason: COUGH Last Admin: 11/11/18 09:54 Dose: 5 ml Heparin Sodium (Porcine) (Heparin -) 5,000 unit SQ BID [facility] Last Admin: 11/11/18 09:55 Dose: 5,000 unit Insulin Aspart (Novolog Vial Sliding Scale -) 1 vial SQ [facility]; Protocol Last Admin: 11/11/18 06:48 Dose: 4 units Insulin Detemir (Levemir Vial) 10 units SQ HS [facility] Last Admin: 11/10/18 21:19 Dose: 10 units Insulin Detemir (Levemir Vial) 25 units SQ DAILY@0700 [facility] Last Admin: 11/11/18 06:48 Dose: 25 units Isosorbide Mononitrate (Imdur -) 30 mg PO DAILY [facility] Last Admin: 11/11/18 09:54 Dose: 30 mg Losartan Potassium (Cozaar -) 50 mg PO DAILY [facility] Last Admin: 11/11/18 09:54 Dose: 50 mg Nicotine (Nicoderm Patch -) 7 mg TD DAILY [facility] Last Admin: 11/11/18 09:54 Dose: 7 mg Ondansetron HCl (Zofran Odt -) 4 mg SL Q6H PRN PRN Reason: NAUSEA AND/OR VOMITING Last Admin: 11/10/18 11:14 Dose: 4 mg Polyethylene Glycol (Miralax (For Daily Use) -) 17 gm PO DAILY [facility] Last Admin: 11/11/18 09:56 Dose: 17 gm Pramipexole Dihydrochloride (Mirapex -) 0.25 mg PO HS [facility] Last Admin: 11/10/18 21:17 Dose: 0.25 mg Spironolactone (Aldactone -) 25 mg PO DAILY [facility] Last Admin: 11/11/18 09:54 Dose: 25 mg Topiramate (Topamax -) 25 mg PO BID [facility] Last Admin: 11/11/18 09:55 Dose: 25 mg - Objective Vital Signs: Vital Signs Temperature 98.3 F 11/11/18 06:00 Pulse Rate 84 11/11/18 06:00 Respiratory Rate 20 11/11/18 06:00 Blood Pressure 131/88 11/11/18 06:00 O2 Sat by Pulse Oximetry (%) 99 11/10/18 21:00 Constitutional: Yes: Mild Distress Cardiovascular: Yes: Regular Rate and Rhythm Respiratory: Yes: On Nasal O2, Rhonchi Gastrointestinal: Yes: WNL Genitourinary: Yes: WNL Musculoskeletal: Yes: Muscle Weakness Extremities: Yes: Other Edema: Yes Edema: LLE: 1+, RLE: 1+ Peripheral Pulses WNL: Yes Integumentary: Yes: WNL Wound/Incision: Yes: Clean/Dry Neurological: Yes: Other ...Motor Strength: LLE, RLE Psychiatric: Yes: WNL Labs: CBC, BMP 11/10/18 06:15 11/10/18 06:15 INR, PTT INR 1.10 (0.83-1.09) H 11/07/18 13:08 Problem List - Problems (1) Noncompliance of patient with dietary regimen Code(s): Z91.11 - PATIENT'S NONCOMPLIANCE WITH DIETARY REGIMEN (2) Noncompliance with diabetes treatment Code(s): Z91.19 - PATIENT'S NONCOMPLIANCE W OTH MEDICAL TREATMENT AND REGIMEN (3) CHF (congestive heart failure) Code(s): I50.9 - HEART FAILURE, UNSPECIFIED (4) Chronic hypoxemic respiratory failure Code(s): J96.11 - CHRONIC RESPIRATORY FAILURE WITH HYPOXIA (5) Type 2 diabetes mellitus with diabetic nephropathy Code(s): E11.21 - TYPE 2 DIABETES MELLITUS WITH DIABETIC NEPHROPATHY (6) Acute on chronic systolic (congestive) heart failure Code(s): I50.23 - ACUTE ON CHRONIC SYSTOLIC (CONGESTIVE) HEART FAILURE (7) Asthma Code(s): J45.909 - UNSPECIFIED ASTHMA, UNCOMPLICATED Qualifiers: Asthma severity: unspecified severity Asthma complication type: uncomplicated (8) Cardiomyopathy Code(s): I42.9 - CARDIOMYOPATHY, UNSPECIFIED Qualifiers: Cardiomyopathy type: unspecified Qualified Code(s): I42.9 - Cardiomyopathy , unspecified (9) HTN (hypertension) Code(s): I10 - ESSENTIAL (PRIMARY) HYPERTENSION Qualifiers: Hypertension type: essential hypertension Qualified Code(s): I10 - Essential (primary) hypertension (10) Uncontrolled diabetes mellitus Code(s): E11.65 - TYPE 2 DIABETES MELLITUS WITH HYPERGLYCEMIA Assessment/Plan CARDIOLOGY EVAL APPRECIATED PULM EVAL COMPLIANCE TO MEDICATIONS/LIFESTYLE/DIET DISCUSSED DIETARY/NUTRITION CONSULT FOR CHF/DIABETIC DIET LOW IN SODIUM ADA IV LASIX DAILY [facility] 02 SUPPORT ROBITUSSIN AC SNF PLACEMENT
--- NOTE | 2018-11-11 12:24 | PN ---
Progress Note (short form) - Note Progress Note: Resting in NAD. Still with residual [place] and cough. No CP. Intake & Output 11/08/18 11/09/18 11/10/18 11/11/18 23:59 23:59 23:59 23:59 Intake Total 1030 490 512 100 Output Total 100 Balance 1030 490 412 100 Weight 219 lb 220 lb 3.2 oz 219 lb 6 oz 205 lb 9.6 oz Last Vital Signs Temp Pulse Resp BP Pulse Ox 98.6 F 98 H 18 132/80 100 11/11/18 10:00 11/11/18 10:00 11/11/18 10:00 11/11/18 10:00 11/11/18 10:00 Active Medications Albuterol Sulfate (Ventolin 0.083% Nebulizer Soln -) 1 amp NEB Q6H PRN PRN Reason: SHORT OF BREATH/WHEEZING Last Admin: 11/11/18 08:03 Dose: 1 amp Aspirin (Ecotrin -) 81 mg PO DAILY [facility] Last Admin: 11/11/18 09:54 Dose: 81 mg Carvedilol (Coreg -) 25 mg PO BID [facility] Last Admin: 11/11/18 09:54 Dose: 25 mg Furosemide (Lasix Injection -) 40 mg IVPUSH BID@0600,1400 [facility] Last Admin: 11/11/18 06:48 Dose: 40 mg Guaifenesin/Codeine Phosphate (Robitussin Ac -) 5 ml PO TID PRN PRN Reason: COUGH Last Admin: 11/11/18 09:54 Dose: 5 ml Heparin Sodium (Porcine) (Heparin -) 5,000 unit SQ BID [facility] Last Admin: 11/11/18 09:55 Dose: 5,000 unit Insulin Aspart (Novolog Vial Sliding Scale -) 1 vial SQ [facility]; Protocol Last Admin: 11/11/18 06:48 Dose: 4 units Insulin Detemir (Levemir Vial) 10 units SQ HS [facility] Last Admin: 11/10/18 21:19 Dose: 10 units Insulin Detemir (Levemir Vial) 25 units SQ DAILY@0700 [facility] Last Admin: 11/11/18 06:48 Dose: 25 units Isosorbide Mononitrate (Imdur -) 30 mg PO DAILY [facility] Last Admin: 11/11/18 09:54 Dose: 30 mg Losartan Potassium (Cozaar -) 50 mg PO DAILY [facility] Last Admin: 11/11/18 09:54 Dose: 50 mg Nicotine (Nicoderm Patch -) 7 mg TD DAILY [facility] Last Admin: 11/11/18 09:54 Dose: 7 mg Ondansetron HCl (Zofran Odt -) 4 mg SL Q6H PRN PRN Reason: NAUSEA AND/OR VOMITING Last Admin: 11/10/18 11:14 Dose: 4 mg Polyethylene Glycol (Miralax (For Daily Use) -) 17 gm PO DAILY [facility] Last Admin: 11/11/18 09:56 Dose: 17 gm Pramipexole Dihydrochloride (Mirapex -) 0.25 mg PO HS [facility] Last Admin: 11/10/18 21:17 Dose: 0.25 mg Spironolactone (Aldactone -) 25 mg PO DAILY [facility] Last Admin: 11/11/18 09:54 Dose: 25 mg Topiramate (Topamax -) 25 mg PO BID [facility] Last Admin: 11/11/18 09:55 Dose: 25 mg Constitutional: Yes: NAD Eyes: Yes: WNL HENT: Yes: WNL Neck: Yes: WNL Cardiovascular: Yes: Regular Rate and Rhythm, S1, S2 Respiratory: Yes: Bibasilar rhonchi/crackles Gastrointestinal: Yes: Normal Bowel Sounds, Soft Extremities: Yes: WNL Edema: Yes Labs: Laboratory Results - last 24 hr 11/10/18 11/10/18 11/11/18 17:05 21:10 06:06 POC Glucometer 168 204 239 11/11/18 11:31 POC Glucometer 269 Assessment/Plan Problem List - Problems (1) Acute on chronic systolic (congestive) heart failure Code(s): I50.23 - ACUTE ON CHRONIC SYSTOLIC (CONGESTIVE) HEART FAILURE (2) COPD (chronic obstructive pulmonary disease) Code(s): J44.9 - CHRONIC OBSTRUCTIVE PULMONARY DISEASE, UNSPECIFIED Qualifiers: COPD type: unspecified COPD Qualified Code(s): J44.9 - Chronic obstructive pulmonary disease, unspecified (3) Diabetes Code(s): E11.9 - TYPE 2 DIABETES MELLITUS WITHOUT COMPLICATIONS Qualifiers: Diabetes mellitus type: type 2 Diabetes mellitus termite inspector insulin use: with termite inspector use Diabetes mellitus complication status: with unspecified complications Qualified Code(s): E11.8 - Type 2 diabetes mellitus with unspecified complications; Z79.4 - terminologist (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 of insulin (4) HTN (hypertension) Code(s): I10 - ESSENTIAL (PRIMARY) HYPERTENSION Qualifiers: Hypertension type: essential hypertension Qualified Code(s): I10 - Essential (primary) hypertension Assessment/Plan Acute on Chronic Systolic Heart Failure +Troponins Chronic Hypoxic Respiratory Failure COPD HTN DM - IV lasix BID - monitor urine output, creatinine - daily weights - O2 to keep Spo2 >90% - inhaled bronchodilators as needed - DVT prophylaxis - Monitor off systemic steroids Dr Asencio
[2018-11-11] MEDS ORDERED: ACETAMINOPHEN 325 MG TABLET (FP) PO PRN (18:25)
[2018-11-11] MEDS: PRAMIPEXOLE DIHYDROCHLORIDE 0.25 MG TABLET PO SCH (21:10)
[2018-11-12] MEDS: FUROSEMIDE 40 MG/4 ML INJECTABLE VIAL IVPUSH SCH (06:21)
[2018-11-12 07:19] LABS: ANION GAP 5 MMOL/L (8-16); BLOOD UREA NITROGEN 16 mg/dL (7-18); CALCIUM 7.9 mg/dL (8.5-10.1); CHLORIDE 106 mmol/L (98-107); CO2 28 mmol/L (21-32); CREATININE 0.7 mg/dL (0.55-1.3); GLUCOSE,RANDOM 158 mg/dL (74-106); MAGNESIUM 2.1 mg/dL (1.8-2.4); POTASSIUM 3.9 mmol/L (3.5-5.1); SODIUM 138 mmol/L (136-145)
[2018-11-12] MEDS: INSULIN (LEVEMIR) 100 UNITS/ML UNITS SQ SCH ×2 (07:21→21:44)
[2018-11-12] MEDS: INSULIN SLIDING SCALE (NOVOLOG) 1 VIAL SQ SCH ×4 (07:22→21:44)
[2018-11-12] MEDS: ALBUTEROL SO4 0.083% IH SOL 2.5 MG/3 ML VIAL.NEB. NEB PRN (07:38)
[2018-11-12] MEDS: ISOSORBIDE MONONITRATE 30 MG TAB.SR.24H (FP) PO SCH (10:00)
[2018-11-12] MEDS: SPIRONOLACTONE 25 MG TABLET (FP) PO SCH (10:00)
[2018-11-12] MEDS: ASPIRIN COATED 81 MG TABLET.EC PO SCH (10:00)
[2018-11-12] MEDS: LOSARTAN POTASSIUM 50 MG TABLET (FP) PO SCH (10:00)
[2018-11-12] MEDS: CARVEDILOL 25 MG TABLET (FP) PO SCH ×2 (10:00→21:43)
[2018-11-12] MEDS: guaiFENesin/CODEINE 5 ML UNIT-DOSE CUPS PO PRN ×2 (10:01→21:43)
[2018-11-12] MEDS: NICOTINE 7 MG/24 HOURS TOPICAL PATCH TD SCH (10:01)
[2018-11-12] MEDS: HEPARIN NA (PORCINE) 5,000 UNITS/ML 1ML VIAL SQ SCH ×2 (10:01→21:43)
[2018-11-12] MEDS: TOPIRAMATE 25 MG TABLET (FP) PO SCH ×2 (10:02→21:43)
[2018-11-12] MEDS: POLYETHYLENE GLYCOL 3350 119 GM BTL PO SCH (10:02)
--- NOTE | 2018-11-12 12:25 | PN ---
Progress Note (short form) - Note Progress Note: Insomnia overnight. Still with [place] and cough. No CP. CXR: 11/11: no gross change in CHF pattern Intake & Output 11/09/18 11/10/18 11/11/18 11/12/18 23:59 23:59 23:59 23:59 Intake Total 490 512 350 210 Output Total 100 Balance 490 412 350 210 Weight 220 lb 3.2 oz 219 lb 6 oz 200 lb 206 lb 4 oz Last Vital Signs Temp Pulse Resp BP Pulse Ox 99.2 F 84 20 158/94 100 11/12/18 09:00 11/12/18 09:00 11/12/18 09:00 11/12/18 09:00 11/11/18 21:00 Active Medications Acetaminophen (Tylenol -) 650 mg PO Q4H PRN PRN Reason: HEADACHE Last Admin: 11/11/18 21:10 Dose: 650 mg Albuterol Sulfate (Ventolin 0.083% Nebulizer Soln -) 1 amp NEB Q6H PRN PRN Reason: SHORT OF BREATH/WHEEZING Last Admin: 11/12/18 07:38 Dose: 1 amp Aspirin (Ecotrin -) 81 mg PO DAILY [facility] Last Admin: 11/12/18 10:00 Dose: 81 mg Carvedilol (Coreg -) 25 mg PO BID [facility] Last Admin: 11/12/18 10:00 Dose: 25 mg Furosemide (Lasix Injection -) 40 mg IVPUSH BID@0600,1400 [facility] Last Admin: 11/12/18 06:21 Dose: 40 mg Guaifenesin/Codeine Phosphate (Robitussin Ac -) 5 ml PO TID PRN PRN Reason: COUGH Last Admin: 11/12/18 10:01 Dose: 5 ml Heparin Sodium (Porcine) (Heparin -) 5,000 unit SQ BID [facility] Last Admin: 11/12/18 10:01 Dose: 5,000 unit Insulin Aspart (Novolog Vial Sliding Scale -) 1 vial SQ [facility]; Protocol Last Admin: 11/12/18 07:22 Dose: 2 units Insulin Detemir (Levemir Vial) 10 units SQ HS [facility] Last Admin: 11/11/18 21:13 Dose: 10 units Insulin Detemir (Levemir Vial) 25 units SQ DAILY@0700 [facility] Last Admin: 11/12/18 07:21 Dose: 25 units Isosorbide Mononitrate (Imdur -) 30 mg PO DAILY [facility] Last Admin: 11/12/18 10:00 Dose: 30 mg Losartan Potassium (Cozaar -) 50 mg PO DAILY [facility] Last Admin: 11/12/18 10:00 Dose: 50 mg Nicotine (Nicoderm Patch -) 7 mg TD DAILY [facility] Last Admin: 11/12/18 10:01 Dose: 7 mg Ondansetron HCl (Zofran Odt -) 4 mg SL Q6H PRN PRN Reason: NAUSEA AND/OR VOMITING Last Admin: 11/10/18 11:14 Dose: 4 mg Polyethylene Glycol (Miralax (For Daily Use) -) 17 gm PO DAILY [facility] Last Admin: 11/12/18 10:02 Dose: 17 gm Pramipexole Dihydrochloride (Mirapex -) 0.25 mg PO HS [facility] Last Admin: 11/11/18 21:10 Dose: 0.25 mg Spironolactone (Aldactone -) 25 mg PO DAILY [facility] Last Admin: 11/12/18 10:00 Dose: 25 mg Topiramate (Topamax -) 25 mg PO BID [facility] Last Admin: 11/12/18 10:02 Dose: 25 mg Constitutional: Yes: NAD Eyes: Yes: WNL HENT: Yes: WNL Neck: Yes: WNL Cardiovascular: Yes: Regular Rate and Rhythm, S1, S2 Respiratory: Yes: Bibasilar rhonchi/crackles Gastrointestinal: Yes: Normal Bowel Sounds, Soft Extremities: Yes: WNL Edema: Yes Labs: Laboratory Results - last 24 hr 11/11/18 11/11/18 11/12/18 18:05 21:09 05:29 Sodium Potassium Chloride Carbon Dioxide Anion Gap BUN Creatinine Creat Clearance w eGFR POC Glucometer 310 249 174 Random Glucose Calcium Magnesium 11/12/18 06:30 Sodium 138 Potassium 3.9 Chloride 106 Carbon Dioxide 28 Anion Gap 5 L BUN 16 Creatinine 0.7 Creat Clearance w eGFR 86.25 POC Glucometer Random Glucose 158 H Calcium 7.9 L Magnesium 2.1 Assessment/Plan Problem List - Problems (1) Acute on chronic systolic (congestive) heart failure Code(s): I50.23 - ACUTE ON CHRONIC SYSTOLIC (CONGESTIVE) HEART FAILURE (2) COPD (chronic obstructive pulmonary disease) Code(s): J44.9 - CHRONIC OBSTRUCTIVE PULMONARY DISEASE, UNSPECIFIED Qualifiers: COPD type: unspecified COPD Qualified Code(s): J44.9 - Chronic obstructive pulmonary disease, unspecified (3) Diabetes Code(s): E11.9 - TYPE 2 DIABETES MELLITUS WITHOUT COMPLICATIONS Qualifiers: Diabetes mellitus type: type 2 Diabetes mellitus continuous churn buttermaker insulin use: with continuous churn buttermaker use Diabetes mellitus complication status: with unspecified complications Qualified Code(s): E11.8 - Type 2 diabetes mellitus with unspecified complications; Z79.4 - half-way (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 of insulin (4) HTN (hypertension) Code(s): I10 - ESSENTIAL (PRIMARY) HYPERTENSION Qualifiers: Hypertension type: essential hypertension Qualified Code(s): I10 - Essential (primary) hypertension Assessment/Plan Acute on Chronic Systolic Heart Failure +Troponins Chronic Hypoxic Respiratory Failure COPD: do not suspect AE HTN DM - IV lasix BID - monitor urine output, creatinine - daily weights - O2 to keep Spo2 >90% - inhaled bronchodilators as needed - DVT prophylaxis - Monitor off systemic steroids Dr Asencio
[2018-11-12] MEDS ORDERED: FUROSEMIDE 40 MG/4 ML INJECTABLE VIAL IVPUSH SCH (12:43)
--- NOTE | 2018-11-12 13:20 | PN ---
Progress Note, Physician Chief Complaint: patient seen and examined cxr seen is still sob - Current Medication List Current Medications: Active Medications Acetaminophen (Tylenol -) 650 mg PO Q4H PRN PRN Reason: HEADACHE Last Admin: 11/11/18 21:10 Dose: 650 mg Albuterol Sulfate (Ventolin 0.083% Nebulizer Soln -) 1 amp NEB Q6H PRN PRN Reason: SHORT OF BREATH/WHEEZING Last Admin: 11/12/18 07:38 Dose: 1 amp Aspirin (Ecotrin -) 81 mg PO DAILY [facility] Last Admin: 11/12/18 10:00 Dose: 81 mg Carvedilol (Coreg -) 25 mg PO BID [facility] Last Admin: 11/12/18 10:00 Dose: 25 mg Furosemide (Lasix Injection -) 60 mg IVPUSH BID@0600,1400 [facility] Last Admin: 11/12/18 13:06 Dose: 60 mg Guaifenesin/Codeine Phosphate (Robitussin Ac -) 5 ml PO TID PRN PRN Reason: COUGH Last Admin: 11/12/18 10:01 Dose: 5 ml Heparin Sodium (Porcine) (Heparin -) 5,000 unit SQ BID [facility] Last Admin: 11/12/18 10:01 Dose: 5,000 unit Insulin Aspart (Novolog Vial Sliding Scale -) 1 vial SQ [facility]; Protocol Last Admin: 11/12/18 07:22 Dose: 2 units Insulin Detemir (Levemir Vial) 10 units SQ HS [facility] Last Admin: 11/11/18 21:13 Dose: 10 units Insulin Detemir (Levemir Vial) 25 units SQ DAILY@0700 [facility] Last Admin: 11/12/18 07:21 Dose: 25 units Isosorbide Mononitrate (Imdur -) 30 mg PO DAILY [facility] Last Admin: 11/12/18 10:00 Dose: 30 mg Losartan Potassium (Cozaar -) 50 mg PO DAILY [facility] Last Admin: 11/12/18 10:00 Dose: 50 mg Nicotine (Nicoderm Patch -) 7 mg TD DAILY [facility] Last Admin: 11/12/18 10:01 Dose: 7 mg Ondansetron HCl (Zofran Odt -) 4 mg SL Q6H PRN PRN Reason: NAUSEA AND/OR VOMITING Last Admin: 11/10/18 11:14 Dose: 4 mg Polyethylene Glycol (Miralax (For Daily Use) -) 17 gm PO DAILY [facility] Last Admin: 11/12/18 10:02 Dose: 17 gm Pramipexole Dihydrochloride (Mirapex -) 0.25 mg PO HS [facility] Last Admin: 11/11/18 21:10 Dose: 0.25 mg Spironolactone (Aldactone -) 25 mg PO DAILY [facility] Last Admin: 11/12/18 10:00 Dose: 25 mg Topiramate (Topamax -) 25 mg PO BID [facility] Last Admin: 11/12/18 10:02 Dose: 25 mg - Objective Vital Signs: Vital Signs Temperature 99.2 F 11/12/18 09:00 Pulse Rate 84 11/12/18 09:00 Respiratory Rate 20 11/12/18 10:00 Blood Pressure 158/94 11/12/18 09:00 O2 Sat by Pulse Oximetry (%) 100 11/12/18 10:00 Constitutional: Yes: Calm Cardiovascular: Yes: Regular Rate and Rhythm, S1, S2 Respiratory: Yes: On Nasal O2, Rhonchi Gastrointestinal: Yes: Normal Bowel Sounds, Soft Edema: Yes Neurological: Yes: Alert, Oriented Labs: CBC, BMP 11/10/18 06:15 11/12/18 06:30 INR, PTT INR 1.10 (0.83-1.09) H 11/07/18 13:08 Problem List - Problems (1) CHF (congestive heart failure) Assessment/Plan: tele echo done severly reduced systolic function and global hypokinesis iv 40mg lasix BID inc to 60mg iv bid- cxr seems worse daily weight- trending upwards again will increase lasix dose coreg 25mg bid cozaar aldactone Code(s): I50.9 - HEART FAILURE, UNSPECIFIED (2) Abnormal liver enzymes Assessment/Plan: secondary to hepatic congestion lft is trending down Code(s): R74.8 - ABNORMAL LEVELS OF OTHER SERUM ENZYMES (3) Diabetes Assessment/Plan: sliding scale insulin [id number] 11.1 Code(s): E11.9 - TYPE 2 DIABETES MELLITUS WITHOUT COMPLICATIONS Qualifiers: Diabetes mellitus type: type 2 Diabetes mellitus mcfp insulin use: with technician terminal and repeater use Diabetes mellitus complication status: with unspecified complications Qualified Code(s): E11.8 - Type 2 diabetes mellitus with unspecified complications; Z79.4 - snf (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 of insulin (4) COPD (chronic obstructive pulmonary disease) Assessment/Plan: oxygen and bronchodilators no need for steroids Code(s): J44.9 - CHRONIC OBSTRUCTIVE PULMONARY DISEASE, UNSPECIFIED Qualifiers: COPD type: unspecified COPD Qualified Code(s): J44.9 - Chronic obstructive pulmonary disease, unspecified Assessment/Plan trasnfer to med surg
[2018-11-12] MEDS ORDERED: ONDANSETRON *ODT* 4 MG TABLET SL PRN (15:57)
--- NOTE | 2018-11-12 20:02 | PN ---
Progress Note, Physician Chief Complaint: coughing and wheezing less - Current Medication List Current Medications: Active Medications Acetaminophen (Tylenol -) 650 mg PO Q4H PRN PRN Reason: HEADACHE Albuterol Sulfate (Ventolin 0.083% Nebulizer Soln -) 1 amp NEB Q6H PRN PRN Reason: SHORT OF BREATH/WHEEZING Aspirin (Ecotrin -) 81 mg PO DAILY [facility] Carvedilol (Coreg -) 25 mg PO BID [facility] Furosemide (Lasix Injection -) 60 mg IVPUSH BID@0600,1400 [facility] Guaifenesin/Codeine Phosphate (Robitussin Ac -) 5 ml PO TID PRN PRN Reason: COUGH Heparin Sodium (Porcine) (Heparin -) 5,000 unit SQ BID [facility] Insulin Aspart (Novolog Vial Sliding Scale -) 1 vial SQ ACHS [facility]; Protocol Last Admin: 11/12/18 17:46 Dose: 6 units Insulin Detemir (Levemir Vial) 10 units SQ HS [facility] Insulin Detemir (Levemir Vial) 25 units SQ DAILY@0700 [facility] Isosorbide Mononitrate (Imdur -) 30 mg PO DAILY [facility] Losartan Potassium (Cozaar -) 50 mg PO DAILY [facility] Nicotine (Nicoderm Patch -) 7 mg TD DAILY [facility] Ondansetron HCl (Zofran Odt -) 4 mg SL Q6H PRN PRN Reason: NAUSEA AND/OR VOMITING Polyethylene Glycol (Miralax (For Daily Use) -) 17 gm PO DAILY [facility] Pramipexole Dihydrochloride (Mirapex -) 0.25 mg PO HS [facility] Spironolactone (Aldactone -) 25 mg PO DAILY [facility] Topiramate (Topamax -) 25 mg PO BID [facility] - Objective Vital Signs: Vital Signs Temperature 98.4 F 11/12/18 18:15 Pulse Rate 94 H 11/12/18 18:15 Respiratory Rate 20 11/12/18 18:15 Blood Pressure 153/97 11/12/18 18:15 O2 Sat by Pulse Oximetry (%) 100 11/12/18 17:44 Constitutional: Yes: Calm Eyes: Yes: EOM Intact HENT: Yes: Normocephalic Neck: Yes: Trachea Midline Cardiovascular: Yes: Tachycardia Respiratory: Yes: Rhonchi, SOB on Exertion, Tachypnea, Wheezes Gastrointestinal: Yes: Normal Bowel Sounds ...Rectal Exam: Yes: Deferred Genitourinary: Yes: WNL Musculoskeletal: Yes: Back Pain, Muscle Weakness Edema: LLE: 1+, RLE: 1+ Neurological: Yes: Alert, Oriented Labs: CBC, BMP 11/10/18 06:15 11/12/18 06:30 INR, PTT INR 1.10 (0.83-1.09) H 11/07/18 13:08 Problem List - Problems (1) Type 2 diabetes mellitus with diabetic nephropathy Code(s): E11.21 - TYPE 2 DIABETES MELLITUS WITH DIABETIC NEPHROPATHY (2) CHF (congestive heart failure) Code(s): I50.9 - HEART FAILURE, UNSPECIFIED (3) Chronic hypoxemic respiratory failure Code(s): J96.11 - CHRONIC RESPIRATORY FAILURE WITH HYPOXIA (4) Abnormal liver enzymes Code(s): R74.8 - ABNORMAL LEVELS OF OTHER SERUM ENZYMES (5) Acute on chronic respiratory failure with hypoxemia Code(s): J96.21 - ACUTE AND CHRONIC RESPIRATORY FAILURE WITH HYPOXIA (6) Acute on chronic systolic (congestive) heart failure Code(s): I50.23 - ACUTE ON CHRONIC SYSTOLIC (CONGESTIVE) HEART FAILURE (7) Asthma Code(s): J45.909 - UNSPECIFIED ASTHMA, UNCOMPLICATED Qualifiers: Asthma severity: unspecified severity Asthma complication type: uncomplicated Assessment/Plan Current Active Problems CHF (congestive heart failure) (Acute) Chronic hypoxemic respiratory failure (Acute) Noncompliance of patient with dietary regimen (Acute) Noncompliance with diabetes treatment (Acute) Type 2 diabetes mellitus with diabetic nephropathy (Acute) Abnormal Lab Results 11/12/18 06:30 Anion Gap 5 L Random Glucose 158 H Calcium 7.9 L Laboratory Results - last 24 hr 11/11/18 11/12/18 11/12/18 21:09 05:29 06:30 Sodium 138 Potassium 3.9 Chloride 106 Carbon Dioxide 28 Anion Gap 5 L BUN 16 Creatinine 0.7 Creat Clearance w eGFR 86.25 POC Glucometer 249 174 Random Glucose 158 H Calcium 7.9 L Magnesium 2.1 11/12/18 11/12/18 13:12 17:21 Sodium Potassium Chloride Carbon Dioxide Anion Gap BUN Creatinine Creat Clearance w eGFR POC Glucometer 208 280 Random Glucose Calcium Magnesium plan: Current Medications Generic Name Dose Route Start Last Admin Trade Name Freq PRN Reason Stop Dose Admin Acetaminophen 650 mg 11/12/18 15:57 Tylenol - PO Q4H PRN HEADACHE Albuterol Sulfate 1 amp 11/12/18 15:57 Ventolin 0.083% Nebulizer Soln - NEB Q6H PRN SHORT OF BREATH/WHEEZING Aspirin 81 mg 11/13/18 10:00 Ecotrin - PO DAILY [facility] Carvedilol 25 mg 11/12/18 22:00 Coreg - PO BID [facility] Furosemide 60 mg 11/13/18 06:00 Lasix Injection - IVPUSH BID@0600,1400 [facility] Guaifenesin/Codeine Phosphate 5 ml 11/12/18 15:57 Robitussin Ac - PO TID PRN COUGH Heparin Sodium (Porcine) 5,000 unit 11/12/18 22:00 Heparin - SQ BID [facility] Insulin Aspart 1 vial 11/12/18 16:30 11/12/18 17:46 Novolog Vial Sliding Scale - SQ 6 units ACHS [facility] Administration Protocol Insulin Detemir 10 units 11/12/18 22:00 Levemir Vial SQ HS [facility] Insulin Detemir 25 units 11/13/18 07:00 Levemir Vial SQ DAILY@0700 [facility] Isosorbide Mononitrate 30 mg 11/13/18 10:00 Imdur - PO DAILY [facility] Losartan Potassium 50 mg 11/13/18 10:00 Cozaar - PO DAILY [facility] Nicotine 7 mg 11/13/18 10:00 Nicoderm Patch - TD DAILY [facility] Ondansetron HCl 4 mg 11/12/18 15:57 Zofran Odt - SL Q6H PRN NAUSEA AND/OR VOMITING Polyethylene Glycol 17 gm 11/13/18 10:00 Miralax (For Daily Use) - PO DAILY [facility] Pramipexole Dihydrochloride 0.25 mg 11/12/18 22:00 Mirapex - PO HS [facility] Spironolactone 25 mg 11/13/18 10:00 Aldactone - PO DAILY [facility] Topiramate 25 mg 11/12/18 22:00 Topamax - PO BID [facility] levemir bid doses
[2018-11-12] MEDS: PRAMIPEXOLE DIHYDROCHLORIDE 0.25 MG TABLET PO SCH (21:43)
[2018-11-13] MEDS: FUROSEMIDE 40 MG/4 ML INJECTABLE VIAL IVPUSH SCH ×2 (06:52→16:48)
[2018-11-13] MEDS: INSULIN SLIDING SCALE (NOVOLOG) 1 VIAL SQ SCH ×4 (06:53→21:51)
[2018-11-13] MEDS ORDERED: INSULIN (LEVEMIR) 100 UNITS/ML UNITS SQ SCH (07:00)
[2018-11-13] MEDS ORDERED: INSULIN (LEVEMIR) 100 UNITS/ML UNITS SQ ONE (07:05)
[2018-11-13] MEDS ORDERED: INSULIN (NOVOLOG) ASPART 100 UNITS/ML 10ML VIAL ONE ×2 (07:06→11:23)
[2018-11-13 07:20] LABS: BASO % 0.6 % (0-2.0); HEMATOCRIT 43.2 % (32.4-45.2); HEMOGLOBIN 14.1 GM/dL (10.7-15.3); LYMPH % 14.8 % (8-40); MCH 30.1 pg (25.7-33.7); MCHC 32.6 g/dl (32.0-36.0); MEAN CELL VOLUME 92.5 fl (80-96); MEAN PLT VOLUME 8.2 fl (7.5-11.1); MONO % 12.2 % (3.8-10.2); NEUT % 71.4 % (42.8-82.8); PLATELET COUNT 208 K/MM3 (134-434); RBC 4.67 M/mm3 (3.60-5.2); RDW 17.9 % (11.6-15.6); WHITE BLOOD COUNT 6.5 K/mm3 (4.0-10.0)
[2018-11-13 08:56] LABS: ALBUMIN 2.6 g/dl (3.4-5.0); ALK PHOS 181 U/L (45-117); ANION GAP 6 MMOL/L (8-16); BILIRUBIN,TOTAL 0.8 mg/dL (0.2-1); BLOOD UREA NITROGEN 13 mg/dL (7-18); CALCIUM 8.3 mg/dL (8.5-10.1); CHLORIDE 103 mmol/L (98-107); CO2 26 mmol/L (21-32); CREATININE 0.7 mg/dL (0.55-1.3); GLUCOSE,RANDOM 131 mg/dL (74-106); MAGNESIUM 2.1 mg/dL (1.8-2.4); POTASSIUM 4.3 mmol/L (3.5-5.1); SGOT/AST 20 U/L (15-37); SGPT/ALT 38 U/L (13-61); SODIUM 135 mmol/L (136-145); TOT PROT 6.2 g/dl (6.4-8.2)
--- NOTE | 2018-11-13 10:43 | PN ---
Progress Note, Physician Chief Complaint: SOB Acute on chronic CHF COPD exacerbation - Current Medication List Current Medications: Active Medications Acetaminophen (Tylenol -) 650 mg PO Q4H PRN PRN Reason: HEADACHE Albuterol Sulfate (Ventolin 0.083% Nebulizer Soln -) 1 amp NEB Q6H PRN PRN Reason: SHORT OF BREATH/WHEEZING Aspirin (Ecotrin -) 81 mg PO DAILY [facility] Carvedilol (Coreg -) 25 mg PO BID [facility] Last Admin: 11/12/18 21:43 Dose: 25 mg Furosemide (Lasix Injection -) 60 mg IVPUSH BID@0600,1400 [facility] Last Admin: 11/13/18 06:52 Dose: 60 mg Guaifenesin/Codeine Phosphate (Robitussin Ac -) 5 ml PO TID PRN PRN Reason: COUGH Last Admin: 11/12/18 21:43 Dose: 5 ml Heparin Sodium (Porcine) (Heparin -) 5,000 unit SQ BID [facility] Last Admin: 11/12/18 21:43 Dose: Not Given Insulin Aspart (Novolog Vial Sliding Scale -) 1 vial SQ [facility]; Protocol Last Admin: 11/13/18 06:53 Dose: Not Given Insulin Detemir (Levemir Vial) 10 units [address]Q [facility] Last Admin: 11/12/18 21:44 Dose: 10 units Insulin Detemir (Levemir Vial) 25 units SQ DAILY@0700 [facility] Last Admin: 11/13/18 06:55 Dose: 25 units Isosorbide Mononitrate (Imdur -) 30 mg PO DAILY [facility] Losartan Potassium (Cozaar -) 50 mg PO DAILY [facility] Nicotine (Nicoderm Patch -) 7 mg TD DAILY [facility] Ondansetron HCl (Zofran Odt -) 4 mg SL Q6H PRN PRN Reason: NAUSEA AND/OR VOMITING Polyethylene Glycol (Miralax (For Daily Use) -) 17 gm PO DAILY [facility] Pramipexole Dihydrochloride (Mirapex -) 0.25 mg PO [facility] Last Admin: 11/12/18 21:43 Dose: 0.25 mg Spironolactone (Aldactone -) 25 mg PO DAILY [facility] Topiramate (Topamax -) 25 mg PO BID [facility] Last Admin: 11/12/18 21:43 Dose: 25 mg - Objective Vital Signs: Vital Signs Temperature 98.8 F 11/13/18 06:00 Pulse Rate 96 H 11/13/18 06:00 Respiratory Rate 20 11/13/18 06:00 Blood Pressure 127/88 11/13/18 06:00 O2 Sat by Pulse Oximetry (%) 98 11/12/18 21:00 Constitutional: Yes: Well Nourished, No Distress, Calm, Obese Cardiovascular: Yes: Regular Rate and Rhythm Respiratory: Yes: Regular Gastrointestinal: Yes: Normal Bowel Sounds, Soft, Abdomen, Obese Genitourinary: Yes: Incontinence Musculoskeletal: Yes: Muscle Weakness Extremities: Yes: WNL Edema: Yes Edema: LLE: 3+, RLE: 3+ Peripheral Pulses WNL: Yes Neurological: Yes: Alert, Oriented Psychiatric: Yes: Alert, Oriented Labs: CBC, BMP 11/13/18 06:30 11/13/18 06:30 INR, PTT INR 1.10 (0.83-1.09) H 11/07/18 13:08 Problem List - Problems (1) Chronic hypoxemic respiratory failure Assessment/Plan: -Pulmonary on board -Nasal O2 PRN -Bronchodilators -Furosemide 60 mg IVP BID Code(s): J96.11 - CHRONIC RESPIRATORY FAILURE WITH HYPOXIA (2) Noncompliance of patient with dietary regimen Code(s): Z91.11 - PATIENT'S NONCOMPLIANCE WITH DIETARY REGIMEN (3) Type 2 diabetes mellitus with diabetic nephropathy Assessment/Plan: at 11.1 -Endocrinology on board -[facility] -Insuline: levemir + Novolog sliding scale -Low sodium diabetic diet -RD consult Code(s): E11.21 - TYPE 2 DIABETES MELLITUS WITH DIABETIC NEPHROPATHY (4) Acute on chronic systolic (congestive) heart failure Assessment/Plan: -Cardiology on board -I&O's -daily weights -Low sodium diabetic diet -Furosemide 60 mg IVP BID -RD consult -Repeat CXR 11/11/18 shows no change Code(s): I50.23 - ACUTE ON CHRONIC SYSTOLIC (CONGESTIVE) HEART FAILURE Assessment/Plan see problem list dvt prophylaxis Physical therapy- walked 10 ft, eligible for SNF
[2018-11-13] MEDS: LOSARTAN POTASSIUM 50 MG TABLET (FP) PO SCH (11:30)
[2018-11-13] MEDS: POLYETHYLENE GLYCOL 3350 119 GM BTL PO SCH (11:30)
[2018-11-13] MEDS: ASPIRIN COATED 81 MG TABLET.EC PO SCH (11:31)
[2018-11-13] MEDS: CARVEDILOL 25 MG TABLET (FP) PO SCH ×2 (11:31→21:51)
[2018-11-13] MEDS: ISOSORBIDE MONONITRATE 30 MG TAB.SR.24H (FP) PO SCH (11:31)
[2018-11-13] MEDS: SPIRONOLACTONE 25 MG TABLET (FP) PO SCH (11:31)
[2018-11-13] MEDS: TOPIRAMATE 25 MG TABLET (FP) PO SCH ×2 (11:31→21:51)
[2018-11-13] MEDS: NICOTINE 7 MG/24 HOURS TOPICAL PATCH TD SCH (11:32)
[2018-11-13] MEDS: HEPARIN NA (PORCINE) 5,000 UNITS/ML 1ML VIAL SQ SCH ×2 (11:32→21:52)
--- NOTE | 2018-11-13 11:39 | PN ---
Progress Note, Physician History of Present Illness: pulmonary alert,+congestion,+ cough,+ hemoptysis - Current Medication List Current Medications: Active Medications Acetaminophen (Tylenol -) 650 mg PO Q4H PRN PRN Reason: HEADACHE Albuterol Sulfate (Ventolin 0.083% Nebulizer Soln -) 1 amp NEB Q6H PRN PRN Reason: SHORT OF BREATH/WHEEZING Aspirin (Ecotrin -) 81 mg PO DAILY [facility] Carvedilol (Coreg -) 25 mg PO BID [facility] Last Admin: 11/12/18 21:43 Dose: 25 mg Furosemide (Lasix Injection -) 60 mg IVPUSH BID@0600,1400 [facility] Last Admin: 11/13/18 06:52 Dose: 60 mg Guaifenesin/Codeine Phosphate (Robitussin Ac -) 5 ml PO TID PRN PRN Reason: COUGH Last Admin: 11/12/18 21:43 Dose: 5 ml Heparin Sodium (Porcine) (Heparin -) 5,000 unit SQ BID [facility] Last Admin: 11/12/18 21:43 Dose: Not Given Insulin Aspart (Novolog Vial Sliding Scale -) 1 vial SQ [facility]; Protocol Last Admin: 11/13/18 06:53 Dose: Not Given Insulin Detemir (Levemir Vial) 10 units SQ HS [facility] Last Admin: 11/12/18 21:44 Dose: 10 units Insulin Detemir (Levemir Vial) 25 units SQ DAILY@0700 [facility] Last Admin: 11/13/18 06:55 Dose: 25 units Isosorbide Mononitrate (Imdur -) 30 mg PO DAILY [facility] Losartan Potassium (Cozaar -) 50 mg PO DAILY [facility] Nicotine (Nicoderm Patch -) 7 mg TD DAILY [facility] Ondansetron HCl (Zofran Odt -) 4 mg SL Q6H PRN PRN Reason: NAUSEA AND/OR VOMITING Polyethylene Glycol (Miralax (For Daily Use) -) 17 gm PO DAILY [facility] Pramipexole Dihydrochloride (Mirapex -) 0.25 mg PO HS [facility] Last Admin: 11/12/18 21:43 Dose: 0.25 mg Spironolactone (Aldactone -) 25 mg PO DAILY [facility] Topiramate (Topamax -) 25 mg PO BID [facility] Last Admin: 11/12/18 21:43 Dose: 25 mg - Objective Vital Signs: Vital Signs Temperature 98.8 F 11/13/18 06:00 Pulse Rate 96 H 11/13/18 06:00 Respiratory Rate 20 11/13/18 06:00 Blood Pressure 127/88 11/13/18 06:00 O2 Sat by Pulse Oximetry (%) 98 11/12/18 21:00 Constitutional: Yes: Well Nourished, Calm Eyes: Yes: WNL HENT: Yes: WNL Neck: Yes: WNL Cardiovascular: Yes: Regular Rate and Rhythm, S1, S2 Respiratory: Yes: Rhonchi (vivi rhonchi) Gastrointestinal: Yes: Normal Bowel Sounds, Soft Extremities: Yes: WNL Edema: Yes Labs: CBC, BMP 11/13/18 06:30 11/13/18 06:30 INR, PTT INR 1.10 (0.83-1.09) H 11/07/18 13:08 Problem List - Problems (1) Chronic hypoxemic respiratory failure Code(s): J96.11 - CHRONIC RESPIRATORY FAILURE WITH HYPOXIA Assessment/Plan Problem List - Problems (1) Acute on chronic systolic (congestive) heart failure Code(s): I50.23 - ACUTE ON CHRONIC SYSTOLIC (CONGESTIVE) HEART FAILURE (2) COPD (chronic obstructive pulmonary disease) Code(s): J44.9 - CHRONIC OBSTRUCTIVE PULMONARY DISEASE, UNSPECIFIED Qualifiers: COPD type: unspecified COPD Qualified Code(s): J44.9 - Chronic obstructive pulmonary disease, unspecified (3) Diabetes Code(s): E11.9 - TYPE 2 DIABETES MELLITUS WITHOUT COMPLICATIONS Qualifiers: Diabetes mellitus type: type 2 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 insulin use: with [facility] use Diabetes mellitus complication status: with unspecified complications Qualified Code(s): E11.8 - Type 2 diabetes mellitus with unspecified complications; Z79.4 - halfway (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 of insulin (4) HTN (hypertension) Code(s): I10 - ESSENTIAL (PRIMARY) HYPERTENSION Qualifiers: Hypertension type: essential hypertension Qualified Code(s): I10 - Essential (primary) hypertension Assessment/Plan Acute on Chronic Systolic Heart Failure +Troponins Chronic Hypoxic Respiratory Failure COPD HTN DM HEMOPTYSIS - IV lasix - monitor urine output, creatinine - daily weights - O2 to keep Spo2 >90% - inhaled bronchodilators as needed - DVT prophylaxis - chest ct - quantify hemoptysis DR LOMELI
[2018-11-13] MEDS: guaiFENesin/CODEINE 5 ML UNIT-DOSE CUPS PO PRN ×2 (15:33→21:50)
[2018-11-13] MEDS: ALBUTEROL SO4 0.083% IH SOL 2.5 MG/3 ML VIAL.NEB. NEB PRN (20:35)
[2018-11-13] MEDS ORDERED: PT OWN MED DRAWER 7, Y5N ONE (21:39)
[2018-11-13] MEDS: INSULIN (LEVEMIR) 100 UNITS/ML UNITS SQ SCH (21:50)
[2018-11-13] MEDS: PRAMIPEXOLE DIHYDROCHLORIDE 0.25 MG TABLET PO SCH (21:51)
[2018-11-13] MEDS: ATORVASTATIN CA 10 MG TABLET (FP) PO SCH (21:51)
[2018-11-13] MEDS: ACETAMINOPHEN 325 MG TABLET (FP) PO PRN (21:59)
[2018-11-14] MEDS: FUROSEMIDE 40 MG/4 ML INJECTABLE VIAL IVPUSH SCH ×2 (06:28→14:29)
[2018-11-14] MEDS: INSULIN SLIDING SCALE (NOVOLOG) 1 VIAL SQ SCH ×4 (06:35→22:32)
[2018-11-14 07:59] LABS: BASO % 0.5 % (0-2.0); EOS % 1.7 % (0-4.5); HEMATOCRIT 42.5 % (32.4-45.2); HEMOGLOBIN 13.7 GM/dL (10.7-15.3); LYMPH % 19.6 % (8-40); MCH 29.6 pg (25.7-33.7); MCHC 32.2 g/dl (32.0-36.0); MEAN PLT VOLUME 8.2 fl (7.5-11.1); MONO % 13.8 % (3.8-10.2); NEUT % 64.4 % (42.8-82.8); PLATELET COUNT 203 K/MM3 (134-434); RBC 4.62 M/mm3 (3.60-5.2); RDW 17.9 % (11.6-15.6); WHITE BLOOD COUNT 5.8 K/mm3 (4.0-10.0)
[2018-11-14 08:29] LABS: ALBUMIN 2.3 g/dl (3.4-5.0); ALK PHOS 172 U/L (45-117); ANION GAP 7 MMOL/L (8-16); BLOOD UREA NITROGEN 13 mg/dL (7-18); CALCIUM 7.9 mg/dL (8.5-10.1); CHLORIDE 103 mmol/L (98-107); CO2 29 mmol/L (21-32); CREATININE 0.7 mg/dL (0.55-1.3); GLUCOSE,RANDOM 92 mg/dL (74-106); POTASSIUM 3.5 mmol/L (3.5-5.1); SGOT/AST 15 U/L (15-37); SGPT/ALT 29 U/L (13-61); SODIUM 139 mmol/L (136-145); TOT PROT 5.6 g/dl (6.4-8.2)
--- NOTE | 2018-11-14 09:50 | PN ---
Progress Note, Physician - Current Medication List Current Medications: Active Medications Acetaminophen (Tylenol -) 650 mg PO Q4H PRN PRN Reason: HEADACHE Last Admin: 11/13/18 21:59 Dose: 650 mg Albuterol Sulfate (Ventolin 0.083% Nebulizer Soln -) 1 amp NEB Q6H PRN PRN Reason: SHORT OF BREATH/WHEEZING Last Admin: 11/13/18 20:35 Dose: 1 amp Aspirin (Ecotrin -) 81 mg PO DAILY [facility] Last Admin: 11/13/18 11:31 Dose: 81 mg Atorvastatin Calcium (Lipitor -) 10 mg PO HS [facility] Last Admin: 11/13/18 21:51 Dose: 10 mg Carvedilol (Coreg -) 25 mg PO BID [facility] Last Admin: 11/13/18 21:51 Dose: 25 mg Furosemide (Lasix Injection -) 60 mg IVPUSH BID@0600,1400 [facility] Last Admin: 11/14/18 06:28 Dose: 60 mg Guaifenesin/Codeine Phosphate (Robitussin Ac -) 5 ml PO TID PRN PRN Reason: COUGH Last Admin: 11/13/18 21:50 Dose: 5 ml Heparin Sodium (Porcine) (Heparin -) 5,000 unit SQ BID [facility] Last Admin: 11/13/18 21:52 Dose: 5,000 unit Insulin Aspart (Novolog Vial Sliding Scale -) 1 vial SQ [facility]; Protocol Last Admin: 11/14/18 06:35 Dose: Not Given Insulin Detemir (Levemir Vial) 35 units SQ DAILY@0700 [facility] Insulin Detemir (Levemir Vial) 15 units SQ [facility] Isosorbide Mononitrate (Imdur -) 30 mg PO DAILY [facility] Last Admin: 11/13/18 11:31 Dose: 30 mg Losartan Potassium (Cozaar -) 50 mg PO DAILY [facility] Last Admin: 11/13/18 11:30 Dose: 50 mg Nicotine (Nicoderm Patch -) 7 mg TD DAILY [facility] Last Admin: 11/13/18 11:32 Dose: 7 mg Ondansetron HCl (Zofran Odt -) 4 mg SL Q6H PRN PRN Reason: NAUSEA AND/OR VOMITING Polyethylene Glycol (Miralax (For Daily Use) -) 17 gm PO DAILY [facility] Last Admin: 11/13/18 11:30 Dose: Not Given Pramipexole Dihydrochloride (Mirapex -) 0.25 mg PO [facility] Last Admin: 11/13/18 21:51 Dose: 0.25 mg Spironolactone (Aldactone -) 25 mg PO DAILY [facility] Last Admin: 11/13/18 11:31 Dose: 25 mg Topiramate (Topamax -) 25 mg PO BID [facility] Last Admin: 11/13/18 21:51 Dose: 25 mg - Objective Vital Signs: Vital Signs Temperature 98.5 F 11/14/18 06:00 Pulse Rate 79 11/14/18 06:00 Respiratory Rate 20 11/14/18 06:00 Blood Pressure 101/57 L 11/14/18 06:00 O2 Sat by Pulse Oximetry (%) 96 11/13/18 21:00 Cardiovascular: Yes: S1, S2 Respiratory: Yes: Rhonchi, Wheezes Gastrointestinal: Yes: Normal Bowel Sounds, Soft Labs: CBC, BMP 11/14/18 05:30 11/14/18 05:30 INR, PTT INR 1.10 (0.83-1.09) H 11/07/18 13:08 Assessment/Plan - Problems (1) Chronic hypoxemic respiratory failure Assessment/Plan: -Pulmonary on board -Nasal O2 PRN -Bronchodilators -Furosemide 60 mg IVP BID -Prednisone 40 qd Code(s): J96.11 - CHRONIC RESPIRATORY FAILURE WITH HYPOXIA (2) Noncompliance of patient with dietary regimen Code(s): Z91.11 - PATIENT'S NONCOMPLIANCE WITH DIETARY REGIMEN (3) Type 2 diabetes mellitus with diabetic nephropathy Assessment/Plan: at 11.1 -Endocrinology on board -[facility] -Insuline: levemir + Novolog sliding scale -Low sodium diabetic diet -RD consult Code(s): E11.21 - TYPE 2 DIABETES MELLITUS WITH DIABETIC NEPHROPATHY (4) Acute on chronic systolic (congestive) heart failure Assessment/Plan: -Cardiology on board -I&O's -daily weights -Low sodium diabetic diet -Furosemide 60 mg IVP BID -RD consult -Repeat CXR 11/11/18 shows no change Code(s): I50.23 - ACUTE ON CHRONIC SYSTOLIC (CONGESTIVE) HEART FAILURE see problem list dvt prophylaxis Physical therapy- walked 10 ft, eligible for SNF
[2018-11-14] MEDS: ACETAMINOPHEN 325 MG TABLET (FP) PO PRN (10:15)
[2018-11-14] MEDS: INSULIN (LEVEMIR) 100 UNITS/ML UNITS SQ SCH ×2 (10:18→22:32)
[2018-11-14] MEDS ORDERED: INSULIN (LEVEMIR) 100 UNITS/ML UNITS SQ ONE (10:30)
[2018-11-14] MEDS ORDERED: PT OWN MED DRAWER 7, Y5N ONE ×2 (11:20→20:57)
[2018-11-14] MEDS: POLYETHYLENE GLYCOL 3350 119 GM BTL PO SCH (11:21)
[2018-11-14] MEDS: ASPIRIN COATED 81 MG TABLET.EC PO SCH (11:23)
[2018-11-14] MEDS: CARVEDILOL 25 MG TABLET (FP) PO SCH ×2 (11:24→22:32)
[2018-11-14] MEDS: SPIRONOLACTONE 25 MG TABLET (FP) PO SCH (11:24)
[2018-11-14] MEDS: TOPIRAMATE 25 MG TABLET (FP) PO SCH ×2 (11:24→22:32)
[2018-11-14] MEDS: HEPARIN NA (PORCINE) 5,000 UNITS/ML 1ML VIAL SQ SCH ×2 (11:24→22:33)
[2018-11-14] MEDS: NICOTINE 7 MG/24 HOURS TOPICAL PATCH TD SCH (11:24)
[2018-11-14] MEDS: LOSARTAN POTASSIUM 50 MG TABLET (FP) PO SCH (11:24)
[2018-11-14] MEDS: ISOSORBIDE MONONITRATE 30 MG TAB.SR.24H (FP) PO SCH (11:24)
[2018-11-14] MEDS: ALBUTEROL SO4 2.5/IPRATROPIUM 0.5 INH SOL 3 ML VIAL.NEB. NEB SCH ×3 (11:50→20:15)
[2018-11-14] MEDS: predniSONE 20 MG TABLET (UD) PO SCH (12:35)
--- NOTE | 2018-11-14 13:09 | PN ---
Progress Note, Physician History of Present Illness: pulmonary alert,less congested,-hemoptysis. chest cta -PE,MICKEY,LLL consolidation - Current Medication List Current Medications: Active Medications Acetaminophen (Tylenol -) 650 mg PO Q4H PRN PRN Reason: HEADACHE Last Admin: 11/14/18 10:15 Dose: 650 mg Albuterol Sulfate (Ventolin 0.083% Nebulizer Soln -) 1 amp NEB Q6H PRN PRN Reason: SHORT OF BREATH/WHEEZING Last Admin: 11/13/18 20:35 Dose: 1 amp Albuterol/Ipratropium (Duoneb -) 1 amp NEB RQID [facility] Last Admin: 11/14/18 11:50 Dose: 1 amp Aspirin (Ecotrin -) 81 mg PO DAILY [facility] Last Admin: 11/14/18 11:23 Dose: 81 mg Atorvastatin Calcium (Lipitor -) 10 mg PO HS [facility] Last Admin: 11/13/18 21:51 Dose: 10 mg Carvedilol (Coreg -) 25 mg PO BID [facility] Last Admin: 11/14/18 11:24 Dose: 25 mg Furosemide (Lasix Injection -) 60 mg IVPUSH BID@0600,1400 [facility] Last Admin: 11/14/18 06:28 Dose: 60 mg Guaifenesin/Codeine Phosphate (Robitussin Ac -) 5 ml PO TID PRN PRN Reason: COUGH Last Admin: 11/13/18 21:50 Dose: 5 ml Heparin Sodium (Porcine) (Heparin -) 5,000 unit SQ BID [facility] Last Admin: 11/14/18 11:24 Dose: 5,000 unit Insulin Aspart (Novolog Vial Sliding Scale -) 1 vial SQ [facility]; Protocol Last Admin: 11/14/18 12:15 Dose: 2 units Insulin Detemir (Levemir Vial) 35 units SQ DAILY@0700 [facility] Last Admin: 11/14/18 10:18 Dose: Not Given Insulin Detemir (Levemir Vial) 15 units SQ [facility] Isosorbide Mononitrate (Imdur -) 30 mg PO DAILY [facility] Last Admin: 11/14/18 11:24 Dose: 30 mg Losartan Potassium (Cozaar -) 50 mg PO DAILY [facility] Last Admin: 11/14/18 11:24 Dose: 50 mg Nicotine (Nicoderm Patch -) 7 mg TD DAILY [facility] Last Admin: 11/14/18 11:24 Dose: 7 mg Ondansetron HCl (Zofran Odt -) 4 mg SL Q6H PRN PRN Reason: NAUSEA AND/OR VOMITING Polyethylene Glycol (Miralax (For Daily Use) -) 17 gm PO DAILY [facility] Last Admin: 11/14/18 11:21 Dose: Not Given Pramipexole Dihydrochloride (Mirapex -) 0.25 mg PO HS [facility] Last Admin: 11/13/18 21:51 Dose: 0.25 mg Prednisone (Deltasone -) 40 mg PO DAILY [facility] Last Admin: 11/14/18 12:35 Dose: 40 mg Spironolactone (Aldactone -) 25 mg PO DAILY [facility] Last Admin: 11/14/18 11:24 Dose: 25 mg Topiramate (Topamax -) 25 mg PO BID [facility] Last Admin: 11/14/18 11:24 Dose: 25 mg - Objective Vital Signs: Vital Signs Temperature 98.1 F 11/14/18 10:05 Pulse Rate 85 11/14/18 10:05 Respiratory Rate 24 H 11/14/18 10:05 Blood Pressure 122/81 11/14/18 10:05 O2 Sat by Pulse Oximetry (%) 96 11/13/18 21:00 Constitutional: Yes: Well Nourished, Calm Eyes: Yes: WNL HENT: Yes: WNL Neck: Yes: WNL Cardiovascular: Yes: Regular Rate and Rhythm, S1, S2 Respiratory: Yes: Rhonchi (JAVY RHONCHI) Gastrointestinal: Yes: Normal Bowel Sounds, Soft Extremities: Yes: WNL Edema: Yes Labs: CBC, BMP 11/14/18 05:30 11/14/18 05:30 INR, PTT INR 1.10 (0.83-1.09) H 11/07/18 13:08 - ....Imaging Cat Scan: Report Reviewed, Image Reviewed Problem List - Problems (1) Chronic hypoxemic respiratory failure Code(s): J96.11 - CHRONIC RESPIRATORY FAILURE WITH HYPOXIA Assessment/Plan Problem List - Problems (1) Acute on chronic systolic (congestive) heart failure Code(s): I50.23 - ACUTE ON CHRONIC SYSTOLIC (CONGESTIVE) HEART FAILURE (2) COPD (chronic obstructive pulmonary disease) Code(s): J44.9 - CHRONIC OBSTRUCTIVE PULMONARY DISEASE, UNSPECIFIED Qualifiers: COPD type: unspecified COPD Qualified Code(s): J44.9 - Chronic obstructive pulmonary disease, unspecified (3) Diabetes Code(s): E11.9 - TYPE 2 DIABETES MELLITUS WITHOUT COMPLICATIONS Qualifiers: Diabetes mellitus type: type 2 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: with long-term use Diabetes mellitus complication status: with unspecified complications Qualified Code(s): E11.8 - Type 2 diabetes mellitus with unspecified complications; Z79.4 - senior care (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 of insulin (4) HTN (hypertension) Code(s): I10 - ESSENTIAL (PRIMARY) HYPERTENSION Qualifiers: Hypertension type: essential hypertension Qualified Code(s): I10 - Essential (primary) hypertension 5 PNEUMONIA Assessment/Plan Acute on Chronic Systolic Heart Failure +Troponins Chronic Hypoxic Respiratory Failure COPD HTN DM HEMOPTYSIS improved PNEUMONIA - IV lasix - monitor urine output, creatinine - ABX - daily weights - O2 to keep Spo2 >90% - inhaled bronchodilators as needed - DVT prophylaxis - quantify hemoptysis DR LOMELI
[2018-11-14] MEDS ORDERED: DEXTROSE 5%-WATER - 50 ML IVPB ONE ×2 (14:16→23:55)
[2018-11-14] MEDS ORDERED: PIPERACILLIN/TAZOBACTAM 3.375 GM VIAL IVPB ONE ×2 (14:16→23:55)
[2018-11-14] MEDS: guaiFENesin/CODEINE 5 ML UNIT-DOSE CUPS PO PRN ×2 (14:24→22:31)
[2018-11-14] MEDS: PIPERACILLIN/TAZOB 3.375 GM 3.375 GM in DEXTROSE 5%-WATER - 50 ML IVPB SCH ×2 (14:25→17:03)
--- NOTE | 2018-11-14 15:34 | PN ---
Progress Note (short form) - Note Progress Note: ID consult dictated imp/reccd 58 yo female admitted with lower extremity edema and SOB pmh of COPD on home oxygen, CHF- ef approx 25%, IDDM multiple recent admissions treated for CHF with diuretics
--- NOTE | 2018-11-14 15:44 | PN ---
Progress Note (short form) - Note Progress Note: ID consult dictated imp/reccd 58 yo female admitted with lower extremity edema and SOB pmh of COPD on home oxygen, CHF- ef approx 25%, DM multiple recent admissions treated for CHF with diuretics yesterday noted to be more congested, temp 100.4, hemoptysis had chest CTA that showed MICKEY and LLL infiltrate asked to see for pneumonia hospital day #7 plan to treat for hospital acquired pneumonia obtain blood cultures sputum cultures urinary antigens continue zosyn history of CHF with poor EF history of copd on home oxygen history of IDDM Problem List - Problems (1) Pneumonia Code(s): J18.9 - PNEUMONIA, UNSPECIFIED ORGANISM (2) CHF exacerbation Code(s): I50.9 - HEART FAILURE, UNSPECIFIED Qualifiers: Heart failure type: unspecified Qualified Code(s): I50.9 - Heart failure, unspecified (3) COPD (chronic obstructive pulmonary disease) Code(s): J44.9 - CHRONIC OBSTRUCTIVE PULMONARY DISEASE, UNSPECIFIED Qualifiers: COPD type: unspecified COPD Qualified Code(s): J44.9 - Chronic obstructive pulmonary disease, unspecified (4) Diabetes Code(s): E11.9 - TYPE 2 DIABETES MELLITUS WITHOUT COMPLICATIONS Qualifiers: Diabetes mellitus type: type 2 Diabetes mellitus [facility]iary insulin use: with [facility] use Diabetes mellitus complication status: with unspecified complications Qualified Code(s): E11.8 - Type 2 diabetes mellitus with unspecified complications; 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
--- NOTE | 2018-11-14 18:02 | CONS ---
DATE OF CONSULTATION: DATE OF DICTATION: 11/14/2018 CONSULTATION REQUESTED BY: Andres Paredes MD HISTORY OF PRESENT ILLNESS: The patient is a 58-year-old woman admitted on November 07, 2018 with lower extremity edema and shortness of breath. She has a past medical history of COPD on home oxygen, congestive heart failure with an ejection fraction of approximately 25% and diabetes. She has had multiple admissions to [facility] this past year - two in September and one in October. She was here about two weeks ago. She was admitted this time with lower extremity edema and shortness of breath. No fevers. She was treated for CHF with diuretics. She was continued on her inhaler treatments. Yesterday, she was noted to be more congested, had a temperature of 100.4 and had hemoptysis. She was placed on prednisone. She had a chest CTA that showed no PE but showed left upper lobe and left lower lobe infiltrates. I was asked to see her for possible pneumonia. She had a chest CT on October 22, 2018 that showed right-sided infiltrates. This is now hospital day no. 7. She is currently resting comfortably. Her hemoptysis has resolved. She continues to have yellow sputum production. She says that her breathing continues to be labored and that she continues to have edema of her legs. PAST MEDICAL HISTORY: Notable for CHF, hypertension, hyperlipidemia, asthma, COPD (oxygen dependent), GERD, renal insufficiency and diabetes. She was treated in July for one month with vancomycin for MRSA bacteremia. SOCIAL HISTORY: She lives with her daughter. She is originally from [place]. There is no history of any substance abuse. She has never smoked. REVIEW OF SYSTEMS: She denies diarrhea or vomiting. ALLERGIES: No known drug allergies. HOME MEDICATIONS: Atorvastatin, Singulair, Nexium, Levemir insulin, MiraLAX, senna, Ventolin nebulizer, DuoNebs, Coreg, furosemide, losartan, Mirapex, prednisone 10 mg, Aldactone and Topamax. PHYSICAL EXAMINATION: General: She is awake and alert. Vital Signs: Temperature 97.7, pulse 83, blood pressure 128/84, respiratory rate 20. HEENT: Normocephalic. Her eyes are anicteric. She has no thrush. She has good dentition. Lungs: Clear with bilateral rhonchi and wheezes. Heart: Regular rate and rhythm. Abdomen: Soft, nontender. Extremities: Notable for 1+ edema. LABORATORY DATA: White count is 5.8, hemoglobin is 13.7, platelets are 203. INR is 1. BUN is 15, creatinine is 0.7. Blood culture is pending. A chest CTA done yesterday shows patchy consolidation in the left upper lobe and left lower lobe suspicious for pneumonia. She had a previous CTA done on October 22 that showed a left basilar atelectasis. Looking at the two CT scans, this looks like a new process. In summary, this is a 58-year-old woman with CT evidence of pneumonia of her left lung that appears new since her prior admission. Would plan to treat for hospital-acquired pneumonia with piperacillin and tazobactam. Would obtain blood culture. Would obtain sputum culture as she has a productive cough. Would obtain urinary antigens. Would continue Zosyn at this time. She has a history of heart failure with poor ejection fraction, a history of chronic obstructive pulmonary disease on home oxygen and a history of diabetes. Further recommendations will follow. Christian [id number]
--- NOTE | 2018-11-14 18:54 | HOSP ---
Physical Examination Vital Signs: Vital Signs Temperature 97.7 F 11/14/18 14:38 Pulse Rate 83 11/14/18 14:38 Respiratory Rate 22 H 11/14/18 14:38 Blood Pressure 128/84 11/14/18 14:38 O2 Sat by Pulse Oximetry (%) 96 11/13/18 21:00 Labs: CBC, BMP 11/14/18 05:30 11/14/18 05:30 Hospitalist Encounter Assessment: Asked to evaluate patient for persistent headaches. Per patient, she has had ongoing headaches for 12 days following a fall where she hit her head on a window. She states that the pain is relieved by Tylenol, but keeps returning. She is concerned that there may be an injury from the fall. PE: Alert, oriented, no distress. PERRL, EOMI. No scalp crepitus, some tenderness in right parietal and occipital regions. No midline cervical vertebral tenderness. Normal speech and gait, no focal neurologic deficits. Will obtain CT brain.
[2018-11-14] MEDS: PRAMIPEXOLE DIHYDROCHLORIDE 0.25 MG TABLET PO SCH (22:31)
[2018-11-14] MEDS: ATORVASTATIN CA 10 MG TABLET (FP) PO SCH (22:32)
[2018-11-15] MEDS: PIPERACILLIN/TAZOB 3.375 GM 3.375 GM in DEXTROSE 5%-WATER - 50 ML IVPB SCH ×3 (01:45→18:31)
[2018-11-15] MEDS: FUROSEMIDE 40 MG/4 ML INJECTABLE VIAL IVPUSH SCH ×2 (05:53→15:00)
[2018-11-15] MEDS: guaiFENesin/CODEINE 5 ML UNIT-DOSE CUPS PO PRN ×3 (05:53→23:56)
[2018-11-15] MEDS: ALBUTEROL SO4 0.083% IH SOL 2.5 MG/3 ML VIAL.NEB. NEB PRN ×2 (06:20→22:42)
[2018-11-15] MEDS: INSULIN (LEVEMIR) 100 UNITS/ML UNITS SQ SCH ×2 (06:40→22:10)
[2018-11-15] MEDS: INSULIN SLIDING SCALE (NOVOLOG) 1 VIAL SQ SCH ×4 (06:41→22:18)
[2018-11-15 07:25] LABS: ALBUMIN 2.6 g/dl (3.4-5.0); ALK PHOS 222 U/L (45-117); ANION GAP 8 MMOL/L (8-16); BILIRUBIN,TOTAL 0.3 mg/dL (0.2-1); BLOOD UREA NITROGEN 21 mg/dL (7-18); CALCIUM 8.1 mg/dL (8.5-10.1); CHLORIDE 101 mmol/L (98-107); CO2 29 mmol/L (21-32); CREATININE 1.3 mg/dL (0.55-1.3); POTASSIUM 4.2 mmol/L (3.5-5.1); SGOT/AST 12 U/L (15-37); SGPT/ALT 29 U/L (13-61); SODIUM 138 mmol/L (136-145); TOT PROT 6.4 g/dl (6.4-8.2)
[2018-11-15 07:26] LABS: BASO % 0.4 % (0-2.0); EOS % 0.1 % (0-4.5); HEMATOCRIT 41.8 % (32.4-45.2); HEMOGLOBIN 13.5 GM/dL (10.7-15.3); LYMPH % 9.7 % (8-40); MCH 29.6 pg (25.7-33.7); MCHC 32.3 g/dl (32.0-36.0); MEAN CELL VOLUME 91.7 fl (80-96); MEAN PLT VOLUME 8.3 fl (7.5-11.1); MONO % 9.9 % (3.8-10.2); NEUT % 79.9 % (42.8-82.8); PLATELET COUNT 241 K/MM3 (134-434); RBC 4.56 M/mm3 (3.60-5.2); RDW 17.6 % (11.6-15.6)
[2018-11-15 07:35] LABS: GLUCOSE,RANDOM 442 mg/dL (74-106)
[2018-11-15] MEDS: ALBUTEROL SO4 2.5/IPRATROPIUM 0.5 INH SOL 3 ML VIAL.NEB. NEB SCH ×2 (08:10→11:25)
[2018-11-15] MEDS ORDERED: PIPERACILLIN/TAZOBACTAM 3.375 GM VIAL IVPB ONE ×2 (10:18→18:13)
[2018-11-15] MEDS ORDERED: DEXTROSE 5%-WATER - 50 ML IVPB ONE ×2 (10:18→18:13)
[2018-11-15] MEDS: CARVEDILOL 25 MG TABLET (FP) PO SCH ×2 (10:33→22:08)
[2018-11-15] MEDS: TOPIRAMATE 25 MG TABLET (FP) PO SCH ×2 (10:33→22:10)
[2018-11-15] MEDS: predniSONE 20 MG TABLET (UD) PO SCH (10:34)
[2018-11-15] MEDS: LOSARTAN POTASSIUM 50 MG TABLET (FP) PO SCH (10:34)
[2018-11-15] MEDS: NICOTINE 7 MG/24 HOURS TOPICAL PATCH TD SCH (10:34)
[2018-11-15] MEDS: ASPIRIN COATED 81 MG TABLET.EC PO SCH (10:34)
[2018-11-15] MEDS: ISOSORBIDE MONONITRATE 30 MG TAB.SR.24H (FP) PO SCH (10:34)
[2018-11-15] MEDS: SPIRONOLACTONE 25 MG TABLET (FP) PO SCH (10:35)
[2018-11-15] MEDS: HEPARIN NA (PORCINE) 5,000 UNITS/ML 1ML VIAL SQ SCH ×2 (10:36→22:09)
[2018-11-15] MEDS ORDERED: INSULIN (NOVOLOG) ASPART 100 UNITS/ML 10ML VIAL ONE (11:34)
[2018-11-15] MEDS: POLYETHYLENE GLYCOL 3350 119 GM BTL PO SCH (11:44)
--- NOTE | 2018-11-15 14:46 | PN ---
Progress Note, Physician Chief Complaint: patient seen and examined ct head was done for headache - Current Medication List Current Medications: Active Medications Acetaminophen (Tylenol -) 650 mg PO Q4H PRN PRN Reason: HEADACHE Last Admin: 11/14/18 10:15 Dose: 650 mg Albuterol Sulfate (Ventolin 0.083% Nebulizer Soln -) 1 amp NEB Q6H PRN PRN Reason: SHORT OF BREATH/WHEEZING Last Admin: 11/15/18 06:20 Dose: 1 amp Albuterol/Ipratropium (Duoneb -) 1 amp NEB RQID [facility] Last Admin: 11/15/18 11:25 Dose: 1 amp Aspirin (Ecotrin -) 81 mg PO DAILY [facility] Last Admin: 11/15/18 10:34 Dose: 81 mg Atorvastatin Calcium (Lipitor -) 10 mg PO HS [facility] Last Admin: 11/14/18 22:32 Dose: 10 mg Carvedilol (Coreg -) 25 mg PO BID [facility] Last Admin: 11/15/18 10:33 Dose: 25 mg Furosemide (Lasix Injection -) 60 mg IVPUSH BID@0600,1400 [facility] Last Admin: 11/15/18 05:53 Dose: 60 mg Guaifenesin/Codeine Phosphate (Robitussin Ac -) 5 ml PO TID PRN PRN Reason: COUGH Last Admin: 11/15/18 05:53 Dose: 5 ml Heparin Sodium (Porcine) (Heparin -) 5,000 unit SQ BID [facility] Last Admin: 11/15/18 10:36 Dose: 5,000 unit Piperacillin Sod/Tazobactam (Sod 3.375 gm/ Dextrose) 50 mls @ 100 mls/hr IVPB Q8H-IV [facility]; Protocol Insulin Aspart (Novolog Vial Sliding Scale -) 1 vial SQ ACHS [facility]; Protocol Last Admin: 11/15/18 11:44 Dose: 6 units Insulin Detemir (Levemir Vial) 35 units SQ DAILY@0700 [facility] Last Admin: 11/15/18 06:40 Dose: 35 units Insulin Detemir (Levemir Vial) 15 units SQ HS [facility] Last Admin: 11/14/18 22:32 Dose: 15 unit Isosorbide Mononitrate (Imdur -) 30 mg PO DAILY [facility] Last Admin: 11/15/18 10:34 Dose: 30 mg Losartan Potassium (Cozaar -) 50 mg PO DAILY [facility] Last Admin: 11/15/18 10:34 Dose: 50 mg Nicotine (Nicoderm Patch -) 7 mg TD DAILY [facility] Last Admin: 11/15/18 10:34 Dose: 7 mg Ondansetron HCl (Zofran Odt -) 4 mg SL Q6H PRN PRN Reason: NAUSEA AND/OR VOMITING Polyethylene Glycol (Miralax (For Daily Use) -) 17 gm PO DAILY [facility] Last Admin: 11/15/18 11:44 Dose: Not Given Pramipexole Dihydrochloride (Mirapex -) 0.25 mg PO HS [facility] Last Admin: 11/14/18 22:31 Dose: 0.25 mg Prednisone (Deltasone -) 40 mg PO DAILY [facility] Last Admin: 11/15/18 10:34 Dose: 40 mg Spironolactone (Aldactone -) 25 mg PO DAILY [facility] Last Admin: 11/15/18 10:35 Dose: 25 mg Topiramate (Topamax -) 25 mg PO BID [facility] Last Admin: 11/15/18 10:33 Dose: 25 mg - Objective Vital Signs: Vital Signs Temperature 97.4 F L 11/15/18 14:32 Pulse Rate 84 11/15/18 14:32 Respiratory Rate 22 H 11/15/18 14:32 Blood Pressure 115/68 11/15/18 14:32 O2 Sat by Pulse Oximetry (%) 91 L 11/14/18 10:00 Constitutional: Yes: Calm Cardiovascular: Yes: Regular Rate and Rhythm, S1, S2 Respiratory: Yes: CTA Bilaterally Gastrointestinal: Yes: Normal Bowel Sounds, Soft Edema: Yes (much reduced) Neurological: Yes: Alert, Oriented Labs: CBC, BMP 11/15/18 06:30 11/15/18 06:30 INR, PTT INR 1.10 (0.83-1.09) H 11/07/18 13:08 Problem List - Problems (1) Headache Assessment/Plan: ct head done no acute pathology neurology eval Code(s): R51 - HEADACHE (2) CHF (congestive heart failure) Assessment/Plan: echo done severly reduced systolic function and global hypokinesis iv 40mg lasix BID inc to 60mg iv bid- daily weight- coreg 25mg bid cozaar aldactone Code(s): I50.9 - HEART FAILURE, UNSPECIFIED (3) Abnormal liver enzymes Assessment/Plan: secondary to hepatic congestion lft is trending down Code(s): R74.8 - ABNORMAL LEVELS OF OTHER SERUM ENZYMES (4) Diabetes Assessment/Plan: sliding scale insulin dose increased per endocrine hgba1c 11.1 Code(s): E11.9 - TYPE 2 DIABETES MELLITUS WITHOUT COMPLICATIONS Qualifiers: Diabetes mellitus type: type 2 Diabetes mellitus longterm insulin use: with longterm use Diabetes mellitus complication status: with unspecified complications Qualified Code(s): E11.8 - Type 2 diabetes mellitus with unspecified complications; Z79.4 - director hair (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 of insulin (5) COPD (chronic obstructive pulmonary disease) Assessment/Plan: oxygen and bronchodilators no need for steroids Code(s): J44.9 - CHRONIC OBSTRUCTIVE PULMONARY DISEASE, UNSPECIFIED Qualifiers: COPD type: unspecified COPD Qualified Code(s): J44.9 - Chronic obstructive pulmonary disease, unspecified
[2018-11-15] MEDS ORDERED: SUMAtriptan SUCCINATE 50 MG TABLET PO PRN (18:23)
--- NOTE | 2018-11-15 18:26 | CONSULT ---
Consult - text type - Consultation Consultation Note: NEUROLOGY PROGRESS: Events reviewed and discussed with Cherie and TREVA Higginbotham. (?) at bedside aiding in translation. Last seen by me in consultation for similar complaints. This 58 yo woman is disabled, currently living in a senior living. Her pmhx includes COPD, CHF, HTN, HLD, IDDM. H/O migraine headaches and Restless limb syndrome currently on carvedilol 25 mg BID, topiramate 25 mg BID and pramipexole 0.25 mg qhs. She does not have a primary care doctor and goes to the hospital for all concerns, initially reporting chest pains with unremarkable workup. She admits that she stopped pramipexole 0.25 mg at home after a few days due to nausea and vomiting, however compliance is uncertain. Still with reports of 1-2 headaches per week of similar nature and associated symptoms. Currently using tylenol with some relief. She continues to report nocturnal "cramps" in the low back and R knee, more recently involving the L shoulder, improved with movement. States she plans to have L shoulder surgery sometime this year with a surgeon in [place]. Head CT (reviewed): Subcortical and periventricular ischemic changes c/w migraine BS= 400-500 mg% ALEKSANDR: BP 120/80s. Mod. Obese. Cor reg. No bruit. Neg SLR. Neck supple. Normal shoulder mechanics. 2+ pitting edema to legs. NEURO Awake, alert oriented x 3. Cooperative with exam. EOM intact and full medrano appreciated No drift. Strength normal throughout. Reflexes normal. Toes downgoing. No FTN dystaxia. Romberg - Min reduced vibration feet Normal stride. Able to walk on toes, heels without difficulty. Impression: Normal neurological exam Migraine Headaches Restless Limb Syndrome (RLS). Peripheral Neuropathy (c/w diabetes) Suggest: Continue Carvedilol to 25 mg BID for migraine prophylaxis Increase Topiramate to 50 mg BID (note on Isosorbide 30 mg daily, which may WORSEN headaches) For breakthrough headache, try sumatriptan 100 mg prn Resume Pramipexole 0.25 mg po QHS with plan to increase to 0.25 mg BID (observe for GI AE's) Bariatric Surgery consult Thank you very much. Johnny Crowell MD
[2018-11-15] MEDS ORDERED: PT OWN MED DRAWER 7, Y5N ONE (22:07)
[2018-11-15] MEDS: ACETAMINOPHEN 325 MG TABLET (FP) PO PRN (22:08)
[2018-11-15] MEDS: ATORVASTATIN CA 10 MG TABLET (FP) PO SCH (22:08)
[2018-11-15] MEDS: PRAMIPEXOLE DIHYDROCHLORIDE 0.25 MG TABLET PO SCH (22:08)
[2018-11-16] MEDS ORDERED: PIPERACILLIN/TAZOBACTAM 3.375 GM VIAL IVPB ONE ×2 (02:12→09:34)
[2018-11-16] MEDS ORDERED: DEXTROSE 5%-WATER - 50 ML IVPB ONE ×3 (02:12→14:51)
[2018-11-16] MEDS: PIPERACILLIN/TAZOB 3.375 GM 3.375 GM in DEXTROSE 5%-WATER - 50 ML IVPB SCH ×2 (02:14→09:39)
[2018-11-16] MEDS: FUROSEMIDE 40 MG/4 ML INJECTABLE VIAL IVPUSH SCH ×2 (05:44→15:52)
[2018-11-16] MEDS: INSULIN SLIDING SCALE (NOVOLOG) 1 VIAL SQ SCH ×4 (06:20→22:15)
[2018-11-16] MEDS: INSULIN (LEVEMIR) 100 UNITS/ML UNITS SQ SCH ×2 (06:21→22:14)
[2018-11-16] MEDS: ALBUTEROL SO4 2.5/IPRATROPIUM 0.5 INH SOL 3 ML VIAL.NEB. NEB SCH ×4 (07:45→19:40)
[2018-11-16 07:56] LABS: ALBUMIN 2.5 g/dl (3.4-5.0); ALK PHOS 227 U/L (45-117); ANION GAP 6 MMOL/L (8-16); BILIRUBIN,TOTAL 0.2 mg/dL (0.2-1); BLOOD UREA NITROGEN 25 mg/dL (7-18); CHLORIDE 98 mmol/L (98-107); CO2 32 mmol/L (21-32); CREATININE 1.3 mg/dL (0.55-1.3); SGOT/AST 12 U/L (15-37); SGPT/ALT 24 U/L (13-61); SODIUM 136 mmol/L (136-145); TOT PROT 6.1 g/dl (6.4-8.2)
[2018-11-16 08:06] LABS: BASO % 0.4 % (0-2.0); EOS % 0.2 % (0-4.5); HEMATOCRIT 39.7 % (32.4-45.2); HEMOGLOBIN 12.9 GM/dL (10.7-15.3); LYMPH % 11.2 % (8-40); MCH 29.8 pg (25.7-33.7); MCHC 32.5 g/dl (32.0-36.0); MEAN CELL VOLUME 91.8 fl (80-96); MEAN PLT VOLUME 8.5 fl (7.5-11.1); MONO % 8.1 % (3.8-10.2); NEUT % 80.1 % (42.8-82.8); PLATELET COUNT 252 K/MM3 (134-434); RBC 4.32 M/mm3 (3.60-5.2); RDW 17.9 % (11.6-15.6); WHITE BLOOD COUNT 7.4 K/mm3 (4.0-10.0)
[2018-11-16 08:30] LABS: GLUCOSE,RANDOM 488 mg/dL (74-106)
[2018-11-16] MEDS ORDERED: PT OWN MED DRAWER 7, Y5N ONE ×2 (09:34→22:43)
[2018-11-16] MEDS: ASPIRIN COATED 81 MG TABLET.EC PO SCH (09:38)
[2018-11-16] MEDS: TOPIRAMATE 25 MG TABLET (FP) PO SCH ×2 (09:38→22:16)
[2018-11-16] MEDS: ISOSORBIDE MONONITRATE 30 MG TAB.SR.24H (FP) PO SCH (09:38)
[2018-11-16] MEDS: CARVEDILOL 25 MG TABLET (FP) PO SCH ×2 (09:38→22:16)
[2018-11-16] MEDS: HEPARIN NA (PORCINE) 5,000 UNITS/ML 1ML VIAL SQ SCH ×2 (09:38→22:16)
[2018-11-16] MEDS: predniSONE 20 MG TABLET (UD) PO SCH (09:38)
[2018-11-16] MEDS: LOSARTAN POTASSIUM 50 MG TABLET (FP) PO SCH (09:38)
[2018-11-16] MEDS: NICOTINE 7 MG/24 HOURS TOPICAL PATCH TD SCH (09:38)
[2018-11-16] MEDS: POLYETHYLENE GLYCOL 3350 119 GM BTL PO SCH (09:39)
[2018-11-16] MEDS: SPIRONOLACTONE 25 MG TABLET (FP) PO SCH (09:39)
--- NOTE | 2018-11-16 12:25 | PN ---
Progress Note, Physician History of Present Illness: pulmonary alert,feeling better,less dyspneic,+ occ cough,-cp - Current Medication List Current Medications: Active Medications Acetaminophen (Tylenol -) 650 mg PO Q4H PRN PRN Reason: PAIN 1-3 Last Admin: 11/15/18 22:08 Dose: 650 mg Albuterol Sulfate (Ventolin 0.083% Nebulizer Soln -) 1 amp NEB Q6H PRN PRN Reason: SHORT OF BREATH/WHEEZING Last Admin: 11/15/18 22:42 Dose: 1 amp Albuterol/Ipratropium (Duoneb -) 1 amp NEB RQID [facility] Last Admin: 11/16/18 07:45 Dose: 1 amp Aspirin (Ecotrin -) 81 mg PO DAILY [facility] Last Admin: 11/16/18 09:38 Dose: 81 mg Atorvastatin Calcium (Lipitor -) 10 mg PO HS [facility] Last Admin: 11/15/18 22:08 Dose: 10 mg Carvedilol (Coreg -) 25 mg PO BID [facility] Last Admin: 11/16/18 09:38 Dose: 25 mg Furosemide (Lasix Injection -) 60 mg IVPUSH BID@0600,1400 [facility] Last Admin: 11/16/18 05:44 Dose: 60 mg Guaifenesin/Codeine Phosphate (Robitussin Ac -) 5 ml PO TID PRN PRN Reason: COUGH Last Admin: 11/15/18 23:56 Dose: 5 ml Heparin Sodium (Porcine) (Heparin -) 5,000 unit SQ BID [facility] Last Admin: 11/16/18 09:38 Dose: 5,000 unit Piperacillin Sod/Tazobactam (Sod 3.375 gm/ Dextrose) 50 mls @ 100 mls/hr IVPB Q8H-IV [facility]; Protocol Last Admin: 11/16/18 09:39 Dose: 100 mls/hr Insulin Aspart (Novolog Vial Sliding Scale -) 1 vial SQ ACHS [facility]; Protocol Last Admin: 11/16/18 12:04 Dose: 8 units Insulin Detemir (Levemir Vial) 35 units SQ DAILY@0700 [facility] Last Admin: 11/16/18 06:21 Dose: 35 units Insulin Detemir (Levemir Vial) 15 units SQ HS [facility] Last Admin: 11/15/18 22:10 Dose: 15 unit Isosorbide Mononitrate (Imdur -) 30 mg PO DAILY [facility] Last Admin: 11/16/18 09:38 Dose: 30 mg Losartan Potassium (Cozaar -) 50 mg PO DAILY [facility] Last Admin: 11/16/18 09:38 Dose: 50 mg Nicotine (Nicoderm Patch -) 7 mg TD DAILY [facility] Last Admin: 11/16/18 09:38 Dose: 7 mg Ondansetron HCl (Zofran Odt -) 4 mg SL Q6H PRN PRN Reason: NAUSEA AND/OR VOMITING Polyethylene Glycol (Miralax (For Daily Use) -) 17 gm PO DAILY [facility] Last Admin: 11/16/18 09:39 Dose: Not Given Pramipexole Dihydrochloride (Mirapex -) 0.25 mg PO HS [facility] Last Admin: 11/15/18 22:08 Dose: 0.25 mg Prednisone (Deltasone -) 40 mg PO DAILY [facility] Last Admin: 11/16/18 09:38 Dose: 40 mg Spironolactone (Aldactone -) 25 mg PO DAILY [facility] Last Admin: 11/16/18 09:39 Dose: 25 mg Sumatriptan Succinate (Imitrex -) 100 mg PO ONCE PRN PRN Reason: HEADACHE Topiramate (Topamax -) 50 mg PO BID [facility] Last Admin: 11/16/18 09:38 Dose: 50 mg - Objective Vital Signs: Vital Signs Temperature 97.4 F L 11/16/18 05:00 Pulse Rate 83 11/16/18 05:00 Respiratory Rate 22 H 11/16/18 05:00 Blood Pressure 160/84 11/16/18 05:00 O2 Sat by Pulse Oximetry (%) 97 11/15/18 21:00 Constitutional: Yes: Well Nourished, Calm Eyes: Yes: WNL HENT: Yes: WNL Neck: Yes: WNL Cardiovascular: Yes: Regular Rate and Rhythm, S1, S2 Respiratory: Yes: Rales, Rhonchi (vivi crakles and rhonchi) Gastrointestinal: Yes: Normal Bowel Sounds, Soft Extremities: Yes: WNL Edema: No Labs: CBC, BMP 11/16/18 06:30 11/16/18 06:30 INR, PTT Problem List - Problems (1) Chronic hypoxemic respiratory failure Code(s): J96.11 - CHRONIC RESPIRATORY FAILURE WITH HYPOXIA Assessment/Plan Problem List - Problems (1) Acute on chronic systolic (congestive) heart failure Code(s): I50.23 - ACUTE ON CHRONIC SYSTOLIC (CONGESTIVE) HEART FAILURE (2) COPD (chronic obstructive pulmonary disease) Code(s): J44.9 - CHRONIC OBSTRUCTIVE PULMONARY DISEASE, UNSPECIFIED Qualifiers: COPD type: unspecified COPD Qualified Code(s): J44.9 - Chronic obstructive pulmonary disease, unspecified (3) Diabetes Code(s): E11.9 - TYPE 2 DIABETES MELLITUS WITHOUT COMPLICATIONS Qualifiers: Diabetes mellitus type: type 2 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 Diabetes mellitus complication status: with unspecified complications Qualified Code(s): E11.8 - Type 2 diabetes mellitus with unspecified complications; Z79.4 - bottom cementer (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 of insulin (4) HTN (hypertension) Code(s): I10 - ESSENTIAL (PRIMARY) HYPERTENSION Qualifiers: Hypertension type: essential hypertension Qualified Code(s): I10 - Essential (primary) hypertension 5 PNEUMONIA Assessment/Plan Acute on Chronic Systolic Heart Failure +Troponins Chronic Hypoxic Respiratory Failure COPD HTN DM HEMOPTYSIS improved PNEUMONIA - IV lasix - monitor urine output, creatinine - ABX - daily weights - O2 to keep Spo2 >90% - inhaled bronchodilators as needed - DVT prophylaxis DR LOMELI
--- NOTE | 2018-11-16 14:16 | PN ---
Progress Note (short form) - Note Progress Note: clinically improving much less sob Vital Signs Period Temp Pulse Resp BP Sys/Plasencia Pulse Ox Last 24 Hr 97.4 F-99.0 F 83-96 17-24 115-160/68-98 97-98 cor-rrr lungs decreased bs at bases abd soft,nt ext bilateral pitting edema CBC, BMP 11/16/18 06:30 11/16/18 06:30 Microbiology 11/14/18 18:30 Sputum - Expectorated Gram Stain - Final 11/14/18 18:30 Sputum - Expectorated Sputum Culture - Preliminary NORMAL RESPIRATORY WILLAM 11/14/18 18:00 Blood - Peripheral Venous Blood Culture - Preliminary NO GROWTH OBTAINED AFTER 24 HOURS, INCUBATION TO CONTINUE FOR 4 DAYS. 11/14/18 15:50 Blood - Peripheral Venous Blood Culture - Preliminary NO GROWTH OBTAINED AFTER 24 HOURS, INCUBATION TO CONTINUE FOR 4 DAYS. 11/14/18 23:15 Urine For Antigen Detection Legionella Antigen - Final 11/14/18 23:15 Urine For Antigen Detection Streptococcus pneumoniae Antigen (M - Final imp/reccd 58 yo female admitted with lower extremity edema and SOB hospital day #[address] c/w pneumonia- day 3 zosyn, switch to ceftriaxone, po augmentin when ready for discharge history of CHF with poor EF-on iv laix history of copd on home oxygen history of IDDM please call back if needed Problem List - Problems (1) Pneumonia Code(s): J18.9 - PNEUMONIA, UNSPECIFIED ORGANISM (2) CHF exacerbation Code(s): I50.9 - HEART FAILURE, UNSPECIFIED Qualifiers: Heart failure type: unspecified Qualified Code(s): I50.9 - Heart failure, unspecified (3) COPD (chronic obstructive pulmonary disease) Code(s): J44.9 - CHRONIC OBSTRUCTIVE PULMONARY DISEASE, UNSPECIFIED Qualifiers: COPD type: unspecified COPD Qualified Code(s): J44.9 - Chronic obstructive pulmonary disease, unspecified (4) Diabetes Code(s): E11.9 - TYPE 2 DIABETES MELLITUS WITHOUT COMPLICATIONS Qualifiers: Diabetes mellitus 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
[2018-11-16] MEDS ORDERED: cefTRIAXone SODIUM 1 GM VIAL ONE (14:51)
[2018-11-16] MEDS: CEFTRIAXONE 1 GM in DEXTROSE 5%-WATER - 50 ML IVPB SCH (14:59)
--- NOTE | 2018-11-16 15:07 | PN ---
Progress Note, Physician Chief Complaint: seen and examiend in chair leg swelling improving - Current Medication List Current Medications: Active Medications Acetaminophen (Tylenol -) 650 mg PO Q4H PRN PRN Reason: PAIN 1-3 Last Admin: 11/15/18 22:08 Dose: 650 mg Albuterol Sulfate (Ventolin 0.083% Nebulizer Soln -) 1 amp NEB Q6H PRN PRN Reason: SHORT OF BREATH/WHEEZING Last Admin: 11/15/18 22:42 Dose: 1 amp Albuterol/Ipratropium (Duoneb -) 1 amp NEB RQID [facility] Last Admin: 11/16/18 11:40 Dose: 1 amp Aspirin (Ecotrin -) 81 mg PO DAILY [facility] Last Admin: 11/16/18 09:38 Dose: 81 mg Atorvastatin Calcium (Lipitor -) 10 mg PO HS [facility] Last Admin: 11/15/18 22:08 Dose: 10 mg Carvedilol (Coreg -) 25 mg PO BID [facility] Last Admin: 11/16/18 09:38 Dose: 25 mg Furosemide (Lasix Injection -) 60 mg IVPUSH BID@0600,1400 [facility] Last Admin: 11/16/18 05:44 Dose: 60 mg Guaifenesin/Codeine Phosphate (Robitussin Ac -) 5 ml PO TID PRN PRN Reason: COUGH Last Admin: 11/15/18 23:56 Dose: 5 ml Heparin Sodium (Porcine) (Heparin -) 5,000 unit SQ BID [facility] Last Admin: 11/16/18 09:38 Dose: 5,000 unit Ceftriaxone Sodium 1 gm/ (Dextrose) 50 mls @ 100 mls/hr IVPB DAILY [facility]; Protocol Insulin Aspart (Novolog Vial Sliding Scale -) 1 vial SQ ACHS [facility]; Protocol Last Admin: 11/16/18 12:04 Dose: 8 units Insulin Detemir (Levemir Vial) 35 units SQ DAILY@0700 [facility] Last Admin: 11/16/18 06:21 Dose: 35 units Insulin Detemir (Levemir Vial) 15 units SQ HS [facility] Last Admin: 11/15/18 22:10 Dose: 15 unit Isosorbide Mononitrate (Imdur -) 30 mg PO DAILY [facility] Last Admin: 11/16/18 09:38 Dose: 30 mg Losartan Potassium (Cozaar -) 50 mg PO DAILY [facility] Last Admin: 11/16/18 09:38 Dose: 50 mg Nicotine (Nicoderm Patch -) 7 mg TD DAILY [facility] Last Admin: 11/16/18 09:38 Dose: 7 mg Ondansetron HCl (Zofran Odt -) 4 mg SL Q6H PRN PRN Reason: NAUSEA AND/OR VOMITING Polyethylene Glycol (Miralax (For Daily Use) -) 17 gm PO DAILY [facility] Last Admin: 11/16/18 09:39 Dose: Not Given Pramipexole Dihydrochloride (Mirapex -) 0.25 mg PO HS [facility] Last Admin: 11/15/18 22:08 Dose: 0.25 mg Prednisone (Deltasone -) 40 mg PO DAILY [facility] Last Admin: 11/16/18 09:38 Dose: 40 mg Spironolactone (Aldactone -) 25 mg PO DAILY [facility] Last Admin: 11/16/18 09:39 Dose: 25 mg Sumatriptan Succinate (Imitrex -) 100 mg PO ONCE PRN PRN Reason: HEADACHE Topiramate (Topamax -) 50 mg PO BID [facility] Last Admin: 11/16/18 09:38 Dose: 50 mg - Objective Vital Signs: Vital Signs Temperature 97.4 F L 11/16/18 05:00 Pulse Rate 92 H 11/16/18 10:00 Respiratory Rate 18 11/16/18 10:00 Blood Pressure 146/98 11/16/18 10:00 O2 Sat by Pulse Oximetry (%) 98 11/16/18 09:00 Constitutional: Yes: Calm Cardiovascular: Yes: Regular Rate and Rhythm, S1, S2 Respiratory: Yes: CTA Bilaterally Gastrointestinal: Yes: Normal Bowel Sounds, Soft Edema: Yes (improving) Neurological: Yes: Alert, Oriented Labs: CBC, BMP 11/16/18 06:30 11/16/18 06:30 INR, PTT INR 1.10 (0.83-1.09) H 11/07/18 13:08 Problem List - Problems (1) Headache Assessment/Plan: ct head done no acute pathology neurology eval noted topiramate and coreg and mirapex resumed for RLS Code(s): R51 - HEADACHE (2) CHF (congestive heart failure) Assessment/Plan: echo done severly reduced systolic function and global hypokinesis iv 40mg lasix BID inc to 60mg iv bid- daily weight- coreg 25mg bid cozaar aldactone Code(s): I50.9 - HEART FAILURE, UNSPECIFIED (3) Abnormal liver enzymes Assessment/Plan: secondary to hepatic congestion lft is trending down Code(s): R74.8 - ABNORMAL LEVELS OF OTHER SERUM ENZYMES (4) Diabetes Assessment/Plan: sliding scale insulin dose increased per endocrine hgba1c 11.1 Code(s): E11.9 - TYPE 2 DIABETES MELLITUS WITHOUT COMPLICATIONS Qualifiers: Diabetes mellitus type: type 2 Diabetes mellitus long term care pharmacist insulin use: with jail use Diabetes mellitus complication status: with unspecified complications Qualified Code(s): E11.8 - Type 2 diabetes mellitus with unspecified complications; Z79.4 - ferry terminal agent (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 of insulin (5) COPD (chronic obstructive pulmonary disease) Assessment/Plan: oxygen and bronchodilators no need for steroids Code(s): J44.9 - CHRONIC OBSTRUCTIVE PULMONARY DISEASE, UNSPECIFIED Qualifiers: COPD type: unspecified COPD Qualified Code(s): J44.9 - Chronic obstructive pulmonary disease, unspecified
[2018-11-16] MEDS: guaiFENesin/CODEINE 5 ML UNIT-DOSE CUPS PO PRN ×2 (16:34→22:21)
[2018-11-16 17:09] VITALS: BMI 37.3
--- NOTE | 2018-11-16 17:16 | PN ---
Progress Note, Physician Chief Complaint: SHORT OF BREATH COUGH - Current Medication List Current Medications: Active Medications Acetaminophen (Tylenol -) 650 mg PO Q4H PRN PRN Reason: PAIN 1-3 Last Admin: 11/15/18 22:08 Dose: 650 mg Albuterol Sulfate (Ventolin 0.083% Nebulizer Soln -) 1 amp NEB Q6H PRN PRN Reason: SHORT OF BREATH/WHEEZING Last Admin: 11/15/18 22:42 Dose: 1 amp Albuterol/Ipratropium (Duoneb -) 1 amp NEB RQID [facility] Last Admin: 11/16/18 16:10 Dose: 1 amp Aspirin (Ecotrin -) 81 mg PO DAILY [facility] Last Admin: 11/16/18 09:38 Dose: 81 mg Atorvastatin Calcium (Lipitor -) 10 mg PO HS [facility] Last Admin: 11/15/18 22:08 Dose: 10 mg Carvedilol (Coreg -) 25 mg PO BID [facility] Last Admin: 11/16/18 09:38 Dose: 25 mg Furosemide (Lasix Injection -) 60 mg IVPUSH BID@0600,1400 [facility] Last Admin: 11/16/18 15:52 Dose: 60 mg Guaifenesin/Codeine Phosphate (Robitussin Ac -) 5 ml PO TID PRN PRN Reason: COUGH Last Admin: 11/16/18 16:34 Dose: 5 ml Heparin Sodium (Porcine) (Heparin -) 5,000 unit SQ BID [facility] Last Admin: 11/16/18 09:38 Dose: 5,000 unit Ceftriaxone Sodium 1 gm/ (Dextrose) 50 mls @ 100 mls/hr IVPB DAILY [facility]; Protocol Last Admin: 11/16/18 14:59 Dose: 100 mls/hr Insulin Aspart (Novolog Vial Sliding Scale -) 1 vial SQ ACHS [facility]; Protocol Insulin Detemir (Levemir Vial) 15 units SQ HS [facility] Last Admin: 11/15/18 22:10 Dose: 15 unit Isosorbide Mononitrate (Imdur -) 30 mg PO DAILY [facility] Last Admin: 11/16/18 09:38 Dose: 30 mg Losartan Potassium (Cozaar -) 50 mg PO DAILY [facility] Last Admin: 11/16/18 09:38 Dose: 50 mg Nicotine (Nicoderm Patch -) 7 mg TD DAILY [facility] Last Admin: 11/16/18 09:38 Dose: 7 mg Ondansetron HCl (Zofran Odt -) 4 mg SL Q6H PRN PRN Reason: NAUSEA AND/OR VOMITING Polyethylene Glycol (Miralax (For Daily Use) -) 17 gm PO DAILY [facility] Last Admin: 11/16/18 09:39 Dose: Not Given Pramipexole Dihydrochloride (Mirapex -) 0.25 mg PO HS [facility] Last Admin: 11/15/18 22:08 Dose: 0.25 mg Prednisone (Deltasone -) 40 mg PO DAILY [facility] Last Admin: 11/16/18 09:38 Dose: 40 mg Spironolactone (Aldactone -) 25 mg PO DAILY [facility] Last Admin: 11/16/18 09:39 Dose: 25 mg Sumatriptan Succinate (Imitrex -) 100 mg PO ONCE PRN PRN Reason: HEADACHE Topiramate (Topamax -) 50 mg PO BID [facility] Last Admin: 11/16/18 09:38 Dose: 50 mg - Objective Vital Signs: Vital Signs Temperature 97.5 F L 11/16/18 14:06 Pulse Rate 92 H 11/16/18 14:06 Respiratory Rate 22 H 11/16/18 14:06 Blood Pressure 156/88 11/16/18 14:06 O2 Sat by Pulse Oximetry (%) 98 11/16/18 09:00 Constitutional: Yes: Anxious Eyes: Yes: EOM Intact HENT: Yes: Normocephalic Neck: Yes: Trachea Midline Cardiovascular: Yes: Tachycardia Respiratory: Yes: On Nasal O2, Tachypnea, Wheezes Gastrointestinal: Yes: Abdomen, Obese ...Rectal Exam: Yes: Deferred Musculoskeletal: Yes: Muscle Weakness Edema: Yes Neurological: Yes: Alert, Oriented Labs: CBC, BMP 11/16/18 06:30 11/16/18 06:30 INR, PTT INR 1.10 (0.83-1.09) H 11/07/18 13:08 Problem List - Problems (1) Type 2 diabetes mellitus with diabetic nephropathy Code(s): E11.21 - TYPE 2 DIABETES MELLITUS WITH DIABETIC NEPHROPATHY (2) CHF (congestive heart failure) Code(s): I50.9 - HEART FAILURE, UNSPECIFIED (3) Chronic hypoxemic respiratory failure Code(s): J96.11 - CHRONIC RESPIRATORY FAILURE WITH HYPOXIA (4) Abnormal liver enzymes Code(s): R74.8 - ABNORMAL LEVELS OF OTHER SERUM ENZYMES (5) Acute on chronic respiratory failure with hypoxemia Code(s): J96.21 - ACUTE AND CHRONIC RESPIRATORY FAILURE WITH HYPOXIA (6) Acute on chronic systolic (congestive) heart failure Code(s): I50.23 - ACUTE ON CHRONIC SYSTOLIC (CONGESTIVE) HEART FAILURE (7) Asthma Code(s): J45.909 - UNSPECIFIED ASTHMA, UNCOMPLICATED Qualifiers: Asthma severity: unspecified severity Asthma complication type: uncomplicated Assessment/Plan Current Active Problems CHF (congestive heart failure) (Acute) Chronic hypoxemic respiratory failure (Acute) Headache (Acute) Noncompliance of patient with dietary regimen (Acute) Noncompliance with diabetes treatment (Acute) Type 2 diabetes mellitus with diabetic nephropathy (Acute) Abnormal Lab Results 11/16/18 11/16/18 06:30 06:30 RDW 17.9 H Anion Gap 6 L BUN 25 H Random Glucose 488 H* Calcium 8.0 L AST 12 L Alkaline Phosphatase 227 H Total Protein 6.1 L Albumin 2.5 L Laboratory Results - last 24 hr 11/15/18 11/15/18 11/16/18 17:30 22:17 02:46 WBC RBC Hgb Hct MCV MCH MCHC RDW Plt Count MPV Absolute Neuts (auto) Neutrophils % Lymphocytes % Monocytes % Eosinophils % Basophils % Nucleated RBC % Sodium Potassium Chloride Carbon Dioxide Anion Gap BUN Creatinine Creat Clearance w eGFR POC Glucometer 381 587 437 Random Glucose Calcium Total Bilirubin AST ALT Alkaline Phosphatase Total Protein Albumin 11/16/18 11/16/18 11/16/18 05:49 06:30 06:30 WBC 7.4 RBC 4.32 Hgb 12.9 Hct 39.7 MCV 91.8 MCH 29.8 MCHC 32.5 RDW 17.9 H Plt Count 252 MPV 8.5 Absolute Neuts (auto) 5.9 Neutrophils % 80.1 Lymphocytes % 11.2 Monocytes % 8.1 Eosinophils % 0.2 D Basophils % 0.4 Nucleated RBC % 0 Sodium 136 Potassium 4.0 Chloride 98 Carbon Dioxide 32 Anion Gap 6 L BUN 25 H Creatinine 1.3 Creat Clearance w eGFR 42.22 POC Glucometer 436 Random Glucose 488 H* Calcium 8.0 L Total Bilirubin 0.2 AST 12 L ALT 24 Alkaline Phosphatase 227 H Total Protein 6.1 L Albumin 2.5 L 11/16/18 11/16/18 12:01 17:11 WBC RBC Hgb Hct MCV MCH MCHC RDW Plt Count MPV Absolute Neuts (auto) Neutrophils % Lymphocytes % Monocytes % Eosinophils % Basophils % Nucleated RBC % Sodium Potassium Chloride Carbon Dioxide Anion Gap BUN Creatinine Creat Clearance w eGFR POC Glucometer 323 270 Random Glucose Calcium Total Bilirubin AST ALT Alkaline Phosphatase Total Protein Albumin PLAN: LEVEMIR 40 UNITS AM LEVEMIR 15 UNITS HS CONTINUE [facility] COVERAGE TITRATION OF STEROID WILL NEED LESS LEVEMIR
[2018-11-16] MEDS: ATORVASTATIN CA 10 MG TABLET (FP) PO SCH (22:16)
[2018-11-17] MEDS ORDERED: PT OWN MED DRAWER 7, Y5N ONE ×3 (01:35→09:45)
[2018-11-17] MEDS: PRAMIPEXOLE DIHYDROCHLORIDE 0.25 MG TABLET PO SCH ×2 (01:36→21:46)
[2018-11-17] MEDS: ACETAMINOPHEN 325 MG TABLET (FP) PO PRN ×2 (01:40→21:46)
[2018-11-17] MEDS: INSULIN SLIDING SCALE (NOVOLOG) 1 VIAL SQ SCH ×4 (06:50→21:47)
[2018-11-17] MEDS: INSULIN (LEVEMIR) 100 UNITS/ML UNITS SQ SCH ×2 (06:50→21:46)
[2018-11-17] MEDS: FUROSEMIDE 40 MG/4 ML INJECTABLE VIAL IVPUSH SCH ×2 (06:50→13:26)
[2018-11-17] MEDS: ALBUTEROL SO4 2.5/IPRATROPIUM 0.5 INH SOL 3 ML VIAL.NEB. NEB SCH ×5 (07:05→20:45)
[2018-11-17 07:28] LABS: BASO % 0.3 % (0-2.0); EOS % 0.2 % (0-4.5); HEMATOCRIT 42.6 % (32.4-45.2); HEMOGLOBIN 13.6 GM/dL (10.7-15.3); LYMPH % 16.6 % (8-40); MCH 29.1 pg (25.7-33.7); MCHC 31.9 g/dl (32.0-36.0); MEAN CELL VOLUME 91.4 fl (80-96); MONO % 7.7 % (3.8-10.2); NEUT % 75.2 % (42.8-82.8); PLATELET COUNT 305 K/MM3 (134-434); RBC 4.66 M/mm3 (3.60-5.2)
[2018-11-17 07:48] LABS: ALBUMIN 2.8 g/dl (3.4-5.0); ALK PHOS 198 U/L (45-117); ANION GAP 9 MMOL/L (8-16); BILIRUBIN,TOTAL 0.4 mg/dL (0.2-1); BLOOD UREA NITROGEN 33 mg/dL (7-18); CALCIUM 8.5 mg/dL (8.5-10.1); CHLORIDE 102 mmol/L (98-107); CO2 27 mmol/L (21-32); CREATININE 1.1 mg/dL (0.55-1.3); GLUCOSE,RANDOM 222 mg/dL (74-106); POTASSIUM 3.9 mmol/L (3.5-5.1); SGOT/AST 14 U/L (15-37); SGPT/ALT 27 U/L (13-61); SODIUM 138 mmol/L (136-145); TOT PROT 6.8 g/dl (6.4-8.2)
[2018-11-17] MEDS ORDERED: cefTRIAXone SODIUM 1 GM VIAL ONE (09:45)
[2018-11-17] MEDS ORDERED: DEXTROSE 5%-WATER - 50 ML IVPB ONE (09:45)
[2018-11-17] MEDS: CEFTRIAXONE 1 GM in DEXTROSE 5%-WATER - 50 ML IVPB SCH (09:49)
[2018-11-17] MEDS: ASPIRIN COATED 81 MG TABLET.EC PO SCH (09:49)
[2018-11-17] MEDS: CARVEDILOL 25 MG TABLET (FP) PO SCH ×2 (09:49→21:45)
[2018-11-17] MEDS: TOPIRAMATE 25 MG TABLET (FP) PO SCH ×2 (09:49→21:45)
[2018-11-17] MEDS: predniSONE 20 MG TABLET (UD) PO SCH (09:49)
[2018-11-17] MEDS: ISOSORBIDE MONONITRATE 30 MG TAB.SR.24H (FP) PO SCH (09:49)
[2018-11-17] MEDS: SPIRONOLACTONE 25 MG TABLET (FP) PO SCH (09:50)
[2018-11-17] MEDS: HEPARIN NA (PORCINE) 5,000 UNITS/ML 1ML VIAL SQ SCH ×2 (09:50→21:47)
[2018-11-17] MEDS: LOSARTAN POTASSIUM 50 MG TABLET (FP) PO SCH (09:50)
[2018-11-17] MEDS: NICOTINE 7 MG/24 HOURS TOPICAL PATCH TD SCH (09:50)
[2018-11-17] MEDS: guaiFENesin/CODEINE 5 ML UNIT-DOSE CUPS PO PRN ×2 (09:55→21:45)
--- NOTE | 2018-11-17 11:42 | PN ---
Progress Note, Physician History of Present Illness: pulmonary alert,comfortable,dyspnea improved,less cough - Current Medication List Current Medications: Active Medications Acetaminophen (Tylenol -) 650 mg PO Q4H PRN PRN Reason: PAIN 1-3 Last Admin: 11/17/18 01:40 Dose: 650 mg Albuterol Sulfate (Ventolin 0.083% Nebulizer Soln -) 1 amp NEB Q6H PRN PRN Reason: SHORT OF BREATH/WHEEZING Last Admin: 11/15/18 22:42 Dose: 1 amp Albuterol/Ipratropium (Duoneb -) 1 amp NEB RQID [facility] Last Admin: 11/17/18 07:05 Dose: 1 amp Aspirin (Ecotrin -) 81 mg PO DAILY [facility] Last Admin: 11/17/18 09:49 Dose: 81 mg Atorvastatin Calcium (Lipitor -) 10 mg PO HS [facility] Last Admin: 11/16/18 22:16 Dose: 10 mg Carvedilol (Coreg -) 25 mg PO BID [facility] Last Admin: 11/17/18 09:49 Dose: 25 mg Furosemide (Lasix Injection -) 60 mg IVPUSH BID@0600,1400 [facility] Last Admin: 11/17/18 06:50 Dose: 60 mg Guaifenesin/Codeine Phosphate (Robitussin Ac -) 5 ml PO TID PRN PRN Reason: COUGH Last Admin: 11/17/18 09:55 Dose: 5 ml Heparin Sodium (Porcine) (Heparin -) 5,000 unit SQ BID [facility] Last Admin: 11/17/18 09:50 Dose: 5,000 unit Ceftriaxone Sodium 1 gm/ (Dextrose) 50 mls @ 100 mls/hr IVPB DAILY [facility]; Protocol Last Admin: 11/17/18 09:49 Dose: 100 mls/hr Insulin Aspart (Novolog Vial Sliding Scale -) 1 vial SQ ACHS [facility]; Protocol Last Admin: 11/17/18 06:50 Dose: 6 unit Insulin Detemir (Levemir Vial) 15 units SQ HS [facility] Last Admin: 11/16/18 22:14 Dose: 15 unit Insulin Detemir (Levemir Vial) 40 units SQ DAILY@0700 [facility] Last Admin: 11/17/18 06:50 Dose: 40 unit Isosorbide Mononitrate (Imdur -) 30 mg PO DAILY [facility] Last Admin: 11/17/18 09:49 Dose: 30 mg Losartan Potassium (Cozaar -) 50 mg PO DAILY [facility] Last Admin: 11/17/18 09:50 Dose: 50 mg Nicotine (Nicoderm Patch -) 7 mg TD DAILY [facility] Last Admin: 11/17/18 09:50 Dose: 7 mg Ondansetron HCl (Zofran Odt -) 4 mg SL Q6H PRN PRN Reason: NAUSEA AND/OR VOMITING Polyethylene Glycol (Miralax (For Daily Use) -) 17 gm PO DAILY [facility] Last Admin: 11/16/18 09:39 Dose: Not Given Pramipexole Dihydrochloride (Mirapex -) 0.25 mg PO HS [facility] Last Admin: 11/17/18 01:36 Dose: 0.25 mg Prednisone (Deltasone -) 40 mg PO DAILY [facility] Last Admin: 11/17/18 09:49 Dose: 40 mg Spironolactone (Aldactone -) 25 mg PO DAILY [facility] Last Admin: 11/17/18 09:50 Dose: 25 mg Sumatriptan Succinate (Imitrex -) 100 mg PO ONCE PRN PRN Reason: HEADACHE Topiramate (Topamax -) 50 mg PO BID [facility] Last Admin: 11/17/18 09:49 Dose: 50 mg - Objective Vital Signs: Vital Signs Temperature 97.9 F 11/17/18 06:00 Pulse Rate 87 11/17/18 06:00 Respiratory Rate 20 11/17/18 06:00 Blood Pressure 142/87 11/17/18 06:00 O2 Sat by Pulse Oximetry (%) 95 11/16/18 21:00 Constitutional: Yes: Well Nourished, Calm Eyes: Yes: WNL HENT: Yes: WNL Neck: Yes: WNL Cardiovascular: Yes: Regular Rate and Rhythm, S1, S2 Respiratory: Yes: Rales (scattered vivi rales) Gastrointestinal: Yes: Normal Bowel Sounds, Soft Extremities: Yes: WNL Edema: Yes (r>l) Labs: CBC, BMP 11/17/18 06:30 11/17/18 06:30 INR, PTT INR 1.10 (0.83-1.09) H 11/07/18 13:08 Problem List - Problems (1) Chronic hypoxemic respiratory failure Code(s): J96.11 - CHRONIC RESPIRATORY FAILURE WITH HYPOXIA Assessment/Plan Problem List - Problems (1) Acute on chronic systolic (congestive) heart failure Code(s): I50.23 - ACUTE ON CHRONIC SYSTOLIC (CONGESTIVE) HEART FAILURE (2) COPD (chronic obstructive pulmonary disease) Code(s): J44.9 - CHRONIC OBSTRUCTIVE PULMONARY DISEASE, UNSPECIFIED Qualifiers: COPD type: unspecified COPD Qualified Code(s): J44.9 - Chronic obstructive pulmonary disease, unspecified (3) Diabetes Code(s): E11.9 - TYPE 2 DIABETES MELLITUS WITHOUT COMPLICATIONS Qualifiers: Diabetes mellitus type: type 2 Diabetes mellitus ferry terminal agent insulin use: with senior care use Diabetes mellitus complication status: with unspecified complications Qualified Code(s): E11.8 - Type 2 diabetes mellitus with unspecified complications; Z79.4 - alf (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 of insulin (4) HTN (hypertension) Code(s): I10 - ESSENTIAL (PRIMARY) HYPERTENSION Qualifiers: Hypertension type: essential hypertension Qualified Code(s): I10 - Essential (primary) hypertension 5 PNEUMONIA Assessment/Plan Acute on Chronic Systolic Heart Failure improving +Troponins Chronic Hypoxic Respiratory Failure COPD HTN DM HEMOPTYSIS improved PNEUMONIA - IV lasix - monitor urine output, creatinine - daily weights - O2 to keep Spo2 >90% - inhaled bronchodilators as needed - DVT prophylaxis - abx as per aniyah LOMELI
[2018-11-17] MEDS: POLYETHYLENE GLYCOL 3350 119 GM BTL PO SCH (13:35)
--- NOTE | 2018-11-17 13:55 | PN ---
Progress Note, Physician - Current Medication List Current Medications: Active Medications Acetaminophen (Tylenol -) 650 mg PO Q4H PRN PRN Reason: PAIN 1-3 Last Admin: 11/17/18 01:40 Dose: 650 mg Albuterol Sulfate (Ventolin 0.083% Nebulizer Soln -) 1 amp NEB Q6H PRN PRN Reason: SHORT OF BREATH/WHEEZING Last Admin: 11/15/18 22:42 Dose: 1 amp Albuterol/Ipratropium (Duoneb -) 1 amp NEB RQID [facility] Last Admin: 11/17/18 12:13 Dose: 1 amp Aspirin (Ecotrin -) 81 mg PO DAILY [facility] Last Admin: 11/17/18 09:49 Dose: 81 mg Atorvastatin Calcium (Lipitor -) 10 mg PO HS [facility] Last Admin: 11/16/18 22:16 Dose: 10 mg Carvedilol (Coreg -) 25 mg PO BID [facility] Last Admin: 11/17/18 09:49 Dose: 25 mg Furosemide (Lasix Injection -) 60 mg IVPUSH BID@0600,1400 [facility] Last Admin: 11/17/18 13:26 Dose: 60 mg Guaifenesin/Codeine Phosphate (Robitussin Ac -) 5 ml PO TID PRN PRN Reason: COUGH Last Admin: 11/17/18 09:55 Dose: 5 ml Heparin Sodium (Porcine) (Heparin -) 5,000 unit SQ BID [facility] Last Admin: 11/17/18 09:50 Dose: 5,000 unit Ceftriaxone Sodium 1 gm/ (Dextrose) 50 mls @ 100 mls/hr IVPB DAILY [facility]; Protocol Last Admin: 11/17/18 09:49 Dose: 100 mls/hr Insulin Aspart (Novolog Vial Sliding Scale -) 1 vial SQ ACHS [facility]; Protocol Last Admin: 11/17/18 11:51 Dose: Not Given Insulin Detemir (Levemir Vial) 15 units SQ HS [facility] Last Admin: 11/16/18 22:14 Dose: 15 unit Insulin Detemir (Levemir Vial) 40 units SQ DAILY@0700 [facility] Last Admin: 11/17/18 06:50 Dose: 40 unit Isosorbide Mononitrate (Imdur -) 30 mg PO DAILY [facility] Last Admin: 11/17/18 09:49 Dose: 30 mg Losartan Potassium (Cozaar -) 50 mg PO DAILY [facility] Last Admin: 11/17/18 09:50 Dose: 50 mg Nicotine (Nicoderm Patch -) 7 mg TD DAILY [facility] Last Admin: 11/17/18 09:50 Dose: 7 mg Ondansetron HCl (Zofran Odt -) 4 mg SL Q6H PRN PRN Reason: NAUSEA AND/OR VOMITING Polyethylene Glycol (Miralax (For Daily Use) -) 17 gm PO DAILY [facility] Last Admin: 11/17/18 13:35 Dose: 17 gm Pramipexole Dihydrochloride (Mirapex -) 0.25 mg PO HS [facility] Last Admin: 11/17/18 01:36 Dose: 0.25 mg Prednisone (Deltasone -) 40 mg PO DAILY [facility] Last Admin: 11/17/18 09:49 Dose: 40 mg Spironolactone (Aldactone -) 25 mg PO DAILY [facility] Last Admin: 11/17/18 09:50 Dose: 25 mg Sumatriptan Succinate (Imitrex -) 100 mg PO ONCE PRN PRN Reason: HEADACHE Topiramate (Topamax -) 50 mg PO BID [facility] Last Admin: 11/17/18 09:49 Dose: 50 mg - Objective Vital Signs: Vital Signs Temperature 97.9 F 11/17/18 06:00 Pulse Rate 88 11/17/18 10:00 Respiratory Rate 18 11/17/18 10:00 Blood Pressure 150/100 11/17/18 10:00 O2 Sat by Pulse Oximetry (%) 95 11/17/18 09:00 Labs: CBC, BMP 11/17/18 06:30 11/17/18 06:30 INR, PTT INR 1.10 (0.83-1.09) H 11/07/18 13:08 Assessment/Plan - Problems (1) Headache Assessment/Plan: ct head done no acute pathology neurology eval noted topiramate and coreg and mirapex resumed for RLS Code(s): R51 - HEADACHE (2) CHF (congestive heart failure) Assessment/Plan: echo done severly reduced systolic function and global hypokinesis iv 40mg lasix BID inc to 60mg iv bid- daily weight- coreg 25mg bid cozaar aldactone Code(s): I50.9 - HEART FAILURE, UNSPECIFIED (3) Abnormal liver enzymes Assessment/Plan: secondary to hepatic congestion lft is trending down Code(s): R74.8 - ABNORMAL LEVELS OF OTHER SERUM ENZYMES (4) Diabetes Assessment/Plan: sliding scale insulin dose increased per endocrine [id number] 11.1 Code(s): E11.9 - TYPE 2 DIABETES MELLITUS WITHOUT COMPLICATIONS Qualifiers: Diabetes mellitus type: type 2 Diabetes mellitus [employer] insulin use: with residential use Diabetes mellitus complication status: with unspecified complications Qualified Code(s): E11.8 - Type 2 diabetes mellitus with unspecified complications; Z79.4 - tank terminal gauger (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 of insulin (5) COPD (chronic obstructive pulmonary disease) Assessment/Plan: oxygen and bronchodilators no need for steroids Code(s): J44.9 - CHRONIC OBSTRUCTIVE PULMONARY DISEASE, UNSPECIFIED Qualifiers: COPD type: unspecified COPD Qualified Code(s): J44.9 - Chronic obstructive pulmonary disease, unspecified
[2018-11-17] MEDS: ATORVASTATIN CA 10 MG TABLET (FP) PO SCH (21:45)
[2018-11-18] MEDS: FUROSEMIDE 40 MG/4 ML INJECTABLE VIAL IVPUSH SCH (07:03)
[2018-11-18] MEDS: INSULIN (LEVEMIR) 100 UNITS/ML UNITS SQ SCH ×2 (07:04→22:23)
[2018-11-18] MEDS: INSULIN SLIDING SCALE (NOVOLOG) 1 VIAL SQ SCH ×4 (07:05→22:22)
[2018-11-18 07:21] LABS: BASO % 0.4 % (0-2.0); EOS % 0.2 % (0-4.5); HEMATOCRIT 42.3 % (32.4-45.2); HEMOGLOBIN 13.5 GM/dL (10.7-15.3); LYMPH % 15.3 % (8-40); MCH 29.4 pg (25.7-33.7); MEAN CELL VOLUME 91.9 fl (80-96); MONO % 7.7 % (3.8-10.2); NEUT % 76.4 % (42.8-82.8); PLATELET COUNT 299 K/MM3 (134-434); RDW 17.1 % (11.6-15.6); WHITE BLOOD COUNT 7.9 K/mm3 (4.0-10.0)
[2018-11-18 07:45] LABS: ALBUMIN 2.5 g/dl (3.4-5.0); ALK PHOS 150 U/L (45-117); ANION GAP 4 MMOL/L (8-16); BILIRUBIN,TOTAL 0.3 mg/dL (0.2-1); BLOOD UREA NITROGEN 38 mg/dL (7-18); CALCIUM 8.3 mg/dL (8.5-10.1); CHLORIDE 100 mmol/L (98-107); CO2 33 mmol/L (21-32); CREATININE 1.1 mg/dL (0.55-1.3); GLUCOSE,RANDOM 234 mg/dL (74-106); SGOT/AST 14 U/L (15-37); SGPT/ALT 25 U/L (13-61); SODIUM 137 mmol/L (136-145); TOT PROT 6.2 g/dl (6.4-8.2)
[2018-11-18] MEDS: ALBUTEROL SO4 2.5/IPRATROPIUM 0.5 INH SOL 3 ML VIAL.NEB. NEB SCH ×4 (08:00→20:15)
[2018-11-18] MEDS ORDERED: cefTRIAXone SODIUM 1 GM VIAL ONE (10:51)
[2018-11-18] MEDS ORDERED: DEXTROSE 5%-WATER - 100 ML IVPB ONE (10:52)
[2018-11-18] MEDS: LOSARTAN POTASSIUM 50 MG TABLET (FP) PO SCH (11:29)
[2018-11-18] MEDS: CARVEDILOL 25 MG TABLET (FP) PO SCH ×2 (11:29→22:20)
[2018-11-18] MEDS: TOPIRAMATE 25 MG TABLET (FP) PO SCH ×2 (11:29→22:20)
[2018-11-18] MEDS: ISOSORBIDE MONONITRATE 30 MG TAB.SR.24H (FP) PO SCH (11:29)
[2018-11-18] MEDS: ASPIRIN COATED 81 MG TABLET.EC PO SCH (11:29)
[2018-11-18] MEDS: SPIRONOLACTONE 25 MG TABLET (FP) PO SCH (11:30)
[2018-11-18] MEDS: predniSONE 20 MG TABLET (UD) PO SCH (11:30)
[2018-11-18] MEDS: NICOTINE 7 MG/24 HOURS TOPICAL PATCH TD SCH (11:31)
[2018-11-18] MEDS: HEPARIN NA (PORCINE) 5,000 UNITS/ML 1ML VIAL SQ SCH ×2 (11:31→22:20)
--- NOTE | 2018-11-18 11:32 | PN ---
Progress Note, Physician History of Present Illness: pulmonary alert,no distress,-cp,-sob - Current Medication List Current Medications: Active Medications Acetaminophen (Tylenol -) 650 mg PO Q4H PRN PRN Reason: PAIN 1-3 Last Admin: 11/17/18 21:46 Dose: 650 mg Albuterol/Ipratropium (Duoneb -) 1 amp NEB RQID [facility] Last Admin: 11/17/18 20:45 Dose: 1 amp Aspirin (Ecotrin -) 81 mg PO DAILY [facility] Last Admin: 11/17/18 09:49 Dose: 81 mg Atorvastatin Calcium (Lipitor -) 10 mg PO HS [facility] Last Admin: 11/17/18 21:45 Dose: 10 mg Carvedilol (Coreg -) 25 mg PO BID [facility] Last Admin: 11/17/18 21:45 Dose: 25 mg Furosemide (Lasix Injection -) 60 mg IVPUSH BID@0600,1400 [facility] Last Admin: 11/18/18 07:03 Dose: 60 mg Guaifenesin/Codeine Phosphate (Robitussin Ac -) 5 ml PO TID PRN PRN Reason: COUGH Last Admin: 11/17/18 21:45 Dose: 5 ml Heparin Sodium (Porcine) (Heparin -) 5,000 unit SQ BID [facility] Last Admin: 11/17/18 21:47 Dose: 5,000 unit Ceftriaxone Sodium 1 gm/ (Dextrose) 50 mls @ 100 mls/hr IVPB DAILY [facility]; Protocol Last Admin: 11/17/18 09:49 Dose: 100 mls/hr Insulin Aspart (Novolog Vial Sliding Scale -) 1 vial SQ ACHS [facility]; Protocol Last Admin: 11/18/18 07:05 Dose: 6 unit Insulin Detemir (Levemir Vial) 15 units SQ HS [facility] Last Admin: 11/17/18 21:46 Dose: 15 unit Insulin Detemir (Levemir Vial) 40 units SQ DAILY@0700 [facility] Last Admin: 11/18/18 07:04 Dose: 40 unit Isosorbide Mononitrate (Imdur -) 30 mg PO DAILY [facility] Last Admin: 11/17/18 09:49 Dose: 30 mg Losartan Potassium (Cozaar -) 50 mg PO DAILY [facility] Last Admin: 11/17/18 09:50 Dose: 50 mg Nicotine (Nicoderm Patch -) 7 mg TD DAILY [facility] Last Admin: 11/17/18 09:50 Dose: 7 mg Ondansetron HCl (Zofran Odt -) 4 mg SL Q6H PRN PRN Reason: NAUSEA AND/OR VOMITING Polyethylene Glycol (Miralax (For Daily Use) -) 17 gm PO DAILY [facility] Last Admin: 11/17/18 13:35 Dose: 17 gm Pramipexole Dihydrochloride (Mirapex -) 0.25 mg PO HS [facility] Last Admin: 11/17/18 21:46 Dose: 0.25 mg Prednisone (Deltasone -) 30 mg PO DAILY [facility] Spironolactone (Aldactone -) 25 mg PO DAILY [facility] Last Admin: 11/17/18 09:50 Dose: 25 mg Sumatriptan Succinate (Imitrex -) 100 mg PO ONCE PRN PRN Reason: HEADACHE Topiramate (Topamax -) 50 mg PO BID [facility] Last Admin: 11/17/18 21:45 Dose: 50 mg - Objective Vital Signs: Vital Signs Temperature 98.1 F 11/18/18 06:00 Pulse Rate 84 11/18/18 06:00 Respiratory Rate 20 11/18/18 06:00 Blood Pressure 127/83 11/18/18 06:00 O2 Sat by Pulse Oximetry (%) 94 L 11/17/18 21:00 Constitutional: Yes: Well Nourished, Calm Eyes: Yes: WNL HENT: Yes: WNL Neck: Yes: WNL Cardiovascular: Yes: Regular Rate and Rhythm, S1, S2 Respiratory: Yes: Wheezes (few wheezes) Gastrointestinal: Yes: Normal Bowel Sounds, Soft Extremities: Yes: WNL Edema: Yes Labs: CBC, BMP 11/18/18 06:30 11/18/18 06:30 INR, PTT INR 1.10 (0.83-1.09) H 11/07/18 13:08 Problem List - Problems (1) Chronic hypoxemic respiratory failure Code(s): J96.11 - CHRONIC RESPIRATORY FAILURE WITH HYPOXIA Assessment/Plan Problem List - Problems (1) Acute on chronic systolic (congestive) heart failure Code(s): I50.23 - ACUTE ON CHRONIC SYSTOLIC (CONGESTIVE) HEART FAILURE (2) COPD (chronic obstructive pulmonary disease) Code(s): J44.9 - CHRONIC OBSTRUCTIVE PULMONARY DISEASE, UNSPECIFIED Qualifiers: COPD type: unspecified COPD Qualified Code(s): J44.9 - Chronic obstructive pulmonary disease, unspecified (3) Diabetes Code(s): E11.9 - TYPE 2 DIABETES MELLITUS WITHOUT COMPLICATIONS Qualifiers: Diabetes mellitus type: type 2 Diabetes mellitus [facility] insulin use: with intermodal dispatcher use Diabetes mellitus complication status: with unspecified complications Qualified Code(s): E11.8 - Type 2 diabetes mellitus with unspecified complications; Z79.4 - group home (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 of insulin (4) HTN (hypertension) Code(s): I10 - ESSENTIAL (PRIMARY) HYPERTENSION Qualifiers: Hypertension type: essential hypertension Qualified Code(s): I10 - Essential (primary) hypertension 5 PNEUMONIA Assessment/Plan Acute on Chronic Systolic Heart Failure improving +Troponins Chronic Hypoxic Respiratory Failure COPD HTN DM HEMOPTYSIS improved PNEUMONIA - IV lasix - monitor urine output, creatinine - daily weights - O2 to keep Spo2 >90% - inhaled bronchodilators as needed - DVT prophylaxis - abx as per id - prednisone DR LOMELI
[2018-11-18] MEDS: POLYETHYLENE GLYCOL 3350 119 GM BTL PO SCH ×2 (11:37→22:23)
[2018-11-18] MEDS: CEFTRIAXONE 1 GM in DEXTROSE 5%-WATER - 50 ML IVPB SCH (11:38)
--- NOTE | 2018-11-18 11:44 | PN ---
Progress Note, Physician - Current Medication List Current Medications: Active Medications Acetaminophen (Tylenol -) 650 mg PO Q4H PRN PRN Reason: PAIN 1-3 Last Admin: 11/17/18 21:46 Dose: 650 mg Albuterol/Ipratropium (Duoneb -) 1 amp NEB RQID [facility] Last Admin: 11/17/18 20:45 Dose: 1 amp Aspirin (Ecotrin -) 81 mg PO DAILY [facility] Last Admin: 11/17/18 09:49 Dose: 81 mg Atorvastatin Calcium (Lipitor -) 10 mg PO HS [facility] Last Admin: 11/17/18 21:45 Dose: 10 mg Carvedilol (Coreg -) 25 mg PO BID [facility] Last Admin: 11/17/18 21:45 Dose: 25 mg Furosemide (Lasix Injection -) 60 mg IVPUSH BID@0600,1400 [facility] Last Admin: 11/18/18 07:03 Dose: 60 mg Guaifenesin/Codeine Phosphate (Robitussin Ac -) 5 ml PO TID PRN PRN Reason: COUGH Last Admin: 11/17/18 21:45 Dose: 5 ml Heparin Sodium (Porcine) (Heparin -) 5,000 unit SQ BID [facility] Last Admin: 11/17/18 21:47 Dose: 5,000 unit Ceftriaxone Sodium 1 gm/ (Dextrose) 50 mls @ 100 mls/hr IVPB DAILY [facility]; Protocol Last Admin: 11/17/18 09:49 Dose: 100 mls/hr Insulin Aspart (Novolog Vial Sliding Scale -) 1 vial SQ ACHS [facility]; Protocol Last Admin: 11/18/18 07:05 Dose: 6 unit Insulin Detemir (Levemir Vial) 15 units SQ HS [facility] Last Admin: 11/17/18 21:46 Dose: 15 unit Insulin Detemir (Levemir Vial) 40 units SQ DAILY@0700 [facility] Last Admin: 11/18/18 07:04 Dose: 40 unit Isosorbide Mononitrate (Imdur -) 30 mg PO DAILY [facility] Last Admin: 11/17/18 09:49 Dose: 30 mg Losartan Potassium (Cozaar -) 50 mg PO DAILY [facility] Last Admin: 11/17/18 09:50 Dose: 50 mg Nicotine (Nicoderm Patch -) 7 mg TD DAILY [facility] Last Admin: 11/17/18 09:50 Dose: 7 mg Ondansetron HCl (Zofran Odt -) 4 mg SL Q6H PRN PRN Reason: NAUSEA AND/OR VOMITING Polyethylene Glycol (Miralax (For Daily Use) -) 17 gm PO DAILY [facility] Last Admin: 11/17/18 13:35 Dose: 17 gm Pramipexole Dihydrochloride (Mirapex -) 0.25 mg PO HS [facility] Last Admin: 11/17/18 21:46 Dose: 0.25 mg Prednisone (Deltasone -) 30 mg PO DAILY [facility] Spironolactone (Aldactone -) 25 mg PO DAILY [facility] Last Admin: 11/17/18 09:50 Dose: 25 mg Sumatriptan Succinate (Imitrex -) 100 mg PO ONCE PRN PRN Reason: HEADACHE Topiramate (Topamax -) 50 mg PO BID [facility] Last Admin: 11/17/18 21:45 Dose: 50 mg - Objective Vital Signs: Vital Signs Temperature 98.1 F 11/18/18 06:00 Pulse Rate 84 11/18/18 06:00 Respiratory Rate 20 11/18/18 06:00 Blood Pressure 127/83 11/18/18 06:00 O2 Sat by Pulse Oximetry (%) 94 L 11/17/18 21:00 Cardiovascular: Yes: S1, S2 Respiratory: Yes: Regular, CTA Bilaterally Gastrointestinal: Yes: Normal Bowel Sounds, Soft Edema: Yes Labs: CBC, BMP 11/18/18 06:30 11/18/18 06:30 INR, PTT INR 1.10 (0.83-1.09) H 11/07/18 13:08 Assessment/Plan - Problems (1) Headache Assessment/Plan: ct head done no acute pathology neurology eval noted topiramate and coreg and mirapex resumed for RLS Code(s): R51 - HEADACHE (2) CHF (congestive heart failure) Assessment/Plan: echo done severly reduced systolic function and global hypokinesis iv 40mg lasix BID inc to 60mg iv bid-PO daily weight- coreg 25mg bid cozaar aldactone added zaroxolyn Code(s): I50.9 - HEART FAILURE, UNSPECIFIED (3) Abnormal liver enzymes Assessment/Plan: secondary to hepatic congestion lft is trending down Code(s): R74.8 - ABNORMAL LEVELS OF OTHER SERUM ENZYMES (4) Diabetes Assessment/Plan: sliding scale insulin dose increased per endocrine [id number] 11.1 Code(s): E11.9 - TYPE 2 DIABETES MELLITUS WITHOUT COMPLICATIONS Qualifiers: Diabetes mellitus type: type 2 Diabetes mellitus fdc insulin use: with fdc use Diabetes mellitus complication status: with unspecified complications Qualified Code(s): E11.8 - Type 2 diabetes mellitus with unspecified complications; 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
[2018-11-18] MEDS: FUROSEMIDE 20 MG TABLET (FP) PO SCH (14:55)
[2018-11-18] MEDS ORDERED: BISACODYL 5 MG TABLET.DR (FP) PO ONE (15:42)
[2018-11-18] MEDS: guaiFENesin/CODEINE 5 ML UNIT-DOSE CUPS PO PRN (22:20)
[2018-11-18] MEDS: ATORVASTATIN CA 10 MG TABLET (FP) PO SCH (22:20)
[2018-11-18] MEDS: PRAMIPEXOLE DIHYDROCHLORIDE 0.25 MG TABLET PO SCH (22:20)
[2018-11-18] MEDS: ACETAMINOPHEN 325 MG TABLET (FP) PO PRN (22:21)
[2018-11-19] MEDS: METOLAZONE 2.5 MG TABLET (FP) PO SCH (05:35)
[2018-11-19] MEDS: INSULIN (LEVEMIR) 100 UNITS/ML UNITS SQ SCH ×2 (06:53→21:51)
[2018-11-19] MEDS: guaiFENesin/CODEINE 5 ML UNIT-DOSE CUPS PO PRN ×2 (06:53→21:43)
[2018-11-19] MEDS: FUROSEMIDE 20 MG TABLET (FP) PO SCH ×2 (06:53→16:28)
[2018-11-19] MEDS: INSULIN SLIDING SCALE (NOVOLOG) 1 VIAL SQ SCH ×4 (06:54→21:53)
[2018-11-19] MEDS: ALBUTEROL SO4 2.5/IPRATROPIUM 0.5 INH SOL 3 ML VIAL.NEB. NEB SCH (08:00)
[2018-11-19] MEDS ORDERED: BISACODYL 5 MG TABLET.DR (FP) PO PRN (10:00)
[2018-11-19] MEDS ORDERED: INSULIN (NOVOLOG) ASPART 100 UNITS/ML 10ML VIAL ONE (10:12)
[2018-11-19] MEDS ORDERED: DEXTROSE 5%-WATER - 50 ML IVPB ONE (10:14)
[2018-11-19] MEDS ORDERED: cefTRIAXone SODIUM 1 GM VIAL ONE (10:14)
[2018-11-19] MEDS: LOSARTAN POTASSIUM 50 MG TABLET (FP) PO SCH (10:21)
[2018-11-19] MEDS: ISOSORBIDE MONONITRATE 30 MG TAB.SR.24H (FP) PO SCH (10:21)
[2018-11-19] MEDS: CARVEDILOL 25 MG TABLET (FP) PO SCH ×2 (10:21→21:42)
[2018-11-19] MEDS: CEFTRIAXONE 1 GM in DEXTROSE 5%-WATER - 50 ML IVPB SCH (10:21)
[2018-11-19] MEDS: predniSONE 20 MG TABLET (UD) PO SCH (10:21)
[2018-11-19] MEDS: ASPIRIN COATED 81 MG TABLET.EC PO SCH (10:22)
[2018-11-19] MEDS: HEPARIN NA (PORCINE) 5,000 UNITS/ML 1ML VIAL SQ SCH ×2 (10:22→21:43)
[2018-11-19] MEDS: TOPIRAMATE 25 MG TABLET (FP) PO SCH ×2 (10:22→21:43)
[2018-11-19] MEDS: SPIRONOLACTONE 25 MG TABLET (FP) PO SCH (10:22)
[2018-11-19] MEDS: NICOTINE 7 MG/24 HOURS TOPICAL PATCH TD SCH (10:23)
[2018-11-19] MEDS: POLYETHYLENE GLYCOL 3350 119 GM BTL PO SCH ×2 (10:48→21:40)
--- NOTE | 2018-11-19 12:18 | PN ---
Progress Note, Physician History of Present Illness: PULMONARY ALERT,NO DISTRESS,-SOB,-CP,-COUGH - Current Medication List Current Medications: Active Medications Acetaminophen (Tylenol -) 650 mg PO Q4H PRN PRN Reason: PAIN 1-3 Last Admin: 11/18/18 22:21 Dose: 650 mg Aspirin (Ecotrin -) 81 mg PO DAILY [facility] Last Admin: 11/19/18 10:22 Dose: 81 mg Atorvastatin Calcium (Lipitor -) 10 mg PO HS [facility] Last Admin: 11/18/18 22:20 Dose: 10 mg Bisacodyl (Dulcolax -) 5 mg PO DAILY PRN PRN Reason: CONSTIPATION Carvedilol (Coreg -) 25 mg PO BID [facility] Last Admin: 11/19/18 10:21 Dose: 25 mg Furosemide (Lasix -) 60 mg PO BIDLASIX [facility] Last Admin: 11/19/18 06:53 Dose: 60 mg Guaifenesin/Codeine Phosphate (Robitussin Ac -) 5 ml PO TID PRN PRN Reason: COUGH Last Admin: 11/19/18 06:53 Dose: 5 ml Heparin Sodium (Porcine) (Heparin -) 5,000 unit SQ BID [facility] Last Admin: 11/19/18 10:22 Dose: 5,000 unit Ceftriaxone Sodium 1 gm/ (Dextrose) 50 mls @ 100 mls/hr IVPB DAILY [facility]; Protocol Last Admin: 11/19/18 10:21 Dose: 100 mls/hr Insulin Aspart (Novolog Vial Sliding Scale -) 1 vial SQ ACHS [facility]; Protocol Last Admin: 11/19/18 11:20 Dose: 6 unit Insulin Detemir (Levemir Vial) 15 units SQ HS [facility] Last Admin: 11/18/18 22:23 Dose: 15 unit Insulin Detemir (Levemir Vial) 40 units SQ DAILY@0700 [facility] Last Admin: 11/19/18 06:53 Dose: 40 unit Isosorbide Mononitrate (Imdur -) 30 mg PO DAILY [facility] Last Admin: 11/19/18 10:21 Dose: 30 mg Losartan Potassium (Cozaar -) 50 mg PO DAILY [facility] Last Admin: 11/19/18 10:21 Dose: 50 mg Metolazone (Zaroxolyn -) 2.5 mg PO 0530 [facility] Last Admin: 11/19/18 05:35 Dose: 2.5 mg Nicotine (Nicoderm Patch -) 7 mg TD DAILY [facility] Last Admin: 11/19/18 10:23 Dose: 7 mg Ondansetron HCl (Zofran Odt -) 4 mg SL Q6H PRN PRN Reason: NAUSEA AND/OR VOMITING Polyethylene Glycol (Miralax (For Daily Use) -) 17 gm PO BID [facility] Last Admin: 11/19/18 10:48 Dose: Not Given Pramipexole Dihydrochloride (Mirapex -) 0.25 mg PO HS [facility] Last Admin: 11/18/18 22:20 Dose: 0.25 mg Prednisone (Deltasone -) 30 mg PO DAILY [facility] Last Admin: 11/19/18 10:21 Dose: 30 mg Spironolactone (Aldactone -) 25 mg PO DAILY [facility] Last Admin: 11/19/18 10:22 Dose: 25 mg Sumatriptan Succinate (Imitrex -) 100 mg PO ONCE PRN PRN Reason: HEADACHE Topiramate (Topamax -) 50 mg PO BID [facility] Last Admin: 11/19/18 10:22 Dose: 50 mg - Objective Vital Signs: Vital Signs Temperature 98.1 F 11/19/18 06:00 Pulse Rate 83 11/19/18 06:00 Respiratory Rate 20 11/19/18 06:00 Blood Pressure 141/92 11/19/18 06:00 O2 Sat by Pulse Oximetry (%) 95 11/18/18 21:00 Constitutional: Yes: Well Nourished, Calm Eyes: Yes: WNL HENT: Yes: WNL Neck: Yes: WNL Cardiovascular: Yes: Regular Rate and Rhythm, S1, S2 Respiratory: Yes: Rales (FEW BIBASILAR CRACKLES) Gastrointestinal: Yes: Normal Bowel Sounds, Soft Extremities: Yes: WNL Edema: Yes Labs: CBC, BMP 11/18/18 06:30 Problem List - Problems (1) Chronic hypoxemic respiratory failure Code(s): J96.11 - CHRONIC RESPIRATORY FAILURE WITH HYPOXIA Assessment/Plan Problem List - Problems (1) Acute on chronic systolic (congestive) heart failure Code(s): I50.23 - ACUTE ON CHRONIC SYSTOLIC (CONGESTIVE) HEART FAILURE (2) COPD (chronic obstructive pulmonary disease) Code(s): J44.9 - CHRONIC OBSTRUCTIVE PULMONARY DISEASE, UNSPECIFIED Qualifiers: COPD type: unspecified COPD Qualified Code(s): J44.9 - Chronic obstructive pulmonary disease, unspecified (3) Diabetes Code(s): E11.9 - TYPE 2 DIABETES MELLITUS WITHOUT COMPLICATIONS Qualifiers: Diabetes mellitus type: type 2 Diabetes mellitus 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 insulin use: with prison use Diabetes mellitus complication status: with unspecified complications Qualified Code(s): E11.8 - Type 2 diabetes mellitus with unspecified complications; 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
--- NOTE | 2018-11-19 18:02 | DS ---
Physical Examination Vital Signs: Vital Signs Temperature 97.4 F L 11/19/18 14:02 Pulse Rate 88 11/19/18 14:02 Respiratory Rate 22 H 11/19/18 14:02 Blood Pressure 130/65 11/19/18 14:02 O2 Sat by Pulse Oximetry (%) 95 11/18/18 21:00 Findings/Remarks: Patient is a 58 y/o female with past medical history HTN, CHF, COPD on O2, IDDM presented to ER with complaints of SOB for 4 days, orthopnea, and chest pressure with exertion. Patient is s/p mechanical fall x 2 trying to get on bus 2/2 knee and hip pain. ER was significant for elevated BNP 5069, no leukocytosis, CXR show L and R base infiltrate. Xray negative. Constitutional: Yes: No Distress, Calm Eyes: Yes: Conjunctiva Clear HENT: Yes: Atraumatic Cardiovascular: Yes: Regular Rate and Rhythm Respiratory: Yes: Regular, Wheezes Gastrointestinal: Yes: Normal Bowel Sounds, Soft, Abdomen, Obese Musculoskeletal: Yes: Muscle Weakness Extremities: Yes: WNL Edema: No Neurological: Yes: Alert, Oriented Psychiatric: Yes: Alert, Oriented Labs: CBC, BMP 11/18/18 06:30 11/18/18 06:30 Discharge Summary Reason For Visit: ACUTE ON CHRONIC CHF Current Active Problems CHF (congestive heart failure) (Acute) Chronic hypoxemic respiratory failure (Acute) Headache (Acute) Noncompliance of patient with dietary regimen (Acute) Noncompliance with diabetes treatment (Acute) Type 2 diabetes mellitus with diabetic nephropathy (Acute) Hospital Course: see progress notes Laboratory Tests 11/07/18 11/07/18 11/07/18 13:08 13:08 13:08 WBC 7.0 RBC 5.23 H Hgb 15.2 Hct 48.5 H MCV 92.7 MCH 29.1 MCHC 31.4 L RDW 19.0 H Plt Count 193 MPV 8.7 Absolute Neuts (auto) 5.2 Neutrophils % 74.1 Lymphocytes % 15.8 D Monocytes % 8.0 Eosinophils % 1.1 D Basophils % 1.0 D Nucleated RBC % 1 H PT with INR 13.00 INR 1.10 H PTT (Actin FS) 27.6 D-Dimer Sodium 139 Potassium 4.6 Chloride 106 Carbon Dioxide 22 Anion Gap 11 BUN 36 H Creatinine 1.1 Creat Clearance w eGFR 51.20 POC Glucometer Random Glucose 409 H* Hemoglobin A1c % Calcium 8.2 L Phosphorus Magnesium Total Bilirubin 0.6 AST 21 ALT 105 H Alkaline Phosphatase 332 H Creatine Kinase Troponin I B-Natriuretic Peptide 5069.2 H Total Protein 5.8 L Albumin 2.8 L Triglycerides Cholesterol Total LDL Cholesterol HDL Cholesterol 11/07/18 11/07/18 11/07/18 13:08 17:43 20:30 WBC RBC Hgb Hct MCV MCH MCHC RDW Plt Count MPV Absolute Neuts (auto) Neutrophils % Lymphocytes % Monocytes % Eosinophils % Basophils % Nucleated RBC % PT with INR INR PTT (Actin FS) D-Dimer Sodium Potassium Chloride Carbon Dioxide Anion Gap BUN Creatinine Creat Clearance w eGFR POC Glucometer 357 Random Glucose Hemoglobin A1c % Calcium Phosphorus Magnesium 2.0 Total Bilirubin AST ALT Alkaline Phosphatase Creatine Kinase 104 Troponin I 0.07 H 0.07 H B-Natriuretic Peptide Total Protein Albumin Triglycerides Cholesterol Total LDL Cholesterol HDL Cholesterol 11/07/18 11/08/18 11/08/18 20:51 05:25 05:30 WBC 5.6 RBC 5.04 Hgb 14.6 Hct 46.7 H MCV 92.6 MCH 29.0 MCHC 31.3 L RDW 18.1 H Plt Count 206 MPV 8.5 Absolute Neuts (auto) 3.7 Neutrophils % 66.0 Lymphocytes % 22.4 D Monocytes % 7.9 Eosinophils % 3.0 D Basophils % 0.7 Nucleated RBC % 1 H PT with INR INR PTT (Actin FS) D-Dimer Sodium Potassium Chloride Carbon Dioxide Anion Gap BUN Creatinine Creat Clearance w eGFR POC Glucometer 222 109 Random Glucose Hemoglobin A1c % Calcium Phosphorus Magnesium Total Bilirubin AST ALT Alkaline Phosphatase Creatine Kinase Troponin I B-Natriuretic Peptide Total Protein Albumin Triglycerides Cholesterol Total LDL Cholesterol HDL Cholesterol 11/08/18 11/08/18 11/08/18 05:30 05:30 11:44 WBC RBC Hgb Hct MCV MCH MCHC RDW Plt Count MPV Absolute Neuts (auto) Neutrophils % Lymphocytes % Monocytes % Eosinophils % Basophils % Nucleated RBC % PT with INR INR PTT (Actin FS) D-Dimer Sodium 142 Potassium 3.9 Chloride 110 H Carbon Dioxide 26 Anion Gap 6 L BUN 35 H Creatinine 0.9 Creat Clearance w eGFR 64.54 POC Glucometer 126 Random Glucose 98 Hemoglobin A1c % 11.1 H Calcium 7.8 L Phosphorus 3.4 Magnesium 2.0 Total Bilirubin 0.7 AST 26 ALT 89 H Alkaline Phosphatase 211 H Creatine Kinase 82 Troponin I 0.07 H B-Natriuretic Peptide 3579.0 H Total Protein 5.4 L Albumin 2.5 L Triglycerides 65 Cholesterol 120 Total LDL Cholesterol 77 HDL Cholesterol 39 L 11/08/18 11/08/18 11/09/18 17:12 21:20 05:30 WBC 4.4 RBC 4.71 Hgb 13.9 Hct 43.9 MCV 93.2 MCH 29.4 MCHC 31.6 L RDW 18.5 H Plt Count 185 MPV 8.2 Absolute Neuts (auto) 2.9 Neutrophils % 66.0 Lymphocytes % 21.5 Monocytes % 9.4 Eosinophils % 2.6 Basophils % 0.5 Nucleated RBC % 1 H PT with INR INR PTT (Actin FS) D-Dimer Sodium Potassium Chloride Carbon Dioxide Anion Gap BUN Creatinine Creat Clearance w eGFR POC Glucometer 270 306 Random Glucose Hemoglobin A1c % Calcium Phosphorus Magnesium Total Bilirubin AST ALT Alkaline Phosphatase Creatine Kinase Troponin I B-Natriuretic Peptide Total Protein Albumin Triglycerides Cholesterol Total LDL Cholesterol HDL Cholesterol 11/09/18 11/09/18 11/09/18 05:30 05:53 12:17 WBC RBC Hgb Hct MCV MCH MCHC RDW Plt Count MPV Absolute Neuts (auto) Neutrophils % Lymphocytes % Monocytes % Eosinophils % Basophils % Nucleated RBC % PT with INR INR PTT (Actin FS) D-Dimer Sodium 139 Potassium 4.4 Chloride 107 Carbon Dioxide 22 Anion Gap 10 BUN 34 H Creatinine 0.9 Creat Clearance w eGFR 64.54 POC Glucometer 193 228 Random Glucose 204 H Hemoglobin A1c % Calcium 7.6 L Phosphorus Magnesium Total Bilirubin 0.6 AST 33 ALT 68 H Alkaline Phosphatase 196 H Creatine Kinase Troponin I B-Natriuretic Peptide Total Protein 5.1 L Albumin 2.4 L Triglycerides Cholesterol Total LDL Cholesterol HDL Cholesterol 11/09/18 11/09/18 11/10/18 17:24 22:50 06:12 WBC RBC Hgb Hct MCV MCH MCHC RDW Plt Count MPV Absolute Neuts (auto) Neutrophils % Lymphocytes % Monocytes % Eosinophils % Basophils % Nucleated RBC % PT with INR INR PTT (Actin FS) D-Dimer Sodium Potassium Chloride Carbon Dioxide Anion Gap BUN Creatinine Creat Clearance w eGFR POC Glucometer 304 382 120 Random Glucose Hemoglobin A1c % Calcium Phosphorus Magnesium Total Bilirubin AST ALT Alkaline Phosphatase Creatine Kinase Troponin I B-Natriuretic Peptide Total Protein Albumin Triglycerides Cholesterol Total LDL Cholesterol HDL Cholesterol 11/10/18 11/10/18 11/10/18 06:15 06:15 11:14 WBC 3.6 L RBC 4.57 Hgb 13.8 Hct 42.7 MCV 93.4 MCH 30.2 MCHC 32.4 RDW 18.1 H Plt Count 183 MPV 8.4 Absolute Neuts (auto) 2.5 Neutrophils % 67.3 Lymphocytes % 19.2 Monocytes % 10.0 Eosinophils % 2.9 Basophils % 0.6 Nucleated RBC % 0 PT with INR INR PTT (Actin FS) D-Dimer Sodium 141 Potassium 4.1 Chloride 108 H Carbon Dioxide 27 Anion Gap 6 L BUN 21 H Creatinine 0.7 Creat Clearance w eGFR 86.25 POC Glucometer 113 Random Glucose 103 Hemoglobin A1c % Calcium 7.5 L Phosphorus Magnesium Total Bilirubin 0.5 AST 19 ALT 57 Alkaline Phosphatase 205 H Creatine Kinase Troponin I B-Natriuretic Peptide Total Protein 5.3 L Albumin 2.5 L Triglycerides Cholesterol Total LDL Cholesterol HDL Cholesterol 11/10/18 11/10/18 11/11/18 17:05 21:10 06:06 WBC RBC Hgb Hct MCV MCH MCHC RDW Plt Count MPV Absolute Neuts (auto) Neutrophils % Lymphocytes % Monocytes % Eosinophils % Basophils % Nucleated RBC % PT with INR INR PTT (Actin FS) D-Dimer Sodium Potassium Chloride Carbon Dioxide Anion Gap BUN Creatinine Creat Clearance w eGFR POC Glucometer 168 204 239 Random Glucose Hemoglobin A1c % Calcium Phosphorus Magnesium Total Bilirubin AST ALT Alkaline Phosphatase Creatine Kinase Troponin I B-Natriuretic Peptide Total Protein Albumin Triglycerides Cholesterol Total LDL Cholesterol HDL Cholesterol 11/11/18 11/11/18 11/11/18 11:31 18:05 21:09 WBC RBC Hgb Hct MCV MCH MCHC RDW Plt Count MPV Absolute Neuts (auto) Neutrophils % Lymphocytes % Monocytes % Eosinophils % Basophils % Nucleated RBC % PT with INR INR PTT (Actin FS) D-Dimer Sodium Potassium Chloride Carbon Dioxide Anion Gap BUN Creatinine Creat Clearance w eGFR POC Glucometer 269 310 249 Random Glucose Hemoglobin A1c % Calcium Phosphorus Magnesium Total Bilirubin AST ALT Alkaline Phosphatase Creatine Kinase Troponin I B-Natriuretic Peptide Total Protein Albumin Triglycerides Cholesterol Total LDL Cholesterol HDL Cholesterol 11/12/18 11/12/18 11/12/18 05:29 06:30 13:12 WBC RBC Hgb Hct MCV MCH MCHC RDW Plt Count MPV Absolute Neuts (auto) Neutrophils % Lymphocytes % Monocytes % Eosinophils % Basophils % Nucleated RBC % PT with INR INR PTT (Actin FS) D-Dimer Sodium 138 Potassium 3.9 Chloride 106 Carbon Dioxide 28 Anion Gap 5 L BUN 16 Creatinine 0.7 Creat Clearance w eGFR 86.25 POC Glucometer 174 208 Random Glucose 158 H Hemoglobin A1c % Calcium 7.9 L Phosphorus Magnesium 2.1 Total Bilirubin AST ALT Alkaline Phosphatase Creatine Kinase Troponin I B-Natriuretic Peptide Total Protein Albumin Triglycerides Cholesterol Total LDL Cholesterol HDL Cholesterol 11/12/18 11/12/18 11/13/18 17:21 21:42 06:30 WBC RBC Hgb Hct MCV MCH MCHC RDW Plt Count MPV Absolute Neuts (auto) Neutrophils % Lymphocytes % Monocytes % Eosinophils % Basophils % Nucleated RBC % PT with INR INR PTT (Actin FS) D-Dimer Sodium 135 L Potassium 4.3 Chloride 103 Carbon Dioxide 26 Anion Gap 6 L BUN 13 Creatinine 0.7 Creat Clearance w eGFR 86.25 POC Glucometer 280 252 Random Glucose 131 H Hemoglobin A1c % Calcium 8.3 L Phosphorus Magnesium 2.1 Total Bilirubin 0.8 AST 20 ALT 38 Alkaline Phosphatase 181 H Creatine Kinase Troponin I B-Natriuretic Peptide Total Protein 6.2 L Albumin 2.6 L Triglycerides Cholesterol Total LDL Cholesterol HDL Cholesterol 11/13/18 11/13/18 11/13/18 06:30 06:51 11:41 WBC 6.5 RBC 4.67 Hgb 14.1 Hct 43.2 MCV 92.5 MCH 30.1 MCHC 32.6 RDW 17.9 H Plt Count 208 MPV 8.2 Absolute Neuts (auto) 4.6 Neutrophils % 71.4 Lymphocytes % 14.8 D Monocytes % 12.2 H Eosinophils % 1.0 Basophils % 0.6 Nucleated RBC % 0 PT with INR INR PTT (Actin FS) D-Dimer Sodium Potassium Chloride Carbon Dioxide Anion Gap BUN Creatinine Creat Clearance w eGFR POC Glucometer 105 163 Random Glucose Hemoglobin A1c % Calcium Phosphorus Magnesium Total Bilirubin AST ALT Alkaline Phosphatase Creatine Kinase Troponin I B-Natriuretic Peptide Total Protein Albumin Triglycerides Cholesterol Total LDL Cholesterol HDL Cholesterol 11/13/18 11/13/18 11/13/18 12:15 16:43 21:05 WBC RBC Hgb Hct MCV MCH MCHC RDW Plt Count MPV Absolute Neuts (auto) Neutrophils % Lymphocytes % Monocytes % Eosinophils % Basophils % Nucleated RBC % PT with INR INR PTT (Actin FS) D-Dimer 1389 H Sodium Potassium Chloride Carbon Dioxide Anion Gap BUN Creatinine Creat Clearance w eGFR POC Glucometer 278 308 Random Glucose Hemoglobin A1c % Calcium Phosphorus Magnesium Total Bilirubin AST ALT Alkaline Phosphatase Creatine Kinase Troponin I B-Natriuretic Peptide Total Protein Albumin Triglycerides Cholesterol Total LDL Cholesterol HDL Cholesterol 11/14/18 11/14/18 11/14/18 05:30 05:30 06:22 WBC 5.8 RBC 4.62 Hgb 13.7 Hct 42.5 MCV 92.0 MCH 29.6 MCHC 32.2 RDW 17.9 H Plt Count 203 MPV 8.2 Absolute Neuts (auto) 3.7 Neutrophils % 64.4 Lymphocytes % 19.6 D Monocytes % 13.8 H Eosinophils % 1.7 Basophils % 0.5 Nucleated RBC % 0 PT with INR INR PTT (Actin FS) D-Dimer Sodium 139 Potassium 3.5 Chloride 103 Carbon Dioxide 29 Anion Gap 7 L BUN 13 Creatinine 0.7 Creat Clearance w eGFR 86.25 POC Glucometer 87 Random Glucose 92 Hemoglobin A1c % Calcium 7.9 L Phosphorus Magnesium Total Bilirubin 1.0 AST 15 ALT 29 Alkaline Phosphatase 172 H Creatine Kinase Troponin I B-Natriuretic Peptide Total Protein 5.6 L Albumin 2.3 L Triglycerides Cholesterol Total LDL Cholesterol HDL Cholesterol 11/14/18 11/14/18 11/14/18 10:02 12:14 17:00 WBC RBC Hgb Hct MCV MCH MCHC RDW Plt Count MPV Absolute Neuts (auto) Neutrophils % Lymphocytes % Monocytes % Eosinophils % Basophils % Nucleated RBC % PT with INR INR PTT (Actin FS) D-Dimer Sodium Potassium Chloride Carbon Dioxide Anion Gap BUN Creatinine Creat Clearance w eGFR POC Glucometer 196 167 287 Random Glucose Hemoglobin A1c % Calcium Phosphorus Magnesium Total Bilirubin AST ALT Alkaline Phosphatase Creatine Kinase Troponin I B-Natriuretic Peptide Total Protein Albumin Triglycerides Cholesterol Total LDL Cholesterol HDL Cholesterol 11/14/18 11/14/18 11/15/18 21:13 21:40 06:02 WBC RBC Hgb Hct MCV MCH MCHC RDW Plt Count MPV Absolute Neuts (auto) Neutrophils % Lymphocytes % Monocytes % Eosinophils % Basophils % Nucleated RBC % PT with INR INR PTT (Actin FS) D-Dimer Sodium Potassium Chloride Carbon Dioxide Anion Gap BUN Creatinine Creat Clearance w eGFR POC Glucometer 483 392 Random Glucose 543 H* Hemoglobin A1c % Calcium Phosphorus Magnesium Total Bilirubin AST ALT Alkaline Phosphatase Creatine Kinase Troponin I B-Natriuretic Peptide Total Protein Albumin Triglycerides Cholesterol Total LDL Cholesterol HDL Cholesterol 11/15/18 11/15/18 11/15/18 06:30 06:30 11:42 WBC 7.0 RBC 4.56 Hgb 13.5 Hct 41.8 MCV 91.7 MCH 29.6 MCHC 32.3 RDW 17.6 H Plt Count 241 MPV 8.3 Absolute Neuts (auto) 5.6 Neutrophils % 79.9 D Lymphocytes % 9.7 D Monocytes % 9.9 Eosinophils % 0.1 D Basophils % 0.4 Nucleated RBC % 0 PT with INR INR PTT (Actin FS) D-Dimer Sodium 138 Potassium 4.2 Chloride 101 Carbon Dioxide 29 Anion Gap 8 BUN 21 H Creatinine 1.3 Creat Clearance w eGFR 42.22 POC Glucometer 293 Random Glucose 442 H* Hemoglobin A1c % Calcium 8.1 L Phosphorus Magnesium Total Bilirubin 0.3 AST 12 L ALT 29 Alkaline Phosphatase 222 H Creatine Kinase Troponin I B-Natriuretic Peptide Total Protein 6.4 Albumin 2.6 L Triglycerides Cholesterol Total LDL Cholesterol HDL Cholesterol 11/15/18 11/15/18 11/16/18 17:30 22:17 02:46 WBC RBC Hgb Hct MCV MCH MCHC RDW Plt Count MPV Absolute Neuts (auto) Neutrophils % Lymphocytes % Monocytes % Eosinophils % Basophils % Nucleated RBC % PT with INR INR PTT (Actin FS) D-Dimer Sodium Potassium Chloride Carbon Dioxide Anion Gap BUN Creatinine Creat Clearance w eGFR POC Glucometer 381 587 437 Random Glucose Hemoglobin A1c % Calcium Phosphorus Magnesium Total Bilirubin AST ALT Alkaline Phosphatase Creatine Kinase Troponin I B-Natriuretic Peptide Total Protein Albumin Triglycerides Cholesterol Total LDL Cholesterol HDL Cholesterol 11/16/18 11/16/18 11/16/18 05:49 06:30 06:30 WBC 7.4 RBC 4.32 Hgb 12.9 Hct 39.7 MCV 91.8 MCH 29.8 MCHC 32.5 RDW 17.9 H Plt Count 252 MPV 8.5 Absolute Neuts (auto) 5.9 Neutrophils % 80.1 Lymphocytes % 11.2 Monocytes % 8.1 Eosinophils % 0.2 D Basophils % 0.4 Nucleated RBC % 0 PT with INR INR PTT (Actin FS) D-Dimer Sodium 136 Potassium 4.0 Chloride 98 Carbon Dioxide 32 Anion Gap 6 L BUN 25 H Creatinine 1.3 Creat Clearance w eGFR 42.22 POC Glucometer 436 Random Glucose 488 H* Hemoglobin A1c % Calcium 8.0 L Phosphorus Magnesium Total Bilirubin 0.2 AST 12 L ALT 24 Alkaline Phosphatase 227 H Creatine Kinase Troponin I B-Natriuretic Peptide Total Protein 6.1 L Albumin 2.5 L Triglycerides Cholesterol Total LDL Cholesterol HDL Cholesterol 11/16/18 11/16/18 11/16/18 12:01 17:11 20:51 WBC RBC Hgb Hct MCV MCH MCHC RDW Plt Count MPV Absolute Neuts (auto) Neutrophils % Lymphocytes % Monocytes % Eosinophils % Basophils % Nucleated RBC % PT with INR INR PTT (Actin FS) D-Dimer Sodium Potassium Chloride Carbon Dioxide Anion Gap BUN Creatinine Creat Clearance w eGFR POC Glucometer 323 270 280 Random Glucose Hemoglobin A1c % Calcium Phosphorus Magnesium Total Bilirubin AST ALT Alkaline Phosphatase Creatine Kinase Troponin I B-Natriuretic Peptide Total Protein Albumin Triglycerides Cholesterol Total LDL Cholesterol HDL Cholesterol 11/17/18 11/17/18 11/17/18 06:30 06:30 06:39 WBC 8.0 RBC 4.66 Hgb 13.6 Hct 42.6 MCV 91.4 MCH 29.1 MCHC 31.9 L RDW 17.0 H Plt Count 305 D MPV 8.0 Absolute Neuts (auto) 6.0 Neutrophils % 75.2 Lymphocytes % 16.6 D Monocytes % 7.7 Eosinophils % 0.2 Basophils % 0.3 Nucleated RBC % 0 PT with INR INR PTT (Actin FS) D-Dimer Sodium 138 Potassium 3.9 Chloride 102 Carbon Dioxide 27 Anion Gap 9 BUN 33 H Creatinine 1.1 Creat Clearance w eGFR 51.20 POC Glucometer 222 Random Glucose 222 H Hemoglobin A1c % Calcium 8.5 Phosphorus Magnesium Total Bilirubin 0.4 AST 14 L ALT 27 Alkaline Phosphatase 198 H Creatine Kinase Troponin I B-Natriuretic Peptide Total Protein 6.8 Albumin 2.8 L Triglycerides Cholesterol Total LDL Cholesterol HDL Cholesterol 11/17/18 11/17/18 11/17/18 11:45 17:00 21:43 WBC RBC Hgb Hct MCV MCH MCHC RDW Plt Count MPV Absolute Neuts (auto) Neutrophils % Lymphocytes % Monocytes % Eosinophils % Basophils % Nucleated RBC % PT with INR INR PTT (Actin FS) D-Dimer Sodium Potassium Chloride Carbon Dioxide Anion Gap BUN Creatinine Creat Clearance w eGFR POC Glucometer 112 207 292 Random Glucose Hemoglobin A1c % Calcium Phosphorus Magnesium Total Bilirubin AST ALT Alkaline Phosphatase Creatine Kinase Troponin I B-Natriuretic Peptide Total Protein Albumin Triglycerides Cholesterol Total LDL Cholesterol HDL Cholesterol 11/18/18 11/18/18 11/18/18 06:30 06:30 06:57 WBC 7.9 RBC 4.60 Hgb 13.5 Hct 42.3 MCV 91.9 MCH 29.4 MCHC 32.0 RDW 17.1 H Plt Count 299 MPV 8.0 Absolute Neuts (auto) 6.0 Neutrophils % 76.4 Lymphocytes % 15.3 Monocytes % 7.7 Eosinophils % 0.2 Basophils % 0.4 Nucleated RBC % 0 PT with INR INR PTT (Actin FS) D-Dimer Sodium 137 Potassium 4.0 Chloride 100 Carbon Dioxide 33 H Anion Gap 4 L BUN 38 H Creatinine 1.1 Creat Clearance w eGFR 51.20 POC Glucometer 241 Random Glucose 234 H Hemoglobin A1c % Calcium 8.3 L Phosphorus Magnesium Total Bilirubin 0.3 AST 14 L ALT 25 Alkaline Phosphatase 150 H Creatine Kinase Troponin I B-Natriuretic Peptide Total Protein 6.2 L Albumin 2.5 L Triglycerides Cholesterol Total LDL Cholesterol HDL Cholesterol 11/18/18 11/18/18 11/18/18 11:50 17:51 21:10 WBC RBC Hgb Hct MCV MCH MCHC RDW Plt Count MPV Absolute Neuts (auto) Neutrophils % Lymphocytes % Monocytes % Eosinophils % Basophils % Nucleated RBC % PT with INR INR PTT (Actin FS) D-Dimer Sodium Potassium Chloride Carbon Dioxide Anion Gap BUN Creatinine Creat Clearance w eGFR POC Glucometer 198 363 306 Random Glucose Hemoglobin A1c % Calcium Phosphorus Magnesium Total Bilirubin AST ALT Alkaline Phosphatase Creatine Kinase Troponin I B-Natriuretic Peptide Total Protein Albumin Triglycerides Cholesterol Total LDL Cholesterol HDL Cholesterol 11/19/18 11/19/18 11/19/18 05:36 11:15 17:28 WBC RBC Hgb Hct MCV MCH MCHC RDW Plt Count MPV Absolute Neuts (auto) Neutrophils % Lymphocytes % Monocytes % Eosinophils % Basophils % Nucleated RBC % PT with INR INR PTT (Actin FS) D-Dimer Sodium Potassium Chloride Carbon Dioxide Anion Gap BUN Creatinine Creat Clearance w eGFR POC Glucometer 331 211 234 Random Glucose Hemoglobin A1c % Calcium Phosphorus Magnesium Total Bilirubin AST ALT Alkaline Phosphatase Creatine Kinase Troponin I B-Natriuretic Peptide Total Protein Albumin Triglycerides Cholesterol Total LDL Cholesterol HDL Cholesterol Active Medications Generic Name Dose Route Start Last Admin Trade Name Freq PRN Reason Stop Dose Admin Acetaminophen 650 mg 11/15/18 18:23 11/18/18 22:21 Tylenol - PO 650 mg Q4H PRN Administration PAIN 1-3 Aspirin 81 mg 11/13/18 10:00 11/19/18 10:22 Ecotrin - PO 81 mg DAILY LETA Administration Atorvastatin Calcium 10 mg 11/13/18 22:00 11/18/18 22:20 Lipitor - PO 10 mg HS LETA Administration Bisacodyl 5 mg 11/19/18 10:00 Dulcolax - PO DAILY PRN CONSTIPATION Carvedilol 25 mg 11/12/18 22:00 11/19/18 10:21 Coreg - PO 25 mg BID LETA Administration Furosemide 60 mg 11/18/18 14:00 11/19/18 16:28 Lasix - PO 60 mg BIDLASIX LETA Administration Guaifenesin/Codeine Phosphate 5 ml 11/15/18 15:37 11/19/18 06:53 Robitussin Ac - PO 5 ml TID PRN Administration COUGH Heparin Sodium (Porcine) 5,000 unit 11/12/18 22:00 11/19/18 10:22 Heparin - SQ 5,000 unit BID LETA Administration Ceftriaxone Sodium 1 gm/ 50 mls @ 100 mls/hr 11/16/18 14:30 11/19/18 10:21 Dextrose IVPB 100 mls/hr DAILY [facility] Administration Protocol Insulin Aspart 1 vial 11/16/18 17:12 11/19/18 11:20 Novolog Vial Sliding Scale - SQ 6 unit ACHS [facility] Administration Protocol Insulin Detemir 15 units 11/14/18 00:13 11/18/18 22:23 Levemir Vial SQ 15 unit HS LETA Administration Insulin Detemir 40 units 11/16/18 17:13 11/19/18 06:53 Levemir Vial SQ 40 unit DAILY@0700 LETA Administration Isosorbide Mononitrate 30 mg 11/13/18 10:00 11/19/18 10:21 Imdur - PO 30 mg DAILY LETA Administration Losartan Potassium 50 mg 11/13/18 10:00 11/19/18 10:21 Cozaar - PO 50 mg DAILY LETA Administration Metolazone 2.5 mg 11/19/18 05:30 11/19/18 05:35 Zaroxolyn - PO 2.5 mg 0530 LETA Administration Nicotine 7 mg 11/13/18 10:00 11/19/18 10:23 Nicoderm Patch - TD 7 mg DAILY LETA Administration Ondansetron HCl 4 mg 11/12/18 15:57 Zofran Odt - SL Q6H PRN NAUSEA AND/OR VOMITING Polyethylene Glycol 17 gm 11/18/18 22:00 11/19/18 10:48 Miralax (For Daily Use) - PO Not Given BID LETA Pramipexole Dihydrochloride 0.25 mg 11/12/18 22:00 11/18/18 22:20 Mirapex - PO 0.25 mg HS LETA Administration Prednisone 30 mg 11/18/18 10:00 11/19/18 10:21 Deltasone - PO 30 mg DAILY LETA Administration Spironolactone 25 mg 11/13/18 10:00 11/19/18 10:22 Aldactone - PO 25 mg DAILY LETA Administration Sumatriptan Succinate 100 mg 11/15/18 18:23 Imitrex - PO ONCE PRN HEADACHE Topiramate 50 mg 11/15/18 22:00 11/19/18 10:22 Topamax - PO 50 mg BID LETA Administration Microbiology 11/14/18 15:50 Blood - Peripheral Venous Blood Culture - Final NO GROWTH AFTER 5 DAYS INCUBATION 11/14/18 18:00 Blood - Peripheral Venous Blood Culture - Preliminary NO GROWTH OBTAINED AFTER 96 HOURS, INCUBATION TO CONTINUE FOR 1 DAYS. 11/14/18 18:30 Sputum - Expectorated Gram Stain - Final 11/14/18 18:30 Sputum - Expectorated Sputum Culture - Final NORMAL RESPIRATORY WILLAM 11/14/18 23:15 Urine For Antigen Detection Legionella Antigen - Final 11/14/18 23:15 Urine For Antigen Detection Streptococcus pneumoniae Antigen (M - Final Condition: Stable - Instructions Diet, Activity, Other Instructions: follow up with PMD continue current med regimen return to ER if develop respiratory distress, chest pain Disposition: HALF-WAY FACILITY - Home Medications Comprehensive Discharge Medication List: Ambulatory Orders Atorvastatin Ca [Lipitor] 10 mg PO HS #30 tab 05/03/17 Montelukast Na [Singulair -] 10 mg PO HS #30 tab 05/03/17 Esomeprazole Magnesium [Nexium 24Hr] 20 mg PO DAILY 04/20/18 Insulin (Levemir) [Levemir Vial] 15 units SQ ACBK units 04/24/18 Magnesium Hydrox 2400MG/30Ml [Milk of Magnesia -] 30 ml PO Q8H PRN #1 bot Polyethylene Glycol 3350 [Miralax 119 gm Btl -] 17 gm PO DAILY #1 bottle Sennosides [Senna -] 1 tab PO HS #30 tablet 05/02/18 Albuterol 0.083% Nebulizer Chayito [Ventolin 0.083% Nebulizer Soln -] 1 amp NEB Q4H PRN amp 09/26/18 Insulin Sliding Scale [Novolog Vial Sliding Scale -] 1 vial SQ ASDIR 10/20/18 Albuterol 2.5/Ipratropium 0.5 [Duoneb -] 1 neb NEB Q4H PRN #180 amp 10/25/18 Carvedilol [Coreg -] 25 mg PO BID #60 tablet MDD 2 10/25/18 Furosemide [Lasix -] 80 mg PO DAILY #60 tablet MDD 2 10/25/18 Insulin (Levemir) [Levemir Vial] 20 unit SQ HS #1 vial 10/25/18 Losartan Potassium [Cozaar -] 50 mg PO DAILY #60 tablet MDD 2 10/25/18 Nicotine Patch [Nicoderm Patch -] 7 mg TD DAILY #30 patch MDD 1 10/25/18 Pramipexole Dihydrochloride [Mirapex -] 0.25 mg PO HS #30 tablet MDD 1 10/25/18 Prednisone 10 mg PO AM #30 tablet MDD 1 10/25/18 Spironolactone [Aldactone -] 25 mg PO DAILY #30 tablet MDD 1 10/25/18 Topiramate [Topamax -] 25 mg PO BID #14 tablet MDD 2 10/25/18
[2018-11-19] MEDS: ACETAMINOPHEN 325 MG TABLET (FP) PO PRN (21:42)
[2018-11-19] MEDS: ATORVASTATIN CA 10 MG TABLET (FP) PO SCH (21:43)
[2018-11-19] MEDS: PRAMIPEXOLE DIHYDROCHLORIDE 0.25 MG TABLET PO SCH (21:48)
[2018-11-19] MEDS ORDERED: PT OWN MED DRAWER 7, Y5N ONE (21:48)
[2018-11-20] MEDS ORDERED: PT OWN MED DRAWER 7, Y5N ONE ×2 (02:51→10:36)
[2018-11-20] MEDS: METOLAZONE 2.5 MG TABLET (FP) PO SCH (05:38)
[2018-11-20] MEDS: FUROSEMIDE 20 MG TABLET (FP) PO SCH ×2 (06:17→15:00)
[2018-11-20] MEDS: INSULIN SLIDING SCALE (NOVOLOG) 1 VIAL SQ SCH ×2 (06:21→12:48)
[2018-11-20] MEDS: INSULIN (LEVEMIR) 100 UNITS/ML UNITS SQ SCH (07:14)
--- NOTE | 2018-11-20 09:51 | DS ---
Physical Examination Vital Signs: Vital Signs Temperature 98.1 F 11/20/18 06:00 Pulse Rate 97 H 11/20/18 06:00 Respiratory Rate 20 11/20/18 06:00 Blood Pressure 121/94 11/20/18 06:00 O2 Sat by Pulse Oximetry (%) 96 11/19/18 21:00 Cardiovascular: Yes: S1, S2 Respiratory: Yes: Regular, CTA Bilaterally Gastrointestinal: Yes: Normal Bowel Sounds, Soft Labs: CBC, BMP 11/18/18 06:30 11/18/18 06:30 Discharge Summary Reason For Visit: ACUTE ON CHRONIC CHF Current Active Problems CHF (congestive heart failure) (Acute) Chronic hypoxemic respiratory failure (Acute) Headache (Acute) Noncompliance of patient with dietary regimen (Acute) Noncompliance with diabetes treatment (Acute) Type 2 diabetes mellitus with diabetic nephropathy (Acute) Hospital Course: Patient is a 58 y/o female with past medical history HTN, CHF, COPD on O2, IDDM presented to ER with complaints of SOB for 4 days, orthopnea, and chest pressure with exertion. Patient is s/p mechanical fall x 2 trying to get on bus 2/2 knee and hip pain. ER was significant for elevated BNP 5069, no leukocytosis, CXR show L and R base infiltrate. repeat Xray improved. - Problems (1) Headache Assessment/Plan: ct head done no acute pathology neurology eval noted topiramate and coreg and mirapex resumed for RLS Code(s): R51 - HEADACHE (2) CHF (congestive heart failure) Assessment/Plan: echo done severly reduced systolic function and global hypokinesis iv 40mg lasix BID inc to 60mg iv bid-PO daily weight- coreg 25mg bid cozaar aldactone added zaroxolyn close monitoring of labs Code(s): I50.9 - HEART FAILURE, UNSPECIFIED (3) Abnormal liver enzymes Assessment/Plan: secondary to hepatic congestion lft is trending down Code(s): R74.8 - ABNORMAL LEVELS OF OTHER SERUM ENZYMES (4) Diabetes Assessment/Plan: sliding scale insulin dose increased per endocrine [id number] 11.1 Code(s): E11.9 - TYPE 2 DIABETES MELLITUS WITHOUT COMPLICATIONS Qualifiers: Diabetes mellitus type: type 2 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 Diabetes mellitus complication status: with unspecified complications Qualified Code(s): E11.8 - Type 2 diabetes mellitus with unspecified complications; 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 (5) COPD (chronic obstructive pulmonary disease) Assessment/Plan: oxygen and bronchodilators no need for steroids Code(s): J44.9 - CHRONIC OBSTRUCTIVE PULMONARY DISEASE, UNSPECIFIED Qualifiers: COPD type: unspecified COPD Qualified Code(s): J44.9 - Chronic obstructive pulmonary disease, unspecified dc planning to snf Condition: Stable - Instructions Diet, Activity, Other Instructions: follow up with PMD continue current med regimen return to ER if develop respiratory distress, chest pain [facility] - Home Medications Comprehensive Discharge Medication List: Ambulatory Orders Atorvastatin Ca [Lipitor] 10 mg PO HS #30 tab 05/03/17 Montelukast Na [Singulair -] 10 mg PO HS #30 tab 05/03/17 Esomeprazole Magnesium [Nexium 24Hr] 20 mg PO DAILY 04/20/18 Insulin (Levemir) [Levemir Vial] 15 units SQ ACBK units 04/24/18 Magnesium Hydrox 2400MG/30Ml [Milk of Magnesia -] 30 ml PO Q8H PRN #1 bot Polyethylene Glycol 3350 [Miralax 119 gm Btl -] 17 gm PO DAILY #1 bottle Sennosides [Senna -] 1 tab PO HS #30 tablet 05/02/18 Albuterol 0.083% Nebulizer [place] [Ventolin 0.083% Nebulizer Soln -] 1 amp NEB Q4H PRN amp 09/26/18 Insulin Sliding Scale [Novolog Vial Sliding Scale -] 1 vial SQ ASDIR 10/20/18 Albuterol 2.5/Ipratropium 0.5 [Duoneb -] 1 neb NEB Q4H PRN #180 amp 10/25/18 Carvedilol [Coreg -] 25 mg PO BID #60 tablet MDD 2 10/25/18 Furosemide [Lasix -] 80 mg PO DAILY #60 tablet MDD 2 10/25/18 Insulin (Levemir) [Levemir Vial] 20 unit SQ HS #1 vial 10/25/18 Losartan Potassium [Cozaar -] 50 mg PO DAILY #60 tablet MDD 2 10/25/18 Nicotine Patch [Nicoderm Patch -] 7 mg TD DAILY #30 patch MDD 1 10/25/18 Pramipexole Dihydrochloride [Mirapex -] 0.25 mg PO HS #30 tablet MDD 1 10/25/18 Prednisone 10 mg PO AM #30 tablet MDD 1 10/25/18 Spironolactone [Aldactone -] 25 mg PO DAILY #30 tablet MDD 1 10/25/18 Topiramate [Topamax -] 25 mg PO BID #14 tablet MDD 2 10/25/18
[2018-11-20] MEDS ORDERED: cefTRIAXone SODIUM 1 GM VIAL ONE (10:36)
[2018-11-20] MEDS ORDERED: DEXTROSE 5%-WATER - 50 ML IVPB ONE (10:36)
[2018-11-20 10:47] VITALS: TEMP 97.8
[2018-11-20] MEDS: ISOSORBIDE MONONITRATE 30 MG TAB.SR.24H (FP) PO SCH (10:48)
[2018-11-20] MEDS: LOSARTAN POTASSIUM 50 MG TABLET (FP) PO SCH (10:48)
[2018-11-20] MEDS: ASPIRIN COATED 81 MG TABLET.EC PO SCH (10:48)
[2018-11-20] MEDS: CEFTRIAXONE 1 GM in DEXTROSE 5%-WATER - 50 ML IVPB SCH (10:48)
[2018-11-20] MEDS: SPIRONOLACTONE 25 MG TABLET (FP) PO SCH (10:48)
[2018-11-20] MEDS: CARVEDILOL 25 MG TABLET (FP) PO SCH (10:48)
[2018-11-20] MEDS: TOPIRAMATE 25 MG TABLET (FP) PO SCH (10:49)
[2018-11-20] MEDS: NICOTINE 7 MG/24 HOURS TOPICAL PATCH TD SCH (10:50)
[2018-11-20] MEDS: predniSONE 20 MG TABLET (UD) PO SCH (10:50)
[2018-11-20] MEDS: POLYETHYLENE GLYCOL 3350 119 GM BTL PO SCH (10:51)
[2018-11-20] MEDS: HEPARIN NA (PORCINE) 5,000 UNITS/ML 1ML VIAL SQ SCH (10:51)
--- NOTE | 2018-11-20 11:05 | PN ---
Progress Note (short form) - Note Progress Note: PULMONARY States breathing is improving. Less cough, wheezing. Vital Signs Period Temp Pulse Resp BP Sys/Plasencia Pulse Ox Last 24 Hr 97.4 F-98.1 F 83-98 19-22 117-151/65-94 96 Gen: NAD at rest Heart: RRR Lung: decreased breath sounds at the bases Abd: soft, nontender Ext: distal edema CBC, BMP 11/18/18 06:30 11/18/18 06:30 Active Medications Acetaminophen (Tylenol -) 650 mg PO Q4H PRN PRN Reason: PAIN 1-3 Last Admin: 11/19/18 21:42 Dose: 650 mg Aspirin (Ecotrin -) 81 mg PO DAILY [facility] Last Admin: 11/20/18 10:48 Dose: 81 mg Atorvastatin Calcium (Lipitor -) 10 mg PO HS [facility] Last Admin: 11/19/18 21:43 Dose: 10 mg Bisacodyl (Dulcolax -) 5 mg PO DAILY PRN PRN Reason: CONSTIPATION Carvedilol (Coreg -) 25 mg PO BID [facility] Last Admin: 11/20/18 10:48 Dose: 25 mg Furosemide (Lasix -) 60 mg PO BIDLASIX [facility] Last Admin: 11/20/18 06:17 Dose: 60 mg Guaifenesin/Codeine Phosphate (Robitussin Ac -) 5 ml PO TID PRN PRN Reason: COUGH Last Admin: 11/19/18 21:43 Dose: 5 ml Heparin Sodium (Porcine) (Heparin -) 5,000 unit SQ BID [facility] Last Admin: 11/20/18 10:51 Dose: 5,000 unit Ceftriaxone Sodium 1 gm/ (Dextrose) 50 mls @ 100 mls/hr IVPB DAILY [facility]; Protocol Last Admin: 11/20/18 10:48 Dose: 100 mls/hr Insulin Aspart (Novolog Vial Sliding Scale -) 1 vial SQ ACHS [facility]; Protocol Last Admin: 11/20/18 06:21 Dose: Not Given Insulin Detemir (Levemir Vial) 15 units SQ HS [facility] Last Admin: 11/19/18 21:51 Dose: 15 unit Insulin Detemir (Levemir Vial) 40 units SQ DAILY@0700 [facility] Last Admin: 11/20/18 07:14 Dose: 40 unit Isosorbide Mononitrate (Imdur -) 30 mg PO DAILY [facility] Last Admin: 11/20/18 10:48 Dose: 30 mg Losartan Potassium (Cozaar -) 50 mg PO DAILY [facility] Last Admin: 11/20/18 10:48 Dose: 50 mg Metolazone (Zaroxolyn -) 2.5 mg PO 529 [facility] Last Admin: 11/20/18 05:38 Dose: 2.5 mg Nicotine (Nicoderm Patch -) 7 mg TD DAILY [facility] Last Admin: 11/20/18 10:50 Dose: 7 mg Ondansetron HCl (Zofran Odt -) 4 mg SL Q6H PRN PRN Reason: NAUSEA AND/OR VOMITING Polyethylene Glycol (Miralax (For Daily Use) -) 17 gm PO BID [facility] Last Admin: 11/20/18 10:51 Dose: Not Given Pramipexole Dihydrochloride (Mirapex -) 0.25 mg PO HS [facility] Last Admin: 11/19/18 21:48 Dose: 0.25 mg Prednisone (Deltasone -) 30 mg PO DAILY [facility] Last Admin: 11/20/18 10:50 Dose: 30 mg Spironolactone (Aldactone -) 25 mg PO DAILY [facility] Last Admin: 11/20/18 10:48 Dose: 25 mg Sumatriptan Succinate (Imitrex -) 100 mg PO ONCE PRN PRN Reason: HEADACHE Topiramate (Topamax -) 50 mg PO BID [facility] Last Admin: 11/20/18 10:49 Dose: 50 mg A/P Acute on Chronic Systolic Heart Failure improving +Troponins Chronic Hypoxic Respiratory Failure COPD HTN DM Hemoptysis improved Pnuemonia - lasix - O2 to keep Spo2 >90% - inhaled bronchodilators as needed - complete antibiotics - DVT prophylaxis Problem List - Problems (1) Acute on chronic systolic (congestive) heart failure Code(s): I50.23 - ACUTE ON CHRONIC SYSTOLIC (CONGESTIVE) HEART FAILURE (2) COPD (chronic obstructive pulmonary disease) Code(s): J44.9 - CHRONIC OBSTRUCTIVE PULMONARY DISEASE, UNSPECIFIED Qualifiers: COPD type: unspecified COPD Qualified Code(s): J44.9 - Chronic obstructive pulmonary disease, unspecified (3) Diabetes Code(s): E11.9 - TYPE 2 DIABETES MELLITUS WITHOUT COMPLICATIONS Qualifiers: Diabetes mellitus type: type 2 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
[2018-11-20 15:37] VITALS: BP 124/83; PULSE 95
== END 2018-11-20 17:28 | DRG 291 ==
LOC: JER 11:10 → JERBED 14:08 → J4W 15:21 → J5S 11-12 14:46
PROVIDERS: ADMIT Student in an Organized Health Care Education/Training Program; ATTEND Student in an Organized Health Care Education/Training Program
DX: I11.0 Hypertensive heart disease with heart failure (principal); J18.9 Pneumonia, unspecified organism; J96.11 Chronic respiratory failure with hypoxia; R04.2 Hemoptysis; J44.1 Chronic obstructive pulmonary disease with (acute) exacerbation; I50.23 Acute on chronic systolic (congestive) heart failure; E11.21 Type 2 diabetes mellitus with diabetic nephropathy; Z91.14 Patient's other noncompliance with medication regimen; R51 Headache; R74.8 Abnormal levels of other serum enzymes; E66.9 Obesity, unspecified; Z68.35 Body mass index [BMI] 35.0-35.9, adult; E78.5 Hyperlipidemia, unspecified; G43.909 Migraine, unspecified, not intractable, without status migrainosus; G25.81 Restless legs syndrome; E11.42 Type 2 diabetes mellitus with diabetic polyneuropathy; E11.65 Type 2 diabetes mellitus with hyperglycemia; I42.9 Cardiomyopathy, unspecified; E87.70 Fluid overload, unspecified; R07.9 Chest pain, unspecified
CPT/HCPCS: 36415; 70450-TC; 71045-TC-FY; 71275-TC; 73523-TC-FY; 73560-TC-RT-FY; 73562-TC-LT-FY; 80048; 80053; 80061; 82550; 82947; 82962; 83036; 83721; 83735; 83880; 84100; 84484; 85025; 85379; 85610; 85730; 87040; 87070; 87205; 87899; 93005; 93010; 93306-TC; 93970-TC; 94640; 97116-GP; 97161-GP; 99285-25; J1644; Q0162

== ENCOUNTER 2019-03-13 14:26 | Inpatient (IN) | payer OTHER | END 2019-03-28 15:31 | disposition home or self-care (01) | LOC: J4S 03-24 18:48 → JER 14:26 → JERBED 18:32 → J7W 20:05 ==